=== PATIENT | male | born 1945 | race Caucasian/White ===

== ENCOUNTER → 2016-03-22 | Outpatient (CLI) | payer MEDICARE ==
[~2016-03-22] MED LIST: AMIO200T2 PO; APIX2.5T PO; APIX5TAB PO; ASP325T PO; ASPI-86 PO; ASPI-983 PO; ATEN25TA PO; ATEN50TA PO; ATOR10TA66 PO; ATOR40TA PO; ATRV10T PO; AZIT250T PO; BUME1TAB4 PO; CEFD300C3 PO; CIPR-242 PO; CLIN300C11 PO; CLOP75TA PO; CLOP75TA28 PO; CLPD75T PO; DOXY100C2 PO; FERR-57 PO; FRSM40T PO; FURO40TA4 PO; GABA-488 PO; GABA300T PO; GBPN300C; GLBR5T; GLBR5T PO; HYDR-3714 PO; HYDR-3812 PO; HYDR115S2 PO; INSU100C7 SQ; INSU100I14 SC; INSU100I29 SC; INSU100I29 SQ; INSU100I4 SQ; INSU100V SQ; INSU100V16 SC; INSU100V5 SQ; INSU100V6 SQ; IPRA3AMP INH; MAGN400T6 PO; METF1000 PO; MPR22T TOP; MTF500T PO; MULT-517 PO; NORM2DIS3 IV; ONDA4VIA28 IV; POTA20TA8 PO; QNPR10T PO; QUIN20TA27 PO; RANI150T11 PO; SULF-222 PO; SULF1TAB35 PO; [UNRECOGNIZED DRUG - CODE]
--- OUTSIDE RECORDS SUMMARY | 2016-03-22 09:02 | XMS REPORT | Continuity of Care Document ---
Author Author [facility] Organization [facility] Address Unknown Phone Unavailable Care Team Providers Care Rn Radiation Oncology Name Role Phone TAMIKA WHITE DO PCP Insurance Providers Payer Name Policy Number Subscriber Name Relationship Wps Medicare [id number] Teto Cho 18 Self / Same As Patient Blue Cross [facility] Supp [id number] Teto Cho 18 Self / Same As Patient Advance Directives Directive Response Recorded Date/Time Advance Directives No 07/30/14 7:11am Health Care Power of Transportation Aid No 07/30/14 7:11am Organ Donor No 07/30/14 [...] Encounters Encounter Location Date/Time Discharged Recurring Via [facility] 09/01/14 11:00am
--- NOTE | 2016-03-22 12:02 | Diagnostic Imaging Report ---
Examination: Segmental lower extremity pressure assessment and ankle brachial index measurement. Post volume recording waveforms are also obtained in the lower extremities. Indication: Peripheral arterial disease Findings: Systolic pressure in the right Upper extremity is 116, and the left Upper extremity is 119 mmHg. RIGHT Lower extremity systolic pressures are: In the upper thigh not performed , in the lower thigh 128, in the upper calf above 180, and at the ankle 146. Great toe pressure is 52. LEFT Lower extremity systolic pressures are: In the upper thigh not performed , in the lower thigh 129, in the upper calf above 180, and at the ankle above 270. Great toe pressure is 94. NICK on the right is 1.2, and on the left is falsely elevated. Pulse volume recordings waveforms demonstrate mild dampening on the waveforms at the ankle and the significant dampening of the waveform at the right big toe. Impression: Suggestion of calcified vessels resulting in elevated pressure measurements. There is dampening of the PVR waveforms at the ankles and the in the right great toe. Dictated by: Dictated on workstation # [id number]
== END ==
LOC: RAD 08:59
PROVIDERS: ATTEND Internal Medicine
DX: I70.232 Atherosclerosis of native arteries of right leg with ulceration of calf (principal); L97.212 Non-pressure chronic ulcer of right calf with fat layer exposed; E11.622 Type 2 diabetes mellitus with other skin ulcer
CPT/HCPCS: 93923

== ENCOUNTER 2016-03-24 10:10 | Outpatient (RCR) | payer MEDICARE ==
[~2016-03-24 10:10] MED LIST changes: -APIX5TAB PO
--- OUTSIDE RECORDS SUMMARY | 2016-03-24 10:13 | XMS REPORT | Continuity of Care Document ---
Author Author [facility] Organization [facility] Address Unknown Phone Unavailable Care Team Providers Care Merchandise Stocker Name Role Phone TAMIKA WHITE DO PCP Insurance Providers Payer Name Policy Number Subscriber Name Relationship Wps Medicare [id number] Teto Cho 18 Self / Same As Patient Blue Cross [facility] Supp [id number] Teto Cho 18 Self / Same As Patient Advance Directives Directive Response Recorded Date/Time Advance Directives No 07/30/14 7:11am Health Care Power of Mainframe Applications Developer No 07/30/14 7:11am Organ Donor No 07/30/14 [...] Encounters Encounter Location Date/Time Discharged Recurring Via [facility] 09/01/14 11:00am
== END 2016-06-22 | disposition home or self-care (01) ==
LOC: DSME 10:10
PROVIDERS: ATTEND Family Medicine
DX: E11.65 Type 2 diabetes mellitus with hyperglycemia (principal)

== ENCOUNTER 2016-06-09 08:41 | Outpatient (RCR) | payer MEDICARE ==
--- OUTSIDE RECORDS SUMMARY | 2016-03-17 08:20 | XMS REPORT | Continuity of Care Document ---
Author Author [facility] Organization [facility] Address Unknown Phone Unavailable Care Team Providers Care Sales Trader Name Role Phone TAMIKA WHITE DO PCP Insurance Providers Payer Name Policy Number Subscriber Name Relationship Wps Medicare [id number] Teto Cho 18 Self / Same As Patient Blue Cross [facility] Supp [id number] Teto Cho 18 Self / Same As Patient Advance Directives Directive Response Recorded Date/Time Advance Directives No 07/30/14 7:11am Health Care Power of Environmental Advisor No 07/30/14 7:11am Organ Donor No 07/30/14 7:11am Problems Medical Problems Problem Onset Date Status Diabetes mellitus Unknown Active Diabetes mellitus Unknown Active Acute renal insufficiency Unknown Active Poorly controlled diabetes mellitus Unknown Active Near syncope Unknown Active Medications Medication Dose Route Sig Days/Qty Instructions Order Date Discontinued Date Status Glyburide 06/07/06 10/14/08 Discontinued Gabapentin 06/07/06 10/14/08 Discontinued Furosemide 40 Mg PO TWICE A DAY 06/07/06 Active Metformin HCl (Glucophage) 500 Mg PO TWICE A DAY 06/07/06 07/31/14 Discontinued Quinapril HCl 10 Mg PO DAILY 06/07/06 07/31/14 Discontinued Atorvastatin Calcium 40 Mg PO DAILY 06/07/06 12/30/09 Discontinued Insulin Human Lente 06/07/06 10/14/08 Discontinued Insulin Human Lente 06/07/06 10/14/08 Discontinued Insulin Human Lente 06/07/06 10/14/08 Discontinued Glyburide 5 Mg PO TWICE A DAY 10/14/08 01/20/14 Discontinued Gabapentin (Neurontin) 300 Mg PO THREE TIMES A DAY 10/14/08 Active Clopidogrel Bisulfate 75 Mg PO DAILY 10/14/08 01/20/14 Discontinued Atenolol 50 Mg PO DAILY 10/14/08 01/20/14 Discontinued Aspirin 81 Mg PO DAILY 10/14/08 12/30/09 Discontinued Ferrous Sulfate 325 Mg PO DAILY 12/29/09 06/03/11 Discontinued Insulin Glargine,Hum.rec.anlog 55 Unit SQ DAILY TAKEN IN AM DAILY 12/2912/29/09 Discontinued Insulin Glargine,Hum.rec.anlog 40 Unit SQ DAILY 12/29/09 12/29/09 Discontinued Insulin Lispro Protam/Lispro Human 55 U SQ DAILY TAKEN IN AM 12/29/09 09/07/13 Discontinued Insulin Lispro Protam/Lispro Human 40 U SQ DAILY 12/29/09 09/07/13 Discontinued Aspirin 325 Mg PO DAILY 12/30/09 Active Atorvastatin Calcium 40 Mg PO BEDTIME 12/30/09 07/31/14 Discontinued Acetaminophen/Hydrocodone Bitart 1 Tab PO TWICE A DAY PRN PAIN Active Insulin Glargine 40 Units SQ DAILY 09/07/13 Active Mupirocin 22 Gm TOP TWICE A DAY 1 Qty 09/07/13 07/24/14 Discontinued Atenolol 25 Mg PO BEDTIME 01/20/14 07/31/14 Discontinued Insulin Glargine,Hum.rec.anlog 30 Unit SQ BEDTIME 07/24/14 Active Clopidogrel Bisulfate 75 Mg PO DAILY 07/24/14 Active Atorvastatin Calcium 10 Mg PO BEDTIME 07/31/14 Active Atenolol 25 Mg PO BEDTIME TAKES 1/2 (50MG) TABLET 07/31/14 Active Metformin Hcl 500 Mg PO TWICE A DAY 07/31/14 Active Quinapril Hcl 10 Mg PO DAILY TAKES 1/2 (20MG) TABLET 07/31/14 Active Social History Social History Problem Response Recorded Date/Time Alcohol Use Denies Use 07/24/2014 9:40am Recreational Drug Use No 07/24/2014 9:40am Recent Foreign Travel No 09/29/2013 9:26pm Recent Infectious Disease Exposure No 09/29/2013 9:26pm Hospital Discharge Instructions No hospital discharge instructions. Plan of Care No plan of care. Functional Status No functional status results. Allergies, Adverse Reactions, Alerts Allergen Type Severity Reaction Status Last Updated NKANo Known Allergies Allergy Unknown Active 06/07/06 Immunizations Name Given Type Tetanus Booster (TDap) Less than 5yrs Historical Vital Signs No known vital signs results. Results No known relevant diagnostic tests, laboratory data and/or discharge summary. Procedures No known history of procedures. Encounters Encounter Location Date/Time Discharged Recurring Via [facility] 09/01/14 11:00am
== END 2016-06-15 | disposition home or self-care (01) ==
LOC: WOUNDCARE 08:41
PROVIDERS: ATTEND Internal Medicine
DX: L97.212 Non-pressure chronic ulcer of right calf with fat layer exposed (principal); E11.622 Type 2 diabetes mellitus with other skin ulcer; I87.331 Chronic venous hypertension (idiopathic) with ulcer and inflammation of right lower extremity; E66.01 Morbid (severe) obesity due to excess calories; I89.0 Lymphedema, not elsewhere classified; I70.232 Atherosclerosis of native arteries of right leg with ulceration of calf
CPT/HCPCS: 11042; 29581; 87070; 87075; 87101; 87186; 87205; 99214

== ENCOUNTER 2016-07-13 08:04 | Day surgery (SDC) | payer MEDICARE ==
[2016-07-13] VITALS (10 sets, daily range): BP systolic 136–172; BP diastolic 81–97
[~2016-07-13] VITALS: Ht 172.7 cm; Wt 148.9 kg
[2016-07-13] MEDS ORDERED: HEParin (CATH LAB) 2,000 ML IV ONE (08:12)
[2016-07-13] MEDS ORDERED: NS IV 1000 ML 1,000 ML ONE (08:12)
[2016-07-13] MEDS ORDERED: LIDOCAINE 1% INJ 20 ML (XYLOCAINE) VIAL ONE (08:12)
[2016-07-13] MEDS ORDERED: NS IV 1000 ML 1,000 ML IV SCH ×2 (08:45→11:58)
[2016-07-13 08:59] LABS: MEAN PLATELET VOLUME 10.4 FL (7.4-10.4); RED BLOOD COUNT 4.15 10^6/uL (4.35-5.85); RED CELL DISTRIBUTION WIDTH 14.2 % (10.0-14.5); WHITE BLOOD COUNT 5.5 10^3/uL (4.3-11.0)
[2016-07-13 09:13] LABS: INR 1.2 (0.8-1.4); PROTHROMBIN TIME PATIENT 14.6 SEC (12.2-14.7)
[2016-07-13 09:22] LABS: ALBUMIN 3.5 G/DL (3.2-4.5); BILIRUBIN,TOTAL 0.8 MG/DL (0.1-1.0); CALCIUM 9.5 MG/DL (8.5-10.1); CREATININE SERUM 1.42 MG/DL (0.60-1.30); POTASSIUM 4.3 MMOL/L (3.6-5.0); TOTAL PROTEIN 6.7 G/DL (6.4-8.2)
[2016-07-13] MEDS ORDERED: APIX5TAB PO (09:39)
--- NOTE | 2016-07-13 10:38 | Diagnostic Imaging Report ---
INDICATION: Coronary artery disease EXAMINATION: Portable chest at 8:56 AM Heart size and pulmonary vascularity are normal. Lungs are clear. There are no effusions or pneumothoraces. IMPRESSION: Negative chest Dictated by: Dictated on workstation # [id number]
--- NOTE | 2016-07-13 11:06 | Cardiac Procedure Note-CS/ASA ---
Pre-Procedure Note Pre-Op Procedure Note H&P Reviewed The H&P was reviewed, patient examined and no changes noted. Date H&P Reviewed: July 13, 2016 Time H&P Reviewed: 11:05 Conscious Sedation Pre-Proced Time Reviewed: 11:05 ASA Class: 3 Airway Mallampati Classification: (navajo appropriate class) I. II. III, IV Lungs Heart ASA score ASA 1: a normal healthy patient ASA 2: a patient with a mild systemic disease (mid diabetes, controlled hypertension, obesity x ASA 3: a patient with a severe systemic disease that limits activity (angina , COPD, prior Myocardial infarction) ASA 4: a patient with an incapacitating disease that is a constant threat to life (CHF, renal failure) ASA 5: a moribund patient not expected to survive 24 hrs. (ruptured aneurysm) ASA 6: a declared brain patient whose organs are being harvested. For emergent operations, add the letter E after the classification Grade 3 Sedation Plan: Analgesia, Amnesia, Plan communicated to team members, Discussed options with patient/fam, Discussed risks with patient/fam Note The patient is an appropriate candidate to undergo the planned procedure, sedation, and anesthesia. The patient immediately re-assessed prior to indication. CAROL MARTINEZ MD July 13, 2016 11:06
[2016-07-13] MEDS ORDERED: MIDAZOLAM 5 MG/5 ML (VERSED) VIAL ONE (11:07)
[2016-07-13] MEDS ORDERED: fentaNYL INJECTION 100 MCG/2 ML AMP ONE (11:07)
[2016-07-13] MEDS ORDERED: PATIENT MAY USE OWN MEDS, ALL PO SCH (12:00)
--- NOTE | 2016-07-13 12:00 | Discharge Inst-Post CATH ---
Discharge Inst-CATH Post Cardiac Cath D/C Inst Follow Up/Plan Appointment with Dr Kamara's office in 2-4 weeks CARDIAC CATH DISCHARGE INSTRUCTIONS *Hold Metformin for 48 hours post heart cath. ACTIVITY * Go Home directly and rest. * Limit activity of the leg (or wrist if it was used) for 7 days including aerobics, swimming, jogging, bicycling, etc. * Restrict stair-climbing for 7 days if possible, if not, climb up with your non -cath leg, then bring together on the same step. * Avoid lifting, pushing, pulling or excessive movement of the affected extremity for 7 days. * Customary sexual activity may be resumed after 2 days-use caution not to use a position that strains or causes pain to the affected extremity. * No driving for 24 hours. * NO SMOKING. * Avoid straining for bowel movements for 7 days. * Gentle walking on level ground is allowed. * Returning to work will depend on the type of procedure and the results. Your doctor will discuss this with you. CALL YOUR DOCTOR FOR ANY OF THE FOLLOWING: *If bleeding from the puncture site occurs- Apply gentle pressure to site with clean cloth and call your doctor or EMS. * If a knot or lump forms under the skin, increases in size, or causes pain. * If bruising appears to be worsening or moving further down your leg instead of disappearing. * Temperature above 101 F. CARE OF YOUR GROIN INCISION; * Bruising or purple discoloration of the skin near the puncture site is common. * You may shower only, no bathtub bathing for 5 days. Be careful to avoid slipping as your leg may feel stiff. * If a closure device was used on your femoral artery, please see the attached guide regarding care of the device and your leg. * REMOVE the dressing from your groin the next day after your procedure in the shower. CARE OF YOUR WRIST INCISION; * Bruising or purple discoloration of the skin near the puncture site is common. * You may shower. * DO NOT submerge wrist. * Remove dressing in 24 hours. CAROL KAMARA MD July 13, 2016 12:00
--- NOTE | 2016-07-14 10:08 | CARDIAC CATHETERIZATION ---
DATE OF SERVICE: 07/13/2016 PROCEDURES: 1. CARDIAC CATHETERIZATION 2. ANGIOGRAMS TO LOWER EXTREMITIES. BRIEF HISTORY: The patient is a 71-year-old gentleman with history of coronary artery disease. He had a nonhealing foot ulcer. He had abnormal CT angiogram of the leg. He was scheduled for peripheral angiogram. Due to his extensive coronary artery disease we discussed the need for stress test. Patient requested to evaluate his coronary arteries if we did not use large amount of contrast. At the end of the diagnostic peripheral angiogram I used only 25 mL of contrast. I decided to proceed with coronary angiogram to evaluate his coronary anatomy. The total contrast used in this study was 56 mL and total radiation dose was 423 mGy. PROCEDURE NOTE: After explaining the procedure to the patient, all pros and cons were explained, all questions were answered. The patient signed the consent. Then he was taken to the cardiac catheterization laboratory. Left groin was prepped in a sterile fashion. Local anesthesia applied to the left groin. A 6 Nauruan sheath was placed in the left femoral artery. Runoff of the left lower extremity was done through the sheath then I advanced the Pigtail catheter to the abdominal aorta and abdominal aortogram was done. Then using the Pigtail catheter I advanced Torque wire to the right lower extremity and advanced distally. Then a straight catheter was placed at the right common iliac artery and angiogram was done. Then I advanced it down to the popliteal artery and angiogram to the trifurcation was done. Then another imaging was done to the foot level arteries. At this point, I pulled back the straight catheter and advanced Sanjiv left catheter. Coronary angiogram was done, then exchanged it to Sanjiv right catheter and angiogram was done. I advanced Pigtail catheter to the left ventricular cavity. Pressure was measured. No left ventriculogram was done. At the end of the procedure sheath was removed. Mynx device deployed and hemostasis achieved. FINDINGS: HEMODYNAMICS: LV pressure is 120/5. End diastolic pressure of 5. Aortic pressure 122/54 with mean of 84. ANATOMY: 1. The left main coronary artery is bifurcating to the left anterior descending and left circumflex artery with no obstructive disease. 2. Left anterior descending artery has patent stent with mild atherosclerotic disease proximally, nonobstructive disease. 3. Left circumflex artery is moderate in size. The distal portion of the circumflex artery appeared to be occluded. Small artery getting filled by collaterals. 4. Right coronary artery is a dominant artery with mild to moderate disease, nonobstructive disease. 5. Abdominal aortogram showed normal bifurcation. No dissection or aneurysm. 6. Left lower extremity runoff was done through the sheath with 2 different imaging studies. There is good flow down to the foot. 7. The left lower extremity angiogram showed moderate atherosclerotic disease. There is slow flow below the trifurcation but overall nonobstructive disease. CONCLUSION: 1. Mild to moderate peripheral arterial disease, nonobstructive disease in both lower extremities. Calcification was noted with slow flow. 2. Patent stent in the left anterior descending artery and right coronary artery with mild to moderate coronary artery disease. 3. Occlusion of the distal branch of the circumflex artery, fairly small artery not amendable to intervention. 4. Normal left ventricular end diastolic pressure. DISCUSSION AND RECOMMENDATION: 1. The patient's foot ulcer is probably venous ulcer. 2. Mild to moderate peripheral arterial disease, nonobstructive disease. 3. Patent stent in the coronary system with mild to moderate coronary artery disease, occlusion of a small branch of the circumflex artery fairly small artery getting filled by collaterals. 4. Atherosclerotic disease in the abdominal aorta. No dissection or aneurysm. 5. In discussion and recommendation, I will continue maximizing medical therapy. No intervention is warranted. FINAL DIAGNOSES: 1. Peripheral arterial disease. 2. Coronary artery disease. 3. Hypertension. 4. Hyperlipidemia. 5. Chronic renal insufficiency. Job ID: [id number] DocumentID: [id number] Dictated Date: 07/13/2016 12:07:02 Access Developer Date: 07/13/2016 14:38:38 Dictated By: CAROL MARTINEZ MD
== END 2016-07-13 16:55 | disposition home or self-care (01) ==
LOC: CATH 08:04 → SURG 12:20 → CATH 12:20 → ICU 13:55 → SURG 13:55 → UNDOFXSDCSVC 13:55 → CATH 16:55
PROVIDERS: ATTEND Internal Medicine Cardiovascular Disease
DX: I25.10 Atherosclerotic heart disease of native coronary artery without angina pectoris (principal); I70.203 Unspecified atherosclerosis of native arteries of extremities, bilateral legs; L97.819 Non-pressure chronic ulcer of other part of right lower leg with unspecified severity; E11.621 Type 2 diabetes mellitus with foot ulcer; E11.22 Type 2 diabetes mellitus with diabetic chronic kidney disease; I70.0 Atherosclerosis of aorta; N18.9 Chronic kidney disease, unspecified; I12.9 Hypertensive chronic kidney disease with stage 1 through stage 4 chronic kidney disease, or unspecified chronic kidney disease; G47.33 Obstructive sleep apnea (adult) (pediatric); J44.9 Chronic obstructive pulmonary disease, unspecified; E66.9 Obesity, unspecified; Z79.899 Other long term (current) drug therapy; Z79.4 Long term (current) use of insulin; Z79.01 Long term (current) use of anticoagulants; Z68.43 Body mass index [BMI] 50.0-59.9, adult
CPT/HCPCS: 36247; 36415; 71010; 75625; 75716; 75774; 80053; 80061; 85027; 85610; 85730; 87081; 93005; 93458

== ENCOUNTER 2016-07-21 08:45 | Outpatient (RCR) | payer MEDICARE ==
[~2016-07-21 08:45] MED LIST changes: +APIX5TAB PO
== END 2016-07-21 16:00 | disposition home or self-care (01) ==
LOC: WOUNDCARE 08:45
PROVIDERS: ATTEND Internal Medicine
DX: L97.212 Non-pressure chronic ulcer of right calf with fat layer exposed (principal); E11.622 Type 2 diabetes mellitus with other skin ulcer; I87.331 Chronic venous hypertension (idiopathic) with ulcer and inflammation of right lower extremity; I89.0 Lymphedema, not elsewhere classified; I70.232 Atherosclerosis of native arteries of right leg with ulceration of calf; B35.3 Tinea pedis; E66.01 Morbid (severe) obesity due to excess calories; Z68.42 Body mass index [BMI] 45.0-49.9, adult
CPT/HCPCS: 11042; 99212

== ENCOUNTER 2016-09-12 20:20 | Emergency (ER) | payer MEDICARE ==
[~2016-09-12] VITALS: Ht 172.7 cm; Wt 151.0 kg
[2016-09-12 21:13] LABS: BASOPHILS % (AUTO) 0 % (0-10); EOSINOPHILS # (AUTO) 0.3 10^3/uL (0.0-0.3); EOSINOPHILS % (AUTO) 5 % (0-10); LYMPHOCYTES # (AUTO) 1.7 X 10^3 (1.0-4.0); LYMPHOCYTES % (AUTO) 25 % (12-44); MEAN CORPUSCULAR HEMOGLOBIN 27 PG (25-34); MEAN CORPUSCULAR HGB CONC 31 G/DL (32-36); MEAN CORPUSCULAR VOLUME 85 FL (80-99); MEAN PLATELET VOLUME 10.5 FL (7.4-10.4); MONOCYTES # (AUTO) 0.5 X 10^3 (0.0-1.0); MONOCYTES % (AUTO) 7 % (0-12); NEUTROPHILS # (AUTO) 4.3 X 10^3 (1.8-7.8); NEUTROPHILS % (AUTO) 62 % (42-75); PLATELET COUNT 206 10^3/uL (130-400); RED BLOOD COUNT 3.81 10^6/uL (4.35-5.85); RED CELL DISTRIBUTION WIDTH 14.6 % (10.0-14.5); WHITE BLOOD COUNT 6.9 10^3/uL (4.3-11.0)
[2016-09-12 21:32] LABS: TROPONIN I < 0.30 NG/ML (<0.30)
[2016-09-12 21:50] LABS: ALANINE AMINOTRANSFERASE 13 U/L (0-55); ANION GAP 9 MMOL/L (5-14); ASPARTATE AMINO TRANSFERASE 18 U/L (5-34); BILIRUBIN,TOTAL 0.5 MG/DL (0.1-1.0); BLOOD UREA NITROGEN 13 MG/DL (7-18); BUN/CREATININE RATIO 11; CARBON DIOXIDE 28 MMOL/L (21-32); CHLORIDE 99 MMOL/L (98-107); CREATININE SERUM 1.18 MG/DL (0.60-1.30); GFR ESTIMATED > 60; GLUCOSE 172 MG/DL (70-105); MAGNESIUM 1.5 MG/DL (1.8-2.4); POTASSIUM 3.9 MMOL/L (3.6-5.0); SODIUM 136 MMOL/L (135-145); TOTAL PROTEIN 6.2 GM/DL (6.4-8.2); hs C REACTIVE PROTEIN 0.59 MG/DL (0.00-0.50)
--- NOTE | 2016-09-12 22:01 | Diagnostic Imaging Report ---
INDICATION: Shortness of breath. COMPARISON: 07/13/16. FINDINGS: There is cardiomegaly. There is unchanged elevation of the right hemidiaphragm. There is no pleural effusion or pneumothorax. The mediastinum is unremarkable. IMPRESSION: No acute cardiopulmonary abnormality. Cardiomegaly. Dictated by: Dictated on workstation # [id number]
[2016-09-12] MEDS ORDERED: RT-ALBUTEROL/IPRATROPIUM 3 ML (DUONEB) VIAL INH ONE (22:15)
--- NOTE | 2016-09-12 23:35 | ED General ---
General Chief Complaint: Respiratory Problems Stated Complaint: SOB,LT HAND NEUROPATHY Nursing Triage Note: Pt reports SOA with this morning, primarily with exertion. pt c/o left hand numbness starting this am as well. history of neuropathy. pt states he believes his legs are swelling also but has wraps from wound care d/t diabetic ulcers so has not seen his legs. pt amb with walker but assisted from waiting room in . Daughter in law at bedside. Nursing Sepsis Screen: No Definite Risk Source of Information: Patient Exam Limitations: No Limitations History of Present Illness Time Seen by Provider: 20:37 Initial Comments This 71-year-old gentleman presents to the emergency room with complaints of tachycardia and dyspnea with exertion as well as generalized fatigue. He has these issues chronically but notes an abrupt worsening this morning. He saw Dr. Kamara in the clinic today but did not mention this abrupt change. He has had some productive cough without fever. He does have COPD and is dependent on supplemental oxygen. He has complications from diabetes including lower extremity ulcers for which he sees wound care at [place]. He has compressive wraps which he has been instructed to not remove. He has significant chronic lower extremity edema and neuropathy. Review of his chart reveals a recent cardiac and peripheral angiogram performed by Dr. Kamara. There was no obstructive coronary disease and no obstructive peripheral artery disease. Vital signs are within normal limits. Patient additionally complains of paresthesia in the left hand in the distribution of ulnar nerve palsy. This is a recurrent problem and not acute. Allergies and Home Medications Allergies Coded Allergies: PING Inhibitors (Verified Allergy, Mild, 05/16/15) UNCONTROLLED COUGHING amoxicillin (Verified Allergy, Mild, itching (PT HAS RECEIVED CEFEPIME & ANCEF IN THE PAST), 11/25/15) Home Medications Apixaban 5 Mg Tablet, 5 MG PO BID, (Reported) Aspirin 81 Mg Tablet.dr, 81 MG PO DAILY, (Reported) Atorvastatin Calcium 10 Mg Tablet, 10 MG PO HS, (Reported) Furosemide 40 Mg Tablet, 40 MG PO DAILY, (Reported) Gabapentin 300 Mg Capsule, 300 MG PO BID, (Reported) Hydrocodone/Acetaminophen 1 Each Tablet, 1 TAB PO DAILY, (Reported) Insulin Aspart 300 Units/3 Ml Solution, 4-12 UNITS SC ACHS, (Reported) Insulin Detemir 100 Unit/1 Ml Insuln.pen, 40 UNITS SC BID, (Reported) Magnesium Oxide 400 Mg Tablet, 400 MG PO BID, #10 Prescribed by: LIZET FRAZIER on 09/13/16 0803 Multivitamin 1 Each Tablet, 1 TAB PO DAILY, (Reported) Ranitidine HCl 150 Mg Tablet, 150 MG PO BID, (Reported) Constitutional: see HPI EENTM: no symptoms reported Respiratory: see HPI Cardiovascular: see HPI Gastrointestinal: no symptoms reported Genitourinary: no symptoms reported Musculoskeletal: no symptoms reported Skin: see HPI Psychiatric/Neurological: See HPI Hematologic/Lymphatic: See HPI Immunological/Allergic: no symptoms reported Past Mfwuint-Keuogf-Vgbift Hx Patient Social History Alcohol Use: Denies Use Recreational Drug Use: No Smoking Status: Never a Smoker Recent Foreign Travel: No Contact w/Someone Who Travel: No Recent Infectious Disease Expo: No Recent Hopitalizations: Yes (11/27/15) Immunizations Up To Date Tetanus Booster (TDap): Less than 5yrs PED Vaccines UTD: Yes Seasonal Allergies Seasonal Allergies: No Surgeries HX Surgeries: Yes Surgeries: Cardiac, Coronary Stent, Orthopedic, Tonsillectomy Respiratory Hx Respiratory Disorders: Yes (HAS CPAP BUT DOESN'T USE IT) Respiratory Disorders: Sleep Apnea, COPD Cardiovascular Hx Cardiac Disorders: Yes Cardiac Disorders: Chronic Edema/Swelling, Coronary Artery Disease, Heart Attack, High Cholesterol, Hypertension, Irregular Heartbeat, Peripheral Vascular Neurological Hx Neurological Disorders: Yes Neurological Disorders: Neuropathy Reproductive System Hx Reproductive Disorders: No Sexually Transmitted Disease: No HIV/AIDS: No Genitourinary Hx Genitourinary Disorders: No Gastrointestinal Hx Gastrointestinal Disorders: Yes Gastrointestinal Disorders: Gastroesophageal Reflux Musculoskeletal Hx Musculoskeletal Disorders: Yes (R TKR) Musculoskeletal Disorders: Arthritis Endocrine Hx Endocrine Disorders: Yes Endocrine Disorders: Diabetes, Insulin dep HEENT HX ENT Disorders: No Loss of Vision: Denies Hearing Impairment: Denies, Hard of Hearing Cancer Hx Cancer: No Psychosocial Hx Psychiatric Problems: No Integumentary HX Skin/Integumentary Disorder: Yes (Chronic diabetic ulcers bilateral lower extremities) Blood Transfusions Hx Blood Disorders: No Adverse Reaction to a Blood Tr: No Family Medical History Significant Family History: Heart Disease, Stroke, Vascular Disease Family Medial History: Family history: Arthritis 19 FATHER 19 MOTHER Headache 19 FATHER 19 MOTHER Hearing loss 19 MOTHER History of - anemia 19 MOTHER Stroke 19 FATHER No Family History of: AIDS Abdominal aortic aneurysm Abdominal aortic aneurysm Prowers's disease Kaz's disease Alcoholism Alzheimer's disease Aphasia Cancer Cancer of colon Cataract Chest pain Congenital heart disease Congestive heart failure Cystic fibrosis Dementia Dysphagia Family history: Allergy Family history: Alzheimer's disease Family history: Asthma Family history: Breast disease Family history: Cardiovascular disease Family history: Coronary thrombosis Family history: Diabetes mellitus Family history: Gastrointestinal disease Family history: Glaucoma Family history: Hypertension Family history: Osteoporosis Family history: Thyroid disorder Heart disease Hereditary disease History of - disorder History of - respiratory disease History of drug abuse Human immunodeficiency virus (HIV) seropositivity Hypercholesterolemia Infertile Kidney disease Malignant neoplasm of lung Myocardial infarction Parkinson's disease Prostate cancer Psychotic disorder Seizure disorder Thyroid disease Tuberculosis Tuberculosis Visual impairment Physical Exam Vital Signs Vital Sign - Last 12Hours 09/12/16 09/12/16 20:31 22:20 Temp 97.8 Pulse 76 Resp 20 B/P (MAP) 132/66 Pulse Ox 96 O2 Delivery Room Air O2 Flow Rate 2.00 Capillary Refill : Less Than 3 Seconds General Appearance: No Apparent Distress, WD/WN, Obese HEENT: PERRL/EOMI, Normal ENT Inspection Neck: Normal Inspection Respiratory: Normal Breath Sounds, No Accessory Muscle Use, No Respiratory Distress, Wheezing (Slight) Cardiovascular: Regular Rate, Rhythm, No Murmur, Other (Severe lower extremity bilateral edema) Gastrointestinal: Non Tender, Soft Extremity: Other (Lower extremities are both covered with compressive wrap patient has been instructed to not remove. Patient denies any new tenderness in the legs. 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 Norm as Tested Skin: Normal Color, Warm/Dry, Other (Compressive wraps in the lower extremities were not removed) Progress/Results/Core Measures Results/Orders Lab Results Laboratory Tests Test 09/12/16 21:00 Range/Units White Blood Count 6.9 4.3-11.0 10^3/uL Red Blood Count 3.81 L 4.35-5.85 10^6/uL Hemoglobin 10.1 L 13.3-17.7 G/DL Hematocrit 33 L 40-54 % Mean Corpuscular Volume 85 80-99 FL Mean Corpuscular Hemoglobin 27 25-34 PG Mean Corpuscular Hemoglobin Concent 31 L 32-36 G/DL Red Cell Distribution Width 14.6 H 10.0-14.5 % Platelet Count 206 130-400 10^3/uL Mean Platelet Volume 10.5 H 7.4-10.4 FL Neutrophils (%) (Auto) 62 42-75 % Lymphocytes (%) (Auto) 25 12-44 % Monocytes (%) (Auto) 7 0-12 % Eosinophils (%) (Auto) 5 0-10 % Basophils (%) (Auto) 0 0-10 % Neutrophils # (Auto) 4.3 1.8-7.8 X 10^3 Lymphocytes # (Auto) 1.7 1.0-4.0 X 10^3 Monocytes # (Auto) 0.5 0.0-1.0 X 10^3 Eosinophils # (Auto) 0.3 0.0-0.3 10^3/uL Basophils # (Auto) 0.0 0.0-0.1 10^3/uL Sodium Level 136 135-145 MMOL/L Potassium Level 3.9 3.6-5.0 MMOL/L Chloride Level 99 98-107 MMOL/L Carbon Dioxide Level 28 21-32 MMOL/L Anion Gap 9 5-14 MMOL/L Blood Urea Nitrogen 13 7-18 MG/DL Creatinine 1.18 0.60-1.30 MG/DL Estimat Glomerular Filtration Rate > 60 BUN/Creatinine Ratio 11 Glucose Level 172 H 70-105 MG/DL Calcium Level 9.0 8.5-10.1 MG/DL Magnesium Level 1.5 L 1.8-2.4 MG/DL Total Bilirubin 0.5 0.1-1.0 MG/DL Aspartate Amino Transf (AST/SGOT) 18 5-34 U/L Alanine Aminotransferase (ALT/SGPT) 13 0-55 U/L Alkaline Phosphatase 67 40-136 U/L Troponin I < 0.30 <0.30 NG/ML C-Reactive Protein High Sensitivity 0.59 H 0.00-0.50 MG/DL B-Type Natriuretic Peptide 71.3 <100.0 PG/ML Total Protein 6.2 L 6.4-8.2 GM/DL Albumin 3.0 L 3.2-4.5 GM/DL My Orders Orders - LIZET LOPEZ MD BNP (09/12/16 21:04) Cbc With Automated Diff (09/12/16 21:04) Comprehensive Metabolic Panel (09/12/16 21:04) Hs C Reactive Protein (09/12/16 21:04) Magnesium (09/12/16 21:04) Troponin I (09/12/16 21:04) Saline Lock/Iv-Start (09/12/16 21:04) Ekg Tracing (09/12/16 21:04) Monitor-Rhythm Ecg Trace Only (09/12/16 21:04) Chest Pa/Lat (2 View) (09/12/16 21:04) Albuterol/Ipra Inhalation Soln (Duoneb I (09/12/16 22:15) Svn Sm Volume Nebulizer Rt-Rfs (09/12/16 22:03) Medications Given in ED Vital Signs/I&O Blood Pressure Mean: 88 Progress Note : Progress Note Chest x-ray was unremarkable. There was no evidence of pneumonia. Labs and vitals did not suggest infection. Case was reviewed with Dr. Kamara. Pulmonary embolus was felt on likely as patient reports good compliance with Eliquis. Patient has been taking the 2.5 mg dose. It is unclear to me why he is taking a look was but from his description it sounds like this is for cardiac prophylaxis. Patient had initially been taking 5 mg twice daily but the dose was reduced by Dr. White due to hematuria. Patient was offered CT angiogram of the chest to definitively rule out PE. He declined the CT angiogram after discussion of risks and benefits. He prefers to just increase his Eliquis dose back to 5 mg twice a day and discuss further with Dr. Kamara and Dr. White. Magnesium was slightly low. A prescription for 5 days of magnesium replacement was sent to [facility]. ECG Initial ECG Impression Date: Sep 12, 2016 Initial ECG Impression Time: 21:15 Initial ECG Rate: 78 Comment Sinus arrhythmia with no ST elevation or depression. Right bundle branch block. No axis deviation. Diagnostic Imaging Diagonstic Imaging: Xray Plain Films/CT/US/NM/MRI: chest Comments NAME: JAYESH LOVE Cymbet REC#: [id number] PT STATUS: REG ER : 1945 PHYSICIAN: LIZET LOPEZ MD ADMIT DATE: 09/12/16/ER Draft Date of Exam:09/12/16 CHEST PA/LAT (2 VIEW) INDICATION: Shortness of breath. COMPARISON: 07/13/16. FINDINGS: There is cardiomegaly. There is unchanged elevation of the right hemidiaphragm. There is no pleural effusion or pneumothorax. The mediastinum is unremarkable. IMPRESSION: No acute cardiopulmonary abnormality. Cardiomegaly. Dictated on workstation # [id number] Dict: 09/12/16 2158 Trans: 09/12/16 2200 [facility] [id number] Interpreted by: NARINDER ROBLES Departure Impression Impression: Primary Impression: Dyspnea on exertion Additional Impressions: Generalized weakness Hypomagnesemia Disposition: 01 HOME, SELF-CARE Condition: Stable Departure-Patient Inst. Decision time for Depature: 23:30 Referrals: TAMIKA WHITE DO (PCP/Family) Primary Care Physician Patient Instructions: Shortness of Breath (Dyspnea) Add. Discharge Instructions: Increase your Eliquis to 5 mg twice daily until your able to follow-up with Dr. Kamara and Dr. White. Please follow-up with them as soon as possible. Return to ER if symptoms worsen. All discharge instructions reviewed with patient and/or family. Voiced understanding. Scripts Magnesium Oxide (Magox 400) 400 Mg Tablet 400 MG PO BID, #10 TAB Prov: LIZET LOPEZ MD 09/13/16 Copy Copies To 1: TAMIKA WHITE DO Copies To 2: CAROL KAMARA MD, JOSHUA T MD Sep 12, 2016 23:34
[2016-09-13 00:12] VITALS: BP 140/48
[2016-09-13] MEDS ORDERED: MAGN400T29 PO (08:03)
--- OUTSIDE RECORDS SUMMARY | 2016-09-13 18:31 | XMS REPORT | Continuity of Care Document ---
Author Author [facility] Organization [facility] Address Unknown Phone Unavailable Allergies Active Description Code Type Severity Reaction Onset Reported/Identified Relationship to Patient Clinical Status Yes NKANo Known Allergies NKA Miscellaneous Allergy Unknown N/ A 12/18/2014 Yes amoxicillin [id number] Drug Allergy Mild itching 05/13/2015 Yes PING Inhibitors [id number] Drug Allergy Mild N/A 05/16/2015 Yes amoxicillin [id number] Drug Allergy Mild itching (PT HAS 11/25/2015 Medications Problems Date Dx Coded Attending Type Code Diagnosis Diagnosed By PRADIP MADISON MD, Ot E11.622 TYPE 2 DIABETES MELLITUS WITH OTHER SKIN PRADIP MADISON MD Ot E66.01 MORBID (SEVERE) OBESITY DUE TO EXCESS CA PRADIP MADISON MD Ot I50.9 HEART FAILURE, UNSPECIFIED PRADIP MADISON MD Ot 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 PRADIP MADISON MD Ot 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 PRADIP MADISON MD Ot 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, STAGE 2 PRADIP MADISON MD Ot L97.212 NON-PRESSURE CHRONIC ULCER OF RIGHT CALF 02/02/1199 PRADIP MADISON MD Ot E11.622 02/02/1199 PRADIP MADISON MD Ot G47.33 02/02/1199 PRADIP MADISON MD, Ot I87.331 02/02/1199 PRADIP MADISON MD Ot L97.212 02/02/1199 PRADIP MADISON MD Ot M16.9 02/02/1199 PRADIP MADISON MD Ot M17.9 02/02/1199 PRADIP MADISON MD Ot R53.1 12/30/2009 Ot 250.00 12/30/2009 Ot 272.4 12/30/2009 Ot 278.00 12/30/2009 Ot 285.1 12/30/2009 Ot 401.9 12/30/2009 Ot 412 12/30/2009 Ot 414.01 12/30/2009 Ot 414.8 12/30/2009 Ot 459.81 12/30/2009 Ot 715.90 12/30/2009 Ot V85.43 02/15/2010 Ot V45.82 02/15/2010 Ot V57.89 11/29/2012 TAMIKA WHITE DO Ot 454.1 LEG VARICOSITY W INFLAM 11/29/2012 TAMIKA WHITE DO Ot V57.21 ENCOUNTER FOR OCCUPATIONAL THERAPY 09/07/2013 SPENCER COBB DO Ot 250.60 DIAB W NEURO MANIFEST, TYPE II OR UNSPEC 09/07/2013 SPENCER COBB DO Ot 250.70 DIAB W PERIPH CIRC DIS, TYPE II OR UNSPE 09/07/2013 SPENCER COBB DO Ot 272.0 PURE HYPERCHOLESTEROLEM 09/07/2013 SPENECR COBB DO Ot 357.2 NEUROPATHY IN DIABETES 09/07/2013 SPENCER COBB DO Ot 401.9 HYPERTENSION NOS 09/07/2013 SPENCER COBB DO Ot 412 OLD MYOCARDIAL INFARCT 09/07/2013 SPENCER COBB DO Ot 428.0 CONGESTIVE HEART FAILURE NOS 09/07/2013 SPENCER COBB DO Ot 443.81 ANGIOPATHY IN OTHER DIS 09/07/2013 SPENCER COBB DO Ot 459.81 VENOUS INSUFFICIENCY NOS 09/07/2013 SPENCER COBB DO Ot 707.10 ULCER OF LOWER LIMB NOS 09/07/2013 SPENCER COBB DO Ot 716.90 ARTHROPATHY NOS-UNSPEC 09/07/2013 SPENCER COBB DO Ot V45.82 PERCUTANEOUS TRANSLUM CORON ANGIOPLASTY 09/07/2013 SPENCER COBB DO Ot V58.62 ENCOUNT FOR LONG-TERM(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 OF AN 09/07/2013 SPENCER COBB DO Ot V58.66 LONG-TERM (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 OF ASPIRIN 09/07/2013 SPENCER COBB DO Ot V58.69 OTH MED,LT,CURRENT USE 10/01/2013 JORGE JONES, ESTELA R Ot 250.00 DIAB SHERRIE WO COMPL, TYPE II OR UNSPEC TY 10/01/2013 ESTELA PATEL MD Ot 272.0 PURE HYPERCHOLESTEROLEM 10/01/2013 ESTELA PATEL MD Ot 272.4 HYPERLIPIDEMIA NEC/NOS 10/01/2013 ESTELA PATEL MD R Ot 401.9 HYPERTENSION NOS 10/01/2013 ESTELA PATEL MD Ot 414.01 CORONARY ATHEROSCLEROSIS OF [place] CORON 10/01/2013 ESTELA PATEL MD Ot 428.0 CONGESTIVE HEART FAILURE NOS 10/01/2013 ESTELA PATEL MD R Ot 584.9 ACUTE RENAL FAILURE, UNSPECIFIED 10/01/2013 ESTELA PATEL MD Ot 780.2 SYNCOPE AND COLLAPSE 10/01/2013 ESTELA PATEL MD Ot V58.67 LONG-TERM (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 OF INSULIN 10/16/2013 TAMIKA WHITE DO Ot 454.1 LEG VARICOSITY W INFLAM 10/16/2013 TAMIKA WHITE DO Ot 707.10 ULCER OF LOWER LIMB NOS 01/20/2014 SILVA JONES, GE Casper Ot 562.10 DIVERTICULOSIS COLON (W/O MENT OF HEMORR 01/20/2014 GE ASCENCIO MD Ot 787.91 DIARRHEA 06/09/2014 Ot 786.05 06/09/2014 Ot 715.37 06/09/2014 Ot 397.0 06/09/2014 Ot 414.00 06/09/2014 Ot 424.0 06/09/2014 Ot 782.3 06/09/2014 Ot 786.09 06/09/2014 GE ASCENCIO MD Ot V72.84 06/11/2014 Ot 786.05 06/11/2014 Ot 715.37 06/11/2014 Ot 397.0 06/11/2014 Ot 414.00 06/11/2014 Ot 424.0 06/11/2014 Ot 782.3 06/11/2014 Ot 786.09 06/11/2014 GE ASCENCIO MD Ot V72.84 07/04/2014 TAMIKA WHITE DO Ot 250.00 07/04/2014 TAMIKA WHITE DO Ot 433.10 07/24/2014 Ot 786.05 07/24/2014 Ot 715.37 07/24/2014 Ot 397.0 07/24/2014 Ot 414.00 07/24/2014 Ot 424.0 07/24/2014 Ot 782.3 07/24/2014 Ot 786.09 07/24/2014 SILVA JONES, GE M Ot V72.84 07/24/2014 GRICELDA JONES, PRADIP Oviedo Ot 250.80 07/24/2014 GRICELDA JONES, PRADIP Oviedo Ot 278.01 07/24/2014 GRICELDA JONES, PRADIP Ivelisse Ot 414.01 07/24/2014 GRICELDA JONES, PRADIP Oviedo Ot 440.23 07/24/2014 GRICELDA JONES, PRADIP Oviedo Ot 459.33 07/24/2014 GRICELDA JONES, PRADIP Oviedo Ot 707.12 07/24/2014 GRICELDA JONES, PRADIP Oviedo Ot 785.9 07/24/2014 GRICELDA JONES, PRADIP Oviedo Ot V45.82 07/24/2014 GRICELDA JONES, PRADIP Oviedo Ot 443.9 07/24/2014 GRICELDA JONES, PRADIP Oviedo Ot 707.10 07/24/2014 TAMIKA WHITE DO Ot 250.00 07/24/2014 TAMIKA WHITE DO Ot 433.10 07/24/2014 JACKIE JONES, JESSICA Oviedo Ot 250.00 07/24/2014 JACKIE JONES, JESSICA Oviedo Ot 272.4 07/24/2014 JACKIE JONES, JESSICA Oviedo Ot 401.9 07/24/2014 JACKIE JONES, JESSICA Oviedo Ot 414.00 07/24/2014 JACKIE JONES, JESSICA Oviedo Ot 433.10 07/24/2014 JACKIE JONES, JESSICA Oviedo Ot 459.81 07/24/2014 JACKIE JONES, JESSICA Oviedo Ot 250.00 07/24/2014 JACKIE JONES, JESSICA Oviedo Ot 272.4 07/24/2014 JACKIE JONES, JESSICA Oviedo Ot 401.9 07/24/2014 JACKIE JONES, JESSICA Oviedo Ot 414.00 07/24/2014 JACKIE JONES, JESSICA Oviedo Ot 433.10 07/24/2014 JACKIE JONES, JESSICA Oviedo Ot 459.81 07/24/2014 Ot 786.05 07/24/2014 Ot 715.37 07/24/2014 Ot 397.0 07/24/2014 Ot 414.00 07/24/2014 Ot 424.0 07/24/2014 Ot 782.3 07/24/2014 Ot 786.09 07/24/2014 SILVA JONES, GE Casper Ot V72.84 07/24/2014 GRICELDA JONES, PRADIP Oviedo Ot 250.80 07/24/2014 GRICELDA JONES, PRADIP Oviedo Ot 278.01 07/24/2014 GRICELDA JONES, PRADIP Oviedo Ot 414.01 07/24/2014 GRICELDA JONES, PRADIP Oviedo Ot 440.23 07/24/2014 GRICELDA JONES, PRADIP Oviedo Ot 459.33 07/24/2014 GRICELDA JONES, PRADIP Oviedo Ot 707.12 07/24/2014 GRICELDA JONES, PRADIP Oviedo Ot 785.9 07/24/2014 GRICELDA JONES, PRADIP Oviedo Ot V45.82 07/24/2014 GRICELDA JONES, PRADIP Oviedo Ot 443.9 07/24/2014 GRICELDA JONES, PRADIP Oviedo Ot 707.10 07/24/2014 CHRISTOPHER CONTRERAS, TAMIKA Melchor Ot 250.00 07/24/2014 TAMIKA WHITE DO Ot 433.10 07/24/2014 JACKIE JONES, JESSICA Oviedo Ot 250.00 07/24/2014 JACKIE JONES, JESSICA Oviedo Ot 272.4 07/24/2014 JACKIE JONES, JESSICA Oviedo Ot 401.9 07/24/2014 JACKIE JONES, JESSICA Oviedo Ot 414.00 07/24/2014 JACKIE JONES, JESSICA Oviedo Ot 433.10 07/24/2014 JACKIE JONES, JESSICA Oviedo Ot 459.81 07/24/2014 JACKIE JONES, JESSICA Oviedo Ot 250.00 07/24/2014 JACKIE JONES, JESSICA Oviedo Ot 272.4 07/24/2014 JACKIE JONES, JESSICA Oviedo Ot 401.9 07/24/2014 JACKIE JONES, JESSICA Oviedo Ot 414.00 07/24/2014 JACKIE JONES, JESSICA Oviedo Ot 433.10 07/24/2014 JACKIE JONES, JESSICA Oviedo Ot 459.81 07/24/2014 Ot 786.05 07/24/2014 Ot 715.37 07/24/2014 Ot 397.0 07/24/2014 Ot 414.00 07/24/2014 Ot 424.0 07/24/2014 Ot 782.3 07/24/2014 Ot 786.09 07/24/2014 SILVA JONES, GE Casper Ot V72.84 07/24/2014 GRICELDA JONES, PRADIP Oviedo Ot 250.80 07/24/2014 GRICELDA JONES, PRADIP Oviedo Ot 278.01 07/24/2014 GRICELDA JONES, PRADIP Oviedo Ot 414.01 07/24/2014 GRICELDA JONES, PRADIP Oviedo Ot 440.23 07/24/2014 GRICELDA JONES, PRADIP Oviedo Ot 459.33 07/24/2014 GRICELDA JONES, PRADIP Oviedo Ot 707.12 07/24/2014 GRICELDA JONES, PRADIP Oviedo Ot 785.9 07/24/2014 GRICELDA JONES, PRADIP Oviedo Ot V45.82 07/24/2014 GRICELDA JONES, PRADIP Oviedo Ot 443.9 07/24/2014 GRICELDA JONES, PRADIP Oviedo Ot 707.10 07/24/2014 TAMIKA WHITE DO Ot 250.00 07/24/2014 TAMIKA WHITE DO Ot 433.10 07/24/2014 JACKIE JONES, JESSICA Oveido Ot 250.00 07/24/2014 JACKIE JONES, JESSICA Oviedo Ot 272.4 07/24/2014 JACKIE JONES, JESSICA Oviedo Ot 401.9 07/24/2014 JACKIE JONES, JESSICA Oviedo Ot 414.00 07/24/2014 JACKIE JONES, JESSICA Oviedo Ot 433.10 07/24/2014 JACKIE JONES, JESSICA Oviedo Ot 459.81 07/24/2014 JACKIE JONES, JESSICA Oviedo Ot 250.00 07/24/2014 JACKIE JONES, JESSICA Oviedo Ot 272.4 07/24/2014 JACKIE JONES, JESSICA Oviedo Ot 401.9 07/24/2014 JACKIE JONES, JESSICA Oviedo Ot 414.00 07/24/2014 JACKIE JONES, JESSICA Oviedo Ot 433.10 07/24/2014 JACKIE JONES, JESSICA Oviedo Ot 459.81 07/25/2014 GRICELDA JONES, PRADIP Oviedo Ot 443.9 07/25/2014 GRICELDA JONES, PRADIP Oviedo Ot 707.10 08/01/2014 JESUS JONES, PERLA Ulrich Ot 272.4 HYPERLIPIDEMIA NEC/NOS 08/01/2014 JESUS JONES, PERLA S Ot 401.9 HYPERTENSION NOS 08/01/2014 JESUS JONES, PERLA Ulrich Ot 412 OLD MYOCARDIAL INFARCT 08/01/2014 JESUS JONES, PERLA Ulrich Ot 433.10 CAROTID ARTERY OCCLUSION W O CEREBRAL IN 08/01/2014 JESUS JONES, PERLA S Ot 715.90 OSTEOARTHROS NOS-UNSPEC 08/04/2014 GRICELDA JONES, PRADIP Oviedo Ot 250.80 08/04/2014 GRICELDA JONES, PRADIP Oviedo Ot 278.01 08/04/2014 GRICELDA JONES, PRADIP Oviedo Ot 414.01 08/04/2014 GRICELDA JONES, PRADIP Oviedo Ot 440.23 08/04/2014 GRICELDA JONES, PRADIP Oviedo Ot 459.33 08/04/2014 GRICELDA JONES, PRADIP Oviedo Ot 707.12 08/04/2014 GRICELDA JONES, PRADIP Oviedo Ot 785.9 08/04/2014 GRICELDA JONES, PRADIP Oviedo Ot V45.82 08/04/2014 Ot 786.05 08/04/2014 Ot 715.37 08/04/2014 Ot 397.0 08/04/2014 Ot 414.00 08/04/2014 Ot 424.0 08/04/2014 Ot 782.3 08/04/2014 Ot 786.09 08/04/2014 SILVA JONES, GE Casper Ot V72.84 08/04/2014 GRICELDA JONES, PRADIP Oviedo Ot 250.80 08/04/2014 GRICELDA JONES, PRADIP Oviedo Ot 278.01 08/04/2014 GRICELDA JONES, PRADIP Oviedo Ot 414.01 08/04/2014 GRICELDA JONES, PRADIP Oviedo Ot 440.23 08/04/2014 GRICELDA JONES, PRADIP Oviedo Ot 459.33 08/04/2014 GRICELDA JONES, PRADIP Oviedo Ot 707.12 08/04/2014 GRICELDA JONES, PRADIP Oviedo Ot 785.9 08/04/2014 GRICELDA JONES, PRADIP Oviedo Ot V45.82 08/04/2014 GRICELDA JONES, PRADIP Oviedo Ot 443.9 08/04/2014 GRICELDA JONES, PRADIP Oviedo Ot 707.10 08/04/2014 TAMIKA WHITE DO Ot 250.00 08/04/2014 TAMIKA WHITE DO Ot 433.10 08/04/2014 JACKIE JONES, JESSICA Oviedo Ot 250.00 08/04/2014 JACKIE JONES, JESSICA Oviedo Ot 272.4 08/04/2014 JACKIE JONES, JESSICA Oviedo Ot 401.9 08/04/2014 JACKIE JONES, JESSICA Oviedo Ot 414.00 08/04/2014 JACKIE JONES, JESSICA G Ot 433.10 08/04/2014 JACKIE JONES, JESSICA G Ot 459.81 08/04/2014 JACKIE JONES, JESSICA Oviedo Ot 250.00 08/04/2014 JACKIE JONES, JESSICA Oviedo Ot 272.4 08/04/2014 JACKIE JONES, JESSICA G Ot 401.9 08/04/2014 JACKIE JONES, JESSICA Ivelisse Ot 414.00 08/04/2014 JACKIE JONES, JESSICA G Ot 433.10 08/04/2014 JACKIE JONES, JESSICA G Ot 459.81 08/04/2014 JESUS JONES, PERLA S Ot 433.10 08/04/2014 JESUS JONES, PERLA S Ot V72.63 08/04/2014 JESUS JONES, PERLA S Ot V72.83 08/04/2014 JESUS JONES, PERLA S Ot V74.8 08/04/2014 JACKIE JONES, JESSICA Ivelisse Ot 250.00 08/04/2014 JACKIE JONES, JESSICA G Ot 272.4 08/04/2014 JACKIE JONES, JESSICA G Ot 401.9 08/04/2014 JACKIE JONES, JESSICA G Ot 414.00 08/04/2014 JACKIE JONES, JESSICA Ivelisse Ot 433.10 08/04/2014 JACKIE JONES, JESSICA G Ot 459.81 08/19/2014 GRICELDA JONES, PRADIP Oviedo Ot 250.80 08/19/2014 GRICELDA JONES, PRADIP Oviedo Ot 278.01 08/19/2014 GRICELDA JONES, PRADIP Oviedo Ot 414.01 08/19/2014 GRICELDA JONES, PRADIP Oviedo Ot 440.23 08/19/2014 GRICELDA JONES, PRADIP Oviedo Ot 459.33 08/19/2014 GRICELDA JONES, PRADIP Oviedo Ot 707.12 08/19/2014 GRICELDA JONES, PRADIP Oviedo Ot 785.9 08/19/2014 GRICELDA JONES, PRADIP Oviedo Ot V45.82 08/19/2014 Ot 786.05 08/19/2014 Ot 715.37 08/19/2014 Ot 397.0 08/19/2014 Ot 414.00 08/19/2014 Ot 424.0 08/19/2014 Ot 782.3 08/19/2014 Ot 786.09 08/19/2014 SILVA JONES, GE Casper Ot V72.84 08/19/2014 GRICELDA JONES, PRADIP Oviedo Ot 250.80 08/19/2014 GRICELDA OJNES, PRADIP Oviedo Ot 278.01 08/19/2014 GRICELDA JONES, PRADIP Oviedo Ot 414.01 08/19/2014 GRICELDA JONES, PRADIP Oviedo Ot 440.23 08/19/2014 GRICELDA JONES, PRADIP Oviedo Ot 459.33 08/19/2014 GRICELDA JONES, PRADIP Oviedo Ot 707.12 08/19/2014 GRICELDA JONES, PRADIP Oviedo Ot 785.9 08/19/2014 GRICELDA JONES, PRADIP Oviedo Ot V45.82 08/19/2014 GRICELDA JONES, PRADIP Oviedo Ot 443.9 08/19/2014 GRICELDA JONES, PRADIP Oviedo Ot 707.10 08/19/2014 TAMIKA WHITE DO Ot 250.00 08/19/2014 TAMIKA WHITE DO Ot 433.10 08/19/2014 JACKIE JONES, JESSICA Oviedo Ot 250.00 08/19/2014 JACKIE JONES, JESSICA Oviedo Ot 272.4 08/19/2014 JACKIE JONES, JESSICA Oviedo Ot 401.9 08/19/2014 JACKIE JONES, JESSICA Oviedo Ot 414.00 08/19/2014 JACKIE JONES, JESSICA Oviedo Ot 433.10 08/19/2014 JACKIE JONES, JESSICA Oviedo Ot 459.81 08/19/2014 JACKIE JONES, JESSICA Oviedo Ot 250.00 08/19/2014 JACKIE JONES, JESSICA Oviedo Ot 272.4 08/19/2014 JACKIE JONES, JESSICA Oviedo Ot 401.9 08/19/2014 JACKIE JONES, JESSICA Oviedo Ot 414.00 08/19/2014 JACKIE JONES, JESSICA Oviedo Ot 433.10 08/19/2014 JACKIE JONES, JESSICA Oviedo Ot 459.81 08/19/2014 JESUS JONES, PERLA S Ot 433.10 08/19/2014 JESUS JONES, PERLA S Ot V72.63 08/19/2014 JESUS JONES, PERLA S Ot V72.83 08/19/2014 JESUS JONES, PERLA S Ot V74.8 08/19/2014 JACKIE JONES, JESSICA Oviedo Ot 250.00 08/19/2014 JACKIE JONES, JESSICA Oviedo Ot 272.4 08/19/2014 JACKIE JONES, JESSICA Oviedo Ot 401.9 08/19/2014 JACKIE JONES, JESSICA Oviedo Ot 414.00 08/19/2014 JACKIE JONES, JESSICA Oviedo Ot 433.10 08/19/2014 JACKIE JONES, JESSICA Oviedo Ot 459.81 08/22/2014 CHRISTOPHER DO, TAMIKA Melchor Ot 250.00 08/22/2014 CHRISTOPHER DO, TAMIKA Melchor Ot 433.10 08/22/2014 GRICELDA JONES, PRADIP Oviedo Ot 443.9 08/22/2014 PRADIP MADISON MD Ot 707.10 08/26/2014 JESUS JONES, PERLA Ulrich Ot 433.10 08/26/2014 JESUS JONES, PERLA S Ot V72.63 08/26/2014 JESUS JONES, PERLA S Ot V72.83 08/26/2014 JESUS JONES, PERLA S Ot V74.8 08/28/2014 JESUS JONES, PERLA S Ot 433.10 08/28/2014 JESUS JONES, PERLA S Ot V72.63 08/28/2014 JESUS JONES, PERLA S Ot V72.83 08/28/2014 JESUS JONES, PERLA S Ot V74.8 09/07/2014 PRADIP MADISON MD Ot 250.80 DIAB W OTH SPEC MANIFEST, TYPE II OR UNS 09/07/2014 PRADIP MADISON MD Ot 278.01 MORBID OBESITY 09/07/2014 GRICELDA JONES, PRADIP Oviedo Ot 414.01 CORONARY ATHEROSCLEROSIS OF [place] CORON 09/07/2014 PRADIP MADISON MD Ot 440.23 ATHEROSCL [place] ARTER EXTREMITIES W ULC 09/07/2014 PRADIP MADISON MD Ot 459.33 CHRONIC VENOUS HYPERTEN W ULCER/INFLAMMA 09/07/2014 PRADIP MADISON MD Ot 707.12 ULCER OF CALF 09/07/2014 PRADIP MADISON MD Ot 785.9 CARDIOVAS SYS SYMP NEC 09/07/2014 PRADIP MADISON MD Ot V45.82 PERCUTANEOUS TRANSLUM CORON ANGIOPLASTY 09/07/2014 PRADIP MADISON MD Ot V85.42 BODY MASS INDEX 45.0-49.9, ADULT 09/08/2014 Ot 786.05 09/08/2014 Ot 715.37 09/08/2014 Ot 397.0 09/08/2014 Ot 414.00 09/08/2014 Ot 424.0 09/08/2014 Ot 782.3 09/08/2014 Ot 786.09 09/08/2014 SILVA JONES, GE Casper Ot V72.84 09/08/2014 GRICELDA JONES, PRADIP Oviedo Ot 443.9 09/08/2014 GRICELDA JONES, PRADIP Oviedo Ot 707.10 09/08/2014 CHRISTOPHER DO, TAMIKA A Ot 250.00 09/08/2014 CHRISTOPHER DO, TAMIKA A Ot 433.10 09/08/2014 JACKIE JONES, JESSICA Ivelisse Ot 250.00 09/08/2014 JACKIE JONES, JESSICA Oviedo Ot 272.4 09/08/2014 JACKIE JONES, JESSICA Oviedo Ot 401.9 09/08/2014 JACKIE JONES, JESSICA Oviedo Ot 414.00 09/08/2014 JACKIE JONES, JESSICA Oviedo Ot 433.10 09/08/2014 JACKIE JONES, JESSICA Oviedo Ot 459.81 09/08/2014 JACKIE JONES, JESSICA Oviedo Ot 250.00 09/08/2014 JACKIE JONES, JESSICA Oviedo Ot 272.4 09/08/2014 JACKIE JONES, JESSICA Ivelisse Ot 401.9 09/08/2014 JACKIE JONES, JESSICA Oviedo Ot 414.00 09/08/2014 JACKIE JONES, JESSICA Oviedo Ot 433.10 09/08/2014 JACKIE JONES, JESSICA Oviedo Ot 459.81 09/08/2014 JESUS JONES, PERLA S Ot 433.10 09/08/2014 JESUS JONES, PERLA S Ot V72.63 09/08/2014 JESUS JONES, PERLA S Ot V72.83 09/08/2014 JESUS JONES, PERLA S Ot V74.8 09/08/2014 GRICELDA JONES, PRADIP Oviedo Ot 250.80 09/08/2014 GRICELDA JONES, PRADIP Oviedo Ot 278.01 09/08/2014 GRICELDA JONES, PRADIP Oviedo Ot 414.01 09/08/2014 GRICELDA JONES, PRADIP Oviedo Ot 440.23 09/08/2014 GRICELDA JONES, PRADIP Oviedo Ot 459.33 09/08/2014 GRICELDA JONES, PRADIP Oviedo Ot 707.12 09/08/2014 GRICELDA JONES, PRADIP Oviedo Ot 785.9 09/08/2014 GRICELDA JONES, PRADIP Oviedo Ot V45.82 09/08/2014 GRICELDA JONES, PRADIP Oviedo Ot 250.80 09/08/2014 GRICELDA JONES, PRADIP Oviedo Ot 278.01 09/08/2014 GRICELDA JONES, PRADIP Oviedo Ot 414.01 09/08/2014 GRICELDA JONES, PRADIP Oviedo Ot 440.23 09/08/2014 GRICELDA JONES, PRADIP Ivelisse Ot 459.33 09/08/2014 GRICELDA JONES, PRADIP Ivelisse Ot 707.12 09/08/2014 GRICELDA JONES, PRADIP Oviedo Ot 785.9 09/08/2014 GRICELDA JONES, PRADIP Oviedo Ot V45.82 09/08/2014 GRICELDA JONES, PRADIP Ivelisse Ot 250.80 09/08/2014 GRICELDA JONES, PRADIP Ivelisse Ot 278.01 09/08/2014 GRICELDA JONES, PRADIP Oviedo Ot 414.01 09/08/2014 GRICELDA JONES, PRADIP Oviedo Ot 440.23 09/08/2014 GRICELDA JONES, PRADIP Oviedo Ot 459.33 09/08/2014 GRICELDA JONES, PRADIP Ivelisse Ot 707.12 09/08/2014 GRICELDA JONES, PRADIP Ivelisse Ot 785.9 09/08/2014 GRICELDA JONES, PRADIP Oviedo Ot V45.82 09/09/2014 GRICELDA JONES, PRADIP Oviedo Ot 250.80 09/09/2014 GRICELDA JONES, PRADIP Oviedo Ot 278.01 09/09/2014 GRICELDA JONES, PRADIP Oviedo Ot 414.01 09/09/2014 GRICELDA JONES, PRADIP Oviedo Ot 440.23 09/09/2014 GRICELDA JONES, PRADIP Oviedo Ot 459.33 09/09/2014 GRICELDA JONES, PRADIP Oviedo Ot 707.12 09/09/2014 GRICELDA JONES, PRADIP Ivelisse Ot 785.9 09/09/2014 GRICELDA JONES, PRADIP Oviedo Ot V45.82 09/16/2014 GRICELDA JONES, PRADIP Oviedo Ot 250.80 09/16/2014 GRICELDA JONES, PRADIP G Ot 278.01 09/16/2014 GRICELDA JONES, PRADIP G Ot 414.01 09/16/2014 GRICELDA JONES, PRADIP G Ot 440.23 09/16/2014 GRICELDA JONES, PRADIP Oviedo Ot 459.33 09/16/2014 GRICELDA JONES, PRADIP Oviedo Ot 707.12 09/16/2014 GRICELDA JONES, PRADIP Oviedo Ot 785.9 09/16/2014 GRICELDA JONES, PRADIP Ivelisse Ot V45.82 11/03/2014 GRICELDA JONES, PRADIP Oviedo Ot 250.80 11/03/2014 GRICELDA JONES, PRADIP Oviedo Ot 278.01 11/03/2014 GRICELDA JONES, PRADIP Oviedo Ot 414.01 11/03/2014 GRICELDA JONES, PRADIP Oviedo Ot 440.23 11/03/2014 GRICELDA JONES, PRADIP Oviedo Ot 459.33 11/03/2014 GRICELDA JONES, PRADIP Oviedo Ot 707.12 11/03/2014 GRICELDA JONES, PRADIP Oviedo Ot 785.9 11/03/2014 GRICELDA JONES, PRADIP Oviedo Ot V45.82 11/04/2014 GRICELDA JONES, PRADIP Oviedo Ot 250.80 11/04/2014 GRICELDA JONES, PRADIP Oviedo Ot 414.01 11/04/2014 GRICELDA JONES, PRADIP Oviedo Ot 440.23 11/04/2014 GRICELDA JONES, PRADIP Oviedo Ot 459.33 11/04/2014 GRICELDA JONES, PRADIP Oviedo Ot 707.12 11/04/2014 GRICELDA JONES, PRADIP Oviedo Ot 785.9 11/04/2014 GRICELDA JONES, PRADIP Oviedo Ot V45.82 11/06/2014 GRICELDA JONES, PRADIP Oviedo Ot 250.80 11/06/2014 GRICELDA JONES, PRADIP Oviedo Ot 278.01 11/06/2014 GRICELDA JONES, PRADIP Oviedo Ot 414.01 11/06/2014 GRICELDA JONES, PRADIP Oviedo Ot 440.23 11/06/2014 GRICELDA JONES, PRADIP Oviedo Ot 459.33 11/06/2014 GRICELDA JONES, PRADIP Oviedo Ot 707.12 11/06/2014 GRICELDA JONES, PRADIP Oviedo Ot 785.9 11/06/2014 GRICELDA JONES, PRADIP Oviedo Ot V45.82 11/18/2014 Ot 786.05 11/18/2014 Ot 715.37 11/18/2014 Ot 397.0 11/18/2014 Ot 414.00 11/18/2014 Ot 424.0 11/18/2014 Ot 782.3 11/18/2014 Ot 786.09 11/18/2014 SILVA JONES, GE Casper Ot V72.84 11/18/2014 GRICELDA JONES, PRADIP Oviedo Ot 443.9 11/18/2014 GRICELDA JONES, PRADIP Oviedo Ot 707.10 11/18/2014 TAMIKA WHITE DO Ot 250.00 11/18/2014 CHIPRENU DO, TAMIKA A Ot 433.10 11/18/2014 JACKIE JONES, JESSICA Oviedo Ot 250.00 11/18/2014 JACKIE JONES, JESSICA G Ot 272.4 11/18/2014 JACKIE JONES, JESSICA G Ot 401.9 11/18/2014 JACKIE JONES, JESSICA G Ot 414.00 11/18/2014 JACKIE JONES, JESSICA G Ot 433.10 11/18/2014 JACKIE JONES, JESSICA G Ot 459.81 11/18/2014 JACKIE JONES, JESSICA G Ot 250.00 11/18/2014 JACKIE JONES, JESSICA G Ot 272.4 11/18/2014 JACKIE JONES, JESSICA G Ot 401.9 11/18/2014 JACKIE JONES, JESSICA Oviedo Ot 414.00 11/18/2014 JACKIE JONES, JESSICA Oviedo Ot 433.10 11/18/2014 JACKIE JONES, JESSICA Oviedo Ot 459.81 11/18/2014 JESUS JONES, PERLA S Ot 433.10 11/18/2014 JESUS JONES, PERLA S Ot V72.63 11/18/2014 JESUS JONES, PERLA S Ot V72.83 11/18/2014 JESUS JONES, PERLA S Ot V74.8 11/18/2014 GRICELDA JONES, PRADIP Oviedo Ot 250.80 11/18/2014 GRICELDA JONES, PRADIP Oviedo Ot 278.01 11/18/2014 GRICELDA JONES, PRADIP Oviedo Ot 414.01 11/18/2014 GRICELDA JONES, PRADIP Oviedo Ot 440.23 11/18/2014 GRICELDA JONES, PRADIP Oviedo Ot 459.33 11/18/2014 GRICELDA JONES, PRADIP Oviedo Ot 707.12 11/18/2014 GRICELDA JONES, PRADIP Oviedo Ot 785.9 11/18/2014 GRICELDA JONES, PRADIP Oviedo Ot V45.82 11/18/2014 GRICELDA JONES, PRADIP Oviedo Ot 250.80 11/18/2014 GRICELDA JONES, PRADIP Oviedo Ot 414.01 11/18/2014 GRICELDA OJNES, PRADIP Oviedo Ot 440.23 11/18/2014 GRICELDA JONES, PRADIP Oviedo Ot 459.33 11/18/2014 GRICELDA JONES, PRADIP Oviedo Ot 707.12 11/18/2014 PRADIP MADISON MD Ot 785.9 11/18/2014 PRADIP MADISON MD, Ot V45.82 12/03/2014 PRADIP MADISON MD Ot 250.80 DIAB W OTH SPEC MANIFEST, TYPE II OR UNS 12/03/2014 PRADIP MADISON MD Ot 278.01 MORBID OBESITY 12/03/2014 PRADIP MADISON MD Ot 414.01 CORONARY ATHEROSCLEROSIS OF [place] CORON 12/03/2014 PRADIP MADISON MD Ot 440.23 ATHEROSCL [place] ARTER EXTREMITIES W ULC 12/03/2014 PRADIP MADISON MD Ot 457.1 OTHER LYMPHEDEMA 12/03/2014 PRADIP MADISON MD Ot 459.33 CHRONIC VENOUS HYPERTEN W ULCER/INFLAMMA 12/03/2014 PRADIP MADISON MD Ot 707.12 ULCER OF CALF 12/03/2014 PRADIP MADISON MD Ot 785.9 CARDIOVAS SYS SYMP NEC 12/03/2014 PRADIP MADISON MD Ot V45.82 PERCUTANEOUS TRANSLUM CORON ANGIOPLASTY 12/03/2014 GRICELDA JONES, PRADIP Oviedo Ot V85.42 BODY MASS INDEX 45.0-49.9, ADULT 12/08/2014 PRADIP MADISON MD Ot 250.80 12/08/2014 PRADIP MADISON MD Ot 278.01 12/08/2014 GRICELDA JONES, PRADIP Oviedo Ot 414.01 12/08/2014 PRADIP MADISON MD Ot 440.23 12/08/2014 PRADIP MADISON MD Ot 459.33 12/08/2014 PRADIP MADISON MD Ot 707.12 12/08/2014 PRADIP MADISON MD Ot 785.9 12/08/2014 PRADIP MADISON MD Ot V45.82 12/10/2014 PRADIP MADISON MD Ot 443.9 12/10/2014 PRADIP MADISON MD Ot 457.1 12/10/2014 PRADIP MADISON MD Ot 707.12 12/19/2014 Ot 786.05 12/19/2014 Ot 715.37 12/19/2014 Ot 397.0 12/19/2014 Ot 414.00 12/19/2014 Ot 424.0 12/19/2014 Ot 782.3 12/19/2014 Ot 786.09 12/19/2014 SILVA JONES, GE Casper Ot V72.84 12/19/2014 GRICELDA JONES, PRADIP Oviedo Ot 443.9 12/19/2014 GRICELDA JONES, PRADIP Oviedo Ot 707.10 12/19/2014 TAMIKA WHITE DO Ot 250.00 12/19/2014 TAMIKA WHITE DO Ot 433.10 12/19/2014 JACKIE JONES, JESSICA Oviedo Ot 250.00 12/19/2014 JACKIE JONES, JESSICA Ivelisse Ot 272.4 12/19/2014 JACKIE JONES, JESSICA G Ot 401.9 12/19/2014 JACKIE JONES, JESSICA Ivelisse Ot 414.00 12/19/2014 JACKIE JONES, JESSICA G Ot 433.10 12/19/2014 JACKIE JONES, JESSICA Oviedo Ot 459.81 12/19/2014 JACKIE JONES, JESSICA Ivelisse Ot 250.00 12/19/2014 JACKIE JONES, JESSICA G Ot 272.4 12/19/2014 JACKIE JONES, JESSICA Oviedo Ot 401.9 12/19/2014 JACKIE JONES, JESSICA Oviedo Ot 414.00 12/19/2014 JACKIE JONES, JESSICA Oviedo Ot 433.10 12/19/2014 JACKIE JONES, JESSICA Oviedo Ot 459.81 12/19/2014 JESUS JONES, PERLA S Ot 433.10 12/19/2014 JESUS JONES, PERLA S Ot V72.63 12/19/2014 JESUS JONES, PERLA S Ot V72.83 12/19/2014 JESUS JONES, PERLA S Ot V74.8 12/19/2014 GRICELDA JONES, PRADIP Oviedo Ot 250.80 12/19/2014 GRICELDA JONES, PRADIP Oviedo Ot 414.01 12/19/2014 GRICELDA JONES, PRADIP Oviedo Ot 440.23 12/19/2014 GRICELDA JONES, PRADIP Oviedo Ot 459.33 12/19/2014 GRICELDA JONES, PRADIP Oviedo Ot 707.12 12/19/2014 GRICELDA JONES, PRADIP Oviedo Ot 785.9 12/19/2014 GRICELDA JONES, PRADIP Oviedo Ot V45.82 12/19/2014 GRICELDA JONES, PRADIP Oviedo Ot 443.9 12/19/2014 GRICELDA JONES, PRADIP Oviedo Ot 457.1 12/19/2014 GRICELDA JONES, PRADIP Oviedo Ot 707.12 12/19/2014 TAMIKA WHITE DO Ot 786.05 12/19/2014 GRICELDA JONES, PRADIP Oviedo Ot 250.80 12/19/2014 GRICELDA JONES, PRADIP Oviedo Ot 278.01 12/19/2014 GRICELDA JONES, PRADIP Oviedo Ot 414.01 12/19/2014 GRICELDA JONES, PRADIP Oviedo Ot 440.23 12/19/2014 GRICELDA JONES, PRADIP Oviedo Ot 459.33 12/19/2014 GRICELDA JONES, PRADIP Oviedo Ot 707.12 12/19/2014 GRICELDA JONES, PRADIP Oviedo Ot 785.9 12/19/2014 GRICELDA JONES, PRADIP Oviedo Ot V45.82 12/22/2014 [facility], TAMIKA Jill Ot 786.05 12/22/2014 GRICELDA JONES, PRADIP Oviedo Ot 443.9 12/22/2014 GRICELDA JONES, RPADIP Oviedo Ot 457.1 12/22/2014 GRICELDA JONES, PRADIP Oviedo Ot 707.12 12/22/2014 [facility] Ot B95.1 STREPTOCOCCUS, GROUP B, CAUSING DISEASES 12/22/2014 TAMIKA WHITE DO Ot 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 [facility] E11.65 TYPE 2 DIABETES MELLITUS WITH HYPERGLYCE 12/22/2014 TAMIKA WHITE DO Ot E66.01 MORBID (SEVERE) OBESITY DUE TO EXCESS CA 12/22/2014 TAMIKA WHITE DO Ot E86.0 DEHYDRATION 12/22/2014 TAMIKA WHITE DO Ot E87.1 HYPO-OSMOLALITY AND HYPONATREMIA 12/22/2014 TAMIKA WHITE DO Ot E87.5 HYPERKALEMIA 12/22/2014 TAMIKA WHITE DO Ot G62.9 POLYNEUROPATHY, UNSPECIFIED 12/22/2014 TAMIKA WHITE DO Ot I12.9 HYPERTENSIVE CHRONIC KIDNEY DISEASE W ST 12/22/2014 TAMIKA WHITE DO Ot I25.10 ATHSCL HEART DISEASE OF [place] CORONARY 12/22/2014 TAMIKA WHITE DO Ot I25.2 OLD MYOCARDIAL INFARCTION 12/22/2014 TAMIKA WHITE DO Ot 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 12/22/2014 TAMIKA WHITE DO Ot 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 12/22/2014 TAMIKA WHITE DO Ot N17.9 ACUTE KIDNEY FAILURE, UNSPECIFIED 12/22/2014 TAMIKA WHITE DO Ot N18.9 CHRONIC KIDNEY DISEASE, UNSPECIFIED 12/22/2014 TAMIKA WHITE DO Ot N39.0 URINARY TRACT INFECTION, SITE NOT SPECIF 12/22/2014 TAMIKA WHITE DO Ot Z68.43 BODY MASS INDEX (BMI) 50-59.9 , ADULT 12/22/2014 TAMIKA WHITE DO Ot Z79.4 HAND ENGRAVER (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 OF INSULIN 12/22/2014 TAMIKA WHITE DO Ot Z95.5 PRESENCE OF CORONARY ANGIOPLASTY IMPLANT 12/28/2014 GRICELDA JONES, PRADIP Oviedo Ot 250.80 12/28/2014 GRICELDA JONES, PRADIP Oviedo Ot 278.01 12/28/2014 PRADIP MADISON MD Ot 414.01 12/28/2014 PRADIP MADISON MD Ot 440.23 12/28/2014 PRADIP MADISON MD Ot 459.33 12/28/2014 PRADIP MADISON MD Ot 707.12 12/28/2014 PRADIP MADISON MD Ot 785.9 12/28/2014 PRADIP MADISON MD Ot V45.82 12/29/2014 CHRISTOPHER CONTRERAS TAMIKA Melchor Ot 786.05 02/02/2015 CAROL MARTINEZ MD Ot E78.2 02/02/2015 MICHELLE JONES, CAROL Recio Ot I10 02/02/2015 MICHELLE JONES, CAROL Recio Ot I25.10 02/02/2015 MICHELLE JONES, CAROL Recio Ot R06.02 02/05/2015 MICHELLE JONES, CAROL Recio Ot E78.2 02/05/2015 MICHELLE JONES, CAROL Recio Ot I10 02/05/2015 MICHELLE JONES, CAROL Recio Ot I25.10 02/05/2015 MICHELLE JONES, CAROL Recio Ot R06.02 02/24/2015 PRADIP MADISON MD Ot E11.622 02/24/2015 PRADIP MADISON MD Ot G47.33 02/24/2015 PRADIP MADISON MD Ot I87.331 02/24/2015 PRADIP MADISON MD Ot L97.212 02/24/2015 PRADIP MADISON MD Ot M16.9 02/24/2015 PRADIP MADISON MD Ot M17.9 02/24/2015 GRICELDA JONES, PRADIP Oviedo Ot R53.1 02/25/2015 PRASHANTH SPEAR APRN Ot G47.33 OBSTRUCTIVE SLEEP APNEA (ADULT) ( PEDIATR 02/25/2015 PRASHANTH SPEAR PUBLIC HEALTH SERVICE OFFICER Ot G47.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 02/25/2015 GRICELDA JONES, PARDIP Oviedo Ot E11.622 02/25/2015 GRICELDA JONES, PRADIP Oviedo Ot G47.33 02/25/2015 GRICELDA JONES, PRADIP Oviedo Ot I87.331 02/25/2015 GRICELDA JONES, PRADIP Oviedo Ot L97.212 02/25/2015 GRICELDA JONES, PRADIP Oviedo Ot M16.9 02/25/2015 GRICELDA JONES, PRADIP Oviedo Ot M17.9 02/25/2015 GRICELDA JONES, PRADIP Oviedo Ot R53.1 03/08/2015 GRICELDA JONES, PRADIP Oviedo Ot E11.622 TYPE 2 DIABETES MELLITUS WITH OTHER SKIN 03/08/2015 GRICELDA JONES, PRADIP Oviedo Ot G47.33 OBSTRUCTIVE SLEEP APNEA (ADULT) (PEDIATR 03/08/2015 GRICELDA JONES, PRADIP Oviedo Ot 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 03/08/2015 GRICELDA JONES, PRADIP Oviedo Ot L97.212 NON-PRESSURE CHRONIC ULCER OF RIGHT CALF 03/08/2015 GRICELDA JONES, PRADIP Oviedo Ot M16.9 OSTEOARTHRITIS OF HIP, UNSPECIFIED 03/08/2015 GRICELDA JONES, PRADIP Oviedo Ot M17.9 OSTEOARTHRITIS OF KNEE, UNSPECIFIED 03/08/2015 GRICELDA JONES, PRADIP Oviedo Ot R53.1 WEAKNESS 03/09/2015 GRICELDA JONES, PRADIP Oviedo Ot E11.622 03/09/2015 GRICELDA JONES, PRADIP Oviedo Ot G47.33 03/09/2015 GRICELDA JONES, PRADIP Oviedo Ot I87.331 03/09/2015 GRICELDA JONES, PRADIP Oviedo Ot L97.212 03/09/2015 GRICELDA JONES, PRADIP Oviedo Ot M16.9 03/09/2015 GRICELDA JONES, PRADIP Oviedo Ot M17.9 03/09/2015 GRICELDA JONES, PRADIP Oviedo Ot R53.1 03/10/2015 GRICELDA JONES, PRADIP Oviedo Ot 250.80 03/10/2015 GRICELDA JONES, PRADIP Oviedo Ot 327.23 03/10/2015 GRICELDA JONES, PRADIP Oviedo Ot 459.33 03/10/2015 GRICELDA JONES, PRADIP G Ot 707.12 03/10/2015 GRICELDA JONES, PRADIP G Ot 715.35 03/10/2015 GRICELDA JONES, PRADIP G Ot 780.79 03/10/2015 GRICELDA JONES, PRADIP Oviedo Ot E11.622 03/10/2015 GRICELDA JONES, PRADIP Oviedo Ot G47.33 03/10/2015 GRICELDA JONES, PRADIP Oviedo Ot I87.331 03/10/2015 GRICELDA JONSE, PRADIP Oviedo Ot L97.212 03/10/2015 GRICELDA JONES, PRADIP G Ot M16.9 03/10/2015 GRICELDA JONES, PRADIP G Ot M17.9 03/10/2015 GRICELDA JONES, PRADIP G Ot R53.1 05/01/2015 GRICELDA JONES, PRADIP G Ot 250.80 05/01/2015 GRICELDA JONES, PRADIP G Ot 327.23 05/01/2015 GRICELDA JONES, PRADIP Oviedo Ot 459.33 05/01/2015 GRICELDA JONES, PRADIP Oviedo Ot 707.12 05/01/2015 GRICELDA JONES, PRADIP G Ot 715.35 05/01/2015 GRICELDA JONES, PRADIP G Ot 780.79 05/01/2015 GRICELDA JONES, PRADIP G Ot E11.622 05/01/2015 GRICELDA JONES, PRADIP Oviedo Ot G47.33 05/01/2015 GRICELDA JONES, PRADIP Oviedo Ot I87.331 05/01/2015 GRICELDA JONES, PRADIP Oviedo Ot L97.212 05/01/2015 GRICELDA JONES, PRADIP Oviedo Ot M16.9 05/01/2015 GRICELDA JONES, PRADIP Oviedo Ot M17.9 05/01/2015 GRICELDA JONES, PRADIP G Ot R53.1 05/07/2015 GRICELDA JONES, PRADIP G Ot 250.80 05/07/2015 GRICELDA JONES, PRADIP G Ot 327.23 05/07/2015 GRICELDA JONES, PRADIP Oviedo Ot 459.33 05/07/2015 GRICELDA JONES, PRADIP G Ot 707.12 05/07/2015 GRICELDA JONES, PRADIP G Ot 715.35 05/07/2015 GRICELDA JONES, PRADIP Oviedo Ot 780.79 05/07/2015 GRICELDA JONES, PRADIP Oviedo Ot E11.622 05/07/2015 GRICELDA JONES, PRADIP Oviedo Ot G47.33 05/07/2015 GRICELDA JONES, PRADIP Oviedo Ot I87.331 05/07/2015 PRADIP MADISON MD Ot L97.212 05/07/2015 GRICELDA JONES, PRADIP Oviedo Ot M16.9 05/07/2015 GRICELDA JONES, PRADIP Oviedo Ot M17.9 05/07/2015 GRICELDA JONES, PRADIP Oviedo Ot R53.1 05/11/2015 PRADIP MADISON MD Ot E11.622 TYPE 2 DIABETES MELLITUS WITH OTHER SKIN 05/11/2015 GRICELDA JONES, PRADIP Oviedo Ot G47.33 OBSTRUCTIVE SLEEP APNEA (ADULT) (PEDIATR 05/11/2015 GRICELDA JONES, PRADIP Oviedo Ot 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 05/11/2015 GRICELDA JONES, PRADIP Oviedo Ot L97.212 NON-PRESSURE CHRONIC ULCER OF RIGHT CALF 05/11/2015 GRICELDA JONES, PRADIP Oviedo Ot M16.9 OSTEOARTHRITIS OF HIP, UNSPECIFIED 05/11/2015 PRADIP MADISON MD Ot M17.9 OSTEOARTHRITIS OF KNEE, UNSPECIFIED 05/11/2015 GRICELDA JONES, PRADIP Oviedo Ot R53.1 WEAKNESS 05/13/2015 Ot 715.37 05/13/2015 Ot 397.0 05/13/2015 Ot 414.00 05/13/2015 Ot 424.0 05/13/2015 Ot 782.3 05/13/2015 Ot 786.09 05/13/2015 SILVA JONES, GE Casper Ot V72.84 05/13/2015 GRICELDA JONES, PRADIP Oviedo Ot 443.9 05/13/2015 GRICELDA JONES, PRADIP Oviedo Ot 707.10 05/13/2015 TAMIKA WHITE DO Ot 250.00 05/13/2015 TAMIKA WHITE DO Ot 433.10 05/13/2015 JACKIE JONES, JESSICA Oviedo Ot 250.00 05/13/2015 JACKIE JONES, JESSICA Oviedo Ot 272.4 05/13/2015 JACKIE JONES, JESSICA Oviedo Ot 401.9 05/13/2015 JACKIE JONES, JESSICA Oviedo Ot 414.00 05/13/2015 JACKIE JONES, JESSICA Oviedo Ot 433.10 05/13/2015 JACKIE JONES, JESSICA Oviedo Ot 459.81 05/13/2015 JACKIE JONES, JESSICA Oviedo Ot 250.00 05/13/2015 JACKIE JONES, JESSICA Oviedo Ot 272.4 05/13/2015 JACKIE JONES, JESSICA Oviedo Ot 401.9 05/13/2015 JACKIE JONES, JESSICA Oviedo Ot 414.00 05/13/2015 JACKIE JONES, JESSICA Oviedo Ot 433.10 05/13/2015 JACKIE JONES, JESSICA Oviedo Ot 459.81 05/13/2015 JESUS JONES, PERLA S Ot 433.10 05/13/2015 JESUS JONES, PERLA S Ot V72.63 05/13/2015 JESUS JONES, PERLA S Ot V72.83 05/13/2015 JESUS JONES, PERLA S Ot V74.8 05/13/2015 GRICELDA JONES, PRADIP Oviedo Ot 250.80 05/13/2015 GRICELDA JONES, PRADIP Oviedo Ot 414.01 05/13/2015 GRICELDA JONES, PRADIP Oviedo Ot 440.23 05/13/2015 GRICELDA JONES, PRADIP Oviedo Ot 459.33 05/13/2015 GRICELDA JONES, PRADIP Oviedo Ot 707.12 05/13/2015 GRICELDA JONES, PRADIP Oviedo Ot 785.9 05/13/2015 GRICELDA JONES, PRADIP Oviedo Ot V45.82 05/13/2015 GRICELDA JONES, PRADIP Oviedo Ot 443.9 05/13/2015 GRICELDA JONES, PRADIP Oviedo Ot 457.1 05/13/2015 GRICELDA JONES, PRADIP Oviedo Ot 707.12 05/13/2015 TAMIKA WHITE DO Ot 786.05 05/13/2015 MICHELLE JONES, CAROL Recio Ot E78.2 05/13/2015 MICHELLE JONES, CAROL Recio Ot I10 05/13/2015 MICHELLE JONES, CAROL Recio Ot I25.10 05/13/2015 MICHELLE JONES, CAROL Recio Ot R06.02 05/13/2015 GRICELDA JONES, PRADIP Oviedo Ot 250.80 05/13/2015 GRICELDA JONES, PRADIP Oviedo Ot 327.23 05/13/2015 GRICELDA JONES, PRADIP Oviedo Ot 459.33 05/13/2015 GRICELDA JONES, PRADIP Oviedo Ot 707.12 05/13/2015 GRICELDA JONES, PRADIP Oviedo Ot 715.35 05/13/2015 GRICELDA JONES, PRADIP Oviedo Ot 780.79 05/13/2015 GRICELDA JONES, PRADIP Oviedo Ot E11.622 05/13/2015 GRICELDA JONES, PRADIP Oviedo Ot G47.33 05/13/2015 GRICELDA JONES, PRADIP Oviedo Ot I87.331 05/13/2015 GRICELDA JONES, PRADIP Oviedo Ot L97.212 05/13/2015 GRICELDA JONES, PRADIP Oviedo Ot M16.9 05/13/2015 GRICELDA JONES, PRADIP Oviedo Ot M17.9 05/13/2015 GRICELDA JONES, PRADIP Oviedo Ot R53.1 05/16/2015 GELLENDER DO, TAMIKA Melchor Ot E11.621 05/16/2015 GELLENDER DO, TAMIKA Melchor Ot E66.9 05/16/2015 GELLENDER DO, TAMIKA Melchor Ot I25.10 05/16/2015 GELLENDER DO, TAMIKA Melchor Ot I25.2 05/16/2015 GELLENDER DO, TAMIKA Melchor Ot J18.9 05/16/2015 GELLENDER DO, TAMIKA Melchor Ot K21.9 05/16/2015 GELLENDER DO, TAMIKA Melchor Ot L97.219 05/16/2015 GELLENDER DO, TAMIKA Melchor Ot L97.519 05/16/2015 GELLENDER DO, TAMIKA Melchor Ot N28.9 05/16/2015 GELLENDER DO, TAMIKA Melchor Ot R11.10 05/16/2015 GELLENDER DO, TAMIKA Melchor Ot Z68.43 05/16/2015 GELLENDER DO, TAMIKA Melchor Ot Z79.4 05/16/2015 GELLENDER DO, TAMIKA Melchor Ot Z95.5 05/18/2015 GELLENDER DO, TAMIKA Melchor Ot E11.621 05/18/2015 GELLENDER DO, TAMIKA Melchor Ot E66.9 05/18/2015 GELLENDER DO, TAMIKA Melchor Ot I25.10 05/18/2015 GELLENDER DO, TAMIKA Melchor Ot I25.2 05/18/2015 GELLENDER DO, TAMIKA Melchor Ot J18.9 05/18/2015 GELLENDER DO, TAMIKA Melchor Ot K21.9 05/18/2015 GELLENDER DO, TAMIKA Melchor Ot L97.219 05/18/2015 GELLENDER DO, TMAIKA Melchor Ot L97.519 05/18/2015 GELLENDER DO, TAMIKA Melchor Ot N28.9 05/18/2015 GELLENDER DO, TAMIKA Melchor Ot R11.10 05/18/2015 GELLENDER DO, TAMIKA Melchor Ot Z68.43 05/18/2015 GELLENDER DO, TAMIKA A Ot Z79.4 05/18/2015 GELLENDER DO, TAMIKA A Ot Z95.5 05/18/2015 GELLENDER DO, TAMIKA A Ot E11.621 05/18/2015 GELLENDER DO, TAMIKA A Ot E66.9 05/18/2015 GELLENDER DO, TAMIKA Melchor Ot I25.10 05/18/2015 GELLENDER DO, TAMIKA Melchor Ot I25.2 05/18/2015 GELLENDER DO, TAMIKA Melchor Ot J18.9 05/18/2015 GELLENDER DO, TAMIKA A Ot K21.9 05/18/2015 GELLENDER DO, TAMIKA A Ot L97.219 05/18/2015 GELLENDER DO, TAMIKA A Ot L97.519 05/18/2015 GELLENDER DO, TAMIKA Melchor Ot N28.9 05/18/2015 GELLENDER DO, TAMIKA Melchor Ot R11.10 05/18/2015 GELLENDER DO, TAMIKA Melchor Ot Z68.43 05/18/2015 GELLENDER DO, TAMIKA Melchor Ot Z79.4 05/18/2015 GELLENDER DO, TAMIKA Melchor Ot Z95.5 05/19/2015 GELLENDER DO, TAMIKA Melchor Ot E11.621 05/19/2015 GELLENDER DO, TAMIKA A Ot E66.9 05/19/2015 GELLENDER DO, TAMIKA Melchor Ot I25.10 05/19/2015 GELLENDER DO, TAMIKA Melchor Ot I25.2 05/19/2015 GELLENDER DO, TAMIKA Melchor Ot J18.9 05/19/2015 GELLENDER DO, TAMIKA Melchor Ot K21.9 05/19/2015 GELLENDER DO, TAMIKA Melchor Ot L97.219 05/19/2015 GELLENDER DO, TAMIKA Melchor Ot L97.519 05/19/2015 GELLENDER DO, TAMIKA A Ot N28.9 05/19/2015 GELLENDER DO, TAMIKA A Ot R11.10 05/19/2015 GELLENDER DO, TAMIKA Melchor Ot Z68.43 05/19/2015 GELLENDER DO, TAMIKA Melchor Ot Z79.4 05/19/2015 GELLENDER DO, TAMIKA A Ot Z95.5 05/19/2015 GELLENDER DO, TAMIKA Melchor Ot E11.621 05/19/2015 GELLENDER DO, TAMIKA Melchor Ot E66.9 05/19/2015 GELLENDER DO, TAMIKA Melchor Ot I25.10 05/19/2015 GELLENDER DO, TAMIKA A Ot I25.2 05/19/2015 GELLENDER DO, TAMIKA Melchor Ot J18.9 05/19/2015 GELLENDER DO, TAMIKA Melchor Ot K21.9 05/19/2015 GELLENDER DO, TAMIKA Melchor Ot L97.219 05/19/2015 GELLENDER DO, TAMIKA Melchor Ot L97.519 05/19/2015 GELLENDER DO, TAMIKA Melchor Ot N28.9 05/19/2015 GELLENDER DO, TAMIKA Melchor Ot R11.10 05/19/2015 GELLENDER DO, TAMIKA Melchor Ot Z68.43 05/19/2015 GELLENDER DO, TAMIKA Melchor Ot Z79.4 05/19/2015 GELLENDER DO, TAMIKA Melchor Ot Z95.5 05/20/2015 GELLENDER DO, TAMIKA Melchor Ot E11.621 05/20/2015 GELLENDER DO, TAMIKA Melchor Ot E66.9 05/20/2015 GELLENDER DO, TAMIKA Melchor Ot I25.10 05/20/2015 GELLENDER DO, TAMIKA Melchor Ot I25.2 05/20/2015 GELLENDER DO, TAMIKA Melchor Ot J18.9 05/20/2015 GELLENDER DO, TAMIKA Melchor Ot K21.9 05/20/2015 GELLENDER DO, TAMIKA Melchor Ot L97.219 05/20/2015 GELLENDER DO, TAMIKA Melchor Ot L97.519 05/20/2015 GELLENDER DO, TAMIKA Melchor Ot N28.9 05/20/2015 GELLENDER DO, TAMIKA Melchor Ot R11.10 05/20/2015 GELLENDER DO, TAMIKA Melchor Ot Z68.43 05/20/2015 GELLENDER DO, TAMIKA Melchor Ot Z79.4 05/20/2015 GELLENDER DO, TAMIKA A Ot Z95.5 05/21/2015 GELLENDER DO, TAMIKA A Ot E11.621 05/21/2015 GELLENDER DO, TAMIKA A Ot E66.9 05/21/2015 GELLENDER DO, TAMIKA Melchor Ot I25.10 05/21/2015 GELLENDER DO, TAMIKA Melchor Ot I25.2 05/21/2015 GELLENDER DO, TAMIKA Melchor Ot J18.9 05/21/2015 GELLENDER DO, TAMIKA Melchor Ot K21.9 05/21/2015 GELLENDER DO, TAMIKA Melchor Ot L97.219 05/21/2015 GELLENDER DO, TAMIKA Melchor Ot L97.519 05/21/2015 GELLENDER DO, TAMIKA Melchor Ot N28.9 05/21/2015 GELLENDER DO, TAMIKA Melchor Ot R11.10 05/21/2015 GELLENDER DO, TAMIKA Melchor Ot Z68.43 05/21/2015 GELLENDER DO, TAMIKA Melchor Ot Z79.4 05/21/2015 GELLENDER DO, TAMIKA Melchor Ot Z95.5 05/21/2015 GELLENDER DO, TAMIKA Melchor Ot E11.621 05/21/2015 GELLENDER DO, TAMIKA Melchor Ot E66.9 05/21/2015 GELLENDER DO, TAMIKA Melchor Ot I25.10 05/21/2015 GELLENDER DO, TAMIKA Melchor Ot I25.2 05/21/2015 GELLENDER DO, TAMIKA Melchor Ot J18.9 05/21/2015 GELLENDER DO, TAMIKA Melchor Ot K21.9 05/21/2015 GELLENDER DO, TAMIKA Melchor Ot L97.219 05/21/2015 GELLENDER DO, TAMIKA Melchor Ot L97.519 05/21/2015 GELLENDER DO, TAMIKA Melchor Ot N28.9 05/21/2015 GELLENDER DO, TAMIKA Melchor Ot R11.10 05/21/2015 GELLENDER DO, TAMIKA Melchor Ot Z68.43 05/21/2015 GELLENDER DO, TAMIKA Melchor Ot Z79.4 05/21/2015 GELLENDER DO, TAMIKA Melchor Ot Z95.5 05/21/2015 GELLENDER DO, TAMIKA Melchor Ot D64.9 ANEMIA, UNSPECIFIED 05/21/2015 GELLENDER DO, TAMIKA Melchor Ot E11.621 TYPE 2 DIABETES MELLITUS WITH FOOT ULCER 05/21/2015 GELLENDER DO, TAMIKA Melchor Ot E66.9 OBESITY, UNSPECIFIED 05/21/2015 GELLENDER DO, TAMIKA Jill Ot I10 ESSENTIAL (PRIMARY) HYPERTENSION 05/21/2015 GELLENDER DO, TAMIKA Jill Ot I25.10 ATHSCL HEART DISEASE OF [place] CORONARY 05/21/2015 GELLENDER DO, TAMIKA Jill Ot I25.2 OLD MYOCARDIAL INFARCTION 05/21/2015 GELLENDER DO, TAMIKA Jill Ot J18.9 PNEUMONIA, UNSPECIFIED ORGANISM 05/21/2015 GELLENDER DO, TAMIKA Melchor Ot K21.9 GASTRO-ESOPHAGEAL REFLUX DISEASE WITHOUT 05/21/2015 GELLENDER DO, TAMIKA Melchor Ot 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 05/21/2015 GELLENDER DO, TAMIKA Melchor Ot L97.519 NON-PRS CHRONIC ULCER OTH PRT RIGHT FOOT 05/21/2015 GELLENDER DO, TAMIKA Melchor Ot N28.9 DISORDER OF KIDNEY AND URETER, UNSPECIFI 05/21/2015 GELLENDER DO, TAMIKA Jill Ot R11.10 VOMITING, UNSPECIFIED 05/21/2015 GELLENDER DO, TAMIKA Jill Ot Z68.43 BODY MASS INDEX (BMI) 50-59.9 , ADULT 05/21/2015 GELLENDER DO, TAMIKA Melchor Ot Z79.4 ALF (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 OF INSULIN 05/21/2015 GELLENDER DO, TAMIKA Melchor Ot Z95.5 PRESENCE OF CORONARY ANGIOPLASTY IMPLANT 05/26/2015 GELLENDER DO, TAMIKA Melchor Ot E11.9 05/26/2015 GELLENDER DO, TAMIKA Melchor Ot E87.70 05/26/2015 GELLENDER DO, TAMIKA Melchor Ot I25.10 05/26/2015 GELLENDER DO, TAMIKA Melchor Ot I25.2 05/26/2015 GELLENDER DO, TAMIKA Melchor Ot J18.9 05/26/2015 GELLENDER DO, TAMIKA Melchor Ot J81.1 05/26/2015 GELLENDER DO, TAMIKA Melchor Ot K21.9 05/26/2015 GELLENDER DO, TAMIKA Melchor Ot N17.9 05/26/2015 GELLENDER DO, TAMIKA Melchor Ot N18.9 05/26/2015 GELLENDER DO, TAMIKA Meclhor Ot Z79.4 05/26/2015 GELLENDER DO, TAMIKA Melchor Ot Z95.5 05/26/2015 GELLENDER DO, TAMIKA Melchor Ot E11.9 05/26/2015 GELLENDER DO, TAMIKA Melchor Ot E87.70 05/26/2015 GELLENDER DO, TAMIKA Melchor Ot I25.10 05/26/2015 GELLENDER DO, TAMIKA Melchor Ot I25.2 05/26/2015 GELLENDER DO, TAMIKA Melchor Ot J18.9 05/26/2015 GELLENDER DO, TAMIKA Melchor Ot J81.1 05/26/2015 GELLENDER DO, TAMIKA A Ot K21.9 05/26/2015 GELLENDER DO, TAMIKA Melchor Ot N17.9 05/26/2015 GELLENDER DO, TAMIKA A Ot N18.9 05/26/2015 GELLENDER DO, TAMIKA Melchor Ot Z79.4 05/26/2015 GELLENDER DO, TAMIKA Melchor Ot Z95.5 05/26/2015 GELLENDER DO, TAMIKA Melchor Ot E11.9 05/26/2015 GELLENDER DO, TAMIKA Melchor Ot E87.70 05/26/2015 GELLENDER DO, TAMIKA A Ot I25.10 05/26/2015 GELLENDER DO, TAMIKA A Ot I25.2 05/26/2015 GELLENDER DO, TAMIKA Melchor Ot J18.9 05/26/2015 GELLENDER DO, TAMIKA Melchor Ot J81.1 05/26/2015 GELLENDER DO, TAMIKA Melchor Ot K21.9 05/26/2015 GELLENDER DO, TAMIKA Melchor Ot N17.9 05/26/2015 GELLENDER DO, TAMIKA A Ot N18.9 05/26/2015 GELLENDER DO, TAMIKA Melchor Ot Z79.4 05/26/2015 GELLENDER DO, TAMIKA Melchor Ot Z95.5 05/26/2015 GELLENDER DO, TAMIKA Melchor Ot E11.9 05/26/2015 GELLENDER DO, TAMIKA Melchor Ot E87.70 05/26/2015 GELLENDER DO, TAMIKA Melchor Ot I25.10 05/26/2015 GELLENDER DO, TAMIKA Melchor Ot I25.2 05/26/2015 GELLENDER DO, TAMIKA Melchor Ot J18.9 05/26/2015 GELLENDER DO, TAMIKA Melchor Ot J81.1 05/26/2015 GELLENDER DO, TAMIKA Melchor Ot K21.9 05/26/2015 GELLENDER DO, TAMIKA A Ot N17.9 05/26/2015 GELLENDER DO, TAMIKA A Ot N18.9 05/26/2015 GELLENDER DO, TAMIKA Melchor Ot Z79.4 05/26/2015 GELLENDER DO, TAMIKA Melchor Ot Z95.5 05/27/2015 GELLENDER DO, TAMIKA Melchor Ot E11.9 05/27/2015 GELLENDER DO, TAMIKA Melchor Ot E87.70 05/27/2015 GELLENDER DO, TAMIKA Melchor Ot I25.10 05/27/2015 GELLENDER DO, TAMIKA Melchor Ot I25.2 05/27/2015 GELLENDER DO, TAMIKA Melchor Ot J18.9 05/27/2015 GELLENDER DO, TAMIKA Melchor Ot J81.1 05/27/2015 GELLENDER DO, TAMIKA Melchor Ot K21.9 05/27/2015 GELLENDER DO, TAMIKA Melchor Ot N17.9 05/27/2015 GELLENDER DO, TAMIKA Melchor Ot N18.9 05/27/2015 GELLENDER DO, TAMIKA Melchor Ot Z79.4 05/27/2015 GELLENDER DO, TAMIKA Melchor Ot Z95.5 05/27/2015 GELLENDER DO, TAMIKA Melchor Ot E11.9 05/27/2015 GELLENDER DO, TAMIKA Melchor Ot E87.70 05/27/2015 GELLENDER DO, TAMIKA Melchor Ot I25.10 05/27/2015 GELLENDER DO, TAMIKA Melchor Ot I25.2 05/27/2015 GELLENDER DO, TAMIKA Melchor Ot J18.9 05/27/2015 GELLENDER DO, TAMIKA Melchor Ot J81.1 05/27/2015 GELLENDER DO, TAMIKA Melchor Ot K21.9 05/27/2015 GELLENDER DO, TAMIKA Melchor Ot N17.9 05/27/2015 GELLENDER DO, TAMIKA Melchor Ot N18.9 05/27/2015 GELLENDER DO, TAMIKA Melchor Ot Z79.4 05/27/2015 GELLENDER DO, TAMIKA Melchor Ot Z95.5 05/27/2015 GELLENDER DO, TAMIKA Melchor Ot E11.9 05/27/2015 GELLENDER DO, TAMIKA Melchor Ot E87.70 05/27/2015 GELLENDER DO, TAMIKA Melchor Ot I25.10 05/27/2015 GELLENDER DO, TAMIKA Melchor Ot I25.2 05/27/2015 GELLENDER DO, TAMIKA Melchor Ot J18.9 05/27/2015 GELLENDER DO, TAMIKA Melchor Ot J81.1 05/27/2015 GELLENDER DO, TAMIKA Melchor Ot K21.9 05/27/2015 GELLENDER DO, TAMIKA Melchor Ot N17.9 05/27/2015 GELLENDER DO, TAMIKA Melchor Ot N18.9 05/27/2015 GELLENDER DO, TAMIKA Jill Ot Z79.4 05/27/2015 GELLENDER DO, TAMIKA Melchor Ot Z95.5 05/28/2015 GELLENDER DO, TAMIKA Melchor Ot E11.9 05/28/2015 GELLENDER DO, TAMIKA Jill Ot E87.70 05/28/2015 GELLENDER DO, TAMIKA Jill Ot I25.10 05/28/2015 GELLENDER DO, TAMIKA Jill Ot I25.2 05/28/2015 GELLENDER DO, TAMIKA Jill Ot J18.9 05/28/2015 GELLENDER DO, TAMIKA Melchor Ot J81.1 05/28/2015 GELLENDER DO, TAMIKA Jill Ot K21.9 05/28/2015 GELLENDER DO, TAMIKA Jill Ot N17.9 05/28/2015 GELLENDER DO, TAMIKA Jill Ot N18.9 05/28/2015 GELLENDER DO, TAMIKA Melchor Ot Z79.4 05/28/2015 GELLENDER DO, TAMIKA Jill Ot Z95.5 05/28/2015 GELLENDER DO, TAMIKA Melchor Ot D64.9 ANEMIA, UNSPECIFIED 05/28/2015 GELLENDER DO, TAMIKA Melchor Ot E11.9 TYPE 2 DIABETES MELLITUS WITHOUT COMPLIC 05/28/2015 GELLENDER DO, TAMIKA Melchor Ot E66.9 OBESITY, UNSPECIFIED 05/28/2015 GELLENDER DO, TAMIKA Melchor Ot E83.42 HYPOMAGNESEMIA 05/28/2015 GELLENDER DO, TAMIKA Jill Ot E87.70 05/28/2015 GELLENDER DO, TAMIKA Melchor Ot G47.33 OBSTRUCTIVE SLEEP APNEA (ADULT) ( PEDIATR 05/28/2015 GELLENDER DO, TAMIKA Melchor Ot I25.10 ATHSCL HEART DISEASE OF [place] CORONARY 05/28/2015 GELLENDER DO, TAMIKA Melchor Ot I25.2 OLD MYOCARDIAL INFARCTION 05/28/2015 GELLENDER DO, TAMIKA Melchor Ot I48.92 UNSPECIFIED ATRIAL FLUTTER 05/28/2015 GELLENDER DO, TAMIKA Melchor Ot I50.20 05/28/2015 GELLENDER DO, TAMIKA Melchor Ot I50.9 HEART FAILURE, UNSPECIFIED 05/28/2015 GELLENDER DO, TAMIKA Melchor Ot I87.2 VENOUS INSUFFICIENCY (CHRONIC) ( PERIPHER 05/28/2015 GELLENDER DO, TAMIKA Melchor Ot I95.9 HYPOTENSION, UNSPECIFIED 05/28/2015 GELLENDER DO, TAMIKA Melchor Ot J18.9 PNEUMONIA, UNSPECIFIED ORGANISM 05/28/2015 GELLENDER DO, TAMIKA Melchor Ot J44.1 CHRONIC OBSTRUCTIVE PULMONARY DISEASE W 05/28/2015 GELLENDER DO, TAMIKA Melchor Ot J81.1 05/28/2015 GELLENDER DO, TAMIKA Melchor Ot J96.10 CHRONIC RESPIRATORY FAILURE, UNSP W HYPO 05/28/2015 GELLENDER DO, TAMIKA Melchor Ot K21.9 GASTRO-ESOPHAGEAL REFLUX DISEASE WITHOUT 05/28/2015 GELLENDER DO, TAMIKA Melchor Ot 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 05/28/2015 GELLENDER DO, TAMIKA Melchor Ot N17.9 05/28/2015 GELLENDER DO, TAMIKA Melchor Ot N18.9 CHRONIC KIDNEY DISEASE, UNSPECIFIED 05/28/2015 GELLENDER DO, TAMIKA Melchor Ot R00.0 TACHYCARDIA, UNSPECIFIED 05/28/2015 GELLENDER DO, TAMIKA Melchor Ot R19.7 DIARRHEA, UNSPECIFIED 05/28/2015 GELLENDER DO, TAMIKA Melchor Ot Z68.43 BODY MASS INDEX (BMI) 50-59.9 , ADULT 05/28/2015 GELLENDER DO, TAMIKA Melchor Ot Z79.4 ALF (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 OF INSULIN 05/28/2015 GELLENDER DO, TAMIKA Melchor Ot Z95.5 PRESENCE OF CORONARY ANGIOPLASTY IMPLANT 05/28/2015 Ot 715.37 05/28/2015 Ot 397.0 05/28/2015 Ot 414.00 05/28/2015 Ot 424.0 05/28/2015 Ot 782.3 05/28/2015 Ot 786.09 05/28/2015 SILVA JONES, GE Casper Ot V72.84 05/28/2015 GRICELDA JONES, PRADIP Oviedo Ot 443.9 05/28/2015 GRICELDA JONES, PRADIP Oviedo Ot 707.10 05/28/2015 GELLENDER DO, TAMIKA Melchor Ot 250.00 05/28/2015 GELLENDER DO, TAMIKA Melchor Ot 433.10 05/28/2015 JACKIE JONES, JESSICA Oviedo Ot 250.00 05/28/2015 JACKIE JONES, JESSICA Oviedo Ot 272.4 05/28/2015 JACKIE JONES, JESSICA Oviedo Ot 401.9 05/28/2015 JACKIE JONES, JESSICA Oviedo Ot 414.00 05/28/2015 JACKIE JONES, JESSICA Oviedo Ot 433.10 05/28/2015 JACKIE JONES, JESSICA Oviedo Ot 459.81 05/28/2015 JACKIE JONES, JESSICA Oviedo Ot 250.00 05/28/2015 JACKIE JONES, JESSICA Ivelisse Ot 272.4 05/28/2015 JACKIE JONES, JESSICA G Ot 401.9 05/28/2015 JACKIE JONES, JESSICA G Ot 414.00 05/28/2015 JACKIE JONES, JESSICA G Ot 433.10 05/28/2015 JACKIE JONES, JESSICA Oviedo Ot 459.81 05/28/2015 JESUS JONES, PERLA S Ot 433.10 05/28/2015 JESUS JONES, PERLA S Ot V72.63 05/28/2015 JESUS JONES, PERLA S Ot V72.83 05/28/2015 JESUS JONES, PERLA S Ot V74.8 05/28/2015 GRICELDA JONES, PRADIP Oviedo Ot 250.80 05/28/2015 GRICELDA JONES, PRADIP Oviedo Ot 414.01 05/28/2015 GRICELDA JONES, PRADIP Oviedo Ot 440.23 05/28/2015 GRICELDA JONES, PRADIP Oviedo Ot 459.33 05/28/2015 GRICELDA JONES, PRADIP Oviedo Ot 707.12 05/28/2015 GRICELDA JONES, PRADIP Oviedo Ot 785.9 05/28/2015 GRICELDA JONES, PRADIP Oviedo Ot V45.82 05/28/2015 GRICELDA JONES, PRADIP Oviedo Ot 443.9 05/28/2015 GRICELDA JONES, PRADIP Oviedo Ot 457.1 05/28/2015 GRICELDA OJNES, PRADIP Oviedo Ot 707.12 05/28/2015 TAMIKA WHITE DO A Ot 786.05 05/28/2015 MICHELLE JONES, CAROL Recio Ot E78.2 05/28/2015 MICHELLE JONES, CAROL Recio Ot I10 05/28/2015 MICHELLE JONES, CAROL Recio Ot I25.10 05/28/2015 MICHELLE JONES, CAROL Recio Ot R06.02 05/28/2015 GRICELDA JONES, PRADIP Oviedo Ot 250.80 05/28/2015 GRICELDA JONES, PRADIP Oviedo Ot 327.23 05/28/2015 GRICELDA JONES, PRADIP Oviedo Ot 459.33 05/28/2015 GRICELDA JONES, PRADIP Oviedo Ot 707.12 05/28/2015 GRICELDA JONES, PRADIP Oviedo Ot 715.35 05/28/2015 GRICELDA JONES, PRADIP Oviedo Ot 780.79 05/28/2015 GRICELDA JONES, PRADIP Oviedo Ot E11.622 05/28/2015 GRICELDA JONES, PRADIP Oviedo Ot G47.33 05/28/2015 GRICELDA JONES, PRADIP Oviedo Ot I87.331 05/28/2015 GRICELDA JONES, PRADIP Oviedo Ot L97.212 05/28/2015 GRICELDA JONES, PRADIP Oviedo Ot M16.9 05/28/2015 GRICELDA JONES, PRADIP Oviedo Ot M17.9 05/28/2015 GRICELDA JONES, PRADIP Oviedo Ot R53.1 06/10/2015 AIDAN JONES, MARÍA E Ot D64.9 06/10/2015 AIDAN JONES, MARÍA E Ot E11.9 06/10/2015 AIDAN JONES, MARÍA E Ot E66.9 06/10/2015 AIDAN JONES, MARÍA E Ot G47.33 06/10/2015 AIDAN JONES, MARÍA E Ot H91.10 06/10/2015 AIDAN JONES, MARÍA E Ot I25.10 06/10/2015 AIDAN JONES, MARÍA E Ot I25.2 06/10/2015 AIDAN JONES, MARÍA E Ot I48.91 06/10/2015 AIDAN JONES, MARÍA E Ot I50.9 06/10/2015 AIDAN JONES, MARÍA E Ot I87.2 06/10/2015 AIDAN JONES, MARÍA E Ot J18.9 06/10/2015 AIDAN JONES, MARÍA E Ot K21.9 06/10/2015 AIDAN JONES, MARÍA E Ot L97.219 06/10/2015 AIDAN JONES, MARÍA E Ot M19.90 06/10/2015 AIDAN JONES, MARÍA E Ot N18.9 06/10/2015 AIDAN JONES, MARÍA E Ot R32 06/10/2015 AIDAN JONES, MARÍA E Ot Z68.43 06/10/2015 AIDAN JONES, MARÍA E Ot Z79.4 06/10/2015 AIDAN JONES, MARÍA E Ot Z95.5 06/11/2015 AIDAN JONES, MARÍA E Ot D64.9 06/11/2015 AIDAN JONES, MARÍA E Ot E11.9 06/11/2015 AIDAN JONES, MARÍA E Ot E66.9 06/11/2015 AIDAN JONES, MARÍA E Ot G47.33 06/11/2015 AIDAN JONES, MARÍA E Ot H91.10 06/11/2015 BERMUDEZ MD, MARÍA E Ot I25.10 06/11/2015 AIDAN JONES MARÍA E Ot I25.2 06/11/2015 AIDAN JONES MARÍA E Ot I48.91 06/11/2015 AIDAN JONES MARÍA E Ot I50.9 06/11/2015 AIDAN JONES MARÍA E Ot I87.2 06/11/2015 AIDAN JONES MARÍA E Ot J18.9 06/11/2015 AIDAN JONES MARÍA E Ot K21.9 06/11/2015 AIDAN JONES MARÍA E Ot L97.219 06/11/2015 AIDAN JONES MARÍA E Ot M19.90 06/11/2015 AIDAN JONES MARÍA E Ot N18.9 06/11/2015 AIDAN JONES MARÍA E Ot R32 06/11/2015 AIDAN JONES MARÍA E Ot Z68.43 06/11/2015 AIDAN JONES MARÍA E Ot Z79.4 06/11/2015 AIDAN JONES MARÍA E Ot Z95.5 06/11/2015 AIDAN JONES MARÍA E Ot D64.9 ANEMIA, UNSPECIFIED 06/11/2015 AIDAN JONES, MARÍA E Ot E11.9 TYPE 2 DIABETES MELLITUS WITHOUT COMPLIC 06/11/2015 AIDAN JONES MARÍA E Ot E66.9 OBESITY, UNSPECIFIED 06/11/2015 AIDAN JONES MARÍA E Ot G47.33 OBSTRUCTIVE SLEEP APNEA (ADULT) (PEDIATR 06/11/2015 AIDAN JONES, MARÍA E Ot H91.10 PRESBYCUSIS, UNSPECIFIED EAR 06/11/2015 AIDAN JONES MARÍA E Ot I25.10 ATHSCL HEART DISEASE OF [place] CORONARY 06/11/2015 AIDAN JONES MARÍA E Ot I25.2 OLD MYOCARDIAL INFARCTION 06/11/2015 AIDAN JONES MARÍA E Ot I48.91 UNSPECIFIED ATRIAL FIBRILLATION 06/11/2015 AIDAN JONES MARÍA E Ot I50.9 HEART FAILURE, UNSPECIFIED 06/11/2015 AIDAN JONES MARÍA E Ot I87.2 VENOUS INSUFFICIENCY (CHRONIC) (PERIPHER 06/11/2015 AIDAN JONES MARÍA E Ot I95.9 HYPOTENSION, UNSPECIFIED 06/11/2015 AIDAN JONES MARÍA E Ot J18.9 PNEUMONIA, UNSPECIFIED ORGANISM 06/11/2015 AIDAN JONES MARÍA E Ot K21.9 GASTRO-ESOPHAGEAL REFLUX DISEASE WITHOUT 06/11/2015 MARÍA BERMUDEZ MD Ot L89.612 PRESSURE ULCER OF RIGHT HEEL, STAGE 2 06/11/2015 MARÍA BERMUDEZ MD Ot 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 06/11/2015 MARÍA BERMUDEZ MD Ot M19.90 UNSPECIFIED OSTEOARTHRITIS, UNSPECIFIED 06/11/2015 MARÍA BERMUDEZ MD Ot N18.9 CHRONIC KIDNEY DISEASE, UNSPECIFIED 06/11/2015 MARÍA BERMUDEZ MD Ot R00.1 BRADYCARDIA, UNSPECIFIED 06/11/2015 MARÍA BERMUDEZ MD Ot R32 UNSPECIFIED URINARY INCONTINENCE 06/11/2015 MARÍA EBRMUDEZ MD Ot Z68.43 BODY MASS INDEX (BMI) 50-59.9 , ADULT 06/11/2015 MARÍA BERMUDEZ MD Ot Z79.4 ALF (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 OF INSULIN 06/11/2015 MARÍA BERMUDEZ MD Ot Z95.5 PRESENCE OF CORONARY ANGIOPLASTY IMPLANT 06/12/2015 GELLENDER DO, TAMIKA Melchor Ot D63.8 06/12/2015 GELLENDER DO, TAMIKA A Ot E11.9 06/12/2015 GELLENDER DO, TAMIKA A Ot E66.9 06/12/2015 GELLENDER DO, TAMIKA A Ot E78.5 06/12/2015 GELLENDER DO, TAMIKA A Ot E87.70 06/12/2015 GELLENDER DO, TAMIKA A Ot I12.9 06/12/2015 GELLENDER DO, TAMIKA A Ot I25.10 06/12/2015 GELLENDER DO, TAMIKA A Ot I48.92 06/12/2015 GELLENDER DO, TAMIKA A Ot I49.5 06/12/2015 GELLENDER DO, TAMIKA A Ot K21.9 06/12/2015 GELLENDER DO, TAMIKA A Ot L89.612 06/12/2015 GELLENDER DO, TAMIKA A Ot N17.9 06/12/2015 GELLENDER DO, TAMIKA A Ot N18.9 06/12/2015 GELLENDER DO, TAMIKA A Ot R53.81 06/12/2015 GELLENDER DO, TAMIKA A Ot Z68.43 06/12/2015 GELLENDER DO, TAMIKA A Ot Z91.81 06/12/2015 GELLENDER DO, TAMIKA Melchor Ot Z95.5 06/13/2015 GELLENDER DO, TAMIKA Melchor Ot D63.8 06/13/2015 GELLENDER DO, TAMIKA A Ot E11.9 06/13/2015 GELLENDER DO, TAMIKA A Ot E66.9 06/13/2015 GELLENDER DO, TAMIKA A Ot E78.5 06/13/2015 GELLENDER DO, TAMIKA Melchor Ot E87.70 06/13/2015 GELLENDER DO, TAMIKA A Ot I12.9 06/13/2015 GELLENDER DO, TAMIKA A Ot I25.10 06/13/2015 GELLENDER DO, TAMIKA A Ot I48.92 06/13/2015 GELLENDER DO, TAMIKA A Ot I49.5 06/13/2015 GELLENDER DO, TAMIKA A Ot K21.9 06/13/2015 GELLENDER DO, TAMIKA Melchor Ot L89.612 06/13/2015 GELLENDER DO, TAMIKA Melchor Ot N17.9 06/13/2015 GELLENDER DO, TAMIKA A Ot N18.9 06/13/2015 GELLENDER DO, TAMIKA Melchor Ot R53.81 06/13/2015 GELLENDER DO, TAMIKA Melchor Ot Z68.43 06/13/2015 GELLENDER DO, TAMIKA A Ot Z91.81 06/13/2015 GELLENDER DO, TAMIKA Melchor Ot Z95.5 06/13/2015 GELLENDER DO, TAMIKA Melchor Ot D63.8 06/13/2015 GELLENDER DO, TAMIKA Melchor Ot E11.9 06/13/2015 GELLENDER DO, TAMIKA A Ot E66.9 06/13/2015 GELLENDER DO, TAMIKA A Ot E78.5 06/13/2015 GELLENDER DO, TAMIKA A Ot E87.70 06/13/2015 GELLENDER DO, TAMIKA A Ot I12.9 06/13/2015 GELLENDER DO, TAMIKA A Ot I25.10 06/13/2015 GELLENDER DO, TAMIKA A Ot I48.92 06/13/2015 GELLENDER DO, TAMIKA A Ot I49.5 06/13/2015 GELLENDER DO, TAMIKA A Ot K21.9 06/13/2015 GELLENDER DO, TAMIKA Melchor Ot L89.612 06/13/2015 GELLENDER DO, TAMIKA A Ot N17.9 06/13/2015 GELLENDER DO, TAMIKA A Ot N18.9 06/13/2015 GELLENDER DO, TAMIKA A Ot R53.81 06/13/2015 GELLENDER DO, TAMIKA A Ot Z68.43 06/13/2015 GELLENDER DO, TAMIKA A Ot Z91.81 06/13/2015 GELLENDER DO, TAMIKA A Ot Z95.5 06/14/2015 GELLENDER DO, TAMIKA A Ot D63.8 06/14/2015 GELLENDER DO, TAMIKA A Ot E11.9 06/14/2015 GELLENDER DO, TAMIKA A Ot E66.9 06/14/2015 GELLENDER DO, TAMIKA A Ot E78.5 06/14/2015 GELLENDER DO, TAMIKA A Ot E87.70 06/14/2015 GELLENDER DO, TAMIKA A Ot I12.9 06/14/2015 GELLENDER DO, TAMIKA A Ot I25.10 06/14/2015 GELLENDER DO, TAMIKA A Ot I48.92 06/14/2015 GELLENDER DO, TAMIKA A Ot I49.5 06/14/2015 GELLENDER DO, TAMIKA A Ot K21.9 06/14/2015 GELLENDER DO, TAMIKA A Ot L89.612 06/14/2015 GELLENDER DO, TAMIKA A Ot N17.9 06/14/2015 GELLENDER DO, TAMIKA A Ot N18.9 06/14/2015 GELLENDER DO, TAMIKA A Ot R53.81 06/14/2015 GELLENDER DO, TAMIKA A Ot Z68.43 06/14/2015 GELLENDER DO, TAMIKA A Ot Z91.81 06/14/2015 GELLENDER DO, TAMIKA A Ot Z95.5 06/15/2015 GELLENDER DO, TAMIKA A Ot D63.8 06/15/2015 GELLENDER DO, TAMIKA A Ot E11.9 06/15/2015 GELLENDER DO, TAMIKA A Ot E66.9 06/15/2015 GELLENDER DO, TAMIKA A Ot E78.5 06/15/2015 GELLENDER DO, TAMIKA A Ot E87.70 06/15/2015 GELLENDER DO, TAMKIA A Ot I12.9 06/15/2015 GELLENDER DO, TAMIKA A Ot I25.10 06/15/2015 GELLENDER DO, TAMIKA A Ot I48.92 06/15/2015 GELLENDER DO, TAMIKA A Ot I49.5 06/15/2015 GELLENDER DO, TAMIKA Melchor Ot K21.9 06/15/2015 GELLENDER DO, TAMIKA Melchor Ot L89.612 06/15/2015 GELLENDER DO, TAMIKA Melchor Ot N17.9 06/15/2015 GELLENDER DO, TAMIKA Melchor Ot N18.9 06/15/2015 GELLENDER DO, TAMIKA Melchor Ot R53.81 06/15/2015 GELLENDER DO, TAMIKA Melchor Ot Z68.43 06/15/2015 GELLENDER DO, TAMIKA Melchor Ot Z91.81 06/15/2015 GELLENDER DO, TAMIKA Melchor Ot Z95.5 06/16/2015 GELLENDER DO, TAMIKA Melchor Ot B96.20 06/16/2015 GELLENDER DO, TAMIKA Melchor Ot D63.8 06/16/2015 GELLENDER DO, TAMIKA Melchor Ot E11.9 06/16/2015 GELLENDER DO, TAMIKA Melchor Ot E66.9 06/16/2015 GELLENDER DO, TAMIKA Melchor Ot E78.5 06/16/2015 GELLENDER DO, TAMIKA Melchor Ot E87.70 06/16/2015 GELLENDER DO, TAMIKA Melchor Ot I12.9 06/16/2015 GELLENDER DO, TAMIKA Melchor Ot I25.10 06/16/2015 GELLENDER DO, TAMIKA Melchor Ot I48.92 06/16/2015 GELLENDER DO, TAMIKA Melchor Ot I49.5 06/16/2015 GELLENDER DO, TAMIKA Melchor Ot J44.9 06/16/2015 GELLENDER DO, TAMIKA Melchor Ot K21.9 06/16/2015 GELLENDER DO, TAMIKA Melchor Ot L89.619 06/16/2015 GELLENDER DO, TAMIKA Melchor Ot L97.819 06/16/2015 GELLENDER DO, TAMIKA Melchor Ot N17.9 06/16/2015 GELLENDER DO, TAMIKA A Ot N18.9 06/16/2015 GELLENDER DO, TAMIKA Melchor Ot N39.0 06/16/2015 GELLENDER DO, TAMIKA Melchor Ot R53.81 06/16/2015 GELLENDER DO, TAMIKA Melchor Ot Z68.43 06/16/2015 GELLENDER DO, TAMIKA Melchor Ot Z79.4 06/16/2015 GELLENDER DO, TAMIKA Melchor Ot Z91.81 06/16/2015 GELLENDER DO, TAMIKA Melchor Ot Z95.5 06/17/2015 GELLENDER DO, TAMKIA Melchor Ot B96.20 06/17/2015 GELLENDER DO, TAMIKA Melchor Ot D63.8 06/17/2015 GELLENDER DO, TAMIKA Melchor Ot E11.9 06/17/2015 GELLENDER DO, TAMIKA Melchor Ot E66.9 06/17/2015 GELLENDER DO, TAMIKA Melchor Ot E78.5 06/17/2015 GELLENDER DO, TAMIKA Melchor Ot E87.70 06/17/2015 GELLENDER DO, TAMIKA Melchor Ot I12.9 06/17/2015 GELLENDER DO, TAMIKA Melchor Ot I25.10 06/17/2015 GELLENDER DO, TAMIKA Melchor Ot I48.92 06/17/2015 GELLENDER DO, TAMIKA Melchor Ot I49.5 06/17/2015 GELLENDER DO, TAMIKA Melchor Ot J44.9 06/17/2015 GELLENDER DO, TAMIKA Melchor Ot K21.9 06/17/2015 GELLENDER DO, TAMIKA Melchor Ot L89.619 06/17/2015 GELLENDER DO, TAMIKA Melchor Ot L97.819 06/17/2015 GELLENDER DO, TAMIKA Melchor Ot N17.9 06/17/2015 GELLENDER DO, TAMIKA Melchor Ot N18.9 06/17/2015 GELLENDER DO, TAMIKA Melchor Ot N39.0 06/17/2015 GELLENDER DO, TAMIKA Melchor Ot R53.81 06/17/2015 GELLENDER DO, TAMIKA Melchor Ot Z68.43 06/17/2015 GELLENDER DO, TAMIKA Melchor Ot Z79.4 06/17/2015 GELLENDER DO, TAMIKA Melchor Ot Z91.81 06/17/2015 GELLENDER DO, TAMIKA Melchor Ot Z95.5 06/17/2015 GELLENDER DO, TAMIKA Melchor Ot B96.20 UNSP ESCHERICHIA COLI THE CAUSE OF DI 06/17/2015 GELLENDER DO, TAMIKA Melchor Ot D63.8 ANEMIA IN OTHER CHRONIC DISEASES CLASSIF 06/17/2015 GELLENDER DO, TAMIKA Melchor Ot 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 06/17/2015 GELLENDER DO, TAMIKA Melchor Ot E66.9 OBESITY, UNSPECIFIED 06/17/2015 GELLENDER DO, TAMIKA Melchor Ot E78.5 HYPERLIPIDEMIA, UNSPECIFIED 06/17/2015 GELLENDER DO, TAMIKA Melchor Ot E87.70 FLUID OVERLOAD, UNSPECIFIED 06/17/2015 DIEGOLENDER , TAMIKA Melchor Ot I12.9 HYPERTENSIVE CHRONIC KIDNEY DISEASE W ST 06/17/2015 GELLENDER DO, TAMIKA Melchor Ot I25.10 ATHSCL HEART DISEASE OF [place] CORONARY 06/17/2015 CHIPDER DO, TAMIKA Melchor Ot I48.92 UNSPECIFIED ATRIAL FLUTTER 06/17/2015 GELLENDER DO, TAMIKA Melchor Ot I49.5 SICK SINUS SYNDROME 06/17/2015 GELLENDER DO, TAMIKA Melchor Ot J44.9 CHRONIC OBSTRUCTIVE PULMONARY DISEASE , U 06/17/2015 CHIPDER , TAMIKA Melchor Ot K21.9 GASTRO-ESOPHAGEAL REFLUX DISEASE WITHOUT 06/17/2015 GELLENDER DO, TAMIKA Melchor Ot L89.619 PRESSURE ULCER OF RIGHT HEEL, UNSPECIFIE 06/17/2015 CHIPDER TAMIKA Ot L97.819 NON-PRESSURE CHRONIC ULCER OTH PRT R LOW 06/17/2015 CHRISTOPHER CONTRERASTAMIKA Ot N17.9 ACUTE KIDNEY FAILURE, UNSPECIFIED 06/17/2015 GELLENDER DO, TAMIKA Melchor Ot N18.9 CHRONIC KIDNEY DISEASE, UNSPECIFIED 06/17/2015 DIEGOLENDER DO, TAMIKA Melchor Ot N39.0 URINARY TRACT INFECTION, SITE NOT SPECIF 06/17/2015 CHIPDER , TAMIKA Melchor Ot R53.81 OTHER MALAISE 06/17/2015 CHRISTOPHER CONTRERASTAMIKA Ot Z68.41 BODY MASS INDEX (BMI) 40.0-44.9, ADULT 06/17/2015 CHRISTOPHER CONTRERASTAMIKA Ot Z79.4 HAND ENGRAVER (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 OF INSULIN 06/17/2015 CHIPDER TAMIKA Ot Z91.81 HISTORY OF FALLING 06/17/2015 CHRISTOPHER CONTRERASTAMIKA Ot Z95.5 PRESENCE OF CORONARY ANGIOPLASTY IMPLANT 07/01/2015 GRICELDA JONES, PRADIP Oviedo Ot E11.622 TYPE 2 DIABETES MELLITUS WITH OTHER SKIN 07/01/2015 PRADIP MADISON MD Ot E66.01 MORBID (SEVERE) OBESITY DUE TO EXCESS CA 07/01/2015 PRADIP MADISON MD Ot I50.9 HEART FAILURE, UNSPECIFIED 07/01/2015 PRADIP MADISON MD Ot 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 07/01/2015 PRADIP MADISON MD Ot 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 07/01/2015 PRADIP MADISON MD, Ot 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, STAGE 2 07/01/2015 PRADIP MADISON MD, Ot L97.212 NON-PRESSURE CHRONIC ULCER OF RIGHT CALF 07/27/2015 PRADIP MADISON MD, Ot E11.622 TYPE 2 DIABETES MELLITUS WITH OTHER SKIN 07/27/2015 PRADIP MADISON MD, Ot E66.01 MORBID (SEVERE) OBESITY DUE TO EXCESS CA 07/27/2015 PRADIP MADISON MD, Ot I50.9 HEART FAILURE, UNSPECIFIED 07/27/2015 PRADIP MADISON MD, Ot 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 07/27/2015 PRADIP MADISON MD, Ot 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 07/27/2015 PRADIP MADISON MD, Ot 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, STAGE 2 07/27/2015 PRADIP MADISON MD, Ot L97.212 NON-PRESSURE CHRONIC ULCER OF RIGHT CALF 08/05/2015 PRADIP MADISON MD, Ot E11.622 TYPE 2 DIABETES MELLITUS WITH OTHER SKIN 08/05/2015 PRADIP MADISON MD, Ot E66.01 MORBID (SEVERE) OBESITY DUE TO EXCESS CA 08/05/2015 PRADIP MADISON MD, Ot I50.9 HEART FAILURE, UNSPECIFIED 08/05/2015 PRADIP MADISON MD Ot 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 08/05/2015 PRADIP MADISON MD Ot 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 08/05/2015 PRADIP MADISON MD Ot 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, STAGE 2 08/05/2015 PRADIP MADISON MD Ot L97.212 NON-PRESSURE CHRONIC ULCER OF RIGHT CALF 09/22/2015 PRADIP MADISON MD Ot E11.621 TYPE 2 DIABETES MELLITUS WITH FOOT ULCER 09/22/2015 PRADIP MADISON MD, Ot E11.622 TYPE 2 DIABETES MELLITUS WITH OTHER SKIN 09/22/2015 PRADIP MADISON MD, Ot E66.01 MORBID (SEVERE) OBESITY DUE TO EXCESS CA 09/22/2015 PRADIP MADISON MD, Ot I50.9 HEART FAILURE, UNSPECIFIED 09/22/2015 PRADIP MADISON MD, Ot 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 09/22/2015 PRADIP MADISON MD, Ot 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 09/22/2015 PRADIP MADISON MD, Ot 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, STAGE 2 09/22/2015 PRADIP MADISON MD, Ot L97.212 NON-PRESSURE CHRONIC ULCER OF RIGHT CALF 09/22/2015 PRADIP MADISON MD, Ot L97.511 NON-PRS CHRONIC ULCER OTH PRT R FOOT GIRON 09/22/2015 PRADIP MADISON MD, Ot Z68.42 BODY MASS INDEX (BMI) 45.0-49.9, ADULT 09/23/2015 PRADIP MADISON MD, Ot E11.621 TYPE 2 DIABETES MELLITUS WITH FOOT ULCER 09/23/2015 PRADIP MADISON MD, Ot E11.622 TYPE 2 DIABETES MELLITUS WITH OTHER SKIN 09/23/2015 PRADIP MADISON MD, Ot E66.01 MORBID (SEVERE) OBESITY DUE TO EXCESS CA 09/23/2015 PRADIP MADISON MD, Ot I50.9 HEART FAILURE, UNSPECIFIED 09/23/2015 PRADIP MADISON MD, Ot 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 09/23/2015 PRADIP MADISON MD, Ot 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 09/23/2015 PRADIP MADISON MD, Ot 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, STAGE 2 09/23/2015 PRADIP MADISON MD, Ot L97.212 NON-PRESSURE CHRONIC ULCER OF RIGHT CALF 09/23/2015 PRADIP MADISON MD, Ot L97.511 NON-PRS CHRONIC ULCER OTH PRT R FOOT GIRON 09/23/2015 PRADIP MADISON MD, Ot Z68.42 BODY MASS INDEX (BMI) 45.0-49.9, ADULT 09/28/2015 PRADIP MADISON MD, Ot E11.622 TYPE 2 DIABETES MELLITUS WITH OTHER SKIN 09/28/2015 PRDAIP MADISON MD Ot E66.01 MORBID (SEVERE) OBESITY DUE TO EXCESS CA 09/28/2015 PRADIP MADISON MD, Ot I50.9 HEART FAILURE, UNSPECIFIED 09/28/2015 GRICELDA MD, PRADIP G Ot 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 09/28/2015 PRADIP MADISON MD Ot 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 09/28/2015 PRADIP MADISON MD Ot 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, STAGE 2 09/28/2015 PRADIP MADISON MD Ot L97.212 NON-PRESSURE CHRONIC ULCER OF RIGHT CALF 09/29/2015 PRDAIP MADISON MD Ot E11.622 TYPE 2 DIABETES MELLITUS WITH OTHER SKIN 09/29/2015 PRADIP MADISON MD Ot E66.01 MORBID (SEVERE) OBESITY DUE TO EXCESS CA 09/29/2015 PRADIP MADISON MD Ot I50.9 HEART FAILURE, UNSPECIFIED 09/29/2015 PRADIP MADISON MD Ot 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 09/29/2015 PRADIP MADISON MD Ot 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 09/29/2015 PRADIP MADISON MD Ot 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, STAGE 2 09/29/2015 PRADIP MADISON MD Ot L97.212 NON-PRESSURE CHRONIC ULCER OF RIGHT CALF 10/23/2015 PRADIP MADISON MD Ot E11.622 TYPE 2 DIABETES MELLITUS WITH OTHER SKIN 10/23/2015 PRADIP MADISON MD, Ot E66.01 MORBID (SEVERE) OBESITY DUE TO EXCESS CA 10/23/2015 PRADIP MADISON MD, Ot I50.9 HEART FAILURE, UNSPECIFIED 10/23/2015 PRADIP MADISON MD Ot 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 10/23/2015 PRADIP MADISON MD Ot 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 10/23/2015 PRADIP MADISON MD Ot 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, STAGE 2 10/23/2015 PRADIP MADISON MD Ot L97.212 NON-PRESSURE CHRONIC ULCER OF RIGHT CALF 11/03/2015 CAROL MARTINEZ MD Ot I73.9 PERIPHERAL VASCULAR DISEASE, UNSPECIFIED 11/03/2015 CAROL MARTINEZ MD Ot M79.604 PAIN IN RIGHT LEG 11/13/2015 PRADIP MADISON MD Ot E11.622 TYPE 2 DIABETES MELLITUS WITH OTHER SKIN 11/13/2015 PRADIP MADISON MD, Ot E66.01 MORBID (SEVERE) OBESITY DUE TO EXCESS CA 11/13/2015 PRADIP MADISON MD Ot I50.9 HEART FAILURE, UNSPECIFIED 11/13/2015 PRADIP MADISON MD Ot 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 11/13/2015 PRADIP MADISON MD Ot 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 11/13/2015 PRADIP MADISON MD Ot 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, STAGE 2 11/13/2015 PRADIP MADISON MD Ot L97.212 NON-PRESSURE CHRONIC ULCER OF RIGHT CALF 11/16/2015 PRASHANTH SPEAR APRN Ot R06.02 SHORTNESS OF BREATH 11/23/2015 PRADIP MADISON MD Ot E11.622 TYPE 2 DIABETES MELLITUS WITH OTHER SKIN 11/23/2015 PRADIP MADISON MD, Ot E66.01 MORBID (SEVERE) OBESITY DUE TO EXCESS CA 11/23/2015 PRADIP MADISON MD, Ot I50.9 HEART FAILURE, UNSPECIFIED 11/23/2015 PRADIP MADISON MD Ot 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 11/23/2015 PRADIP MADISON MD Ot 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 11/23/2015 PRADIP MADISON MD Ot 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, STAGE 2 11/23/2015 PRADIP MADISON MD Ot L97.212 NON-PRESSURE CHRONIC ULCER OF RIGHT CALF 11/27/2015 TAMIKA WHITE DO Ot B96.4 PROTEUS (MIRABILIS) (MORGANII) CAUSING D 11/27/2015 TAMIKA WHITE DO Ot 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 11/27/2015 TAMIKA WHITE DO Ot E78.5 HYPERLIPIDEMIA, UNSPECIFIED 11/27/2015 TAMIKA WHITE DO Ot E86.0 DEHYDRATION 11/27/2015 TAMIKA WHITE DO Ot I12.9 HYPERTENSIVE CHRONIC KIDNEY DISEASE W ST 11/27/2015 TAMIKA WHITE DO Ot I25.10 ATHSCL HEART DISEASE OF [place] CORONARY 11/27/2015 TAMIKA WHITE DO Ot K21.9 GASTRO-ESOPHAGEAL REFLUX DISEASE WITHOUT 11/27/2015 TAMIKA WHITE DO Ot L97.919 NON-PRS CHRONIC ULC UNSP PRT OF R LOW LE 11/27/2015 TAMIKA WHITE DO Ot N18.9 CHRONIC KIDNEY DISEASE, UNSPECIFIED 11/27/2015 TAMIKA WHITE DO Ot N39.0 URINARY TRACT INFECTION, SITE NOT SPECIF 11/27/2015 TAMIKA WHITE DO Ot Z79.4 ALF (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 OF INSULIN 11/27/2015 TAMIKA WHITE DO Ot Z95.5 PRESENCE OF CORONARY ANGIOPLASTY IMPLANT 12/03/2015 Ot 715.37 LOC OSTEOARTH NOS-ANKLE 12/03/2015 Ot 397.0 TRICUSPID VALVE DISEASE 12/03/2015 Ot 414.00 CORON ATHEROSCLER NOS TYPE VESSEL, NATIV 12/03/2015 Ot 424.0 MITRAL VALVE DISORDER 12/03/2015 Ot 782.3 EDEMA 12/03/2015 Ot 786.09 RESPIRATORY ABNORM NEC 12/03/2015 SILVA JONES, GE [place] Ot V72.84 EXAM PRE-OPERATIVE NOS 12/03/2015 PRADIP MADISON MD Ot 443.9 PERIPH VASCULAR DIS NOS 12/03/2015 PRADIP MADISON MD Ot 707.10 ULCER OF LOWER LIMB NOS 12/03/2015 TAMIKA WHITE DO Ot 250.00 DIAB SHERRIE WO COMPL, TYPE II OR UNSPEC TY 12/03/2015 TAMIKA WHITE DO Ot 433.10 CAROTID ARTERY OCCLUSION W O CEREBRAL IN 12/03/2015 JESSICA MEJIA MD Ot 250.00 DIAB SHERRIE WO COMPL, TYPE II OR UNSPEC TY 12/03/2015 JESSICA MEJIA MD Ot 272.4 HYPERLIPIDEMIA NEC/NOS 12/03/2015 JESSICA MEJIA MD Ot 401.9 HYPERTENSION NOS 12/03/2015 JESSICA MEJIA MD Ot 414.00 CORON ATHEROSCLER NOS TYPE VESSEL, NATIV 12/03/2015 JESSICA MEJIA MD Ot 433.10 CAROTID ARTERY OCCLUSION W O CEREBRAL IN 12/03/2015 JESSICA MEJIA MD Ot 459.81 VENOUS INSUFFICIENCY NOS 12/03/2015 JESSICA MEJIA MD Ot 250.00 DIAB SHERRIE WO COMPL, TYPE II OR UNSPEC TY 12/03/2015 JESSICA MEJIA MD Ot 272.4 HYPERLIPIDEMIA NEC/NOS 12/03/2015 JESSICA MEJIA MD Ot 401.9 HYPERTENSION NOS 12/03/2015 JESSICA MEJIA MD Ot 414.00 CORON ATHEROSCLER NOS TYPE VESSEL, NATIV 12/03/2015 JESSICA MEJIA MD Ot 433.10 CAROTID ARTERY OCCLUSION W O CEREBRAL IN 12/03/2015 JESSICA MEJIA MD Ot 459.81 VENOUS INSUFFICIENCY NOS 12/03/2015 PERLA LEE MD Ot 433.10 CAROTID ARTERY OCCLUSION W O CEREBRAL IN 12/03/2015 PERLA LEE MD Ot V72.63 PRE-PROCEDURAL LABORATORY EXAMINATION 12/03/2015 PERLA LEE MD Ot V72.83 EXAM PRE-OPERATIVE NEC 12/03/2015 PERLA LEE MD Ot V74.8 SCREEN-BACTERIAL DIS NEC 12/03/2015 PRADIP MADISON MD Ot 250.80 DIAB W OTH SPEC MANIFEST, TYPE II OR UNS 12/03/2015 PRADIP MADISON MD Ot 414.01 CORONARY ATHEROSCLEROSIS OF [place] CORON 12/03/2015 PRADIP MADISON MD Ot 440.23 ATHEROSCL [place] ARTER EXTREMITIES W ULC 12/03/2015 PRADIP MADISON MD Ot 459.33 CHRONIC VENOUS HYPERTEN W ULCER/INFLAMMA 12/03/2015 PRADIP MADISON MD Ot 707.12 ULCER OF CALF 12/03/2015 PRADIP MADISON MD Ot 785.9 CARDIOVAS SYS SYMP NEC 12/03/2015 PRADIP MADISON MD Ot V45.82 PERCUTANEOUS TRANSLUM CORON ANGIOPLASTY 12/03/2015 PRADIP MADISON MD Ot 443.9 PERIPH VASCULAR DIS NOS 12/03/2015 PRADIP MADISON MD Ot 457.1 OTHER LYMPHEDEMA 12/03/2015 PRADIP MADISON MD Ot 707.12 ULCER OF CALF 12/03/2015 TAMIKA WHITE DO Ot 786.05 SHORTNESS OF BREATH 12/03/2015 CAROL MARTINEZ MD Ot E78.2 MIXED HYPERLIPIDEMIA 12/03/2015 CAROL MARTINEZ MD Ot I10 ESSENTIAL (PRIMARY) HYPERTENSION 12/03/2015 CAROL MARTINEZ MD Ot I25.10 ATHSCL HEART DISEASE OF [place] CORONARY 12/03/2015 CAROL MARTINEZ MD Ot R06.02 SHORTNESS OF BREATH 12/03/2015 PRADIP MADISON MD, Ot E11.622 TYPE 2 DIABETES MELLITUS WITH OTHER SKIN 12/03/2015 PRADIP MADISON MD, Ot E66.01 MORBID (SEVERE) OBESITY DUE TO EXCESS CA 12/03/2015 PRADIP MADISON MD Ot I50.9 HEART FAILURE, UNSPECIFIED 12/03/2015 PRADIP MADISON MD, Ot 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 12/03/2015 PRADIP MADISON MD Ot 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 12/03/2015 PRADIP MADISON MD Ot 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, STAGE 2 12/03/2015 PRADIP MADISON MD, Ot L97.212 NON-PRESSURE CHRONIC ULCER OF RIGHT CALF 12/03/2015 CAROL MARTINEZ MD Ot I73.9 PERIPHERAL VASCULAR DISEASE, UNSPECIFIED 12/03/2015 CAROL MARTINEZ MD Ot M79.604 PAIN IN RIGHT LEG 12/03/2015 PRASHANTH SPEAR APRN Ot R06.02 SHORTNESS OF BREATH 12/03/2015 PRADIP MADISON MD, Ot E11.622 TYPE 2 DIABETES MELLITUS WITH OTHER SKIN 12/03/2015 PRADIP MADISON MD, Ot E66.01 MORBID (SEVERE) OBESITY DUE TO EXCESS CA 12/03/2015 PRADIP MADISON MD Ot I87.333 CHRONIC VENOUS HTN W ULCER AND INFLAM OF 12/03/2015 PRADIP MADISON MD, Ot I89.0 LYMPHEDEMA, NOT ELSEWHERE CLASSIFIED 12/03/2015 PRADIP MADISON MD, Ot L97.212 NON-PRESSURE CHRONIC ULCER OF RIGHT CALF 12/04/2015 PRADIP MADISON MD, Ot E11.622 TYPE 2 DIABETES MELLITUS WITH OTHER SKIN 12/04/2015 PRADIP MADISON MD Ot E66.01 MORBID (SEVERE) OBESITY DUE TO EXCESS CA 12/04/2015 PRADIP MADISON MD, Ot 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 12/04/2015 PRADIP MADISON MD Ot 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 12/04/2015 PRADIP MADISON MD, Ot I89.0 LYMPHEDEMA, NOT ELSEWHERE CLASSIFIED 12/04/2015 PRADIP MADISON MD, Ot L97.212 NON-PRESSURE CHRONIC ULCER OF RIGHT CALF 12/07/2015 PRADIP MADISON MD, Ot E11.622 TYPE 2 DIABETES MELLITUS WITH OTHER SKIN 12/07/2015 PRADIP MADISON MD, Ot E66.01 MORBID (SEVERE) OBESITY DUE TO EXCESS CA 12/07/2015 PRADIP MADISON MD Ot 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 12/07/2015 PRADIP MADISON MD Ot 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 12/07/2015 PRADIP MADISON MD Ot I89.0 LYMPHEDEMA, NOT ELSEWHERE CLASSIFIED 12/07/2015 PRADIP MADISON MD, Ot L97.212 NON-PRESSURE CHRONIC ULCER OF RIGHT CALF 12/07/2015 PRADIP MADISON MD, Ot E11.622 TYPE 2 DIABETES MELLITUS WITH OTHER SKIN 12/07/2015 PRADIP MADISON MD, Ot E66.01 MORBID (SEVERE) OBESITY DUE TO EXCESS CA 12/07/2015 PRADIP MADISON MD, Ot I50.9 HEART FAILURE, UNSPECIFIED 12/07/2015 PRADIP MADISON MD Ot 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 12/07/2015 PRADIP MADISON MD Ot 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 12/07/2015 PRADIP MADISON MD Ot 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, STAGE 2 12/07/2015 PRADIP MADISON MD, Ot L97.212 NON-PRESSURE CHRONIC ULCER OF RIGHT CALF 12/07/2015 PRADIP MADISON MD, Ot E11.622 TYPE 2 DIABETES MELLITUS WITH OTHER SKIN 12/07/2015 PRADIP MADISON MD Ot E66.01 MORBID (SEVERE) OBESITY DUE TO EXCESS CA 12/07/2015 PRADIP MADISON MD Ot I50.9 HEART FAILURE, UNSPECIFIED 12/07/2015 PRADIP MADISON MD Ot 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 12/07/2015 PRADIP MADISON MD, Ot 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 12/07/2015 PRADIP MADISON MD Ot 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, STAGE 2 12/07/2015 PRADIP MADISON MD Ot L97.212 NON-PRESSURE CHRONIC ULCER OF RIGHT CALF 12/07/2015 PRASHANTH SPEAR APRN Ot R06.02 SHORTNESS OF BREATH 12/09/2015 PRADIP MADISON MD, Ot E11.622 TYPE 2 DIABETES MELLITUS WITH OTHER SKIN 12/09/2015 PRADIP MADISON MD, Ot E66.01 MORBID (SEVERE) OBESITY DUE TO EXCESS CA 12/09/2015 PRADIP MADISON MD, Ot I87.333 CHRONIC VENOUS HTN W ULCER AND INFLAM OF 12/09/2015 PRADIP MADISON MD, Ot I89.0 LYMPHEDEMA, NOT ELSEWHERE CLASSIFIED 12/09/2015 PRADIP MADISON MD, Ot L97.212 NON-PRESSURE CHRONIC ULCER OF RIGHT CALF 12/09/2015 PRADIP MADISON MD, Ot E11.622 TYPE 2 DIABETES MELLITUS WITH OTHER SKIN 12/09/2015 PRADIP MADISON MD, Ot E66.01 MORBID (SEVERE) OBESITY DUE TO EXCESS CA 12/09/2015 PRADIP MADISON MD, Ot 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 12/09/2015 PRADIP MADISON MD, Ot 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 12/09/2015 PRADIP MADISON MD, Ot I89.0 LYMPHEDEMA, NOT ELSEWHERE CLASSIFIED 12/09/2015 PRADIP MADISON MD, Ot L97.212 NON-PRESSURE CHRONIC ULCER OF RIGHT CALF 12/09/2015 PRASHANTH SPEAR APRN Ot R06.02 SHORTNESS OF BREATH 12/16/2015 PRADIP MADISON MD, Ot E11.622 TYPE 2 DIABETES MELLITUS WITH OTHER SKIN 12/16/2015 PRADIP MADISON MD, Ot E66.01 MORBID (SEVERE) OBESITY DUE TO EXCESS CA 12/16/2015 PRADIP MADISON MD, Ot I87.333 CHRONIC VENOUS HTN W ULCER AND INFLAM OF 12/16/2015 PRADIP MADISON MD, Ot I89.0 LYMPHEDEMA, NOT ELSEWHERE CLASSIFIED 12/16/2015 PRADIP MADISON MD, Ot L97.212 NON-PRESSURE CHRONIC ULCER OF RIGHT CALF 12/22/2015 JOHANNA MCKENZIE DO, Ot E11.9 TYPE 2 DIABETES MELLITUS WITHOUT COMPLIC 12/22/2015 JOHANNA MCKENZIE DO, Ot I10 ESSENTIAL (PRIMARY) HYPERTENSION 12/22/2015 JOHANNA MCKENZIE DO, Ot J44.1 CHRONIC OBSTRUCTIVE PULMONARY DISEASE W 12/22/2015 JOHANNA MCKENZIE DO Ot R05 COUGH 12/22/2015 JOHANNA MCKENZIE DO, Ot Z79.4 ALF (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 OF INSULIN 12/22/2015 JOHANNA MCKENZIE DO, Ot Z79.82 ALF (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 OF ASPIRIN 12/22/2015 JOHANNA MCKENZIE DO, Ot Z79.899 OTHER HAND ENGRAVER (CURRENT) DRUG THERAPY 12/22/2015 JOHANNA MCKENZIE DO, Ot E11.9 TYPE 2 DIABETES MELLITUS WITHOUT COMPLIC 12/22/2015 JOHANNA MCKENZIE DO Ot I10 ESSENTIAL (PRIMARY) HYPERTENSION 12/22/2015 JOHANNA MCKENZIE DO, Ot J44.1 CHRONIC OBSTRUCTIVE PULMONARY DISEASE W 12/22/2015 JOHANNA MCKENZIE DO Ot R05 COUGH 12/22/2015 JOHANNA MCKENZIE DO, Ot Z79.4 HAND ENGRAVER (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 OF INSULIN 12/22/2015 JOHANNA MCKENZIE DO, Ot Z79.82 HAND ENGRAVER (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 OF ASPIRIN 12/22/2015 JOHANNA MCKENZIE DO, Ot Z79.899 OTHER HAND ENGRAVER (CURRENT) DRUG THERAPY 12/22/2015 ANGELA ALEGRIA Ot E78.2 MIXED HYPERLIPIDEMIA 12/22/2015 ANGELA ALEGRIA Ot G47.33 OBSTRUCTIVE SLEEP APNEA (ADULT ) (PEDIATR 12/22/2015 ANGELA ALEGRIA Ot I10 ESSENTIAL (PRIMARY) HYPERTENSION 12/22/2015 ANGELA ALEGRIA Ot I25.10 ATHSCL HEART DISEASE OF [place] CORONARY 12/23/2015 JOHANNA MCKENZIE DO, Ot E11.9 TYPE 2 DIABETES MELLITUS WITHOUT COMPLIC 12/23/2015 JOHANNA MCKENZIE DO Ot I10 ESSENTIAL (PRIMARY) HYPERTENSION 12/23/2015 JOHANNA MCKENZIE DO, Ot J44.1 CHRONIC OBSTRUCTIVE PULMONARY DISEASE W 12/23/2015 JOHANNA MCKENZIE DO Ot R05 COUGH 12/23/2015 JOHANNA MCKENZIE DO, Ot Z79.4 HAND ENGRAVER (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 OF INSULIN 12/23/2015 JOHANNA MCKENZIE DO, Ot Z79.82 ALF (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 OF ASPIRIN 12/23/2015 JOHANNA MCKENZIE DO, Ot Z79.899 OTHER HAND ENGRAVER (CURRENT) DRUG THERAPY 12/24/2015 PRADIP MADISON MD, Ot E11.622 TYPE 2 DIABETES MELLITUS WITH OTHER SKIN 12/24/2015 PRADIP MADISON MD, Ot E66.01 MORBID (SEVERE) OBESITY DUE TO EXCESS CA 12/24/2015 PRADIP MADISON MD, Ot 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 12/24/2015 PRADIP MADISON MD, Ot 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 12/24/2015 PRADIP MADISON MD, Ot I89.0 LYMPHEDEMA, NOT ELSEWHERE CLASSIFIED 12/24/2015 PRADIP MADISON MD, Ot L97.212 NON-PRESSURE CHRONIC ULCER OF RIGHT CALF 12/31/2015 PRADIP MADISON MD, Ot E11.622 TYPE 2 DIABETES MELLITUS WITH OTHER SKIN 12/31/2015 PRADIP MADISON MD, Ot E66.01 MORBID (SEVERE) OBESITY DUE TO EXCESS CA 12/31/2015 PRADIP MADISON MD, Ot 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 12/31/2015 PRADIP MADISON MD, Ot 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 12/31/2015 PRADIP MADISON MD, Ot I89.0 LYMPHEDEMA, NOT ELSEWHERE CLASSIFIED 12/31/2015 PRADIP MADISON MD, Ot L97.212 NON-PRESSURE CHRONIC ULCER OF RIGHT CALF 01/11/2016 PRADIP MADISON MD, Ot E11.622 TYPE 2 DIABETES MELLITUS WITH OTHER SKIN 01/11/2016 PRADIP MADISON MD, Ot E66.01 MORBID (SEVERE) OBESITY DUE TO EXCESS CA 01/11/2016 PRADIP MADISON MD, Ot 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 01/11/2016 PRADIP MADISON MD, Ot I89.0 LYMPHEDEMA, NOT ELSEWHERE CLASSIFIED 01/11/2016 PRADIP MADISON MD, Ot L97.212 NON-PRESSURE CHRONIC ULCER OF RIGHT CALF 01/11/2016 PRADIP MADISON MD, Ot Z68.42 BODY MASS INDEX (BMI) 45.0-49.9, ADULT 01/14/2016 ANGELA ALEGRIA Ot E78.2 MIXED HYPERLIPIDEMIA 01/14/2016 ANGELA ALEGRIA Ot G47.33 OBSTRUCTIVE SLEEP APNEA (ADULT ) (PEDIATR 01/14/2016 ANGELA ALEGRIA Ot I10 ESSENTIAL (PRIMARY) HYPERTENSION 01/14/2016 ANGELA ALEGRIA Ot I25.10 ATHSCL HEART DISEASE OF [place] CORONARY 01/21/2016 RAINER, PRASHANTH E PUBLIC HEALTH SERVICE OFFICER Ot R06.02 SHORTNESS OF BREATH 01/22/2016 ANGELA ALEGRIA Ot E78.2 MIXED HYPERLIPIDEMIA 01/22/2016 ANGELA ALEGRIA Ot G47.33 OBSTRUCTIVE SLEEP APNEA (ADULT ) (PEDIATR 01/22/2016 ANGELA ALEGRIA Ot I10 ESSENTIAL (PRIMARY) HYPERTENSION 01/22/2016 ANGELA ALEGRIA Ot I25.10 ATHSCL HEART DISEASE OF [place] CORONARY 02/10/2016 PRASHANTH SPEAR PUBLIC HEALTH SERVICE OFFICER Ot R06.02 SHORTNESS OF BREATH 02/17/2016 PRASHANTH SPEAR PUBLIC HEALTH SERVICE OFFICER Ot R06.02 SHORTNESS OF BREATH 03/23/2016 ROZ SOLIS MD, Ot E11.622 TYPE 2 DIABETES MELLITUS WITH OTHER SKIN 03/23/2016 ROZ SOLIS MD, Ot 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 03/23/2016 ROZ SOLIS MD, Ot L97.212 NON-PRESSURE CHRONIC ULCER OF RIGHT CALF 03/23/2016 ROZ SOLIS MD, Ot E11.622 TYPE 2 DIABETES MELLITUS WITH OTHER SKIN 03/23/2016 ROZ SOLIS MD Ot I70.232 ATHSCL [place] ARTERIES OF RIGHT LEG W 03/23/2016 ROZ SOLIS MD, Ot L97.212 NON-PRESSURE CHRONIC ULCER OF RIGHT CALF 03/25/2016 TAMIKA WHITE DO Ot E11.65 TYPE 2 DIABETES MELLITUS WITH HYPERGLYCE 03/28/2016 TAMIKA WHITE DO Ot E11.65 TYPE 2 DIABETES MELLITUS WITH HYPERGLYCE 04/15/2016 ROZ SOLIS MD, Ot E11.622 TYPE 2 DIABETES MELLITUS WITH OTHER SKIN 04/15/2016 ROZ SOLIS MD Ot 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 04/15/2016 ROZ SOLIS MD, Ot L97.212 NON-PRESSURE CHRONIC ULCER OF RIGHT CALF 04/20/2016 ROZ SOLIS MD, Ot E11.622 TYPE 2 DIABETES MELLITUS WITH OTHER SKIN 04/20/2016 ROZ SOLIS MD Ot I70.232 ATHSCL [place] ARTERIES OF RIGHT LEG W 04/20/2016 ROZ SOLIS MD Ot L97.212 NON-PRESSURE CHRONIC ULCER OF RIGHT CALF 05/02/2016 ROZ SOLIS MD, Ot E11.622 TYPE 2 DIABETES MELLITUS WITH OTHER SKIN 05/02/2016 ROZ SOLIS MD Ot E66.01 MORBID (SEVERE) OBESITY DUE TO EXCESS CA 05/02/2016 ROZ SOLIS MD Ot 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 05/02/2016 ROZ SOLIS MD Ot 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 05/02/2016 ROZ SOLIS MD Ot I89.0 LYMPHEDEMA, NOT ELSEWHERE CLASSIFIED 05/02/2016 ROZ SOLIS MD Ot L97.212 NON-PRESSURE CHRONIC ULCER OF RIGHT CALF 05/02/2016 TAMIKA WHITE DO Ot E11.65 TYPE 2 DIABETES MELLITUS WITH HYPERGLYCE 05/05/2016 ROZ SOLIS MD Ot E11.622 TYPE 2 DIABETES MELLITUS WITH OTHER SKIN 05/05/2016 ROZ SOLIS MD, Ot E66.01 MORBID (SEVERE) OBESITY DUE TO EXCESS CA 05/05/2016 ROZ SOLIS MD Ot 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 05/05/2016 ROZ SOLIS MD Ot 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 05/05/2016 ROZ SOLIS MD Ot I89.0 LYMPHEDEMA, NOT ELSEWHERE CLASSIFIED 05/05/2016 ROZ SOLIS MD Ot L97.212 NON-PRESSURE CHRONIC ULCER OF RIGHT CALF 05/05/2016 TAMIKA WIHTE DO Ot E11.65 TYPE 2 DIABETES MELLITUS WITH HYPERGLYCE 06/15/2016 ROZ SOLIS MD Ot E11.622 TYPE 2 DIABETES MELLITUS WITH OTHER SKIN 06/15/2016 ROZ SOLIS MD Ot E66.01 MORBID (SEVERE) OBESITY DUE TO EXCESS CA 06/15/2016 ROZ SOLIS MD Ot 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 06/15/2016 ROZ SOLIS MD Ot 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 06/15/2016 ROZ SOLIS MD Ot I89.0 LYMPHEDEMA, NOT ELSEWHERE CLASSIFIED 06/15/2016 ROZ SOLIS MD Ot L97.212 NON-PRESSURE CHRONIC ULCER OF RIGHT CALF 06/16/2016 ROZ SOLIS MD Ot E11.622 TYPE 2 DIABETES MELLITUS WITH OTHER SKIN 06/16/2016 ROZ SOLIS MD Ot E66.01 MORBID (SEVERE) OBESITY DUE TO EXCESS CA 06/16/2016 ROZ SOLIS MD Ot 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 06/16/2016 ROZ SOLIS MD Ot 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 06/16/2016 ROZ SOLIS MD Ot I89.0 LYMPHEDEMA, NOT ELSEWHERE CLASSIFIED 06/16/2016 ROZ SOLIS MD Ot L97.212 NON-PRESSURE CHRONIC ULCER OF RIGHT CALF 06/17/2016 ROZ SOLIS MD Ot E11.622 TYPE 2 DIABETES MELLITUS WITH OTHER SKIN 06/17/2016 ROZ SOLIS MD Ot E66.01 MORBID (SEVERE) OBESITY DUE TO EXCESS CA 06/17/2016 ROZ SOLIS MD Ot 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 06/17/2016 ROZ SOLIS MD, Ot 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 06/17/2016 ROZ SOLIS MD, Ot I89.0 LYMPHEDEMA, NOT ELSEWHERE CLASSIFIED 06/17/2016 ROZ SOLIS MD, Ot L97.212 NON-PRESSURE CHRONIC ULCER OF RIGHT CALF 06/22/2016 TAMIKA WHITE DO Ot E11.65 TYPE 2 DIABETES MELLITUS WITH HYPERGLYCE 07/13/2016 CAROL MARTINEZ MD Ot 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 07/13/2016 CAROL MARTINEZ MD Ot E11.621 TYPE 2 DIABETES MELLITUS WITH FOOT ULCER 07/13/2016 CAROL MARTINEZ MD Ot E66.9 OBESITY, UNSPECIFIED 07/13/2016 CAROL MARTINEZ MD Ot G47.33 OBSTRUCTIVE SLEEP APNEA (ADULT) (PEDIATR 07/13/2016 CAROL MARTINEZ MD Ot I12.9 HYPERTENSIVE CHRONIC KIDNEY DISEASE W ST 07/13/2016 CAROL MARTINEZ MD Ot I25.10 ATHSCL HEART DISEASE OF [place] CORONARY 07/13/2016 CAROL MARTINEZ MD Ot I70.0 ATHEROSCLEROSIS OF [place] 07/13/2016 CAROL MARTINEZ MD Ot I70.203 UNSP ATHSCL [place] ARTERIES OF EXTREMITI 07/13/2016 CAROL MARTINEZ MD Ot J44.9 CHRONIC OBSTRUCTIVE PULMONARY DISEASE, U 07/13/2016 CAROL MARTINEZ MD Ot L97.819 NON-PRESSURE CHRONIC ULCER OTH PRT R LOW 07/13/2016 CAROL MARTINEZ MD Ot N18.9 CHRONIC KIDNEY DISEASE, UNSPECIFIED 07/13/2016 CAROL MARTINEZ MD Ot Z68.43 BODY MASS INDEX (BMI) 50-59.9 , ADULT 07/13/2016 CAROL MARTINEZ MD, Ot Z79.01 HAND ENGRAVER (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 OF ANTICOAGULANT 07/13/2016 CAROL MARTINEZ MD Ot Z79.4 HAND ENGRAVER (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 OF INSULIN 07/13/2016 CAROL MARTINEZ MD, Ot Z79.899 OTHER ALF (CURRENT) DRUG THERAPY 07/21/2016 ROZ SOLIS MD, Ot E11.622 TYPE 2 DIABETES MELLITUS WITH OTHER SKIN 07/21/2016 ROZ SOLIS MD, Ot E66.01 MORBID (SEVERE) OBESITY DUE TO EXCESS CA 07/21/2016 ROZ SOLIS MD, Ot 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 07/21/2016 ROZ SOLIS MD, Ot 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 07/21/2016 ROZ SOLIS MD, Ot I89.0 LYMPHEDEMA, NOT ELSEWHERE CLASSIFIED 07/21/2016 ROZ SOLIS MD, Ot L97.212 NON-PRESSURE CHRONIC ULCER OF RIGHT CALF 07/27/2016 ROZ SOLIS MD, Ot E11.622 TYPE 2 DIABETES MELLITUS WITH OTHER SKIN 07/27/2016 ROZ SOLIS MD, Ot E66.01 MORBID (SEVERE) OBESITY DUE TO EXCESS CA 07/27/2016 ROZ SOLIS MD, Ot 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 07/27/2016 ROZ SOLIS MD Ot 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 07/27/2016 ROZ SOLIS MD, Ot I89.0 LYMPHEDEMA, NOT ELSEWHERE CLASSIFIED 07/27/2016 ROZ SOLIS MD, Ot L97.212 NON-PRESSURE CHRONIC ULCER OF RIGHT CALF 07/29/2016 CAROL MARTINEZ MD Ot 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 07/29/2016 CAROL MARTINEZ MD, Ot E11.621 TYPE 2 DIABETES MELLITUS WITH FOOT ULCER 07/29/2016 CAROL MARTINEZ MD Ot E66.9 OBESITY, UNSPECIFIED 07/29/2016 CAROL MARTINEZ MD Ot G47.33 OBSTRUCTIVE SLEEP APNEA (ADULT) (PEDIATR 07/29/2016 CAROL MARTINEZ MD, Ot I12.9 HYPERTENSIVE CHRONIC KIDNEY DISEASE W ST 07/29/2016 CAROL MARTINEZ MD, Ot I25.10 ATHSCL HEART DISEASE OF [place] CORONARY 07/29/2016 CAROL MARTINEZ MD, Ot I70.0 ATHEROSCLEROSIS OF [place] 07/29/2016 CAROL MARTINEZ MD, Ot I70.203 UNSP ATHSCL [place] ARTERIES OF EXTREMITI 07/29/2016 CAROL MARTINEZ MD, Ot J44.9 CHRONIC OBSTRUCTIVE PULMONARY DISEASE, U 07/29/2016 CAROL MARTINEZ MD, Ot L97.819 NON-PRESSURE CHRONIC ULCER OTH PRT R LOW 07/29/2016 CAROL MARTINEZ MD, Ot N18.9 CHRONIC KIDNEY DISEASE, UNSPECIFIED 07/29/2016 CAROL MARTINEZ MD, Ot Z68.43 BODY MASS INDEX (BMI) 50-59.9 , ADULT 07/29/2016 CAROL MARTINEZ MD, Ot Z79.01 ALF (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 OF ANTICOAGULANT 07/29/2016 CAROL MARTINEZ MD, Ot Z79.4 HAND ENGRAVER (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 OF INSULIN 07/29/2016 CAROL MARTINEZ MD, Ot Z79.899 OTHER HAND ENGRAVER (CURRENT) DRUG THERAPY Procedures Code Description Performed By Performed On 38.12 07/30/2014 Results Test Result Range Bacteria identification in isolate by anaerobe culture - 09/21/15 11:35 Bacteria identification in isolate by anaerobe culture NOANA NRG Gram stain microscopy - 09/21/15 11:35 GRAM STAIN RESULT FEW WBC'S, NO BACTERIA OBSERVED NRG Bacteria identification in wound by culture - 09/21/15 11:35 Bacteria identification in wound by culture [id number] NRG FREE TEXT EXTERNAL BETA LACTAMASE NEGATIVE NRG QUANTITY OF GROWTH Scant Growth NRG FREE TEXT ENTRY 2 SEE COMMENT NRG Bacteria identification in isolate by anaerobe culture - 10/26/15 11:00 Bacteria identification in isolate by anaerobe culture NOANA NRG Gram stain microscopy - 10/26/15 11:00 GRAM STAIN RESULT FEW WBC'S, NO BACTERIA OBSERVED NRG Bacteria identification in wound by culture - 10/26/15 11:00 Bacteria identification in wound by culture [id number] NRG FREE TEXT EXTERNAL NO FUTHER TESTING UNLESS REQUESTED NRG QUANTITY OF GROWTH Scant Growth NRG Capillary blood glucose measurement by glucometer (mass/volume) - 11/10/15 14: 53 Capillary blood glucose measurement by glucometer (mass/volume) 215 mg/dL 70-110 Complete blood count (CBC) with automated white blood cell (WBC) differential - 11/23/15 12:12 Blood leukocytes automated count (number/volume) 6.3 10*3/ uL 4.3-11.0 Blood erythrocytes automated count (number/volume) 3.80 10*6 /uL 4.35-5.85 Venous blood hemoglobin measurement (mass/volume) 10.5 g/dL 13.3-17.7 Blood hematocrit (volume fraction) 32 % 40-54 Automated erythrocyte mean corpuscular volume 85 [foz_us] 80-99 Automated erythrocyte mean corpuscular hemoglobin (mass per erythrocyte) 28 pg 25-34 Automated erythrocyte mean corpuscular hemoglobin concentration measurement ( mass/volume) 33 g/dL 32-36 Automated erythrocyte distribution width ratio 14.9 % 10.0-14.5 Automated blood platelet count (count/volume) 180 10*3/uL 130-400 Automated blood platelet mean volume measurement 10.1 [foz_ us] 7.4-10.4 Automated blood neutrophils/100 leukocytes 58 % 42-75 Automated blood lymphocytes/100 leukocytes 27 % 12-44 Blood monocytes/100 leukocytes 9 % 0-12 Automated blood eosinophils/100 leukocytes 5 % 0-10 Automated blood basophils/100 leukocytes 0 % 0-10 Blood neutrophils automated count (number/volume) 3.7 10*3 1.8-7.8 Blood lymphocytes automated count (number/volume) 1.7 10*3 1.0-4.0 Blood monocytes automated count (number/volume) 0.6 10*3 0.0-1.0 Automated eosinophil count 0.3 10*3/uL 0.0-0.3 Automated blood basophil count (count/volume) 0.0 10*3/uL 0.0-0.1 Comprehensive metabolic panel - 11/23/15 12:12 Serum or plasma sodium measurement (moles/volume) 135 mmol/ L 135-145 Serum or plasma potassium measurement (moles/volume) 4.9 mmol/L 3.6-5.0 Serum or plasma chloride measurement (moles/volume) 100 mmol /L 98-107 Carbon dioxide 25 mmol/L 21-32 Serum or plasma anion gap determination (moles/volume) 10 mmol/L 5-14 Serum or plasma urea nitrogen measurement (mass/volume) 20 mg/dL 7-18 Serum or plasma creatinine measurement (mass/volume) 1.80 mg /dL 0.60-1.30 Serum or plasma urea nitrogen/creatinine mass ratio 11 NRG Serum or plasma creatinine measurement with calculation of estimated glomerular filtration rate 37 NRG Serum or plasma glucose measurement (mass/volume) 189 mg/dL 70-105 Serum or plasma calcium measurement (mass/volume) 8.7 mg/dL 8.5-10.1 Serum or plasma total bilirubin measurement (mass/volume) 0.4 mg/dL 0.1-1.0 Serum or plasma alkaline phosphatase measurement (enzymatic activity/volume) 103 U/L 40-136 Serum or plasma aspartate aminotransferase measurement (enzymatic activity/ volume) 24 U/L 5-34 Serum or plasma alanine aminotransferase measurement (enzymatic activity/volume ) 21 U/L 0-55 Serum or plasma protein measurement (mass/volume) 6.0 g/dL 6.4-8.2 Serum or plasma albumin measurement (mass/volume) 3.1 g/dL 3.2-4.5 Hemoglobin A1c - 11/23/15 12:12 Hemoglobin A1c 8.0 % 4.5-6.2 Complete blood count (CBC) with automated white blood cell (WBC) differential - 11/25/15 14:24 Blood leukocytes automated count (number/volume) 7.7 10*3/ uL 4.3-11.0 Blood erythrocytes automated count (number/volume) 3.78 10*6 /uL 4.35-5.85 Venous blood hemoglobin measurement (mass/volume) 10.3 g/dL 13.3-17.7 Blood hematocrit (volume fraction) 32 % 40-54 Automated erythrocyte mean corpuscular volume 85 [foz_us] 80-99 Automated erythrocyte mean corpuscular hemoglobin (mass per erythrocyte) 27 pg 25-34 Automated erythrocyte mean corpuscular hemoglobin concentration measurement ( mass/volume) 32 g/dL 32-36 Automated erythrocyte distribution width ratio 14.9 % 10.0-14.5 Automated blood platelet count (count/volume) 185 10*3/uL 130-400 Automated blood platelet mean volume measurement 10.6 [foz_ us] 7.4-10.4 Automated blood neutrophils/100 leukocytes 64 % 42-75 Automated blood lymphocytes/100 leukocytes 22 % 12-44 Blood monocytes/100 leukocytes 9 % 0-12 Automated blood eosinophils/100 leukocytes 5 % 0-10 Automated blood basophils/100 leukocytes 0 % 0-10 Blood neutrophils automated count (number/volume) 4.9 10*3 1.8-7.8 Blood lymphocytes automated count (number/volume) 1.7 10*3 1.0-4.0 Blood monocytes automated count (number/volume) 0.7 10*3 0.0-1.0 Automated eosinophil count 0.4 10*3/uL 0.0-0.3 Automated blood basophil count (count/volume) 0.0 10*3/uL 0.0-0.1 Comprehensive metabolic panel - 11/25/15 14:24 Serum or plasma sodium measurement (moles/volume) 132 mmol/ L 135-145 Serum or plasma potassium measurement (moles/volume) 5.2 mmol/L 3.6-5.0 Serum or plasma chloride measurement (moles/volume) 100 mmol /L 98-107 Carbon dioxide 27 mmol/L 21-32 Serum or plasma anion gap determination (moles/volume) 5 mmol/L 5-14 Serum or plasma urea nitrogen measurement (mass/volume) 17 mg/dL 7-18 Serum or plasma creatinine measurement (mass/volume) 1.61 mg /dL 0.60-1.30 Serum or plasma urea nitrogen/creatinine mass ratio 11 NRG Serum or plasma creatinine measurement with calculation of estimated glomerular filtration rate 42 NRG Serum or plasma glucose measurement (mass/volume) 227 mg/dL 70-105 Serum or plasma calcium measurement (mass/volume) 8.7 mg/dL 8.5-10.1 Serum or plasma total bilirubin measurement (mass/volume) 0.4 mg/dL 0.1-1.0 Serum or plasma alkaline phosphatase measurement (enzymatic activity/volume) 103 U/L 40-136 Serum or plasma aspartate aminotransferase measurement (enzymatic activity/ volume) 25 U/L 5-34 Serum or plasma alanine aminotransferase measurement (enzymatic activity/volume ) 16 U/L 0-55 Serum or plasma protein measurement (mass/volume) 6.0 g/dL 6.4-8.2 Serum or plasma albumin measurement (mass/volume) 2.9 g/dL 3.2-4.5 Magnesium - 11/25/15 14:24 Magnesium 1.8 mg/dL 1.8-2.4 Serum or plasma troponin i.cardiac measurement (mass/volume) - 11/25/15 14:24 Serum or plasma troponin i.cardiac measurement (mass/volume) < ng/mL <0.30 Complete urinalysis with reflex to culture - 11/25/15 15:15 Urine color determination YELLOW NRG Urine clarity determination SLIGHTLY CLOUDY NRG Urine pH measurement by test strip 8 5- 9 Specific gravity of urine by test strip 1.015 1.016-1.022 Urine protein assay by test strip, semi-quantitative 2+ NEGATIVE Urine glucose detection by automated test strip NEGATIVE NEGATIVE Erythrocytes detection in urine sediment by light microscopy 3+ NEGATIVE Urine ketones detection by automated test strip NEGATIVE NEGATIVE Urine nitrite detection by test strip POSITIVE NEGATIVE Urine total bilirubin detection by test strip NEGATIVE NEGATIVE Urine urobilinogen measurement by automated test strip (mass/volume) NORMAL NORMAL Urine leukocyte esterase detection by dipstick 3+ NEGATIVE Automated urine sediment erythrocyte count by microscopy (number/high power field) [HPF] NRG Automated urine sediment leukocyte count by microscopy (number/high power field ) TNTC NRG Bacteria detection in urine sediment by light microscopy MODERATE NRG Crystals detection in urine sediment by light microscopy NONE NRG Casts detection in urine sediment by light microscopy NONE NRG Mucus detection in urine sediment by light microscopy NEGATIVE NRG Complete urinalysis with reflex to culture YES NRG Bacterial urine culture - 11/25/15 15:15 Bacterial urine culture [id number] NRG COLONY COUNT >100,000/ML NRG FTX;REPORT[place] 111[address], 9-23 NRG Bacterial susceptibility panel - 11/25/15 15:15 Gentamicin susceptibility test by minimum inhibitory concentration 4 NRG Trimethoprim/sulfamethoxazole susceptibility test by minimum inhibitoryconcentration 40 NRG Ampicillin susceptibility test by minimum inhibitory concentration R NRG Tobramycin susceptibility test by minimum inhibitory concentration 2 NRG Cefazolin susceptibility test by minimum inhibitory concentration R NRG Ceftriaxone susceptibility test by minimum inhibitory concentration <= NRG Ampicillin/sulbactam susceptibility test by minimum inhibitory concentration <= NRG Piperacillin/tazobactam susceptibility test by minimum inhibitory concentration <= NRG Ciprofloxacin susceptibility test by minimum inhibitory concentration >= NRG Meropenem susceptibility test by minimum inhibitory concentration <= NRG Nitrofurantoin susceptibility test by minimum inhibitory concentration 128 NRG Aztreonam susceptibility test by minimum inhibitory concentration <= NRG Blood lactic acid measurement (moles/volume) - 11/25/15 16:10 Blood lactic acid measurement (moles/volume) 1.1 mmol/L 0.5-2.0 Bacterial blood culture - 11/25/15 16:10 FREE TEXT EXTERNAL SEE COMMENT NRG QUANTITY OF GROWTH Isolated NR Bacterial blood culture [id number] [facility] Bacterial blood culture - 11/25/15 16:40 Bacterial blood culture NG NRG Capillary blood glucose measurement by glucometer (mass/volume) - 11/25/15 20: 46 Capillary blood glucose measurement by glucometer (mass/volume) 219 mg/dL 70-110 Capillary blood glucose measurement by glucometer (mass/volume) - 11/26/15 05: 46 Capillary blood glucose measurement by glucometer (mass/volume) 143 mg/dL 70-110 Complete blood count (CBC) with automated white blood cell (WBC) differential - 11/26/15 06:09 Blood leukocytes automated count (number/volume) 6.6 10*3/ uL 4.3-11.0 Blood erythrocytes automated count (number/volume) 3.54 10*6 /uL 4.35-5.85 Venous blood hemoglobin measurement (mass/volume) 9.8 g/dL 13.3-17.7 Blood hematocrit (volume fraction) 30 % 40-54 Automated erythrocyte mean corpuscular volume 85 [foz_us] 80-99 Automated erythrocyte mean corpuscular hemoglobin (mass per erythrocyte) 28 pg 25-34 Automated erythrocyte mean corpuscular hemoglobin concentration measurement ( mass/volume) 33 g/dL 32-36 Automated erythrocyte distribution width ratio 15.0 % 10.0-14.5 Automated blood platelet count (count/volume) 177 10*3/uL 130-400 Automated blood platelet mean volume measurement 10.3 [foz_ us] 7.4-10.4 Automated blood neutrophils/100 leukocytes 59 % 42-75 Automated blood lymphocytes/100 leukocytes 27 % 12-44 Blood monocytes/100 leukocytes 8 % 0-12 Automated blood eosinophils/100 leukocytes 5 % 0-10 Automated blood basophils/100 leukocytes 0 % 0-10 Blood neutrophils automated count (number/volume) 3.9 10*3 1.8-7.8 Blood lymphocytes automated count (number/volume) 1.8 10*3 1.0-4.0 Blood monocytes automated count (number/volume) 0.5 10*3 0.0-1.0 Automated eosinophil count 0.3 10*3/uL 0.0-0.3 Automated blood basophil count (count/volume) 0.0 10*3/uL 0.0-0.1 Whole blood basic metabolic panel - 11/26/15 06:09 Serum or plasma sodium measurement (moles/volume) 136 mmol/ L 135-145 Serum or plasma potassium measurement (moles/volume) 4.8 mmol/L 3.6-5.0 Serum or plasma chloride measurement (moles/volume) 103 mmol /L 98-107 Carbon dioxide 24 mmol/L 21-32 Serum or plasma anion gap determination (moles/volume) 9 mmol/L 5-14 Serum or plasma urea nitrogen measurement (mass/volume) 16 mg/dL 7-18 Serum or plasma creatinine measurement (mass/volume) 1.46 mg /dL 0.60-1.30 Serum or plasma urea nitrogen/creatinine mass ratio 11 NRG Serum or plasma creatinine measurement with calculation of estimated glomerular filtration rate 47 NRG Serum or plasma glucose measurement (mass/volume) 141 mg/dL 70-105 Serum or plasma calcium measurement (mass/volume) 8.8 mg/dL 8.5-10.1 Capillary blood glucose measurement by glucometer (mass/volume) - 11/26/15 11: 28 Capillary blood glucose measurement by glucometer (mass/volume) 237 mg/dL 70-110 Capillary blood glucose measurement by glucometer (mass/volume) - 11/26/15 15: 58 Capillary blood glucose measurement by glucometer (mass/volume) 223 mg/dL 70-110 Capillary blood glucose measurement by glucometer (mass/volume) - 11/26/15 21: 26 Capillary blood glucose measurement by glucometer (mass/volume) 213 mg/dL 70-110 Capillary blood glucose measurement by glucometer (mass/volume) - 11/27/15 05: 15 Capillary blood glucose measurement by glucometer (mass/volume) 113 mg/dL 70-110 Complete blood count (CBC) with automated white blood cell (WBC) differential - 11/27/15 07:04 Blood leukocytes automated count (number/volume) 6.1 10*3/ uL 4.3-11.0 Blood erythrocytes automated count (number/volume) 3.43 10*6 /uL 4.35-5.85 Venous blood hemoglobin measurement (mass/volume) 9.4 g/dL 13.3-17.7 Blood hematocrit (volume fraction) 29 % 40-54 Automated erythrocyte mean corpuscular volume 85 [foz_us] 80-99 Automated erythrocyte mean corpuscular hemoglobin (mass per erythrocyte) 27 pg 25-34 Automated erythrocyte mean corpuscular hemoglobin concentration measurement ( mass/volume) 32 g/dL 32-36 Automated erythrocyte distribution width ratio 14.9 % 10.0-14.5 Automated blood platelet count (count/volume) 179 10*3/uL 130-400 Automated blood platelet mean volume measurement 9.5 [foz_us ] 7.4-10.4 Automated blood neutrophils/100 leukocytes 56 % 42-75 Automated blood lymphocytes/100 leukocytes 28 % 12-44 Blood monocytes/100 leukocytes 9 % 0-12 Automated blood eosinophils/100 leukocytes 7 % 0-10 Automated blood basophils/100 leukocytes 0 % 0-10 Blood neutrophils automated count (number/volume) 3.4 10*3 1.8-7.8 Blood lymphocytes automated count (number/volume) 1.7 10*3 1.0-4.0 Blood monocytes automated count (number/volume) 0.6 10*3 0.0-1.0 Automated eosinophil count 0.4 10*3/uL 0.0-0.3 Automated blood basophil count (count/volume) 0.0 10*3/uL 0.0-0.1 Whole blood basic metabolic panel - 11/27/15 07:04 Serum or plasma sodium measurement (moles/volume) 137 mmol/ L 135-145 Serum or plasma potassium measurement (moles/volume) 4.0 mmol/L 3.6-5.0 Serum or plasma chloride measurement (moles/volume) 107 mmol /L 98-107 Carbon dioxide 22 mmol/L 21-32 Serum or plasma anion gap determination (moles/volume) 8 mmol/L 5-14 Serum or plasma urea nitrogen measurement (mass/volume) 11 mg/dL 7-18 Serum or plasma creatinine measurement (mass/volume) 1.00 mg /dL 0.60-1.30 Serum or plasma urea nitrogen/creatinine mass ratio 11 NRG Serum or plasma creatinine measurement with calculation of estimated glomerular filtration rate > NRG Serum or plasma glucose measurement (mass/volume) 99 mg/dL 70-105 Serum or plasma calcium measurement (mass/volume) 8.0 mg/dL 8.5-10.1 Complete urinalysis with reflex to culture - 11/27/15 09:30 Urine color determination YELLOW NRG Urine clarity determination CLEAR NRG Urine pH measurement by test strip 7 5- 9 Specific gravity of urine by test strip 1.010 1.016-1.022 Urine protein assay by test strip, semi-quantitative 2+ NEGATIVE Urine glucose detection by automated test strip NEGATIVE NEGATIVE Erythrocytes detection in urine sediment by light microscopy 2+ NEGATIVE Urine ketones detection by automated test strip NEGATIVE NEGATIVE Urine nitrite detection by test strip NEGATIVE NEGATIVE Urine total bilirubin detection by test strip NEGATIVE NEGATIVE Urine urobilinogen measurement by automated test strip (mass/volume) NORMAL NORMAL Urine leukocyte esterase detection by dipstick 3+ NEGATIVE Automated urine sediment erythrocyte count by microscopy (number/high power field) [HPF] NRG Automated urine sediment leukocyte count by microscopy (number/high power field ) [HPF] NRG Bacteria detection in urine sediment by light microscopy TRACE NRG Squamous epithelial cells detection in urine sediment by light microscopy 2-5 NRG Crystals detection in urine sediment by light microscopy NONE NRG Casts detection in urine sediment by light microscopy NONE NRG Mucus detection in urine sediment by light microscopy NEGATIVE NRG Complete urinalysis with reflex to culture YES NRG Bacterial urine culture - 11/27/15 09:30 URINE CULTURE RESULTS <10,000/ML NRG Capillary blood glucose measurement by glucometer (mass/volume) - 11/27/15 10: 33 Capillary blood glucose measurement by glucometer (mass/volume) 224 mg/dL 70-110 Bacterial blood culture - 12/21/15 00:30 Bacterial blood culture NG NRG Complete blood count (CBC) with automated white blood cell (WBC) differential - 12/21/15 23:05 Blood leukocytes automated count (number/volume) 6.4 10*3/ uL 4.3-11.0 Blood erythrocytes automated count (number/volume) 3.48 10*6 /uL 4.35-5.85 Venous blood hemoglobin measurement (mass/volume) 9.7 g/dL 13.3-17.7 Blood hematocrit (volume fraction) 29 % 40-54 Automated erythrocyte mean corpuscular volume 85 [foz_us] 80-99 Automated erythrocyte mean corpuscular hemoglobin (mass per erythrocyte) 28 pg 25-34 Automated erythrocyte mean corpuscular hemoglobin concentration measurement ( mass/volume) 33 g/dL 32-36 Automated erythrocyte distribution width ratio 15.1 % 10.0-14.5 Automated blood platelet count (count/volume) 191 10*3/uL 130-400 Automated blood platelet mean volume measurement 9.5 [foz_us ] 7.4-10.4 Automated blood neutrophils/100 leukocytes 59 % 42-75 Automated blood lymphocytes/100 leukocytes 25 % 12-44 Blood monocytes/100 leukocytes 10 % 0-12 Automated blood eosinophils/100 leukocytes 5 % 0-10 Automated blood basophils/100 leukocytes 0 % 0-10 Blood neutrophils automated count (number/volume) 3.8 10*3 1.8-7.8 Blood lymphocytes automated count (number/volume) 1.6 10*3 1.0-4.0 Blood monocytes automated count (number/volume) 0.7 10*3 0.0-1.0 Automated eosinophil count 0.4 10*3/uL 0.0-0.3 Automated blood basophil count (count/volume) 0.0 10*3/uL 0.0-0.1 Comprehensive metabolic panel - 12/21/15 23:05 Serum or plasma sodium measurement (moles/volume) 135 mmol/ L 135-145 Serum or plasma potassium measurement (moles/volume) 4.2 mmol/L 3.6-5.0 Serum or plasma chloride measurement (moles/volume) 101 mmol /L 98-107 Carbon dioxide 25 mmol/L 21-32 Serum or plasma anion gap determination (moles/volume) 9 mmol/L 5-14 Serum or plasma urea nitrogen measurement (mass/volume) 16 mg/dL 7-18 Serum or plasma creatinine measurement (mass/volume) 1.61 mg /dL 0.60-1.30 Serum or plasma urea nitrogen/creatinine mass ratio 10 NRG Serum or plasma creatinine measurement with calculation of estimated glomerular filtration rate 42 NRG Serum or plasma glucose measurement (mass/volume) 240 mg/dL 70-105 Serum or plasma calcium measurement (mass/volume) 8.7 mg/dL 8.5-10.1 Serum or plasma total bilirubin measurement (mass/volume) 0.5 mg/dL 0.1-1.0 Serum or plasma alkaline phosphatase measurement (enzymatic activity/volume) 83 U/L 40-136 Serum or plasma aspartate aminotransferase measurement (enzymatic activity/ volume) 18 U/L 5-34 Serum or plasma alanine aminotransferase measurement (enzymatic activity/volume ) 13 U/L 0-55 Serum or plasma protein measurement (mass/volume) 6.1 g/dL 6.4-8.2 Serum or plasma albumin measurement (mass/volume) 3.2 g/dL 3.2-4.5 Magnesium - 12/21/15 23:05 Magnesium 1.5 mg/dL 1.8-2.4 Serum or plasma lithium measurement (moles/volume) - 12/21/15 23:05 BNP level 97.2 pg/mL <100.0 Blood lactic acid measurement (moles/volume) - 12/21/15 23:35 Blood lactic acid measurement (moles/volume) 1.1 mmol/L 0.5-2.0 Bacterial blood culture - 12/21/15 23:35 Bacterial blood culture NG [facility] Bacteria identification in isolate by anaerobe culture - 03/17/16 09:31 Bacteria identification in isolate by anaerobe culture NOANA NRG Gram stain microscopy - 03/17/16 09:31 Bacteria identification in wound by culture - 03/17/16 09:31 Bacteria identification in wound by culture [id number] NR FREE TEXT EXTERNAL SENSITIVITY REPORTED 03/23/16 9:00 NRG QUANTITY OF GROWTH Scant Growth NRG Bacterial susceptibility panel - 03/17/16 09:31 Gentamicin susceptibility test by minimum inhibitory concentration R NRG Erythromycin susceptibility test by minimum inhibitory concentration >= NRG Vancomycin susceptibility test by minimum inhibitory concentration 1 NRG Ampicillin susceptibility test by minimum inhibitory concentration <= NRG Linezolid susceptibility test by minimum inhibitory concentration 2 NRG Bacteria identification in isolate by anaerobe culture - 05/12/16 08:35 Bacteria identification in isolate by anaerobe culture NG NR Gram stain microscopy - 05/12/16 08:35 GRAM STAIN RESULT NO BACTERIA OBSERVED NRG Bacteria identification in wound by culture - 05/12/16 08:35 Bacteria identification in wound by culture NG NR Fungus culture - 05/12/16 08:35 Fungus culture NG [facility] Automated blood complete blood count (hemogram) panel - 07/13/16 08:53 Blood leukocytes automated count (number/volume) 5.5 10*3/ uL 4.3-11.0 Blood erythrocytes automated count (number/volume) 4.15 10*6 /uL 4.35-5.85 Venous blood hemoglobin measurement (mass/volume) 11.6 g/dL 13.3-17.7 Blood hematocrit (volume fraction) 36 % 40-54 Automated erythrocyte mean corpuscular volume 87 [foz_us] 80-99 Automated erythrocyte mean corpuscular hemoglobin (mass per erythrocyte) 28 pg 25-34 Automated erythrocyte mean corpuscular hemoglobin concentration measurement ( mass/volume) 32 g/dL 32-36 Automated erythrocyte distribution width ratio 14.2 % 10.0-14.5 Automated blood platelet count (count/volume) 196 10*3/uL 130-400 Automated blood platelet mean volume measurement 10.4 [foz_ us] 7.4-10.4 PT panel in platelet poor plasma by coagulation assay - 07/13/16 08:53 Prothrombin time (PT) in platelet poor plasma by coagulation assay 14.6 s 12.2-14.7 INR in platelet poor plasma or blood by coagulation assay 1.2 0.8-1.4 Activated partial thromboplastin time (aPTT) in platelet poor plasma bycoagulation assay - 07/13/16 08:53 Activated partial thromboplastin time (aPTT) in platelet poor plasma bycoagulation assay 39 s 24-35 Methicillin resistant Staphylococcus aureus (MRSA) screening culture - 08:55 Methicillin resistant Staphylococcus aureus (MRSA) screening culture NEG NRG Encounters ACCT No. Visit Date/Time Discharge Status Pt. Type Provider Facility Loc./Unit Complaint [id number] 07/21/2016 08:45:00 2016 16:00:00 DIS Outpatient ROZ SOLIS MD [facility] WOUNDCARE [id number] 07/13/2016 08:04:00 2016 16:55:00 DIS Outpatient CAROL MARTINEZ MD [facility] CATH NON HEALING WOUND,ABNORMAL NICK,CAD,HTN ,HLP [id number] 03/24/2016 10:10:00 2016 00:01:00 DIS Outpatient TAMIKA WHITE DO [facility] RICHIEE TYPE 2 DIABETES [id number] 06/09/2016 08:41:00 2016 00:01:00 DIS Outpatient ROZ SOLIS MD [facility] WOUNDCARE [id number] 01/11/2016 10:50:00 2015 16:00:00 DIS Outpatient PRADIP MADISON MD [facility] WOUNDCARE [id number] 12/21/2015 22:26:00 2015 00:43:00 DIS Emergency JOHANNA MCKENZIE DO Patricia [facility] ER CONGESTION [id number] 12/01/2015 09:11:00 2015 08:43:00 DIS Outpatient PRADIP MADISON MD [facility] WOUNDCARE [id number] 11/25/2015 15:53:00 2015 13:50:00 DIS Inpatient TAMIKA WHITE DO [facility] 4TH UTI,CHRONIC RENAL FAILURE [id number] 09/21/2015 10:48:00 2015 00:01:00 DIS Outpatient PRADIP MADISON MD [id number] 06/11/2015 11:23:00 2015 13:34:00 DIS Inpatient TAMIKA WHITE DO [facility] 4TH RAPID RESPONSE [id number] 05/28/2015 14:30:00 2015 10:45:00 DIS Inpatient MARÍA BERMUDEZ MD [facility] IRF PNEUMONIA,FLUID OVERFLOW [id number] 05/22/2015 21:33:00 2015 14:20:00 DIS Inpatient TAMIKA WHITE DO [facility] 4TH PNEUMONIA,VOLUME OVERLOAD [id number] 05/14/2015 00:15:00 2015 16:00:00 DIS Inpatient TAMIKA WHITE DO [facility] 4TH FEVER,PNEUMONIA [id number] 03/02/2015 09:10:00 2015 00:01:00 DIS Outpatient PRADIP MADISON MD [facility] WOUNDCARE [id number] 02/24/2015 20:40:00 2014 06:45:00 DIS Outpatient PRASHANTH SPEAR APRN [facility] SLEEP SNORING,ISCHEMIC HEART DISEASE,EDS [id number] 01/06/2015 09:54:00 2014 23:59:59 CLS Outpatient CAROL MARTINEZ MD [facility] CARD CAD,HTN,HLP,SOB [id number] 12/01/2014 10:51:00 2014 00:01:00 DIS Outpatient PRADIP MADISON MD [facility] WOUNDCARE [id number] 11/28/2014 10:47:00 2014 23:59:59 CLS Outpatient TAMIKA WHITE DO [facility] RAD SOA,SPIT UP STUFF [id number] 11/18/2014 11:58:00 2014 23:59:59 CLS Outpatient PRADIP MADISON MD [facility] RAD PAD, VENOUS LEG ULCER [id number] 10/14/2014 09:42:00 2014 23:59:59 CLS Outpatient PRADIP MADISON MD [facility] LAB R LEG WOUND [id number] 09/01/2014 11:00:00 2014 00:01:00 DIS Outpatient PRADIP MADISON MD [facility] WOUNDCARE [id number] 07/30/2014 05:47:00 2014 10:57:00 DIS Inpatient PERLA LEE MD [facility] ICU LEFT CAROTID STENOSIS [id number] 07/24/2014 09:28:00 2014 23:59:59 CLS Outpatient PERLA LEE MD [facility] PREOP LEFT CAROTID STENOSIS [id number] 07/10/2014 11:51:00 2014 23:59:59 CLS Outpatient JESSICA MEJIA MD [facility] CARD CAD,DM,HYPERLIPADEMA [id number] 07/03/2014 11:50:00 2014 23:59:59 CLS Outpatient JESSICA MEJIA MD [facility] CARD CAD,CAROTID ARTERY CALCIFICATION, DM [id number] 06/12/2014 10:44:00 2014 23:59:59 CLS Outpatient TAMIKA WHITE DO [facility] RAD CAROTID BRUIT,CAD [id number] 06/11/2014 10:38:00 2014 23:59:59 CLS Outpatient PRADIP MADISON MD [facility] RAD WOUND RT LEG [id number] 01/20/2014 08:32:00 2013 11:40:00 DIS Outpatient GE ASCENCIO MD [facility] SDC DIARRHEA [id number] 01/16/2014 07:58:00 2013 23:59:59 CLS Outpatient GE ASCENCIO MD [facility] PREOP DIARRHEA [id number] 09/25/2013 14:15:00 2013 14:56:00 DIS Outpatient TAMIKA WHITE DO [facility] WOUNDCARE RT LEG ULCER [id number] 09/29/2013 19:15:00 2013 12:00:00 DIS Inpatient ESTELA PATEL MD [facility] CSD ACUTE RENAL INSUFFICIENCY; NEAR SYNCOPAL EVENT [id number] 09/07/2013 11:30:00 2013 12:52:00 DIS Emergency REZA SPENCER CONTRERAS [facility] ER R LEG WOUND [id number] 11/07/2012 13:26:00 2012 15:38:00 DIS Outpatient TAMIKA WHITE DO [facility] REHAB STATIS DERMATITIS, SWELLING OF LEGS [id number] 06/23/2016 11:15:00 PEN Preadmit TAMIKA WHITE DO [facility] DSME TYPE 2 DIABETES [id number] 03/22/2016 08:59:00 ACT Outpatient ROZ SOLIS MD [facility] RAD L97.212 [id number] 01/20/2016 11:50:00 ACT Outpatient PRASHANTH SPEAR APRN [facility] RT SOB [id number] 12/21/2015 13:19:00 ACT Outpatient ANGELA BUSCH [facility] CARD CAD,HTN,HLP [id number] 12/03/2015 09:20:00 ACT Outpatient PRADIP MADISON MD [facility] RAD ATHEROSCLEROSIS OF [place] ARTERIES OF RT LEG [id number] 11/23/2015 11:52:00 ACT Outpatient PRADIP MADISON MD [facility] LAB NON PRESSURE CHRONIC ULCER OF RT CALF W/ FAT LAYER [id number] 11/13/2015 09:04:00 ACT Outpatient PRASHANTH SPEAR APRN [facility] RAD SOB [id number] 11/06/2015 10:29:00 ACT Outpatient [employer] [facility] QUICK [id number] 10/13/2015 08:25:00 ACT Outpatient MICHELLE JONES, CAROL Recio [facility] RAD PERIPHERAL VASCULAR DIEASE,LEG PAIN BILAT [id number] 05/19/2015 15:42:00 PEN Preadmit TAMIKA WHITE DO SWB [id number] 05/11/2015 10:53:00 ACT Outpatient PRADIP MADISON MD [facility] WOUNDCARE [id number] 12/18/2014 13:09:00 ACT Inpatient TAMIKA WHITE DO [facility] 4TH ACUTE ON CHRONIC RENAL INSUFFICIENCY UTI [id number] 06/09/2014 08:28:00 Document Registration [id number] 06/09/2014 08:28:00 Document Registration [id number] 06/06/2011 10:02:00 Document Registration [id number] 07/22/2010 15:49:00 Document Registration [id number] 08/12/2009 10:28:00 Document Registration
== END 2016-09-13 00:19 | disposition home or self-care (01) ==
LOC: EDUNIT# 20:20 → ER 20:22
DX: R06.09 Other forms of dyspnea (principal); R53.1 Weakness; E83.42 Hypomagnesemia; J44.9 Chronic obstructive pulmonary disease, unspecified; I25.2 Old myocardial infarction; I10 Essential (primary) hypertension; G47.33 Obstructive sleep apnea (adult) (pediatric); K21.9 Gastro-esophageal reflux disease without esophagitis; M19.90 Unspecified osteoarthritis, unspecified site; E11.621 Type 2 diabetes mellitus with foot ulcer; L97.901 Non-pressure chronic ulcer of unspecified part of unspecified lower leg limited to breakdown of skin; L97.902 Non-pressure chronic ulcer of unspecified part of unspecified lower leg with fat layer exposed; E11.40 Type 2 diabetes mellitus with diabetic neuropathy, unspecified; I73.9 Peripheral vascular disease, unspecified; E78.00 Pure hypercholesterolemia, unspecified; I25.10 Atherosclerotic heart disease of native coronary artery without angina pectoris; Z95.5 Presence of coronary angioplasty implant and graft; Z99.81 Dependence on supplemental oxygen; Z79.4 Long term (current) use of insulin; Z79.82 Long term (current) use of aspirin; Z79.01 Long term (current) use of anticoagulants; Z82.49 Family history of ischemic heart disease and other diseases of the circulatory system
CPT/HCPCS: 36415; 71020; 80053; 83735; 83880; 84484; 85025; 86141; 93005; 93041; 94640

== ENCOUNTER 2016-09-23 16:17 | Emergency (ER) | payer MEDICARE ==
[~2016-09-23] VITALS: Ht 172.7 cm; Wt 151.1 kg
[~2016-09-23 16:17] MED LIST changes: +MAGN400T29 PO
--- NOTE | 2016-09-23 17:35 | ED EENT ---
History of Present Illness General Chief Complaint: Eye Problems Stated Complaint: PROBLEM W RT EYE Nursing Triage Note: PT REPORTS HE WAS IN [place] AT THE [facility] AND THEY PUT SOMETHING IN HIS EYE. PT REPORTS PAIN TO R EYE AFTER. 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 Britton, in [place] today. Dr. Britton has been treating the patient for his diabetic condition requiring shots to the eye periodically which he received today. The patient developed pain in his eye after the topical anesthetic resolved earlier today. Patient denies loss of visual acuity from his right eye. Allergies and Home Medications Allergies Coded Allergies: PING Inhibitors (Verified Allergy, Mild, 05/16/15) UNCONTROLLED COUGHING amoxicillin (Verified Allergy, Mild, itching (PT HAS RECEIVED CEFEPIME & ANCEF IN THE PAST), 11/25/15) Home Medications Apixaban 5 Mg Tablet, 5 MG PO BID, (Reported) Aspirin 81 Mg Tablet.dr, 81 MG PO DAILY, (Reported) Atorvastatin Calcium 10 Mg Tablet, 10 MG PO HS, (Reported) Furosemide 40 Mg Tablet, 40 MG PO DAILY, (Reported) Gabapentin 300 Mg Capsule, 300 MG PO BID, (Reported) Hydrocodone/Acetaminophen 1 Each Tablet, 1 TAB PO DAILY, (Reported) Insulin Aspart 300 Units/3 Ml Solution, 4-12 UNITS SC ACHS, (Reported) Insulin Detemir 100 Unit/1 Ml Insuln.pen, 40 UNITS SC BID, (Reported) Magnesium Oxide 400 Mg Tablet, 400 MG PO BID, #10 Prescribed by: LIZET FRAZIER on 09/13/16 0803 Multivitamin 1 Each Tablet, 1 TAB PO DAILY, (Reported) Ranitidine HCl 150 Mg Tablet, 150 MG PO BID, (Reported) Review of Systems Constitutional: No chills, No fever Eyes: Denies Blindness, Denies Decreased Acuity, Foreign Body Sensation, Pain, Denies Photophobia Ears: Denies Dizziness, Denies Tinnitus Nose: denies congestion, denies epistaxis Mouth: no symptoms reported Throat: no symptoms reported Respiratory: no symptoms reported Cardiovascular: no symptoms reported Gastrointestinal: no symptoms reported Musculoskeletal: no symptoms reported Skin: no symptoms reported Neurological: No Symptoms Reported Immunological/Allergic: no symptoms reported Past Rzxjznt-Vhlzlz-Lohuuo Hx Patient Social History Alcohol Use: Denies Use Recreational Drug Use: No Smoking Status: Never a Smoker Recent Foreign Travel: No Contact w/Someone Who Travel: No Recent Infectious Disease Expo: No Recent Hopitalizations: Yes (11/27/15) Immunizations Up To Date Tetanus Booster (TDap): Less than 5yrs PED Vaccines UTD: Yes Seasonal Allergies Seasonal Allergies: No Surgeries HX Surgeries: Yes Surgeries: Cardiac, Coronary Stent, Orthopedic, Tonsillectomy, Vascular Surgery Respiratory Hx Respiratory Disorders: Yes (HAS CPAP BUT DOESN'T USE IT) Respiratory Disorders: Sleep Apnea, COPD Cardiovascular Hx Cardiac Disorders: Yes Cardiac Disorders: Chronic Edema/Swelling, Coronary Artery Disease, Heart Attack, High Cholesterol, Hypertension, Irregular Heartbeat, Peripheral Vascular Neurological Hx Neurological Disorders: Yes Neurological Disorders: Neuropathy Reproductive System Hx Reproductive Disorders: No Sexually Transmitted Disease: No HIV/AIDS: No Genitourinary Hx Genitourinary Disorders: No Gastrointestinal Hx Gastrointestinal Disorders: Yes Gastrointestinal Disorders: Gastroesophageal Reflux Musculoskeletal Hx Musculoskeletal Disorders: Yes (R TKR) Musculoskeletal Disorders: Arthritis Endocrine Hx Endocrine Disorders: Yes Endocrine Disorders: Diabetes, Insulin dep HEENT HX ENT Disorders: No Loss of Vision: Denies Hearing Impairment: Denies, Hard of Hearing Cancer Hx Cancer: No Psychosocial Hx Psychiatric Problems: No Integumentary HX Skin/Integumentary Disorder: Yes (Chronic diabetic ulcers bilateral lower extremities) Blood Transfusions Hx Blood Disorders: No Adverse Reaction to a Blood Tr: No Reviewed Nursing Assessment Reviewed/Agree w Nursing PMH: Yes Family Medical History Significant Family History: Heart Disease, Stroke, Vascular Disease Family Medial History: Family history: Arthritis 19 FATHER 19 MOTHER Headache 19 FATHER 19 MOTHER Hearing loss 19 MOTHER History of - anemia 19 MOTHER Stroke 19 FATHER No Family History of: AIDS Abdominal aortic aneurysm Abdominal aortic aneurysm Leeds's disease Leeds's disease Alcoholism Alzheimer's disease Aphasia Cancer Cancer of colon Cataract Chest pain Congenital heart disease Congestive heart failure Cystic fibrosis Dementia Dysphagia Family history: Allergy Family history: Alzheimer's disease Family history: Asthma Family history: Breast disease Family history: Cardiovascular disease Family history: Coronary thrombosis Family history: Diabetes mellitus Family history: Gastrointestinal disease Family history: Glaucoma Family history: Hypertension Family history: Osteoporosis Family history: Thyroid disorder Heart disease Hereditary disease History of - disorder History of - respiratory disease History of drug abuse Human immunodeficiency virus (HIV) seropositivity Hypercholesterolemia Infertile Kidney disease Malignant neoplasm of lung Myocardial infarction Parkinson's disease Prostate cancer Psychotic disorder Seizure disorder Thyroid disease Tuberculosis Tuberculosis Visual impairment Physical Exam Vital Signs Vital Sign - Last 12Hours 09/23/16 16:33 Temp 96.7 Pulse 81 Resp 18 B/P (MAP) 166/75 Pulse Ox 93 O2 Delivery Room Air General Appearance: WD/WN, mild distress Eyes: bilateral eye EOMI, bilateral eye PERRL, bilateral eye normal inspection , bilateral eye other (eversion of the lids demonstrated no evidence of foreign body. Fluorescein examination demonstrated no evidence of foreign body or corneal abrasion.) Nose: normal inspection Neurologic/Psychiatric: no motor/sensory deficits Skin: normal color Progress/Results/Core Measures Results/Orders My Orders Orders - ANN MARIE DENG MD Hydrocodone/Apap 5/325 Tablet (Lortab 5 (09/23/16 17:45) Vital Signs/I&O Vital Sign - Last 12Hours 09/23/16 16:33 Temp 96.7 Pulse 81 Resp 18 B/P (MAP) 166/75 Pulse Ox 93 O2 Delivery Room Air Blood Pressure Mean: 105 Progress Note : Time: 17:37 Progress Note After negative fluorescein exam and no evidence of foreign body with eversion of the lids patient was treated with topical anesthetic to the cornea with good resolution of his discomfort. I visited with his farm products shipper, Dr. Ruiz, who stated he believes the pain was due to the Betadine that they use to clean the patient's eye prior to injection. His recommendation was that the patient use artificial tears every 2 hours to his right eye and that I give him pain medication overnight. Dr. Britton was kind enough to request that the patient call him through [facility] access number he had any further problems or questions tonight. I asked the patient and his son return the Emergency Department if they have any further discomfort or other acute problems and were unable to reach Dr. Britton. Departure Impression Impression: Primary Impression: Chemical conjunctivitis of right eye Disposition: 01 HOME, SELF-CARE Condition: Improved Departure-Patient Inst. Decision time for Depature: 17:39 Referrals: TAMIKA WHITE DO (PCP/Family) Primary Care Physician Patient Instructions: Chemical Eye Injury (DC) Add. Discharge Instructions: Artificial tears to the right eye every 2 hours tonight. Vicodin for pain. Follow-up with Dr. Britton if the pain recurs by calling Fidelina Cornell at . Come back to the emergency department if unable to reach Dr. Britton should he have further pain or problems All discharge instructions reviewed with patient and/or family. Voiced understanding. ANN MARIE DENG MD Sep 23, 2016 17:35
[2016-09-23] MEDS ORDERED: HYDROcodone/APAP 5 MG/325 MG (LORTAB) TAB PO ONE (17:45)
[2016-09-23 17:50] VITALS: BP 166/75
[2016-09-23] MEDS ORDERED: TETRACAINE 0.5% OPHTH SOLN 4 ML BTL (SINGLE DOSE ONLY) OP ONE (18:00)
[2016-09-23] MEDS ORDERED: FLUORESCEIN (FLUOR-I-STRIPS) 1 MG STRP OU ONE (18:00)
[2016-09-23] MEDS ORDERED: FLUORESCEIN (FLUOR-I-STRIPS) 1 MG STRP ONE (18:39)
[2016-09-23] MEDS ORDERED: TETRACAINE 0.5% OPHTH SOLN 4 ML BTL (SINGLE DOSE ONLY) ONE (18:39)
== END 2016-09-23 17:55 | disposition home or self-care (01) ==
LOC: EDUNIT# 16:17 → ER 16:19
DX: H10.211 Acute toxic conjunctivitis, right eye (principal); G47.30 Sleep apnea, unspecified; J44.9 Chronic obstructive pulmonary disease, unspecified; I25.10 Atherosclerotic heart disease of native coronary artery without angina pectoris; I25.2 Old myocardial infarction; E78.00 Pure hypercholesterolemia, unspecified; I10 Essential (primary) hypertension; E11.40 Type 2 diabetes mellitus with diabetic neuropathy, unspecified; E11.621 Type 2 diabetes mellitus with foot ulcer; L97.519 Non-pressure chronic ulcer of other part of right foot with unspecified severity; L97.529 Non-pressure chronic ulcer of other part of left foot with unspecified severity; I73.9 Peripheral vascular disease, unspecified; K21.9 Gastro-esophageal reflux disease without esophagitis; M17.11 Unilateral primary osteoarthritis, right knee; Z82.49 Family history of ischemic heart disease and other diseases of the circulatory system; Z96.651 Presence of right artificial knee joint; Z79.01 Long term (current) use of anticoagulants; Z79.82 Long term (current) use of aspirin; Z79.4 Long term (current) use of insulin; Z95.5 Presence of coronary angioplasty implant and graft; Z90.89 Acquired absence of other organs
CPT/HCPCS: 99283

== ENCOUNTER → 2016-11-22 | Outpatient (CLI) | payer MEDICARE | LOC: CARD 11:55 | PROVIDERS: ATTEND Internal Medicine Cardiovascular Disease | DX: I25.10 Atherosclerotic heart disease of native coronary artery without angina pectoris (principal); I65.23 Occlusion and stenosis of bilateral carotid arteries; I10 Essential (primary) hypertension; E78.2 Mixed hyperlipidemia; R06.02 Shortness of breath | CPT/HCPCS: 93225; 93226 ==

== ENCOUNTER 2017-01-12 12:35 | Outpatient (RCR) | payer MEDICARE ==
[~2017-01-12 12:35] MED LIST changes: +ACHD5005 PO; -HYDR-3812 PO; +QUIN20TA16 PO
== END 2017-04-12 | disposition home or self-care (01) ==
LOC: LAB 12:35
PROVIDERS: ATTEND Family Medicine
DX: N39.0 Urinary tract infection, site not specified (principal); R31.9 Hematuria, unspecified
CPT/HCPCS: 87077; 87088; 87186

== ENCOUNTER → 2017-02-16 | Outpatient (CLI) | payer MEDICARE ==
[~2017-02-16] MED LIST changes: -ACHD5005 PO; +HYDR-3812 PO
--- NOTE | 2017-02-16 14:08 | Diagnostic Imaging Report ---
PROCEDURE: CT abdomen and pelvis without contrast. TECHNIQUE: Multiple contiguous axial images were obtained through the abdomen and pelvis without the use of intravenous contrast. INDICATION: Hematuria. FINDINGS: The lung bases are clear. The liver demonstrates diffuse fatty steatosis. The gallbladder demonstrates no calcified stones. The spleen is not enlarged. The pancreas and the adrenals appear unremarkable. The kidneys demonstrate no hydronephrosis. No urinary tract stones are seen. Diverticulosis seen in the sigmoid colon. No diverticulitis. The appendix is normal. No bowel obstruction. Prominent arteriovascular calcifications are seen in the abdomen and pelvis. The abdominal aorta is normal in caliber. No para-aortic significantly enlarged lymph node is seen. The osseous structures demonstrate degenerative changes in the lower thoracic spine and in the SI joints. IMPRESSION: 1. No urinary tract stones or hydronephrosis. 2. Hepatic steatosis. Dictated by: Dictated on workstation # [id number]
== END ==
LOC: RAD 12:06
PROVIDERS: ATTEND Urology
DX: K76.0 Fatty (change of) liver, not elsewhere classified (principal)
CPT/HCPCS: 74176

== ENCOUNTER 2017-07-28 13:18 | Inpatient (IN) | payer MEDICARE ==
[~2017-07-28] VITALS: Ht 172.7 cm; Wt 157.9 kg
[~2017-07-28 13:18] MED LIST changes: +ACHD5005 PO; -HYDR-3812 PO
[2017-07-28] MEDS ORDERED: ONDANSETRON 4 MG/2 ML (SDV) Z0FRAN ONE (13:25)
[2017-07-28] MEDS ORDERED: IBUPROFEN 800 MG (MOTRIN) TAB PO ONE (13:30)
[2017-07-28] MEDS ORDERED: ONDANSETRON 4 MG/2 ML (SDV) Z0FRAN IVP ONE (13:30)
[2017-07-28] MEDS ORDERED: NS IV 1000 ML 1,000 ML IV SCH ×2 (13:30→17:15)
--- NOTE | 2017-07-28 13:33 | ED General ---
General Chief Complaint: Abdominal/GI Problems Stated Complaint: FEVER,WEAK Source of Information: Patient Exam Limitations: No Limitations History of Present Illness Date Seen by Provider: July 28, 2017 Time Seen by Provider: 13:30 Initial Comments we had no bedsto ER with reports of fever and generalized weakness. He states he felt fine this morning, got up and drink some coffee, ate toast and iniguez and eggs. Shortly after that he vomited. He's had rigors since then and arrives to ER per EMS from home with a fever of 102.5. he does have wound care at home for chronic lower extremity wounds and has compressive wraps in place. Also reports recent increased cough and "snotty nose" with history of COPD. Timing/Duration: 4-6 Hours Severity: Moderate Associated Systoms: Nausea/Vomiting Allergies and Home Medications Allergies Coded Allergies: PING Inhibitors (Verified Allergy, Mild, 05/16/15) UNCONTROLLED COUGHING amoxicillin (Verified Allergy, Mild, itching (PT HAS RECEIVED CEFEPIME & ANCEF IN THE PAST), 11/25/15) Home Medications Apixaban 5 Mg Tablet, 5 MG PO BID, (Reported) Aspirin 81 Mg Tablet.dr, 81 MG PO DAILY, (Reported) Atorvastatin Calcium 10 Mg Tablet, 10 MG PO HS, (Reported) Furosemide 40 Mg Tablet, 40 MG PO DAILY, (Reported) Gabapentin 300 Mg Capsule, 300 MG PO BID, (Reported) Hydrocodone Bit/Acetaminophen 1 Each Tablet, 1 TAB PO DAILY, (Reported) Insulin Aspart 300 Units/3 Ml Solution, 4-12 UNITS SC ACHS, (Reported) Insulin Detemir 100 Unit/1 Ml Insuln.pen, 40 UNITS SC BID, (Reported) Magnesium Oxide 400 Mg Tablet, 400 MG PO BID Prescribed by: LIZET FRAZIER on 09/13/16 0803 Multivitamin 1 Each Tablet, 1 TAB PO DAILY, (Reported) Ranitidine HCl 150 Mg Tablet, 150 MG PO BID, (Reported) Patient Home Medication List Home Medication List Reviewed: Yes Review of Systems Constitutional: see HPI, chills, fever, weakness EENTM: see HPI Respiratory: no symptoms reported Genitourinary: no symptoms reported Musculoskeletal: no symptoms reported Skin: no symptoms reported Psychiatric/Neurological: No Symptoms Reported Hematologic/Lymphatic: No Symptoms Reported Immunological/Allergic: no symptoms reported Past Qoeyoxa-Tbzbkm-Rihycc Hx Patient Social History Recent Hopitalizations: Yes (11/27/15) Immunizations Up To Date Tetanus Booster (TDap): Less than 5yrs PED Vaccines UTD: Yes Seasonal Allergies Seasonal Allergies: No Past Medical History Surgeries: Yes Cardiac, Coronary Stent, Orthopedic, Tonsillectomy, Vascular Surgery Respiratory: Yes (HAS CPAP BUT DOESN'T USE IT) Sleep Apnea, COPD Currently Using CPAP: Yes Currently Using BIPAP: No Cardiac: Yes Chronic Edema/Swelling, Coronary Artery Disease, Heart Attack, High Cholesterol , Hypertension, Irregular Heartbeat, Peripheral Vascular Neurological: Yes Neuropathy Reproductive Disorders: No Sexually Transmitted Disease: No HIV/AIDS: No Genitourinary: No Gastrointestinal: Yes Gastroesophageal Reflux Musculoskeletal: Yes (R TKR) Arthritis Endocrine: Yes Diabetes, Insulin dep HEENT: No Loss of Vision: Denies Hearing Impairment: Denies, Hard of Hearing Cancer: No Psychosocial: No Integumentary: Yes (Chronic diabetic ulcers bilateral lower extremities) Blood Disorders: No Adverse Reaction/Blood Tranf: No Family Medical History Family history: Arthritis 19 FATHER 19 MOTHER Headache 19 FATHER 19 MOTHER Hearing loss 19 MOTHER History of - anemia 19 MOTHER Stroke 19 FATHER No Family History of: AIDS Abdominal aortic aneurysm Abdominal aortic aneurysm Kaz's disease [place]'s disease Alcoholism Alzheimer's disease Aphasia Cancer Cancer of colon Cataract Chest pain Congenital heart disease Congestive heart failure Cystic fibrosis Dementia Dysphagia Family history: Allergy Family history: Alzheimer's disease Family history: Asthma Family history: Breast disease Family history: Cardiovascular disease Family history: Coronary thrombosis Family history: Diabetes mellitus Family history: Gastrointestinal disease Family history: Glaucoma Family history: Hypertension Family history: Osteoporosis Family history: Thyroid disorder Heart disease Hereditary disease History of - disorder History of - respiratory disease History of drug abuse Human immunodeficiency virus (HIV) seropositivity Hypercholesterolemia Infertile Kidney disease Malignant neoplasm of lung Myocardial infarction Parkinson's disease Prostate cancer Psychotic disorder Seizure disorder Thyroid disease Tuberculosis Tuberculosis Visual impairment Heart Disease, Stroke, Vascular Disease Physical Exam Vital Signs Vital Signs - First Documented 07/28/17 13:20 Temp 102.3 Pulse 100 Resp 18 B/P (MAP) 200/100 (133) Pulse Ox 90 O2 Delivery Nasal Cannula O2 Flow Rate 3.00 Capillary Refill : General Appearance: No Apparent Distress, WD/WN, Obese, Other (actively vomiting) Eyes: Bilateral Eye Normal Inspection, Bilateral Eye PERRL, Bilateral Eye EOMI HEENT: PERRL/EOMI, TMs Normal Neck: Full Range of Motion, Normal Inspection Respiratory: No Accessory Muscle Use, No Respiratory Distress Cardiovascular: Normal Peripheral Pulses, Irregularly Irregular, Tachycardia, Other (121) Gastrointestinal: Normal Bowel Sounds, Non Tender, Soft Extremity: Normal Capillary Refill, Other (dressings remain in place to bilateral large cavities. I did not remove the dressings to examine the feet.) Neurologic/Psychiatric: Alert, Oriented x3 Skin: Normal Color, Warm/Dry Focused Exam Lactate Level 07/28/17 13:29: Lactic Acid Level 2.21*H 07/28/17 15:38: Lactic Acid Level 1.61 Lactic Acid Level Progress/Results/Core Measures Suspected Sepsis SIRS Temperature: Pulse: Respiratory Rate: Laboratory Tests 07/28/17 13:29: White Blood Count 12.9H 07/28/17 17:38: White Blood Count 5.5 Blood Pressure / Mean: 07/28/17 13:29: Lactic Acid Level 2.21*H 07/28/17 15:38: Lactic Acid Level 1.61 Laboratory Tests 07/28/17 13:29: Creatinine 1.49H, INR Comment 1.3, Platelet Count 238, Total Bilirubin 0.7 07/28/17 17:38: Creatinine 1.56H, Platelet Count 172, Total Bilirubin 0.9 Results/Orders Lab Results Laboratory Tests Test 07/28/17 13:29 07/28/17 14:53 07/28/17 15:38 07/28/17 17:38 Range/Units White Blood Count 12.9 H 5.5 4.3-11.0 10^3/uL Red Blood Count 4.13 L 4.07 L 4.35-5.85 10^6/uL Hemoglobin 11.3 L 11.1 L 13.3-17.7 G/DL Hematocrit 36 L 35 L 40-54 % Mean Corpuscular Volume 86 87 80-99 FL Mean Corpuscular Hemoglobin 27 27 25-34 PG Mean Corpuscular Hemoglobin Concent 32 31 L 32-36 G/DL Red Cell Distribution Width 15.5 H 15.4 H 10.0-14.5 % Platelet Count 238 172 130-400 10^3/uL Mean Platelet Volume 9.9 10.9 H 7.4-10.4 FL Neutrophils (%) (Auto) 88 H 88 H 42-75 % Lymphocytes (%) (Auto) 6 L 10 L 12-44 % Monocytes (%) (Auto) 5 2 0-12 % Eosinophils (%) (Auto) 1 0 0-10 % Basophils (%) (Auto) 0 0 0-10 % Neutrophils # (Auto) 11.4 H 4.9 1.8-7.8 X 10^3 Lymphocytes # (Auto) 0.7 L 0.5 L 1.0-4.0 X 10^3 Monocytes # (Auto) 0.7 0.1 0.0-1.0 X 10^3 Eosinophils # (Auto) 0.1 0.0 0.0-0.3 10^3/uL Basophils # (Auto) 0.0 0.0 0.0-0.1 10^3/uL Neutrophils % (Manual) 92 % Lymphocytes % (Manual) 3 % Monocytes % (Manual) 1 % Eosinophils % (Manual) 2 % Basophils % (Manual) 0 % Band Neutrophils 2 % Blood Morphology Comment NORMAL Prothrombin Time 16.1 H 12.2-14.7 SEC INR Comment 1.3 0.8-1.4 Sodium Level 139 138 135-145 MMOL/L Potassium Level 4.7 3.9 3.6-5.0 MMOL/L Chloride Level 100 101 98-107 MMOL/L Carbon Dioxide Level 30 27 21-32 MMOL/L Anion Gap 9 10 5-14 MMOL/L Blood Urea Nitrogen 21 H 23 H 7-18 MG/DL Creatinine 1.49 H 1.56 H 0.60-1.30 MG/DL Estimat Glomerular Filtration Rate 46 44 BUN/Creatinine Ratio 14 15 Glucose Level 149 H 101 70-105 MG/DL Lactic Acid Level 2.21 *H 1.61 0.50-2.00 MMOL/L Calcium Level 9.2 8.4 L 8.5-10.1 MG/DL Total Bilirubin 0.7 0.9 0.1-1.0 MG/DL Aspartate Amino Transf (AST/SGOT) 30 48 H 5-34 U/L Alanine Aminotransferase (ALT/SGPT) 17 20 0-55 U/L Alkaline Phosphatase 85 79 40-136 U/L Total Protein 7.2 5.9 L 6.4-8.2 GM/DL Albumin 3.4 3.1 L 3.2-4.5 GM/DL Urine Color YELLOW Urine Clarity CLEAR Urine pH 5 5-9 Urine Specific [place] 1.015 L 1.016-1.022 Urine Protein 2+ H NEGATIVE Urine Glucose (UA) NEGATIVE NEGATIVE Urine Ketones NEGATIVE NEGATIVE Urine Nitrite NEGATIVE NEGATIVE Urine Bilirubin NEGATIVE NEGATIVE Urine Urobilinogen NORMAL NORMAL MG/DL Urine Leukocyte Esterase 2+ H NEGATIVE Urine RBC (Auto) 4+ H NEGATIVE Urine RBC 5-10 H /HPF Urine WBC 5-10 H /HPF Urine Squamous Epithelial Cells 5-10 /HPF Urine Crystals PRESENT H /LPF Urine Amorphous Sediment FEW TAJ URATES H /LPF Urine Bacteria FEW H /HPF Urine Casts NONE /LPF Urine Mucus NEGATIVE /LPF Urine Culture Indicated YES Troponin I < 0.30 <0.30 NG/ML Test 07/28/17 18:12 Range/Units Blood Gas Puncture Site RT RAD Blood Gas Patient Temperature 99.6 Arterial Blood pH 7.30 *L 7.37-7.43 Arterial Blood Partial Pressure CO2 59 H 35-45 MMHG Arterial Blood Partial Pressure O2 105 H 79-93 MMHG Arterial Blood HCO3 28 H 23-27 MMOL/L Arterial Blood Total CO2 29.5 21.0-31.0 MMOL/L Arterial Blood Oxygen Saturation 98 94-100 % Arterial Blood Base Excess 2.0 -2.5-2.5 MMOL/L Aram Test NA Blood Gas Ventilator Setting YES Blood Gas Inspired Oxygen 100% Micro Results Microbiology 07/28/17 Urine Culture - Preliminary, Resulted Sent To [facility] My Orders Orders - JOAN RAGLAND APRN Cbc With Automated Diff (07/28/17 13:21) Comprehensive Metabolic Panel (07/28/17 13:21) Ua Culture If Indicated (07/28/17 13:21) Chest 1 View, Ap/Pa Only (07/28/17 13:21) Ekg Tracing (07/28/17 13:21) Continuous Ekg Monitoring (07/28/17 13:21) Protime With Inr (07/28/17 13:21) Blood Culture (07/28/17 13:21) Ondansetron Injection (Zofran Injectio (07/28/17 13:30) Ns Iv 1000 Ml (Sodium Chloride 0.9%) (07/28/17 13:30) Ibuprofen Tablet (Motrin Tablet) (07/28/17 13:30) Ondansetron Injection (Zofran Injectio (07/28/17 13:25) Acetaminophen Tablet (Tylenol Tablet) (07/28/17 13:45) Ct Abdomen/Pelvis Wo (07/28/17 13:35) Manual Differential (07/28/17 13:29) Lactic Acid Analyzer (07/28/17 14:05) Urine Culture (07/28/17 14:53) Ceftriaxone Injection (Rocephin Injectio (07/28/17 15:30) Wound Culture (07/28/17 16:04) Trough Order (Trough Order-Pharmacy Orde (07/29/17 16:00) Cbc With Automated Diff (07/28/17 17:52) Comprehensive Metabolic Panel (07/28/17 17:52) Troponin I (07/28/17 17:52) Chest 1 View, Ap/Pa Only (07/28/17 18:50) Medications Given in ED Current Medications Medications Dose Ordered Sig/Arlette Route Start Time Stop Time Status Last Admin Dose Admin Acetaminophen 1,000 mg ONCE ONCE PO 07/28/17 13:45 07/28/17 13:46 DC 07/28/17 14:06 1,000 MG Ceftriaxone Sodium 1000 mg/ Sodium Chloride 50 ml @ 200 mls/hr ONCE ONCE IV 07/28/17 15:30 07/28/17 15:44 DC 07/28/17 15:41 200 MLS/HR Ondansetron HCl 4 mg STK-MED ONCE .ROUTE 07/28/17 13:25 07/28/17 13:30 DC 07/28/17 13:48 8 MG Vital Signs/I&O 07/28/17 07/28/17 07/28/17 07/28/17 13:20 14:06 14:42 16:39 Temp 102.3 102.3 102.0 100.6 Pulse 100 111 81 Resp 18 20 18 B/P (MAP) 200/100 (133) 135/79 109/47 Pulse Ox 90 94 95 O2 Delivery Nasal Cannula OxyMask Nasal Cannula O2 Flow Rate 3.00 10.00 3.00 07/28/17 17:00 Pulse Ox 91 O2 Delivery Nasal Cannula O2 Flow Rate 5.00 Capillary Refill : Diagnostic Imaging Diagonstic Imaging: CT Comments NAME: JAYESH LOVE MED REC#: [id number] PT STATUS: REG ER : 1945 PHYSICIAN: JOAN RAGLAND APRN ADMIT DATE: 07/28/17/ER Draft Date of Exam:07/28/17 CT ABDOMEN/PELVIS WO PROCEDURE: CT abdomen and pelvis without contrast. TECHNIQUE: Multiple contiguous axial images were obtained through the abdomen and pelvis without the use of intravenous contrast. INDICATION: Fever and weakness. COMPARISON: Comparison is made with prior CT from 02/16/2017. FINDINGS: The lung bases are clear. There are coronary arterial calcifications present. No discrete liver mass is identified. The gallbladder appears contracted. The pancreas and spleen are unremarkable. No adrenal mass is detected. No renal calculus or hydronephrosis is detected. Aorta is calcified but nonaneurysmal. The small and large bowel loops are normal caliber. There is no ascites. No inflammatory process in the abdomen or pelvis is seen. The bladder is unremarkable. Bony structures are nonacute. IMPRESSION: Unremarkable noncontrast CT of the abdomen and pelvis. Dictated on workstation # [id number] Dict: 07/28/17 1417 Trans: 07/28/17 [facility] [id number] Interpreted by: DARIO AGUILAR MD Electronically signed by: NAME: JAYESH LOVE [facility] REC#: [id number] PT STATUS: REG ER : 1945 PHYSICIAN: JOAN RAGLAND APRN ADMIT DATE: 07/28/17/ER Draft Date of Exam:07/28/17 CHEST 1 VIEW, AP/PA ONLY EXAMINATION: Portable erect AP chest at 01:43 p.m. INDICATION: Fever. FINDINGS: The cardiomegaly noted on the prior exam of 09/12/2016 is again evident and no different. Also as on the prior study, the right hemidiaphragm is elevated. The lungs, where visualized are clear. There is no sign of failure, pneumonia, or pleural effusion to suggest an acute abnormality. The right hilum is prominent but no different than on the prior exam. The mediastinum is not widened. The osseous structures are intact. IMPRESSION: 1. There is cardiomegaly, but there is no evidence for an acute cardiopulmonary abnormality. 2. Reportedly, CT of the abdomen and pelvis is pending for further study. Dictated on workstation # [id number] Dict: 07/28/17 1423 Trans: 07/28/17 1432 [id number] Interpreted by: PABLO GUTIERREZ MD Electronically signed by: Departure Communication (Admissions) Time/Spoke to Admitting Phy: 15:[address] Torres, recommend Zofran, Tylenol, hydrocodone for pain, Rocephin and vancomycin. Impression Primary Impression: Urinary tract infection Additional Impressions: Chronic renal insufficiency COPD exacerbation Sepsis Disposition: ADMITTED INPATIENT Condition: Stable Admissions Decision to Admit Reason: Admit from ER (General) Decision to Admit/Date: July 28, 2017 Time/Decision to Admit Time: 15:39 Departure-Patient Inst. Referrals: TAMIKA WHITE DO (PCP/Family) Primary Care Physician JOAN RAGLAND [employer] July 28, 2017 13:33
[2017-07-28 13:37] LABS: BASOPHILS % (AUTO) 0 % (0-10); EOSINOPHILS # (AUTO) 0.1 10^3/uL (0.0-0.3); EOSINOPHILS % (AUTO) 1 % (0-10); HEMATOCRIT 36 % (40-54); HEMOGLOBIN 11.3 G/DL (13.3-17.7); LYMPHOCYTES # (AUTO) 0.7 X 10^3 (1.0-4.0); LYMPHOCYTES % (AUTO) 6 % (12-44); MEAN CORPUSCULAR HEMOGLOBIN 27 PG (25-34); MEAN CORPUSCULAR HGB CONC 32 G/DL (32-36); MEAN CORPUSCULAR VOLUME 86 FL (80-99); MEAN PLATELET VOLUME 9.9 FL (7.4-10.4); MONOCYTES # (AUTO) 0.7 X 10^3 (0.0-1.0); MONOCYTES % (AUTO) 5 % (0-12); NEUTROPHILS # (AUTO) 11.4 X 10^3 (1.8-7.8); NEUTROPHILS % (AUTO) 88 % (42-75); PLATELET COUNT 238 10^3/uL (130-400); RED BLOOD COUNT 4.13 10^6/uL (4.35-5.85); RED CELL DISTRIBUTION WIDTH 15.5 % (10.0-14.5); WHITE BLOOD COUNT 12.9 10^3/uL (4.3-11.0)
[2017-07-28] MEDS ORDERED: ACETAMINOPHEN 500 MG TAB (TYLENOL) PO ONE (13:45)
[2017-07-28 13:53] LABS: INR 1.3 (0.8-1.4); PROTHROMBIN TIME PATIENT 16.1 SEC (12.2-14.7)
[2017-07-28 14:00] LABS: ALBUMIN 3.4 GM/DL (3.2-4.5); BILIRUBIN,TOTAL 0.7 MG/DL (0.1-1.0); CALCIUM 9.2 MG/DL (8.5-10.1); CREATININE SERUM 1.49 MG/DL (0.60-1.30); POTASSIUM 4.7 MMOL/L (3.6-5.0); TOTAL PROTEIN 7.2 GM/DL (6.4-8.2)
[2017-07-28 14:02] LABS: BAND NEUTROPHILS 2 %; BASOPHILS % (MANUAL) 0 %; EOSINOPHILS % (MANUAL) 2 %; LYMPHOCYTES % (MANUAL) 3 %; MONOCYTES % (MANUAL) 1 %; NEUTROPHILS % (MANUAL) 92 %; RBC MORPH NORMAL
--- NOTE | 2017-07-28 14:23 | Diagnostic Imaging Report ---
PROCEDURE: CT abdomen and pelvis without contrast. TECHNIQUE: Multiple contiguous axial images were obtained through the abdomen and pelvis without the use of intravenous contrast. INDICATION: Fever and weakness. COMPARISON: Comparison is made with prior CT from 02/16/2017. FINDINGS: The lung bases are clear. There are coronary arterial calcifications present. No discrete liver mass is identified. The gallbladder appears contracted. The pancreas and spleen are unremarkable. No adrenal mass is detected. No renal calculus or hydronephrosis is detected. Aorta is calcified but nonaneurysmal. The small and large bowel loops are normal caliber. There is no ascites. No inflammatory process in the abdomen or pelvis is seen. The bladder is unremarkable. Bony structures are nonacute. IMPRESSION: Unremarkable noncontrast CT of the abdomen and pelvis. Dictated by: Dictated on workstation # [id number]
--- NOTE | 2017-07-28 14:33 | Diagnostic Imaging Report ---
EXAMINATION: Portable erect AP chest at 01:43 p.m. INDICATION: Fever. FINDINGS: The cardiomegaly noted on the prior exam of 09/12/2016 is again evident and no different. Also as on the prior study, the right hemidiaphragm is elevated. The lungs, where visualized are clear. There is no sign of failure, pneumonia, or pleural effusion to suggest an acute abnormality. The right hilum is prominent but no different than on the prior exam. The mediastinum is not widened. The osseous structures are intact. IMPRESSION: 1. There is cardiomegaly, but there is no evidence for an acute cardiopulmonary abnormality. 2. Reportedly, CT of the abdomen and pelvis is pending for further study. Dictated by: Dictated on workstation # [id number]
[2017-07-28 15:02] LABS: BILIRUBIN,URINE NEGATIVE (NEGATIVE); CLARITY,URINE CLEAR; COLOR,URINE YELLOW; GLUCOSE, URINE (UA) NEGATIVE (NEGATIVE); KETONES,URINE NEGATIVE (NEGATIVE); LEUKOCYTE ESTERASE ,URINE 2+ (NEGATIVE); NITRITE,URINE NEGATIVE (NEGATIVE); PH,URINE 5 (5-9); PROTEIN,URINE 2+ (NEGATIVE); UROBILINOGEN,URINE NORMAL (NORMAL)
[2017-07-28 15:21] LABS: AMORPHOUS SEDIMENT,UR FEW AMOR URATES /LPF; BACTERIA,URINE FEW /HPF
[2017-07-28] MEDS ORDERED: cefTRIAXone INJECTION 1,000 MG in NS (IVPB) 50 ML IV ONE (15:30)
[2017-07-28 16:39] VITALS: BP 109/47
[2017-07-28] MEDS ORDERED: VANCOMYCIN 2000 MG/NS 500 ML IVPB IV SCH ×2 (17:00)
[2017-07-28] MEDS ORDERED: ONDANSETRON 4 MG/2 ML (SDV) Z0FRAN IV PRN (17:15)
[2017-07-28] MEDS ORDERED: ACETAMINOPHEN 325 MG TABLET/CAPLET (TYLENOL) PO PRN (17:15)
[2017-07-28] MEDS ORDERED: HYDROcodone/APAP 5 MG/325 MG (LORTAB) TAB PO PRN (17:15)
[2017-07-28] MEDS ORDERED: PROPOFOL DRIP (ICU) 100 ML IV ONE (17:28)
[2017-07-28] MEDS ORDERED: CATHETER FLUSH 10 ML SYR IV PRN (17:30)
[2017-07-28 17:58] LABS: BASOPHILS % (AUTO) 0 % (0-10); EOSINOPHILS % (AUTO) 0 % (0-10); HEMATOCRIT 35 % (40-54); HEMOGLOBIN 11.1 G/DL (13.3-17.7); LYMPHOCYTES # (AUTO) 0.5 X 10^3 (1.0-4.0); LYMPHOCYTES % (AUTO) 10 % (12-44); MEAN CORPUSCULAR HEMOGLOBIN 27 PG (25-34); MEAN CORPUSCULAR HGB CONC 31 G/DL (32-36); MEAN CORPUSCULAR VOLUME 87 FL (80-99); MEAN PLATELET VOLUME 10.9 FL (7.4-10.4); MONOCYTES # (AUTO) 0.1 X 10^3 (0.0-1.0); MONOCYTES % (AUTO) 2 % (0-12); NEUTROPHILS # (AUTO) 4.9 X 10^3 (1.8-7.8); NEUTROPHILS % (AUTO) 88 % (42-75); PLATELET COUNT 172 10^3/uL (130-400); RED BLOOD COUNT 4.07 10^6/uL (4.35-5.85); RED CELL DISTRIBUTION WIDTH 15.4 % (10.0-14.5); WHITE BLOOD COUNT 5.5 10^3/uL (4.3-11.0)
--- NOTE | 2017-07-28 18:09 | Diagnostic Imaging Report ---
INDICATION: Post code. Intubation. EXAMINATION: Single view of the chest was obtained. FINDINGS: Since the prior exam, there has been placement of an ET tube which is in good position above the karen. An OG tube is present with tip in the stomach. The heart size and vascularity are normal. The lungs are clear. There is no effusion or pneumothorax. IMPRESSION: Satisfactory ET tube and OG tube placement. Dictated by: Dictated on workstation # [id number]
[2017-07-28] MEDS ORDERED: EPINEPHrine (OMNICELL DRIP KIT ONLY) 1 MG/ML AMP ONE (18:11)
[2017-07-28] MEDS ORDERED: NS (IVPB) 250 ML ONE ×2 (18:12→18:48)
[2017-07-28 18:14] LABS: ALANINE AMINOTRANSFERASE 20 U/L (0-55); ALBUMIN 3.1 GM/DL (3.2-4.5); ALKALINE PHOSPHATASE 79 U/L (40-136); BILIRUBIN,TOTAL 0.9 MG/DL (0.1-1.0); BUN/CREATININE RATIO 15; CALCIUM 8.4 MG/DL (8.5-10.1); CARBON DIOXIDE 27 MMOL/L (21-32); CHLORIDE 101 MMOL/L (98-107); CREATININE SERUM 1.56 MG/DL (0.60-1.30); GFR ESTIMATED 44; GLUCOSE 101 MG/DL (70-105); POTASSIUM 3.9 MMOL/L (3.6-5.0); SODIUM 138 MMOL/L (135-145); TOTAL PROTEIN 5.9 GM/DL (6.4-8.2)
[2017-07-28] MEDS ORDERED: MIDAZOLAM 5 MG/5 ML (VERSED) VIAL ONE ×2 (18:19→18:30)
[2017-07-28] MEDS ORDERED: fentaNYL INJECTION 100 MCG/2 ML AMP ONE ×2 (18:19→18:30)
[2017-07-28] MEDS ORDERED: EPINEPHrine INJECTION 1 MG/ML AMP ONE (18:30)
[2017-07-28] MEDS ORDERED: DOBUTAMINE DRIP IV ONE (18:30)
[2017-07-28] MEDS ORDERED: ETOMIDATE IV SOLN 20 MG/10 ML VIAL ONE (18:30)
[2017-07-28] MEDS ORDERED: DOPamine DRIP 400,000 MCG/250 ML BAG IV ONE (18:30)
[2017-07-28] MEDS ORDERED: CATHETER FLUSH 10 ML SYR ONE (18:30)
[2017-07-28] MEDS ORDERED: SUCCINYLCHOLINE INJ 100 MG/5 ML SYR ONE (18:30)
[2017-07-28] MEDS ORDERED: NS IV 500 ML 500 ML ONE (18:34)
[2017-07-28 18:52] LABS: ABG OXYGEN SATURATION 98 % (94-100); ABG PCO2 59 MMHG (35-45); ABG PO2 105 MMHG (79-93); ABG TCO2 29.5 MMOL/L (21.0-31.0)
[2017-07-28 18:54] LABS: INSPIRED O2 100%; PATIENT TEMP 99.6; VENTILATOR YES
--- NOTE | 2017-07-28 19:32 | Diagnostic Imaging Report ---
INDICATION: Post Code, central line placement. FINDINGS: Since the earlier study, there has been placement of an IJ line from the right. Tip is in the SVC. There is no pneumothorax. IMPRESSION: IJ line tip is in the SVC. Dictated by: Dictated on workstation # [id number]
--- NOTE | 2017-07-28 19:32 | Diagnostic Imaging Report ---
PROCEDURE: CT head without contrast. TECHNIQUE: Multiple contiguous axial images were obtained through the brain without the use of intravenous contrast. INDICATION: Post CODE BLUE The ventricles are normal in size, shape and position. There is no acute parenchymal hemorrhage, edema or mass. There is no extra-axial mass or hemorrhage. IMPRESSION: No acute abnormality is seen. Dictated by: Dictated on workstation # [id number]
[2017-07-28] MEDS ORDERED: inSUlin ASPART (NovoLOG) 1 UNIT/0.01 ML (CHARGE PER UNIT) SC SCH (21:00)
--- NOTE | 2017-07-28 21:18 | Inpatient Code Blue ---
JOAN KAUR COMMISSION AGENT LIVESTOCK 07[birth year]: General Chief Complaint: Abdominal/GI Problems Stated Complaint: UTI;SEPSIS;CELLULITIS L LEG Nursing Triage Note: C/O fever this am, 102, weakness and vomiting Exam Limitations: clinical condition History of Present Illness Date Seen by Provider: July 28, 2017 Time Seen by Provider: 17:20 Initial Comments ARNAV DAVILA was called overhead and arrived to this accompanied by Dr. Madison.CPR had been started briefly and then terminated after a pulse was found just prior to my arrival. However his breathing remained agonal. He was sedated with 20 mg of etomidate and paralyzed with her milligrams of succinylcholine. He was intubated with a size 8 endotracheal tube 24 cm at the teeth. I visualized the balloon passing through the cords and inflated the balloon. Positive color change on the colorimeter and equal breath sounds bilaterally. He was vomiting upon my arrival to the room. per nursing notes: VS: 143/62, HR 111, 85% ON 5L NC. EKG SHOWED SINUS RHYTHM, CPR HELD. 1729: VS 133/81, HR 123, 85% ON 8L MASK. AT THIS TIME PATIENT BEGAN TO PROJECTILE VOMIT CLEAR LIQUIDS, PATIENT ORALLY SUCTIONED. 1733: 20MG ETOMIDATE GIVEN ALONG WITH 100MG SUCCINylcholine FOR INTUBATION 1735: PATIENT INTUBATED WITH 8MM ET TUBE 1737: 18 FR OG TUBE PLACED 1742: PATIENT TRANSFERRED TO ICU Allergies and Home Medications Allergies Coded Allergies: PING Inhibitors (Verified Allergy, Mild, 05/16/15) UNCONTROLLED COUGHING amoxicillin (Verified Allergy, Mild, itching (PT HAS RECEIVED CEFEPIME & ANCEF IN THE PAST), 11/25/15) Home Medications Apixaban 5 Mg Tablet, 5 MG PO BID, (Reported) Aspirin 81 Mg Tablet.dr, 81 MG PO DAILY, (Reported) Atorvastatin Calcium 10 Mg Tablet, 10 MG PO HS, (Reported) Furosemide 40 Mg Tablet, 40 MG PO DAILY, (Reported) Gabapentin 300 Mg Capsule, 300 MG PO BID, (Reported) Hydrocodone Bit/Acetaminophen 1 Each Tablet, 1 TAB PO DAILY, (Reported) Insulin Aspart 300 Units/3 Ml Solution, 4-12 UNITS SC ACHS, (Reported) Insulin Detemir 100 Unit/1 Ml Insuln.pen, 40 UNITS SC BID, (Reported) Magnesium Oxide 400 Mg Tablet, 400 MG PO BID Prescribed by: LIZET FRAZIER on 09/13/16 0803 Multivitamin 1 Each Tablet, 1 TAB PO DAILY, (Reported) Ranitidine HCl 150 Mg Tablet, 150 MG PO BID, (Reported) Patient Home Medication List Home Medication List Reviewed: Yes Physical Exam Vital Signs Vital Signs - First Documented 07/28/17 13:20 Temp 102.3 Pulse 100 Resp 18 B/P (MAP) 200/100 (133) Pulse Ox 90 O2 Delivery Nasal Cannula O2 Flow Rate 3.00 Capillary Refill : Less Than 3 Seconds General Appearance: obese Eyes: Bilateral Eye Normal Inspection, Bilateral Eye PERRL Neck: supple, normal inspection Respiratory: respiratory distress, other (agonal breathing) Cardiovascular: no JVD, tachycardia Gastrointestinal: normal bowel sounds, soft Extremities: normal range of motion Skin: warm/dry, pallor Procedures/Interventions Date of ETT Placement: July 28, 2017 Time of ETT Placement: 17:25 Intubation Method: orotracheal Tube Size: 8 Medications: Etomidate, Succinylcholine Breath Sounds after Intubation: bilateral-equal Intubation Complications: no complications Post Intubation Xray: Yes Critical Care Note Critical Care Start Time: 17:23 Stop Time: 17:42 Total Time (minutes) 19 Progress/Results/Core Measures Results/Orders Lab Results Laboratory Tests Test 07/28/17 13:29 07/28/17 14:53 07/28/17 15:38 07/28/17 17:38 Range/Units White Blood Count 12.9 H 5.5 4.3-11.0 10^3/uL Red Blood Count 4.13 L 4.07 L 4.35-5.85 10^6/uL Hemoglobin 11.3 L 11.1 L 13.3-17.7 G/DL Hematocrit 36 L 35 L 40-54 % Mean Corpuscular Volume 86 87 80-99 FL Mean Corpuscular Hemoglobin 27 27 25-34 PG Mean Corpuscular Hemoglobin Concent 32 31 L 32-36 G/DL Red Cell Distribution Width 15.5 H 15.4 H 10.0-14.5 % Platelet Count 238 172 130-400 10^3/uL Mean Platelet Volume 9.9 10.9 H 7.4-10.4 FL Neutrophils (%) (Auto) 88 H 88 H 42-75 % Lymphocytes (%) (Auto) 6 L 10 L 12-44 % Monocytes (%) (Auto) 5 2 0-12 % Eosinophils (%) (Auto) 1 0 0-10 % Basophils (%) (Auto) 0 0 0-10 % Neutrophils # (Auto) 11.4 H 4.9 1.8-7.8 X 10^3 Lymphocytes # (Auto) 0.7 L 0.5 L 1.0-4.0 X 10^3 Monocytes # (Auto) 0.7 0.1 0.0-1.0 X 10^3 Eosinophils # (Auto) 0.1 0.0 0.0-0.3 10^3/uL Basophils # (Auto) 0.0 0.0 0.0-0.1 10^3/uL Neutrophils % (Manual) 92 % Lymphocytes % (Manual) 3 % Monocytes % (Manual) 1 % Eosinophils % (Manual) 2 % Basophils % (Manual) 0 % Band Neutrophils 2 % Blood Morphology Comment NORMAL Prothrombin Time 16.1 H 12.2-14.7 SEC INR Comment 1.3 0.8-1.4 Sodium Level 139 138 135-145 MMOL/L Potassium Level 4.7 3.9 3.6-5.0 MMOL/L Chloride Level 100 101 98-107 MMOL/L Carbon Dioxide Level 30 27 21-32 MMOL/L Anion Gap 9 10 5-14 MMOL/L Blood Urea Nitrogen 21 H 23 H 7-18 MG/DL Creatinine 1.49 H 1.56 H 0.60-1.30 MG/DL Estimat Glomerular Filtration Rate 46 44 BUN/Creatinine Ratio 14 15 Glucose Level 149 H 101 70-105 MG/DL Lactic Acid Level 2.21 *H 1.61 0.50-2.00 MMOL/L Calcium Level 9.2 8.4 L 8.5-10.1 MG/DL Total Bilirubin 0.7 0.9 0.1-1.0 MG/DL Aspartate Amino Transf (AST/SGOT) 30 48 H 5-34 U/L Alanine Aminotransferase (ALT/SGPT) 17 20 0-55 U/L Alkaline Phosphatase 85 79 40-136 U/L Total Protein 7.2 5.9 L 6.4-8.2 GM/DL Albumin 3.4 3.1 L 3.2-4.5 GM/DL Urine Color YELLOW Urine Clarity CLEAR Urine pH 5 5-9 Urine Specific [place] 1.015 L 1.016-1.022 Urine Protein 2+ H NEGATIVE Urine Glucose (UA) NEGATIVE NEGATIVE Urine Ketones NEGATIVE NEGATIVE Urine Nitrite NEGATIVE NEGATIVE Urine Bilirubin NEGATIVE NEGATIVE Urine Urobilinogen NORMAL NORMAL MG/DL Urine Leukocyte Esterase 2+ H NEGATIVE Urine RBC (Auto) 4+ H NEGATIVE Urine RBC 5-10 H /HPF Urine WBC 5-10 H /HPF Urine Squamous Epithelial Cells 5-10 /HPF Urine Crystals PRESENT H /LPF Urine Amorphous Sediment FEW TAJ URATES H /LPF Urine Bacteria FEW H /HPF Urine Casts NONE /LPF Urine Mucus NEGATIVE /LPF Urine Culture Indicated YES Troponin I < 0.30 <0.30 NG/ML Test 07/28/17 18:12 Range/Units Blood Gas Puncture Site RT RAD Blood Gas Patient Temperature 99.6 Arterial Blood pH 7.30 *L 7.37-7.43 Arterial Blood Partial Pressure CO2 59 H 35-45 MMHG Arterial Blood Partial Pressure O2 105 H 79-93 MMHG Arterial Blood HCO3 28 H 23-27 MMOL/L Arterial Blood Total CO2 29.5 21.0-31.0 MMOL/L Arterial Blood Oxygen Saturation 98 94-100 % Arterial Blood Base Excess 2.0 -2.5-2.5 MMOL/L Aram Test NA Blood Gas Ventilator Setting YES Blood Gas Inspired Oxygen 100% Micro Results Microbiology 07/28/17 Urine Culture - Preliminary, Resulted Sent To [facility] My Orders Orders - JOAN KAUR APRN Cbc With Automated Diff (07/28/17 13:21) Comprehensive Metabolic Panel (07/28/17 13:21) Ua Culture If Indicated (07/28/17 13:21) Chest 1 View, Ap/Pa Only (07/28/17 13:21) Ekg Tracing (07/28/17 13:21) Continuous Ekg Monitoring (07/28/17 13:21) Protime With Inr (07/28/17 13:21) Blood Culture (07/28/17 13:21) Ondansetron Injection (Zofran Injectio (07/28/17 13:30) Ns Iv 1000 Ml (Sodium Chloride 0.9%) (07/28/17 13:30) Ibuprofen Tablet (Motrin Tablet) (07/28/17 13:30) Ondansetron Injection (Zofran Injectio (07/28/17 13:25) Acetaminophen Tablet (Tylenol Tablet) (07/28/17 13:45) Ct Abdomen/Pelvis Wo (07/28/17 13:35) Manual Differential (07/28/17 13:29) Lactic Acid Analyzer (07/28/17 14:05) Urine Culture (07/28/17 14:53) Ceftriaxone Injection (Rocephin Injectio (07/28/17 15:30) Wound Culture (07/28/17 16:04) Trough Order (Trough Order-Pharmacy Orde (07/29/17 16:00) Cbc With Automated Diff (07/28/17 17:52) Comprehensive Metabolic Panel (07/28/17 17:52) Troponin I (07/28/17 17:52) Chest 1 View, Ap/Pa Only (07/28/17 18:50) Medications Given in ED Current Medications Medications Dose Ordered Sig/Arlette Route Start Time Stop Time Status Last Admin Dose Admin Acetaminophen 1,000 mg ONCE ONCE PO 07/28/17 13:45 07/28/17 13:46 DC 07/28/17 14:06 1,000 MG Ceftriaxone Sodium 1000 mg/ Sodium Chloride 50 ml @ 200 mls/hr ONCE ONCE IV 07/28/17 15:30 07/28/17 15:44 DC 07/28/17 15:41 200 MLS/HR Ondansetron HCl 4 mg STK-MED ONCE .ROUTE 07/28/17 13:25 07/28/17 13:30 DC 07/28/17 13:48 8 MG Vital Signs/I&O 07/28/17 07/28/17 07/28/17 07/28/17 13:20 14:06 14:42 16:39 Temp 102.3 102.3 102.0 100.6 Pulse 100 111 81 Resp 18 20 18 B/P (MAP) 200/100 (133) 135/79 109/47 Pulse Ox 90 94 95 O2 Delivery Nasal Cannula OxyMask Nasal Cannula O2 Flow Rate 3.00 10.00 3.00 07/28/17 17:00 Pulse Ox 91 O2 Delivery Nasal Cannula O2 Flow Rate 5.00 Blood Pressure Mean: 97 Progress Progress Note : Progress Note AT APPROXIMATELY 1800- at 1800 a second CODE BLUE was called overhead. At this time the patient was in the ICU. Upon my arrival accompanied by Dr. Gonzalez, the CPR had been stopped. He did receive 1 dose of epinephrine IV prior to my arrival. His blood pressure was dropping quickly after this to consistently in the 60s systolic. Heart rate tachycardia irregular rate in the 120s. He did have a carotid pulse with this. It was decided to start him on an epinephrine drip. I did start a peripheral IV in the right antecubital fossa using a double lumen 16-gauge 2 inch IV catheter. I notified Dr. Torres of the patient's code and subsequent transfer to the ICU and since we do not have Pulmonology coverage this week and she would like him to be transferred to a facility that does have that. I then spoke with Dr. Blanco flue gas analyst at [facility] in [place]. He agrees to accept the patient but would like a CT scan of the head prior to accepting. Patient was too unstable with hypotension to go to CT scan for about 30 minutes. I did start a 7 Yi triple-lumen central catheter under ultrasound guidance under sterile technique to the right internal jugular vein. This took one attempt, had good blood return, placement confirmed with x-ray. Blood pressure remained low despite the epinephrine drip so dopamine was added. This did increased blood pressure to 112 systolic and also increase the heart rate to 150. Dopamine was then stopped and levophed was started in its place with a reduction in heart rate to 110 range and maintenance of systolic blood pressure also around 110. Blood pressure was above 100 systolic so he was stable enough to go to CT scan which showed an unremarkable for any acute abnormality CT scan of the brain. Chest x-ray was obtained in the radiology department. I then relayed these findings to Dr. Medrano and he agrees to accept. [facility] arrived and transported the patient via helicopter to [facility] in [place]. Care was overseen by Dr. Gonzalez. I did update the family on the plan. Diagnostic Imaging Diagonstic Imaging: CT Time of Consult: 15:55 Clinical Quality Measures DVT/VTE Risk/Contraindication: Risk Factor Score Per Nursin RFS Level Per Nursing on Admit: 4+=Very High SANJAY GONZALEZ 07/28/17 3608: General Chief Complaint: Abdominal/GI Problems Stated Complaint: UTI;SEPSIS;CELLULITIS L LEG Allergies and Home Medications Allergies Coded Allergies: PING Inhibitors (Verified Allergy, Mild, 05/16/15) UNCONTROLLED COUGHING amoxicillin (Verified Allergy, Mild, itching (PT HAS RECEIVED CEFEPIME & ANCEF IN THE PAST), 11/25/15) Home Medications Apixaban 5 Mg Tablet, 5 MG PO BID, (Reported) Aspirin 81 Mg Tablet.dr, 81 MG PO DAILY, (Reported) Atorvastatin Calcium 10 Mg Tablet, 10 MG PO HS, (Reported) Furosemide 40 Mg Tablet, 40 MG PO DAILY, (Reported) Gabapentin 300 Mg Capsule, 300 MG PO BID, (Reported) Hydrocodone Bit/Acetaminophen 1 Each Tablet, 1 TAB PO DAILY, (Reported) Insulin Aspart 300 Units/3 Ml Solution, 4-12 UNITS SC ACHS, (Reported) Insulin Detemir 100 Unit/1 Ml Insuln.pen, 40 UNITS SC BID, (Reported) Magnesium Oxide 400 Mg Tablet, 400 MG PO BID Prescribed by: LIZET FRAZIER on 09/13/16 0803 Multivitamin 1 Each Tablet, 1 TAB PO DAILY, (Reported) Ranitidine HCl 150 Mg Tablet, 150 MG PO BID, (Reported) Progress/Results/Core Measures Progress Progress Note : Time: 23:02 Progress Note My supervising participated in the second CODE BLUE, central line placement, establishment of pressors with Joan Kaur APRN. Chest x-ray demonstrated endotracheal tube to be in good position 27 m above the karen and a right- sided central line that appeared to be in the superior vena cava on x-ray. I accompanied the patient to x-ray and saw a negative looking head CT. Patient's pressures were starting to dip so we switched the pressors over to the central line after obtaining the chest x-ray and radiology Department and The Levophed at 20 and increase the epinephrine to 12. Patient's pressure improved and heart rate was in the 110-120 range. Sedation by 5 more milligrams of Versed push and 50 g of fentanyl IV. After which time the patient was then set up for transfer by [facility]. Joan Kaur all spoke with Bella to discuss the results of the CT head. Ice bags were placed under bilateral armpits with a goal of lowering the temperature towards 36C. Agree with the assessment, findings and participation of Joan Kaur APRN from the time I arrived at 1800 forward. SHANITA MADISON MD 08/14/17 1408: Progress/Results/Core Measures Progress Progress Note : Time: 17:30 Progress Note I participated in the initial resuscitation led by Natasha. This began at approximately 1720. The patient had become acutely unresponsive. He was intubated by Mr. Kaur. Vital signs were restored. The endotracheal tube was monitored with colorimetry and appropriate color change. Breath sounds were heard in both lungs. Heart tones were able to be evaluated with auscultation. Aggressive fluids were provided. The patient was stabilized and transferred to the ICU. He had a second resuscitation in the ICU in which I did not participate. JOAN KAUR APRN July 28, 2017 21:18 SANJAY GONZALEZ July 28, 2017 23:06 SHANITA MADISON MD Aug 14, 2017 14:08
[2017-07-29] MEDS ORDERED: VANCOMYCIN 1500 MG/NS 500 ML IVPB IV SCH ×2 (05:00)
--- NOTE | 2017-07-29 10:42 | History & Physical-Hospitalist ---
History of Present Illness Date Seen 07/29/17 Time Seen by Provider: 00:00 Attending Physician Marko Bunch DO PCP Marko Bunch DO Referring Physician Date of Admission July 28, 2017 at 16:11 Home Medications & Allergies Home Medications Reviewed patient Home Medication Reconciliation performed by pharmacy medication reconciliations nuclear reactor technician and/or nursing. Patients Allergies have been reviewed. Allergies Allergies Coded Allergies PING Inhibitors (Verified Allergy, Mild, 05/16/15) UNCONTROLLED COUGHING amoxicillin (Verified Allergy, Mild, itching (PT HAS RECEIVED CEFEPIME & ANCEF IN THE PAST), 11/25/15) Past Pqvvyzr-Pbmdhq-Xrzyur Hx Past Med/Social Hx: Reviewed Nursing Past Med/Soc Hx Patient Social History Alcohol Use: Denies Use Recreational Drug Use: No Smoking Status: Never a Smoker Physical Abuse Screen: No Sexual Abuse: No Recent Foreign Travel: No Contact w/other who traveled: No Recent Hopitalizations: No Recent Infectious Disease Expo: No Immunizations Up To Date Tetanus Booster (TDap): Less than 5yrs Pediatric: Yes Seasonal Allergies Seasonal Allergies: No Past Medical History Surgeries: Cardiac, Coronary Stent, Orthopedic, Tonsillectomy, Vascular Surgery Respiratory: COPD Currently Using CPAP: Yes Currently Using BIPAP: No Cardiac: Chronic Edema/Swelling, Coronary Artery Disease, Heart Attack, High Cholesterol, Hypertension, Irregular Heartbeat, Peripheral Vascular Neurological: Neuropathy Reproductive: No Sexually Transmitted Disease: No HIV/AIDS: No Gastrointestinal: Gastroesophageal Reflux Musculoskeletal: Arthritis Endocrine: Diabetes, Insulin dep Loss of Vision: Denies Hearing Impairment: Denies, Hard of Hearing History of Blood Disorders: No Adverse Reaction to Blood [place]: No Family History Family history: Arthritis 19 FATHER 19 MOTHER Headache 19 FATHER 19 MOTHER Hearing loss 19 MOTHER History of - anemia 19 MOTHER Stroke 19 FATHER No Family History of: AIDS Abdominal aortic aneurysm Abdominal aortic aneurysm Kaz's disease Vigo's disease Alcoholism Alzheimer's disease Aphasia Cancer Cancer of colon Cataract Chest pain Congenital heart disease Congestive heart failure Cystic fibrosis Dementia Dysphagia Family history: Allergy Family history: Alzheimer's disease Family history: Asthma Family history: Breast disease Family history: Cardiovascular disease Family history: Coronary thrombosis Family history: Diabetes mellitus Family history: Gastrointestinal disease Family history: Glaucoma Family history: Hypertension Family history: Osteoporosis Family history: Thyroid disorder Heart disease Hereditary disease History of - disorder History of - respiratory disease History of drug abuse Human immunodeficiency virus (HIV) seropositivity Hypercholesterolemia Infertile Kidney disease Malignant neoplasm of lung Myocardial infarction Parkinson's disease Prostate cancer Psychotic disorder Seizure disorder Thyroid disease Tuberculosis Tuberculosis Visual impairment Heart Disease, Stroke, Vascular Disease Review of Systems Constitutional: other (patient not seen since coded and transferred ) Physical Exam Physical Exam Vital Signs Vital Signs - First Documented 07/28/17 13:20 Temp 102.3 Pulse 100 Resp 18 B/P (MAP) 200/100 (133) Pulse Ox 90 O2 Delivery Nasal Cannula O2 Flow Rate 3.00 Capillary Refill : Less Than 3 Seconds General Appearance: Other (patient not seen since coded and transferred ) Results Results/Procedures Labs Laboratory Tests 07/28/17 13:29 07/28/17 17:38 Patient resulted labs reviewed. Assessment/Plan Admission Diagnosis patient not seen since coded and transferred Admission Status: Inpatient Order (span 2 midnights) Reason for Inpatient Admission: patient not seen since coded and transferred Clinical Quality Measures DVT/VTE Risk/Contraindication: Risk Factor Score Per Nursin RFS Level Per Nursing on Admit: 4+=Very High SHANICE BURGOS DO July 29, 2017 10:42
[2017-07-29] MEDS ORDERED: TROUGH ORDER-PHARMACY XX NR (16:00)
== END 2017-07-28 20:18 | disposition short-term general hospital (02) | DRG 872 ==
LOC: EDUNIT# 13:18 → ER 13:19 → 4TH 16:11 → ICU 17:40 → UNDODISIN 20:18 → ICU 20:18
PROVIDERS: ADMIT Internal Medicine; ATTEND Family Medicine
PROC: 5A1935Z Respiratory Ventilation, Less than 24 Consecutive Hours (ICD-10-PCS; principal; 2017-07-28)
DX: A41.9 Sepsis, unspecified organism (principal); N39.0 Urinary tract infection, site not specified; L03.116 Cellulitis of left lower limb; R11.12 Projectile vomiting; E11.622 Type 2 diabetes mellitus with other skin ulcer; L97.919 Non-pressure chronic ulcer of unspecified part of right lower leg with unspecified severity; L97.929 Non-pressure chronic ulcer of unspecified part of left lower leg with unspecified severity; J44.1 Chronic obstructive pulmonary disease with (acute) exacerbation; I12.9 Hypertensive chronic kidney disease with stage 1 through stage 4 chronic kidney disease, or unspecified chronic kidney disease; N18.9 Chronic kidney disease, unspecified; R60.9 Edema, unspecified; I25.10 Atherosclerotic heart disease of native coronary artery without angina pectoris; E78.00 Pure hypercholesterolemia, unspecified; I73.9 Peripheral vascular disease, unspecified; E11.43 Type 2 diabetes mellitus with diabetic autonomic (poly)neuropathy; K21.9 Gastro-esophageal reflux disease without esophagitis; G47.30 Sleep apnea, unspecified; I25.2 Old myocardial infarction; Z95.5 Presence of coronary angioplasty implant and graft; Z79.4 Long term (current) use of insulin
CPT/HCPCS: 36415; 51702; 70450; 71045; 74176; 80053; 81000; 82805; 83605; 84484; 85007; 85025; 85027; 85610; 87040; 87070; 87077; 87088; 87186; 87205; 93005; 96361; 96365; 96375

== ENCOUNTER → 2018-01-03 | Outpatient (CLI) | payer MEDICARE ==
[~2018-01-03] MED LIST changes: -AMIO200T2 PO; +AMIO200T4 PO; -IPRA3AMP INH; +IPRA3AMP31 INH; +ONDA2VIACC IV; -ONDA4VIA28 IV
== END ==
LOC: CARD 11:20
PROVIDERS: ATTEND Internal Medicine Cardiovascular Disease
DX: I25.10 Atherosclerotic heart disease of native coronary artery without angina pectoris (principal); I65.29 Occlusion and stenosis of unspecified carotid artery; E10.9 Type 1 diabetes mellitus without complications; E78.5 Hyperlipidemia, unspecified; I73.9 Peripheral vascular disease, unspecified; R06.02 Shortness of breath
CPT/HCPCS: 93306

== ENCOUNTER 2018-12-26 02:47 | Observation (INO) | payer MEDICARE ==
[~2018-12-26] VITALS: Ht 172.7 cm; Wt 134.6 kg
[~2018-12-26 02:47] MED LIST changes: -BUME1TAB4 PO; +BUME1TAB8 PO
[2018-12-26] MEDS ORDERED: NITROGLYCERIN 0.4 MG SL TABS BTL 25'S SL PRN ×2 (03:00→07:00)
[2018-12-26] MEDS ORDERED: ASPIRIN 81 MG CHEW (CHILDREN'S ASA) PO ONE (03:00)
[2018-12-26] MEDS ORDERED: morphine INJ 10 MG/ML 1ML (SYR OR VIAL) IVP ONE (03:30)
[2018-12-26 03:31] LABS: BASOPHILS % (AUTO) 0 % (0-10); EOSINOPHILS # (AUTO) 0.3 10^3/uL (0.0-0.3); EOSINOPHILS % (AUTO) 4 % (0-10); HEMATOCRIT 35 % (40-54); HEMOGLOBIN 11.6 G/DL (13.3-17.7); LYMPHOCYTES # (AUTO) 1.1 X 10^3 (1.0-4.0); LYMPHOCYTES % (AUTO) 16 % (12-44); MEAN CORPUSCULAR HEMOGLOBIN 27 PG (25-34); MEAN CORPUSCULAR HGB CONC 33 G/DL (32-36); MEAN CORPUSCULAR VOLUME 82 FL (80-99); MONOCYTES # (AUTO) 0.8 X 10^3 (0.0-1.0); MONOCYTES % (AUTO) 11 % (0-12); NEUTROPHILS # (AUTO) 4.9 X 10^3 (1.8-7.8); NEUTROPHILS % (AUTO) 69 % (42-75); PLATELET COUNT 210 10^3/uL (130-400); RED CELL DISTRIBUTION WIDTH 16.7 % (10.0-14.5); WHITE BLOOD COUNT 7.1 10^3/uL (4.3-11.0)
[2018-12-26 03:41] LABS: INR 1.1 (0.8-1.4); PROTHROMBIN TIME PATIENT 14.1 SEC (12.2-14.7)
--- NOTE | 2018-12-26 03:41 | ED Chest Pain ---
General Chief Complaint: Chest Pain Stated Complaint: CP Source: patient (LIMITED HISTORIAN WITH POOR MEMORY), family (SON DOES NOT KNOW MUCH ABOUT PT'S PMH DETAILS) History of Present Illness Date Seen by Provider: Dec 26, 2018 Time Seen by Provider: 02:52 Initial Comments PT ARRIVES VIA EMS FROM HOME--PT LIVES ALONE, CHILDREN LIVE NEARBY C/O CHEST PAIN--IS UNSURE WHEN IT STARTED PAIN IS MID CHEST AND ALL ACROSS LOWER CHEST AND UPPER ABDOMEN NO NAUSEA PT DOES NOT KNOW IF HE IS SHORT OF BREATH OR NOT. PT WAS HOSPITALIZED AT [place] RECENTLY FOR LEG CELLULITIS AND POSSIBLY OSTEOMYELITIS. PT WAS AT [facility] FOR 100 DAYS RECEIVING IV ANTIBIOTICS, AFTER THAT HOSPITALIZATION PT RECENTLY MOVED BACK INTO HIS OWN HOME, ON 12/22/18. Allergies and Home Medications Allergies Coded Allergies: PING Inhibitors (Verified Allergy, Mild, 05/16/15) UNCONTROLLED COUGHING amoxicillin (Verified Allergy, Mild, itching (PT HAS RECEIVED CEFEPIME & ANCEF IN THE PAST), 11/25/15) Home Medications Apixaban 5 Mg Tablet, 5 MG PO BID, (Reported) Aspirin 81 Mg Tablet.dr, 81 MG PO DAILY, (Reported) Atorvastatin Calcium 10 Mg Tablet, 10 MG PO HS, (Reported) Furosemide 40 Mg Tablet, 40 MG PO DAILY, (Reported) Gabapentin 300 Mg Capsule, 300 MG PO BID, (Reported) Hydrocodone Bit/Acetaminophen 1 Each Tablet, 1 TAB PO DAILY, (Reported) Insulin Aspart 300 Units/3 Ml Solution, 4-12 UNITS SC ACHS, (Reported) Insulin Detemir 100 Unit/1 Ml Insuln.pen, 40 UNITS SC BID, (Reported) Magnesium Oxide 400 Mg Tablet, 400 MG PO BID Prescribed by: LIZET FRAZIER on 09/13/16 0803 Multivitamin 1 Each Tablet, 1 TAB PO DAILY, (Reported) Ranitidine HCl 150 Mg Tablet, 150 MG PO BID, (Reported) Past Iowiraa-Ectzmb-Scipzy Hx Patient Social History Recent Foreign Travel: No Contact w/Someone Who Travel: No Recent Hopitalizations: No Immunizations Up To Date Tetanus Booster (TDap): Less than 5yrs PED Vaccines UTD: Yes Seasonal Allergies Seasonal Allergies: No Past Medical History Surgeries: Yes Cardiac, Coronary Stent, Orthopedic, Tonsillectomy, Vascular Surgery Respiratory: Yes (HAS CPAP BUT DOESN'T USE IT) Sleep Apnea, COPD Currently Using CPAP: Yes Currently Using BIPAP: No Cardiac: Yes Chronic Edema/Swelling, Coronary Artery Disease, Heart Attack, High Cholesterol, Hypertension, Irregular Heartbeat, Peripheral Vascular Neurological: Yes Neuropathy Reproductive Disorders: No Sexually Transmitted Disease: No HIV/AIDS: No Genitourinary: No Gastrointestinal: Yes Gastroesophageal Reflux Musculoskeletal: Yes (R TKR) Arthritis Endocrine: Yes Diabetes, Insulin dep HEENT: No Loss of Vision: Denies Hearing Impairment: Denies, Hard of Hearing Cancer: No Psychosocial: No Integumentary: Yes (Chronic diabetic ulcers bilateral lower extremities) Blood Disorders: No Adverse Reaction/Blood Tranf: No Family Medical History Family history: Arthritis 19 FATHER 19 MOTHER Headache 19 FATHER 19 MOTHER Hearing loss 19 MOTHER History of - anemia 19 MOTHER Stroke 19 FATHER No Family History of: AIDS Abdominal aortic aneurysm Abdominal aortic aneurysm [place]'s disease Kaz's disease Alcoholism Alzheimer's disease Aphasia Cancer Cancer of colon Cataract Chest pain Congenital heart disease Congestive heart failure Cystic fibrosis Dementia Dysphagia Family history: Allergy Family history: Alzheimer's disease Family history: Asthma Family history: Breast disease Family history: Cardiovascular disease Family history: Coronary thrombosis Family history: Diabetes mellitus Family history: Gastrointestinal disease Family history: Glaucoma Family history: Hypertension Family history: Osteoporosis Family history: Thyroid disorder Heart disease Hereditary disease History of - disorder History of - respiratory disease History of drug abuse Human immunodeficiency virus (HIV) seropositivity Hypercholesterolemia Infertile Kidney disease Malignant neoplasm of lung Myocardial infarction Parkinson's disease Prostate cancer Psychotic disorder Seizure disorder Thyroid disease Tuberculosis Tuberculosis Visual impairment Heart Disease, Stroke, Vascular Disease Physical Exam Vital Signs Capillary Refill : Height, Weight, BMI Height: 5'8.00" Weight: 348lbs. 3.0oz. 157.000268km; 52.9 BMI Method:Stated Procedures/Interventions Date of ETT Placement: July 28, 2017 Time of ETT Placement: 1725 Progress/Results/Core Measures Results/Orders Lab Results Laboratory Tests Test 12/26/18 02:53 Range/Units My Orders Orders - SPENCER COBB DO Cbc With Automated Diff (12/26/18 02:54) Magnesium (12/26/18 02:54) Chest 1 View, Ap/Pa Only (12/26/18 02:54) Ekg Tracing (12/26/18 02:54) Cardiac Profile 1 (12/26/18 02:54) Comprehensive Metabolic Panel (12/26/18 02:54) Myoglobin Serum (12/26/18 02:54) Protime With Inr (12/26/18 02:54) Partial Thromboplastin Time (12/26/18 02:54) O2 (12/26/18 02:54) Monitor-Rhythm Ecg Trace Only (12/26/18 02:54) Lipid Panel (12/27/18 06:00) Ed Iv/Invasive Line Start (12/26/18 02:54) Creatine Kinase (12/26/18 02:54) Creatine Kinase Mb (12/26/18 02:54) Lipase (12/26/18 02:54) Amylase (12/26/18 02:54) BNP (12/26/18 02:54) Nitroglycerin 0.4 Mg Btl 25's (Nitrostat (12/26/18 03:00) Aspirin Chewable Tablet (Baby Aspirin Ch (12/26/18 03:00) Morphine Injection (Morphine Injection (12/26/18 03:30) Medications Given in ED Current Medications Medications Dose Ordered Sig/Arlette Route Start Time Stop Time Status Last Admin Dose Admin Nitroglycerin 0.4 mg UD PRN SL 12/26/18 03:00 12/26/18 03:08 0.4 MG Departure Departure-Patient Inst. Referrals: TAMIKA WHITE DO (PCP/Family) Primary Care Physician SPENCER COBB DO Dec 26, 2018 03:41
[2018-12-26 03:51] LABS: BUN/CREATININE RATIO 23; CARBON DIOXIDE 25 MMOL/L (21-32); CHLORIDE 94 MMOL/L (98-107); CREATININE SERUM 1.56 MG/DL (0.60-1.30); GFR ESTIMATED 44; GLUCOSE 212 MG/DL (70-105); MAGNESIUM 1.7 MG/DL (1.6-2.4); POTASSIUM 3.8 MMOL/L (3.6-5.0); SODIUM 132 MMOL/L (135-145)
[2018-12-26 03:52] LABS: ALANINE AMINOTRANSFERASE 22 U/L (0-55); ALBUMIN 3.6 GM/DL (3.2-4.5); ALKALINE PHOSPHATASE 102 U/L (40-136); AMYLASE 55 U/L (25-125); BILIRUBIN,TOTAL 0.4 MG/DL (0.1-1.0); CREATINE KINASE 91 U/L (30-200); LIPASE 24 U/L (8-78); TOTAL PROTEIN 7.1 GM/DL (6.4-8.2)
[2018-12-26 03:59] LABS: CREATINE KINASE MB 2.6 NG/ML (<6.6)
[2018-12-26] MEDS ORDERED: ENOXAPARIN 60 MG/0.6 ML (LOVENOX) SYR SC ONE (04:30)
[2018-12-26] MEDS ORDERED: ENOXAPARIN 100 MG/1 ML (LOVENOX) SYR SC ONE (04:30)
[2018-12-26] MEDS ORDERED: morphine INJ 10 MG/ML 1ML (SYR OR VIAL) IVP STA (05:29)
--- NOTE | 2018-12-26 05:47 | Diagnostic Imaging Report ---
INDICATION: Chest pain. Comparison with 07/28/2017. FINDINGS: There is chronic elevation of the right hemidiaphragm. The lungs are well-aerated and clear. Heart is mildly enlarged. There is no pulmonary edema. No pneumothorax or pleural effusion. No bony abnormality. IMPRESSION: Normal portable chest Dictated by: Dictated on workstation # [id number]
[2018-12-26 06:05] VITALS: BP 138/82
--- NOTE | 2018-12-26 06:05 | NUR ---
JAYESH LOVE admitted to room 512-1, with an admitting diagnosis of CHEST PAIN, HYPOXIA, RECENT LONG-TERM ANTIBIOTICS FOR LEG CELLULITES AND OSTEOMYLELIS, on 12/26/18 from ED via STRETCHER, accompanied by HOSPITAL STAFF. JAYESH LOVE introduced to surroundings, call light, bed controls, phone, TV, temperature control, lights, meal times, smoking policy, visitor policy, side rail policy, bathrooms and showers. Patient Rights given to patient in the handbook.JAYESH LOVE verbalizes understanding that [facility] is not responsible for the loss or damage to any personal effects or valuables that are kept in the patients posession during their hospitalization. JAYESH LOVE verbalizes understanding of Interdisciplinary Patient Education. Patient and/or family were informed about the Rapid Response Team and its purpose.
[2018-12-26 06:20] VITALS: BP 136/80
[2018-12-26 07:05] VITALS: BP 133/67
[2018-12-26] MEDS ORDERED: CATHETER FLUSH 10 ML SYR IV PRN (07:15)
[2018-12-26] MEDS ORDERED: morphine INJ 4 MG/ML 1 ML (VIAL/SYRINGE) IV PRN (07:15)
--- NOTE | 2018-12-26 07:30 | NUR ---
DR. MARTINEZ NOTIFIED OF CONSULT.
[2018-12-26] MEDS: ENOXAPARIN 120 MG/0.8 ML SQ SCH ×2 (07:53→20:49)
--- NOTE | 2018-12-26 07:53 | NUR ---
DISCUSSED PATIENT'S DVT SCORE WITH DR. WHITE. INFORMED HIM THAT PATIENT DID RECEIVE LOVENOX IN ER. DR. WHITE STATED THAT AFTER THE [facility] REVIEWS PATIENT'S HOME MEDS AND VERIFIES THAT HE IS INDEED ON ELIQUIS, HE WILL RESTART IT FOR DVT PROPH.
--- NOTE | 2018-12-26 07:59 | History & Physical ---
History of Present Illness History of Present Illness Reason for visit/HPI Patient brought by family to the emergency room. Patient had chest pain. According to the chart chest pain in the chest and upper abdomen and lower chest. Patient short-term memory is not good. Patient knows 10-2 = 8 and patient also knows the date. Patient to be evaluated for dementia. Patient been care home for the last under days. Patient treated at [facility] for leg cellulitis and possibly osteomyelitis and has been on antibiotics IV. Patient has a history of diabetes and CAD. Patient has oxygen at home and doesn't use it. Patient lives alone. Children are close by. Date of Admission Dec 26, 2018 at 04:10 Time Seen by a Provider: 07:54 I consulted on this patient on 12/26/18 07:54 Attending Physician Tamika White DO Admitting Physician Tamika White DO Consult Allergies and Home Medications Allergies Coded Allergies: PING Inhibitors (Verified Allergy, Mild, 05/16/15) UNCONTROLLED COUGHING amoxicillin (Verified Allergy, Mild, itching (PT HAS RECEIVED CEFEPIME & ANCEF IN THE PAST), 11/25/15) Home Medications Apixaban 5 Mg Tablet, 5 MG PO BID, (Reported) Aspirin 81 Mg Tablet.dr, 81 MG PO DAILY, (Reported) Atorvastatin Calcium 10 Mg Tablet, 10 MG PO HS, (Reported) Furosemide 40 Mg Tablet, 40 MG PO DAILY, (Reported) Gabapentin 300 Mg Capsule, 300 MG PO BID, (Reported) Hydrocodone Bit/Acetaminophen 1 Each Tablet, 1 TAB PO DAILY, (Reported) Insulin Aspart 300 Units/3 Ml Solution, 4-12 UNITS SC ACHS, (Reported) Insulin Detemir 100 Unit/1 Ml Insuln.pen, 40 UNITS SC BID, (Reported) Magnesium Oxide 400 Mg Tablet, 400 MG PO BID Prescribed by: LIZET FRAZIER on 09/13/16 0803 Multivitamin 1 Each Tablet, 1 TAB PO DAILY, (Reported) Ranitidine HCl 150 Mg Tablet, 150 MG PO BID, (Reported) Patient Home Medication List Home Medication List Reviewed: No Past Hepmngv-Uanogr-Qqsecg Hx Past Med/Social Hx: Reviewed Nursing Past Med/Soc Hx Patient Social History Marrital Status: Employed/Student: retired Recent Foreign Travel: No Contact w/other who traveled: No Recent Hopitalizations: No Recent Infectious Disease Expo: No Immunizations Up To Date Tetanus Booster (TDap): Less than 5yrs Pediatric: Yes Seasonal Allergies Seasonal Allergies: No Past Medical History Surgeries: Cardiac, Coronary Stent, Orthopedic, Tonsillectomy, Vascular Surgery Respiratory: COPD Currently Using CPAP: Yes Currently Using BIPAP: No Cardiac: Chronic Edema/Swelling, Coronary Artery Disease, Heart Attack, High Cholesterol, Hypertension, Irregular Heartbeat, Peripheral Vascular Neurological: Neuropathy Reproductive: No Sexually Transmitted Disease: No HIV/AIDS: No Gastrointestinal: Gastroesophageal Reflux Musculoskeletal: Arthritis Endocrine: Diabetes, Insulin dep Loss of Vision: Denies Hearing Impairment: Denies, Hard of Hearing History of Blood Disorders: No Adverse Reaction to Blood Avila: No Family History Family history: Arthritis 19 FATHER 19 MOTHER Headache 19 FATHER 19 MOTHER Hearing loss 19 MOTHER History of - anemia 19 MOTHER Stroke 19 FATHER No Family History of: AIDS Abdominal aortic aneurysm Abdominal aortic aneurysm Kaz's disease Kaz's disease Alcoholism Alzheimer's disease Aphasia Cancer Cancer of colon Cataract Chest pain Congenital heart disease Congestive heart failure Cystic fibrosis Dementia Dysphagia Family history: Allergy Family history: Alzheimer's disease Family history: Asthma Family history: Breast disease Family history: Cardiovascular disease Family history: Coronary thrombosis Family history: Diabetes mellitus Family history: Gastrointestinal disease Family history: Glaucoma Family history: Hypertension Family history: Osteoporosis Family history: Thyroid disorder Heart disease Hereditary disease History of - disorder History of - respiratory disease History of drug abuse Human immunodeficiency virus (HIV) seropositivity Hypercholesterolemia Infertile Kidney disease Malignant neoplasm of lung Myocardial infarction Parkinson's disease Prostate cancer Psychotic disorder Seizure disorder Thyroid disease Tuberculosis Tuberculosis Visual impairment Heart Disease, Stroke, Vascular Disease Review of Systems Constitutional: weakness, other (Obesity) EENTM: no symptoms reported Respiratory: no symptoms reported Cardiovascular: chest pain Gastrointestinal: no symptoms reported Genitourinary: no symptoms reported Physical Exam Vital Signs Vital Signs - First Documented 12/26/18 02:53 Temp 36.0 Pulse 94 Resp 20 B/P (MAP) 118/72 (87) Pulse Ox 96 O2 Delivery Nasal Cannula O2 Flow Rate 4.00 Capillary Refill : Less Than 3 Seconds Height, Weight, BMI Height: 5'8.00" Weight: 348lbs. 3.0oz. 157.615357ki; 45.96 BMI Method:Stated General Appearance: No Apparent Distress, WD/WN Eyes: Bilateral Eye Normal Inspection HEENT: Normal ENT Inspection Neck: Full Range of Motion, Normal Inspection Respiratory: Lungs Clear, No Accessory Muscle Use, No Respiratory Distress Cardiovascular: Regular Rate, Rhythm, No Murmur Gastrointestinal: Non Tender, Soft Assessment/Plan Assessment and Plan Chest pain. Diabetes. Coronary artery disease. History of cellulitis of leg area Possible history of osteomyelitis For dementia Admission Diagnosis Admission Status: Observation Clinical Quality Measures DVT/VTE Risk/Contraindication: Risk Factor Score Per Nursin RFS Level Per Nursing on Admit: 4+=Very High TAMIKA WHITE DO Dec 26, 2018 07:59
--- NOTE | 2018-12-26 08:08 | NUR ---
WOUND CARE NOTIFIED OF CONSULT.
[2018-12-26] MEDS: inSUlin ASPART (NovoLOG) 1 UNIT/0.01 ML (CHARGE PER UNIT) SC SCH ×4 (08:18→21:36)
[2018-12-26] MEDS: ASPIRIN E.C. 81 MG (ECOTRIN) TAB PO SCH (08:49)
[2018-12-26 09:51] LABS: ALANINE AMINOTRANSFERASE 20 U/L (0-55); ALBUMIN 3.3 GM/DL (3.2-4.5); ALKALINE PHOSPHATASE 93 U/L (40-136); BILIRUBIN,TOTAL 0.4 MG/DL (0.1-1.0); BUN/CREATININE RATIO 24; CALCIUM 8.8 MG/DL (8.5-10.1); CARBON DIOXIDE 27 MMOL/L (21-32); CHLORIDE 96 MMOL/L (98-107); CREATININE SERUM 1.34 MG/DL (0.60-1.30); GFR ESTIMATED 52; GLUCOSE 193 MG/DL (70-105); POTASSIUM 3.9 MMOL/L (3.6-5.0); SODIUM 131 MMOL/L (135-145); TOTAL PROTEIN 6.6 GM/DL (6.4-8.2)
--- NOTE | 2018-12-26 09:53 | NUR ---
CM/SS attempted to speak with the patient in regards to the SS consult. The patient was quite drowsy and dozed off several times in conversation. He did state that he had been at home after a stay at a NH and that he felt it went ok. The patient's daughter is to be in later this day. had wanted the patient screened for Dementia, Referral made for Sly Whiting with [facility] to do this, he will be out this day.
[2018-12-26 10:11] LABS: CARDIAC PROFILE 2 < 0.028 NG/ML (<0.028)
[2018-12-26 12:00] VITALS: BP 96/64
--- NOTE | 2018-12-26 13:05 | NUR ---
REQUESTED THE DISCHARGE INSTRUCTIONS FROM [facility] IN [place] TO BE FAXED OVER AT THIS TIME. PATIENT WAS DISCHARGED THERE 12-22-18. WILL UPDATE MED REC WITH THAT LIST AFTER I RECEIVE IT.
--- NOTE | 2018-12-26 13:23 | Consultation-Cardiology ---
HPI-Cardiology Cardiology Consultation Date of Consultation 12/26/18 Date of Admission Time Seen by Provider: 07:54 Indication: chest pain HPI Patient is a 73 year old male with history of CAD, HTN, HLP, presented to the ER with complaints of chest pain and dyspnea. Reports chest pain was substernal, describing it as a sharp, stabbing pain. Associated dyspnea. Denies any active chest pain at this time. Denies any dizziness or lightheadedness. C/O BLE peripheral edema which is chronic, has been seeing wound care in [place] for BLE non healing wounds. Patient reports he was recently on IV abx for cellulitis, questionable osteomyelitis. 73 years old gentleman with history of coronary artery disease, hypertension and hyperlipidemia, admitted with shortness of breath, chest pain, cough nonproductive. Denied any palpitation, still having nonhealing wound in his legs. Home Medications & Allergies Allergies: Coded Allergies: PING Inhibitors (Verified Allergy, Mild, 05/16/15) UNCONTROLLED COUGHING amoxicillin (Verified Allergy, Mild, itching (PT HAS RECEIVED CEFEPIME & ANCEF IN THE PAST), 11/25/15) Home Medication List Reviewed: Yes LSJ-Setlwn-Lkrhjl Hx Patient Social History Marital Status: Employed/Student: retired Alcohol Use: Denies Use Recreational Drug Use: No Smoking Status: Never a Smoker 2nd Hand Smoke Exposure: No Recent Foreign Travel: No Recent Infectious Disease Expo: No Recent Hopitalizations: No Immunizations Up To Date Tetanus Booster (TDap): Less than 5yrs Past Medical History CAD, SSS, HTN, HLP Family Medical History Significant Family History: Heart Disease, Stroke, Vascular Disease Family History: Family history: Arthritis 19 FATHER 19 MOTHER Headache 19 FATHER 19 MOTHER Hearing loss 19 MOTHER History of - anemia 19 MOTHER Stroke 19 FATHER No Family History of: AIDS Abdominal aortic aneurysm Abdominal aortic aneurysm [place]'s disease [place]'s disease Alcoholism Alzheimer's disease Aphasia Cancer Cancer of colon Cataract Chest pain Congenital heart disease Congestive heart failure Cystic fibrosis Dementia Dysphagia Family history: Allergy Family history: Alzheimer's disease Family history: Asthma Family history: Breast disease Family history: Cardiovascular disease Family history: Coronary thrombosis Family history: Diabetes mellitus Family history: Gastrointestinal disease Family history: Glaucoma Family history: Hypertension Family history: Osteoporosis Family history: Thyroid disorder Heart disease Hereditary disease History of - disorder History of - respiratory disease History of drug abuse Human immunodeficiency virus (HIV) seropositivity Hypercholesterolemia Infertile Kidney disease Malignant neoplasm of lung Myocardial infarction Parkinson's disease Prostate cancer Psychotic disorder Seizure disorder Thyroid disease Tuberculosis Tuberculosis Visual impairment Review of Systems-General Review of Systems Constitutional: see HPI; No diaphoresis, No dizziness; malaise, weakness EENTM: see HPI, no symptoms reported; No blurred vision, No double vision, No vision loss Respiratory: see HPI, dyspnea on exertion; No orthopnea; short of breath; No wheezing Cardiovascular: see HPI, chest pain, edema, Hx of Intervention; No palp itations, No syncope; vascular heart diseas Gastrointestinal: no symptoms reported, see HPI; No abdominal pain, No constipation Genitourinary: no symptoms reported, see HPI; No dysuria, No frequency Musculoskeletal: see HPI; No back pain, No joint swelling Skin: see HPI; No dryness, No lesions Psychiatric/Neurological: See HPI; Denies Anxiety, Denies Depressed Reviewed Test Results Reviewed Test Results Lab Laboratory Tests 12/26/18 02:53: White Blood Count 7.1, Red Blood Count 4.26L, Hemoglobin 11.6L, Hematocrit 35L, Mean Corpuscular Volume 82, Mean Corpuscular Hemoglobin 27, Mean Corpuscular Hemoglobin Concent 33, Red Cell Distribution Width 16.7H, Platelet Count 210, Mean Platelet Volume 11.0H, Neutrophils (%) (Auto) 69, Lymphocytes (%) (Auto) 16, Monocytes (%) (Auto) 11, Eosinophils (%) (Auto) 4, Basophils (%) (Auto) 0, Neutrophils # (Auto) 4.9, Lymphocytes # (Auto) 1.1, Monocytes # (Auto) 0.8, Eosinophils # (Auto) 0.3, Basophils # (Auto) 0.0, Prothrombin Time 14.1, INR Comment 1.1, Activated Partial Thromboplast Time 41H, Sodium Level 132L, Potassium Level 3.8, Chloride Level 94L, Carbon Dioxide Level 25, Anion Gap 13, Blood Urea Nitrogen 36H, Creatinine 1.56H, Estimat Glomerular Filtration Rate 44, BUN/Creatinine Ratio 23, Glucose Level 212H, Calcium Level 9.0, Corrected Calcium 9.3, Magnesium Level 1.7, Total Bilirubin 0.4, Aspartate Amino Transf (AST/SGOT) 35H, Alanine Aminotransferase (ALT/SGPT) 22, Alkaline Phosphatase 102, Total Creatine Kinase 91, Creatine Kinase MB 2.6, Myoglobin 128.1H, Troponin I < 0.028, B-Type Natriuretic Peptide 109.6H, Total Protein 7.1, Albumin 3.6, Amylase Level 55, Lipase 24 12/26/18 09:20: Sodium Level 131L, Potassium Level 3.9, Chloride Level 96L, Carbon Dioxide Level 27, Anion Gap 8, Blood Urea Nitrogen 32H, Creatinine 1.34H, Estimat Glomerular Filtration Rate 52, BUN/Creatinine Ratio 24, Glucose Level 193H, Calcium Level 8.8, Corrected Calcium 9.4, Total Bilirubin 0.4, Aspartate Amino Transf (AST/SGOT) 31, Alanine Aminotransferase (ALT/SGPT) 20, Alkaline Phosphatase 93, Troponin I < 0.028, Total Protein 6.6, Albumin 3.3, Thyroid Stimulating Hormone (TSH) 1.45 ECG Impression ECG Initial ECG Rhythm: Normal Sinus Physical Exam Physical Exam Vital Signs Vital Signs - First Documented 12/26/18 02:53 Temp 36.0 Pulse 94 Resp 20 B/P (MAP) 118/72 (87) Pulse Ox 96 O2 Delivery Nasal Cannula O2 Flow Rate 4.00 Capillary Refill : Less Than 3 Seconds Height, Weight, BMI Height: 5'8.00" Weight: 348lbs. 3.0oz. 157.817723sp; 45.96 BMI Method:Stated General Appearance: No Apparent Distress, WD/WN Eyes: Bilateral Eye Normal Inspection HEENT: Normal ENT Inspection Neck: Full Range of Motion, Normal Inspection Respiratory: Lungs Clear, No Accessory Muscle Use, No Respiratory Distress Cardiovascular: Regular Rate, Rhythm, No Edema, No Murmur, Other (BLE with C/D/I dressing. +1 edema) Gastrointestinal: Normal Bowel Sounds, Non Tender, Soft Rectal: Normal Exam, Deferred Back: No CVA Tenderness Extremity: Non Tender, No Calf Tenderness, Pedal Edema Neurologic/Psychiatric: Alert, Oriented x3, hand shaper II-XII Norm as Tested A/P-Cardiology Admission Diagnosis Chest pain Dyspnea CAD HTN Assessment/Plan Chest pain, nonspecific etiology, EKG reveals no acute ST changes. Troponin negative. Was scheduled for stress test in September 2018, however it was cx d/t patient being hospitalized at [place]. Planning for stress test in the morning. Dyspnea, angina equivalent, planning to evaluate Lexiscan stress test in the morning Coronary artery disease, history of a stent done in June 2006 using ultra 4.518 mm bare-metal stent to the LAD, another stent done in December 2009 using Promus 3.012 mm distal right coronary artery. Coronary angiogram done in July 2016 showed patent stent in the coronary system with [id number] disease, occlusion of a small branch of the circumflex artery which is very small artery getting filled by collaterals. Planning to evaluate stress test. BLE wounds, recent cellulitis-patient had CTA of abdominal aorta with runoff suggestive of stenosis at the right anterior tibial artery. Peripheral angiogram showed [id number] disease, slow flow due to small vessel disease. It appears that he has venous stasis ulceration bilaterally. Last angiogram was done in July 2016. NICK's done Dec 2017. Following with wound care in [place]. Reports treated for cellulitis and questionable osteomyelitis recently. Syncope/near syncopal episode, severe weakness due to severe bradycardia, improved after discontinuing atenolol and amiodarone. Continue to monitor. Sick sinus syndrome/sinus pause with escape junctional rhythm with heart rate in the 30s, underlying sinus node dysfunction is present probably exacerbated by atenolol and amiodarone which was stopped. Heart rate improved. Questionable paroxysmal atrial flutter, Holter monitor was done in November 2016 and showed sinus rhythm with 6 beats nonsustained ventricular tachycardia with occasional atrial and ventricular premature contractions. Has been asymptomatic. Continue to monitor [id number] score of 4, yearly risk of stroke without oral anticoagulation is 4.2 percent. Maintained on Eliquis 5mg BID Hypertension-controlled. Continue to monitor blood pressure/heart rate. Hyperlipidemia, I will evaluated lipids Carotid stenosis, status post carotid endarterectomy done by Dr. Pineda in July 2014, most recent carotid duplex February 2018 showing moderate disease on the right, mild disease on the left. Continue to monitor. 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 Gastroesophageal reflux disease. Thank you for allowing us to participate in the management of Mr. Cho. This is Urvashi Ball PA-C, as a scribe for Dr. Kamara. Patient was seen and evaluated with Urvashi, examination performed, management plan was discussed, agree with the current scribed note, I made few changes to the note using Italic font Patient is feeling that her, no further episode of chest pain were reported, I am planning to proceed with stress test tomorrow Still having shortness of breath with some cough nonproductive at this time. Monitor chest x-ray. Continue on bronchodilators. Nonhealing wound of his legs, known to have mild to moderate peripheral arterial disease nonobstructive disease Clinical Quality Measures AMI/AHF: ASA po Prior to arrival: Yes (324) DVT/VTE Risk/Contraindication: Risk Factor Score Per Nursin RFS Level Per Nursing on Admit: 4+=Very High Contraindications-Pharm: Other *list below* URVASHI SOLIS Dec 26, 2018 13:23 CAROL KAMARA MD Dec 26, 2018 14:18
[2018-12-26] MEDS: CATHETER FLUSH 10 ML SYR IV SCH ×2 (14:00→22:06)
[2018-12-26] MEDS ORDERED: IPRA3AMP31 NEB (14:04)
[2018-12-26] MEDS ORDERED: LORA10TA7 PO (14:04)
[2018-12-26] MEDS ORDERED: BALS60OI TP (14:04)
[2018-12-26] MEDS ORDERED: SERT50TA2 PO (14:04)
[2018-12-26] MEDS ORDERED: BUME1TAB8 PO (14:04)
[2018-12-26] MEDS ORDERED: GUAI5SYR PO (14:04)
[2018-12-26] MEDS ORDERED: DULA0.75 SQ (14:04)
[2018-12-26] MEDS ORDERED: INSU100I34 SC (14:04)
[2018-12-26] MEDS ORDERED: MULT1TAB69 PO (14:04)
[2018-12-26] MEDS ORDERED: INSU100I34 SQ (14:04)
--- NOTE | 2018-12-26 14:08 | NUR ---
SPOKE WITH THE PATIENT THIS MORNING ABOUT HIS MEDICATIONS. HE DOES NOT KNOW THE NAMES OF THEM WELL BUT STATES HE GETS THEM FROM [facility]. WHEN I CALLED [facility] FOR A LIST OF RECENTLY FILLED MEDICATIONS THE PHARMACIST MENTIONED THE PATIENT WAS RECENTLY DISCHARGED FROM A [facility] IN [place]. I HAD A LIST OF MEDS FAXED FROM [facility] BUT ALSO CALLED AND VERIFIED WITH [facility] IN [place] THAT THE PATIENT WAS ADMITTED THERE 10-19-18 AND RECENTLY DISCHARGED ON 12-22-18. I HAD THEM FAX OVER A LIST OF MEDICATIONS THE PATIENT WAS ON AT DISCHARGE AND UPDATED THE MED REC WITH THAT LIST. [facility] DID DISPENSE THIS WEEK BUMEX, DUONEB, LIPITOR, NOVOLOG, AND ZOLOFT. PATIENT HAD PREVIOUSLY FILLED BASAGLAR AND OZEMPIC. PAPERWORK FROM [facility] SHOWS THE BASAGLAR AND TRULICITY. PATIENT HAD ALSO PREVIOUSLY FILLED RANITIDINE AT [facility]. WHEN I ASKED THE PATIENT ABOUT ELIQUIS, PRIOR TO KNOWING HE HAD BEEN IN A [facility], HE STATES HE WAS PRESCRIBED IT SOME TIME AGO AND IT WAS VERY EXPENSIVE. HE WAS ABLE TO GET IT FILLED WITH A COUPON/VOUCHER ONE TIME BUT THEN WAS UNABLE TO KEEP GETTING IT. HE STATES HE HAS NOT TAKE IT FOR SEVERAL MONTHS. ACCORDING TO [facility] THEY FILLED IT FOR HIM IN DECEMBER 2017 AND AGAIN 02-03-18 FOR THE 2.5MG. IT WAS NOT ON THE LIST OF MEDICATIONS FROM [facility] AND NOT ADDED TO THE MED REC AT THIS TIME.
[2018-12-26] MEDS ORDERED: REGADENOSON 0.4 MG/5 ML SYR (LEXISCAN) IV ONE (14:30)
[2018-12-26] MEDS ORDERED: RT-ALBUTEROL/IPRATROPIUM 3 ML (DUONEB) VIAL IH PRN (14:30)
[2018-12-26] MEDS ORDERED: guaiFENesin/DM (ROBITUSSIN DM) 10 ML UDC PO PRN (14:45)
[2018-12-26 16:00] VITALS: BP 108/56
[2018-12-26 20:00] VITALS: BP 108/53
[2018-12-26] MEDS: FAMOTIDINE 20 MG (PEPCID) TABLET PO SCH (20:50)
--- NOTE | 2018-12-26 21:00 | Wound Care Assessment ---
Wound Care Assessment Date Seen by Provider: Dec 26, 2018 Time Seen by Provider: 20:40 Chief Complaint Excoriation R buttock HPI The patient is a 73 year old male with long-standing venous insufficiency ulcers, currently well treated with Profore compression per [facility], and excoriation of R buttock due to moisture. He is incontinent of stool. Barrier cream ordered. Continue leg dressings as per [facility], and at discharge should continue to follow with [facility] for continued management. Past Medical History: Admits Diabetes Type II, Admits Heart Disease (and COPD) Smoking Status: Never a Smoker Recreational Drug Use: No Alcohol Use: Denies Use Review of Systems Pulmonary: Dyspnea, Cough Cardiovascular: No: Chest Pain Exam Vital Signs Date Time Temp Pulse Resp B/P (MAP) Pulse Ox O2 Delivery O2 Flow Rate FiO2 12/26/18 20:00 36.2 86 20 108/53 (71) 96 Room Air 12/26/18 16:00 0.00 Capillary Refill : Less Than 3 Seconds General Appearance: no apparent distress Neck: normal inspection Skin: other (Small area of excoriation consistent with moisture irritation R buttock.) Results Laboratory Tests 12/26/18 02:53: White Blood Count 7.1, Red Blood Count 4.26L, Hemoglobin 11.6L, Hematocrit 35L, Mean Corpuscular Volume 82, Mean Corpuscular Hemoglobin 27, Mean Corpuscular Hemoglobin Concent 33, Red Cell Distribution Width 16.7H, Platelet Count 210, Mean Platelet Volume 11.0H, Neutrophils (%) (Auto) 69, Lymphocytes (%) (Auto) 16, Monocytes (%) (Auto) 11, Eosinophils (%) (Auto) 4, Basophils (%) (Auto) 0, Neutrophils # (Auto) 4.9, Lymphocytes # (Auto) 1.1, Monocytes # (Auto) 0.8, Eosinophils # (Auto) 0.3, Basophils # (Auto) 0.0, Prothrombin Time 14.1, INR Comment 1.1, Activated Partial Thromboplast Time 41H, Sodium Level 132L, Potassium Level 3.8, Chloride Level 94L, Carbon Dioxide Level 25, Anion Gap 13, Blood Urea Nitrogen 36H, Creatinine 1.56H, Estimat Glomerular Filtration Rate 44, BUN/Creatinine Ratio 23, Glucose Level 212H, Calcium Level 9.0, Corrected Calcium 9.3, Magnesium Level 1.7, Total Bilirubin 0.4, Aspartate Amino Transf (AST/SGOT) 35H, Alanine Aminotransferase (ALT/SGPT) 22, Alkaline Phosphatase 102, Total Creatine Kinase 91, Creatine Kinase MB 2.6, Myoglobin 128.1H, Troponin I < 0.028, B-Type Natriuretic Peptide 109.6H, Total Protein 7.1, Albumin 3.6, Amylase Level 55, Lipase 24 12/26/18 09:20: Sodium Level 131L, Potassium Level 3.9, Chloride Level 96L, Carbon Dioxide Level 27, Anion Gap 8, Blood Urea Nitrogen 32H, Creatinine 1.34H, Estimat Glomerular Filtration Rate 52, BUN/Creatinine Ratio 24, Glucose Level 193H, Calcium Level 8.8, Corrected Calcium 9.4, Total Bilirubin 0.4, Aspartate Amino Transf (AST/SGOT) 31, Alanine Aminotransferase (ALT/SGPT) 20, Alkaline Phosphatase 93, Troponin I < 0.028, Total Protein 6.6, Albumin 3.3, Thyroid Stimulating Hormone (TSH) 1.45 Assessment/Plan/Dx 1. Moisture associated skin damage, R buttock. 2. Venous insufficiency ulcer BLE, treated with Porfore compression. Plan: Barrier cream to perineum, continue same dressings to legs. Will see again as needed. PRADIP MADISON MD Dec 26, 2018 21:00
[2018-12-26] MEDS: ZINC OXIDE 16% OINT (BUTT PASTE) 113 GM TUBE TOP SCH (22:06)
[2018-12-27] VITALS (8 sets, daily range): BP systolic 108–118; BP diastolic 58–73
[2018-12-27 00:27] LABS: CLARITY,URINE SL CLOUDY; COLOR,URINE YELLOW; PH,URINE 5 (5-9)
[2018-12-27 00:28] LABS: BACTERIA,URINE FEW /HPF; BILIRUBIN,URINE NEGATIVE (NEGATIVE); GLUCOSE, URINE (UA) NEGATIVE (NEGATIVE); KETONES,URINE NEGATIVE (NEGATIVE); LEUKOCYTE ESTERASE ,URINE 3+ (NEGATIVE); NITRITE,URINE NEGATIVE (NEGATIVE); PROTEIN,URINE 2+ (NEGATIVE)
[2018-12-27 00:29] LABS: YEAST,URINE MODERATE /HPF
[2018-12-27 04:07] LABS: HEMATOCRIT 32 % (40-54); HEMOGLOBIN 10.5 G/DL (13.3-17.7); MEAN CORPUSCULAR HEMOGLOBIN 27 PG (25-34); MEAN CORPUSCULAR HGB CONC 33 G/DL (32-36); MEAN CORPUSCULAR VOLUME 83 FL (80-99); MEAN PLATELET VOLUME 10.6 FL (7.4-10.4); PLATELET COUNT 188 10^3/uL (130-400); RED CELL DISTRIBUTION WIDTH 16.7 % (10.0-14.5); WHITE BLOOD COUNT 6.4 10^3/uL (4.3-11.0)
[2018-12-27 04:54] LABS: ALBUMIN 3.2 GM/DL (3.2-4.5); BILIRUBIN,TOTAL 0.4 MG/DL (0.1-1.0); CALCIUM 8.9 MG/DL (8.5-10.1); CREATININE SERUM 1.31 MG/DL (0.60-1.30); POTASSIUM 3.9 MMOL/L (3.6-5.0); TOTAL PROTEIN 6.4 GM/DL (6.4-8.2)
[2018-12-27] MEDS: CATHETER FLUSH 10 ML SYR IV SCH ×3 (05:23→22:00)
[2018-12-27] MEDS: inSUlin ASPART (NovoLOG) 1 UNIT/0.01 ML (CHARGE PER UNIT) SC SCH ×2 (05:23→23:25)
[2018-12-27] MEDS: ENOXAPARIN 120 MG/0.8 ML SQ SCH (06:05)
[2018-12-27] MEDS ORDERED: REGADENOSON 0.4 MG/5 ML SYR (LEXISCAN) IV ONE (07:46)
--- NOTE | 2018-12-27 08:25 | Progress Note ---
Subjective Time Seen by a Provider: 08:23 Subjective/Events-last exam Patient feeling better today. No chest pain. No dyspnea. Patient having a stress test this morning Objective Exam Vital Signs Date Time Temp Pulse Resp B/P (MAP) Pulse Ox O2 Delivery O2 Flow Rate FiO2 12/27/18 07:49 95 16 116/62 (80) 94 Room Air 12/27/18 07:00 112 12/27/18 04:00 36.9 82 18 109/69 (82) 93 Room Air 12/27/18 03:01 93 Nasal Cannula 1.00 12/27/18 00:57 80 12/27/18 00:00 36.3 82 16 117/73 (88) 98 Nasal Cannula 1.00 12/27/18 00:00 93 Nasal Cannula 1.00 12/26/18 21:00 93 Room Air 12/26/18 20:00 36.2 86 20 108/53 (71) 96 Room Air 12/26/18 20:00 93 Room Air 12/26/18 19:01 80 12/26/18 16:00 36.3 87 17 108/56 (73) 94 Room Air 0.00 12/26/18 16:00 93 Nasal Cannula 1.00 12/26/18 13:00 75 12/26/18 12:00 93 Nasal Cannula 1.00 12/26/18 12:00 36.1 77 17 96/64 (75) 97 Nasal Cannula 1.00 12/26/18 09:02 Nasal Cannula 2.00 12/26/18 09:00 93 Nasal Cannula 1.00 I & O 12/27/18 07:00 Intake Total 600 ml Output Total 850 ml Balance -250 ml Capillary Refill : Less Than 3 Seconds General Appearance: No Apparent Distress, WD/WN Neck: Full Range of Motion, Normal Inspection Respiratory: Lungs Clear, No Accessory Muscle Use, No Respiratory Distress Cardiovascular: Regular Rate, Rhythm, No Murmur Gastrointestinal: non tender, soft Results Lab Laboratory Tests 12/26/18 09:20 12/27/18 03:50 Laboratory Tests 12/26/18 09:20: Sodium Level 131L, Potassium Level 3.9, Chloride Level 96L, Carbon Dioxide Level 27, Anion Gap 8, Blood Urea Nitrogen 32H, Creatinine 1.34H, Estimat Glomerular Filtration Rate 52, BUN/Creatinine Ratio 24, Glucose Level 193H, Mean Blood Glucose 206H, Hemoglobin A1c 8.8H, Calcium Level 8.8, Corrected Calcium 9.4, Total Bilirubin 0.4, Aspartate Amino Transf (AST/SGOT) 31, Alanine Aminotransferase (ALT/SGPT) 20, Alkaline Phosphatase 93, Troponin I < 0.028, Total Protein 6.6, Albumin 3.3, Vitamin B12 Level 384, Folate 15.9, Thyroid Stimulating Hormone (TSH) 1.45 12/26/18 22:47: Urine Color YELLOW, Urine Clarity SL CLOUDY, Urine pH 5, Urine Specific [place] 1.015L, Urine Protein 2+H, Urine Glucose (UA) NEGATIVE, Urine Ketones NEGATIVE, Urine Nitrite NEGATIVE, Urine Bilirubin NEGATIVE, Urine Urobilinogen NORMAL, Urine Leukocyte Esterase 3+H, Urine RBC (Auto) 3+H, Urine RBC 2-5H, Urine WBC 10-25H, Urine Crystals NONE, Urine Bacteria FEWH, Urine Casts NONE, Urine Mucus NEGATIVE, Urine Yeast MODERATEH, Urine Culture Indicated YES 12/27/18 03:50: Sodium Level 135, Potassium Level 3.9, Chloride Level 98, Carbon Dioxide Level 25, Anion Gap 12, Blood Urea Nitrogen 30H, Creatinine 1.31H, Estimat Glomerular Filtration Rate 53, BUN/Creatinine Ratio 23, Glucose Level 123H, Calcium Level 8.9, Corrected Calcium 9.5, Total Bilirubin 0.4, Aspartate Amino Transf (AST/S GOT) 27, Alanine Aminotransferase (ALT/SGPT) 15, Alkaline Phosphatase 68, Total Protein 6.4, Albumin 3.2, White Blood Count 6.4, Red Blood Count 3.89L, Hemoglobin 10.5L, Hematocrit 32L, Mean Corpuscular Volume 83, Mean Corpuscular Hemoglobin 27, Mean Corpuscular Hemoglobin Concent 33, Red Cell Distribution Width 16.7H, Platelet Count 188, Mean Platelet Volume 10.6H Assessment/Plan Assessment/Plan Assess & Plan/Chief Complaint Chest pain. Dyspnea. Osteomyelitis history. Diabetes history. Hyperlipidemia. Venous insufficiency leg Clinical Quality Measures Admission Status Admission Dx Chest pain. Diabetes. Coronary artery disease. History of cellulitis of leg area Possible history of osteomyelitis For dementia AMI/AHF: ASA po Prior to arrival: Yes (324) DVT/VTE Risk/Contraindication: Risk Factor Score Per Nursin RFS Level Per Nursing on Admit: 4+=Very High Contraindications-Pharm: Other *list below* TAMIKA WHITE DO Dec 27, 2018 08:25
--- NOTE | 2018-12-27 09:11 | NUR ---
CM/SS spoke with [facility] to see if patient had been evaluated yesterday, left a message with call back information.
[2018-12-27] MEDS: BUMETANIDE 1 MG (BUMEX) TAB PO SCH (09:30)
[2018-12-27] MEDS: MULTIVIT W/MINERALS TAB (THERAGRAN M) PO SCH (09:30)
[2018-12-27] MEDS: ASPIRIN E.C. 81 MG (ECOTRIN) TAB PO SCH (09:30)
[2018-12-27] MEDS: LORATADINE (CLARITIN) 10 MG TAB PO SCH (09:30)
[2018-12-27] MEDS: ZINC OXIDE 16% OINT (BUTT PASTE) 113 GM TUBE TOP SCH ×2 (09:30→21:00)
[2018-12-27] MEDS: SERTRALINE 50 MG (ZOLOFT) TABLET PO SCH (09:30)
[2018-12-27 09:41] LABS: BASOPHILS % (AUTO) 1 % (0-10); EOSINOPHILS # (AUTO) 0.4 10^3/uL (0.0-0.3); EOSINOPHILS % (AUTO) 7 % (0-10); LYMPHOCYTES # (AUTO) 1.3 X 10^3 (1.0-4.0); LYMPHOCYTES % (AUTO) 20 % (12-44); MONOCYTES # (AUTO) 0.6 X 10^3 (0.0-1.0); MONOCYTES % (AUTO) 10 % (0-12); NEUTROPHILS % (AUTO) 63 % (42-75)
--- NOTE | 2018-12-27 11:46 | NUR ---
CM/SS DERECK called back and Cecilia did evaluate the patient, report left on chart. Attempts to call patient's daughter x2, message left with call back number. Spoke with patient's son and he was not sure of plan, was also going to have his sister return call. Addendum: 12/27/18 at 1205 by LEONORA MERAZ Spoke with the daughter (Elina). He had been at [facility] for 100 days and then just recently was discharged home. Family is considering long-term placement as understand he should not be living home alone. She discussed possible friend coming to live with him or long-term care facility. Elina was familiar with the SNF in the area and was going to call and discuss finances with them and then call back.
--- NOTE | 2018-12-27 12:40 | Cardiology Progress Note ---
Subjective Date Seen by Provider: Dec 27, 2018 Time Seen by Provider: 12:38 Subjective/Events-last exam Patient was seen and evaluated, laying down in bed, denied any chest pain Review of Systems General: No Chills, No Night Sweats; Fatigue, Malaise; No Appetite, No Other HEENT: No Head Aches, No Visual Changes, No Eye Pain, No Ear Pain, No Dysphasia, No Sinus Congestion, No Post Nasal Drip, No Sore Throat, No Other Pulmonary: No Dyspnea, No Cough, No Pleuritic Chest Pain, No Other Cardiovascular: No: Chest Pain, Palpitations, Orthopnea, Paroxysmal Noc. Dyspnea, Edema, Lt Headedness, Other Objective-Cardiology Exam Last Set of Vital Signs Vital Signs 12/27/18 12/27/18 12/27/18 12/27/18 04:00 07:49 09:05 12:31 Temp 36.9 Pulse 75 Resp 16 B/P (MAP) 116/62 (80) Pulse Ox 93 O2 Delivery Nasal Cannula O2 Flow Rate 1.00 Capillary Refill : Less Than 3 Seconds I&O Intake and Output 12/27/18 00:00 Intake Total 600 ml Output Total 350 ml Balance 250 ml Intake Oral 600 ml Output Urine Total 350 ml # Urine Diapers 2 # Bowel Movements 1 Daily Weight Change No No General: Alert, Oriented X3, Cooperative HEENT: Atraumatic, PERRLA Neck: Supple, No JVD, No Thyromegaly Lungs: Clear to Auscultation, Normal Air Movement Heart: Regular Rate, Normal S1, Normal S2, Other (Start murmur at the left sternal border) Abdomen: Normal Bowel Sounds, Soft, No Tenderness, No Hepatosplenomegaly, No Masses Extremities: No Clubbing, No Cyanosis, No Edema, Normal Pulses, No Tenderness/ Swelling Skin: No Rashes, No Breakdown, No Significant Lesion Neuro: Normal Gait, Normal Speech, Strength at 5/5 X4 Ext, Normal Tone, Sensation Intact Psych/Mental Status: Mental Status NL, Mood NL Results Lab Laboratory Tests 12/27/18 03:50 A/P-Cardiology Admission Diagnosis Chest pain Dyspnea CAD HTN Assessment/Plan Chest pain, nonspecific etiology, EKG reveals no acute ST changes, stress test showed reversible ischemia involving the mid to apical inferior wall true apex and anteroapical segment, planning to proceed with cardiac catheterization possible PTCA Dyspnea, angina equivalent, planning to evaluate Lexiscan stress test in the morning Coronary artery disease, history of a stent done in June 2006 using ultra 4.5 18 mm bare-metal stent to the LAD, another stent done in December 2009 using Promus 3.012 mm distal right coronary artery. Coronary angiogram done in July 2016 showed patent stent in the coronary system with [id number] disease, occlusion of a small branch of the circumflex artery which is very small artery getting filled by collaterals, have an abnormal stress test, planning for cardiac catheterization BLE wounds, recent cellulitis-patient had CTA of abdominal aorta with runoff suggestive of stenosis at the right anterior tibial artery. Peripheral angiogram showed [id number] disease, slow flow due to small vessel disease. It appears that he has venous stasis ulceration bilaterally. Last angiogram was done in July 2016. NICK's done Dec 2017. Following with wound care in [place]. Reports treated for cellulitis and questionable osteomyelitis recently. Syncope/near syncopal episode, severe weakness due to severe bradycardia, improved after discontinuing atenolol and amiodarone. Continue to monitor. Sick sinus syndrome/sinus pause with escape junctional rhythm with heart rate in the 30s, underlying sinus node dysfunction is present probably exacerbated by atenolol and amiodarone which was stopped. Heart rate improved. Questionable paroxysmal atrial flutter, Holter monitor was done in November 2016 and showed sinus rhythm with 6 beats nonsustained ventricular tachycardia with occasional atrial and ventricular premature contractions. Has been asymptomatic. Continue to monitor [id number] score of 4, yearly risk of stroke without oral anticoagulation is 4.2 percent. Maintained on Eliquis 5mg BID Hypertension-controlled. Continue to monitor blood pressure/heart rate. Hyperlipidemia, I will evaluated lipids Carotid stenosis, status post carotid endarterectomy done by Dr. Pineda in July 2014, most recent carotid duplex February 2018 showing moderate disease on the right, mild disease on the left. Continue to monitor. 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 Gastroesophageal reflux disease. Clinical Quality Measures AMI/AHF: ASA po Prior to arrival: Yes (324) DVT/VTE Risk/Contraindication: Risk Factor Score Per Nursin RFS Level Per Nursing on Admit: 4+=Very High Contraindications-Pharm: Other *list below* MICHELLE,BASHAR J MD Dec 27, 2018 12:40
--- NOTE | 2018-12-27 14:50 | STRESS TEST ---
DATE OF SERVICE: 12/27/2018 LEXISCAN MYOVIEW STRESS TEST REFERRING PHYSICIAN: Marko Bunch DO Baseline heart rate is 82. Baseline blood pressure is 116/62. Baseline EKG is sinus rhythm with no ischemic changes. In summary, the patient was injected with 10.51 mCi of technetium-99 Myoview and the resting images were obtained. Then, the patient received 0.4 mg of Lexiscan followed by 29.7 mCi of technetium-99 Myoview. Throughout the test, there were no EKG changes. The resting and stress images were reviewed and compared in the short axis, horizontal long axis, and vertical long axis views. Review of the images showed reversible ischemia involving the mid to apical inferior wall, true apex and anteroapical segment. SSS is 17 SDS 15, TID value 1.19. On the gated images, the left ventricle appeared to be prominent with end diastolic volume of 13 mm, diffuse left ventricular hypokinesia with calculated ejection fraction 43%. CONCLUSION: 1. The patient tolerated Lexiscan well. 2. Reversible ischemia involving the mid to apical inferior wall, true apex and anteroapical segment. 3. Prominent left ventricle with diffuse left ventricular hypokinesia, more pronounced at the apex and anteroapical segment. Calculated ejection fraction is 43%. Job ID: [id number] DocumentID: [id number] Dictated Date: 12/27/2018 11:58:37 Lead Man [employer] Date: 12/27/2018 14:50:15 Dictated By: CAROL MARTINEZ MD
[2018-12-27] MEDS ORDERED: NS IV 1000 ML 1,000 ML ONE (15:02)
[2018-12-27] MEDS: ENOXAPARIN 300 MG/3 ML (LOVENOX) MULTI-DOSE VIAL SQ SCH (20:42)
[2018-12-27] MEDS: FAMOTIDINE 20 MG (PEPCID) TABLET PO SCH ×2 (21:00→23:11)
--- NOTE | 2018-12-27 23:00 | NUR ---
PEPCID 20MG GIVEN AT 2300 BY THIS RN. BARCODE SCANNER NOT USED DUE TO SCANNER IN PT ROOM NOT WORKING. PEPCID 20MG NOT FLAGGING THAT IT WAS GIVEN AT THIS TIME ON .
[2018-12-28] VITALS (14 sets, daily range): BP systolic 113–145; BP diastolic 67–81
[2018-12-28] MEDS: NS IV 1000 ML 1,000 ML IV SCH ×4 (01:09→20:38)
[2018-12-28] MEDS: inSUlin ASPART (NovoLOG) 1 UNIT/0.01 ML (CHARGE PER UNIT) SC SCH ×4 (06:30→20:41)
[2018-12-28] MEDS: CATHETER FLUSH 10 ML SYR IV SCH ×3 (06:30→22:04)
[2018-12-28] MEDS ORDERED: HEParin (CATH LAB) 2,000 ML IV ONE (06:45)
[2018-12-28] MEDS ORDERED: LIDOCAINE 1% INJ 20 ML 20 ML VIAL ONE (06:45)
--- NOTE | 2018-12-28 07:34 | Cardiology Progress Note ---
Subjective Date Seen by Provider: Dec 28, 2018 Time Seen by Provider: 07:33 Subjective/Events-last exam Patient is laying down in bed, denied any chest pain or shortness of breath Review of Systems General: No Chills, No Night Sweats, No Fatigue, No Malaise, No Appetite, No Other HEENT: No Head Aches, No Visual Changes, No Eye Pain, No Ear Pain, No Dysphasia, No Sinus Congestion, No Post Nasal Drip, No Sore Throat, No Other Pulmonary: No Dyspnea, No Cough, No Pleuritic Chest Pain, No Other Cardiovascular: No: Chest Pain, Palpitations, Orthopnea, Paroxysmal Noc. Dyspnea, Edema, Lt Headedness, Other Objective-Cardiology Exam Last Set of Vital Signs Vital Signs 12/28/18 04:00 Temp 36.5 Pulse 80 Resp 18 B/P (MAP) 138/81 (100) Pulse Ox 91 O2 Delivery Room Air Capillary Refill : Less Than 3 Seconds I&O Intake and Output 12/28/18 00:00 Intake Total 722 ml Output Total 1540 ml Balance -818 ml Intake Oral 722 ml Output Urine Total 1540 ml # Voids 2 General: Alert, Oriented X3, Cooperative HEENT: Atraumatic, PERRLA Neck: Supple, No JVD, No Thyromegaly Lungs: Clear to Auscultation, Normal Air Movement Heart: Regular Rate, Normal S1, Normal S2, Other (Start murmur at the left sternal border) Abdomen: Normal Bowel Sounds, Soft, No Tenderness, No Hepatosplenomegaly, No Masses Extremities: No Clubbing, No Cyanosis, No Edema, Normal Pulses, No Tenderness/Swelling Skin: No Rashes, No Breakdown, No Significant Lesion Neuro: Normal Gait, Normal Speech, Strength at 5/5 X4 Ext, Normal Tone, Sensation Intact Psych/Mental Status: Mental Status NL, Mood NL A/P-Cardiology Admission Diagnosis Chest pain Dyspnea CAD HTN Assessment/Plan Chest pain, nonspecific etiology, EKG reveals no acute ST changes, stress test showed reversible ischemia involving the mid to apical inferior wall true apex and anteroapical segment, planning to proceed with cardiac catheterization possible PTCA Dyspnea, angina equivalent, abnormal stress test, planning for cardiac catheterization. Coronary artery disease, history of a stent done in June 2006 using ultra 4.518 mm bare-metal stent to the LAD, another stent done in December 2009 using Promus 3.012 mm distal right coronary artery. Coronary angiogram done in July 2016 showed patent stent in the coronary system with [id number] disease, occlusion of a small branch of the circumflex artery which is very small artery getting filled by collaterals, have an abnormal stress test, planning for cardiac catheterization BLE wounds, recent cellulitis-patient had CTA of abdominal aorta with runoff suggestive of stenosis at the right anterior tibial artery. Peripheral angiogram showed [id number]-[id number]-[id number] disease, slow flow due to small vessel disease. It appears that he has venous stasis ulceration bilaterally. Last angiogram was done in July 2016. NICK's done Dec 2017. Following with wound care in [place]. Reports treated for cellulitis and questionable osteomyelitis recently. Syncope/near syncopal episode, severe weakness due to severe bradycardia, improved after discontinuing atenolol and amiodarone. Continue to monitor. Sick sinus syndrome/sinus pause with escape junctional rhythm with heart rate in the 30s, underlying sinus node dysfunction is present probably exacerbated by atenolol and amiodarone which was stopped. Heart rate improved. Questionable paroxysmal atrial flutter, Holter monitor was done in November 2016 and showed sinus rhythm with 6 beats nonsustained ventricular tachycardia with occasional atrial and ventricular premature contractions. Has been asymptomatic. Continue to monitor [id number] score of 4, yearly risk of stroke without oral anticoagulation is 4.2 percent. Maintained on Eliquis 5mg BID Hypertension-controlled. Continue to monitor blood pressure/heart rate. Hyperlipidemia, I will evaluated lipids Carotid stenosis, status post carotid endarterectomy done by Dr. Pineda in July 2014, most recent carotid duplex February 2018 showing moderate disease on the right, mild disease on the left. Continue to monitor. 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 Gastroesophageal reflux disease. Clinical Quality Measures AMI/AHF: ASA po Prior to arrival: Yes (324) DVT/VTE Risk/Contraindication: Risk Factor Score Per Nursin RFS Level Per Nursing on Admit: 4+=Very High Contraindications-Pharm: Other *list below* CAROL MARTINEZ MD Dec 28, 2018 07:34
--- NOTE | 2018-12-28 07:35 | Cardiac Procedure Note-CS/ASA ---
Pre-Procedure Note Pre-Op Procedure Note H&P Reviewed The H&P was reviewed, patient examined and no changes noted. Date H&P Reviewed: Dec 28, 2018 Time H&P Reviewed: 07:34 Conscious Sedation Pre-Proced Time 07:34 ASA Score 3 For ASA 3 and 4: Consider anesthesia and medical clearance. Also, for patients with a history of failed moderate sedation consider anesthesia. Airway Lungs Heart ASA score ASA 1: a normal healthy patient ASA 2: a patient with a mild systemic disease (mid diabetes, controlled hypertension, obesity x ASA 3: a patient with a severe systemic disease that limits activity (angina, COPD, prior Myocardial infarction) ASA 4: a patient with an incapacitating disease that is a constant threat to life (CHF, renal failure) ASA 5: a moribund patient not expected to survive 24 hrs. (ruptured aneurysm) ASA 6: a declared brain- patient whose organs are being harvested. For emergent operations, add the letter E after the classification Mallampati Classification Grade 3 Sedation Plan Analgesia, Amnesia, Plan communicated to team members, Discussed options with patient/fam, Discussed risks with patient/fam The patient is an appropriate candidate to undergo the planned procedure, sedation, and anesthesia. The patient immediately re-assessed prior to indication. CAROL MARTINEZ MD Dec 28, 2018 07:34
[2018-12-28] MEDS: ENOXAPARIN 300 MG/3 ML (LOVENOX) MULTI-DOSE VIAL SQ SCH ×2 (07:37→20:38)
--- NOTE | 2018-12-28 07:39 | NUR ---
LOVENOX NON-ADMINISTERED DUE TO PT BEING TAKEN TO CUTTING TOOL SHARPENER BY CUTTING TOOL SHARPENER STAFF.
[2018-12-28] MEDS ORDERED: fentaNYL INJECTION 100 MCG/2 ML AMP ONE (07:41)
[2018-12-28] MEDS ORDERED: MIDAZOLAM 5 MG/5 ML (VERSED) VIAL ONE (07:41)
--- NOTE | 2018-12-28 07:48 | Progress Note ---
Subjective Time Seen by a Provider: 07:46 Subjective/Events-last exam Patient failed stress test yesterday. Patient this morning not complaining of chest pain or shortness of breath. Patient understands that he is going for angiography this morning Objective Exam Vital Signs Date Time Temp Pulse Resp B/P (MAP) Pulse Ox O2 Delivery O2 Flow Rate FiO2 12/28/18 04:00 36.5 80 18 138/81 (100) 91 Room Air 12/28/18 03:54 Room Air 12/28/18 00:55 73 12/28/18 00:00 Room Air 12/28/18 00:00 36.7 73 16 113/67 (82) 95 Room Air 12/27/18 21:20 Room Air 12/27/18 21:00 Room Air 12/27/18 20:00 36.4 75 18 114/70 (85) 93 Room Air 12/27/18 20:00 Room Air 12/27/18 19:02 83 12/27/18 16:00 93 Nasal Cannula 1.00 12/27/18 16:00 70 18 118/72 (87) 95 Room Air 12/27/18 14:00 36.5 68 18 108/66 (80) 96 Room Air 12/27/18 14:00 93 Nasal Cannula 1.00 12/27/18 12:31 75 12/27/18 12:00 36.5 68 18 108/66 (80) 96 Room Air 12/27/18 12:00 93 Nasal Cannula 1.00 12/27/18 12:00 36.5 69 16 118/62 (80) 96 Room Air 12/27/18 09:05 36.5 71 16 116/58 (77) 96 Room Air 12/27/18 09:05 93 Nasal Cannula 1.00 12/27/18 09:05 93 Room Air 12/27/18 09:05 36.5 71 18 116/58 (77) 92 Room Air 12/27/18 07:49 95 16 116/62 (80) 94 Room Air I & O 12/28/18 07:00 Intake Total 722 ml Output Total 1895 ml Balance -1173 ml Capillary Refill : Less Than 3 Seconds General Appearance: No Apparent Distress, WD/WN HEENT: Normal ENT Inspection Neck: Full Range of Motion, Normal Inspection Respiratory: Lungs Clear, No Accessory Muscle Use, No Respiratory Distress Cardiovascular: Regular Rate, Rhythm Gastrointestinal: non tender, soft Results Lab Microbiology 12/26/18 Urine Culture - Final, Complete 3 or more isolates Assessment/Plan Assessment/Plan Assess & Plan/Chief Complaint Chest pain. Dyspnea. Osteomyelitis history. Diabetes history. Hyperlipidemia. Venous insufficiency leg. . 12/28/18. Chest pain. Hypoxia. Dyspnea. Patient to have angiography coronary this morning area Diabetes. Clinical Quality Measures Admission Status Admission Dx Chest pain. Diabetes. Coronary artery disease. History of cellulitis of leg area Possible history of osteomyelitis For dementia AMI/AHF: ASA po Prior to arrival: Yes (324) DVT/VTE Risk/Contraindication: Risk Factor Score Per Nursin RFS Level Per Nursing on Admit: 4+=Very High Contraindications-Pharm: Other *list below* TAMIKA WHITE DO Dec 28, 2018 07:48
[2018-12-28] MEDS ORDERED: HEParin 1000 UNIT/ML (10ML VIAL) FOR BOLUS ONE (08:08)
[2018-12-28] MEDS ORDERED: NITRO DRIP 25000 MCG/D5W 250 ML IV ONE (08:08)
[2018-12-28] MEDS ORDERED: ASPIRIN 325 MG (5 GR) TABLET ONE (08:38)
[2018-12-28] MEDS ORDERED: CLOPIDOGREL 300 MG (PLAVIX) TABLET PO ONE (08:38)
--- NOTE | 2018-12-28 08:46 | Cardiac Cath Report ---
Cardiac Cath Report Physician (s)/Communications Technologist (s) Physician CAROL MARTINEZ MD Pre-Procedure Diagnosis Pre-Procedure Diagnosis: CAD Post-Procedure Note Procedure Start Date: Dec 28, 2018 Name of Procedure: Left heart catheter Stent to the LAD Findings/Procedure Note PROCEDURE NOTE: 73-year-old gentleman with history of coronary artery disease, has been having chest pain, had an abnormal stress test, scheduled for cardiac catheterization possible PTCA. After explaining the procedure to the patient, all pros and cons were explained, all questions were answered. The patient signed the consent and then he was placed on the cardiac catheterization laboratory. Groin was prepped SL fashion local anesthesia was used. Sheath placed in the right femoral artery. Sanjiv right and left catheter were used to access the coronary system. Pigtail was used to access the left ventricular cavity. Left ventriculogram was not done, pressure was measured Patient was given 5000 units of heparin, FL guide was advanced to the left main, patient has severe stenosis within the distal portion of the stent and extending beyond the stent in the LAD, I advanced a BMW wire, did predilatation with 3.0 balloon, was unable to advance the stent through the proximal LAD due to tortuosity, I advanced a neli wire BMW in the LAD then advance the stent then removed the neli wire, the stent was deployed then multiple inflation up to 19 mimi were done I used Radha 3 x 15 mm stent expanded to 3.25 mm with excellent results. At the end of the procedure the sheath was removed. Closure device was used FINDINGS: Hemodynamics LV 119/8, end-diastolic pressure of 8 Aorta 109/50 mean of 36 ANATOMY: Left Main has mild disease nonobstructive disease Left Anterior Descending is calcified proximally, tortuous, stent in the mid LAD is patent at the distal portion of the stent there is severe stenosis extending beyond the stent, successful balloon angioplasty with Comtrex intervention then deployment of Radha 3 x 15 mm expanded under high-pressure to 3.25 mm overlapping with the old stent with excellent results. Artery disease of the distal LAD Left Circumflex is moderate in size with occluded obtuse marginal branch that is very small artery. Right Coronory Artery it is dominant artery with multiple stents in the mid right coronary artery, slow flow with small vessel disease nonobstructive disease LV Gram was not done, pressure was measured CONCLUSION: 1. Severe in-stent stenosis in the mid LAD extending beyond the old stent, complex intervention then deployment of Radha 3 x 15 mm expanded to 3.25 under 19 mm with excellent results 2. Calcified proximal LAD with some tortuosity and moderate disease at the distal LAD nonobstructive disease 3. Occluded very small obtuse marginal branch nonobstructive disease 4. Patent stents in the midright coronary artery that is a large dominant artery with slow flow due to small vessel disease DISCUSSION AND RECOMMENDATION: patient was loaded with aspirin and Plavix, we will continue with aspirin, Plavix and Eliquis at this time Anesthesia Type: Conscious Sedation Estimated blood loss (mL): 35 ml Contrast Amount: 64 ml Total Radiation Dose: 1582 mGy Post-Procedure Diagnosis Post-operative diagnosis: Chest pain Coronary artery disease Hypertension Hyperlipidemia CAROL MARTINEZ MD Dec 28, 2018 08:46
[2018-12-28] MEDS: ZINC OXIDE 16% OINT (BUTT PASTE) 113 GM TUBE TOP SCH ×2 (09:30→20:50)
[2018-12-28] MEDS ORDERED: PATIENT MAY USE OWN MEDS, ALL PO SCH (09:30)
[2018-12-28] MEDS: ASPIRIN E.C. 81 MG (ECOTRIN) TAB PO SCH (09:30)
[2018-12-28] MEDS: FAMOTIDINE 20 MG (PEPCID) TABLET PO SCH ×2 (09:30→20:39)
--- NOTE | 2018-12-28 14:02 | NUR ---
CM/SS spoke with Elina (patient's daughter) and she will be touring [facility] this day at 3pm, they are also checking for possible insurance assistance also. The family talked with SNF yesterday and family does not feel that he qualifies for Medicaid as he makes too much income. Spoke with [facility] and they were not sure could do admission over the weekend. Spoke with Dr. Bunch and he could be called for his medications, except for blood thinners, leaving for Dr. Aguillon. Patient did have a stent this day and is not ready for discharge this day.
[2018-12-28] MEDS: DONEPEZIL 5 MG (ARICEPT) TAB PO SCH (20:39)
[2018-12-29] VITALS (7 sets, daily range): BP systolic 90–138; BP diastolic 50–81
[2018-12-29 03:09] LABS: HEMOGLOBIN 10.9 G/DL (13.3-17.7); MEAN PLATELET VOLUME 10.3 FL (7.4-10.4); RED CELL DISTRIBUTION WIDTH 16.6 % (10.0-14.5); WHITE BLOOD COUNT 7.2 10^3/uL (4.3-11.0)
[2018-12-29 03:26] LABS: CALCIUM 8.9 MG/DL (8.5-10.1); CREATININE SERUM 1.29 MG/DL (0.60-1.30); POTASSIUM 4.4 MMOL/L (3.6-5.0)
[2018-12-29] MEDS: NS IV 1000 ML 1,000 ML IV SCH ×2 (05:11→06:39)
[2018-12-29] MEDS: inSUlin ASPART (NovoLOG) 1 UNIT/0.01 ML (CHARGE PER UNIT) SC SCH ×4 (05:11→21:38)
[2018-12-29] MEDS: CATHETER FLUSH 10 ML SYR IV SCH ×3 (05:11→22:00)
[2018-12-29] MEDS: ENOXAPARIN 300 MG/3 ML (LOVENOX) MULTI-DOSE VIAL SQ SCH ×2 (06:10→19:31)
[2018-12-29] MEDS: MULTIVIT W/MINERALS TAB (THERAGRAN M) PO SCH (06:10)
[2018-12-29] MEDS: BUMETANIDE 1 MG (BUMEX) TAB PO SCH (08:14)
[2018-12-29] MEDS: ASPIRIN E.C. 81 MG (ECOTRIN) TAB PO SCH (08:15)
[2018-12-29] MEDS: FAMOTIDINE 20 MG (PEPCID) TABLET PO SCH ×2 (08:15→21:37)
[2018-12-29] MEDS: SERTRALINE 50 MG (ZOLOFT) TABLET PO SCH (08:15)
[2018-12-29] MEDS: MEMANTINE 5 MG (NAMENDA) TABLET PO SCH (08:15)
[2018-12-29] MEDS: LORATADINE (CLARITIN) 10 MG TAB PO SCH (08:15)
[2018-12-29] MEDS: CLOPIDOGREL 75 MG (PLAVIX) TABLET PO SCH (08:15)
[2018-12-29] MEDS: ZINC OXIDE 16% OINT (BUTT PASTE) 113 GM TUBE TOP SCH ×2 (08:16→21:00)
[2018-12-29] MEDS ORDERED: ASPIRIN E.C. 81 MG (ECOTRIN) TAB PO SCH (09:00)
--- NOTE | 2018-12-29 09:08 | Cardiology Progress Note ---
Subjective Date Seen by Provider: Dec 29, 2018 Time Seen by Provider: 09:06 Subjective/Events-last exam Patient is laying down in bed. Feeling well. Denied any chest pain, groin is healing well. Review of Systems General: No Chills, No Night Sweats, No Fatigue, No Malaise, No Appetite, No Other HEENT: No Head Aches, No Visual Changes, No Eye Pain, No Ear Pain, No Dysphasia, No Sinus Congestion, No Post Nasal Drip, No Sore Throat, No Other Pulmonary: No Dyspnea, No Cough, No Pleuritic Chest Pain, No Other Cardiovascular: No: Chest Pain, Palpitations, Orthopnea, Paroxysmal Noc. Dyspnea, Edema, Lt Headedness, Other Objective-Cardiology Exam Last Set of Vital Signs Vital Signs Capillary Refill : Less Than 3 Seconds I&O Intake and Output 12/29/18 00:00 Intake Total 1490 ml Output Total 1680 ml Balance -190 ml Intake Oral 890 ml IV Total 600 ml Output Urine Total 1680 ml # Voids 1 General: Alert, Oriented X3, Cooperative HEENT: Atraumatic, PERRLA Neck: Supple, No JVD, No Thyromegaly Lungs: Clear to Auscultation, Normal Air Movement Heart: Regular Rate, Normal S1, Normal S2, Other (Start murmur at the left sternal border) Abdomen: Normal Bowel Sounds, Soft, No Tenderness, No Hepatosplenomegaly, No Masses Extremities: No Clubbing, No Cyanosis, No Edema, Normal Pulses, No Tenderness/Swelling Skin: No Rashes, No Breakdown, No Significant Lesion Neuro: Normal Gait, Normal Speech, Strength at 5/5 X4 Ext, Normal Tone, Sensation Intact Psych/Mental Status: Mental Status NL, Mood NL Results Lab Laboratory Tests 12/29/18 02:41 A/P-Cardiology Admission Diagnosis Chest pain Dyspnea CAD HTN Assessment/Plan Chest pain, nonspecific etiology, stress post cardiac catheterization and stent to the LAD Coronary artery disease, history of a stent done in June 2006 using ultra 4.518 mm bare-metal stent to the LAD, another stent done in December 2009 using Promus 3.012 mm distal right coronary artery. Coronary angiogram done in July 2016 showed patent stent in the coronary system with rqfz-lp-tmahcfgl disease, occlusion of a small branch of the circumflex artery which is very small artery getting filled by collaterals, underwent cardiac catheterization on December 28, 2018 with severe in-stent restenosis in the LAD underwent stent deployment using Radha 3 x 15 expanded to 3.2 mm overlapping with old stent. Had moderate to severe disease at the distal LAD which is very small artery. EKG showed no change, currently chest pain-free. BLE wounds, recent cellulitis-patient had CTA of abdominal aorta with runoff suggestive of stenosis at the right anterior tibial artery. Peripheral angiogram showed nilk-xm-trchyrih disease, slow flow due to small vessel disease. It appears that he has venous stasis ulceration bilaterally. Last angiogram was done in July 2016. NICK's done Dec 2017. Following with wound care in [place]. Reports treated for cellulitis and questionable osteomyelitis recently. Syncope/near syncopal episode, severe weakness due to severe bradycardia, improved after discontinuing atenolol and amiodarone. Continue to monitor. Sick sinus syndrome/sinus pause with escape junctional rhythm with heart rate in the 30s, underlying sinus node dysfunction is present probably exacerbated by atenolol and amiodarone which was stopped. Heart rate improved. Questionable paroxysmal atrial flutter, Holter monitor was done in November 2016 and showed sinus rhythm with 6 beats nonsustained ventricular tachycardia with occasional atrial and ventricular premature contractions. Has been asymptomatic. Continue to monitor [id number] score of 4, yearly risk of stroke without oral anticoagulation is 4.2 percent. Maintained on Eliquis 5mg BID Hypertension-controlled. Continue to monitor blood pressure/heart rate. Hyperlipidemia, I will evaluated lipids Carotid stenosis, status post carotid endarterectomy done by Dr. Pineda in July 2014, most recent carotid duplex February 2018 showing moderate disease on the right, mild disease on the left. Continue to monitor. 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 Gastroesophageal reflux disease. Clinical Quality Measures AMI/AHF: ASA po Prior to arrival: Yes (324) DVT/VTE Risk/Contraindication: Risk Factor Score Per Nursin RFS Level Per Nursing on Admit: 4+=Very High Contraindications-Pharm: Other *list below* CAROL MARTINEZ MD Dec 29, 2018 09:08
--- NOTE | 2018-12-29 10:59 | Physical Therapy Evaluation ---
PT Evaluation-General Medical Diagnosis Admission Date Dec 26, 2018 at 04:10 Medical Diagnosis: CP/hypoxia Onset Date: Dec 26, 2018 Therapy Diagnosis Therapy Diagnosis: debility/weakness Height/Weight Height (Feet): 5 Height (Inches): 8.00 Weight (Pounds): 348 Weight (Ounces): 3.0 Precautions Precautions/Isolations: Fall Prevention, Standard Precautions, Pressure Ulcer Weight Bear Status Right Lower Extremity: Right Weight Bearing/Tolerated Left Lower Extremity: Left Weight Bearing/Tolerated Referral Physician: Bhavesh Reason for Referral: Evaluation/Treatment Medical History Pertinent Medical History: Arthritis, CAD, DM, GERD, [place], Neuropathy, PVD, Renal Insufficiency Additional Medical History morbid obesity Current History EMS secondary to CP/has been in NH x 100 days and returned to home 12/22/18 Reviewed History: Yes Social History Home: Single Level Entry Into Home: Ramp Prior Prior Level of Function SCALE: Activities may be completed with or without assistive devices. 3-Eewucsjhzd-hixdmql completes the activity by him/herself with no assistance from a helper. 5-Set-up or Clean-up Assistance-helper sets up or cleans up; patient completes activity. Kent assists only prior to or following the activity. 4-Supervision or Touching Assistance-helper provides verbal cues and/or touching/steadying and/or contact guard assistance as patient completes activity. Assistance may be provided throughout the activity or intermittently. 3-Partial/Moderate Assistance-helper does LESS THAN HALF the effort. Kent lifts, holds or supports trunk or limbs, but provides less than half the effort. 2-Substantial/Maximal Assistance-helper does MORE THAN HALF the effort. [place] lifts or holds trunk or limbs and provides more than half the effort. 7-Vmgfumsif-ohpejc does ALL the effort. Patient does none of the effort to complete the activity. Or, the assistance of 2 or more helpers is required for the patient to complete the activity. If activity was not attempted, code reason: 7-Patient Refused. 9-Not Applicable-not attempted and the patient did not perform the activity before the current illness, exacerbation or injury. 10-Not Attempted due to Environmental Limitations-(lack of equipment, weather restraints, etc.). 88-Not Attempted due to Medical Conditions or Safety Concerns. Bed Mobility: 5 Transfers (B,C,W/C): 5 Gait: 5 Indoor Mobility (Ambulation): Independent Stairs: Not Applicalbe Prior Devices Use: Manual wheelchair, Walker ambulates short distances only PT Evaluation-Current Subjective Patient agrees to PT. Pain Numeric Pain Scale: 0-No Pain Location: No Pain Reported Objective Patient Orientation: Person, Time, Situation Problem Solving: Fair Attachments: IV ROM/Strength ROM Lower Extremities bilateral LE WFL Strength Lower Extremities 4/5 grossly bilateral LE Integumentary/Posture Integumentary refer to nursing notes Bowel Incontinence: Yes Bladder Incontinence: Yes Posture WFL Neuromuscular (Tone, Coordination, Reflexes) grossly intact Sensory Vision: Wears Glasses Hearing: Functional Sensation Right Lower Extremit: Impaired Sensation Left Lower Extremity: Impaired Transfers Roll Left to Right (QC): 6 Sit to Lying (QC): 6 Lying to Sitting/Side of Bed(Q: 6 Sit to Stand (QC): 6 Chair/Wow-fn-Ursis Xfer(QC): 6 Gait Does the Patient Walk?: Yes Mode of Locomotion: Walk Anticipated Mode of Locomotion: Walk Distance (FIM): 4=967-78 ft Walk 10 feet (QC): 6 Walk 50 ft with 2 Turns(QC): 6 Distance: 75' Gait Assistive Device: FWW Comments/Gait Description WBOS/safe and functional gait sequence Assessment/Needs 73 y.o. male, will be seen short term by skilled PT to address functional mobility to improve current LOF. Patient is limited by morbid obesity and jenae bility to care for self. Rehab Potential: Fair Post Rehab Potential-Barriers: compliance PT Overhead Cleaner Goals Overhead Cleaner Goals PT Overhead Cleaner Goals Time Frame: Jan 05, 2019 Sit to Lying (QC): 6 Lying-Sitting on Side/Bed(QC): 6 Sit to Stand (QC): 6 Roll Left to Right (QC): 6 Chair/Oev-hi-Oaukr Xfer(QC): 6 Does the Patient Walk: Yes Distance: 150' Walk 10 feet (QC): 6 Walk 10ft-Uneven Surface(QC): 6 Walk 50ft with 2 Turns (QC): 6 Walk 150 ft (QC): 6 Gait Assistive Device: FWW PT Plan Problem List Problem List: Activity Tolerance, Functional Strength, Gait, Transfer, Bed Mobility Treatment/Plan Treatment Plan: Continue Plan of Care Treatment Plan: Bed Mobility, Education, Functional Activity Honorio, Functional Strength, Gait, Safety, Therapeutic Exercise, Transfers Treatment Duration: Jan 05, 2019 Frequency: 6 times per week Estimated Hrs Per Day: .25 hour per day Patient and/or Family Agrees t: Yes Time/GCodes Time In: 955 Time Out: 1005 Total Billed Treatment Time: 10 Total Billed Treatment 1 visit EVLowC 10 min SALEEM YEN PT Dec 29, 2018 10:59
--- NOTE | 2018-12-29 12:26 | Progress Note - Hospitalist ---
Subjective HPI/CC On Admission Date Seen by Provider: Dec 29, 2018 Time Seen by Provider: 08:15 Subjective/Events-last exam Pt is sleepy and watching TV. Denies any complaints. Discussed with RN and he remains confused. Had stent placed yesterday. Objective Exam Vital Signs Vital Signs Date Time Temp Pulse Resp B/P (MAP) Pulse Ox O2 Delivery O2 Flow Rate FiO2 12/29/18 12:00 36.2 73 17 133/81 (98) 96 Room Air 12/28/18 16:00 4.00 Capillary Refill : Less Than 3 Seconds General Appearance: No Apparent Distress, Chronically ill Respiratory: Lungs Clear, No Respiratory Distress Cardiovascular: Regular Rate, Rhythm, No Murmur Gastrointestinal: Normal Bowel Sounds, Soft Neurologic/Psychiatric: Alert, Other (sleepy but arouses easily, pleasnatly confused) Results/Procedures Lab Laboratory Tests 12/29/18 02:41 Patient resulted labs reviewed. Assessment/Plan Assessment and Plan Assess & Plan/Chief Complaint CAD Stent placed yesterday per Dr Kamara Continue Plavix and ASA Lipitor Sick sinus syndrome Cardiology consulted, appreciate recs Had a flutter noted on holter Continue Lovenox therapeutic dosing Dementia Accepted at [facility] when stable for DC, likely Monday PT/OT Aricept and Namenda IDDMII SSI Levemir 40 units QHS Clinical Quality Measures AMI/AHF: ASA po Prior to arrival: Yes (324) DVT/VTE Risk/Contraindication: Risk Factor Score Per Nursin RFS Level Per Nursing on Admit: 4+=Very High Contraindications-Pharm: Other *list below* GEOVANNY JUSTICE MD Dec 29, 2018 12:26
--- NOTE | 2018-12-29 13:43 | NUR ---
Spoke with Dr. Ospina regarding the consult for geriatric psych. She requests that we put this on hold at this time until Monday when Dr. Bunch can reevaluate the patient.
[2018-12-29] MEDS ORDERED: ENOXAPARIN 100 MG/1 ML (LOVENOX) SYR ONE (19:11)
[2018-12-29] MEDS ORDERED: ENOXAPARIN 40 MG/0.4 ML (LOVENOX) SYR ONE (19:11)
[2018-12-29] MEDS: DONEPEZIL 5 MG (ARICEPT) TAB PO SCH (21:37)
[2018-12-30] VITALS: BP 119/69
[2018-12-30] MEDS: NS IV 1000 ML 1,000 ML IV SCH ×3 (01:20→20:46)
[2018-12-30] MEDS: CATHETER FLUSH 10 ML SYR IV SCH ×3 (06:00→20:46)
[2018-12-30] MEDS: inSUlin ASPART (NovoLOG) 1 UNIT/0.01 ML (CHARGE PER UNIT) SC SCH ×4 (06:00→20:38)
[2018-12-30] MEDS: MULTIVIT W/MINERALS TAB (THERAGRAN M) PO SCH (06:42)
[2018-12-30 08:00] VITALS: BP 108/53
[2018-12-30] MEDS: CLOPIDOGREL 75 MG (PLAVIX) TABLET PO SCH (08:29)
[2018-12-30] MEDS: BUMETANIDE 1 MG (BUMEX) TAB PO SCH (08:29)
[2018-12-30] MEDS: MEMANTINE 5 MG (NAMENDA) TABLET PO SCH (08:30)
[2018-12-30] MEDS: FAMOTIDINE 20 MG (PEPCID) TABLET PO SCH ×2 (08:30→20:39)
[2018-12-30] MEDS: LORATADINE (CLARITIN) 10 MG TAB PO SCH (08:30)
[2018-12-30] MEDS: SERTRALINE 50 MG (ZOLOFT) TABLET PO SCH (08:30)
[2018-12-30] MEDS: ASPIRIN E.C. 81 MG (ECOTRIN) TAB PO SCH (08:30)
[2018-12-30] MEDS: ENOXAPARIN 300 MG/3 ML (LOVENOX) MULTI-DOSE VIAL SQ SCH (08:31)
[2018-12-30] MEDS: ZINC OXIDE 16% OINT (BUTT PASTE) 113 GM TUBE TOP SCH ×2 (08:36→20:46)
--- NOTE | 2018-12-30 10:03 | Progress Note - Hospitalist ---
Subjective HPI/CC On Admission Date Seen by Provider: Dec 30, 2018 Time Seen by Provider: 10:01 Subjective/Events-last exam Pt sleepy but arouses. Has no complaints. Feeling well. Ask to go back to sleep. Objective Exam Vital Signs Vital Signs Date Time Temp Pulse Resp B/P (MAP) Pulse Ox O2 Delivery O2 Flow Rate FiO2 12/30/18 08:00 37.0 75 20 108/53 (71) 91 Room Air 12/28/18 16:00 4.00 Capillary Refill : Less Than 3 Seconds General Appearance: No Apparent Distress, Chronically ill, Obese Cardiovascular: Regular Rate, Rhythm, No Murmur Gastrointestinal: Normal Bowel Sounds, Soft Neurologic/Psychiatric: Alert, Oriented x3 Results/Procedures Lab Patient resulted labs reviewed. Assessment/Plan Assessment and Plan Assess & Plan/Chief Complaint CAD Stent placed yesterday per Dr Kamara Continue Plavix and ASA Lipitor Sick sinus syndrome Cardiology consulted, appreciate recs Had a flutter noted on holter Continue Lovenox therapeutic dosing- will need to transition to OAC upon DC Dementia Accepted at [facility] when stable for DC, likely Monday PT/OT Aricept and Namenda IDDMII SSI Levemir 40 units QHS Clinical Quality Measures AMI/AHF: ASA po Prior to arrival: Yes (324) DVT/VTE Risk/Contraindication: Risk Factor Score Per Nursin RFS Level Per Nursing on Admit: 4+=Very High Contraindications-Pharm: Other *list below* GEOVANNY JUSTICE MD Dec 30, 2018 10:02
--- NOTE | 2018-12-30 10:36 | Cardiology Progress Note ---
Subjective Date Seen by Provider: Dec 30, 2018 Time Seen by Provider: 10:36 Subjective/Events-last exam Patient is laying down in bed, no no chest pain Review of Systems General: No Chills, No Night Sweats, No Fatigue, No Malaise, No Appetite, No Other HEENT: No Head Aches, No Visual Changes, No Eye Pain, No Ear Pain, No Dysphasia, No Sinus Congestion, No Post Nasal Drip, No Sore Throat, No Other Pulmonary: No Dyspnea, No Cough, No Pleuritic Chest Pain, No Other Cardiovascular: No: Chest Pain, Palpitations, Orthopnea, Paroxysmal Noc. Dyspnea, Edema, Lt Headedness, Other Objective-Cardiology Exam Last Set of Vital Signs Vital Signs 12/30/18 08:00 Temp 37.0 Pulse 75 Resp 20 B/P (MAP) 108/53 (71) Pulse Ox 91 O2 Delivery Room Air Capillary Refill : Less Than 3 Seconds I&O Intake and Output 12/30/18 00:00 Intake Total 2936 ml Output Total 1700 ml Balance 1236 ml Intake Oral 1936 ml IV Total 1000 ml Output Urine Total 1700 ml # Bowel Movements 2 General: Alert, Oriented X3, Cooperative HEENT: Atraumatic, PERRLA Neck: Supple, No JVD, No Thyromegaly Lungs: Clear to Auscultation, Normal Air Movement Heart: Regular Rate, Normal S1, Normal S2, Other (Start murmur at the left sternal border) Abdomen: Normal Bowel Sounds, Soft, No Tenderness, No Hepatosplenomegaly, No Masses Extremities: No Clubbing, No Cyanosis, No Edema, Normal Pulses, No Tenderness/Swelling Skin: No Rashes, No Breakdown, No Significant Lesion Neuro: Normal Gait, Normal Speech, Strength at 5/5 X4 Ext, Normal Tone, Sensat ion Intact Psych/Mental Status: Mental Status NL, Mood NL Results Lab Laboratory Tests Test 12/29/18 16:07 12/29/18 20:40 12/30/18 06:25 Range/Units Glucometer 222 H 174 H 136 H 70-110 MG/DL A/P-Cardiology Admission Diagnosis Chest pain Dyspnea CAD HTN Assessment/Plan Chest pain, nonspecific etiology, stress post cardiac catheterization and stent to the LAD Coronary artery disease, history of a stent done in June 2006 using ultra 4.518 mm bare-metal stent to the LAD, another stent done in December 2009 using Promus 3.012 mm distal right coronary artery. Coronary angiogram done in July 2016 showed patent stent in the coronary system with ocbt-hd-xkopevtp disease, occlusion of a small branch of the circumflex artery which is very small artery getting filled by collaterals, underwent cardiac catheterization on December 28, 2018 with severe in-stent restenosis in the LAD underwent stent deployment using Radha 3 x 15 expanded to 3.2 mm overlapping with old stent. Had moderate to severe disease at the distal LAD which is very small artery. EKG showed no change, currently chest pain-free. BLE wounds, recent cellulitis-patient had CTA of abdominal aorta with runoff suggestive of stenosis at the right anterior tibial artery. Peripheral angiogram showed aynz-on-ofgtzaqs disease, slow flow due to small vessel disease. It appears that he has venous stasis ulceration bilaterally. Last angiogram was done in July 2016. NICK's done Dec 2017. Following with wound care in [place]. Reports treated for cellulitis and questionable osteomyelitis recently. Syncope/near syncopal episode, severe weakness due to severe bradycardia, improved after discontinuing atenolol and amiodarone. Continue to monitor. Sick sinus syndrome/sinus pause with escape junctional rhythm with heart rate in the 30s, underlying sinus node dysfunction is present probably exacerbated by atenolol and amiodarone which was stopped. Heart rate improved. Questionable paroxysmal atrial flutter, Holter monitor was done in November 2016 and showed sinus rhythm with 6 beats nonsustained ventricular tachycardia with occasional atrial and ventricular premature contractions. Has been asymptomatic. Continue to monitor [id number] score of 4, yearly risk of stroke without oral anticoagulation is 4.2 percent. Maintained on Eliquis 5mg BID Hypertension-controlled. Continue to monitor blood pressure/heart rate. Hyperlipidemia, I will evaluated lipids Carotid stenosis, status post carotid endarterectomy done by Dr. Pineda in July 2014, most recent carotid duplex February 2018 showing moderate disease on the right, mild disease on the left. Continue to monitor. 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 Gastroesophageal reflux disease. Clinical Quality Measures AMI/AHF: ASA po Prior to arrival: Yes (324) DVT/VTE Risk/Contraindication: Risk Factor Score Per Nursin RFS Level Per Nursing on Admit: 4+=Very High Contraindications-Pharm: Other *list below* CAROL MARTINEZ MD Dec 30, 2018 10:36
[2018-12-30] MEDS ORDERED: ENOXAPARIN 40 MG/0.4 ML (LOVENOX) SYR SQ SCH (10:45)
[2018-12-30 12:00] VITALS: BP 117/56
[2018-12-30 16:06] VITALS: BP 125/59
[2018-12-30 19:18] VITALS: BP 129/60
[2018-12-30] MEDS: ENOXAPARIN 40 MG/0.4 ML (LOVENOX) SYR SQ SCH (20:41)
[2018-12-30] MEDS: DONEPEZIL 5 MG (ARICEPT) TAB PO SCH (20:43)
[2018-12-31] VITALS: BP 111/70
[2018-12-31] MEDS: NS IV 1000 ML 1,000 ML IV SCH ×2 (06:11→17:46)
[2018-12-31] MEDS: CATHETER FLUSH 10 ML SYR IV SCH ×2 (06:12→14:14)
[2018-12-31] MEDS: inSUlin ASPART (NovoLOG) 1 UNIT/0.01 ML (CHARGE PER UNIT) SC SCH ×3 (06:12→16:56)
[2018-12-31] MEDS: MULTIVIT W/MINERALS TAB (THERAGRAN M) PO SCH (06:13)
--- NOTE | 2018-12-31 07:47 | Progress Note ---
Subjective Time Seen by a Provider: 07:45 Subjective/Events-last exam Patient resting comfortably in bed today. Patient having no complaints. Patient told he is going toe callus states today. Patient realizes he needs help and willing to go Objective Exam Vital Signs Date Time Temp Pulse Resp B/P (MAP) Pulse Ox O2 Delivery O2 Flow Rate FiO2 12/31/18 00:00 36.7 74 18 111/70 (84) 95 Room Air 12/30/18 20:45 Room Air 12/30/18 19:18 36.4 73 18 129/60 (83) 94 Room Air 12/30/18 16:06 36.4 73 18 125/59 (81) 94 Room Air 12/30/18 12:00 36.9 76 18 117/56 (76) 89 Room Air 12/30/18 08:00 Room Air 12/30/18 08:00 37.0 75 20 108/53 (71) 91 Room Air I & O 12/31/18 07:00 Intake Total 2584 ml Output Total 2895 ml Balance -311 ml Capillary Refill : Less Than 3 SecondsLess Than 3 Seconds General Appearance: No Apparent Distress, WD/WN HEENT: Normal ENT Inspection Neck: Full Range of Motion, Normal Inspection Respiratory: Lungs Clear, No Accessory Muscle Use, No Respiratory Distress Cardiovascular: Regular Rate, Rhythm, No Murmur Gastrointestinal: non tender, soft Results Lab Laboratory Tests 12/30/18 11:25: Glucometer 206H 12/30/18 16:12: Glucometer 159H 12/30/18 20:35: Glucometer 152H 12/31/18 05:44: Glucometer 152H Microbiology 12/26/18 Urine Culture - Final, Complete 3 or more isolates Assessment/Plan Assessment/Plan Assess & Plan/Chief Complaint Chest pain. Dyspnea. Osteomyelitis history. Diabetes history. Hyperlipidemia. Venous insufficiency leg. . 12/28/18. Chest pain. Hypoxia. Dyspnea. Patient to have angiography coronary this morning area Diabetes.. . 12/31/18. Chest pain. Hypoxia. Dyspnea. Coronary stent placement. Diabetes. Patient to be transferred today vocalis states Clinical Quality Measures Admission Status Admission Dx Chest pain. Diabetes. Coronary artery disease. History of cellulitis of leg area Possible history of osteomyelitis For dementia AMI/AHF: ASA po Prior to arrival: Yes (324) DVT/VTE Risk/Contraindication: Risk Factor Score Per Nursin RFS Level Per Nursing on Admit: 4+=Very High Contraindications-Pharm: Other *list below* TAMIKA WHITE DO Dec 31, 2018 07:47
[2018-12-31 08:08] VITALS: BP 127/60
--- NOTE | 2018-12-31 08:28 | Cardiology Progress Note ---
Subjective Date Seen by Provider: Dec 31, 2018 Time Seen by Provider: 08:27 Subjective/Events-last exam Patient in bed, no new complaints. Denies any chest pain or dyspnea. Objective-Cardiology Exam Last Set of Vital Signs Vital Signs 12/31/18 08:08 Temp 36.7 Pulse 73 Resp 16 B/P (MAP) 127/60 (82) Pulse Ox 91 O2 Delivery Room Air Capillary Refill : Less Than 3 SecondsLess Than 3 Seconds I&O Intake and Output 12/31/18 00:00 Intake Total 3034 ml Output Total 3375 ml Balance -341 ml Intake Oral 3034 ml Output Urine Total 3375 ml # Voids 1 # Bowel Movements 4 General: Alert, Oriented X3, Cooperative HEENT: Atraumatic, PERRLA Neck: Supple, No JVD, No Thyromegaly Lungs: Clear to Auscultation, Normal Air Movement Heart: Regular Rate, Normal S1, Normal S2, Other (Start murmur at the left st ernal border) Abdomen: Normal Bowel Sounds, Soft, No Tenderness, No Hepatosplenomegaly, No Masses Extremities: No Clubbing, No Cyanosis, No Edema, Normal Pulses, No Tenderness/Swelling Skin: No Rashes, No Breakdown, No Significant Lesion Neuro: Normal Gait, Normal Speech, Strength at 5/5 X4 Ext, Normal Tone, Sensation Intact Psych/Mental Status: Mental Status NL, Mood NL A/P-Cardiology Admission Diagnosis Chest pain Dyspnea CAD HTN Assessment/Plan Chest pain, nonspecific etiology, post cardiac catheterization and stent to the LAD Coronary artery disease, history of a stent done in June 2006 using ultra 4.518 mm bare-metal stent to the LAD, another stent done in December 2009 using Promus 3.012 mm distal right coronary artery. Coronary angiogram done in July 2016 showed patent stent in the coronary system with yzpr-ta-asmfstly disease, occlusion of a small branch of the circumflex artery which is very small artery getting filled by collaterals, underwent cardiac catheterization on December 28, 2018 with severe in-stent restenosis in the LAD underwent stent deployment using Radha 3 x 15 expanded to 3.2 mm overlapping with old stent. Had moderate to severe disease at the distal LAD which is very small artery. EKG showed no change, currently chest pain-free. BLE wounds, recent cellulitis-patient had CTA of abdominal aorta with runoff suggestive of stenosis at the right anterior tibial artery. Peripheral angiogram showed dvvg-zz-qazcxrmr disease, slow flow due to small vessel disease. It appears that he has venous stasis ulceration bilaterally. Last angiogram was done in July 2016. NIKC's done Dec 2017. Following with wound care in [place]. Reports treated for cellulitis and questionable osteomyelitis recently. Syncope/near syncopal episode, severe weakness due to severe bradycardia, improved after discontinuing atenolol and amiodarone. Continue to monitor. Sick sinus syndrome/sinus pause with escape junctional rhythm with heart rate in the 30s, underlying sinus node dysfunction is present probably exacerbated by atenolol and amiodarone which was stopped. Heart rate improved. Questionable paroxysmal atrial flutter, Holter monitor was done in November 2016 and showed sinus rhythm with 6 beats nonsustained ventricular tachycardia with occasional atrial and ventricular premature contractions. Has been asymptomatic. Continue to monitor [id number] score of 4, yearly risk of stroke without oral anticoagulation is 4.2 percent. Hypertension-controlled. Continue to monitor blood pressure/heart rate. Hyperlipidemia,continue to monitor. Carotid stenosis, status post carotid endarterectomy done by Dr. Pineda in July 2014, most recent carotid duplex February 2018 showing moderate disease on the right, mild disease on the left. Continue to monitor. 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 Gastroesophageal reflux disease. Clinical Quality Measures AMI/AHF: ASA po Prior to arrival: Yes (324) DVT/VTE Risk/Contraindication: Risk Factor Score Per Nursin RFS Level Per Nursing on Admit: 4+=Very High Contraindications-Pharm: Other *list below* ANGELA SOLIS Dec 31, 2018 08:28
[2018-12-31] MEDS ORDERED: CLOP75TA28 PO (08:41)
[2018-12-31] MEDS ORDERED: DONE5TAB8 PO (08:41)
[2018-12-31] MEDS ORDERED: MEMA5TAB PO (08:41)
[2018-12-31] MEDS: FAMOTIDINE 20 MG (PEPCID) TABLET PO SCH (09:19)
[2018-12-31] MEDS: ASPIRIN E.C. 81 MG (ECOTRIN) TAB PO SCH (09:19)
[2018-12-31] MEDS: SERTRALINE 50 MG (ZOLOFT) TABLET PO SCH (09:19)
[2018-12-31] MEDS: MEMANTINE 5 MG (NAMENDA) TABLET PO SCH (09:19)
[2018-12-31] MEDS: CLOPIDOGREL 75 MG (PLAVIX) TABLET PO SCH (09:19)
[2018-12-31] MEDS: LORATADINE (CLARITIN) 10 MG TAB PO SCH (09:19)
[2018-12-31] MEDS: BUMETANIDE 1 MG (BUMEX) TAB PO SCH (09:19)
[2018-12-31] MEDS: ENOXAPARIN 40 MG/0.4 ML (LOVENOX) SYR SQ SCH (09:19)
[2018-12-31] MEDS: ZINC OXIDE 16% OINT (BUTT PASTE) 113 GM TUBE TOP SCH (09:21)
--- NOTE | 2018-12-31 09:54 | Cardiology Progress Note ---
Subjective Date Seen by Provider: Dec 31, 2018 Time Seen by Provider: 09:52 Subjective/Events-last exam patient is laying down in bed, no new complaint. No chest pain. Review of Systems General: No Chills, No Night Sweats, No Fatigue, No Malaise, No Appetite, No Other HEENT: No Head Aches, No Visual Changes, No Eye Pain, No Ear Pain, No Dysphasia, No Sinus Congestion, No Post Nasal Drip, No Sore Throat, No Other Pulmonary: No Dyspnea, No Cough, No Pleuritic Chest Pain, No Other Cardiovascular: No: Chest Pain, Palpitations, Orthopnea, Paroxysmal Noc. Dyspnea, Edema, Lt Headedness, Other Objective-Cardiology Exam Last Set of Vital Signs Vital Signs 12/31/18 08:08 Temp 36.7 Pulse 73 Resp 16 B/P (MAP) 127/60 (82) Pulse Ox 91 O2 Delivery Room Air Capillary Refill : Less Than 3 SecondsLess Than 3 Seconds I&O Intake and Output 12/31/18 00:00 Intake Total 3034 ml Output Total 3375 ml Balance -341 ml Intake Oral 3034 ml Output Urine Total 3375 ml # Voids 1 # Bowel Movements 4 General: Alert, Oriented X3, Cooperative HEENT: Atraumatic, PERRLA Neck: Supple, No JVD, No Thyromegaly Lungs: Clear to Auscultation, Normal Air Movement Heart: Regular Rate, Normal S1, Normal S2, Other (Start murmur at the left sternal border) Abdomen: Normal Bowel Sounds, Soft, No Tenderness, No Hepatosplenomegaly, No Masses Extremities: No Clubbing, No Cyanosis, No Edema, Normal Pulses, No Tenderness/Swelling Skin: No Rashes, No Breakdown, No Significant Lesion Neuro: Normal Gait, Normal Speech, Strength at 5/5 X4 Ext, Normal Tone, Sensation Intact Psych/Mental Status: Mental Status NL, Mood NL Results Lab Laboratory Tests Test 12/30/18 11:25 12/30/18 16:12 12/30/18 20:35 12/31/18 05:44 Range/Units Glucometer 206 H 159 H 152 H 152 H 70-110 MG/DL A/P-Cardiology Admission Diagnosis Chest pain Dyspnea CAD HTN Assessment/Plan Chest pain, nonspecific etiology, post cardiac catheterization and stent to the LAD Coronary artery disease, history of a stent done in June 2006 using ultra 4.518 mm bare-metal stent to the LAD, another stent done in December 2009 using Promus 3.012 mm distal right coronary artery. Coronary angiogram done in July 2016 showed patent stent in the coronary system with fvoe-rl-nqkoumrb disease, occlusion of a small branch of the circumflex artery which is very small artery getting filled by collaterals, underwent cardiac catheterization on December 28, 2018 with severe in-stent restenosis in the LAD underwent stent deployment using Radha 3 x 15 expanded to 3.2 mm overlapping with old stent. Had moderate to severe disease at the distal LAD which is very small artery. EKG showed no change, currently chest pain-free. BLE wounds, recent cellulitis-patient had CTA of abdominal aorta with runoff suggestive of stenosis at the right anterior tibial artery. Peripheral angiogram showed emsr-hf-diqsmxss disease, slow flow due to small vessel disease. It appears that he has venous stasis ulceration bilaterally. Last angiogram was done in July 2016. NICK's done Dec 2017. Following with wound care in [place]. Reports treated for cellulitis and questionable osteomyelitis recently. Syncope/near syncopal episode, severe weakness due to severe bradycardia, improved after discontinuing atenolol and amiodarone. Continue to monitor. Sick sinus syndrome/sinus pause with escape junctional rhythm with heart rate in the 30s, underlying sinus node dysfunction is present probably exacerbated by atenolol and amiodarone which was stopped. Heart rate improved. Questionable paroxysmal atrial flutter, Holter monitor was done in November 2016 and showed sinus rhythm with 6 beats nonsustained ventricular tachycardia with occasional atrial and ventricular premature contractions. Has been asymptomatic. Continue to monitor [id number] score of 4, yearly risk of stroke without oral anticoagulation is 4.2 percent. has been off oral anticoagulation. Continue to monitor. Hypertension-controlled. Continue to monitor blood pressure/heart rate. Hyperlipidemia,continue to monitor. Carotid stenosis, status post carotid endarterectomy done by Dr. Pineda in July 2014, most recent carotid duplex February 2018 showing moderate disease on the right, mild disease on the left. Continue to monitor. 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 Gastroesophageal reflux disease. Clinical Quality Measures AMI/AHF: ASA po Prior to arrival: Yes (324) DVT/VTE Risk/Contraindication: Risk Factor Score Per Nursin RFS Level Per Nursing on Admit: 4+=Very High Contraindications-Pharm: Other *list below* CAROL MARTINEZ MD Dec 31, 2018 09:54
--- NOTE | 2018-12-31 09:54 | NUR ---
CM/SS spoke with the patient's daughter and they are not going to be going to [facility], they are too expensive. Family is speaking with [employer] and feels they will work with them. Elina stated that he may just return home with family until the . Family will fiber picker this day after 5pm.
--- NOTE | 2018-12-31 11:09 | Physical Therapy Daily Note ---
PT Daily Note-Current Subjective Patient reluctantly agrees to PT. Mental Status Patient Orientation: Person, Time Transfers SCALE: Activities may be completed with or without assistive devices. 9-Xdfdtlkzwe-syaclxm completes the activity by him/herself with no assistance from a helper. 5-Set-up or Clean-up Assistance-helper sets up or cleans up; patient completes activity. Maxie assists only prior to or following the activity. 4-Supervision or Touching Assistance-helper provides verbal cues and/or touching/steadying and/or contact guard assistance as patient completes activity. Assistance may be provided throughout the activity or intermittently. 3-Partial/Moderate Assistance-helper does LESS THAN HALF the effort. Maxie lifts, holds or supports trunk or limbs, but provides less than half the effort. 2-Substantial/Maximal Assistance-helper does MORE THAN HALF the effort. Maxie lifts or holds trunk or limbs and provides more than half the effort. 6-Ekcxizpsh-tvamcj does ALL the effort. Patient does none of the effort to complete the activity. Or, the assistance of 2 or more helpers is required for the patient to complete the activity. If activity was not attempted, code reason: 7-Patient Refused. 9-Not Applicable-not attempted and the patient did not perform the activity before the current illness, exacerbation or injury. 10-Not Attempted due to Environmental Limitations-(lack of equipment, weather restraints, etc.). 88-Not Attempted due to Medical Conditions or Safety Concerns. Roll Left to Right (QC): 5 Sit to Lying (QC): 5 Sit to Stand (QC): 5 Chair/Mry-hj-Ezobh Xfer(QC): 5 Bed to/from Chair: 5 Weight Bearing Right Lower Extremity: Right Weight Bearing/Tolerated Left Lower Extremity: Left Weight Bearing/Tolerated Gait Training Does the Patient Walk?: Yes Distance: 30' Walk 10 feet (QC): 5 Walk 50 ft with 2 Turns(QC): 88 Walk 150 ft (QC): 88 Gait Assistive Device: FWW WBOS/limits distance due to fatigue Assessment Patient up in recliner with needs met. Patient to dismiss to NH/AL on this date for continued care per RN. PT [facility] Goals [facility] Goals PT [facility] Goals Time Frame: Jan 05, 2019 Sit to Lying (QC): 6 Lying-Sitting on Side/Bed(QC): 6 Sit to Stand (QC): 6 Roll Left to Right (QC): 6 Chair/Qyb-mi-Aiiwn Xfer(QC): 6 Does the Patient Walk: Yes Distance: 150' Walk 10 feet (QC): 6 Walk 10ft-Uneven Surface(QC): 6 Walk 50ft with 2 Turns (QC): 6 Walk 150 ft (QC): 6 Gait Assistive Device: FWW PT Plan Treatment/Plan Treatment Plan: Discontinue PT Treatment Plan: Bed Mobility, Education, Functional Activity Honorio, Functional Strength, Gait, Safety, Therapeutic Exercise, Transfers Treatment Duration: Jan 05, 2019 Frequency: 6 times per week Estimated Hrs Per Day: .25 hour per day Patient and/or Family Agrees t: Yes Time/GCodes Time In: 1035 Time Out: 1047 Total Billed Treatment Time: 12 Total Billed Treatment 1 visit FA 12 min SALEEM YEN PT Dec 31, 2018 11:09
--- NOTE | 2018-12-31 14:06 | Wound Care Assessment ---
Wound Care Assessment Date Seen by Provider: Dec 31, 2018 Time Seen by Provider: 08:30 Chief Complaint Excoriation R buttock HPI The patient is a 73 year old male with long-standing venous insufficiency ulcers, currently well treated with Profore compression per [facility], and excoriation of R buttock due to moisture. He is incontinent of stool. Barrier cream ordered. Continue leg dressings as per [facility], and at discharge should continue to follow with [facility] for continued management. 12/31/18 Interval Note: Buttock and lower extremity wounds are stable by report. The patient is to follow-up with [facility] post discharge. Past Medical History: Admits Diabetes Type II, Admits Heart Disease (and COPD) Smoking Status: Never a Smoker Recreational Drug Use: No Alcohol Use: Denies Use Review of Systems Pulmonary: No Dyspnea Cardiovascular: No: Chest Pain Exam Vital Signs Date Time Temp Pulse Resp B/P (MAP) Pulse Ox O2 Delivery O2 Flow Rate FiO2 12/31/18 08:45 Room Air 12/31/18 08:08 36.7 73 16 127/60 (82) 91 12/28/18 16:00 4.00 Capillary Refill : Less Than 3 SecondsLess Than 3 Seconds General Appearance: no apparent distress HEENT: normal ENT inspection Cardiovascular: regular rate, rhythm Respiratory: lungs clear, no respiratory distress Extremities: other (The wounds are stable by report.) Results Laboratory Tests 12/30/18 16:12: Glucometer 159H 12/30/18 20:35: Glucometer 152H 12/31/18 05:44: Glucometer 152H 12/31/18 10:48: Glucometer 179H Microbiology 12/26/18 Urine Culture - Final, Complete 3 or more isolates Assessment/Plan/Dx 1. Moisture associated skin damage, R buttock. 2. Venous insufficiency ulcer BLE, treated with Porfore compression. Plan: Barrier cream to perineum, continue same dressings to legs. May follow- up with [facility] as out-patient. PRADIP MADISON MD Dec 31, 2018 14:06 POS
[2018-12-31 16:30] VITALS: BP 124/58
--- NOTE | 2019-01-01 07:28 | Discharge Summary ---
Diagnosis/Chief Complaint Date of Admission Dec 26, 2018 at 04:10 Date of Discharge Dec 31, 2018 at 19:30 Discharge Date: Dec 31, 2018 Discharge Time: 07:25 Discharge Diagnosis S pain. CAD. Dementia. Anemia. Diabetes. Renal insufficiency. Hyponatremia. History of cellulitis of leg. Venous insufficiency ulcers of leg. Dyspnea. Hypertension. Hyperlipidemia. Stent to LAD Reason Hospital Visit Patient brought by family to the emergency room. Patient had chest pain. According to the chart chest pain in the chest and upper abdomen and lower chest. Patient short-term memory is not good. Patient knows 10-2 = 8 and patient also knows the date. Patient to be evaluated for dementia. Patient been [facility] for the last under days. Patient treated at [facility] for leg cellulitis and possibly osteomyelitis and has been on antibiotics IV. Patient has a history of diabetes and CAD. Patient has oxygen at home and doesn't use it. Patient lives alone. Children are close by. 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 Patient discharged to home. Family looking for assisted living or [facility] Labs (last 24 hrs) Laboratory Tests 12/26/18 02:53: White Blood Count 7.1, Red Blood Count 4.26L, Hemoglobin 11.6L, Hematocrit 35L, Mean Corpuscular Volume 82, Mean Corpuscular Hemoglobin 27, Mean Corpuscular Hemoglobin Concent 33, Red Cell Distribution Width 16.7H, Platelet Count 210, Mean Platelet Volume 11.0H, Neutrophils (%) (Auto) 69, Lymphocytes (%) (Auto) 16, Monocytes (%) (Auto) 11, Eosinophils (%) (Auto) 4, Basophils (%) (Auto) 0, Neutrophils # (Auto) 4.9, Lymphocytes # (Auto) 1.1, Monocytes # (Auto) 0.8, Eosinophils # (Auto) 0.3, Basophils # (Auto) 0.0, Prothrombin Time 14.1, INR Comment 1.1, Activated Partial Thromboplast Time 41H, Sodium Level 132L, Potassium Level 3.8, Chloride Level 94L, Carbon Dioxide Level 25, Anion Gap 13, Blood Urea Nitrogen 36H, Creatinine 1.56H, Estimat Glomerular Filtration Rate 44 , BUN/Creatinine Ratio 23, Glucose Level 212H, Calcium Level 9.0, Corrected Alex cium 9.3, Magnesium Level 1.7, Total Bilirubin 0.4, Aspartate Amino Transf (AST/SGOT) 35H, Alanine Aminotransferase (ALT/SGPT) 22, Alkaline Phosphatase 102, Total Creatine Kinase 91, Creatine Kinase MB 2.6, Myoglobin 128.1H, Troponin I < 0.028, B-Type Natriuretic Peptide 109.6H, Total Protein 7.1, Albumin 3.6, Amylase Level 55, Lipase 24 12/26/18 08:15: Glucometer 230H 12/26/18 09:20: Sodium Level 131L, Potassium Level 3.9, Chloride Level 96L, Carbon Dioxide Level 27, Anion Gap 8, Blood Urea Nitrogen 32H, Creatinine 1.34H, Estimat Glomerular Filtration Rate 52, BUN/Creatinine Ratio 24, Glucose Level 193H, Calcium Level 8.8, Corrected Calcium 9.4, Total Bilirubin 0.4, Aspartate Amino Transf (AST/SGOT) 31, Alanine Aminotransferase (ALT/SGPT) 20, Alkaline Phosphatase 93, Troponin I < 0.028, Total Protein 6.6, Albumin 3.3, Mean Blood Glucose 206H, Hemoglobin A1c 8.8H, Vitamin B12 Level 384, Folate 15.9, Thyroid Stimulating Hormone (TSH) 1.45 12/26/18 11:29: Glucometer 138H 12/26/18 16:57: Glucometer 85 12/26/18 22:47: Urine Color YELLOW, Urine Clarity SL CLOUDY, Urine pH 5, Urine Specific [place] 1.015L, Urine Protein 2+H, Urine Glucose (UA) NEGATIVE, Urine Ketones NEGATIVE, Urine Nitrite NEGATIVE, Urine Bilirubin NEGATIVE, Urine Urobilinogen NORMAL, Urine Leukocyte Esterase 3+H, Urine RBC (Auto) 3+H, Urine RBC 2-5H, Urine WBC 10-25H, Urine Crystals NONE, Urine Bacteria FEWH, Urine Casts NONE, Urine Mucus NEGATIVE, Urine Yeast MODERATEH, Urine Culture Indicated YES 12/27/18 03:50: White Blood Count 6.4, Red Blood Count 3.89L, Hemoglobin 10.5L, Hematocrit 32L, Mean Corpuscular Volume 83, Mean Corpuscular Hemoglobin 27, Mean Corpuscular Hemoglobin Concent 33, Red Cell Distribution Width 16.7H, Platelet Count 188, Mean Platelet Volume 10.6H, Neutrophils (%) (Auto) 63, Lymphocytes (%) (Auto) 20, Monocytes (%) (Auto) 10, Eosinophils (%) (Auto) 7, Basophils (%) (Auto) 1, Neutrophils # (Auto) 4.0, Lymphocytes # (Auto) 1.3, Monocytes # (Auto) 0.6, Eosinophils # (Auto) 0.4H, Basophils # (Auto) 0.0, Sodium Level 135, Potassium Level 3.9, Chloride Level 98, Carbon Dioxide Level 25, Anion Gap 12, Blood Urea Nitrogen 30H, Creatinine 1.31H, Estimat Glomerular Filtration Rate 53, BUN/Creatinine Ratio 23, Glucose Level 123H, Calcium Level 8.9, Corrected Calcium 9.5, Total Bilirubin 0.4, Aspartate Amino Transf (AST/SGOT) 27, Alanine Aminotransferase (ALT/SGPT) 15, Alkaline Phosphatase 68, Total Protein 6.4, Albumin 3.2 12/27/18 14:14: Glucometer 163H 12/27/18 16:05: Glucometer 184H 12/27/18 23:20: Glucometer 260H 12/28/18 06:15: Glucometer 128H 12/28/18 10:35: Glucometer 158H 12/28/18 16:12: Glucometer 194H 12/28/18 20:40: Glucometer 199H 12/29/18 02:41: White Blood Count 7.2, Red Blood Count 4.09L, Hemoglobin 10.9L, Hematocrit 34L, Mean Corpuscular Volume 84, Mean Corpuscular Hemoglobin 27, Mean Corpuscular Hemoglobin Concent 32, Red Cell Distribution Width 16.6H, Platelet Count 213, Mean Platelet Volume 10.3, Sodium Level 137, Potassium Level 4.4, Chloride Level 98, Carbon Dioxide Level 26, Anion Gap 13, Blood Urea Nitrogen 22H, Creatinine 1.29, Estimat Glomerular Filtration Rate 54, BUN/Creatinine Ratio 17, Glucose Level 183H, Calcium Level 8.9 12/29/18 11:18: Glucometer 252H 12/29/18 16:07: Glucometer 222H 12/29/18 20:40: Glucometer 174H 12/30/18 06:25: Glucometer 136H 12/30/18 11:25: Glucometer 206H 12/30/18 16:12: Glucometer 159H 12/30/18 20:35: Glucometer 152H 12/31/18 05:44: Glucometer 152H 12/31/18 10:48: Glucometer 179H 12/31/18 16:33: Glucometer 173H Microbiology 12/26/18 Urine Culture - Final, Complete 3 or more isolates Laboratory Tests 12/26/18 02:53 12/26/18 09:20 12/27/18 03:50 12/29/18 02:41 Pending Labs Microbiology Date/Time Source Procedure Growth Status 12/26/18 22:47 Urine Clean Catch Urine Culture - Final 3 or more isolates Complete Laboratory Tests 12/26/18 02:53: White Blood Count 7.1, Red Blood Count 4.26, Hemoglobin 11.6, Hematocrit 35, Mean Corpuscular Volume 82, Mean Corpuscular Hemoglobin 27, Mean Corpuscular Hemoglobin Concent 33, Red Cell Distribution Width 16.7, Platelet Count 210, Mean Platelet Volume 11.0, Neutrophils (%) (Auto) 69, Lymphocytes (%) (Auto) 16, Monocytes (%) (Auto) 11, Eosinophils (%) (Auto) 4, Basophils (%) (Auto) 0, Neutrophils # (Auto) 4.9, Lymphocytes # (Auto) 1.1, Monocytes # (Auto) 0.8, Eosinophils # (Auto) 0.3, Basophils # (Auto) 0.0, Prothrombin Time 14.1, INR Comment 1.1, Activated Partial Thromboplast Time 41, Sodium Level 132, Potassium Level 3.8, Chloride Level 94, Carbon Dioxide Level 25, Anion Gap 13, Blood Urea Nitrogen 36, Creatinine 1.56, Estimat Glomerular Filtration Rate 44, BUN/Creatinine Ratio 23, Glucose Level 212, Calcium Level 9.0, Corrected Calcium 9.3, Magnesium Level 1.7, Total Bilirubin 0.4, Aspartate Amino Transf (AST/SGOT) 35, Alanine Aminotransferase (ALT/SGPT) 22, Alkaline Phosphatase 102, Total Creatine Kinase 91, Creatine Kinase MB 2.6, Myoglobin 128.1, Troponin I < 0.028, B-Type Natriuretic Peptide 109.6, Total Protein 7.1, Albumin 3.6, Amylase Level 55, Lipase 24 12/26/18 08:15: Glucometer 230 12/26/18 09:20: Sodium Level 131, Potassium Level 3.9, Chloride Level 96, Carbon Dioxide Level 27, Anion Gap 8, Blood Urea Nitrogen 32, Creatinine 1.34, Estimat Glomerular Filtration Rate 52, BUN/Creatinine Ratio 24, Glucose Level 193, Calcium Level 8.8, Corrected Calcium 9.4, Total Bilirubin 0.4, Aspartate Amino Transf (AST/SGOT) 31, Alanine Aminotransferase (ALT/SGPT) 20, Alkaline Phosphatase 93, Troponin I < 0.028, Total Protein 6.6, Albumin 3.3, Mean Blood Glucose 206, Hemoglobin A1c 8.8, Vitamin B12 Level 384, Folate 15.9, Thyroid Stimulating Hormone (TSH) 1.45 12/26/18 11:29: Glucometer 138 12/26/18 16:57: Glucometer 85 12/26/18 22:47: Urine Color YELLOW, Urine Clarity SL CLOUDY, Urine pH 5, Urine Specific [place] 1.015, Urine Protein 2+, Urine Glucose (UA) NEGATIVE, Urine Ketones NEGATIVE, Urine Nitrite NEGATIVE, Urine Bilirubin NEGATIVE, Urine Urobilinogen NORMAL, Urine Leukocyte Esterase 3+, Urine RBC (Auto) 3+, Urine RBC 2-5, Urine WBC 10- 25, Urine Crystals NONE, Urine Bacteria FEW, Urine Casts NONE, Urine Mucus NEGATIVE, Urine Yeast MODERATE, Urine Culture Indicated YES 12/27/18 03:50: White Blood Count 6.4, Red Blood Count 3.89, Hemoglobin 10.5, Hematocrit 32, Mean Corpuscular Volume 83, Mean Corpuscular Hemoglobin 27, Mean Corpuscular Hemoglobin Concent 33, Red Cell Distribution Width 16.7, Platelet Count 188, Mean Platelet Volume 10.6, Neutrophils (%) (Auto) 63, Lymphocytes (%) (Auto) 20, Monocytes (%) (Auto) 10, Eosinophils (%) (Auto) 7, Basophils (%) (Auto) 1, N eutrophils # (Auto) 4.0, Lymphocytes # (Auto) 1.3, Monocytes # (Auto) 0.6, Eosinophils # (Auto) 0.4, Basophils # (Auto) 0.0, Sodium Level 135, Potassium Level 3.9, Chloride Level 98, Carbon Dioxide Level 25, Anion Gap 12, Blood Urea Nitrogen 30, Creatinine 1.31, Estimat Glomerular Filtration Rate 53, BUN/Creatinine Ratio 23, Glucose Level 123, Calcium Level 8.9, Corrected Calcium 9.5, Total Bilirubin 0.4, Aspartate Amino Transf (AST/SGOT) 27, Alanine Aminotransferase (ALT/SGPT) 15, Alkaline Phosphatase 68, Total Protein 6.4, Albumin 3.2 12/27/18 14:14: Glucometer 163 12/27/18 16:05: Glucometer 184 12/27/18 23:20: Glucometer 260 12/28/18 06:15: Glucometer 128 12/28/18 10:35: Glucometer 158 12/28/18 16:12: Glucometer 194 12/28/18 20:40: Glucometer 199 12/29/18 02:41: White Blood Count 7.2, Red Blood Count 4.09, Hemoglobin 10.9, Hematocrit 34, Mean Corpuscular Volume 84, Mean Corpuscular Hemoglobin 27, Mean Corpuscular H emoglobin Concent 32, Red Cell Distribution Width 16.6, Platelet Count 213, Mean Platelet Volume 10.3, Sodium Level 137, Potassium Level 4.4, Chloride Level 98, Carbon Dioxide Level 26, Anion Gap 13, Blood Urea Nitrogen 22, Creatinine 1.29, Estimat Glomerular Filtration Rate 54, BUN/Creatinine Ratio 17, Glucose Level 183, Calcium Level 8.9 12/29/18 11:18: Glucometer 252 12/29/18 16:07: Glucometer 222 12/29/18 20:40: Glucometer 174 12/30/18 06:25: Glucometer 136 12/30/18 11:25: Glucometer 206 12/30/18 16:12: Glucometer 159 12/30/18 20:35: Glucometer 152 12/31/18 05:44: Glucometer 152 12/31/18 10:48: Glucometer 179 12/31/18 16:33: Glucometer 173 Discussion & Recommendations To be followed up in office next week. To follow-up with cardiology Discharge Home Medications: Active Scripts Active Namenda (Memantine HCl) 5 Mg Tablet 5 Mg PO DAILY 30 Days Clopidogrel (Clopidogrel Bisulfate) 75 Mg Tablet 75 Mg PO DAILY 30 Days Aricept (Donepezil HCl) 5 Mg Tablet 5 Mg PO HS 30 Days Reported Zoloft (Sertraline HCl) 50 Mg Tablet 50 Mg PO DAILY Venelex Ointment (Balsam Daphne/[place] Oil) 60 Gm Oint...g. TP BID APPLY TO BUTTOCKS Trulicity (Dulaglutide) 0.75 Mg/0.5 Ml Pen.injctr 0.75 Mg SQ TU Guaifenesin Dm Syrup (Guaifenesin/Dextromethorphan) 5 Ml Syrup 5 Ml PO Q6H PRN Loratadine 10 Mg Tablet 10 Mg PO DAILY Iprat-Albut 0.5-3(2.5) mg/3 ml (Ipratropium/Albuterol Sulfate) 3 Ml Ampul.neb 3 Ml NEB Q4H PRN Bumetanide 1 Mg Tablet 3 Mg PO DAILY Basaglar Kwikpen U-100 (Insulin Glargine,Hum.rec.anlog) 100 Unit/1 Ml Insuln.pen 40 Unit SQ DAILY Basaglar Kwikpen U-100 (Insulin Glargine,Hum.rec.anlog) 100 Unit/1 Ml Insuln.pen 24 Units SC HS Multivitamins (Multivitamin) 1 Each Tablet 1 Tab PO DAILY Novolog Flexpen (Insulin Aspart) 300 Units/3 Ml Solution 4-12 Units SC ACHS 60-140 = 0 UNITS 141-180 = 4 UNITS 181-220 = 6 UNITS 221-260 = 8 UNITS 261-300 = 10 UNITS 301-340 = 12 UNITS 341-380 = 14 UNITS 381-400 = 16 UNITS CALL MD IF GREATER THAN 400 Aspirin EC (Aspirin) 81 Mg Tablet.dr 81 Mg PO DAILY Ranitidine HCl 150 Mg Tablet 150 Mg PO BID Atorvastatin Calcium 10 Mg Tablet 10 Mg PO HS Instructions to patient/family Please see electronic discharge instructions given to patient. Clinical Quality Measures AMI/AHF: ASA po Prior to arrival: Yes (324) DVT/VTE Risk/Contraindication: Risk Factor Score Per Nursin RFS Level Per Nursing on Admit: 4+=Very High Contraindications-Pharm: Other *list below* TAMIKA WHITE DO Jan 01, 2019 07:28 POS
[2019-01-01] MEDS ORDERED: NON-FORMULARY MEDICATION 1 EA EA (Dulaglutide (Trulicity) 0.75 MG) SQ SCH (14:30)
== END 2018-12-31 19:30 | disposition designated cancer center or children's hospital (05) ==
LOC: EDUNIT# 02:47 → ER 02:49 → CSD 04:10 → INTOOBSV 04:10 → ER 05:44 → 4TH 12-29 12:34
PROVIDERS: ADMIT Family Medicine; ATTEND Family Medicine
DX: I25.10 Atherosclerotic heart disease of native coronary artery without angina pectoris (principal); I10 Essential (primary) hypertension; I73.9 Peripheral vascular disease, unspecified; I49.5 Sick sinus syndrome; E78.00 Pure hypercholesterolemia, unspecified; E11.622 Type 2 diabetes mellitus with other skin ulcer; E11.40 Type 2 diabetes mellitus with diabetic neuropathy, unspecified; D64.9 Anemia, unspecified; J44.9 Chronic obstructive pulmonary disease, unspecified; G47.30 Sleep apnea, unspecified; M19.90 Unspecified osteoarthritis, unspecified site; N28.9 Disorder of kidney and ureter, unspecified; L97.929 Non-pressure chronic ulcer of unspecified part of left lower leg with unspecified severity; L97.919 Non-pressure chronic ulcer of unspecified part of right lower leg with unspecified severity; K21.9 Gastro-esophageal reflux disease without esophagitis; F03.90 Unspecified dementia, unspecified severity, without behavioral disturbance, psychotic disturbance, mood disturbance, and anxiety; Z79.82 Long term (current) use of aspirin; Z79.891 Long term (current) use of opiate analgesic; Z79.4 Long term (current) use of insulin; Z88.1 Allergy status to other antibiotic agents; Z90.89 Acquired absence of other organs; Z88.0 Allergy status to penicillin; Z95.1 Presence of aortocoronary bypass graft; Z86.79 Personal history of other diseases of the circulatory system; Z82.61 Family history of arthritis
CPT/HCPCS: 36415; 71045; 78452; 80048; 80053; 81000; 82150; 82550; 82553; 82607; 82746; 82962; 83036; 83690; 83735; 83874; 83880; 84443; 84484; 85025; 85027; 85610; 85730; 87088; 93005; 93017; 93041; 93458; 96372; 96374; 96376

== ENCOUNTER 2019-04-01 19:37 | Inpatient (IN) | payer MEDICARE ==
[~2019-04-01] VITALS: Ht 175 cm; Wt 137.7 kg
[~2019-04-01 19:37] MED LIST changes: +BALS60OI TP; +DONE5TAB8 PO; +DULA0.75 SQ; +GUAI5SYR PO; +INSU100I34 SC; +INSU100I34 SQ; +IPRA3AMP31 NEB; +LORA10TA7 PO; -MAGN400T6 PO; +MAGN400T8 PO; +MEMA5TAB PO; +MULT1TAB69 PO; +SERT50TA2 PO
--- NOTE | 2019-04-01 19:55 | ED General ---
General Stated Complaint: CONFUSION/WEAKNESS Source of Information: Patient Exam Limitations: No Limitations History of Present Illness Date Seen by Provider: Apr 01, 2019 Time Seen by Provider: 19:53 Initial Comments He was noted to be confused, he told family that some gentleman entered his house and told him to get on the floor and wouldn't feed him for 3 days. However he was seen by family last night. He is otherwise alert and oriented to person place time and situation. Timing/Duration: 1-2 Days Severity: Moderate Allergies and Home Medications Allergies Coded Allergies: PING Inhibitors (Verified Allergy, Mild, 05/16/15) UNCONTROLLED COUGHING amoxicillin (Verified Allergy, Mild, itching (PT HAS RECEIVED CEFEPIME & ANCEF IN THE PAST), 11/25/15) Home Medications Aspirin 81 Mg Tablet.dr, 81 MG PO DAILY, (Reported) Atorvastatin Calcium 10 Mg Tablet, 10 MG PO HS, (Reported) Balsam Daphne/[place] Oil 60 Gm Oint...g., TP BID, (Reported) APPLY TO BUTTOCKS Bumetanide 1 Mg Tablet, 3 MG PO DAILY, (Reported) Clopidogrel Bisulfate 75 Mg Tablet, 75 MG PO DAILY Prescribed by: FRANCESCA ANN on 12/31/18 0841 Donepezil HCl 5 Mg Tablet, 5 MG PO HS Prescribed by: FRANCESCA ANN on 12/31/18 0841 Dulaglutide 0.75 Mg/0.5 Ml Pen.injctr, 0.75 MG SQ Tu, (Reported) Guaifenesin/Dextromethorphan 5 Ml Syrup, 5 ML PO Q6H PRN for COUGH, (Reported) Insulin Aspart 300 Units/3 Ml Solution, 4-12 UNITS SC ACHS, (Reported) 60-140 = 0 UNITS 141-180 = 4 UNITS 181-220 = 6 UNITS 221-260 = 8 UNITS 261- 300 = 10 UNITS 301-340 = 12 UNITS 341-380 = 14 UNITS 381-400 = 16 UNITS CALL MD IF GREATER THAN 400 Insulin Glargine,Hum.rec.anlog 100 Unit/1 Ml Insuln.pen, 24 UNITS SC HS, (Reported) Insulin Glargine,Hum.rec.anlog 100 Unit/1 Ml Insuln.pen, 40 UNIT SQ DAILY, (Reported) Ipratropium/Albuterol Sulfate 3 Ml Ampul.neb, 3 ML NEB Q4H PRN for SHORTNESS OF BREATH, (Reported) Loratadine 10 Mg Tablet, 10 MG PO DAILY, (Reported) Memantine HCl 5 Mg Tablet, 5 MG PO DAILY Prescribed by: FRANCESCA ANN on 12/31/18 0841 Multivitamin 1 Each Tablet, 1 TAB PO DAILY, (Reported) Ranitidine HCl 150 Mg Tablet, 150 MG PO BID, (Reported) Sertraline HCl 50 Mg Tablet, 50 MG PO DAILY, (Reported) Patient Home Medication List Home Medication List Reviewed: Yes Review of Systems Review of Systems Constitutional: see HPI, weakness EENTM: see HPI Respiratory: no symptoms reported Cardiovascular: no symptoms reported Genitourinary: no symptoms reported Musculoskeletal: no symptoms reported Skin: no symptoms reported Psychiatric/Neurological: No Symptoms Reported Hematologic/Lymphatic: No Symptoms Reported Immunological/Allergic: no symptoms reported Past Opubuyk-Ogggzx-Enslde Hx Patient Social History 2nd Hand Smoke Exposure: No Recent Foreign Travel: No Contact w/Someone Who Travel: No Recent Hopitalizations: No Immunizations Up To Date Tetanus Booster (TDap): Less than 5yrs PED Vaccines UTD: Yes Seasonal Allergies Seasonal Allergies: No Past Medical History Surgeries: Yes (RIGHT TOTAL KNEE REPLACEMENT) Cardiac, Coronary Stent, Joint Replacement, Orthopedic, Tonsillectomy, Vascular Surgery Respiratory: Yes (HAS CPAP BUT DOESN'T USE IT) Sleep Apnea, COPD Currently Using CPAP: No Currently Using BIPAP: No Cardiac: Yes (STENTS X2) Chronic Edema/Swelling, Coronary Artery Disease, Heart Attack, High Cholesterol, Hypertension, Irregular Heartbeat, Peripheral Vascular Neurological: Yes (POOR MEMORY) Neuropathy Reproductive Disorders: No Sexually Transmitted Disease: No HIV/AIDS: No Genitourinary: No Gastrointestinal: Yes Gastroesophageal Reflux Musculoskeletal: Yes (R TKR) Arthritis Endocrine: Yes (MORBID OBESITY) Diabetes, Insulin dep HEENT: No Loss of Vision: Denies Hearing Impairment: Denies, Hard of Hearing Cancer: No Psychosocial: No Integumentary: Yes Blood Disorders: No Adverse Reaction/Blood Tranf: No Family Medical History Family history: Arthritis 19 FATHER 19 MOTHER Headache 19 FATHER 19 MOTHER Hearing loss 19 MOTHER History of - anemia 19 MOTHER Stroke 19 FATHER No Family History of: AIDS Abdominal aortic aneurysm Abdominal aortic aneurysm Kaz's disease Kaz's disease Alcoholism Alzheimer's disease Aphasia Cancer Cancer of colon Cataract Chest pain Congenital heart disease Congestive heart failure Cystic fibrosis Dementia Dysphagia Family history: Allergy Family history: Alzheimer's disease Family history: Asthma Family history: Breast disease Family history: Cardiovascular disease Family history: Coronary thrombosis Family history: Diabetes mellitus Family history: Gastrointestinal disease Family history: Glaucoma Family history: Hypertension Family history: Osteoporosis Family history: Thyroid disorder Heart disease Hereditary disease History of - disorder History of - respiratory disease History of drug abuse Human immunodeficiency virus (HIV) seropositivity Hypercholesterolemia Infertile Kidney disease Malignant neoplasm of lung Myocardial infarction Parkinson's disease Prostate cancer Psychotic disorder Seizure disorder Thyroid disease Tuberculosis Tuberculosis Visual impairment Heart Disease, Stroke, Vascular Disease Physical Exam Vital Signs Vital Signs - First Documented 04/01/19 19:50 Temp 35.7 Pulse 80 Resp 17 B/P (MAP) 127/79 (95) Pulse Ox 97 O2 Delivery Nasal Cannula Capillary Refill : Height, Weight, BMI Height: 5'8.00" Weight: 348lbs. 3.0oz. 157.060598up; 45.96 BMI Method:Stated General Appearance: No Apparent Distress, WD/WN, Chronically ill, Obese HEENT: PERRL/EOMI Neck: Full Range of Motion, Normal Inspection Respiratory: No Accessory Muscle Use, Accessory Muscle Use Gastrointestinal: Normal Bowel Sounds, Non Tender, Soft Extremity: Normal Capillary Refill, Normal Inspection Neurologic/Psychiatric: Alert, Oriented x3 Skin: Normal Color, Warm/Dry Comments Bilateral lower extremities wrapped up to the knee with Coban and an Unna boots. He's been following with wound care at his home. Focused Exam Lactate Level 04/01/19 19:54: Lactic Acid Level 1.77 Lactic Acid Level Laboratory Tests Test 04/01/19 19:54 Lactic Acid Level 1.77 MMOL/L (0.50-2.00) Procedures/Interventions Date of ETT Placement: July 28, 2017 Time of ETT Placement: 1725 Progress/Results/Core Measures Suspected Sepsis SIRS Temperature: Pulse: Respiratory Rate: Laboratory Tests 04/01/19 19:54: White Blood Count 9.9 Blood Pressure / Mean: 04/01/19 19:54: Lactic Acid Level 1.77 Laboratory Tests 04/01/19 19:54: Creatinine 1.52H, INR Comment 1.1, Platelet Count 246, Total Bilirubin 0.8 Results/Orders Lab Results Laboratory Tests Test 04/01/19 19:42 04/01/19 19:54 Range/Units Urine Color YELLOW Urine Clarity CLOUDY Urine pH 6.0 5-9 Urine Specific [place] 1.020 1.016-1.022 Urine Protein 1+ H NEGATIVE Urine Glucose (UA) NEGATIVE NEGATIVE Urine Ketones NEGATIVE NEGATIVE Urine Nitrite NEGATIVE NEGATIVE Urine Bilirubin NEGATIVE NEGATIVE Urine Urobilinogen 0.2 < = 1.0 MG/DL Urine Leukocyte Esterase 2+ H NEGATIVE Urine RBC (Auto) 2+ H NEGATIVE Urine RBC RARE /HPF Urine WBC TNTC H /HPF Urine Squamous Epithelial Cells RARE /HPF Urine Crystals NONE /LPF Urine Bacteria MODERATE H /HPF Urine Casts NONE /LPF Urine Mucus NEGATIVE /LPF Urine Culture Indicated YES White Blood Count 9.9 4.3-11.0 10^3/uL Red Blood Count 4.64 4.35-5.85 10^6/uL Hemoglobin 12.1 L 13.3-17.7 G/DL Hematocrit 38 L 40-54 % Mean Corpuscular Volume 82 80-99 FL Mean Corpuscular Hemoglobin 26 25-34 PG Mean Corpuscular Hemoglobin Concent 32 32-36 G/DL Red Cell Distribution Width 15.5 H 10.0-14.5 % Platelet Count 246 130-400 10^3/uL Mean Platelet Volume 10.7 H 7.4-10.4 FL Neutrophils (%) (Auto) 82 H 42-75 % Lymphocytes (%) (Auto) 9 L 12-44 % Monocytes (%) (Auto) 8 0-12 % Eosinophils (%) (Auto) 1 0-10 % Basophils (%) (Auto) 0 0-10 % Neutrophils # (Auto) 8.2 H 1.8-7.8 X 10^3 Lymphocytes # (Auto) 0.9 L 1.0-4.0 X 10^3 Monocytes # (Auto) 0.8 0.0-1.0 X 10^3 Eosinophils # (Auto) 0.1 0.0-0.3 10^3/uL Basophils # (Auto) 0.0 0.0-0.1 10^3/uL Prothrombin Time 15.0 H 12.2-14.7 SEC INR Comment 1.1 0.8-1.4 Activated Partial Thromboplast Time 37 H 24-35 SEC Sodium Level 141 135-145 MMOL/L Potassium Level 4.4 3.6-5.0 MMOL/L Chloride Level 104 98-107 MMOL/L Carbon Dioxide Level 20 L 21-32 MMOL/L Anion Gap 17 H 5-14 MMOL/L Blood Urea Nitrogen 31 H 7-18 MG/DL Creatinine 1.52 H 0.60-1.30 MG/DL Estimat Glomerular Filtration Rate 45 BUN/Creatinine Ratio 20 Glucose Level 190 H 70-105 MG/DL Lactic Acid Level 1.77 0.50-2.00 MMOL/L Calcium Level 9.3 8.5-10.1 MG/DL Corrected Calcium 9.7 8.5-10.1 MG/DL Magnesium Level 1.3 L 1.6-2.4 MG/DL Total Bilirubin 0.8 0.1-1.0 MG/DL Aspartate Amino Transf (AST/SGOT) 50 H 5-34 U/L Alanine Aminotransferase (ALT/SGPT) 18 0-55 U/L Alkaline Phosphatase 80 40-136 U/L B-Type Natriuretic Peptide 87.1 <100.0 PG/ML Total Protein 6.9 6.4-8.2 GM/DL Albumin 3.5 3.2-4.5 GM/DL My Orders Orders - JOAN RAGLAND [employer] Cbc With Automated Diff (04/01/19 19:51) Comprehensive Metabolic Panel (04/01/19 19:51) Protime With Inr (04/01/19 19:51) Partial Thromboplastin Time (04/01/19 19:51) Ua Culture If Indicated (04/01/19 19:51) Straight Cath (Urinary) (04/01/19 19:51) Chest 1 View, Ap/Pa Only (04/01/19 19:51) BNP (04/01/19 19:51) Ekg Tracing (04/01/19 19:51) Ed Iv/Invasive Line Start (04/01/19 19:51) Blood Culture (04/01/19 19:51) Lactic Acid Analyzer (04/01/19 19:51) Magnesium (04/01/19 19:51) Ct Head Wo (04/01/19 19:55) Urine Culture (04/01/19 19:42) Ceftriaxone For Iv Use (Rocephin For I (04/01/19 20:15) Medications Given in ED Current Medications Medications Dose Ordered Sig/Arlette Route Start Time Stop Time Status Last Admin Dose Admin Ceftriaxone Sodium 1000 mg/ Sterile Water 10 ml @ 200 mls/hr ONCE ONCE IV 04/01/19 20:15 04/01/19 20:17 DC 04/01/19 20:45 200 MLS/HR Vital Signs/I&O 04/01/19 19:50 Temp 35.7 Pulse 80 Resp 17 B/P (MAP) 127/79 (95) Pulse Ox 97 O2 Delivery Nasal Cannula Capillary Refill : Departure Impression Primary Impression: Acute renal insufficiency Additional Impression: Urinary tract infection Disposition: ADMITTED INPATIENT Condition: Stable Admissions Decision to Admit Reason: Admit from ER (General) Decision to Admit/Date: Apr 01, 2019 Time/Decision to Admit Time: 21:12 Departure-Patient Inst. Referrals: TAMIKA WHITE DO (PCP/Family) Primary Care Physician JOAN RAGLAND APRN Apr 01, 2019 19:55
[2019-04-01 19:57] LABS: BILIRUBIN,URINE NEGATIVE (NEGATIVE); CLARITY,URINE CLOUDY; COLOR,URINE YELLOW; GLUCOSE, URINE (UA) NEGATIVE (NEGATIVE); KETONES,URINE NEGATIVE (NEGATIVE); LEUKOCYTE ESTERASE ,URINE 2+ (NEGATIVE); NITRITE,URINE NEGATIVE (NEGATIVE); PROTEIN,URINE 1+ (NEGATIVE)
[2019-04-01 20:03] LABS: BACTERIA,URINE MODERATE /HPF; RBC,URINE RARE /HPF; SQUAMOUS EPITHELIAL CELL,UR RARE /HPF; WBC,URINE TNTC /HPF
[2019-04-01 20:03] LABS: BASOPHILS % (AUTO) 0 % (0-10); EOSINOPHILS # (AUTO) 0.1 10^3/uL (0.0-0.3); EOSINOPHILS % (AUTO) 1 % (0-10); HEMATOCRIT 38 % (40-54); HEMOGLOBIN 12.1 G/DL (13.3-17.7); LYMPHOCYTES # (AUTO) 0.9 X 10^3 (1.0-4.0); LYMPHOCYTES % (AUTO) 9 % (12-44); MEAN CORPUSCULAR HEMOGLOBIN 26 PG (25-34); MEAN CORPUSCULAR HGB CONC 32 G/DL (32-36); MEAN CORPUSCULAR VOLUME 82 FL (80-99); MEAN PLATELET VOLUME 10.7 FL (7.4-10.4); MONOCYTES # (AUTO) 0.8 X 10^3 (0.0-1.0); MONOCYTES % (AUTO) 8 % (0-12); NEUTROPHILS # (AUTO) 8.2 X 10^3 (1.8-7.8); NEUTROPHILS % (AUTO) 82 % (42-75); PLATELET COUNT 246 10^3/uL (130-400); RED CELL DISTRIBUTION WIDTH 15.5 % (10.0-14.5); WHITE BLOOD COUNT 9.9 10^3/uL (4.3-11.0)
[2019-04-01 20:14] LABS: INR 1.1 (0.8-1.4)
[2019-04-01] MEDS ORDERED: cefTRIAXone FOR IV USE 1,000 MG in WATER (STERILE) FOR INJECTION 10 ML IV ONE (20:15)
[2019-04-01 20:21] LABS: ALBUMIN 3.5 GM/DL (3.2-4.5); BILIRUBIN,TOTAL 0.8 MG/DL (0.1-1.0); CALCIUM 9.3 MG/DL (8.5-10.1); CREATININE SERUM 1.52 MG/DL (0.60-1.30); MAGNESIUM 1.3 MG/DL (1.6-2.4); POTASSIUM 4.4 MMOL/L (3.6-5.0); TOTAL PROTEIN 6.9 GM/DL (6.4-8.2)
--- NOTE | 2019-04-01 22:02 | Diagnostic Imaging Report ---
PROCEDURE: CT head without contrast. TECHNIQUE: Multiple contiguous axial images were obtained through the brain without the use of intravenous contrast. Auto Exposure Controls were utilized during the CT exam to meet ALARA standards for radiation dose reduction. INDICATION: Generalized weakness and confusion EXAMINATION: CT brain without contrast 04/01/2019 Comparison made to 07/28/2017 FINDINGS: Chronic ischemic changes are noted in a periventricular distribution similar to previous imaging. Diffuse atherosclerotic disease is also seen. No hemorrhage is seen with no acute infarct. No mass, mass effect or midline shift, no hydrocephalus. Paranasal sinuses and mastoid air cells unremarkable. IMPRESSION: 1. Diffuse chronic findings. No acute disease. If symptoms persist or worsen, MRI recommended. Dictated by: Dictated on workstation # [id number]
--- NOTE | 2019-04-01 22:02 | Diagnostic Imaging Report ---
INDICATION: Generalized weakness, confusion. EXAMINATION: Chest 04/01/2019 COMPARISON is made to 12/26/2018 FINDINGS: Right hemidiaphragm elevated. Prominence of the perihilar regions, right worse than left, stable from previous. Thoracic pulmonary hypertension. The heart is stable. No pneumothorax, infiltrates or effusions. IMPRESSION: Stable chest. Dictated by: Dictated on workstation # [id number]
[2019-04-01 23:05] VITALS: BP 150/79
--- NOTE | 2019-04-01 23:05 | NUR ---
JAYESH LOVE admitted to room 430-1, with an admitting diagnosis of UTI/confusion, on 04/01/19 from ER via bed, accompanied by er staff and son. JAYESH LOVE introduced to surroundings, call light, bed controls, phone, TV, temperature control, lights, meal times, smoking policy, visitor policy, side rail policy, bathrooms and showers. Patient Rights given to patient in the handbook. JAYESH LOVE and son verbalizes understanding that [facility] is not responsible for the loss or damage to any personal effects or valuables that are kept in the patients posession during their hospitalization.
[2019-04-01 23:35] VITALS: BP 150/79
[2019-04-02] MEDS ORDERED: NS IV 1000 ML 1,000 ML ONE (00:01)
[2019-04-02] MEDS ORDERED: MAGNESIUM 1 GM/100 ML IVPB 400 ML IV ONE (00:02)
[2019-04-02] MEDS: NS IV 1000 ML 1,000 ML IV SCH ×2 (00:12→16:32)
[2019-04-02] MEDS: MAGNESIUM 1 GM/100 ML IVPB IV SCH ×4 (00:13→03:26)
[2019-04-02] MEDS ORDERED: ONDANSETRON 4 MG/2 ML (SDV) Z0FRAN IV PRN (00:15)
[2019-04-02 04:25] VITALS: BP 124/68
[2019-04-02] MEDS: inSUlin ASPART (NovoLOG) 1 UNIT/0.01 ML (CHARGE PER UNIT) SC SCH ×4 (05:32→21:35)
--- NOTE | 2019-04-02 05:41 | Diagnostic Imaging Report ---
INDICATION: Weakness and confusion. COMPARISON: CT dated 07/28/2017 TECHNIQUE: Single radiograph of pelvis dated 04/01/2019. FINDINGS: Examination is limited secondary to patient body habitus. Mild degenerative changes within the partially visualized lower lumbar spine. Extensive vascular calcifications. The sacroiliac joints appear symmetric and intact. No acute fracture or dislocation. No destructive osseous process. Mild degenerative changes within bilateral hips. IMPRESSION: No acute osseous abnormality with extensive vascular calcifications and mild degenerative changes. If there remains a high clinical concern for underlying occult fracture, then further evaluation with CT or MRI would be recommended. Dictated by: Dictated on workstation # [id number]
--- NOTE | 2019-04-02 05:51 | Diagnostic Imaging Report ---
INDICATION: Generalized weakness, confusion. COMPARISON: None available TECHNIQUE: Four radiographs of the left tibia and fibula dated 04/01/2019. FINDINGS: No acute fracture. No dislocation. Severe degenerative changes of the ankle joint are noted with severe joint space narrowing and irregularity of articular surfaces. Deformity of the talus is noted with probable resultant deformity of the mid and distal calcaneus. Extensive vascular calcifications are present. Soft tissue calcifications are also noted involving the skin/subcutaneous tissues. Mild degenerative changes within the left knee. IMPRESSION: No acute osseous abnormality. Severe end-stage degenerative changes of the left ankle with an abnormal appearance of the hindfoot which may be on the basis of remote posttraumatic changes or underlying Charcot foot. Dedicated radiographs of the foot would help to further evaluate. Extensive vascular calcifications. Extensive soft tissue calcifications within the skin and underlying subcutaneous tissues which may relate to venous stasis though could relate to underlying connective tissue disease. Dictated by: Dictated on workstation # [id number]
[2019-04-02 07:08] LABS: BASOPHILS % (AUTO) 0 % (0-10); EOSINOPHILS # (AUTO) 0.2 10^3/uL (0.0-0.3); EOSINOPHILS % (AUTO) 3 % (0-10); HEMATOCRIT 35 % (40-54); LYMPHOCYTES # (AUTO) 1.2 X 10^3 (1.0-4.0); LYMPHOCYTES % (AUTO) 13 % (12-44); MEAN CORPUSCULAR HEMOGLOBIN 26 PG (25-34); MEAN CORPUSCULAR HGB CONC 32 G/DL (32-36); MEAN CORPUSCULAR VOLUME 83 FL (80-99); MEAN PLATELET VOLUME 11.1 FL (7.4-10.4); MONOCYTES # (AUTO) 0.8 X 10^3 (0.0-1.0); MONOCYTES % (AUTO) 9 % (0-12); NEUTROPHILS # (AUTO) 6.6 X 10^3 (1.8-7.8); NEUTROPHILS % (AUTO) 75 % (42-75); PLATELET COUNT 220 10^3/uL (130-400); RED CELL DISTRIBUTION WIDTH 15.3 % (10.0-14.5); WHITE BLOOD COUNT 8.8 10^3/uL (4.3-11.0)
[2019-04-02 07:24] LABS: ALBUMIN 3.2 GM/DL (3.2-4.5); BILIRUBIN,TOTAL 0.6 MG/DL (0.1-1.0); CALCIUM 8.9 MG/DL (8.5-10.1); CREATININE SERUM 1.37 MG/DL (0.60-1.30); POTASSIUM 4.1 MMOL/L (3.6-5.0); TOTAL PROTEIN 6.2 GM/DL (6.4-8.2)
--- NOTE | 2019-04-02 07:45 | NUR ---
Wound care (Vaibhav) consulted.
[2019-04-02 08:00] VITALS: BP 134/65
--- NOTE | 2019-04-02 08:00 | NUR ---
Dr. Bunch notified of DVT score at 9. New order rec for Lovenox 40mg SQ daily.
--- NOTE | 2019-04-02 08:01 | NUR ---
New order rec from Dr. Bunch for PT.
--- NOTE | 2019-04-02 08:37 | History & Physical ---
History of Present Illness History of Present Illness Reason for visit/HPI Patient brought to the emergency room by family member. Patient confused. Patient stated somebody told him down for 3 days. Family sees patient every day. Patient having confusion. Patient has UTI. Patient admitted Date of Admission Apr 01, 2019 at 20:50 Time Seen by a Provider: 08:34 I consulted on this patient on 04/02/19 08:34 Attending Physician Tamika White DO Admitting Physician Tamika White DO Consult Allergies and Home Medications Allergies Coded Allergies: PING Inhibitors (Verified Allergy, Mild, 05/16/15) UNCONTROLLED COUGHING amoxicillin (Verified Allergy, Mild, itching (PT HAS RECEIVED CEFEPIME & ANCEF IN THE PAST), 11/25/15) Home Medications Aspirin 81 Mg Tablet.dr, 81 MG PO DAILY, (Reported) Atorvastatin Calcium 10 Mg Tablet, 10 MG PO HS, (Reported) Balsam [place] Oil 60 Gm Oint...g., TP BID, (Reported) APPLY TO BUTTOCKS Bumetanide 1 Mg Tablet, 3 MG PO DAILY, (Reported) Clopidogrel Bisulfate 75 Mg Tablet, 75 MG PO DAILY Prescribed by: FRANCESCA ANN on 12/31/18 0841 Donepezil HCl 5 Mg Tablet, 5 MG PO HS Prescribed by: FRANCESCA ANN on 12/31/18 0841 Dulaglutide 0.75 Mg/0.5 Ml Pen.injctr, 0.75 MG SQ Tu, (Reported) Guaifenesin/Dextromethorphan 5 Ml Syrup, 5 ML PO Q6H PRN for COUGH, (Reported) Insulin Aspart 300 Units/3 Ml Solution, 4-12 UNITS SC ACHS, (Reported) 60-140 = 0 UNITS 141-180 = 4 UNITS 181-220 = 6 UNITS 221-260 = 8 UNITS 261- 300 = 10 UNITS 301-340 = 12 UNITS 341-380 = 14 UNITS 381-400 = 16 UNITS CALL MD IF GREATER THAN 400 Insulin Glargine,Hum.rec.anlog 100 Unit/1 Ml Insuln.pen, 24 UNITS SC HS, (Reported) Insulin Glargine,Hum.rec.anlog 100 Unit/1 Ml Insuln.pen, 40 UNIT SQ DAILY, (Reported) Ipratropium/Albuterol Sulfate 3 Ml Ampul.neb, 3 ML NEB Q4H PRN for SHORTNESS OF BREATH, (Reported) Loratadine 10 Mg Tablet, 10 MG PO DAILY, (Reported) Memantine HCl 5 Mg Tablet, 5 MG PO DAILY Prescribed by: FRANCESCA ANN on 12/31/18 0841 Multivitamin 1 Each Tablet, 1 TAB PO DAILY, (Reported) Ranitidine HCl 150 Mg Tablet, 150 MG PO BID, (Reported) Sertraline HCl 50 Mg Tablet, 50 MG PO DAILY, (Reported) Patient Home Medication List Home Medication List Reviewed: No Past Aisygrh-Rvwsgz-Jwufhr Hx Past Med/Social Hx: Reviewed Nursing Past Med/Soc Hx Patient Social History Marrital Status: Employed/Student: retired Alcohol Use: Denies Use Recreational Drug Use: No Smoking Status: Never a Smoker 2nd Hand Smoke Exposure: No Recent Foreign Travel: No Contact w/other who traveled: No Recent Hopitalizations: No Recent Infectious Disease Expo: No Immunizations Up To Date Tetanus Booster (TDap): Less than 5yrs Pediatric: Yes Seasonal Allergies Seasonal Allergies: No Past Medical History Surgeries: Cardiac, Coronary Stent, Joint Replacement, Orthopedic, Tonsillectomy, Vascular Surgery Respiratory: COPD Currently Using CPAP: No Currently Using BIPAP: No Cardiac: Chronic Edema/Swelling, Coronary Artery Disease, Heart Attack, High Cholesterol, Hypertension, Irregular Heartbeat, Peripheral Vascular Neurological: Neuropathy Reproductive: No Sexually Transmitted Disease: No HIV/AIDS: No Gastrointestinal: Gastroesophageal Reflux Musculoskeletal: Arthritis Endocrine: Diabetes, Insulin dep Loss of Vision: Denies Hearing Impairment: Denies, Hard of Hearing History of Blood Disorders: No Adverse Reaction to Blood [place]: No Family History Family history: Arthritis 19 FATHER 19 MOTHER Headache 19 FATHER 19 MOTHER Hearing loss 19 MOTHER History of - anemia 19 MOTHER Stroke 19 FATHER No Family History of: AIDS Abdominal aortic aneurysm Abdominal aortic aneurysm [place]'s disease [place]'s disease Alcoholism Alzheimer's disease Aphasia Cancer Cancer of colon Cataract Chest pain Congenital heart disease Congestive heart failure Cystic fibrosis Dementia Dysphagia Family history: Allergy Family history: Alzheimer's disease Family history: Asthma Family history: Breast disease Family history: Cardiovascular disease Family history: Coronary thrombosis Family history: Diabetes mellitus Family history: Gastrointestinal disease Family history: Glaucoma Family history: Hypertension Family history: Osteoporosis Family history: Thyroid disorder Heart disease Hereditary disease History of - disorder History of - respiratory disease History of drug abuse Human immunodeficiency virus (HIV) seropositivity Hypercholesterolemia Infertile Kidney disease Malignant neoplasm of lung Myocardial infarction Parkinson's disease Prostate cancer Psychotic disorder Seizure disorder Thyroid disease Tuberculosis Tuberculosis Visual impairment Heart Disease, Stroke, Vascular Disease Review of Systems Constitutional: weakness EENTM: no symptoms reported Respiratory: no symptoms reported Cardiovascular: no symptoms reported Gastrointestinal: no symptoms reported Genitourinary: no symptoms reported Physical Exam Vital Signs Vital Signs - First Documented 04/01/19 04/01/19 19:50 23:00 Temp 35.7 Pulse 80 Resp 17 B/P (MAP) 127/79 (95) Pulse Ox 97 O2 Delivery Nasal Cannula O2 Flow Rate 2.00 Capillary Refill : Less Than 3 Seconds Height, Weight, BMI Height: 5'8.00" Weight: 348lbs. 3.0oz. 157.513167no; 41.79 BMI Method:Stated General Appearance: No Apparent Distress, WD/WN Eyes: Bilateral Eye Normal Inspection HEENT: Normal ENT Inspection Neck: Full Range of Motion, Normal Inspection Respiratory: No Accessory Muscle Use, No Respiratory Distress Cardiovascular: Regular Rate, Rhythm Gastrointestinal: Non Tender, Soft Assessment/Plan Assessment and Plan Confusion. Diabetes. UTI. Lives alone. Coronary artery disease. Hyperlipidemia. Dementia Admission Diagnosis Admission Status: Inpatient Order (span 2 midnights) Reason for Inpatient Admission: Confusion. UTI Clinical Quality Measures DVT/VTE Risk/Contraindication: Risk Factor Score Per Nursin RFS Level Per Nursing on Admit: 4+=Very High TAMIKA WHITE DO Apr 02, 2019 08:37
[2019-04-02] MEDS ORDERED: SERT50TA9 PO (09:27)
[2019-04-02] MEDS ORDERED: FAMO20TA5 PO (09:27)
[2019-04-02] MEDS: ENOXAPARIN 40 MG/0.4 ML (LOVENOX) SYR SC SCH ×2 (09:27→21:26)
[2019-04-02] MEDS ORDERED: DONE5TAB30 PO (09:53)
[2019-04-02] MEDS ORDERED: CLOP75TA69 PO (09:53)
[2019-04-02] MEDS ORDERED: MEMA5TAB PO (09:53)
--- NOTE | 2019-04-02 09:55 | NUR ---
SPOKE WITH THE PATIENT ABOUT HIS MEDICATIONS. HE STATES HE GETS THEM ALL FILLED AT [facility] AND HE IS UNSURE OF THE NAMES, HE CAN NOT PRONOUNCE THEM AND DOES NOT THINK THEY WOULD SOUND FAMILIAR IF I LISTED THEM. 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 WHEN HE WAS HERE IN DECEMBER I UPDATED HIS MED LIST WITH THE ORDERS FROM A DETENTION HE HAD RECENTLY BEEN DISCHARGED FROM, SEE NOTE ON PREVIOUS VISIT FOR DETAILS. I CALLED DR. WHITE'S OFFICE AND THE LAST MEDICATION LIST THEY HAVE IS FROM THAT HOSPITAL VISIT. HE WAS SEEN AGAIN IN MARCH AT THEIR OFFICE BUT THEY STATE THEY WOULD NOT KNOW WHAT MEDICATION CHANGES HAD BEEN MADE IF THE PATIENT WAS NOT ABLE TO TELL THEM BUT THEY DO NOT HAVE ON RECORD THAT ANY CHANGES WERE MADE BY THEM. I CALLED THE PATIENTS DAUGHTER MERRILL WHO IS THE CONTACT DR. WHITE'S OFFICE HAD DOWN AT [phone] - SHE STATES SHE LIVES IN [facility] AND DOES NOT KNOW HIS MEDICATIONS, HER BROTHER AND SISTER IN LAW PICK THEM UP FOR HIM AND SHE ASKED THAT I CONTACT MARLYN. I CALLED MARLYN AND HE STATES HE IS NOT FAMILIAR WITH THE MEDICATIONS HIS DAD DOES THEM HIMSELF, HE ASKED THAT I CALL HIS THER SISTER LISBET. THE NUMBER WE HAVE ON FILE FOR HER IS NO LONGER IN SERVICE. AT THIS TIME I UPDATED THE MED REC WITH WHAT [facility] HAS FILLED RECENTLY AND REMOVED ANYTHING THAT IS OVER DUE FOR REFILL. PATIENT STATES HE DOES NOT GET SAMPLES OF ANY MEDICATIONS CURRENTLY. [facility] FILLED: 03-19-19 PEPCID 20MG BID #180 03-19-19 LIPITOR 10MG HS #90 03-18-19 ZOLOFT 50MG DAILY #30 03-05-19 BASAGLAR 26AM 24HS MAX 55QD (STATES HE DOES 30 BID USUALLY, SOMETIMES WILL USE MUCH 40 DEPENDING ON HIS BLOOD SUGAR, USES BID ONLY) 01-24-19 NAMENDA 5MG DAILY #60 01-24-19 PLAVIX 75MG DAILY #60 01-24-19 ARICEPT 5MG HS #60 12-23-18 DUONEB Q4H PRN 12-23-18 BUMEX 1MG 3 DAILY #42 (REMOVED SINCE THIS IS PAST DUE AND SHORT THERAPY) 12-23-18 NOVOLOG TID AC (PATIENT STATED HE NO LONGER TAKES THIS, ONLY USES BASAGLAR) OTC MEDS: ASPIRIN 81MG DAILY MTV DAILY Addendum: 04/02/19 at 1028 by CYNTHIA STERLING [facility] MARLYN CALLED ME BACK AT THIS TIME AND STATES HIS MAY KNOW MORE ABOUT MEDS BUT SHE IS AT WORK AND HARD TO GET A HOLD OF DURING THE DAY, HE HAS TRIED BUT NOT BEEN ABLE TO SPEAK TO HER. HE DID GO READ ME THE NAMES OF THE MEDICATION BOTTLES HE SEES - HE LISTED EVERYTHING I PUT ON THE MED REC EXCEPT FOR THE NEBULIZER SOLUTION AND THE MTV. HE ALSO MENTIONED RANITIDINE WHICH I BELIEVE HAS BEEN REPLACED BY FAMOTIDINE AND HE ALSO MENTION NOVOLOG HOWEVER THE PATIENT TOLD ME HE NO LONGER USES THAT. HE STATES THE CORRECT PHONE NUMBER FOR LISBET IS [phone]
--- NOTE | 2019-04-02 11:18 | Physical Therapy Evaluation ---
PT Evaluation-General Medical Diagnosis Admission Date Apr 01, 2019 at 20:50 Medical Diagnosis: UTI / Confusion Onset Date: Apr 01, 2019 Therapy Diagnosis Therapy Diagnosis: Debility/Deconditioning Height/Weight Height (Feet): 5 Height (Inches): 8.00 Weight (Pounds): 348 Weight (Ounces): 3.0 Precautions Precautions/Isolations: Fall Prevention, Standard Precautions Weight Bear Status Right Lower Extremity: Right Weight Bearing/Tolerated Left Lower Extremity: Left Weight Bearing/Tolerated Referral Physician: Alivia Reason for Referral: Evaluation/Treatment Medical History Pertinent Medical History: Arthritis, CAD, DM, GERD, HI, Neuropathy, PVD, Renal Insufficiency Current History Patient to ER with confusion Reviewed History: Yes Social History Home: Single Level Current Living Status: Alone (Per patient report) Entry Into Home: Ramp Prior Prior Level of Function SCALE: Activities may be completed with or without assistive devices. 6-Zqytmtttit-ljthkzt completes the activity by him/herself with no assistance from a helper. 5-Set-up or Clean-up Assistance-helper sets up or cleans up; patient completes activity. [place] assists only prior to or following the activity. 4-Supervision or Touching Assistance-helper provides verbal cues and/or touching/steadying and/or contact guard assistance as patient completes activity. Assistance may be provided throughout the activity or intermittently. 3-Partial/Moderate Assistance-helper does LESS THAN HALF the effort. [place] lifts, holds or supports trunk or limbs, but provides less than half the effort. 2-Substantial/Maximal Assistance-helper does MORE THAN HALF the effort. [place] lifts or holds trunk or limbs and provides more than half the effort. 4-Omzgyemfl-kbirkp does ALL the effort. Patient does none of the effort to complete the activity. Or, the assistance of 2 or more helpers is required for the patient to complete the activity. If activity was not attempted, code reason: 7-Patient Refused. 9-Not Applicable-not attempted and the patient did not perform the activity before the current illness, exacerbation or injury. 10-Not Attempted due to Environmental Limitations-(lack of equipment, weather restraints, etc.). 88-Not Attempted due to Medical Conditions or Safety Concerns. Bed Mobility: 3 Transfers (B,C,W/C): 3 Gait: 3 Indoor Mobility (Ambulation): Needed Some Help Prior Devices Use: Motorized wheelchair, Walker PT Evaluation-Current Subjective Patient is agreeable to therapy but states that his legs are hurting him. Objective Patient Orientation: Confused Attachments: IV ROM/Strength ROM Lower Extremities Limited at bilateral ankles due to bandaging Strength Lower Extremities 3/5 grossly BLE Integumentary/Posture Integumentary See nursing notes. Bowel Incontinence: Yes Bladder Incontinence: Yes Neuromuscular (Tone, Coordination, Reflexes) Grossly intact Sensory Hearing: Functional Sensation Right Lower Extremit: Intact Sensation Left Lower Extremity: Intact Transfers Roll Left to Right (QC): 3 Sit to Lying (QC): 3 Lying to Sitting/Side of Bed(Q: 3 Sit to Stand (QC): 2 Chair/Nub-om-Zuoko Xfer(QC): 1 (Assist x2) Gait Does the Patient Walk?: No and Walking Goal IS indicated Mode of Locomotion: Both Anticipated Mode of Locomotion: Both Wheelchair Training Does the Pt Use a Wheelchair?: Yes Balance Sitting Static: Fair Sitting Dynamic: Fair Standing Static: Fair Standing Dynamic: Fair Assessment/Needs Patient states that he is walking at home but based on leg weakness and inability to transfer and the fact that he has a power wheelchair at home, he most likely ambulates short distances. Patient required assist 2x to get from bed to recliner. Rehab Potential: Fair PT Group Home Goals Manager Supply Goals PT Group Home Goals Time Frame: Apr 09, 2019 Roll Left & Right (QC): 3 Sit to Lying (QC): 3 Lying-Sitting on Side/Bed(QC): 3 Sit to Stand (QC): 3 Chair/Adm-oe-Tblrq Xfer(QC): 3 Does the Pt use WC or Scooter?: Yes Wheel 50 feet with 2 turns (QC: 6 Type: Motorized Wheel 150 feet: 6 Type: Motorized PT Plan Problem List Problem List: Activity Tolerance, Functional Strength, Safety, Balance, Gait, Transfer, Bed Mobility, ROM Treatment/Plan Treatment Plan: Continue Plan of Care Treatment Plan: Bed Mobility, Education, Functional Activity Honorio, Functional Strength, Gait, Safety, Therapeutic Exercise, Transfers Treatment Duration: Apr 09, 2019 Frequency: 6 times per week Estimated Hrs Per Day: .25 hour per day Safety Risks/Education Patient Education: Transfer Techniques Teaching Recipient: Patient Teaching Methods: Discussion Response to Teaching: Reinforcement Needed Time/GCodes Time In: 953 Time Out: 1013 Total Billed Treatment Time: 20 Total Billed Treatment 1 visit EVM (20 minutes) SALEEM YEN PT Apr 02, 2019 11:18
[2019-04-02 12:00] VITALS: BP 142/68
[2019-04-02 16:00] VITALS: BP 107/53
[2019-04-02 19:26] VITALS: BP 107/81
[2019-04-02] MEDS: ZINC OXIDE 16% OINT (BUTT PASTE) 113 GM TUBE TOP PRN (21:27)
[2019-04-02] MEDS: cefTRIAXone 1,000 MG/SWFI 10 ML IV PUSH IV SCH ×2 (21:27)
[2019-04-03 00:10] VITALS: BP 134/72
[2019-04-03] MEDS: NS IV 1000 ML 1,000 ML IV SCH ×4 (02:48→21:21)
[2019-04-03 04:00] VITALS: BP 133/71
[2019-04-03] MEDS: ACETAMINOPHEN 325 MG TABLET PO PRN ×2 (05:49→22:02)
[2019-04-03 06:04] LABS: HEMOGLOBIN 9.9 G/DL (13.3-17.7); MEAN PLATELET VOLUME 11.1 FL (7.4-10.4); RED CELL DISTRIBUTION WIDTH 15.3 % (10.0-14.5); WHITE BLOOD COUNT 6.4 10^3/uL (4.3-11.0)
[2019-04-03 06:31] LABS: ALBUMIN 2.8 GM/DL (3.2-4.5); BILIRUBIN,TOTAL 0.3 MG/DL (0.1-1.0); CALCIUM 8.1 MG/DL (8.5-10.1); CREATININE SERUM 1.39 MG/DL (0.60-1.30); POTASSIUM 4.1 MMOL/L (3.6-5.0); TOTAL PROTEIN 5.5 GM/DL (6.4-8.2)
[2019-04-03] MEDS: inSUlin ASPART (NovoLOG) 1 UNIT/0.01 ML (CHARGE PER UNIT) SC SCH ×4 (06:33→21:21)
[2019-04-03 08:00] VITALS: BP 145/64
--- NOTE | 2019-04-03 08:48 | Progress Note ---
Subjective Time Seen by a Provider: 08:43 Subjective/Events-last exam Patient was confused today. Patient more alert. One blood culture was positive. To check urine tomorrow. Patient in the right direction Focused Exam Lactate Level 04/01/19 19:54: Lactic Acid Level 1.77 Objective Exam Vital Signs Date Time Temp Pulse Resp B/P (MAP) Pulse Ox O2 Delivery O2 Flow Rate FiO2 04/03/19 06:41 68 04/03/19 04:00 36.4 72 20 133/71 (91) 95 Nasal Cannula 2.50 04/03/19 01:00 70 04/03/19 00:10 36.5 76 20 134/72 (92) 100 Nasal Cannula 2.50 04/02/19 20:30 Nasal Cannula 2.50 04/02/19 19:26 35.8 74 18 107/81 (90) 94 Nasal Cannula 2.50 04/02/19 19:00 74 04/02/19 16:00 36.0 71 15 107/53 (71) 93 Nasal Cannula 2.50 04/02/19 13:00 77 04/02/19 12:40 Nasal Cannula 3.00 04/02/19 12:00 36.0 73 18 142/68 (92) 96 Nasal Cannula 2.00 I & O 04/03/19 07:00 Intake Total 2532 ml Output Total 300 ml Balance 2232 ml Capillary Refill : Less Than 3 Seconds General Appearance: No Apparent Distress, WD/WN HEENT: Normal ENT Inspection Neck: Full Range of Motion, Normal Inspection Respiratory: Lungs Clear, No Accessory Muscle Use, No Respiratory Distress Cardiovascular: Regular Rate, Rhythm, No Murmur Gastrointestinal: non tender Results Lab Laboratory Tests 04/03/19 05:35 Laboratory Tests 04/02/19 11:41: Glucometer 306H 04/02/19 15:54: Glucometer 159H 04/02/19 21:06: Glucometer 197H 04/03/19 05:35: White Blood Count 6.4, Red Blood Count 3.83L, Hemoglobin 9.9L, Hematocrit 32L, Mean Corpuscular Volume 83, Mean Corpuscular Hemoglobin 26, Mean Corpuscular Hemoglobin Concent 31L, Red Cell Distribution Width 15.3H, Platelet Count 185, Mean Platelet Volume 11.1H, Sodium Level 134L, Potassium Level 4.1, Chloride Level 102, Carbon Dioxide Level 25, Anion Gap 7, Blood Urea Nitrogen 35H, Creatinine 1.39H, Estimat Glomerular Filtration Rate 50, BUN/Creatinine Ratio 25, Glucose Level 172H, Calcium Level 8.1L, Corrected Calcium 9.1, Total Bilirubin 0.3, Aspartate Amino Transf (AST/SGOT) 34, Alanine Aminotransferase (ALT/SGPT) 13, Alkaline Phosphatase 71, Total Protein 5.5L, Albumin 2.8L 04/03/19 06:03: Glucometer 173H Microbiology 04/01/19 Blood Culture - Preliminary, Resulted No growth 04/01/19 Urine Culture - Preliminary, Resulted Culture In Progress Assessment/Plan Assessment/Plan Assess & Plan/Chief Complaint Confusion. UTI. One blood culture positive. Diabetes. Hypertension. Coronary artery disease. Ulcers on legs Clinical Quality Measures Admission Status Admission Dx Confusion. Diabetes. UTI. Lives alone. Coronary artery disease. Hyperlipidemia. Dementia DVT/VTE Risk/Contraindication: Risk Factor Score Per Nursin RFS Level Per Nursing on Admit: 4+=Very High TAMIKA WHITE DO Apr 03, 2019 08:48
[2019-04-03] MEDS: ENOXAPARIN 40 MG/0.4 ML (LOVENOX) SYR SC SCH ×2 (08:56→21:20)
[2019-04-03 12:00] VITALS: BP 116/72
--- NOTE | 2019-04-03 12:02 | Physical Therapy Daily Note ---
PT Daily Note-Current Subjective Pt up in recliner, agreeable to rx, dinora, makes conversation Pain Location: No Pain Reported Appearance edema LEs Mental Status Patient Orientation: Person, Place, Time, Situation Attachments: Oxygen, IV Transfers SCALE: Activities may be completed with or without assistive devices. 3-Xuhdkkykgq-kemetuc completes the activity by him/herself with no assistance from a helper. 5-Set-up or Clean-up Assistance-helper sets up or cleans up; patient completes activity. [place] assists only prior to or following the activity. 4-Supervision or Touching Assistance-helper provides verbal cues and/or touching/steadying and/or contact guard assistance as patient completes activity. Assistance may be provided throughout the activity or intermittently. 3-Partial/Moderate Assistance-helper does LESS THAN HALF the effort. [place] lifts, holds or supports trunk or limbs, but provides less than half the effort. 2-Substantial/Maximal Assistance-helper does MORE THAN HALF the effort. [place] lifts or holds trunk or limbs and provides more than half the effort. 4-Nbhhycahk-eavyoy does ALL the effort. Patient does none of the effort to complete the activity. Or, the assistance of 2 or more helpers is required for the patient to complete the activity. If activity was not attempted, code reason: 7-Patient Refused. 9-Not Applicable-not attempted and the patient did not perform the activity before the current illness, exacerbation or injury. 10-Not Attempted due to Environmental Limitations-(lack of equipment, weather restraints, etc.). 88-Not Attempted due to Medical Conditions or Safety Concerns. sit to stand x 5 mod to min and instruction for wt shift forward Weight Bearing Right Lower Extremity: Right Weight Bearing/Tolerated Left Lower Extremity: Left Weight Bearing/Tolerated Gait Training Does the Patient Walk?: Yes Gait Assistive Device: FWW 6-7 steps for and back x 2 FWW Min to CGA Exercises Seated Therapy Exercises: Ankle pumps, Sit to stand, Long arc quads, Hip flexion, Hip abd/add Seated Reps: 15 Treatments in recliner after with LEs elevated, kelley at hand O2 insitu Assessment Current Status: Good Progress PT Machine Deburrer Goals Machine Deburrer Goals PT Machine Deburrer Goals Time Frame: Apr 09, 2019 Roll Left & Right (QC): 3 Sit to Lying (QC): 3 Lying-Sitting on Side/Bed(QC): 3 Sit to Stand (QC): 3 Chair/Cnc-nx-Votoh Xfer(QC): 3 Does the Pt use WC or Scooter?: Yes Wheel 50 feet with 2 turns (QC: 6 Type: Motorized Wheel 150 feet: 6 Type: Motorized PT Plan Treatment/Plan Treatment Plan: Continue Plan of Care Treatment Plan: Bed Mobility, Education, Functional Activity Honorio, Functional Strength, Gait, Safety, Therapeutic Exercise, Transfers Treatment Duration: Apr 09, 2019 Frequency: 6 times per week Estimated Hrs Per Day: .25 hour per day Safety Risks/Education Patient Education: Gait Training, Transfer Techniques, Correct Positioning, Disease Process, Safety Issues Teaching Recipient: Patient Teaching Methods: Demonstration, Discussion Response to Teaching: Verbalize Understanding, Return Demonstration, Reinforcement Needed Time/GCodes Time In: 1135 Time Out: 1200 Total Billed Treatment Time: 25 Total Billed Treatment 1,EX10m,FA15m ELOISA HODGSON ROUSTABOUT HEAD Apr 03, 2019 12:02
[2019-04-03 16:00] VITALS: BP 131/77
[2019-04-03 20:00] VITALS: BP 164/79
[2019-04-03] MEDS: cefTRIAXone 1,000 MG/SWFI 10 ML IV PUSH IV SCH ×2 (21:21)
[2019-04-03] MEDS: ZINC OXIDE 16% OINT (BUTT PASTE) 113 GM TUBE TOP PRN (21:23)
[2019-04-03 22:04] LABS: CLARITY,URINE CLEAR; COLOR,URINE YELLOW
[2019-04-03 22:05] LABS: BILIRUBIN,URINE NEGATIVE (NEGATIVE); GLUCOSE, URINE (UA) NEGATIVE (NEGATIVE); KETONES,URINE NEGATIVE (NEGATIVE); LEUKOCYTE ESTERASE ,URINE 2+ (NEGATIVE); NITRITE,URINE NEGATIVE (NEGATIVE); PROTEIN,URINE 1+ (NEGATIVE)
[2019-04-03 22:08] LABS: BACTERIA,URINE TRACE /HPF; RBC,URINE 0-2 /HPF; SQUAMOUS EPITHELIAL CELL,UR RARE /HPF; WBC,URINE >100 /HPF
[2019-04-03 22:09] LABS: YEAST,URINE MODERATE /HPF
--- NOTE | 2019-04-03 22:20 | NUR ---
PT HAS OPEN WOUND TO BILAT UPPER THIGHS. PT IS INCONTINENT AND STATES HE ALWAYS FEEL LIKE HAVING TO URINATE. DR. WHITE INFORMED OF PT STATUS. ORDER TO PLACE DYE CATH AND CHANGE FLUID TO 50ML/HR. DYE PLACED USING ASEPTIC TECHNIQUE. 1000ML OF DARK CLOUDY URINE RETURNED. PT TOLERATED WELL.
[2019-04-04 00:30] VITALS: BP 178/94
[2019-04-04] MEDS ORDERED: FAMOTIDINE 20 MG (PEPCID) TABLET PO ONE (01:30)
--- NOTE | 2019-04-04 01:34 | NUR ---
PT C/O UPPER GASTRIC PAIN. DR. WHITE CALLED. ORDER FOR PEPCID 20MG PO BID.
[2019-04-04 04:30] VITALS: BP 177/80
[2019-04-04] MEDS: inSUlin ASPART (NovoLOG) 1 UNIT/0.01 ML (CHARGE PER UNIT) SC SCH ×4 (05:52→21:49)
[2019-04-04 06:57] LABS: HEMOGLOBIN 11.2 G/DL (13.3-17.7); MEAN PLATELET VOLUME 11.2 FL (7.4-10.4); RED CELL DISTRIBUTION WIDTH 14.9 % (10.0-14.5); WHITE BLOOD COUNT 7.9 10^3/uL (4.3-11.0)
[2019-04-04 07:24] LABS: ALANINE AMINOTRANSFERASE 83 U/L (0-55); ALBUMIN 3.1 GM/DL (3.2-4.5); ALKALINE PHOSPHATASE 154 U/L (40-136); BILIRUBIN,TOTAL 1.1 MG/DL (0.1-1.0); BUN/CREATININE RATIO 23; CALCIUM 8.5 MG/DL (8.5-10.1); CARBON DIOXIDE 21 MMOL/L (21-32); CHLORIDE 101 MMOL/L (98-107); GFR ESTIMATED > 60; GLUCOSE 244 MG/DL (70-105); POTASSIUM 4.2 MMOL/L (3.6-5.0); SODIUM 134 MMOL/L (135-145); TOTAL PROTEIN 6.2 GM/DL (6.4-8.2)
[2019-04-04 08:00] VITALS: BP 144/82
--- NOTE | 2019-04-04 08:26 | Progress Note ---
Subjective Time Seen by a Provider: 08:24 Subjective/Events-last exam Patient feels weak today. Liver enzymes elevated. Patient was confused. Plan to discharge tomorrow Focused Exam Lactate Level 04/01/19 19:54: Lactic Acid Level 1.77 Objective Exam Vital Signs Date Time Temp Pulse Resp B/P (MAP) Pulse Ox O2 Delivery O2 Flow Rate FiO2 04/04/19 07:00 78 04/04/19 04:30 36.5 75 20 177/80 (112) 97 Nasal Cannula 2.50 04/04/19 01:00 83 04/04/19 00:30 36.4 73 16 178/94 (122) 99 Nasal Cannula 2.50 04/03/19 20:00 35.8 66 20 164/79 (107) 99 Nasal Cannula 2.50 04/03/19 20:00 Nasal Cannula 2.00 04/03/19 19:03 81 04/03/19 16:00 35.8 68 20 131/77 (95) 100 Nasal Cannula 2.50 04/03/19 12:43 65 04/03/19 12:00 36.2 67 20 116/72 (87) 99 Nasal Cannula 2.00 04/03/19 09:10 Nasal Cannula 2.00 I & O 04/04/19 07:00 Intake Total 3430 ml Output Total 2050 ml Balance 1380 ml Capillary Refill : NONE General Appearance: No Apparent Distress, WD/WN HEENT: Normal ENT Inspection Neck: Normal Inspection Respiratory: Lungs Clear, No Accessory Muscle Use, No Respiratory Distress Cardiovascular: Regular Rate, Rhythm, No Murmur Gastrointestinal: non tender, soft Extremity: Other (Ulcers of legs) Results Lab Laboratory Tests 04/04/19 05:55 Laboratory Tests 04/03/19 11:18: Glucometer 227H 04/03/19 15:18: Glucometer 244H 04/03/19 16:01: Glucometer 219H 04/03/19 21:13: Glucometer 209H 04/03/19 21:20: Urine Color YELLOW, Urine Clarity CLEAR, Urine pH 6.0, Urine Specific [place] 1.025H, Urine Protein 1+H, Urine Glucose (UA) NEGATIVE, Urine Ketones NEGATIVE, Urine Nitrite NEGATIVE, Urine Bilirubin NEGATIVE, Urine Urobilinogen 0.2, Urine Leukocyte Esterase 2+H, Urine RBC (Auto) 1+H, Urine RBC 0-2, Urine WBC >100H, Urine Squamous Epithelial Cells RARE, Urine Crystals NONE, Urine Bacteria TRACE, Urine Casts NONE, Urine Mucus NEGATIVE, Urine Yeast MODERATEH, Urine Culture Indicated YES 04/04/19 05:33: Glucometer 262H 04/04/19 05:55: White Blood Count 7.9, Red Blood Count 4.30L, Hemoglobin 11.2L, Hematocrit 35L, Mean Corpuscular Volume 81, Mean Corpuscular Hemoglobin 26, Mean Corpuscular Hemoglobin Concent 32, Red Cell Distribution Width 14.9H, Platelet Count 201, Mean Platelet Volume 11.2H, Sodium Level 134L, Potassium Level 4.2, Chloride Level 101, Carbon Dioxide Level 21, Anion Gap 12, Blood Urea Nitrogen 25H, Creatinine 1.10, Estimat Glomerular Filtration Rate > 60, BUN/Creatinine Ratio 23, Glucose Level 244H, Calcium Level 8.5, Corrected Calcium 9.2, Total Bilirubin 1.1H, Aspartate Amino Transf (AST/SGOT) 201H, Alanine Aminotransferase (ALT/SGPT) 83H, Alkaline Phosphatase 154H, Total Protein 6.2L, Albumin 3.1L Microbiology 04/01/19 Blood Culture - Preliminary, Resulted No growth 04/01/19 Urine Culture - Final, Complete YEAST Assessment/Plan Assessment/Plan Assess & Plan/Chief Complaint Confusion. UTI. One blood culture positive. Diabetes. Hypertension. Coronary artery disease. Ulcers on legs. . 04/04/2019. Confusion. UTI. Diabetes. Hypertension. Coronary artery disease. Ulcers on legs. Dementia Clinical Quality Measures Admission Status Admission Dx Confusion. Diabetes. UTI. Lives alone. Coronary artery disease. Hyperlipidemia. Dementia DVT/VTE Risk/Contraindication: Risk Factor Score Per Nursin RFS Level Per Nursing on Admit: 4+=Very High TAMIKA WHITE DO Apr 04, 2019 08:26
[2019-04-04] MEDS ORDERED: MILK OF MAGNESIA 400 MG/5 ML 30 ML UDC PO PRN (08:30)
[2019-04-04] MEDS: SERTRALINE 50 MG (ZOLOFT) TABLET PO SCH (09:02)
[2019-04-04] MEDS: MEMANTINE 5 MG (NAMENDA) TABLET PO SCH (09:02)
[2019-04-04] MEDS: ENOXAPARIN 40 MG/0.4 ML (LOVENOX) SYR SC SCH ×2 (09:03→21:47)
[2019-04-04] MEDS: MULTIVIT W/MINERALS TAB (THERAGRAN M) PO SCH (09:03)
[2019-04-04] MEDS: ASPIRIN E.C. 81 MG (ECOTRIN) TAB PO SCH (09:03)
[2019-04-04] MEDS: CLOPIDOGREL 75 MG (PLAVIX) TABLET PO SCH (09:20)
[2019-04-04] MEDS: FAMOTIDINE 20 MG (PEPCID) TABLET PO SCH ×2 (09:20→21:47)
--- NOTE | 2019-04-04 10:07 | Physical Therapy Daily Note ---
PT Daily Note-Current Subjective Patient in bed pre tx, agrees to PT reluctantly, has 3/10 pain in his legs. Appearance Patient in recliner post tx with nurse call,phone, tray, all needs met. Mental Status Patient Orientation: Person, Confused, Place Attachments: Oxygen, [place] Catheter, IV Transfers SCALE: Activities may be completed with or without assistive devices. 1-Ursorrpqoj-gkomqiu completes the activity by him/herself with no assistance from a helper. 5-Set-up or Clean-up Assistance-helper sets up or cleans up; patient completes activity. [place] assists only prior to or following the activity. 4-Supervision or Touching Assistance-helper provides verbal cues and/or touching/steadying and/or contact guard assistance as patient completes activity. Assistance may be provided throughout the activity or intermittently. 3-Partial/Moderate Assistance-helper does LESS THAN HALF the effort. [place] lifts, holds or supports trunk or limbs, but provides less than half the effort. 2-Substantial/Maximal Assistance-helper does MORE THAN HALF the effort. [place] lifts or holds trunk or limbs and provides more than half the effort. 9-Tmrwulhkq-hpmizz does ALL the effort. Patient does none of the effort to complete the activity. Or, the assistance of 2 or more helpers is required for the patient to complete the activity. If activity was not attempted, code reason: 7-Patient Refused. 9-Not Applicable-not attempted and the patient did not perform the activity before the current illness, exacerbation or injury. 10-Not Attempted due to Environmental Limitations-(lack of equipment, weather restraints, etc.). 88-Not Attempted due to Medical Conditions or Safety Concerns. Roll Left & Right (QC): 6 Lying to Sitting/Side of Bed(Q: 3 Sit to Stand (QC): 3 Chair/Tsf-qr-Trvkw Xfer(QC): 3 Mod assist for supine to sit. Patient was not able to stand from a lower surface even with therapist assist, had to raise bed and then he could stand with min assist. He was able to take a few steps (about 5) to the recliner and sit. Steps were unsteady and required a lot of effort. Patient needs cues for hand placement and positioning. 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 Correction Goals PT Correction Goals Time Frame: Apr 09, 2019 Roll Left & Right (QC): 3 Sit to Lying (QC): 3 Lying-Sitting on Side/Bed(QC): 3 Sit to Stand (QC): 3 Chair/Oms-dk-Iultu Xfer(QC): 3 Does the Pt use WC or Scooter?: Yes Wheel 50 feet with 2 turns (QC: 6 Type: Motorized Wheel 150 feet: 6 Type: Motorized PT Plan Problem List Problem List: Activity Tolerance, Functional Strength, Safety, Balance, Gait, Transfer, Bed Mobility, ROM Treatment/Plan Treatment Plan: Continue Plan of Care Treatment Plan: Bed Mobility, Education, Functional Activity Honorio, Functional Strength, Gait, Safety, Therapeutic Exercise, Transfers Treatment Duration: Apr 09, 2019 Frequency: 6 times per week Estimated Hrs Per Day: .25 hour per day Safety Risks/Education Patient Education: Gait Training, Transfer Techniques, Correct Positioning, Safety Issues Teaching Recipient: Patient Teaching Methods: Demonstration, Discussion Response to Teaching: Reinforcement Needed Time/GCodes Time In: 0950 Time Out: 1002 Total Billed Treatment Time: 12 Total Billed Treatment 1 visit FA PRAVEENA WRIGHT PT Apr 04, 2019 10:07
[2019-04-04 12:00] VITALS: BP 139/84
--- NOTE | 2019-04-04 14:56 | NUR ---
CM/SS: Visited with pt as to plan for discharge Plan: Pt to go to [facility] in [facility] upon discharge Summary Pt's daughter Joellen Cho, , calls this morning and request that pt be able to go to [facility] as he has been there before and she works there, to get his strength up. This worker talks to pt and he would like to go home however understands that he may need to go to [facility] initially to get stronger. He has been there in the past. He is ok with that and gives this worker permission to fax paperwork to the facility. Daughter notified that referral has been made. She reports that the facility can pick him up tomorrow. This worker has requested to have them notify us of machine operator picker time. Facility notified and requested wound care orders, this worker will fax them. Facility will notify as to time of machine operator picker on 04-04-2019. Daughter reports that medicaid application has been completed, so that pt can go to an assisted living in the near future, as he is unable to live at home alone.
[2019-04-04] MEDS: NS IV 1000 ML 1,000 ML IV SCH (15:23)
[2019-04-04 16:00] VITALS: BP 145/79
--- NOTE | 2019-04-04 16:13 | NUR ---
Pastoral care visit.
[2019-04-04 20:00] VITALS: BP 135/73
[2019-04-04] MEDS: cefTRIAXone 1,000 MG/SWFI 10 ML IV PUSH IV SCH ×2 (21:47)
[2019-04-04] MEDS: DONEPEZIL 5 MG (ARICEPT) TAB PO SCH (21:47)
[2019-04-04] MEDS: ZINC OXIDE 16% OINT (BUTT PASTE) 113 GM TUBE TOP PRN (21:50)
[2019-04-05 00:20] VITALS: BP 156/67
[2019-04-05 04:35] VITALS: BP 125/57
[2019-04-05 04:53] LABS: HEMOGLOBIN 10.6 G/DL (13.3-17.7); MEAN PLATELET VOLUME 10.9 FL (7.4-10.4); WHITE BLOOD COUNT 5.1 10^3/uL (4.3-11.0)
[2019-04-05 05:22] LABS: ALANINE AMINOTRANSFERASE 224 U/L (0-55); ALBUMIN 2.8 GM/DL (3.2-4.5); ALKALINE PHOSPHATASE 195 U/L (40-136); BILIRUBIN,TOTAL 2.6 MG/DL (0.1-1.0); BUN/CREATININE RATIO 21; CALCIUM 8.4 MG/DL (8.5-10.1); CARBON DIOXIDE 25 MMOL/L (21-32); CHLORIDE 102 MMOL/L (98-107); CREATININE SERUM 0.92 MG/DL (0.60-1.30); GFR ESTIMATED > 60; GLUCOSE 177 MG/DL (70-105); POTASSIUM 4.1 MMOL/L (3.6-5.0); SODIUM 133 MMOL/L (135-145); TOTAL PROTEIN 5.7 GM/DL (6.4-8.2)
[2019-04-05] MEDS: inSUlin ASPART (NovoLOG) 1 UNIT/0.01 ML (CHARGE PER UNIT) SC SCH ×4 (06:23→21:01)
[2019-04-05 08:00] VITALS: BP 116/76
--- NOTE | 2019-04-05 08:12 | Progress Note ---
Subjective Time Seen by a Provider: 08:09 Subjective/Events-last exam Patient voices no complaints. Patient's bilirubin and liver enzymes elevated today. Gallbladder sonogram ordered. No scar noted on her abdomen by gallbladder Objective Exam Vital Signs Date Time Temp Pulse Resp B/P (MAP) Pulse Ox O2 Delivery O2 Flow Rate FiO2 04/05/19 07:00 72 04/05/19 04:35 36.6 95 18 125/57 (79) 93 Nasal Cannula 2.00 04/05/19 01:00 71 04/05/19 00:20 36.7 77 18 156/67 (96) 94 Nasal Cannula 2.00 04/04/19 20:00 Nasal Cannula 2.00 04/04/19 20:00 36.9 82 20 135/73 (93) 97 Nasal Cannula 2.00 04/04/19 19:00 80 04/04/19 17:09 Room Air 04/04/19 16:00 36.8 76 18 145/79 (101) 97 Room Air 04/04/19 15:19 Nasal Cannula 2.00 04/04/19 12:41 80 04/04/19 12:00 36.4 80 16 139/84 (102) 98 Room Air I & O 04/05/19 07:00 Intake Total 1320 ml Output Total 2150 ml Balance -830 ml Capillary Refill : Less Than 3 SecondsNONE General Appearance: No Apparent Distress, WD/WN HEENT: Normal ENT Inspection Neck: Full Range of Motion Respiratory: No Accessory Muscle Use, No Respiratory Distress Cardiovascular: Regular Rate, Rhythm, No Murmur Gastrointestinal: non tender, soft Results Lab Laboratory Tests 04/05/19 04:40 Laboratory Tests 04/04/19 11:23: Glucometer 250H 04/04/19 16:26: Glucometer 222H 04/04/19 21:46: Glucometer 218H 04/05/19 04:40: White Blood Count 5.1, Red Blood Count 4.15L, Hemoglobin 10.6L, Hematocrit 34L, Mean Corpuscular Volume 81, Mean Corpuscular Hemoglobin 26, Mean Corpuscular Hemoglobin Concent 32, Red Cell Distribution Width 15.0H, Platelet Count 181, Mean Platelet Volume 10.9H, Sodium Level 133L, Potassium Level 4.1, Chloride Level 102, Carbon Dioxide Level 25, Anion Gap 6, Blood Urea Nitrogen 19H, Creatinine 0.92, Estimat Glomerular Filtration Rate > 60, BUN/Creatinine Ratio 21, Glucose Level 177H, Calcium Level 8.4L, Corrected Calcium 9.4, Total Bilirubin 2.6H, Aspartate Amino Transf (AST/SGOT) 337H, Alanine Aminotransferase (ALT/SGPT) 224H, Alkaline Phosphatase 195H, Total Protein 5.7L, Albumin 2.8L Microbiology 04/01/19 Blood Culture - Preliminary, Resulted No growth 04/01/19 Urine Culture - Final, Complete YEAST Assessment/Plan Assessment/Plan Assess & Plan/Chief Complaint Confusion. UTI. One blood culture positive. Diabetes. Hypertension. Coronary artery disease. Ulcers on legs. . 04/04/2019. Confusion. UTI. Diabetes. Hypertension. Coronary artery disease. Ulcers on legs. Dementia area 04/05/2019. No confusion this morning. Yeast in urine. Diabetes. Hypertension. Coronary artery disease. Ulcers on legs. Dementia. Patient's liver tests went up dramatically. Gallbladder sonogram ordered Clinical Quality Measures Admission Status Admission Dx Confusion. Diabetes. UTI. Lives alone. Coronary artery disease. Hyperlipidemia. Dementia DVT/VTE Risk/Contraindication: Risk Factor Score Per Nursin RFS Level Per Nursing on Admit: 4+=Very High TAMIKA WHITE DO Apr 05, 2019 08:11
--- NOTE | 2019-04-05 09:45 | Diagnostic Imaging Report ---
PROCEDURE: US Gallbladder. TECHNIQUE: Multiple real-time grayscale images were obtained over the right upper quadrant in various projections. INDICATION: Elevated liver function tests. FINDINGS: The liver is normal in size at 15 cm. Portal vein is patent and shows normal direction of flow. No discrete mass is identified. Gallbladder evaluation is somewhat limited due to patient body habitus. No definite stones are identified. No definite wall thickening or biliary ductal dilatation is identified. The pancreas is mostly obscured. Aorta is mostly obscured. IVC is patent. Right kidney is without calculi or hydronephrosis. There is no ascites. IMPRESSION: Limited study. No gross abnormality is detected. Dictated by: Dictated on workstation # [id number]
[2019-04-05] MEDS: MULTIVIT W/MINERALS TAB (THERAGRAN M) PO SCH (10:41)
[2019-04-05] MEDS: FAMOTIDINE 20 MG (PEPCID) TABLET PO SCH ×2 (10:41→21:01)
[2019-04-05] MEDS: NS IV 1000 ML 1,000 ML IV SCH (10:41)
[2019-04-05] MEDS: CLOPIDOGREL 75 MG (PLAVIX) TABLET PO SCH (10:41)
[2019-04-05] MEDS: ASPIRIN E.C. 81 MG (ECOTRIN) TAB PO SCH (10:41)
[2019-04-05] MEDS: SERTRALINE 50 MG (ZOLOFT) TABLET PO SCH (10:41)
[2019-04-05] MEDS: MEMANTINE 5 MG (NAMENDA) TABLET PO SCH (10:41)
[2019-04-05] MEDS: ENOXAPARIN 40 MG/0.4 ML (LOVENOX) SYR SC SCH ×2 (10:42→21:00)
--- NOTE | 2019-04-05 11:19 | Physical Therapy Daily Note ---
PT Daily Note-Current Subjective Patient agreeable to therapy at this time and states that he would like to get up and walk because he has not done that in a couple days. Appearance Patient in recliner with call light and bedside table within reach. Mental Status Patient Orientation: Normal For Age Attachments: Oxygen, IV Transfers SCALE: Activities may be completed with or without assistive devices. 5-Uctpljjgio-byetdvg completes the activity by him/herself with no assistance from a helper. 5-Set-up or Clean-up Assistance-helper sets up or cleans up; patient completes activity. [place] assists only prior to or following the activity. 4-Supervision or Touching Assistance-helper provides verbal cues and/or touching/steadying and/or contact guard assistance as patient completes activity. Assistance may be provided throughout the activity or intermittently. 3-Partial/Moderate Assistance-helper does LESS THAN HALF the effort. [place] lifts, holds or supports trunk or limbs, but provides less than half the effort. 2-Substantial/Maximal Assistance-helper does MORE THAN HALF the effort. [place] lifts or holds trunk or limbs and provides more than half the effort. 3-Jzqcbqqwg-gyvhpr does ALL the effort. Patient does none of the effort to com plete the activity. Or, the assistance of 2 or more helpers is required for the patient to complete the activity. If activity was not attempted, code reason: 7-Patient Refused. 9-Not Applicable-not attempted and the patient did not perform the activity before the current illness, exacerbation or injury. 10-Not Attempted due to Environmental Limitations-(lack of equipment, weather restraints, etc.). 88-Not Attempted due to Medical Conditions or Safety Concerns. Sit to Stand (QC): 2 Weight Bearing Right Lower Extremity: Right Weight Bearing/Tolerated Left Lower Extremity: Left Weight Bearing/Tolerated Gait Training Does the Patient Walk?: Yes Distance: 50 Walk 10 feet (QC): 4 Walk 50 ft with 2 Turns(QC): 4 Gait Assistive Device: FWW CGA for safety. Wheelchair Training Does the Pt Use a Wheelchair?: No Exercises Seated Therapy Exercises: Ankle pumps (25BLE), Long arc quads (25BLE), Hip flexion (25BLE) Treatments Ambulation. BLE Exercises. Assessment Once up patient was stable during ambulation. Patient fatigued quickly but was appreciative to be getting up and going walking. Patient remains up in recliner with nursing present and needs met. PT Custodial Goals Slab Worker Goals PT Slab Worker Goals Time Frame: Apr 09, 2019 Roll Left & Right (QC): 3 Sit to Lying (QC): 3 Lying-Sitting on Side/Bed(QC): 3 Sit to Stand (QC): 3 Chair/Dbq-yr-Hbzzv Xfer(QC): 3 Does the Pt use WC or Scooter?: Yes Wheel 50 feet with 2 turns (QC: 6 Type: Motorized Wheel 150 feet: 6 Type: Motorized PT Plan Problem List Problem List: Activity Tolerance, Functional Strength, Safety, Balance, Gait, Transfer, Bed Mobility, ROM Treatment/Plan Treatment Plan: Continue Plan of Care Treatment Plan: Bed Mobility, Education, Functional Activity Honorio, Functional Strength, Gait, Safety, Therapeutic Exercise, Transfers Treatment Duration: Apr 09, 2019 Frequency: 6 times per week Estimated Hrs Per Day: .25 hour per day Safety Risks/Education Patient Education: Gait Training, Transfer Techniques Teaching Recipient: Patient Teaching Methods: Discussion Response to Teaching: Reinforcement Needed Time/GCodes Time In: 1026 Time Out: 1043 Total Billed Treatment Time: 17 Total Billed Treatment 1 visit GT 17 SALEEM YEN PT Apr 05, 2019 11:19
[2019-04-05 12:00] VITALS: BP 119/56
--- NOTE | 2019-04-05 12:35 | NUR ---
PT REFUSED THE 4 UNITS SSI AT NOON -- PT VOICED I'M JUST NOW GETTING TO EAT
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
--- NOTE | 2019-04-05 14:20 | NUR ---
RD ASSESSMENT PMHx: COPD; CAD; chronic edema; RI; HTN; DM; GERD; hypercholesterolemia; PT INTERACTION: Pt was awake and pleasant for nutrition assessment. Note pt has AMS, per chart review. Pt states current appetite is fair, and has been for some time. Note avg PO intake of 78% x3d, per chart review. Pt states following a diabetic diet at home, and that his children do his grocery shopping for him. Pt states no recent issues with n/v at this time. Pt states recent issues with constipation. Note last BM was 04/04 and pt not currently on bowel regimen per chart review. Pt states recent wt loss, but unsure of amount/timeframe, stating it has been a little bit. Note 15# wt loss x3mon, per chart review. Pt states current DM management is "okay", and that his average fasting glucose is between 180-200. ABNORMAL NUTRITION-RELATED LAB VALUES LOW: Na 133; Ca 8.4; Pro 5.7; alb 2.8 HIGH: BUN 19; glu 177; bili 2.6; AST 337; ALT 224; alkphos 195 Est. kcal needs: 2004-0565 kcal | 15-18 kcal/kg Est. Pro needs: 128-154 g Pro | 1.0-1.2 g Pro/kg PES STATEMENT: Given pt's current PO intake, no nutrition diagnosis at this time (NO-1.1) INTERVENTION: Continue with current diet order of CHO 60g/m 1snack diet. Will continue to follow and reassess as pt needs and status change. MONITOR/EVALUATE: PO Intake; Plan of Care; Hydration Status; Weight Status; Lab Values Adrianna Anaya, MS, RD, LD
--- NOTE | 2019-04-05 14:25 | Diagnostic Imaging Report ---
PROCEDURE: CT abdomen without contrast. TECHNIQUE: Multiple contiguous axial images were obtained through the abdomen without the use of intravenous contrast. Auto Exposure Controls were utilized during the CT exam to meet ALARA standards for radiation dose reduction. INDICATION: Elevated liver enzymes. COMPARISON: Comparison is made with prior CT from 07/28/2017. FINDINGS: The lung bases are clear of acute infiltrates. The unopacified liver is without evidence of discrete mass. There appear to be multiple small stones within the gallbladder. No biliary ductal dilatation is identified. The pancreas and spleen are unremarkable. No adrenal mass is detected. Kidneys are unremarkable. There are extensive vascular calcifications throughout the mesentery as well as aorta. Aorta is non-aneurysmal. There is normal caliber of bowel loops. Appendix is unremarkable in the right abdomen. No free fluid or fluid collection is detected. IMPRESSION: 1. Cholelithiasis. 2. No other significant abnormality is identified in the abdomen. Dictated by: Dictated on workstation # [id number]
[2019-04-05 16:00] VITALS: BP 112/70
[2019-04-05 20:00] VITALS: BP 145/72
[2019-04-05] MEDS: cefTRIAXone 1,000 MG/SWFI 10 ML IV PUSH IV SCH ×2 (21:01)
[2019-04-05] MEDS: DONEPEZIL 5 MG (ARICEPT) TAB PO SCH (21:01)
[2019-04-06 00:42] VITALS: BP 122/70
[2019-04-06 04:40] VITALS: BP 123/70
[2019-04-06] MEDS: inSUlin ASPART (NovoLOG) 1 UNIT/0.01 ML (CHARGE PER UNIT) SC SCH ×4 (06:17→20:33)
[2019-04-06 06:26] LABS: HEMOGLOBIN 9.7 G/DL (13.3-17.7); RED CELL DISTRIBUTION WIDTH 14.9 % (10.0-14.5); WHITE BLOOD COUNT 5.5 10^3/uL (4.3-11.0)
[2019-04-06 06:49] LABS: ALANINE AMINOTRANSFERASE 134 U/L (0-55); ALBUMIN 2.6 GM/DL (3.2-4.5); ALKALINE PHOSPHATASE 190 U/L (40-136); BILIRUBIN,TOTAL 0.8 MG/DL (0.1-1.0); BUN/CREATININE RATIO 21; CALCIUM 8.3 MG/DL (8.5-10.1); CARBON DIOXIDE 21 MMOL/L (21-32); CHLORIDE 104 MMOL/L (98-107); CREATININE SERUM 1.07 MG/DL (0.60-1.30); GFR ESTIMATED > 60; GLUCOSE 154 MG/DL (70-105); POTASSIUM 4.2 MMOL/L (3.6-5.0); SODIUM 134 MMOL/L (135-145); TOTAL PROTEIN 5.3 GM/DL (6.4-8.2)
--- NOTE | 2019-04-06 07:37 | NUR ---
[facility] staff.
[2019-04-06] MEDS ORDERED: morphine INJ 4 MG/ML 1 ML (VIAL/SYRINGE) ONE (08:35)
[2019-04-06] MEDS ORDERED: morphine INJ 10 MG/ML 1ML (SYR OR VIAL) IVP STA (08:36)
[2019-04-06] MEDS ORDERED: morphine INJ 4 MG/ML 1 ML (VIAL/SYRINGE) IVP ONE (09:00)
--- NOTE | 2019-04-06 09:56 | Diagnostic Imaging Report ---
INDICATION: Abdominal pain. Patient was administered 5.3 mCi technetium 99m Choletec intravenously and imaging over the abdomen was performed. Patient was also given 2.0 mg of morphine sulfate 1 hour into the exam. There is some adjacent thickening of activity throughout the liver. There is excretion of activity to the common duct with passage into the small bowel. No definite activity is seen within the gallbladder, suspicious for cholecystitis. IMPRESSION: 1. Patent common bile duct. 2. Nonvisualized gallbladder, suspicious for acute cholecystitis. Dictated by: Dictated on workstation # [id number]
[2019-04-06 10:30] VITALS: BP 128/73
[2019-04-06] MEDS: MEMANTINE 5 MG (NAMENDA) TABLET PO SCH (10:34)
[2019-04-06] MEDS: MULTIVIT W/MINERALS TAB (THERAGRAN M) PO SCH (10:34)
[2019-04-06] MEDS: FAMOTIDINE 20 MG (PEPCID) TABLET PO SCH ×2 (10:34→20:27)
[2019-04-06] MEDS: SERTRALINE 50 MG (ZOLOFT) TABLET PO SCH (10:34)
[2019-04-06] MEDS: ENOXAPARIN 40 MG/0.4 ML (LOVENOX) SYR SC SCH ×2 (10:37→20:27)
--- NOTE | 2019-04-06 11:11 | Physical Therapy Daily Note ---
PT Daily Note-Current Subjective Patient in bed pre tx, agrees to PT reluctantly, has no complaints of pain. Appearance Patient in recliner post tx with nurse call, phone, tray, legs elevated and on pillow. Mental Status Patient Orientation: Person, Place, Situation Attachments: Oxygen, [place] Catheter Transfers SCALE: Activities may be completed with or without assistive devices. 5-Hobbgeaffq-mvsxzov completes the activity by him/herself with no assistance from a helper. 5-Set-up or Clean-up Assistance-helper sets up or cleans up; patient completes activity. [place] assists only prior to or following the activity. 4-Supervision or Touching Assistance-helper provides verbal cues and/or touching/steadying and/or contact guard assistance as patient completes activity. Assistance may be provided throughout the activity or intermittently. 3-Partial/Moderate Assistance-helper does LESS THAN HALF the effort. [place] lifts, holds or supports trunk or limbs, but provides less than half the effort. 2-Substantial/Maximal Assistance-helper does MORE THAN HALF the effort. [place] lifts or holds trunk or limbs and provides more than half the effort. 1-Sznewgrth-njhgwg does ALL the effort. Patient does none of the effort to complete the activity. Or, the assistance of 2 or more helpers is required for the patient to complete the activity. If activity was not attempted, code reason: 7-Patient Refused. 9-Not Applicable-not attempted and the patient did not perform the activity before the current illness, exacerbation or injury. 10-Not Attempted due to Environmental Limitations-(lack of equipment, weather restraints, etc.). 88-Not Attempted due to Medical Conditions or Safety Concerns. Roll Left & Right (QC): 3 Lying to Sitting/Side of Bed(Q: 3 Sit to Stand (QC): 3 Chair/Lix-vq-Espyo Xfer(QC): 4 Weight Bearing Right Lower Extremity: Right Weight Bearing/Tolerated Left Lower Extremity: Left Weight Bearing/Tolerated Gait Training Distance: 100' Walk 10 feet (QC): 4 Walk 50 ft with 2 Turns(QC): 4 Gait Persons Needed: 1 Gait Assistive Device: FWW Slow ambulation, SOB, cues for purse lip breathing Treatments ambulation Assessment Current Status: Fair Progress improved ambulation but very SOB PT Design Transferrer Goals Design Transferrer Goals PT Senior Living Goals Time Frame: Apr 09, 2019 Roll Left & Right (QC): 3 Sit to Lying (QC): 3 Lying-Sitting on Side/Bed(QC): 3 Sit to Stand (QC): 3 Chair/Bug-ab-Tcjjc Xfer(QC): 3 Does the Pt use WC or Scooter?: Yes Wheel 50 feet with 2 turns (QC: 6 Type: Motorized Wheel 150 feet: 6 Type: Motorized PT Plan Problem List Problem List: Activity Tolerance, Functional Strength, Safety, Balance, Gait, Transfer, Bed Mobility, ROM Treatment/Plan Treatment Plan: Continue Plan of Care Treatment Plan: Bed Mobility, Education, Functional Activity Honorio, Functional Strength, Gait, Safety, Therapeutic Exercise, Transfers Treatment Duration: Apr 09, 2019 Frequency: 6 times per week Estimated Hrs Per Day: .25 hour per day Safety Risks/Education Patient Education: Gait Training, Transfer Techniques, Correct Positioning, Safety Issues Teaching Recipient: Patient Teaching Methods: Demonstration, Discussion Response to Teaching: Reinforcement Needed Time/GCodes Time In: 1055 Time Out: 1106 Total Billed Treatment Time: 11 Total Billed Treatment 1 visit GT 11PRAVEENA MCCLENDON PT Apr 06, 2019 11:11
[2019-04-06 12:00] VITALS: BP 108/68
--- NOTE | 2019-04-06 14:14 | Progress Note - Hospitalist ---
Subjective HPI/CC On Admission Date Seen by Provider: Apr 06, 2019 Time Seen by Provider: 14:09 Subjective/Events-last exam Pt reports feeling well. No complaints at this time. No abdominal pain. Objective Exam Vital Signs Vital Signs Date Time Temp Pulse Resp B/P (MAP) Pulse Ox O2 Delivery O2 Flow Rate FiO2 04/06/19 13:00 76 04/06/19 12:00 36.4 18 108/68 (81) 96 Nasal Cannula 2.00 Capillary Refill : Less Than 3 SecondsNONE General Appearance: No Apparent Distress, Chronically ill, Obese Respiratory: Lungs Clear, No Respiratory Distress Cardiovascular: Regular Rate, Rhythm, No Murmur Gastrointestinal: Normal Bowel Sounds, Non Tender, Soft; No Distended, No Guarding, No Rebound, No Tenderness Neurologic/Psychiatric: Alert, Other (oriented to person and place) Results/Procedures Lab Laboratory Tests 04/06/19 06:10 Patient resulted labs reviewed. Assessment/Plan Assessment and Plan Assess & Plan/Chief Complaint UTI- Continue Rocephin Elevated liver enzymes- HIDA concerning for acute cholecystitis, but recent cardiac stents placed on 12/28/18 CAD- Discussed with Dr Kamara, will consult, will resume DAPT given hwo recent stents were done Diabetes- continue current regimen Dementia- oriented to place and self- unsure of baseline Clinical Quality Measures DVT/VTE Risk/Contraindication: Risk Factor Score Per Nursin RFS Level Per Nursing on Admit: 4+=Very High GEOVANNY JUSITCE MD Apr 06, 2019 14:13
--- NOTE | 2019-04-06 14:34 | Progress Note - Surgery ---
Subjective Date Seen by a Provider: Apr 06, 2019 Time Seen by a Provider: 10:26 Subjective/Events-last exam Patient feeling well. No abdominal pain. Liver enzymes improving. Denies any complaints at this time. Denies n/v fever sweats chills shortness of breath or chest pain. On ceftriaxone. Hida suspicious for cholecystitis Objective Exam Vital Signs Date Time Temp Pulse Resp B/P (MAP) Pulse Ox O2 Delivery O2 Flow Rate FiO2 04/06/19 13:00 76 04/06/19 12:00 36.4 67 18 108/68 (81) 96 Nasal Cannula 2.00 04/06/19 10:30 36.4 76 18 128/73 (91) 93 Nasal Cannula 2.00 04/06/19 08:00 Room Air 04/06/19 08:00 Room Air 04/06/19 07:00 72 04/06/19 04:40 36.9 70 18 123/70 (87) 93 Room Air 04/06/19 01:00 79 04/06/19 00:42 36.9 71 18 122/70 (87) 95 Room Air 04/05/19 20:50 Nasal Cannula 2.00 04/05/19 20:00 36.3 70 20 145/72 (96) 93 Room Air 04/05/19 19:00 73 04/05/19 16:00 36.6 71 20 112/70 (84) 97 Nasal Cannula 2.00 04/05/19 14:56 Nasal Cannula 2.00 I & O 04/06/19 07:00 Intake Total 2950 ml Output Total 1750 ml Balance 1200 ml Capillary Refill : Less Than 3 SecondsNONE General Appearance: No Apparent Distress, Chronically ill, Obese HEENT: Normal ENT Inspection Neck: Full Range of Motion Respiratory: Chest Non Tender, No Accessory Muscle Use, No Respiratory Distress Cardiovascular: Regular Rate, Rhythm, No Murmur Peripheral Pulses: 2+ Dorsalis Pedis (R), 2+ Left Dors-Pedis (L), 2+ Radial Pulses (R), 2+ Radial Pulses (L) Gastrointestinal: non tender, soft, no organomegaly; No tenderness Extremity: Other (Ulcers of legs) Neurologic/Psychiatric: Alert, Other (oriented to person and place seems to have some confusion at times) Skin: Normal Color, Warm/Dry Lymphatic: No Adenopathy Results Lab Laboratory Tests 04/05/19 16:12: Glucometer 234H 04/05/19 20:42: Glucometer 213H 04/06/19 05:42: Glucometer 154H 04/06/19 06:10: White Blood Count 5.5, Red Blood Count 3.68L, Hemoglobin 9.7L, Hematocrit 30L, Mean Corpuscular Volume 82, Mean Corpuscular Hemoglobin 26, Mean Corpuscular Hemoglobin Concent 32, Red Cell Distribution Width 14.9H, Platelet Count 176, Mean Platelet Volume 11.0H, Sodium Level 134L, Potassium Level 4.2, Chloride Level 104, Carbon Dioxide Level 21, Anion Gap 9, Blood Urea Nitrogen 22H, Creatinine 1.07, Estimat Glomerular Filtration Rate > 60, BUN/Creatinine Ratio 21, Glucose Level 154H, Calcium Level 8.3L, Corrected Calcium 9.4, Total Bilirubin 0.8, Aspartate Amino Transf (AST/SGOT) 135H, Alanine Aminotransferase (ALT/SGPT) 134H, Alkaline Phosphatase 190H, Total Protein 5.3L, Albumin 2.6L 04/06/19 11:09: Glucometer 144H Microbiology 04/03/19 Urine Culture - Final, Complete YEAST Mixed Bacterial Azul 04/01/19 Blood Culture - Preliminary, Resulted No growth Assessment/Plan Assessment/Plan Assessment/Plan elevated liver enzymes UTI- Yeast in urine. Diabetes. Hypertension. Coronary artery disease. Ulcers on legs. Dementia. patient with u/s poor visualization of gallbladder but does not appear to have any acute pathology. Ct scan done demonstrating cholelithiasis but no other pathology. there is no dilatation of ducts by ct. HIDA scan suspicious for cholecystitis. Liver enzymes improving and patient without pain. He had stents in December 2018. Discussed with Dr. Ospina, and we feel currently safest to observe, if worsening best option would be cholecystostomy tube at this time if he worsens. Follow labs, continue abx, clear liquid diet today. Clinical Quality Measures DVT/VTE Risk/Contraindication: Risk Factor Score Per Nursin RFS Level Per Nursing on Admit: 4+=Very High MINNIE JEFFRIES DO Apr 06, 2019 14:34
[2019-04-06 16:26] VITALS: BP 103/48
[2019-04-06 20:06] VITALS: BP 115/53
[2019-04-06] MEDS: DONEPEZIL 5 MG (ARICEPT) TAB PO SCH (20:27)
[2019-04-06] MEDS: cefTRIAXone 1,000 MG/SWFI 10 ML IV PUSH IV SCH ×2 (21:39)
[2019-04-07] VITALS (7 sets, daily range): BP systolic 108–143; BP diastolic 65–78
[2019-04-07] MEDS: inSUlin ASPART (NovoLOG) 1 UNIT/0.01 ML (CHARGE PER UNIT) SC SCH ×4 (05:54→21:46)
[2019-04-07 06:05] LABS: RED CELL DISTRIBUTION WIDTH 15.3 % (10.0-14.5)
[2019-04-07 06:29] LABS: ALANINE AMINOTRANSFERASE 94 U/L (0-55); ALBUMIN 2.7 GM/DL (3.2-4.5); ALKALINE PHOSPHATASE 189 U/L (40-136); BILIRUBIN,TOTAL 0.5 MG/DL (0.1-1.0); BUN/CREATININE RATIO 20; CALCIUM 8.4 MG/DL (8.5-10.1); CARBON DIOXIDE 24 MMOL/L (21-32); CHLORIDE 103 MMOL/L (98-107); CREATININE SERUM 1.06 MG/DL (0.60-1.30); GFR ESTIMATED > 60; GLUCOSE 152 MG/DL (70-105); POTASSIUM 4.2 MMOL/L (3.6-5.0); SODIUM 135 MMOL/L (135-145); TOTAL PROTEIN 5.5 GM/DL (6.4-8.2)
--- NOTE | 2019-04-07 10:04 | Progress Note - Surgery ---
[facility] 04/07/19 1004: Subjective Date Seen by a Provider: Apr 07, 2019 Time Seen by a Provider: 09:55 Subjective/Events-last exam Pt lying in bed. Very somnolent. Slips in and out of sleep as I ask him questions. Denies any abd pain, N/V, diarrhea, and chest pain. Reports having BMs. Review of Systems General: No Chills, No Night Sweats HEENT: No Head Aches, No Visual Changes Pulmonary: No Dyspnea, No Cough Cardiovascular: No: Chest Pain, Palpitations, Edema Gastrointestinal: No: Nausea, Vomiting, Abdominal Pain Objective Exam Vital Signs Date Time Temp Pulse Resp B/P (MAP) Pulse Ox O2 Delivery O2 Flow Rate FiO2 04/07/19 08:00 36.4 65 20 143/71 (95) 99 Nasal Cannula 2.00 04/07/19 07:00 64 04/07/19 04:13 36.4 67 18 128/68 (88) 97 Nasal Cannula 2.00 04/07/19 01:00 69 04/07/19 00:10 36.6 65 18 128/76 (93) 95 Nasal Cannula 2.00 04/06/19 20:30 Room Air 04/06/19 20:06 36.5 69 20 115/53 (73) 96 Room Air 04/06/19 19:00 68 04/06/19 16:26 36.5 70 18 103/48 (66) 93 Room Air 04/06/19 13:00 76 04/06/19 12:00 36.4 67 18 108/68 (81) 96 Nasal Cannula 2.00 04/06/19 10:30 36.4 76 18 128/73 (91) 93 Nasal Cannula 2.00 I & O 04/07/19 07:00 Intake Total 2050 ml Output Total 800 ml Balance 1250 ml Capillary Refill : Less Than 3 SecondsNONE General Appearance: No Apparent Distress, Chronically ill, Obese HEENT: Normal ENT Inspection Neck: Full Range of Motion Respiratory: Chest Non Tender, No Accessory Muscle Use, No Respiratory Distress Cardiovascular: Regular Rate, Rhythm, No Murmur Peripheral Pulses: 2+ Dorsalis Pedis (R), 2+ Left Dors-Pedis (L), 2+ Radial Pulses (R), 2+ Radial Pulses (L) Gastrointestinal: non tender, soft, no organomegaly; No tenderness Extremity: Other (Ulcers of legs) Neurologic/Psychiatric: Alert, Oriented x3, Other (oriented to person and place seems to have some confusion at times) Skin: Normal Color, Warm/Dry Lymphatic: No Adenopathy Results Lab Laboratory Tests 04/06/19 11:09: Glucometer 144H 04/06/19 16:32: Glucometer 238H 04/06/19 20:32: Glucometer 178H 04/07/19 05:20: Glucometer 138H 04/07/19 05:43: White Blood Count 5.0, Red Blood Count 3.85L, Hemoglobin 10.0L, Hematocrit 32L, Mean Corpuscular Volume 83, Mean Corpuscular Hemoglobin 26, Mean Corpuscular Hemoglobin Concent 31L, Red Cell Distribution Width 15.3H, Platelet Count 205, Mean Platelet Volume 11.0H, Sodium Level 135, Potassium Level 4.2, Chloride Level 103, Carbon Dioxide Level 24, Anion Gap 8, Blood Urea Nitrogen 21H, Creatinine 1.06, Estimat Glomerular Filtration Rate > 60, BUN/Creatinine Ratio 20, Glucose Level 152H, Calcium Level 8.4L, Corrected Calcium 9.4, Total Bilirubin 0.5, Aspartate Amino Transf (AST/SGOT) 71H, Alanine Aminotransferase (ALT/SGPT) 94H, Alkaline Phosphatase 189H, Total Protein 5.5L, Albumin 2.7L Microbiology 04/03/19 Urine Culture - Final, Complete YEAST Mixed Bacterial Azul 04/01/19 Blood Culture - Preliminary, Resulted No growth Assessment/Plan Assessment/Plan Assessment/Plan 1) Questionable Cholecystitis- Gallbladder not visualized on HIDA scan but shows patent common bile duct. Pt remains asymptomatic. Liver Enzymes Consistently trending down, though Alk-phos improving at a slower rate; Will continue to ob serve pt at this time, Repeat labs tomorrow. If condition worsens best option would be cholecystostomy tube at this time. Hospitalist on board with plan. Continue abx, clear liquid diet today. 2)UTI-Cultures grew yeast, currently only on Ceftriaxone 3)Insulin dependent DMII-Managed by primary care team 4)HTN-Controlled, Managed by primary care team 5)CAD-on dual antiplatelet therapy, Hx of Stent in 12/28/2018, Cardiology on board and does not recommend stopping anticoagulation at this time if surgery is not emergent as pt is at high risk for cardiovascular events 6)Ulcers on lower extremities 7)Dementia Clinical Quality Measures DVT/VTE Risk/Contraindication: Risk Factor Score Per Nursin RFS Level Per Nursing on Admit: 4+=Very High MINNIE CHAPARRO DO 04/07/19 1427: Subjective Subjective/Events-last exam Patient sitting in chair. No abdominal pain. Tolerating clears. Liver enzymes trending down. No new complaints. Denies n/v fever sweats chills shortness of breath or chest pain. Objective Exam General Appearance: No Apparent Distress, Chronically ill, Obese HEENT: PERRL/EOMI, Normal ENT Inspection Neck: Full Range of Motion, Non Tender Respiratory: Chest Non Tender, No Accessory Muscle Use, No Respiratory Distress Cardiovascular: Regular Rate, Rhythm Gastrointestinal: non tender (even with deep palpation), soft, no organomegaly; No tenderness Neurologic/Psychiatric: Alert, Oriented x3, Other (oriented to person and place seems to have some confusion at times) Skin: Normal Color, Warm/Dry, Other (lower extremity ulcers wrapped) Lymphatic: No Adenopathy Assessment/Plan Assessment/Plan Assessment/Plan elevated liver enzymes cholelithiasis CAD with recent stent on dual antiplatelet liver enzymes trending down, no adominal pain he's high risk for surgical intervention and needs to stay on antiplatelet. HIDA suggestive of cholecystitis but is asymptomatic, with high risk continue to monitor and if changes with symptoms cholecystectomy or cholecystostomy tube Supervisory-Addendum Brief Verification & Attestation Participated in pt care: history, MDM, physical Personally performed: exam, history, MDM, supervision of care Care discussed with: Medical Student Procedures: n/a Results interpretation: Verified all documentation Verification and Attestation of Medical Student E/M Service A medical student performed and documented this service in my presence. I re viewed and verified all information documented by the medical student and made modifications to such information, when appropriate. I personally performed the physical exam and medical decision making. Minnie Chaparro, Apr 07, 2019,14:27 [facility] Apr 07, 2019 10:04 MINNIE CHAPARRO DO Apr 07, 2019 14:27
[2019-04-07] MEDS: ENOXAPARIN 40 MG/0.4 ML (LOVENOX) SYR SC SCH ×2 (10:14→19:49)
[2019-04-07] MEDS: ASPIRIN E.C. 81 MG (ECOTRIN) TAB PO SCH (10:14)
[2019-04-07] MEDS: SERTRALINE 50 MG (ZOLOFT) TABLET PO SCH (10:15)
[2019-04-07] MEDS: FAMOTIDINE 20 MG (PEPCID) TABLET PO SCH ×2 (10:15→19:49)
[2019-04-07] MEDS: MULTIVIT W/MINERALS TAB (THERAGRAN M) PO SCH (10:15)
[2019-04-07] MEDS: CLOPIDOGREL 75 MG (PLAVIX) TABLET PO SCH (10:15)
[2019-04-07] MEDS: MEMANTINE 5 MG (NAMENDA) TABLET PO SCH (10:16)
--- NOTE | 2019-04-07 10:17 | NUR ---
gave plavix this AM per doctor orders
--- NOTE | 2019-04-07 10:37 | Consultation-Cardiology ---
HPI-Cardiology Cardiology Consultation Date of Consultation 04/07/19 Date of Admission Time Seen by Provider: 09:00 Indication: Coronary artery disease HPI 74 years old gentleman with extensive cardiac history, hypertension hyperlipidemia, admitted with change in mental status, confusion, has been treated for UTI and there was a suspicion of cholecystitis. I was called for cardiac evaluation and possible MAC of holding oral anticoagulation and antiplatelet medications. He denied any active pain, denied any chest pain, no palpitation, no syncope, still complaining generalized fatigue and loss of energy Home Medications & Allergies Allergies: Coded Allergies: PING Inhibitors (Verified Allergy, Mild, 05/16/15) UNCONTROLLED COUGHING amoxicillin (Verified Allergy, Mild, itching (PT HAS RECEIVED CEFEPIME & ANCEF IN THE PAST), 11/25/15) Home Medication List Reviewed: Yes SAM-[id number] Hx Patient Social History Marital Status: Employed/Student: retired Alcohol Use: Denies Use Recreational Drug Use: No Smoking Status: Never a Smoker 2nd Hand Smoke Exposure: No Recent Foreign Travel: No Recent Infectious Disease Expo: No Recent Hopitalizations: No Immunizations Up To Date Tetanus Booster (TDap): Less than 5yrs Past Medical History Discussed below Family Medical History Significant Family History: No Pertinent Family Hx Family History: Family history: Arthritis 19 FATHER 19 MOTHER Headache 19 FATHER 19 MOTHER Hearing loss 19 MOTHER History of - anemia 19 MOTHER Stroke 19 FATHER No Family History of: AIDS Abdominal aortic aneurysm Abdominal aortic aneurysm [place]'s disease [place]'s disease Alcoholism Alzheimer's disease Aphasia Cancer Cancer of colon Cataract Chest pain Congenital heart disease Congestive heart failure Cystic fibrosis Dementia Dysphagia Family history: Allergy Family history: Alzheimer's disease Family history: Asthma Family history: Breast disease Family history: Cardiovascular disease Family history: Coronary thrombosis Family history: Diabetes mellitus Family history: Gastrointestinal disease Family history: Glaucoma Family history: Hypertension Family history: Osteoporosis Family history: Thyroid disorder Heart disease Hereditary disease History of - disorder History of - respiratory disease History of drug abuse Human immunodeficiency virus (HIV) seropositivity Hypercholesterolemia Infertile Kidney disease Malignant neoplasm of lung Myocardial infarction Parkinson's disease Prostate cancer Psychotic disorder Seizure disorder Thyroid disease Tuberculosis Tuberculosis Visual impairment Review of Systems-General Review of Systems Constitutional: see HPI; No dizziness, No fever; weakness EENTM: see HPI, hearing loss; No blurred vision, No double vision Respiratory: see HPI; No cough; dyspnea on exertion; No hemoptysis, No orthopnea; phlegm, short of breath; No stridor, No wheezing, No other Cardiovascular: see HPI; No chest pain, No edema, No Hx of Intervention, No palpitations, No syncope, No vascular heart diseas, No other Gastrointestinal: see HPI; No abdominal pain, No nausea, No vomiting Genitourinary: see HPI; No hematuria; incontinence Musculoskeletal: see HPI; No back pain; muscle weakness Skin: see HPI, lesions (Healing ulcers on bilateral lower extremity) Psychiatric/Neurological: See HPI; Denies Headache; Other (Confusion) Reviewed Test Results Reviewed Test Results Lab Laboratory Tests Test 04/06/19 11:09 04/06/19 16:32 04/06/19 20:32 04/07/19 05:20 Range/Units Glucometer 144 H 238 H 178 H 138 H 70-110 MG/DL Test 04/07/19 05:43 Range/Units White Blood Count 5.0 4.3-11.0 10^3/uL Red Blood Count 3.85 L 4.35-5.85 10^6/uL Hemoglobin 10.0 L 13.3-17.7 G/DL Hematocrit 32 L 40-54 % Mean Corpuscular Volume 83 80-99 FL Mean Corpuscular Hemoglobin 26 25-34 PG Mean Corpuscular Hemoglobin Concent 31 L 32-36 G/DL Red Cell Distribution Width 15.3 H 10.0-14.5 % Platelet Count 205 130-400 10^3/uL Mean Platelet Volume 11.0 H 7.4-10.4 FL Sodium Level 135 135-145 MMOL/L Potassium Level 4.2 3.6-5.0 MMOL/L Chloride Level 103 98-107 MMOL/L Carbon Dioxide Level 24 21-32 MMOL/L Anion Gap 8 5-14 MMOL/L Blood Urea Nitrogen 21 H 7-18 MG/DL Creatinine 1.06 0.60-1.30 MG/DL Estimat Glomerular Filtration Rate > 60 BUN/Creatinine Ratio 20 Glucose Level 152 H 70-105 MG/DL Calcium Level 8.4 L 8.5-10.1 MG/DL Corrected Calcium 9.4 8.5-10.1 MG/DL Total Bilirubin 0.5 0.1-1.0 MG/DL Aspartate Amino Transf (AST/SGOT) 71 H 5-34 U/L Alanine Aminotransferase (ALT/SGPT) 94 H 0-55 U/L Alkaline Phosphatase 189 H 40-136 U/L Total Protein 5.5 L 6.4-8.2 GM/DL Albumin 2.7 L 3.2-4.5 GM/DL Physical Exam Physical Exam Vital Signs Vital Signs - First Documented 04/01/19 04/01/19 19:50 23:00 Temp 35.7 Pulse 80 Resp 17 B/P (MAP) 127/79 (95) Pulse Ox 97 O2 Delivery Nasal Cannula O2 Flow Rate 2.00 Capillary Refill : Less Than 3 SecondsNONE Height, Weight, BMI Height: 5'8.00" Weight: 348lbs. 3.0oz. 157.319762dr; 41.79 BMI Method:Stated General Appearance: No Apparent Distress, Chronically ill, Obese Eyes: Bilateral Eye Normal Inspection HEENT: Normal ENT Inspection Neck: Full Range of Motion Respiratory: Chest Non Tender, No Accessory Muscle Use, No Respiratory Distress Cardiovascular: Regular Rate, Rhythm, No Murmur Gastrointestinal: Normal Bowel Sounds, Non Tender, Soft; No Distended, No Guarding, No Rebound, No Tenderness Back: Normal Inspection, No CVA Tenderness, No Vertebral Tenderness Extremity: Other (Ulcers of legs) Neurologic/Psychiatric: Alert, Oriented x3, Other (oriented to person and place seems to have some confusion at times) Skin: Normal Color, Warm/Dry Lymphatic: No Adenopathy A/P-Cardiology Admission Diagnosis Coronary artery disease Hypertension Hyperlipidemia Sinus node dysfunction Assessment/Plan Change in mental status, urinary tract infection, receiving antibiotics Possible cholecystitis, may require cholecystectomy in the near future. Seen by Dr. Chaparro Coronary artery disease, history of a stent done in June 2006 using ultra 4.518 mm bare-metal stent to the LAD, another stent done in December 2009 using Promus 3.012 mm distal right coronary artery. Coronary angiogram done in July 2016 showed patent stent in the coronary system with [id number] disease, occlusion of a small branch of the circumflex artery which is very small artery getting filled by collaterals, underwent cardiac catheterization on December 28, 2018 with severe in-stent restenosis in the LAD underwent stent deployment using Radha 3 x 15 expanded to 3.2 mm overlapping with old stent. Had moderate to severe disease at the distal LAD which is very small artery. Patient will need to be on dual antiplatelet therapy for 6 months, minimum of 3 months. BLE wounds, recent cellulitis-patient had CTA of abdominal aorta with runoff suggestive of stenosis at the right anterior tibial artery. Peripheral angiogram showed [id number] disease, slow flow due to small vessel disease. It appears that he has venous stasis ulceration bilaterally. Last angiogram was done in July 2016. NICK's done Dec 2017. Following with wound care in [place]. Syncope/near syncopal episode, severe weakness due to severe bradycardia, improved after discontinuing atenolol and amiodarone. Continue to monitor. Sick sinus syndrome/sinus pause with escape junctional rhythm with heart rate in the 30s, underlying sinus node dysfunction is present probably exacerbated by atenolol and amiodarone which was stopped. Heart rate improved. Questionable paroxysmal atrial flutter, Holter monitor was done in November 2016 and showed sinus rhythm with 6 beats nonsustained ventricular tachycardia with occasional atrial and ventricular premature contractions. Has been asymptomatic. Continue to monitor [id number] score of 4, yearly risk of stroke without oral anticoagulation is 4.2 percent, currently not on oral anticoagulation, not having any atrial fibrillation. Continue to monitor Hypertension-controlled. Continue to monitor blood pressure/heart rate. Hyperlipidemia,continue to monitor. Carotid stenosis, status post carotid endarterectomy done by Dr. Pineda in July 2014, most recent carotid duplex February 2018 showing moderate disease on the right, mild disease on the left. Continue to monitor. 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 Gastroesophageal reflux disease. Clinical Quality Measures DVT/VTE Risk/Contraindication: Risk Factor Score Per Nursin RFS Level Per Nursing on Admit: 4+=Very High CAROL MARTINEZ MD Apr 07, 2019 10:37
--- NOTE | 2019-04-07 13:47 | Progress Note - Hospitalist ---
Subjective HPI/CC On Admission Date Seen by Provider: Apr 07, 2019 Time Seen by Provider: 13:43 Subjective/Events-last exam Pt reports feeling well. Denies any abdomen pain even with deep palpation. No complaints today. Still on oxygen. Objective Exam Vital Signs Vital Signs Date Time Temp Pulse Resp B/P (MAP) Pulse Ox O2 Delivery O2 Flow Rate FiO2 04/07/19 12:00 36.4 65 20 131/78 (95) 99 Nasal Cannula 2.00 Capillary Refill : Less Than 3 SecondsNONE General Appearance: No Apparent Distress, Chronically ill, Obese Respiratory: Lungs Clear, No Respiratory Distress Cardiovascular: Regular Rate, Rhythm, No Murmur Gastrointestinal: Normal Bowel Sounds, Non Tender, Soft; No Distended, No Guarding, No Rebound Results/Procedures Lab Laboratory Tests 04/07/19 05:43 Patient resulted labs reviewed. Assessment/Plan Assessment and Plan Assess & Plan/Chief Complaint UTI- Continue Rocephin, add Diflucan for yeast Elevated liver enzymes, improving- HIDA concerning for acute cholecystitis, but recent cardiac stents placed on 12/28/18, denies any abdominal pain- may be for transient stone High risk surgical candidates given stents, no pain and no evidence of infection on labs or vitals, will trend CAD- Discussed with Dr Kamara, will consult, will resume DAPT given two recent st ents were done Diabetes- continue current regimen Dementia- oriented to place and self- unsure of baseline Clinical Quality Measures DVT/VTE Risk/Contraindication: Risk Factor Score Per Nursin RFS Level Per Nursing on Admit: 4+=Very High GEOVANNY JUSTICE MD Apr 07, 2019 13:47
[2019-04-07] MEDS: fluCOnazole (DIFLUCAN) 100 MG TAB PO SCH (15:22)
--- NOTE | 2019-04-07 17:24 | NUR ---
advanced patient to a Dysphagia 2 diet per doctor order
[2019-04-07] MEDS: DONEPEZIL 5 MG (ARICEPT) TAB PO SCH (19:49)
[2019-04-08] VITALS: BP 139/65
[2019-04-08 04:00] VITALS: BP 131/61
[2019-04-08] MEDS: inSUlin ASPART (NovoLOG) 1 UNIT/0.01 ML (CHARGE PER UNIT) SC SCH ×4 (06:20→21:16)
[2019-04-08 07:29] VITALS: BP 141/82
[2019-04-08] MEDS: ENOXAPARIN 40 MG/0.4 ML (LOVENOX) SYR SC SCH ×2 (08:28→21:16)
[2019-04-08] MEDS: CLOPIDOGREL 75 MG (PLAVIX) TABLET PO SCH (08:28)
[2019-04-08] MEDS: FAMOTIDINE 20 MG (PEPCID) TABLET PO SCH ×2 (08:28→21:17)
[2019-04-08] MEDS: SERTRALINE 50 MG (ZOLOFT) TABLET PO SCH (08:28)
[2019-04-08] MEDS: ASPIRIN E.C. 81 MG (ECOTRIN) TAB PO SCH (08:28)
[2019-04-08] MEDS: fluCOnazole (DIFLUCAN) 100 MG TAB PO SCH (08:28)
[2019-04-08] MEDS: MEMANTINE 5 MG (NAMENDA) TABLET PO SCH (08:28)
[2019-04-08] MEDS: MULTIVIT W/MINERALS TAB (THERAGRAN M) PO SCH (08:28)
--- NOTE | 2019-04-08 08:37 | Progress Note ---
Subjective Time Seen by a Provider: 08:35 Subjective/Events-last exam Patient feeling better today. Muñoz sign negative. Patient not having any abdominal pain in the right upper quadrant or anywhere in abdomen. Liver enzymes coming down Objective Exam Vital Signs Date Time Temp Pulse Resp B/P (MAP) Pulse Ox O2 Delivery O2 Flow Rate FiO2 04/08/19 07:29 37.3 65 16 141/82 (101) 96 Room Air 04/08/19 07:00 70 04/08/19 04:00 36.5 69 14 131/61 (84) 96 Nasal Cannula 2.00 04/08/19 01:00 68 04/08/19 00:00 36.2 69 16 139/65 (89) 92 Nasal Cannula 2.00 04/07/19 19:50 Room Air 04/07/19 19:00 36.6 65 14 110/65 (80) 96 NIV Bilevel 2.00 04/07/19 19:00 70 04/07/19 17:01 36.6 64 15 108/65 (79) 98 Nasal Cannula 2.00 04/07/19 15:59 36.6 64 15 108/65 (79) 98 Nasal Cannula 2.00 04/07/19 13:00 69 04/07/19 12:00 36.4 65 20 131/78 (95) 99 Nasal Cannula 2.00 I & O 04/08/19 06:59 Intake Total 2238 ml Output Total 1725 ml Balance 513 ml Capillary Refill : Less Than 3 SecondsNONE General Appearance: No Apparent Distress HEENT: Normal ENT Inspection Neck: Full Range of Motion Respiratory: Chest Non Tender, No Accessory Muscle Use, No Respiratory Distress Cardiovascular: Regular Rate, Rhythm, No Murmur Gastrointestinal: non tender, soft Results Lab Laboratory Tests 04/07/19 10:59: Glucometer 246H 04/07/19 16:03: Glucometer 160H 04/07/19 21:14: Glucometer 235H 04/08/19 05:21: Glucometer 189H Microbiology 04/03/19 Urine Culture - Final, Complete YEAST Mixed Bacterial Azul 04/01/19 Blood Culture - Final, Complete No growth Assessment/Plan Assessment/Plan Assess & Plan/Chief Complaint Confusion. UTI. One blood culture positive. Diabetes. Hypertension. Coronary artery disease. Ulcers on legs. . 04/04/2019. Confusion. UTI. Diabetes. Hypertension. Coronary artery disease. Ulcers on legs. Dementia area 04/05/2019. No confusion this morning. Yeast in urine. Diabetes. Hypertension. Coronary artery disease. Ulcers on legs. Dementia. Patient's liver tests went up dramatically. Gallbladder sonogram ordered. . 04/08/2019. Acute cholecystitis. Liver enzymes decreasing. Patient feeling better no abdominal pain. Yeast in urine. Diabetes. Hypertension. Coronary artery disease. Ulcer on legs. Dementia. Clinical Quality Measures Admission Status Admission Dx Confusion. Diabetes. UTI. Lives alone. Coronary artery disease. Hyperlipidemia. Dementia DVT/VTE Risk/Contraindication: Risk Factor Score Per Nursin RFS Level Per Nursing on Admit: 4+=Very High TAMIKA WHITE DO Apr 08, 2019 08:37
--- NOTE | 2019-04-08 09:38 | Cardiology Progress Note ---
Subjective Date Seen by Provider: Apr 08, 2019 Time Seen by Provider: 09:35 Subjective/Events-last exam Patient sitting up in bed, denies any chest pain or dyspnea. Denies abdominal pain. Objective-Cardiology Exam Last Set of Vital Signs Vital Signs 04/08/19 04/08/19 04:00 07:29 Temp 37.3 Pulse 65 Resp 16 B/P (MAP) 141/82 (101) Pulse Ox 96 O2 Delivery Room Air O2 Flow Rate 2.00 Capillary Refill : Less Than 3 SecondsNONE I&O Intake and Output 04/08/19 00:00 Intake Total 1888 ml Output Total 800 ml Balance 1088 ml Intake Oral 1888 ml Output Urine Total 800 ml # Voids 1 # Bowel Movements 3 General: Alert, Oriented X3, Cooperative HEENT: Atraumatic, PERRLA Neck: Supple, No JVD, No Thyromegaly Lungs: Clear to Auscultation, Normal Air Movement Heart: Regular Rate, Normal S1, Normal S2, No Murmurs Abdomen: Normal Bowel Sounds Extremities: Other (BLE with C/D/I dressing, legs are wrapped) Skin: No Rashes Neuro: Normal Speech, Cranial Nerves 3-12 NL Psych/Mental Status: Mood NL A/P-Cardiology Admission Diagnosis Coronary artery disease Hypertension Hyperlipidemia Sinus node dysfunction Assessment/Plan Change in mental status,likely secondary to UTI,improved urinary tract infection, received antibiotics, management per hospitalist Possible cholecystitis, may require cholecystectomy in the near future. Seen by Dr. Chaparro Coronary artery disease, history of a stent done in June 2006 using ultra 4.518 mm bare-metal stent to the LAD, another stent done in December 2009 using Promus 3.012 mm distal right coronary artery. Coronary angiogram done in July 2016 showed patent stent in the coronary system with ucba-wd-cjolymcq disease, occlusion of a small branch of the circumflex artery which is very small artery getting filled by collaterals, underwent cardiac catheterization on December 28, 2018 with severe in-stent restenosis in the LAD underwent stent deployment using Radha 3 x 15 expanded to 3.2 mm overlapping with old stent. Had moderate to severe disease at the distal LAD which is very small artery. Patient will need to be on dual antiplatelet therapy for 6 months, minimum of 3 months. BLE wounds, recent cellulitis-patient had CTA of abdominal aorta with runoff suggestive of stenosis at the right anterior tibial artery. Peripheral angiogram showed ncwv-sw-izgokect disease, slow flow due to small vessel disease. It appears that he has venous stasis ulceration bilaterally. Last angiogram was done in July 2016. NICK's done Dec 2017. Following with wound care in [place]. Syncope/near syncopal episode, severe weakness due to severe bradycardia, improved after discontinuing atenolol and amiodarone. Continue to monitor. Sick sinus syndrome/sinus pause with escape junctional rhythm with heart rate in the 30s, underlying sinus node dysfunction is present probably exacerbated by atenolol and amiodarone which was stopped. Heart rate improved. Questionable paroxysmal atrial flutter, Holter monitor was done in November 2016 and showed sinus rhythm with 6 beats nonsustained ventricular tachycardia with occasional atrial and ventricular premature contractions. Has been asymptomatic. Continue to monitor [id number] score of 4, yearly risk of stroke without oral anticoagulation is 4.2 percent, currently not on oral anticoagulation, not having any atrial fibrillation. Continue to monitor Hypertension-controlled. Continue to monitor blood pressure/heart rate. Hyperlipidemia,continue to monitor. Carotid stenosis, status post carotid endarterectomy done by Dr. Pineda in July 2014, most recent carotid duplex February 2018 showing moderate disease on the right, mild disease on the left. Continue to monitor. 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 Gastroesophageal reflux disease. Clinical Quality Measures DVT/VTE Risk/Contraindication: Risk Factor Score Per Nursin RFS Level Per Nursing on Admit: 4+=Very High ANGELA SOLIS Apr 08, 2019 09:38
--- NOTE | 2019-04-08 10:25 | Cardiology Progress Note ---
Subjective Date Seen by Provider: Apr 08, 2019 Time Seen by Provider: 10:24 Subjective/Events-last exam Patient is laying down", feeling better. No new complaint Review of Systems General: No Chills, No Night Sweats, No Fatigue, No Malaise, No Appetite, No Other HEENT: No Head Aches, No Visual Changes, No Eye Pain, No Ear Pain, No Dysphasia, No Sinus Congestion, No Post Nasal Drip, No Sore Throat, No Other Pulmonary: No Dyspnea, No Cough, No Pleuritic Chest Pain, No Other Cardiovascular: No: Chest Pain, Palpitations, Orthopnea, Paroxysmal Noc. Dyspnea, Edema, Lt Headedness, Other Objective-Cardiology Exam Last Set of Vital Signs Vital Signs 04/08/19 04/08/19 04/08/19 04:00 07:29 08:00 Temp 37.3 Pulse 65 Resp 16 B/P (MAP) 141/82 (101) Pulse Ox 96 O2 Delivery Room Air O2 Flow Rate 2.00 Capillary Refill : Less Than 3 SecondsNONE I&O Intake and Output 04/08/19 00:00 Intake Total 1888 ml Output Total 800 ml Balance 1088 ml Intake Oral 1888 ml Output Urine Total 800 ml # Voids 1 # Bowel Movements 3 General: Alert, Oriented X3, Cooperative HEENT: Atraumatic, PERRLA Neck: Supple, No JVD, No Thyromegaly Lungs: Clear to Auscultation, Normal Air Movement Heart: Regular Rate, Normal S1, Normal S2, No Murmurs Abdomen: Normal Bowel Sounds Extremities: No Clubbing, Other (BLE with C/D/I dressing, legs are wrapped) Skin: No Rashes Neuro: Normal Speech, Cranial Nerves 3-12 NL Psych/Mental Status: Mood NL Results Lab Laboratory Tests Test 04/07/19 10:59 04/07/19 16:03 04/07/19 21:14 04/08/19 05:21 Range/Units Glucometer 246 H 160 H 235 H 189 H 70-110 MG/DL A/P-Cardiology Admission Diagnosis Coronary artery disease Hypertension Hyperlipidemia Sinus node dysfunction Assessment/Plan Change in mental status,likely secondary to UTI, improved Urinary tract infection, received antibiotics, management per hospitalist Possible cholecystitis, may require cholecystectomy in the near future. Seen by Dr. Chaparro Coronary artery disease, history of a stent done in June 2006 using ultra 4.518 mm bare-metal stent to the LAD, another stent done in December 2009 using Promus 3.012 mm distal right coronary artery. Coronary angiogram done in July 2016 showed patent stent in the coronary system with ussf-ta-qbqvswnc disease, occlusion of a small branch of the circumflex artery which is very small artery getting filled by collaterals, underwent cardiac catheterization on December 28, 2018 with severe in-stent restenosis in the LAD underwent stent deployment using Radha 3 x 15 expanded to 3.2 mm overlapping with old stent. Had moderate to severe disease at the distal LAD which is very small artery. Patient will need to be on dual antiplatelet therapy for 6 months, minimum of 3 months. BLE wounds, recent cellulitis-patient had CTA of abdominal aorta with runoff suggestive of stenosis at the right anterior tibial artery. Peripheral angiogram showed bdmb-al-tqdnbdto disease, slow flow due to small vessel disease. It appears that he has venous stasis ulceration bilaterally. Last angiogram was done in July 2016. NICK's done Dec 2017. Following with wound care in [place]. Syncope/near syncopal episode, severe weakness due to severe bradycardia, improved after discontinuing atenolol and amiodarone. Continue to monitor. Sick sinus syndrome/sinus pause with escape junctional rhythm with heart rate in the 30s, underlying sinus node dysfunction is present probably exacerbated by atenolol and amiodarone which was stopped. Heart rate improved. Questionable paroxysmal atrial flutter, Holter monitor was done in November 2016 and showed sinus rhythm with 6 beats nonsustained ventricular tachycardia with occasional atrial and ventricular premature contractions. Has been asymptomatic. Continue to monitor [id number] score of 4, yearly risk of stroke without oral anticoagulation is 4.2 percent, currently not on oral anticoagulation, not having any atrial fibrillation. Continue to monitor Hypertension-controlled. Continue to monitor blood pressure/heart rate. Hyperlipidemia,continue to monitor. Carotid stenosis, status post carotid endarterectomy done by Dr. Pineda in July 2014, most recent carotid duplex February 2018 showing moderate disease on the right, mild disease on the left. Continue to monitor. 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 Gastroesophageal reflux disease. Clinical Quality Measures DVT/VTE Risk/Contraindication: Risk Factor Score Per Nursin RFS Level Per Nursing on Admit: 4+=Very High CAROL MARTINEZ MD Apr 08, 2019 10:25
--- NOTE | 2019-04-08 10:54 | Progress Note - Surgery ---
TIEN GARCIA [facility] 04/08/19 1054: Subjective Date Seen by a Provider: Apr 08, 2019 Time Seen by a Provider: 09:10 Subjective/Events-last exam Feeling well this AM. Denies any symptoms at this time including abd pain, N/V/D, constipation, CP, or SOB. Has been having BMs and passing gas. No labs were drawn yet at the time of eval; will look at liver enzymes once labs have been drawn. Review of Systems General: No Chills, No Night Sweats HEENT: No Head Aches, No Visual Changes Pulmonary: No Dyspnea, No Cough Cardiovascular: No: Chest Pain, Palpitations Gastrointestinal: No: Nausea, Vomiting, Abdominal Pain, Diarrhea, Constipation Objective Exam Vital Signs Date Time Temp Pulse Resp B/P (MAP) Pulse Ox O2 Delivery O2 Flow Rate FiO2 04/08/19 08:00 Room Air 04/08/19 07:29 37.3 65 16 141/82 (101) 96 Room Air 04/08/19 07:00 70 04/08/19 04:00 36.5 69 14 131/61 (84) 96 Nasal Cannula 2.00 04/08/19 01:00 68 04/08/19 00:00 36.2 69 16 139/65 (89) 92 Nasal Cannula 2.00 04/07/19 19:50 Room Air 04/07/19 19:00 36.6 65 14 110/65 (80) 96 NIV Bilevel 2.00 04/07/19 19:00 70 04/07/19 17:01 36.6 64 15 108/65 (79) 98 Nasal Cannula 2.00 04/07/19 15:59 36.6 64 15 108/65 (79) 98 Nasal Cannula 2.00 04/07/19 13:00 69 04/07/19 12:00 36.4 65 20 131/78 (95) 99 Nasal Cannula 2.00 I & O 04/08/19 07:00 Intake Total 2238 ml Output Total 1725 ml Balance 513 ml Capillary Refill : Less Than 3 SecondsNONE General Appearance: No Apparent Distress HEENT: Normal ENT Inspection Neck: Full Range of Motion Respiratory: Chest Non Tender, No Accessory Muscle Use, No Respiratory Distress Cardiovascular: Regular Rate, Rhythm, No Murmur Peripheral Pulses: 2+ Dorsalis Pedis (R), 2+ Left Dors-Pedis (L), 2+ Radial Pulses (R), 2+ Radial Pulses (L) Gastrointestinal: non tender, soft Extremity: Other (Ulcers of legs) Neurologic/Psychiatric: Alert, Oriented x3, Other (oriented to person and place seems to have some confusion at times) Skin: Normal Color, Warm/Dry, Other (lower extremity ulcers wrapped) Lymphatic: No Adenopathy Results Lab Laboratory Tests 04/07/19 10:59: Glucometer 246H 04/07/19 16:03: Glucometer 160H 04/07/19 21:14: Glucometer 235H 04/08/19 05:21: Glucometer 189H Microbiology 04/03/19 Urine Culture - Final, Complete YEAST Mixed Bacterial Azul 04/01/19 Blood Culture - Final, Complete No growth Assessment/Plan Assessment/Plan Assessment/Plan 1) Questionable Cholecystitis- Gallbladder not visualized on HIDA scan but shows patent common bile duct. Pt remains asymptomatic. Liver enzymes pending, will check trend once results are in. With high risk for surgical intervention, continue to monitor and if changes with symptoms cholecystectomy or cholecystostomy tube 2)UTI-Cultures grew yeast, was started on fluconazole, Managed by primary care team 3)Insulin dependent DMII-Managed by primary care team 4)HTN-Controlled, Managed by primary care team 5)CAD-on dual antiplatelet therapy, Hx of Stent in 12/28/2018, Cardiology on board and does not recommend stopping anticoagulation at this time if surgery is not emergent as pt is at high risk for cardiovascular events 6)Ulcers on lower extremities 7)Dementia Clinical Quality Measures DVT/VTE Risk/Contraindication: Risk Factor Score Per Nursin RFS Level Per Nursing on Admit: 4+=Very High MINNIE CHAPARRO DO 04/08/191911: Subjective Subjective/Events-last exam Patient sitting in chair. No complaints of abdominal pain. tolerating diet. Jaciel n/v fever sweats chills shortness of breath or chest pain. Objective Exam General Appearance: No Apparent Distress, Obese HEENT: PERRL/EOMI, Normal ENT Inspection Neck: Full Range of Motion Respiratory: Chest Non Tender, No Accessory Muscle Use, No Respiratory Distress Cardiovascular: Regular Rate, Rhythm Gastrointestinal: non tender, soft; No guarding, No rebound, No tenderness Extremity: Other (Ulcers of legs) Neurologic/Psychiatric: Alert, Oriented x3, Other (oriented to person and place seems to have some confusion at times) Skin: Normal Color, Warm/Dry, Other (lower extremity ulcers wrapped) Lymphatic: No Adenopathy Assessment/Plan Assessment/Plan Assessment/Plan elevated liver enzymes cholelithiasis CAD with recent stent on dual antiplatelet possible cholecystitis patient with no abdominal pain and liver enzymes have been decreasing. plan on conservative change, if have to stop antiplatelet for surgery would be high risk as long enzymes continue to trend down feel he will not need surgical intervention in short term. follow labs and symptoms. Supervisory-Addendum Brief Verification & Attestation Participated in pt care: history, MDM, physical Personally performed: exam, history, MDM, supervision of care Care discussed with: Medical Student Procedures: n/a Results interpretation: Verified all documentation Verification and Attestation of Medical Student E/M Service A medical student performed and documented this service in my presence. I reviewed and verified all information documented by the medical student and made modifications to such information, when appropriate. I personally performed the physical exam and medical decision making. Minnie Chaparro, Apr 08, 2019,19:12 TIEN GARCIA MED STUD Apr 08, 2019 10:54 MINNIE CHAPARRO DO Apr 08, 2019 19:12
--- NOTE | 2019-04-08 11:16 | Physical Therapy Daily Note ---
PT Daily Note-Current Subjective Patient was resistant to therapy but with persistence eventually agreed. Appearance Patient in recliner with call light and bedside table within reach. Mental Status Patient Orientation: Normal For Age Transfers SCALE: Activities may be completed with or without assistive devices. 9-Hoszwwergr-vahsdcp completes the activity by him/herself with no assistance from a helper. 5-Set-up or Clean-up Assistance-helper sets up or cleans up; patient completes activity. Norman assists only prior to or following the activity. 4-Supervision or Touching Assistance-helper provides verbal cues and/or touching/steadying and/or contact guard assistance as patient completes activity. Assistance may be provided throughout the activity or intermittently. 3-Partial/Moderate Assistance-helper does LESS THAN HALF the effort. Norman lifts, holds or supports trunk or limbs, but provides less than half the effort. 2-Substantial/Maximal Assistance-helper does MORE THAN HALF the effort. Norman lifts or holds trunk or limbs and provides more than half the effort. 5-Uuvkzucre-xaayqa does ALL the effort. Patient does none of the effort to complete the activity. Or, the assistance of 2 or more helpers is required for the patient to complete the activity. If activity was not attempted, code reason: 7-Patient Refused. 9-Not Applicable-not attempted and the patient did not perform the activity before the current illness, exacerbation or injury. 10-Not Attempted due to Environmental Limitations-(lack of equipment, weather restraints, etc.). 88-Not Attempted due to Medical Conditions or Safety Concerns. Roll Left & Right (QC): 2 Lying to Sitting/Side of Bed(Q: 2 Sit to Stand (QC): 4 Chair/Bxr-uv-Vwpwo Xfer(QC): 4 Patient was limiting what he would do with bed mobility and acting as if he need ed more help than he actually needed. Weight Bearing Right Lower Extremity: Right Weight Bearing/Tolerated Left Lower Extremity: Left Weight Bearing/Tolerated Gait Training Does the Patient Walk?: Yes Distance: 150' Walk 10 feet (QC): 4 Walk 50 ft with 2 Turns(QC): 4 Walk 150 ft (QC): 4 Gait Persons Needed: 1 Gait Assistive Device: FWW CGA for safety. Treatments Transfers. Ambulation. Assessment Patient did not want to get out of bed at this time but when told that he could either walk now or tomorrow he agreed to walk now. Patient was limiting what he was willing to do today. Once up patient was steady during ambulation. PT District Administrative Assistant Goals District Administrative Assistant Goals PT Usp Goals Time Frame: Apr 20, 2019 Roll Left & Right (QC): 3 Sit to Lying (QC): 3 Lying-Sitting on Side/Bed(QC): 3 Sit to Stand (QC): 3 Chair/Lob-bj-Kszhs Xfer(QC): 3 Does the Pt use WC or Scooter?: Yes Wheel 50 feet with 2 turns (QC: 6 Type: Motorized Wheel 150 feet: 6 Type: Motorized PT Plan Problem List Problem List: Activity Tolerance, Functional Strength, Safety, Balance, Gait, Transfer, Bed Mobility, ROM Treatment/Plan Treatment Plan: Continue Plan of Care Treatment Plan: Bed Mobility, Education, Functional Activity Honorio, Functional Strength, Gait, Safety, Therapeutic Exercise, Transfers Treatment Duration: Apr 20, 2019 Frequency: 6 times per week Estimated Hrs Per Day: .25 hour per day Safety Risks/Education Patient Education: Gait Training, Transfer Techniques Teaching Recipient: Patient Teaching Methods: Discussion Response to Teaching: Reinforcement Needed Time/GCodes Time In: 1020 Time Out: 1034 Total Billed Treatment Time: 14 Total Billed Treatment 1 visit GT 14 SALEEM YEN PT Apr 08, 2019 11:16
[2019-04-08 12:16] VITALS: BP 124/76
--- NOTE | 2019-04-08 14:43 | NUR ---
CM/SS: Follow up to determine if pt will be discharged to skilled facility today Plan: Pt to go to skilled facility at [facility] when appropriate Summary: Pt will have labs in the morning and determine if he is able to be discharged to [facility]. Facility notified that pt will not discharge today, possibly tomorrow. They are ok with that.
[2019-04-08 16:00] VITALS: BP 109/70
[2019-04-08 20:00] VITALS: BP 134/80
[2019-04-08] MEDS: DONEPEZIL 5 MG (ARICEPT) TAB PO SCH (21:17)
[2019-04-09] VITALS: BP 144/65
[2019-04-09 04:00] VITALS: BP 139/61
[2019-04-09 06:04] LABS: HEMOGLOBIN 9.5 G/DL (13.3-17.7); MEAN PLATELET VOLUME 11.1 FL (7.4-10.4); RED CELL DISTRIBUTION WIDTH 15.3 % (10.0-14.5); WHITE BLOOD COUNT 5.6 10^3/uL (4.3-11.0)
[2019-04-09 06:16] LABS: ALANINE AMINOTRANSFERASE 53 U/L (0-55); ALBUMIN 2.7 GM/DL (3.2-4.5); ALKALINE PHOSPHATASE 164 U/L (40-136); BILIRUBIN,TOTAL 0.4 MG/DL (0.1-1.0); BUN/CREATININE RATIO 16; CALCIUM 8.5 MG/DL (8.5-10.1); CARBON DIOXIDE 24 MMOL/L (21-32); CHLORIDE 103 MMOL/L (98-107); CREATININE SERUM 1.07 MG/DL (0.60-1.30); GFR ESTIMATED > 60; GLUCOSE 187 MG/DL (70-105); SODIUM 135 MMOL/L (135-145); TOTAL PROTEIN 5.3 GM/DL (6.4-8.2)
[2019-04-09] MEDS: inSUlin ASPART (NovoLOG) 1 UNIT/0.01 ML (CHARGE PER UNIT) SC SCH ×2 (06:40→12:16)
[2019-04-09 08:00] VITALS: BP 143/71
--- NOTE | 2019-04-09 08:23 | Progress Note ---
Subjective Time Seen by a Provider: 08:19 Subjective/Events-last exam Patient feeling better today. Liver enzymes within normal limits. bilirubin decreased to normal. Objective Exam Vital Signs Date Time Temp Pulse Resp B/P (MAP) Pulse Ox O2 Delivery O2 Flow Rate FiO2 04/09/19 04:00 36.2 78 18 139/61 (87) 92 Room Air 04/09/19 00:00 36.6 64 20 144/65 (91) 95 Room Air 04/08/19 20:15 Room Air 04/08/19 20:00 36.2 64 16 134/80 (98) 94 Room Air 04/08/19 16:00 36.6 67 16 109/70 (83) 94 Room Air 04/08/19 12:48 70 04/08/19 12:16 36.6 65 16 124/76 (92) 95 Room Air I & O 04/09/19 07:00 Intake Total 2152 ml Output Total 1600 ml Balance 552 ml Capillary Refill : Less Than 3 SecondsNONE General Appearance: No Apparent Distress, WD/WN HEENT: Normal ENT Inspection Neck: Full Range of Motion, Normal Inspection Respiratory: Lungs Clear, No Accessory Muscle Use, No Respiratory Distress Cardiovascular: Regular Rate, Rhythm Gastrointestinal: non tender, soft Results Lab Laboratory Tests 04/09/19 05:33 Laboratory Tests 04/08/19 11:29: Glucometer 331H 04/08/19 16:15: Glucometer 174H 04/08/19 20:36: Glucometer 251H 04/09/19 05:33: White Blood Count 5.6, Red Blood Count 3.71L, Hemoglobin 9.5L, Hematocrit 31L, Mean Corpuscular Volume 83, Mean Corpuscular Hemoglobin 26, Mean Corpuscular Hemoglobin Concent 31L, Red Cell Distribution Width 15.3H, Platelet Count 208, Mean Platelet Volume 11.1H, Sodium Level 135, Potassium Level 4.0, Chloride Level 103, Carbon Dioxide Level 24, Anion Gap 8, Blood Urea Nitrogen 17, Creatinine 1.07, Estimat Glomerular Filtration Rate > 60, BUN/Creatinine Ratio 16, Glucose Level 187H, Calcium Level 8.5, Corrected Calcium 9.5, Total Bilirubin 0.4, Aspartate Amino Transf (AST/SGOT) 31, Alanine Aminotransferase (ALT/SGPT) 53, Alkaline Phosphatase 164H, Total Protein 5.3L, Albumin 2.7L 04/09/19 06:11: Glucometer 162H Microbiology 04/03/19 Urine Culture - Final, Complete YEAST Mixed Bacterial Azul 04/01/19 Blood Culture - Final, Complete No growth Assessment/Plan Assessment/Plan Assess & Plan/Chief Complaint Confusion. UTI. One blood culture positive. Diabetes. Hypertension. Coronary artery disease. Ulcers on legs. . 04/04/2019. Confusion. UTI. Diabetes. Hypertension. Coronary artery disease. Ulcers on legs. Dementia area 04/05/2019. No confusion this morning. Yeast in urine. Diabetes. Hypertension. Coronary artery disease. Ulcers on legs. Dementia. Patient's liver tests went up dramatically. Gallbladder sonogram ordered. . 04/08/2019. Acute cholecystitis. Liver enzymes decreasing. Patient feeling better no abdominal pain. Yeast in urine. Diabetes. Hypertension. Coronary artery disease. Ulcer on legs. Dementia.. . 04/09/2019. Cholecystitis better. Liver enzymes normal. Bilirubin normal. yeast in urine. Diabetes. Dementia. Hypertension. Coronary artery disease. Ulcers on legs Clinical Quality Measures Admission Status Admission Dx Confusion. Diabetes. UTI. Lives alone. Coronary artery disease. Hyperlipidemia. Dementia DVT/VTE Risk/Contraindication: Risk Factor Score Per Nursin RFS Level Per Nursing on Admit: 4+=Very High TAMIKA WHITE DO Apr 09, 2019 08:22
--- NOTE | 2019-04-09 08:29 | D/C HH Face to Face Order ---
D/C Face to Face Orders Reconcile Patient Problems Problems Reviewed?: Yes Instructions for Patient Via Madeline Qriket, Patient Instructions/FollowUp: Nursing for follow-up. Patient has dementia. Patient patient's taking his medicines correctly. Needs help with physical therapy Physician to follow Patient: y Discharge Diet for Home: ADA Diet Patient Data-Allergies,Ht & Wt Patient Allergies: Coded Allergies: PING Inhibitors (Verified Allergy, Mild, 05/16/15) UNCONTROLLED COUGHING amoxicillin (Verified Allergy, Mild, itching (PT HAS RECEIVED CEFEPIME & ANCEF IN THE PAST), 11/25/15) Height (Feet): 5 Height (Inches): 8.00 Weight (Pounds): 348 Weight (Ounces): 3.0 Home Health Need/Face to Face Date of Face to Face: Apr 09, 2019 Clinical Findings: Generalized weakness and fatigue, Non-healing wound I have seen Pt rxfp-fk-fflv: Yes Discharged To: Home Diagnosis/Conditions: Dementia. CAD. Diabetes. Leg ulcers Patient is Homebound due to: CognItive deficits Homebound Status Due to the above stated illness, injury or surgical procedure (medical con dition or diagnosis) and associated clinical findings, the patient is homebound because of his/her inability to leave home except with aid of a supportive device and/or person AND leaving the home requires a considerable and taxing effort or is medically contraindicated. Pt req the following assistanc: Aid of another person, Walker Home Health Nursing Orders Home Health Services Order: Nursing Services, Physical Therapy-Evaluate & Treat Home Health Infusion Therapy Line Start Date: Apr 01, 2019 Therapy Orders Therapy Orders: PT to assess for OT Certify Stmt I certify that this patient is under my care and that I, a nurse practitioner or a physician; a health assistant working with me, had a face to face encounter that - meets the physician face to face encounter requirements with this patient as dated. TAMIKA WHITE DO Apr 09, 2019 08:29
--- NOTE | 2019-04-09 08:41 | Progress Note - Surgery ---
[facility] 04/09/19 0841: Subjective Date Seen by a Provider: Apr 09, 2019 Time Seen by a Provider: 08:00 Subjective/Events-last exam Eating breakfast. Remains asymptomatic. Labs continue to trend down with AST and ALT normal at this time . Review of Systems General: No Chills, No Night Sweats HEENT: No Head Aches, No Visual Changes Pulmonary: No Dyspnea, No Cough Cardiovascular: No: Chest Pain, Palpitations Gastrointestinal: No: Nausea, Vomiting, Abdominal Pain, Diarrhea, Constipation Objective Exam Vital Signs Date Time Temp Pulse Resp B/P (MAP) Pulse Ox O2 Delivery O2 Flow Rate FiO2 04/09/19 08:00 36.4 73 20 143/71 (95) 91 Room Air 04/09/19 04:00 36.2 78 18 139/61 (87) 92 Room Air 04/09/19 00:00 36.6 64 20 144/65 (91) 95 Room Air 04/08/19 20:15 Room Air 04/08/19 20:00 36.2 64 16 134/80 (98) 94 Room Air 04/08/19 16:00 36.6 67 16 109/70 (83) 94 Room Air 04/08/19 12:48 70 04/08/19 12:16 36.6 65 16 124/76 (92) 95 Room Air I & O 04/09/19 07:00 Intake Total 2152 ml Output Total 1600 ml Balance 552 ml Capillary Refill : Less Than 3 SecondsNONE General Appearance: No Apparent Distress, WD/WN HEENT: Normal ENT Inspection Neck: Full Range of Motion, Normal Inspection Respiratory: Lungs Clear, No Accessory Muscle Use, No Respiratory Distress Cardiovascular: Regular Rate, Rhythm Peripheral Pulses: 2+ Dorsalis Pedis (R), 2+ Left Dors-Pedis (L), 2+ Radial Pulses (R), 2+ Radial Pulses (L) Gastrointestinal: non tender, soft Extremity: Other (Ulcers of legs) Neurologic/Psychiatric: Alert, Oriented x3, Other (oriented to person and place seems to have some confusion at times, hx of dementia) Skin: Normal Color, Warm/Dry, Other (lower extremity ulcers wrapped) Lymphatic: No Adenopathy Results Lab Laboratory Tests 04/08/19 11:29: Glucometer 331H 2/3/20 16:15: Glucometer 174H 04/08/19 20:36: Glucometer 251H 04/09/19 05:33: White Blood Count 5.6, Red Blood Count 3.71L, Hemoglobin 9.5L, Hematocrit 31L, Mean Corpuscular Volume 83, Mean Corpuscular Hemoglobin 26, Mean Corpuscular Hemoglobin Concent 31L, Red Cell Distribution Width 15.3H, Platelet Count 208, Mean Platelet Volume 11.1H, Sodium Level 135, Potassium Level 4.0, Chloride Level 103, Carbon Dioxide Level 24, Anion Gap 8, Blood Urea Nitrogen 17, Creatinine 1.07, Estimat Glomerular Filtration Rate > 60, BUN/Creatinine Ratio 16, Glucose Level 187H, Calcium Level 8.5, Corrected Calcium 9.5, Total Bilirubin 0.4, Aspartate Amino Transf (AST/SGOT) 31, Alanine Aminotransferase (ALT/SGPT) 53, Alkaline Phosphatase 164H, Total Protein 5.3L, Albumin 2.7L 04/09/19 06:11: Glucometer 162H Microbiology 04/03/19 Urine Culture - Final, Complete YEAST Mixed Bacterial Azul 04/01/19 Blood Culture - Final, Complete No growth Assessment/Plan Assessment/Plan Assessment/Plan 1) Questionable Cholecystitis- evidence of cholelithiasis, Gallbladder not visualized on HIDA scan but shows patent common bile duct. Pt remains asymptomatic. AST/ALT normal today, ALP continues to trend down. 2)UTI-Cultures grew yeast, was started on fluconazole, Managed by primary care team 3)Insulin dependent DMII-Managed by primary care team 4)HTN-Controlled, Managed by primary care team 5)CAD-on dual antiplatelet therapy, Hx of Stent in 12/28/2018, Cardiology on board and does not recommend stopping anticoagulation at this time if surgery is not emergent as pt is at high risk for cardiovascular events 6)Ulcers on lower extremities 7)Dementia Clear from surgery stand point for D/C. Clinical Quality Measures DVT/VTE Risk/Contraindication: Risk Factor Score Per Nursin RFS Level Per Nursing on Admit: 4+=Very High MINNIE CHAPARRO DO 04/09/192126: Subjective Subjective/Events-last exam no abdominal pain. tolerating diet without difficulty. labs trending down. does not want surgery. denies n/v fever sweats chills shortness of breath or chest pain Objective Exam General Appearance: No Apparent Distress, WD/WN, Obese HEENT: PERRL/EOMI, Normal ENT Inspection Neck: Full Range of Motion, Normal Inspection Respiratory: Chest Non Tender, No Accessory Muscle Use, No Respiratory Distress Cardiovascular: Regular Rate, Rhythm Gastrointestinal: non tender, soft; No guarding, No rebound Extremity: Other (Ulcers of legs) Neurologic/Psychiatric: Alert, Oriented x3, Other (oriented to person and place and time) Skin: Normal Color, Warm/Dry, Other (lower extremity ulcers wrapped) Lymphatic: No Adenopathy Assessment/Plan Assessment/Plan Assessment/Plan elevated liver enzymes cholelithiasis possible cholecystitis patient no symptoms of gallbladder disease at this time, no pain and liver enzymes improving high risk and cardiology not wanting him to come off antiplatelet since asymptomatic and enzymes trending down don't feel this is likely cholecystitis no surgical intervention at this time, if change in condition to re-evaluate Supervisory-Addendum Brief Verification & Attestation Participated in pt care: history, MDM, physical Personally performed: exam, history, MDM, supervision of care Care discussed with: Medical Student Procedures: n/a Results interpretation: Verified all documentation Verification and Attestation of Medical Student E/M Service A medical student performed and documented this service in my presence. I reviewed and verified all information documented by the medical student and made modifications to such information, when appropriate. I personally performed the physical exam and medical decision making. Minnie Chaparro, Apr 09, 2019,21:26 [facility] Apr 09, 2019 08:41 MINNIE CHAPARRO DO Apr 09, 2019 21:27
--- NOTE | 2019-04-09 08:45 | Discharge Inst-Skilled Nursing ---
Discharge Inst-Skilled NF Reconcile Patient Problems Problems Reviewed?: Yes Patient Instructions Patient Problems: Leg ulcers. Resolved cholecystitis. Diabetes. Dementia. Weakness. Consult/Follow Up/Orders Skilled NF Admit to: Certification (SNF) I certify that SNF services are required to be given on an inpatient basis because of the above named patient's need for fdc care on a continuing basis for the conditions(s) for which he/she was receiving inpatient hospital services prior to his/her transfer to the SNF. [facility] Facility Order: Nursing Services, Petroleum Inspector Supervisor-Evaluate & Treat ([facility]), Physical Therapy-Evaluate & Treat Oxygen Delivery Method: Room Air Discharge Diet: ADA Diet Daily Activity as Tolerated: Yes Resuscitation Status: Full Code New & Resume Previous Orders Marko White Apr 09, 2019 08:43 MARKO WHITE DO Apr 09, 2019 08:44
--- NOTE | 2019-04-09 09:11 | Physical Therapy Daily Note ---
PT Daily Note-Current Subjective Patient agreeable to therapy at this time. Appearance Patient in recliner with call light and bedside table within reach. Mental Status Patient Orientation: Normal For Age Transfers SCALE: Activities may be completed with or without assistive devices. 8-Lmlxucrryy-lkjttjk completes the activity by him/herself with no assistance from a helper. 5-Set-up or Clean-up Assistance-helper sets up or cleans up; patient completes activity. [place] assists only prior to or following the activity. 4-Supervision or Touching Assistance-helper provides verbal cues and/or touching/steadying and/or contact guard assistance as patient completes activity. Assistance may be provided throughout the activity or intermittently. 3-Partial/Moderate Assistance-helper does LESS THAN HALF the effort. [place] lifts, holds or supports trunk or limbs, but provides less than half the effort. 2-Substantial/Maximal Assistance-helper does MORE THAN HALF the effort. [place] lifts or holds trunk or limbs and provides more than half the effort. 6-Apdjznmts-zproab does ALL the effort. Patient does none of the effort to complete the activity. Or, the assistance of 2 or more helpers is required for the patient to complete the activity. If activity was not attempted, code reason: 7-Patient Refused. 9-Not Applicable-not attempted and the patient did not perform the activity before the current illness, exacerbation or injury. 10-Not Attempted due to Environmental Limitations-(lack of equipment, weather restraints, etc.). 88-Not Attempted due to Medical Conditions or Safety Concerns. Lying to Sitting/Side of Bed(Q: 6 (Patient IND but with extra time) Sit to Stand (QC): 4 Chair/Lzk-ob-Zgqkj Xfer(QC): 4 Weight Bearing Right Lower Extremity: Right Weight Bearing/Tolerated Left Lower Extremity: Left Weight Bearing/Tolerated Gait Training Does the Patient Walk?: Yes Distance: 120' Walk 10 feet (QC): 4 Walk 50 ft with 2 Turns(QC): 4 Gait Persons Needed: 1 Gait Assistive Device: FWW CGA for safety. Wheelchair Training Does the Pt Use a Wheelchair?: No Treatments Bed mobility, transfers, ambulation. Assessment Patient was performed bed mobility actively at this time. Patient was steady during ambulation but got SOB towards the end of ambulation. Patient was able to catch breath quickly after sitting down. PT Bill Cutter Goals Bill Cutter Goals PT Bill Cutter Goals Time Frame: Apr 20, 2019 Roll Left & Right (QC): 3 Sit to Lying (QC): 3 Lying-Sitting on Side/Bed(QC): 3 Sit to Stand (QC): 3 Chair/Aak-bs-Mjewb Xfer(QC): 3 Does the Pt use WC or Scooter?: Yes Wheel 50 feet with 2 turns (QC: 6 Type: Motorized Wheel 150 feet: 6 Type: Motorized PT Plan Problem List Problem List: Activity Tolerance, Functional Strength, Safety, Balance, Gait, Transfer, Bed Mobility, ROM Treatment/Plan Treatment Plan: Continue Plan of Care Treatment Plan: Bed Mobility, Education, Functional Activity Honorio, Functional Strength, Gait, Safety, Therapeutic Exercise, Transfers Treatment Duration: Apr 20, 2019 Frequency: 6 times per week Estimated Hrs Per Day: .25 hour per day Safety Risks/Education Patient Education: Gait Training, Transfer Techniques Teaching Recipient: Patient Teaching Methods: Discussion Response to Teaching: Reinforcement Needed Time/GCodes Time In: 839 Time Out: 857 Total Billed Treatment Time: 18 Total Billed Treatment 1 visit GT 18 SALEEM YEN PT Apr 09, 2019 09:10
[2019-04-09] MEDS: SERTRALINE 50 MG (ZOLOFT) TABLET PO SCH (09:49)
[2019-04-09] MEDS: ENOXAPARIN 40 MG/0.4 ML (LOVENOX) SYR SC SCH (09:49)
[2019-04-09] MEDS: MULTIVIT W/MINERALS TAB (THERAGRAN M) PO SCH (09:49)
[2019-04-09] MEDS: FAMOTIDINE 20 MG (PEPCID) TABLET PO SCH (09:49)
[2019-04-09] MEDS: CLOPIDOGREL 75 MG (PLAVIX) TABLET PO SCH (09:49)
[2019-04-09] MEDS: MEMANTINE 5 MG (NAMENDA) TABLET PO SCH (09:49)
[2019-04-09] MEDS: fluCOnazole (DIFLUCAN) 100 MG TAB PO SCH (09:49)
[2019-04-09] MEDS: ASPIRIN E.C. 81 MG (ECOTRIN) TAB PO SCH (09:51)
[2019-04-09 12:00] VITALS: BP 121/73
--- NOTE | 2019-04-09 12:37 | NUR ---
CM/SS: Visited with pt as to his plan for discharge, and complete CARE Assessment Plan: Pt will discharge to [facility] today Summary: Pt will discharge to [facility] today. Level 1 CARE Assessment completed. Facility contacted and discharge summary faxed to them along with the CARE Assessment. Pt having pretty good day and does desire at some point to return home. Facility will confirm the time they will pickling operator pt. Report is to be called into [phone], this information is passed along to RENU Mcclure.
--- NOTE | 2019-04-09 13:44 | Cardiology Progress Note ---
Subjective Date Seen by Provider: Apr 09, 2019 Time Seen by Provider: 13:43 Subjective/Events-last exam Patient is sitting in a chair, more confused today. No chest pain Review of Systems General: No Chills, No Night Sweats, No Fatigue, No Malaise, No Appetite, No Other HEENT: No Head Aches, No Visual Changes, No Eye Pain, No Ear Pain, No Dysphasia, No Sinus Congestion, No Post Nasal Drip, No Sore Throat, No Other Pulmonary: No Dyspnea, No Cough, No Pleuritic Chest Pain, No Other Cardiovascular: No: Chest Pain, Palpitations, Orthopnea, Paroxysmal Noc. Dyspnea, Edema, Lt Headedness, Other Objective-Cardiology Exam Last Set of Vital Signs Vital Signs 04/08/19 04/09/19 04:00 12:00 Temp 36.6 Pulse 71 Resp 18 B/P (MAP) 121/73 (89) Pulse Ox 98 O2 Delivery Room Air O2 Flow Rate 2.00 Capillary Refill : Less Than 3 SecondsNONE I&O Intake and Output 04/09/19 00:00 Intake Total 2252 ml Output Total 1325 ml Balance 927 ml Intake Oral 2252 ml Output Urine Total 1325 ml # Voids 3 # Bowel Movements 3 General: Alert, Oriented X3, Cooperative HEENT: Atraumatic, PERRLA Neck: Supple, No JVD, No Thyromegaly Lungs: Clear to Auscultation, Normal Air Movement Heart: Regular Rate, Normal S1, Normal S2, No Murmurs Abdomen: Normal Bowel Sounds Extremities: No Clubbing, Other (BLE with C/D/I dressing, legs are wrapped) Skin: No Rashes Neuro: Normal Speech, Cranial Nerves 3-12 NL Psych/Mental Status: Mood NL Results Lab Laboratory Tests 04/09/19 05:33 A/P-Cardiology Admission Diagnosis Coronary artery disease Hypertension Hyperlipidemia Sinus node dysfunction Assessment/Plan Change in mental status, likely secondary to UTI, improved, more confused today Urinary tract infection, received antibiotics, management per hospitalist Possible cholecystitis, may require cholecystectomy in the near future. Seen by Dr. Chaparro Coronary artery disease, history of a stent done in June 2006 using ultra 4.518 mm bare-metal stent to the LAD, another stent done in December 2009 using Promus 3.012 mm distal right coronary artery. Coronary angiogram done in July 2016 showed patent stent in the coronary system with irpd-yr-zcvsbhgz disease, occlusion of a small branch of the circumflex artery which is very small artery getting filled by collaterals, underwent cardiac catheterization on December 28, 2018 with severe in-stent restenosis in the LAD underwent stent deployment using Radha 3 x 15 expanded to 3.2 mm overlapping with old stent. Had moderate to severe disease at the distal LAD which is very small artery. Patient will need to be on dual antiplatelet therapy for 6 months, minimum of 3 months. BLE wounds, recent cellulitis-patient had CTA of abdominal aorta with runoff suggestive of stenosis at the right anterior tibial artery. Peripheral angiogram showed hbfo-eq-emjppnvd disease, slow flow due to small vessel disease. It appears that he has venous stasis ulceration bilaterally. Last ang iogram was done in July 2016. NICK's done Dec 2017. Following with wound care in [place]. Syncope/near syncopal episode, severe weakness due to severe bradycardia, improved after discontinuing atenolol and amiodarone. Continue to monitor. Sick sinus syndrome/sinus pause with escape junctional rhythm with heart rate in the 30s, underlying sinus node dysfunction is present probably exacerbated by atenolol and amiodarone which was stopped. Heart rate improved. Questionable paroxysmal atrial flutter, Holter monitor was done in November 2016 and showed sinus rhythm with 6 beats nonsustained ventricular tachycardia with occasional atrial and ventricular premature contractions. Has been asymptomatic. Continue to monitor [id number] score of 4, yearly risk of stroke without oral anticoagulation is 4.2 percent, currently not on oral anticoagulation, not having any atrial fibrillation. Continue to monitor Hypertension-controlled. Continue to monitor blood pressure/heart rate. Hyperlipidemia,continue to monitor. Carotid stenosis, status post carotid endarterectomy done by Dr. Pineda in July 2014, most recent carotid duplex February 2018 showing moderate disease on the right, mild disease on the left. Continue to monitor. 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 Gastroesophageal reflux disease. Clinical Quality Measures DVT/VTE Risk/Contraindication: Risk Factor Score Per Nursin RFS Level Per Nursing on Admit: 4+=Very High CAROL MARTINEZ MD Apr 09, 2019 13:44
[2019-04-09 14:53] VITALS: BP 121/73
--- NOTE | 2019-04-09 18:15 | Discharge Summary ---
Diagnosis/Chief Complaint Date of Admission Apr 01, 2019 at 20:50 Date of Discharge Apr 09, 2019 at 14:53 Discharge Date: Apr 09, 2019 Discharge Time: 18:13 Discharge Diagnosis Confusion. UTI. Dementia. Acute renal insufficiency. Diabetes. Coronary artery disease. Hyperlipidemia Elevated liver enzymes. Acute cholecystitis. Ulcers of leg COPD. Essential hypertension. GERD. Previous myocardial infarction. Sleep apnea. Diabetic neuropathy. Reason Hospital Visit Patient brought to the emergency room by family member. Patient confused. Patient stated somebody told him down for 3 days. Family sees patient every day. Patient having confusion. Patient has UTI. Patient admitted Discharge Summary Consultations Cardiology. Surgery. Discharge Physical Examination Allergies: Coded Allergies: PING Inhibitors (Verified Allergy, Mild, 05/16/15) UNCONTROLLED COUGHING amoxicillin (Verified Allergy, Mild, itching (PT HAS RECEIVED CEFEPIME & ANCEF IN THE PAST), 11/25/15) Vitals & I&Os Vital Signs Date Time Temp Pulse Resp B/P (MAP) Pulse Ox O2 Delivery O2 Flow Rate FiO2 04/09/19 14:53 36.6 71 18 121/73 98 Room Air 04/08/19 04:00 2.00 Hospital Course Patient's liver enzymes went down. Patient no pain in the right upper quadrant. Patient transferred to [facility] in [place]. Patient doing better Labs (last 24 hrs) Laboratory Tests 04/01/19 19:42: Urine Color YELLOW, Urine Clarity CLOUDY, Urine pH 6.0, Urine Specific Bishop 1.020, Urine Protein 1+H, Urine Glucose (UA) NEGATIVE, Urine Ketones NEGATIVE, Urine Nitrite NEGATIVE, Urine Bilirubin NEGATIVE, Urine Urobilinogen 0.2, Urine Leukocyte Esterase 2+H, Urine RBC (Auto) 2+H, Urine RBC RARE, Urine WBC TNTCH, Urine Squamous Epithelial Cells RARE, Urine Crystals NONE, Urine Bacteria MODERATEH, Urine Casts NONE, Urine Mucus NEGATIVE, Urine Culture Indicated YES 04/01/19 19:54: White Blood Count 9.9, Red Blood Count 4.64, Hemoglobin 12.1L, Hematocrit 38L, Mean Corpuscular Volume 82, Mean Corpuscular Hemoglobin 26, Mean Corpuscular Hemoglobin Concent 32, Red Cell Distribution Width 15.5H, Platelet Count 246, Mean Platelet Volume 10.7H, Neutrophils (%) (Auto) 82H, Lymphocytes (%) (Auto) 9L, Monocytes (%) (Auto) 8, Eosinophils (%) (Auto) 1, Basophils (%) (Auto) 0, Neutrophils # (Auto) 8.2H, Lymphocytes # (Auto) 0.9L, Monocytes # (Auto) 0.8, E osinophils # (Auto) 0.1, Basophils # (Auto) 0.0, Prothrombin Time 15.0H, INR Co mment 1.1, Activated Partial Thromboplast Time 37H, Sodium Level 141, Potassium Level 4.4, Chloride Level 104, Carbon Dioxide Level 20L, Anion Gap 17H, Blood Urea Nitrogen 31H, Creatinine 1.52H, Estimat Glomerular Filtration Rate 45, BUN/Creatinine Ratio 20, Glucose Level 190H, Lactic Acid Level 1.77, Calcium Level 9.3, Corrected Calcium 9.7, Magnesium Level 1.3L, Total Bilirubin 0.8, Aspartate Amino Transf (AST/SGOT) 50H, Alanine Aminotransferase (ALT/SGPT) 18, Alkaline Phosphatase 80, B-Type Natriuretic Peptide 87.1, Total Protein 6.9, Albumin 3.5 04/01/19 20:50: Lab Scanned Report Referred Lab Report 04/02/19 05:24: Glucometer 175H 04/02/19 06:28: White Blood Count 8.8, Red Blood Count 4.19L, Hemoglobin 11.0L, Hematocrit 35L, Mean Corpuscular Volume 83, Mean Corpuscular Hemoglobin 26, Mean Corpuscular Hemoglobin Concent 32, Red Cell Distribution Width 15.3H, Platelet Count 220, Mean Platelet Volume 11.1H, Neutrophils (%) (Auto) 75, Lymphocytes (%) (Auto) 13, Monocytes (%) (Auto) 9, Eosinophils (%) (Auto) 3, Basophils (%) (Auto) 0, Neutrophils # (Auto) 6.6, Lymphocytes # (Auto) 1.2, Monocytes # (Auto) 0.8, Eosinophils # (Auto) 0.2, Basophils # (Auto) 0.0, Sodium Level 137, Potassium Level 4.1, Chloride Level 101, Carbon Dioxide Level 23, Anion Gap 13, Blood Urea Nitrogen 32H, Creatinine 1.37H, Estimat Glomerular Filtration Rate 51, BUN/Creatinine Ratio 23, Glucose Level 168H, Mean Blood Glucose 148H, Hemoglobin A1c 6.8H, Calcium Level 8.9, Corrected Calcium 9.5, Magnesium Level 2.2, Total Bilirubin 0.6, Aspartate Amino Transf (AST/SGOT) 46H, Alanine Aminotransferase (ALT/SGPT) 16, Alkaline Phosphatase 71, Total Protein 6.2L, Albumin 3.2 04/02/19 11:41: Glucometer 306H 04/02/19 15:54: Glucometer 159H 04/02/19 21:06: Glucometer 197H 04/03/19 05:35: White Blood Count 6.4, Red Blood Count 3.83L, Hemoglobin 9.9L, Hematocrit 32L, M christina Corpuscular Volume 83, Mean Corpuscular Hemoglobin 26, Mean Corpuscular Hemoglobin Concent 31L, Red Cell Distribution Width 15.3H, Platelet Count 185, Mean Platelet Volume 11.1H, Sodium Level 134L, Potassium Level 4.1, Chloride Level 102, Carbon Dioxide Level 25, Anion Gap 7, Blood Urea Nitrogen 35H, Creatinine 1.39H, Estimat Glomerular Filtration Rate 50, BUN/Creatinine Ratio 25, Glucose Level 172H, Calcium Level 8.1L, Corrected Calcium 9.1, Total Bilirubin 0.3, Aspartate Amino Transf (AST/SGOT) 34, Alanine Aminotransferase (ALT/SGPT) 13, Alkaline Phosphatase 71, Total Protein 5.5L, Albumin 2.8L 04/03/19 06:03: Glucometer 173H 04/03/19 11:18: Glucometer 227H 04/03/19 15:18: Glucometer 244H 04/03/19 16:01: Glucometer 219H 04/03/19 21:13: Glucometer 209H 04/03/19 21:20: Urine Color YELLOW, Urine Clarity CLEAR, Urine pH 6.0, Urine Specific Bishop 1.025H, Urine Protein 1+H, Urine Glucose (UA) NEGATIVE, Urine Ketones NEGATIVE, Urine Nitrite NEGATIVE, Urine Bilirubin NEGATIVE, Urine Urobilinogen 0.2, Urine Leukocyte Esterase 2+H, Urine RBC (Auto) 1+H, Urine RBC 0-2, Urine WBC >100H, Urine Squamous Epithelial Cells RARE, Urine Crystals NONE, Urine Bacteria TRACE, Urine Casts NONE, Urine Mucus NEGATIVE, Urine Yeast MODERATEH, Urine Culture Indicated YES 04/04/19 05:33: Glucometer 262H 04/04/19 05:55: White Blood Count 7.9, Red Blood Count 4.30L, Hemoglobin 11.2L, Hematocrit 35L, Mean Corpuscular Volume 81, Mean Corpuscular Hemoglobin 26, Mean Corpuscular Hemoglobin Concent 32, Red Cell Distribution Width 14.9H, Platelet Count 201, Mean Platelet Volume 11.2H, Sodium Level 134L, Potassium Level 4.2, Chloride Level 101, Carbon Dioxide Level 21, Anion Gap 12, Blood Urea Nitrogen 25H, Creatinine 1.10, Estimat Glomerular Filtration Rate > 60, BUN/Creatinine Ratio 23, Glucose Level 244H, Calcium Level 8.5, Corrected Calcium 9.2, Total Bilirubin 1.1H, Aspartate Amino Transf (AST/SGOT) 201H, Alanine Aminotransferase (ALT/SGPT) 83H, Alkaline Phosphatase 154H, Total Protein 6.2L, Albumin 3.1L 04/04/19 11:23: Glucometer 250H 04/04/19 16:26: Glucometer 222H 04/04/19 21:46: Glucometer 218H 04/05/19 04:40: White Blood Count 5.1, Red Blood Count 4.15L, Hemoglobin 10.6L, Hematocrit 34L, Mean Corpuscular Volume 81, Mean Corpuscular Hemoglobin 26, Mean Corpuscular Hemoglobin Concent 32, Red Cell Distribution Width 15.0H, Platelet Count 181, M christina Platelet Volume 10.9H, Sodium Level 133L, Potassium Level 4.1, Chloride Level 102, Carbon Dioxide Level 25, Anion Gap 6, Blood Urea Nitrogen 19H, Creatinine 0.92, Estimat Glomerular Filtration Rate > 60, BUN/Creatinine Ratio 21, Glucose Level 177H, Calcium Level 8.4L, Corrected Calcium 9.4, Total Bilirubin 2.6H, Aspartate Amino Transf (AST/SGOT) 337H, Alanine Aminotransferase (ALT/SGPT) 224H, Alkaline Phosphatase 195H, Total Protein 5.7L, Albumin 2.8L 04/05/19 11:27: Glucometer 191H 04/05/19 16:12: Glucometer 234H 04/05/19 20:42: Glucometer 213H 04/06/19 05:42: Glucometer 154H 04/06/19 06:10: White Blood Count 5.5, Red Blood Count 3.68L, Hemoglobin 9.7L, Hematocrit 30L, Mean Corpuscular Volume 82, Mean Corpuscular Hemoglobin 26, Mean Corpuscular Hemoglobin Concent 32, Red Cell Distribution Width 14.9H, Platelet Count 176, Mean Platelet Volume 11.0H, Sodium Level 134L, Potassium Level 4.2, Chloride Level 104, Carbon Dioxide Level 21, Anion Gap 9, Blood Urea Nitrogen 22H, Creatinine 1.07, Estimat Glomerular Filtration Rate > 60, BUN/Creatinine Ratio 21, Glucose Level 154H, Calcium Level 8.3L, Corrected Calcium 9.4, Total Bilirubin 0.8, Aspartate Amino Transf (AST/SGOT) 135H, Alanine Aminotransferase (ALT/SGPT) 134H, Alkaline Phosphatase 190H, Total Protein 5.3L, Albumin 2.6L 04/06/19 11:09: Glucometer 144H 04/06/19 16:32: Glucometer 238H 04/06/19 20:32: Glucometer 178H 04/07/19 05:20: Glucometer 138H 04/07/19 05:43: White Blood Count 5.0, Red Blood Count 3.85L, Hemoglobin 10.0L, Hematocrit 32L, Mean Corpuscular Volume 83, Mean Corpuscular Hemoglobin 26, Mean Corpuscular Hemoglobin Concent 31L, Red Cell Distribution Width 15.3H, Platelet Count 205, Mean Platelet Volume 11.0H, Sodium Level 135, Potassium Level 4.2, Chloride Level 103, Carbon Dioxide Level 24, Anion Gap 8, Blood Urea Nitrogen 21H, Creatinine 1.06, Estimat Glomerular Filtration Rate > 60, BUN/Creatinine Ratio 20, Glucose Level 152H, Calcium Level 8.4L, Corrected Calcium 9.4, Total Bilirubin 0.5, Aspartate Amino Transf (AST/SGOT) 71H, Alanine Aminotransferase (ALT/SGPT) 94H, Alkaline Phosphatase 189H, Total Protein 5.5L, Albumin 2.7L 04/07/19 10:59: Glucometer 246H 04/07/19 16:03: Glucometer 160H 04/07/19 21:14: Glucometer 235H 04/08/19 05:21: Glucometer 189H 04/08/19 11:29: Glucometer 331H 04/08/19 16:15: Glucometer 174H 04/08/19 20:36: Glucometer 251H 04/09/19 05:33: White Blood Count 5.6, Red Blood Count 3.71L, Hemoglobin 9.5L, Hematocrit 31L, Mean Corpuscular Volume 83, Mean Corpuscular Hemoglobin 26, Mean Corpuscular Hemoglobin Concent 31L, Red Cell Distribution Width 15.3H, Platelet Count 208, Mean Platelet Volume 11.1H, Sodium Level 135, Potassium Level 4.0, Chloride Level 103, Carbon Dioxide Level 24, Anion Gap 8, Blood Urea Nitrogen 17, Creatinine 1.07, Estimat Glomerular Filtration Rate > 60, BUN/Creatinine Ratio 16, Glucose Level 187H, Calcium Level 8.5, Corrected Calcium 9.5, Total Bilirubin 0.4, Aspartate Amino Transf (AST/SGOT) 31, Alanine Aminotransferase (ALT/SGPT) 53, Alkaline Phosphatase 164H, Total Protein 5.3L, Albumin 2.7L 04/09/19 06:11: Glucometer 162H 04/09/19 11:11: Glucometer 209H Microbiology 04/03/19 Urine Culture - Final, Complete YEAST Mixed Bacterial Azul 04/01/19 Blood Culture - Final, Complete No growth Laboratory Tests 04/01/19 19:54 04/02/19 06:28 04/03/19 05:35 04/04/19 05:55 04/05/19 04:40 04/06/19 06:10 04/07/19 05:43 04/09/19 05:33 Pending Labs Microbiology Date/Time Source Procedure Growth Status 04/03/19 21:20 Urine Clean Catch Urine Culture - Final YEAST Mixed Bacterial Azul Complete 04/01/19 20:19 Peripheral Lt Ac Blood Culture - Final No growth Complete 04/01/19 19:54 Peripheral Left Wrist Blood Culture - Final Citrobacter youngae Streptococcus mitis group Complete 04/01/19 19:42 Urine Straight Cath, In/Out Urine Culture - Final YEAST Complete Laboratory Tests 04/01/19 19:42: Urine Color YELLOW, Urine Clarity CLOUDY, Urine pH 6.0, Urine Specific Bishop 1.020, Urine Protein 1+, Urine Glucose (UA) NEGATIVE, Urine Ketones NEGATIVE, Urine Nitrite NEGATIVE, Urine Bilirubin NEGATIVE, Urine Urobilinogen 0.2, Urine Leukocyte Esterase 2+, Urine RBC (Auto) 2+, Urine RBC RARE, Urine WBC TNTC, Urine Squamous Epithelial Cells RARE, Urine Crystals NONE, Urine Bacteria MODERATE, Urine Casts NONE, Urine Mucus NEGATIVE, Urine Culture Indicated YES 04/01/19 19:54: White Blood Count 9.9, Red Blood Count 4.64, Hemoglobin 12.1, Hematocrit 38, Mean Corpuscular Volume 82, Mean Corpuscular Hemoglobin 26, Mean Corpuscular Hemoglobin Concent 32, Red Cell Distribution Width 15.5, Platelet Count 246, Mean Platelet Volume 10.7, Neutrophils (%) (Auto) 82, Lymphocytes (%) (Auto) 9, Monocytes (%) (Auto) 8, Eosinophils (%) (Auto) 1, Basophils (%) (Auto) 0, Neutrophils # (Auto) 8.2, Lymphocytes # (Auto) 0.9, Monocytes # (Auto) 0.8, Eosinophils # (Auto) 0.1, Basophils # (Auto) 0.0, Prothrombin Time 15.0, INR Comment 1.1, Activated Partial Thromboplast Time 37, Sodium Level 141, Potassium Level 4.4, Chloride Level 104, Carbon Dioxide Level 20, Anion Gap 17, Blood Urea Nitrogen 31, Creatinine 1.52, Estimat Glomerular Filtration Rate 45, BUN/Creatinine Ratio 20, Glucose Level 190, Lactic Acid Level 1.77, Calcium Level 9.3, Corrected Calcium 9.7, Magnesium Level 1.3, Total Bilirubin 0.8, Aspa rtate Amino Transf (AST/SGOT) 50, Alanine Aminotransferase (ALT/SGPT) 18, Alkaline Phosphatase 80, B-Type Natriuretic Peptide 87.1, Total Protein 6.9, Albumin 3.5 04/01/19 20:50: Lab Scanned Report Referred Lab Report 04/02/19 05:24: Glucometer 175 04/02/19 06:28: White Blood Count 8.8, Red Blood Count 4.19, Hemoglobin 11.0, Hematocrit 35, Mean Corpuscular Volume 83, Mean Corpuscular Hemoglobin 26, Mean Corpuscular Hemoglobin Concent 32, Red Cell Distribution Width 15.3, Platelet Count 220, Mean Platelet Volume 11.1, Neutrophils (%) (Auto) 75, Lymphocytes (%) (Auto) 13, Monocytes (%) (Auto) 9, Eosinophils (%) (Auto) 3, Basophils (%) (Auto) 0, Neutrophils # (Auto) 6.6, Lymphocytes # (Auto) 1.2, Monocytes # (Auto) 0.8, Eosinophils # (Auto) 0.2, Basophils # (Auto) 0.0, Sodium Level 137, Potassium Level 4.1, Chloride Level 101, Carbon Dioxide Level 23, Anion Gap 13, Blood Urea Nitrogen 32, Creatinine 1.37, Estimat Glomerular Filtration Rate 51, BUN/Creatinine Ratio 23, Glucose Level 168, Mean Blood Glucose 148, Hemoglobin A1c 6.8, Calcium Level 8.9, Corrected Calcium 9.5, Magnesium Level 2.2, Total Bilirubin 0.6, Aspartate Amino Transf (AST/SGOT) 46, Alanine Aminotransferase (ALT/SGPT) 16, Alkaline Phosphatase 71, Total Protein 6.2, Albumin 3.2 04/02/19 11:41: Glucometer 306 04/02/19 15:54: Glucometer 159 04/02/19 21:06: Glucometer 197 04/03/19 05:35: White Blood Count 6.4, Red Blood Count 3.83, Hemoglobin 9.9, Hematocrit 32, Mean Corpuscular Volume 83, Mean Corpuscular Hemoglobin 26, Mean Corpuscular Hemoglobin Concent 31, Red Cell Distribution Width 15.3, Platelet Count 185, Mean Platelet Volume 11.1, Sodium Level 134, Potassium Level 4.1, Chloride Level 102, Carbon Dioxide Level 25, Anion Gap 7, Blood Urea Nitrogen 35, Creatinine 1.39, Estimat Glomerular Filtration Rate 50, BUN/Creatinine Ratio 25, Glucose Level 172, Calcium Level 8.1, Corrected Calcium 9.1, Total Bilirubin 0.3, Aspartate Amino Transf (AST/SGOT) 34, Alanine Aminotransferase (ALT/SGPT) 13, Alkaline Phosphatase 71, Total Protein 5.5, Albumin 2.8 04/03/19 06:03: Glucometer 173 04/03/19 11:18: Glucometer 227 04/03/19 15:18: Glucometer 244 04/03/19 16:01: Glucometer 219 04/03/19 21:13: Glucometer 209 04/03/19 21:20: Urine Color YELLOW, Urine Clarity CLEAR, Urine pH 6.0, Urine Specific Bishop 1.025, Urine Protein 1+, Urine Glucose (UA) NEGATIVE, Urine Ketones NEGATIVE, Urine Nitrite NEGATIVE, Urine Bilirubin NEGATIVE, Urine Urobilinogen 0.2, Urine Leukocyte Esterase 2+, Urine RBC (Auto) 1+, Urine RBC 0-2, Urine WBC >100, Urine Squamous Epithelial Cells RARE, Urine Crystals NONE, Urine Bacteria TRACE, Urine Casts NONE, Urine Mucus NEGATIVE, Urine Yeast MODERATE, Urine Culture Indicated YES 04/04/19 05:33: Glucometer 262 04/04/19 05:55: White Blood Count 7.9, Red Blood Count 4.30, Hemoglobin 11.2, Hematocrit 35, Mean Corpuscular Volume 81, Mean Corpuscular Hemoglobin 26, Mean Corpuscular Hemoglobin Concent 32, Red Cell Distribution Width 14.9, Platelet Count 201, Mean Platelet Volume 11.2, Sodium Level 134, Potassium Level 4.2, Chloride Level 101, Carbon Dioxide Level 21, Anion Gap 12, Blood Urea Nitrogen 25, Creatinine 1.10, Estimat Glomerular Filtration Rate > 60, BUN/Creatinine Ratio 23, Glucose Level 244, Calcium Level 8.5, Corrected Calcium 9.2, Total Bilirubin 1.1, Aspart ate Amino Transf (AST/SGOT) 201, Alanine Aminotransferase (ALT/SGPT) 83, Alkaline Phosphatase 154, Total Protein 6.2, Albumin 3.1 04/04/19 11:23: Glucometer 250 04/04/19 16:26: Glucometer 222 04/04/19 21:46: Glucometer 218 04/05/19 04:40: White Blood Count 5.1, Red Blood Count 4.15, Hemoglobin 10.6, Hematocrit 34, Sol n Corpuscular Volume 81, Mean Corpuscular Hemoglobin 26, Mean Corpuscular Hemoglobin Concent 32, Red Cell Distribution Width 15.0, Platelet Count 181, Mean Platelet Volume 10.9, Sodium Level 133, Potassium Level 4.1, Chloride Level 102, Carbon Dioxide Level 25, Anion Gap 6, Blood Urea Nitrogen 19, Creatinine 0.92, Estimat Glomerular Filtration Rate > 60, BUN/Creatinine Ratio 21, Glucose Level 177, Calcium Level 8.4, Corrected Calcium 9.4, Total Bilirubin 2.6, Aspartate Amino Transf (AST/SGOT) 337, Alanine Aminotransferase (ALT/SGPT) 224, Alkaline Phosphatase 195, Total Protein 5.7, Albumin 2.8 04/05/19 11:27: Glucometer 191 04/05/19 16:12: Glucometer 234 04/05/19 20:42: Glucometer 213 04/06/19 05:42: Glucometer 154 04/06/19 06:10: White Blood Count 5.5, Red Blood Count 3.68, Hemoglobin 9.7, Hematocrit 30, Mean Corpuscular Volume 82, Mean Corpuscular Hemoglobin 26, Mean Corpuscular Hemoglo bin Concent 32, Red Cell Distribution Width 14.9, Platelet Count 176, Mean Platelet Volume 11.0, Sodium Level 134, Potassium Level 4.2, Chloride Level 104, Carbon Dioxide Level 21, Anion Gap 9, Blood Urea Nitrogen 22, Creatinine 1.07, Estimat Glomerular Filtration Rate > 60, BUN/Creatinine Ratio 21, Glucose Level 154, Calcium Level 8.3, Corrected Calcium 9.4, Total Bilirubin 0.8, Aspartate Amino Transf (AST/SGOT) 135, Alanine Aminotransferase (ALT/SGPT) 134, Alkaline Phosphatase 190, Total Protein 5.3, Albumin 2.6 04/06/19 11:09: Glucometer 144 04/06/19 16:32: Glucometer 238 04/06/19 20:32: Glucometer 178 04/07/19 05:20: Glucometer 138 04/07/19 05:43: White Blood Count 5.0, Red Blood Count 3.85, Hemoglobin 10.0, Hematocrit 32, Mean Corpuscular Volume 83, Mean Corpuscular Hemoglobin 26, Mean Corpuscular Hemoglobin Concent 31, Red Cell Distribution Width 15.3, Platelet Count 205, Mean Platelet Volume 11.0, Sodium Level 135, Potassium Level 4.2, Chloride Level 103, Carbon Dioxide Level 24, Anion Gap 8, Blood Urea Nitrogen 21, Creatinine 1.06, Estimat Glomerular Filtration Rate > 60, BUN/Creatinine Ratio 20, Glucose Level 152, Calcium Level 8.4, Corrected Calcium 9.4, Total Bilirubin 0.5, Aspartate Amino Transf (AST/SGOT) 71, Alanine Aminotransferase (ALT/SGPT) 94, Alkaline Phosphatase 189, Total Protein 5.5, Albumin 2.7 04/07/19 10:59: Glucometer 246 04/07/19 16:03: Glucometer 160 04/07/19 21:14: Glucometer 235 04/08/19 05:21: Glucometer 189 04/08/19 11:29: Glucometer 331 04/08/19 16:15: Glucometer 174 04/08/19 20:36: Glucometer 251 04/09/19 05:33: White Blood Count 5.6, Red Blood Count 3.71, Hemoglobin 9.5, Hematocrit 31, Mean Corpuscular Volume 83, Mean Corpuscular Hemoglobin 26, Mean Corpuscular Hemoglobin Concent 31, Red Cell Distribution Width 15.3, Platelet Count 208, Mean Platelet Volume 11.1, Sodium Level 135, Potassium Level 4.0, Chloride Level 103, Carbon Dioxide Level 24, Anion Gap 8, Blood Urea Nitrogen 17, Creatinine 1.07, Estimat Glomerular Filtration Rate > 60, BUN/Creatinine Ratio 16, Glucose Level 187, Calcium Level 8.5, Corrected Calcium 9.5, Total Bilirubin 0.4, Aspartate Amino Transf (AST/SGOT) 31, Alanine Aminotransferase (ALT/SGPT) 53, Alkaline Phosphatase 164, Total Protein 5.3, Albumin 2.7 04/09/19 06:11: Glucometer 162 04/09/19 11:11: Glucometer 209 Discharge Home Medications: Active Scripts Active Reported Plavix (Clopidogrel Bisulfate) 75 Mg Tablet 75 Mg PO DAILY Donepezil HCl 5 Mg Tablet 5 Mg PO HS Namenda (Memantine HCl) 5 Mg Tablet 5 Mg PO DAILY Famotidine 20 Mg Tablet 20 Mg PO BID Sertraline HCl 50 Mg Tablet 50 Mg PO DAILY Iprat-Albut 0.5-3(2.5) mg/3 ml (Ipratropium/Albuterol Sulfate) 3 Ml Ampul.neb 3 Ml NEB Q4H PRN Basaglar Kwikpen U-100 (Insulin Glargine,Hum.rec.anlog) 100 Unit/1 Ml Insuln.pen 30-40 Units SC BID MOST OF THE TIME USES 30MG Multivitamins (Multivitamin) 1 Each Tablet 1 Tab PO DAILY Aspirin EC (Aspirin) 81 Mg Tablet.dr 81 Mg PO DAILY Atorvastatin Calcium 10 Mg Tablet 10 Mg PO HS Instructions to patient/family Please see electronic discharge instructions given to patient. Clinical Quality Measures DVT/VTE Risk/Contraindication: Risk Factor Score Per Nursin RFS Level Per Nursing on Admit: 4+=Very High TAMIKA WHITE DO Apr 09, 2019 18:15
== END 2019-04-09 14:53 | DRG 728 ==
LOC: EDUNIT# 19:37 → ER 19:38 → 4TH 20:50
PROVIDERS: ADMIT Family Medicine; ATTEND Family Medicine
DX: B37.49 Other urogenital candidiasis (principal); R41.0 Disorientation, unspecified; I25.10 Atherosclerotic heart disease of native coronary artery without angina pectoris; Z68.41 Body mass index [BMI] 40.0-44.9, adult; K80.00 Calculus of gallbladder with acute cholecystitis without obstruction; R39.15 Urgency of urination; I10 Essential (primary) hypertension; E78.00 Pure hypercholesterolemia, unspecified; I49.5 Sick sinus syndrome; R32 Unspecified urinary incontinence; J44.9 Chronic obstructive pulmonary disease, unspecified; N28.9 Disorder of kidney and ureter, unspecified; E11.51 Type 2 diabetes mellitus with diabetic peripheral angiopathy without gangrene; E11.622 Type 2 diabetes mellitus with other skin ulcer; E11.40 Type 2 diabetes mellitus with diabetic neuropathy, unspecified; G47.30 Sleep apnea, unspecified; F03.90 Unspecified dementia, unspecified severity, without behavioral disturbance, psychotic disturbance, mood disturbance, and anxiety; E66.01 Morbid (severe) obesity due to excess calories; K21.9 Gastro-esophageal reflux disease without esophagitis; M19.91 Primary osteoarthritis, unspecified site; I25.2 Old myocardial infarction; Z95.1 Presence of aortocoronary bypass graft; Z95.5 Presence of coronary angioplasty implant and graft; Z60.2 Problems related to living alone; Z96.651 Presence of right artificial knee joint; Z79.4 Long term (current) use of insulin
CPT/HCPCS: 36415; 70450; 71045; 72170; 73590; 74150; 76705; 78226; 80053; 81000; 82962; 83036; 83605; 83735; 83880; 85025; 85027; 85610; 85730; 87040; 87077; 87088; 87186; 93005; 96374

== ENCOUNTER 2019-08-13 12:50 | Observation (INO) | payer MEDICARE ==
[~2019-08-13] VITALS: Ht 175.3 cm; Wt 137.9 kg
[~2019-08-13 12:50] MED LIST changes: +CLOP75TA69 PO; +DONE5TAB30 PO; +FAMO20TA5 PO; +SERT50TA9 PO
--- NOTE | 2019-08-13 12:56 | NUR ---
PLACED ON 2 L NC SAO2 DOWN TO 88%
[2019-08-13 13:19] LABS: BASOPHILS % (AUTO) 0 % (0-10); EOSINOPHILS # (AUTO) 0.1 10^3/uL (0.0-0.3); EOSINOPHILS % (AUTO) 1 % (0-10); HEMATOCRIT 33 % (40-54); HEMOGLOBIN 10.7 G/DL (13.3-17.7); LYMPHOCYTES # (AUTO) 1.1 X 10^3 (1.0-4.0); LYMPHOCYTES % (AUTO) 13 % (12-44); MEAN CORPUSCULAR HEMOGLOBIN 27 PG (25-34); MEAN CORPUSCULAR HGB CONC 32 G/DL (32-36); MEAN CORPUSCULAR VOLUME 84 FL (80-99); MEAN PLATELET VOLUME 10.7 FL (7.4-10.4); MONOCYTES # (AUTO) 0.6 X 10^3 (0.0-1.0); MONOCYTES % (AUTO) 8 % (0-12); NEUTROPHILS # (AUTO) 6.2 X 10^3 (1.8-7.8); NEUTROPHILS % (AUTO) 78 % (42-75); PLATELET COUNT 186 10^3/uL (130-400); RED CELL DISTRIBUTION WIDTH 16.4 % (10.0-14.5); WHITE BLOOD COUNT 7.9 10^3/uL (4.3-11.0)
[2019-08-13 13:33] LABS: POTASSIUM 4.5 MMOL/L (3.6-5.0)
[2019-08-13 13:34] LABS: CALCIUM 8.5 MG/DL (8.5-10.1)
[2019-08-13 13:35] LABS: TOTAL PROTEIN 5.8 GM/DL (6.4-8.2)
[2019-08-13 13:37] LABS: BILIRUBIN,TOTAL 0.4 MG/DL (0.1-1.0)
[2019-08-13 13:39] LABS: CREATININE SERUM 1.24 MG/DL (0.60-1.30)
--- NOTE | 2019-08-13 14:00 | NUR ---
NO NEW C/O PATIENT EYES CLOSED EASILY AWAKENED.
--- OUTSIDE RECORDS SUMMARY | 2019-08-13 15:36 | XMS REPORT | Continuity of Care Document ---
Author Organization Unknown Address Unknown Phone Unavailable Allergies Active Description Code Type Severity Reaction Onset Reported/Identified Relationship to Patient Clinical Status Yes NKANo Known Allergies NKA Miscellaneous Allergy Unknown N/A 12/18/2014 Yes amoxicillin [id number] Drug Aller gy Mild itching 05/13/2015 [address] PING Inhib[address] [id number] Dr mami Allergy Mild N/A 05/16/2015 Yes amoxicillin [id number] Drug Aller gy Mild itching (PT HAS 11/25/2015 Medications There is no data. Problems Date Dx Coded Attending Type Code Diagnosis Diagnosed By PRAIDP MADISON MD, Ot E11.622 TYPE 2 DIABETES MELLITUS WITH OTHER SKIN PRADIP MADISON MD, Ot E66. 01 MORBID (SEVERE) OBESITY DUE TO EXCESS CA PRADIP MADISON MD Ot I50. 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, STAGE 2 PRADIP MADISON MD Ot L97.212 NON-PRESSURE CHRONIC ULCER OF RIGHT CALF 02/02/1199 PRADIP MADISON MD Ot E11.622 02/02/1199 PRADIP MADISON MD Ot G47.33 02/02/1199 PRADIP MADISON MD, Ot I87.331 02/02/1199 PRADIP MADISON MD, Ot L97.212 02/02/1199 PRADIP MADISON MD Ot M16 .9 02/02/1199 PRADIP MADISON MD Ot M17 .9 02/02/1199 PRADIP MADISON MD Ot R53 .1 12/30/2009 Ot 250.00 12/30/2009 Ot 272.4 12/30/2009 [...] CIRC DIS, TYPE II OR UNSPE 09/07/2013 REZA SPENCER Ot 272.0 PURE HYPERCHOLESTEROLEM 09/07/2013 SPENCER COBB DO Ot 357.2 NEUROPATHY IN DIABETES 09/07/2013 REZA CONTRERAS SPENCER K Ot 401.9 HYPERTENSION NOS 09/07/2013 SPENCER COBB DO Ot 412 OLD MYOCARDIAL INFARCT 09/07/2013 SPENCER COBB DO Ot 428.0 CONGESTIVE HEART FAILURE NOS 09/07/2013 JEFFREY COBB DOA Jane Ot 443.81 ANGIOPATHY IN OTHER DIS 09/07/2013 REZA SPECNER Jane Ot 459.81 VENOUS INSUFFICIENCY NOS 09/07/2013 JEFFREY COBB DOA Jane Ot 707.10 ULCER OF LOWER LIMB NOS 09/07/2013 JEFFREY COBB DOA Jane Ot 716.90 ARTHROPATHY NOS-UNSPEC 09/07/2013 SPENCER COBB DO Ot V45.82 PERCUTANEOUS TRANSLUM CORON ANGIOPLASTY 09/07/2013 SPENCER COBB DO Ot V58.62 ENCOUNT FOR LONG-TERM(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 OF AN 09/07/2013 SPENCER COBB DO Ot V58.66 LONG-TERM (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 OF ASPIRIN 09/07/2013 SPENCER COBB DO Ot V58.69 OTH MED,LT,CURRENT USE 10/01/2013 JORGE JONES, ESTELA R Ot 250. 00 DIAB SHERRIE WO COMPL, TYPE II OR UNSPEC TY 10/01/2013 ESTELA PATEL MD R Ot 272. 0 PURE HYPERCHOLESTEROLEM 10/01/2013 JORGE JONES, ESTELA Hartmann Ot 272. 4 HYPERLIPIDEMIA NEC/NOS 10/01/2013 ESTELA PATEL MD R Ot 401. 9 HYPERTENSION NOS 10/01/2013 ESTELA PATEL MD Ot 414. 01 CORONARY ATHEROSCLEROSIS OF [place] CORON 10/01/2013 ESTELA PATEL MD Ot 428. 0 CONGESTIVE HEART FAILURE NOS 10/01/2013 ESTELA PATEL MD Ot 584. 9 ACUTE RENAL FAILURE, UNSPECIFIED 10/01/2013 ESTELA PATEL MD Ot 780. 2 SYNCOPE AND COLLAPSE 10/01/2013 ESTELA PATEL MD Ot V58. 67 LONG-TERM (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 OF INSULIN 10/16/2013 TAMIKA [...] Casper Ot V72.84 07/24/2014 GRICELDA JONES, PRADIP Ivelisse Ot 250.80 07/24/2014 GRICELDA JONES, PRADIP Oviedo Ot 278.01 07/24/2014 GRICELDA JONES, PRADIP Oviedo Ot 414.01 07/24/2014 GRICELDA JONES, PRADIP Oviedo Ot 440.23 07/24/2014 GRICELDA JONES, PRADIP Oviedo Ot 459.33 07/24/2014 GRICELDA JONES, PRADIP Oviedo Ot 707.12 07/24/2014 GRICELDA JONES, PRADIP Oviedo Ot 785 .9 07/24/2014 GRICELDA JONES, PRADIP Oviedo Ot V45.82 07/24/2014 GRICELDA JONES, PRADIP Oviedo Ot 443 .9 07/24/2014 GRICELDA JONES, PRADIP Oviedo Ot 707.10 [...] 07/24/2014 Ot 786.09 07/24/2014 SILVA JONES, GE Caspre Ot V72.84 07/24/2014 GRICELDA JONES, PRADIP Oviedo Ot 250.80 07/24/2014 GRICELDA JONES, PRADIP Oviedo Ot 278.01 07/24/2014 GRICELDA JONES, PRADIP Oviedo Ot 414.01 07/24/2014 GRICELDA JONES, PRADIP Oviedo Ot 440.23 07/24/2014 GRICELDA JONES, PRADIP Oviedo Ot 459.33 07/24/2014 GRICELDA JONES, PRADIP Oviedo Ot 707.12 07/24/2014 GRICELDA JONES, PRADIP Oviedo Ot 785 .9 07/24/2014 GRICELDA JONES, PRADIP Oviedo Ot V45.82 07/24/2014 GRICELDA JONES, PRADIP Oviedo Ot 443 .9 07/24/2014 GRICELDA JONES, PRADIP Oviedo Ot 707.10 [...] 707.12 07/24/2014 GRICELDA JONES, PRADIP Oviedo Ot 785 .9 07/24/2014 GRICELDA JONES, PRADIP Oviedo Ot V45.82 07/24/2014 GRICELDA JONES, PRADIP Oviedo Ot 443 .9 07/24/2014 GRICELDA JONES, PRADIP Oviedo Ot 707.10 [...] 459.81 07/25/2014 GRICELDA JONES, PRADIP Oviedo Ot 443 .9 07/25/2014 GRICELDA JONES, PRADIP Oviedo Ot 707.10 08/01/2014 JESUS JONES, PERLA Ulrich Ot 272.4 HYPERLIPIDEMIA NEC/NOS 08/01/2014 JESUS JONES, PERLA Ulrich Ot 401.9 HYPERTENSION NOS 08/01/2014 JESUS JONES, PERLA Ulrich Ot 41 2 OLD MYOCARDIAL INFARCT 08/01/2014 JESUS JONES, PERLA S Ot 433.10 CAROTID ARTERY OCCLUSION W O CEREBRAL IN 08/01/2014 JESUS JONES, PERLA S Ot 715.90 OSTEOARTHROS NOS-UNSPEC 08/04/2014 GRICELDA JONES, PRADIP Oviedo Ot 250.80 08/04/2014 GRICELDA JONES, PRADIP Oviedo Ot 278.01 08/04/2014 GRICELDA JONES, PRADIP Oviedo Ot 414.01 08/04/2014 GRICELDA JONES, PRADIP Oviedo Ot 440.23 08/04/2014 GRICELDA JONES, PRADIP vOiedo Ot 459.33 08/04/2014 GRICELDA JONES, PRADIP Oviedo Ot 707.12 08/04/2014 GRICELDA JONES, PRADIP Oviedo Ot 785 .9 08/04/2014 GRICELDA JONES, PRADIP Oviedo Ot V45.82 [...] 707.12 08/04/2014 GRICELDA JONES, PRADIP Oviedo Ot 785 .9 08/04/2014 GRICELDA JONES, PRADIP Oviedo Ot V45.82 08/04/2014 GRICELDA JONES, PRADIP Oviedo Ot 443 .9 08/04/2014 GRICELDA JONES, PRADIP Oviedo Ot 707.10 08/04/2014 CHRISTOPHER CONTRERAS, TAMIKA Melchor Ot 250.00 08/04/2014 TAMIKA WHITE DO Ot 433.10 08/04/2014 JACKIE JONES, JESSICA Oviedo Ot 250.00 08/04/2014 JACKIE JONES, JESSICA Oviedo Ot 272.4 08/04/2014 JACKIE JONES, JESSICA Oviedo Ot 401.9 08/04/2014 JACKIE JONES, JESSICA Oviedo Ot 414.00 08/04/2014 JACKIE JONES, JESSICA Oviedo Ot 433.10 08/04/2014 JACKIE JONES, JESSICA Oviedo Ot 459.81 08/04/2014 JACKIE JONES, JESSICA Oviedo Ot 250.00 08/04/2014 JACKIE JONES, JESSICA Oviedo Ot 272.4 08/04/2014 JACKIE JONES, JESSICA Oviedo Ot 401.9 08/04/2014 JACKIE JONES, JESSICA G Ot 414.00 08/04/2014 JACKIE JONES, JESSICA Oviedo Ot 433.10 08/04/2014 JACKIE JONES, JESSICA Oviedo Ot 459.81 08/04/2014 JESUS JONES, PERLA S Ot 433.10 08/04/2014 JESUS JONES, PERLA S Ot V72.63 08/04/2014 JESUS JONES, PERLA S Ot V72.83 08/04/2014 JESUS JONES, PERLA S Ot V74.8 08/04/2014 JACKIE JONES, JESSICA Ivelisse Ot 250.00 08/04/2014 JACKIE JONES, JESSICA Oviedo Ot 272.4 08/04/2014 JACKIE JONES, JESSICA Oviedo Ot 401.9 08/04/2014 JACKIE JONES, JESSICA Oviedo Ot 414.00 08/04/2014 JACKIE JONES, JESSICA G Ot 433.10 08/04/2014 JACKIE JONES, JESSICA Oviedo Ot 459.81 08/19/2014 GRICELDA JONES, PRADIP Ivelisse Ot 250.80 08/19/2014 GRICELDA JONES, PRADIP Oviedo Ot 278.01 08/19/2014 GRICELDA JONES, PRADIP Oviedo Ot 414.01 08/19/2014 GRICELDA JONES, PRADIP Oviedo Ot 440.23 08/19/2014 GRICELDA JONES, PRADIP Oviedo Ot 459.33 08/19/2014 GRICELDA JONES, PRADIP Oviedo Ot 707.12 08/19/2014 GRICELDA JONES, PRADIP Oviedo Ot 785 .9 08/19/2014 GRICELDA JONES, PRADIP Oviedo Ot V45.82 [...] 707.12 08/19/2014 GRICELDA JONES, PRADIP Oviedo Ot 785 .9 08/19/2014 GRICELDA JONES, PRADIP Oviedo Ot V45.82 08/19/2014 GRICELDA JONES, PRADIP Oviedo Ot 443 .9 08/19/2014 GRICELDA JONES, PRADIP Oviedo Ot 707.10 08/19/2014 CHRISTOPHER CONTRERAS, TAMIKA Melchor Ot 250.00 08/19/2014 TAMIKA WHITE DO Ot [...] Oviedo Ot 272.4 08/19/2014 JACKIE JONES, JESSICA G Ot 401.9 08/19/2014 JACKIE JONES, JESSICA Ivelisse Ot 414.00 08/19/2014 JACKIE JONES, JESSICA Oviedo Ot 433.10 08/19/2014 JACKIE JONES, JESSICA G Ot 459.81 08/22/2014 CHRISTOPHER DO, TAMIKA Melchor Ot 250.00 08/22/2014 CHRISTOPHER DO, TAMIKA Melchor Ot 433.10 08/22/2014 GRICELDA JONES, PRADIP Oviedo Ot 443 .9 08/22/2014 PRADIP MADISON MD Ot 707.10 08/26/2014 [...] MADISON MD Ot 278.01 MORBID OBESITY 09/07/2014 PRADIP MADISON MD Ot 414.01 CORONARY ATHEROSCLEROSIS OF [place] CORON 09/07/2014 PRADIP MADISON MD Ot 440.23 ATHEROSCL [place] ARTER EXTREMITIES W ULC 09/07/2014 PRADIP MADISON MD Ot 459.33 CHRONIC VENOUS HYPERTEN W ULCER/INFLAMMA 09/07/2014 PRADIP MADISON MD Ot 707.12 ULCER OF CALF 09/07/2014 PRADIP MADISON MD Ot 785 .9 CARDIOVAS SYS SYMP NEC 09/07/2014 PRADIP MADISON MD Ot V45.82 PERCUTANEOUS TRANSLUM CORON ANGIOPLASTY 09/07/2014 PRADIP MADISON MD Ot V85.42 BODY MASS INDEX 45.0-49.9, ADULT 09/08/2014 Ot 786.05 09/08/2014 Ot 715.37 09/08/2014 Ot 397.0 09/08/2014 Ot 414.00 09/08/2014 Ot 424.0 09/08/2014 Ot 782.3 09/08/2014 Ot 786.09 09/08/2014 SILVA JONES, GE Casper Ot V72.84 09/08/2014 GRICELDA JONES, PRADIP Oviedo Ot 443 .9 09/08/2014 GRICELDA JONES, PRADIP Oviedo Ot 707.10 09/08/2014 CHRISTOPHER DO, TAMIKA Melchor Ot 250.00 09/08/2014 CHRISTOPHER OCNTRERAS, TAMIKA A Ot 433.10 09/08/2014 JACKIE JONES, [...] 707.12 09/08/2014 GRICELDA JONES, PRADIP Oviedo Ot 785 .9 09/08/2014 GRICELDA JONES, PRADIP Oviedo Ot V45.82 09/08/2014 GRICELDA JONES, PRADIP Oviedo Ot 250.80 09/08/2014 GRICELDA JONES, PRADIP Oviedo Ot 278.01 09/08/2014 GRICELDA JONES, PRADIP Oviedo Ot 414.01 09/08/2014 GRICELDA JONES, PRADIP Oviedo Ot 440.23 09/08/2014 GRICELDA JONES, PRADIP Oviedo Ot 459.33 09/08/2014 GRICELDA JONES, PRADIP Oviedo Ot 707.12 09/08/2014 GRICELDA JONES, PRADIP Oviedo Ot 785 .9 09/08/2014 GRICELDA JONES, PRADIP Oviedo Ot V45.82 09/08/2014 GRICELDA JONES, PRADIP Oviedo Ot 250.80 09/08/2014 GRICELDA JONES, PRADIP Oviedo Ot 278.01 09/08/2014 GRICELDA JONES, PRADIP Oviedo Ot 414.01 09/08/2014 GRICELDA JONES, PRADIP Oviedo Ot 440.23 09/08/2014 GIRCELDA JONES, PRADIP Oviedo Ot 459.33 09/08/2014 GRICELDA JONES, PRADIP Oviedo Ot 707.12 09/08/2014 GRICELDA JONES, PRADIP Oviedo Ot 785 .9 09/08/2014 GRICELDA JONES, PRADIP Oviedo Ot V45.82 09/09/2014 GRICELDA JONES, PRADIP Oviedo Ot 250.80 09/09/2014 GRICELDA JONES, PRADIP Oviedo Ot 278.01 09/09/2014 GRICELDA JONES, PRADIP Oviedo Ot 414.01 09/09/2014 GRICELDA JONES, PRADIP Oviedo Ot 440.23 09/09/2014 GRICELDA JONES, PRADIP Oviedo Ot 459.33 09/09/2014 GRICELDA JONES, PRADIP Oviedo Ot 707.12 09/09/2014 GRICELDA JONES, PRADIP Oviedo Ot 785 .9 09/09/2014 GRICELDA JONES, PRADIP Oviedo Ot V45.82 09/16/2014 GRICELDA JONES, PRADIP Oviedo Ot 250.80 09/16/2014 GRICELDA JONES, PRADIP Oviedo Ot 278.01 09/16/2014 GRICELDA JONES, PRADIP Oviedo Ot 414.01 09/16/2014 GRICELDA JONES, PRADIP Oviedo Ot 440.23 09/16/2014 GRICELDA JONES, PRADIP Oviedo Ot 459.33 09/16/2014 GRICELDA JONES, PRADIP Oviedo Ot 707.12 09/16/2014 GRICELDA JONES, PRADIP Oviedo Ot 785 .9 09/16/2014 GRICELDA JONES, PRADIP Oviedo Ot V45.82 11/03/2014 RGICELDA JONES, PRADIP Oviedo Ot 250.80 11/03/2014 GRICELDA JONES, PRADIP Oviedo Ot 278.01 11/03/2014 GRICELDA JONES, PRADIP Ivelisse Ot 414.01 11/03/2014 GRICELDA JONES, PRADIP Oviedo Ot 440.23 11/03/2014 GRICELDA JONES, PRADIP Oviedo Ot 459.33 11/03/2014 GRICELDA JONES, PRADIP Oviedo Ot 707.12 11/03/2014 GRICELDA JONES, PRADIP Oviedo Ot 785 .9 11/03/2014 GRICELDA JONES, PRADIP Oviedo Ot V45.82 11/04/2014 GRICELDA JONES, PRADIP Oviedo Ot 250.80 11/04/2014 GRICELDA JONES, PRADIP Oviedo Ot 414.01 11/04/2014 GRICELDA JONES, PRADIP Oviedo Ot 440.23 11/04/2014 GRICELDA JONES, PRADIP Oviedo Ot 459.33 11/04/2014 GRICELDA JONES, PRADIP Oviedo Ot 707.12 11/04/2014 GRICELDA JONES, PRADIP Oviedo Ot 785 .9 11/04/2014 GRICELDA JONES, PRADIP Oviedo Ot V45.82 11/06/2014 GRICELDA JONES, PRADIP Oviedo Ot 250.80 11/06/2014 GRICELDA JONES, PRADIP Oviedo Ot 278.01 11/06/2014 GRICELDA JONES, PRADIP Oviedo Ot 414.01 11/06/2014 GRICELDA JONES, PRADIP Oviedo Ot 440.23 11/06/2014 GRICELDA JONES, PRADIP Ivelisse Ot 459.33 11/06/2014 GRICELDA JONES, PRADIP Oviedo Ot 707.12 11/06/2014 GRICELDA JONES, PRADIP Oviedo Ot 785 .9 11/06/2014 GRICELDA JONES, PRADIP Oviedo Ot V45.82 11/18/2014 Ot 786.05 11/18/2014 Ot 715.37 11/18/2014 Ot 397.0 11/18/2014 Ot 414.00 11/18/2014 Ot 424.0 11/18/2014 Ot 782.3 11/18/2014 Ot 786.09 11/18/2014 SILVA JONES, GE Casper Ot V72.84 11/18/2014 GRICELDA JONES, PRADIP Oviedo Ot 443 .9 11/18/2014 GRICELDA JONES, PRADIP Oviedo Ot 707.10 11/18/2014 TAMIKA WHITE DO Ot 250.00 11/18/2014 CHRISTOPHER CONTRERAS, TAMIKA Melchor Ot 433.10 11/18/2014 JACKIE JONES, JESSICA Ivelisse Ot 250.00 11/18/2014 JACKIE JONES, JESSICA Oviedo Ot 272.4 11/18/2014 JACKIE JONES, JESSICA Oviedo Ot 401.9 11/18/2014 JACKIE JONES, JESSICA Oviedo Ot 414.00 11/18/2014 JACKIE JONES, JESSICA G Ot 433.10 11/18/2014 JACKIE JONES, JESSICA G Ot 459.81 11/18/2014 JACKIE JONES, JESSICA Oviedo Ot 250.00 11/18/2014 JACKIE JONES, JESSICA Oviedo Ot 272.4 11/18/2014 JACKIE JONES, JESSICA Oviedo Ot 401.9 11/18/2014 JACKIE JONES, JESSICA Oviedo [...] 707.12 11/18/2014 GRICELDA JONES, PRADIP Oviedo Ot 785 .9 11/18/2014 GRICELDA JONES, PRADIP Oviedo Ot V45.82 11/18/2014 GRICELDA JONES, PRADIP Oviedo Ot 250.80 11/18/2014 GRICELDA JONES, PRADIP Oviedo Ot 414.01 11/18/2014 GRICELDA JONES, PRADIP Oviedo Ot 440.23 11/18/2014 GRICELDA JONES, PRADIP Oviedo Ot 459.33 11/18/2014 GRICELDA JONES, PRADIP Oviedo Ot 707.12 11/18/2014 GRICELDA JONES, PRADIP Oviedo Ot 785 .9 11/18/2014 PRADIP MADISON MD Ot V45.82 12/03/2014 PRADIP MADISON MD Ot 250.80 DIAB W OTH SPEC MANIFEST, TYPE II OR UNS 12/03/2014 PRADIP MADISON MD Ot 278.01 MORBID OBESITY 12/03/2014 PRADIP MADISON MD Ot 414.01 CORONARY ATHEROSCLEROSIS OF [place] CORON 12/03/2014 PRADIP MADISON MD Ot 440.23 ATHEROSCL [place] ARTER EXTREMITIES W ULC 12/03/2014 PRADIP MADISON MD Ot 457 .1 OTHER LYMPHEDEMA 12/03/2014 PRADIP MADISON MD Ot 459.33 CHRONIC VENOUS HYPERTEN W ULCER/INFLAMMA 12/03/2014 PRADIP MADISON MD Ot 707.12 ULCER OF CALF 12/03/2014 PRADIP MADISON MD Ot 785 .9 CARDIOVAS SYS SYMP NEC 12/03/2014 PRADIP MADISON MD Ot V45.82 PERCUTANEOUS TRANSLUM CORON ANGIOPLASTY 12/03/2014 PRADIP MADISON MD Ot V85.42 BODY MASS INDEX 45.0-49.9, ADULT 12/08/2014 PRADIP MADISON MD Ot 250.80 12/08/2014 PRADIP MADISON MD Ot 278.01 12/08/2014 GRICELDA JONES, PRADIP Oviedo Ot 414.01 12/08/2014 PRADIP MADISON MD Ot 440.23 12/08/2014 PRADIP MADISON MD Ot 459.33 12/08/2014 PRADIP MADISON MD Ot 707.12 12/08/2014 PRADIP MADISON MD Ot 785 .9 12/08/2014 PRADIP MADISON MD Ot V45.82 12/10/2014 PRADIP MADISON MD Ot 443 .9 12/10/2014 PRADIP MADISON MD Ot 457 .1 12/10/2014 PRADIP MADISON MD Ot 707.12 12/19/2014 Ot 786.05 12/19/2014 Ot 715.37 12/19/2014 Ot 397.0 12/19/2014 Ot 414.00 12/19/2014 Ot 424.0 12/19/2014 Ot 782.3 12/19/2014 Ot 786.09 12/19/2014 SILVA JONES, GE Casper Ot V72.84 12/19/2014 PRADIP MADISON MD Ot 443 .9 12/19/2014 GRICELDA JONES, PRADIP Oviedo Ot 707.10 12/19/2014 TAMIKA WHITE DO Ot 250.00 12/19/2014 TAMIKA WHITE DO Ot 433.10 12/19/2014 JACKIE JONES, JESSICA G Ot 250.00 12/19/2014 JACKIE JONES, JESSICA Oviedo Ot 272.4 12/19/2014 JACKIE JONES, JESSICA Oviedo Ot 401.9 12/19/2014 JACKIE JONES, JESSICA Oviedo Ot 414.00 12/19/2014 JACKIE JONES, JESSICA Oviedo Ot 433.10 12/19/2014 JACKIE JONES, JESSICA Oviedo Ot 459.81 12/19/2014 JACKIE JONES, JESSICA Oviedo Ot 250.00 12/19/2014 JACKIE JONES, JESSICA Oviedo Ot 272.4 12/19/2014 JACKIE JONES, JESSICA Oviedo [...] 707.12 12/19/2014 GRICELDA JONES, PRADIP Oviedo Ot 785 .9 12/19/2014 GRICELDA JONES, PRADIP Oviedo Ot V45.82 12/19/2014 GRICELDA JONES, PRADIP Oviedo Ot 443 .9 12/19/2014 GRICELDA JONES, PRADIP Oviedo Ot 457 .1 12/19/2014 GRICELDA JONES, PRADIP Oviedo Ot 707.12 12/19/2014 TAMIKA WHITE DO Ot 786.05 12/19/2014 GRICELDA JONES, PRADIP Oviedo Ot 250.80 12/19/2014 GRICELDA JONES, PRADIP Oviedo Ot 278.01 12/19/2014 GRICELDA JONES, PRADIP Oviedo Ot 414.01 12/19/2014 GRICELDA JONES, PRADIP Oviedo Ot 440.23 12/19/2014 GRICELDA JONES, PRADIP Oviedo Ot 459.33 12/19/2014 GRICELDA JONES, PRADIP Oviedo Ot 707.12 12/19/2014 GRICELDA JONES, PRADIP Oviedo Ot 785 .9 12/19/2014 GRICELDA JONES, PRADIP Oviedo Ot V45.82 12/22/2014 [facility], TAMIKA Jill Ot 786.05 12/22/2014 GRICELDA JONES, PRADIP Oviedo Ot 443 .9 12/22/2014 GRICELDA JONES, PRADIP Oviedo Ot 457 .1 12/22/2014 GRICELDA JONES, PRADIP Oviedo Ot 707.12 12/22/2014 [facility] B95.1 STREPTOCOCCUS, GROUP B, CAUSING DISEASES 12/22/2014 TAMIKA WHITE DO Ot 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 12/22/2014 [facility] E11.65 TYPE 2 DIABETES MELLITUS WITH HYPERGLYCE 12/22/2014 [facility] TAMIKA CONTRERAS Ot E66.01 MORBID (SEVERE) OBESITY DUE TO EXCESS CA 12/22/2014 TAMIKA WHITE DO Ot E86.0 DEHYDRATION 12/22/2014 TAMIKA WHITE DO Ot E87.1 HYPO-OSMOLALITY AND HYPONATREMIA 12/22/2014 TAMIKA WHITE DO Ot E87.5 HYPERKALEMIA 12/22/2014 TAMIKA WHITE DO Ot G62.9 POLYNEUROPATHY, UNSPECIFIED 12/22/2014 TAMIKA WHITE DO Ot I12.9 HYPERTENSIVE CHRONIC KIDNEY DISEASE W ST 12/22/2014 TAMIKA WHITE DO Ot I25.10 ATHSCL HEART DISEASE OF [place] CORONARY 12/22/2014 TAMIKA WHITE DO Ot I25.2 [...] ADULT 12/22/2014 TAMIKA WHITE DO Ot Z79.4 ALF (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 OF INSULIN 12/22/2014 TAMIKA WHITE DO Ot Z95.5 PRESENCE OF CORONARY ANGIOPLASTY IMPLANT 12/28/2014 PRADIP MADISON MD Ot 250.80 12/28/2014 PRADIP MADISON MD Ot 278.01 12/28/2014 PRADIP MADISON MD Ot 414.01 12/28/2014 PRADIP MADISON MD Ot 440.23 12/28/2014 PRADIP MADISON MD Ot 459.33 12/28/2014 PRADIP MADISON MD Ot 707.12 12/28/2014 PRADIP MADISON MD Ot 785 .9 12/28/2014 PRADIP MADISON MD Ot V45.82 12/29/2014 CHRISTOPHER CONTRERAS TAMIKA Jill Ot 786.05 02/02/2015 CAROL MARTINEZ MD Ot E78. 2 02/02/2015 CAROL MARTINEZ MD Ot I10 02/02/2015 CAROL MARTINEZ MD Ot I25. 10 02/02/2015 CAROL MARTINEZ MD Ot R06. 02 02/05/2015 CAROL MARTINEZ MD Ot E78. 2 02/05/2015 CAROL MARTINEZ MD Ot I10 02/05/2015 CAROL MARTINEZ MD Ot I25. 10 02/05/2015 CAROL MARTINEZ MD Ot R06. 02 02/24/2015 PRADIP MADISON MD Ot E11.622 02/24/2015 PRADIP MADISON MD Ot G47.33 02/24/2015 PRADIP MADISON MD Ot I87.331 02/24/2015 PRADIP MADISON MD Ot L97.212 02/24/2015 PRADIP MADISON MD Ot M16 .9 02/24/2015 PRADIP MADISON MD Ot M17 .9 02/24/2015 GRICELDA JONES, PRADIP Oviedo Ot R53 .1 02/25/2015 PRASHANTH SPEAR APRN Ot G47.33 OBSTRUCTIVE SLEEP APNEA (ADULT) (PEDIATR 02/25/2015 PRASHANTH SPEAR APRN Ot G47.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 02/25/2015 GRICELDA JONES, PRADIP Oviedo Ot E11.622 02/25/2015 GRICELDA JONES, PRADIP Oviedo Ot G47.33 02/25/2015 GRICELDA JONES, PRADIP Oviedo Ot I87.331 02/25/2015 GRICELDA JONES, PRADIP Oviedo Ot L97.212 02/25/2015 GRICELDA JONES, PRADIP Oviedo Ot M16 .9 02/25/2015 GRICELDA JONES, PRADIP Oviedo Ot M17 .9 02/25/2015 GRICELDA JONES, PRADIP Oviedo Ot R53 .1 03/08/2015 GRICELDA JONES, PRADIP Oviedo Ot E11.622 TYPE 2 DIABETES MELLITUS WITH OTHER SKIN 03/08/2015 GRICELDA JONES, PRADIP Oviedo Ot G47.33 OBSTRUCTIVE SLEEP APNEA (ADULT) (PEDIATR 03/08/2015 GRICELDA JONES, PRADIP Oviedo Ot 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 03/08/2015 GRICELDA JONES, PRADIP Oviedo Ot L97.212 NON-PRESSURE CHRONIC ULCER OF RIGHT CALF 03/08/2015 GRICELDA JONES, PRADIP Oviedo Ot M16 .9 OSTEOARTHRITIS OF HIP, UNSPECIFIED 03/08/2015 GRICELDA JONES, PRADIP Oviedo Ot M17 .9 OSTEOARTHRITIS OF KNEE, UNSPECIFIED 03/08/2015 GRICELDA JONES, PRADIP Oviedo Ot R53 .1 WEAKNESS 03/09/2015 GRICELDA JONES, PRADIP Oviedo Ot E11.622 03/09/2015 GRICELDA JONES, PRADIP Ovieod Ot G47.33 03/09/2015 GRICELDA JONES, PRADIP Oviedo Ot I87.331 03/09/2015 GRICELDA JONES, PRADIP Oviedo Ot L97.212 03/09/2015 GRICELDA JONES, PRADIP Oviedo Ot M16 .9 03/09/2015 GRICELDA JONES, PRADIP Oviedo Ot M17 .9 03/09/2015 GRICELDA JONES, PRADIP Oviedo Ot R53 .1 03/10/2015 GRICELDA JONES, PRADIP Oviedo Ot 250.80 03/10/2015 GRICELDA JONES, PRADIP Oviedo Ot 327.23 03/10/2015 GRICELDA JONES, PRADIP Oviedo Ot 459.33 03/10/2015 GRICELDA JONES, PRADIP G Ot 707.12 03/10/2015 GRICELDA JONES, PRADIP G Ot 715.35 03/10/2015 GRICELDA JONES, PRADIP G Ot 780.79 03/10/2015 GRICELDA JONES, PRADIP G Ot E11.622 03/10/2015 GRICELDA JONES, PRADIP Oviedo Ot G47.33 03/10/2015 GRICELDA JONES, PRADIP Oviedo Ot I87.331 03/10/2015 GRICELDA JONES, PRADIP Oviedo Ot L97.212 03/10/2015 GRICELDA JONES, PRADIP G Ot M16 .9 03/10/2015 GRICELDA JONES, PRADIP G Ot M17 .9 03/10/2015 GRICELDA JONES, PRADIP G Ot R53 .1 05/01/2015 GRICELDA JONES, PRADIP G Ot 250.80 05/01/2015 GRICELDA JONES, PRADIP G Ot 327.23 05/01/2015 GRICELDA JONES, PRADIP Oviedo Ot 459.33 05/01/2015 GRICELDA JONES, PRADIP Oviedo Ot 707.12 05/01/2015 GRICELDA JONES, PRADIP G Ot 715.35 05/01/2015 GRICELDA JONES, PRADIP G Ot 780.79 05/01/2015 GRICELDA JONES, PRADIP Oviedo Ot E11.622 05/01/2015 GRICELDA JONES, PRADIP Oviedo Ot G47.33 05/01/2015 GRICELDA JONES, PRADIP Oviedo Ot I87.331 05/01/2015 GRICELDA JONES, PRADIP Oviedo Ot L97.212 05/01/2015 GRICELDA JONES, PRADIP Oviedo Ot M16 .9 05/01/2015 GRICELDA JONES, PRADIP Oviedo Ot M17 .9 05/01/2015 GRICELDA JONSE, PRADIP G Ot R53 .1 05/07/2015 GRICELDA JONES, PRADIP G Ot 250.80 05/07/2015 GRICELDA JONES, PRADIP G Ot 327.23 05/07/2015 GRICELDA JONES, PRADIP G Ot 459.33 05/07/2015 GRICELAD JONES, PRADIP G Ot 707.12 05/07/2015 GRICELDA JONES, PRADIP G Ot 715.35 05/07/2015 GRICELDA JONES, PRADIP G Ot 780.79 05/07/2015 GRICELDA JONES, PRADIP G Ot E11.622 05/07/2015 GRICELDA JONES, PRADIP Oviedo Ot G47.33 05/07/2015 GRICELDA JONES, PRADIP G Ot I87.331 05/07/2015 PRADIP MADISON MD Ot L97.212 05/07/2015 GRICELDA JONES, PRADIP Oviedo Ot M16 .9 05/07/2015 GRCIELDA JONES, PRADIP Oviedo Ot M17 .9 05/07/2015 GRICELDA JONES, PRADIP Oviedo Ot R53 .1 05/11/2015 PRADIP MADISON MD Ot E11.622 TYPE 2 DIABETES MELLITUS WITH OTHER SKIN 05/11/2015 GRICELDA JONES, PRADIP Oviedo Ot G47.33 OBSTRUCTIVE SLEEP APNEA (ADULT) (PEDIATR 05/11/2015 GRICELDA JONES, PRADIP Oviedo Ot 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 05/11/2015 GRICELDA JONES, PRADIP Oviedo Ot L97.212 NON-PRESSURE CHRONIC ULCER OF RIGHT CALF 05/11/2015 GRICELDA JONES, PRADIP Oviedo Ot M16 .9 OSTEOARTHRITIS OF HIP, UNSPECIFIED 05/11/2015 GRICELDA JONES, PRADIP Oviedo Ot M17 .9 OSTEOARTHRITIS OF KNEE, UNSPECIFIED 05/11/2015 GRICELDA JONES, PRADIP Oviedo Ot R53 .1 WEAKNESS 05/13/2015 Ot 715.37 05/13/2015 Ot 397.0 05/13/2015 Ot 414.00 05/13/2015 Ot 424.0 05/13/2015 Ot 782.3 05/13/2015 Ot 786.09 05/13/2015 SILVA JONES, GE Casper Ot V72.84 05/13/2015 GRICELDA JONES, PRADIP Ov[place]o Ot 443 .9 05/13/2015 GRICELDA JONES, PRADIP Oviedo Ot 707.10 [...] Oviedo Ot 272.4 05/13/2015 JACKIE JONES, JESSICA Ivelisse Ot 401.9 05/13/2015 JACKIE JONES, JESSICA Ivelisse Ot 414.00 05/13/2015 JACKIE JONES, JESSICA Ivelisse Ot 433.10 05/13/2015 JACKIE JONES, JESSICA Ivelisse Ot 459.81 05/13/2015 JESUS JONES, PERLA S [...] 707.12 05/13/2015 GRICELDA JONES, PRADIP Oviedo Ot 785 .9 05/13/2015 GRICELDA JONES, PRADIP Oviedo Ot V45.82 05/13/2015 GRICELDA JONES, PRADIP Oviedo Ot 443 .9 05/13/2015 GRICELDA JONES, PRADIP Oviedo Ot 457 .1 05/13/2015 GRICELDA JONES, PRADIP Oviedo Ot 707.12 05/13/2015 TAMIKA WHITE DO Ot 786.05 05/13/2015 MICHELLE JONES, CAROL Recio Ot E78. 2 05/13/2015 MICHELLE JONES, CAROL Recio Ot I10 05/13/2015 MICHELLE JONES, CAROL Recio Ot I25. 10 05/13/2015 MICHELLE JONES, CAROL Recio Ot R06. 02 05/13/2015 GRICELDA JONES, PRADIP Oviedo Ot 250.80 [...] L97.212 05/13/2015 GRICELDA JONES, PRADIP Oviedo Ot M16 .9 05/13/2015 GRICELDA JONES, PRADIP Oviedo Ot M17 .9 05/13/2015 GRICELDA JONES, PRADIP Oviedo Ot R53 .1 05/16/2015 GELLENDER DO, TAMIKA Melchor Ot E11.621 [...] TAMIKA Melchor Ot L97.219 05/18/2015 GELLENDER DO, TAMIKA Melchor Ot L97.519 05/18/2015 GELLENDER DO, TAMIKA Melchor Ot N28.9 05/18/2015 GELLENDER DO, TAMIKA Melchor Ot R11.10 05/18/2015 GELLENDER DO, TAMIKA Melchor Ot Z68.43 05/18/2015 GELLENDER DO, TAMIKA Melchor Ot Z79.4 05/18/2015 GELLENDER DO, TAMIKA Melchor Ot Z95.5 05/18/2015 GELLENDER DO, TAMIKA Melchor Ot E11.621 05/18/2015 GELLENDER DO, TAMIKA Melchor Ot E66.9 05/18/2015 GELLENDER DO, TAMIKA Melchor Ot I25.10 05/18/2015 GELLENDER DO, TAMIKA Melchor Ot I25.2 05/18/2015 GELLENDER DO, TAMIKA Melchor Ot J18.9 05/18/2015 GELLENDER DO, TAMIKA Melchor Ot K21.9 05/18/2015 GELLENDER DO, TAMIKA Melchor Ot L97.219 05/18/2015 GELLENDER DO, TAMIKA Melchor Ot L97.519 05/18/2015 GELLENDER DO, TAMIKA [...] Melchor Ot N28.9 05/19/2015 GELLENDER DO, TAMIKA A Ot R11.10 05/19/2015 GELLENDER DO, TAMIKA Melchor Ot Z68.43 05/19/2015 GELLENDER DO, TAMIKA Melchor Ot Z79.4 05/19/2015 GELLENDER DO, TAMIKA Melchor Ot Z95.5 05/19/2015 [...] Melchor Ot Z79.4 05/20/2015 GELLENDER DO, TAMIKA Melchor Ot Z95.5 05/21/2015 [...] Melchor Ot E11.621 05/21/2015 GELLENDER DO, TAMIKA Jill Ot E66.9 05/21/2015 GELLENDER DO, TAMIKA Jill Ot I25.10 05/21/2015 GELLENDER DO, TAMIKA Jill Ot I25.2 05/21/2015 GELLENDER DO, TAMIKA Melchor [...] Melchor Ot Z95.5 05/21/2015 GELLENDER DO, TAMIKA Jill Ot D64.9 ANEMIA, UNSPECIFIED 05/21/2015 GELLENDER DO, TAMIKA Melchor Ot E11.621 TYPE 2 DIABETES MELLITUS WITH FOOT ULCER 05/21/2015 GELLENDER DO, TAMIKA Melchor Ot E66.9 OBESITY, UNSPECIFIED 05/21/2015 GELLENDER DO, TAMIKA Melchor Ot I10 ESSENTIAL (PRIMARY) HYPERTENSION 05/21/2015 GELLENDER DO, TAMIKA Melchor Ot I25.10 ATHSCL HEART DISEASE OF [place] CORONARY 05/21/2015 GELLENDER DO, TAMIKA Melchor Ot I25.2 OLD MYOCARDIAL INFARCTION 05/21/2015 GELLENDER DO, TAMIKA Melchor Ot J18.9 PNEUMONIA, UNSPECIFIED ORGANISM 05/21/2015 GELLENDER DO, TAMIKA Melchor Ot K21.9 GASTRO-ESOPHAGEAL REFLUX DISEASE WITHOUT 05/21/2015 GELLENDER DO, TAMIKA Jill Ot 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 05/21/2015 GELLENDER DO, TAMIKA Jill Ot L97.519 NON-PRS CHRONIC ULCER OTH PRT RIGHT FOOT 05/21/2015 GELLENDER DO, TAMIKA Jill Ot N28.9 DISORDER OF KIDNEY AND URETER, UNSPECIFI 05/21/2015 GELLENDER DO, TAMIKA Jill Ot R11.10 VOMITING, UNSPECIFIED 05/21/2015 GELLENDER DO, TAMIKA Jill Ot Z68.43 BODY MASS INDEX (BMI) 50-59.9 , ADULT 05/21/2015 GELLENDER DO, TAMIKA Melchor Ot 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 05/21/2015 GELLENDER DO, [...] Melchor Ot N18.9 05/26/2015 GELLENDER DO, TAMIKA Melchor [...] Melchor Ot Z95.5 05/26/2015 GELLENDER DO, TAMIKA A Ot E11.9 05/26/2015 GELLENDER DO, TAMIKA Melchor [...] Melchor Ot Z95.5 05/26/2015 GELLENDER DO, TAMIKA A Ot E11.9 05/26/2015 GELLENDER DO, TAMIKA Melchor [...] Melchor Ot Z79.4 05/26/2015 GELLENDER DO, TAMIKA A Ot Z95.5 05/27/2015 GELLENDER DO, TAMIKA Melchor Ot E11.9 05/27/2015 GELLENDER DO, TAMIKA Melchor Ot E87.70 05/27/2015 GELLENDER DO, TAMIKA Melchor Ot I25.10 05/27/2015 GELLENDER DO, TAMIKA Melchor Ot I25.2 05/27/2015 GELLENDER DO, TAMIKA Melchor Ot J18.9 05/27/2015 GELLENDER DO, TAMIKA Melchor Ot J81.1 05/27/2015 GELLENDER DO, TAMIKA Melchor Ot K21.9 05/27/2015 GELLENDER DO, TAMIKA Melchor Ot N17.9 05/27/2015 GELLENDER DO, TAMIKA A Ot N18.9 05/27/2015 GELLENDER DO, TAMIKA Melchor Ot Z79.4 05/27/2015 GELLENDER DO, TAMIKA Melchor Ot Z95.5 05/27/2015 GELLENDER DO, TAMIKA A Ot E11.9 05/27/2015 GELLENDER DO, TAMIKA Melchor [...] Melchor Ot I25.2 05/27/2015 GELLENDER DO, TAMIKA A Ot J18.9 05/27/2015 GELLENDER DO, TAMIKA A Ot J81.1 05/27/2015 GELLENDER DO, TAMIKA Melchor Ot K21.9 05/27/2015 GELLENDER DO, TAMIKA A Ot N17.9 05/27/2015 GELLENDER DO, TAMIKA A Ot N18.9 05/27/2015 GELLENDER DO, TAMIKA Melchor Ot Z79.4 05/27/2015 GELLENDER DO, TAMIKA Melchor Ot Z95.5 05/28/2015 GELLENDER DO, TAMIKA Melchor Ot E11.9 05/28/2015 GELLENDER DO, TAMIKA Jill Ot E87.70 05/28/2015 GELLENDER DO, TAMIKA Jill Ot I25.10 05/28/2015 GELLENDER DO, TAMIKA Jill Ot I25.2 05/28/2015 GELLENDER DO, TAMIKA Melchor Ot J18.9 05/28/2015 GELLENDER DO, TAMIKA Melchor Ot J81.1 05/28/2015 GELLENDER DO, TAMIKA Jill Ot K21.9 05/28/2015 GELLENDER DO, TAMIKA Jill Ot N17.9 05/28/2015 GELLENDER DO, TAMIKA Melchor Ot N18.9 05/28/2015 GELLENDER DO, TAMIKA Melchor Ot Z79.4 05/28/2015 GELLENDER DO, TAMIKA Melchor Ot Z95.5 05/28/2015 GELLENDER DO, TAMIKA Melchor Ot D64.9 ANEMIA, UNSPECIFIED 05/28/2015 GELLENDER DO, TAMIKA Melchor Ot E11.9 TYPE 2 DIABETES MELLITUS WITHOUT COMPLIC 05/28/2015 GELLENDER DO, TAMIKA Melchor Ot E66.9 OBESITY, UNSPECIFIED 05/28/2015 GELLENDER DO, TAMIKA Melchor Ot E83.42 HYPOMAGNESEMIA 05/28/2015 GELLENDER DO, TAMIKA Melchor Ot E87.70 05/28/2015 GELLENDER DO, TAMIKA Melchor Ot G47.33 OBSTRUCTIVE SLEEP APNEA (ADULT) (PEDIATR 05/28/2015 GELLENDER DO, TAMIKA Melchor Ot I25.10 ATHSCL HEART DISEASE OF [place] CORONARY 05/28/2015 GELLENDER DO, TAMIKA Melchor Ot I25.2 OLD MYOCARDIAL INFARCTION 05/28/2015 GELLENDER DO, TAMIKA Melchor Ot I48.92 UNSPECIFIED ATRIAL FLUTTER 05/28/2015 GELLENDER DO, TAMIKA Melchor Ot I50.20 05/28/2015 GELLENDER DO, TAMIKA Melchor Ot I50.9 HEART FAILURE, UNSPECIFIED 05/28/2015 GELLENDER DO, TAMIKA Melchor Ot I87.2 VENOUS INSUFFICIENCY (CHRONIC) (PERIPHER 05/28/2015 GELLENDER DO, TAMIKA Melchor Ot I95.9 [...] K21.9 GASTRO-ESOPHAGEAL REFLUX DISEASE WITHOUT 05/28/2015 GELLENDER DOTAMIKA Ot 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 05/28/2015 GELLENDER DO, TAMIKA Melchor Ot N17.9 05/28/2015 GELLENDER DO, TAMIKA Melchor Ot N18.9 CHRONIC KIDNEY DISEASE, UNSPECIFIED 05/28/2015 GELLENDER DO, TAMIKA Melchor Ot R00.0 TACHYCARDIA, UNSPECIFIED 05/28/2015 GELLENDER DO, TAMIKA Melchor Ot R19.7 DIARRHEA, UNSPECIFIED 05/28/2015 GELLENDER DO, TAMIKA Melchor Ot Z68.43 BODY MASS INDEX (BMI) 50-59.9 , ADULT 05/28/2015 CHRISTOPHER CONTRERAS, TAMIKA Melchor Ot Z79.4 ALF (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 OF INSULIN 05/28/2015 GELLENDER DO, TAMIKA Melchor Ot Z95.5 PRESENCE OF CORONARY ANGIOPLASTY IMPLANT 05/28/2015 Ot 715.37 05/28/2015 Ot 397.0 05/28/2015 Ot 414.00 05/28/2015 Ot 424.0 05/28/2015 Ot 782.3 05/28/2015 Ot 786.09 05/28/2015 SILVA JONES, GE Casper Ot V72.84 05/28/2015 GRICELDA JONES, PRADIP Oviedo Ot 443 .9 05/28/2015 GRICELDA JONES, PRADIP Oviedo Ot 707.10 [...] Oviedo Ot 272.4 05/28/2015 JACKIE JONES, JESSICA Ivelisse Ot 401.9 05/28/2015 JACKIE JONES, JESSICA Ivelisse Ot 414.00 05/28/2015 JACKIE JONES, JESSICA G Ot 433.10 05/28/2015 JACKIE JONES, JESSICA Ivelisse Ot 459.81 05/28/2015 JESUS JONES, PERLA S [...] 707.12 05/28/2015 GRICELDA JONES, PRADIP Oviedo Ot 785 .9 05/28/2015 GRICELDA JONES, PRADIP Oviedo Ot V45.82 05/28/2015 GRICELDA JONES, PRADIP Oviedo Ot 443 .9 05/28/2015 GRICELDA JONES, PRADIP Oviedo Ot 457 .1 05/28/2015 GRICELDA JONES, PRADIP Oviedo Ot 707.12 05/28/2015 TAMIKA WHITE DO Ot 786.05 05/28/2015 MICHELLE JONES, CAROL Recio Ot E78. 2 05/28/2015 MICHELLE JONES, CAROL Recio Ot I10 05/28/2015 MICHELLE JONES, CAROL Recio Ot I25. 10 05/28/2015 MICHELLE JONES, CAROL Recio Ot R06. 02 05/28/2015 GRICELDA JONES, PRADIP Oviedo Ot 250.80 [...] L97.212 05/28/2015 GRICELDA JONES, PRADIP Oviedo Ot M16 .9 05/28/2015 GRICELDA JONES, PRADIP Oviedo Ot M17 .9 05/28/2015 GRICELDA JONES, PRADIP Oviedo Ot R53 .1 06/10/2015 AIDAN JONES, MARÍA E Ot D64.9 06/10/2015 AIDAN JONES, MARÍA E Ot E11.9 06/10/2015 AIDAN JONES, MARÍA E Ot E66.9 06/10/2015 AIDAN JONES, MARÍA E Ot G47.3 3 06/10/2015 AIDAN JONES, MARÍA E Ot H91.1 0 06/10/2015 AIDAN JONES, MARÍA E Ot I25.1 0 06/10/2015 AIDAN JONES, MARÍA E Ot I25.2 06/10/2015 AIDAN JONES, MARÍA E Ot I48.9 1 06/10/2015 AIDAN JONES, MARÍA E Ot I50.9 06/10/2015 AIDAN JONES, MARÍA E Ot I87.2 06/10/2015 AIDAN JONES, MARÍA E Ot J18.9 06/10/2015 AIDAN JONES, MARÍA E Ot K21.9 06/10/2015 AIDAN JONES, MARÍA E Ot L97.2 19 06/10/2015 AIDAN JONES, MARÍA E Ot M19.9 0 06/10/2015 AIDAN JONES, MARÍA E Ot N18.9 06/10/2015 AIDAN JONES, MARÍA E Ot R32 06/10/2015 AIDAN JONES, MARÍA E Ot Z68.4 3 06/10/2015 AIDAN JONES, MARÍA E Ot Z79.4 06/10/2015 AIDAN JONES, MARÍA E Ot Z95.5 06/11/2015 AIDAN JONES, MARÍA E Ot D64.9 06/11/2015 AIDAN JONES, MARÍA E Ot E11.9 06/11/2015 AIDAN JONES, MARÍA E Ot E66.9 06/11/2015 AIDAN JONES, MARÍA E Ot G47.3 3 06/11/2015 AIDAN JONES, MARÍA E Ot H91.1 0 06/11/2015 AIDAN JONES MARÍA E Ot I25.1 0 06/11/2015 AIDAN JONES MARÍA E Ot I25.2 06/11/2015 AIDAN JONES MARÍA E Ot I48.9 1 06/11/2015 AIDAN JONES MARÍA E Ot I50.9 06/11/2015 AIDAN JONES MARÍA E Ot I87.2 06/11/2015 AIDAN JONES MARÍA E Ot J18.9 06/11/2015 AIDAN JONES MARÍA E Ot K21.9 06/11/2015 AIDAN JONES MARÍA E Ot L97.2 19 06/11/2015 AIDAN JONES MARÍA E Ot M19.9 0 06/11/2015 AIDAN JONES MARÍA E Ot N18.9 06/11/2015 AIDAN JONES MARÍA E Ot R32 06/11/2015 AIDAN JONES MARÍA E Ot Z68.4 3 06/11/2015 AIDAN JONES MARÍA E Ot Z79.4 06/11/2015 AIDAN JONES MARÍA E Ot Z95.5 06/11/2015 AIDAN JONES MARÍA E Ot D64.9 ANEMIA, UNSPECIFIED 06/11/2015 AIDAN JONES MARÍA E Ot E11.9 TYPE 2 DIABETES MELLITUS WITHOUT COMPLIC 06/11/2015 AIDAN JONES MARÍA E Ot E66.9 OBESITY, UNSPECIFIED 06/11/2015 AIDAN JONES MARÍA E Ot G47.3 3 OBSTRUCTIVE SLEEP APNEA (ADULT) (PEDIATR 06/11/2015 AIDAN JONES MARÍA E Ot H91.1 0 PRESBYCUSIS, UNSPECIFIED EAR 06/11/2015 AIDAN JONES MARÍA E Ot I25.1 0 ATHSCL HEART DISEASE OF [place] CORONARY 06/11/2015 AIDAN JONES MARÍA E Ot I25.2 OLD MYOCARDIAL INFARCTION 06/11/2015 AIDAN JONES MARÍA E Ot I48.9 1 UNSPECIFIED ATRIAL FIBRILLATION 06/11/2015 MARÍA BERMUDEZ MD E Ot I50.9 HEART FAILURE, UNSPECIFIED 06/11/2015 AIDAN JONES MARÍA E Ot I87.2 VENOUS INSUFFICIENCY (CHRONIC) (PERIPHER 06/11/2015 AIDAN JONES MARÍA E Ot I95.9 HYPOTENSION, UNSPECIFIED 06/11/2015 MARÍA BERMUDEZ MD E Ot J18.9 PNEUMONIA, UNSPECIFIED ORGANISM 06/11/2015 AIDAN JONES MARÍA E Ot K21.9 GASTRO-ESOPHAGEAL REFLUX DISEASE WITHOUT 06/11/2015 MARÍA BERMUDEZ MD Ot L89.6 12 PRESSURE ULCER OF RIGHT HEEL, STAGE 2 06/11/2015 MARÍA BERMUDEZ MD Ot L97.2 19 NON-PRESSURE CHRONIC ULCER OF RIGHT CALF 06/11/2015 MARÍA BERMUDEZ MD Ot M19.9 0 UNSPECIFIED OSTEOARTHRITIS, UNSPECIFIED 06/11/2015 MARÍA BERMUDEZ MD Ot N18.9 CHRONIC KIDNEY DISEASE, UNSPECIFIED 06/11/2015 MARÍA BERMUDEZ MD Ot R00.1 BRADYCARDIA, UNSPECIFIED 06/11/2015 MARÍA BERMUDEZ MD E Ot R32 UNSPECIFIED URINARY INCONTINENCE 06/11/2015 MARÍA BERMUDEZ MD Ot Z68.4 3 BODY MASS INDEX (BMI) 50-59.9 , ADULT 06/11/2015 MARÍA BERMUDEZ MD Ot Z79.4 ALF (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 OF INSULIN 06/11/2015 MARÍA BERMUDEZ MD Ot Z95.5 PRESENCE OF CORONARY ANGIOPLASTY IMPLANT 06/12/2015 GELLENDER DO, TAMIKA Melchor Ot D63.8 06/12/2015 GELLENDER DO, TAMIKA A Ot E11.9 06/12/2015 GELLENDER DO, TAMIKA A Ot E66.9 06/12/2015 GELLENDER DO, TAMIKA Melchor Ot E78.5 06/12/2015 GELLENDER DO, TAMIKA Melchor Ot E87.70 06/12/2015 GELLENDER DO, TAMIKA Melchor Ot I12.9 06/12/2015 GELLENDER DO, TAMIKA A Ot I25.10 06/12/2015 GELLENDER DO, TAMIKA A Ot I48.92 06/12/2015 GELLENDER DO, TAMIKA A Ot I49.5 06/12/2015 GELLENDER DO, TAMIKA A Ot K21.9 06/12/2015 GELLENDER DO, TAMIKA A Ot L89.612 06/12/2015 GELLENDER DO, TAMIKA A Ot N17.9 06/12/2015 GELLENDER DO, TAMIKA A Ot N18.9 06/12/2015 GELLENDER DO, TAMIKA Melchor Ot R53.81 06/12/2015 GELLENDER DO, TAMIKA Melchor Ot Z68.43 06/12/2015 GELLENDER DO, TAMIKA Melchor Ot Z91.81 06/12/2015 GELLENDER DO, TAMIKA Melchor Ot Z95.5 06/13/2015 GELLENDER DO, TAMIKA A Ot D63.8 06/13/2015 GELLENDER DO, TAMIKA A Ot E11.9 06/13/2015 GELLENDER DO, TAMIKA A Ot E66.9 06/13/2015 GELLENDER DO, TAMIKA A Ot E78.5 06/13/2015 GELLENDER DO, TAMIKA A Ot E87.70 06/13/2015 GELLENDER DO, TAMIKA A Ot I12.9 06/13/2015 GELLENDER DO, TAMIKA A Ot I25.10 06/13/2015 GELLENDER DO, TAMIKA A Ot I48.92 06/13/2015 GELLENDER DO, TAMIKA A Ot I49.5 06/13/2015 GELLENDER DO, TAMIKA Melchor Ot K21.9 06/13/2015 GELLENDER DO, TAMIKA Melchor Ot L89.612 06/13/2015 GELLENDER DO, TAMIKA Melchor Ot N17.9 06/13/2015 GELLENDER DO, TAMIKA A Ot N18.9 06/13/2015 GELLENDER DO, TAMIKA Melchor Ot R53.81 06/13/2015 GELLENDER DO, TAMIKA A [...] TAMIKA A Ot E78.5 06/15/2015 GELLENDER DO, TAMIAK A Ot E87.70 06/15/2015 GELLENDER DO, TAMIKA A Ot I12.9 06/15/2015 GELLENDER DO, TAMIKA A Ot I25.10 06/15/2015 GELLENDER DO, TAMIKA A Ot I48.92 06/15/2015 GELLENDER DO, TAMIKA Melchor Ot I49.5 06/15/2015 GELLENDER DO, TAMIKA Melchor [...] 06/17/2015 GELLENDER DO, TAMIKA Melchor Ot B96.20 06/17/2015 GELLENDER DO, TAMIKA [...] 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 06/17/2015 GELLENDER DO, TAMIKA Melchor Ot E66.9 OBESITY, UNSPECIFIED 06/17/2015 GELLENDER DO, TAMIKA Melchor Ot E78.5 HYPERLIPIDEMIA, UNSPECIFIED 06/17/2015 GELLENDER DO, TAMIKA Melchor Ot E87.70 FLUID OVERLOAD, UNSPECIFIED 06/17/2015 GELLENDER DO, TAMIKA Melchor Ot I12.9 HYPERTENSIVE CHRONIC KIDNEY DISEASE W ST 06/17/2015 GELLENDER DO, TAMIKA Melchor Ot I25.10 ATHSCL HEART DISEASE OF [place] CORONARY 06/17/2015 GELLENDER DO, TAMIKA Melchor Ot I48.92 UNSPECIFIED ATRIAL FLUTTER 06/17/2015 GELLENDER DO, TAMIKA Melchor Ot I49.5 SICK SINUS SYNDROME 06/17/2015 GELLENDER DO, TAMIKA Melchor Ot J44.9 CHRONIC OBSTRUCTIVE PULMONARY DISEASE, U 06/17/2015 GELLENDER DO, TAMIKA Melchor Ot K21.9 GASTRO-ESOPHAGEAL REFLUX DISEASE WITHOUT 06/17/2015 GELLENDER DO, TAMIKA Melchor Ot L89.619 PRESSURE ULCER OF RIGHT HEEL, UNSPECIFIE 06/17/2015 GELLENDER DO, TAMIKA Melchor Ot L97.819 NON-PRESSURE CHRONIC ULCER OTH PRT R LOW 06/17/2015 GELLENDER DO, TAMIKA Melchor Ot N17.9 ACUTE KIDNEY FAILURE, UNSPECIFIED 06/17/2015 GELLENDER DO, TAMIKA Melchor Ot N18.9 CHRONIC KIDNEY DISEASE, UNSPECIFIED 06/17/2015 GELLENDER DO, TAMIKA Melchor Ot N39.0 URINARY TRACT INFECTION, SITE NOT SPECIF 06/17/2015 GELLENDER DO, TAMIKA Melchor Ot R53.81 OTHER MALAISE 06/17/2015 CHRISTOPHER DOTAMIKA Ot Z68.41 BODY MASS INDEX (BMI) 40.0-44.9, ADULT 06/17/2015 GELLENDER DO, TAMIKA Melchor Ot 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 06/17/2015 GELLENDER DO, TAMIKA Melchor Ot Z91.81 HISTORY OF FALLING 06/17/2015 GELLENDER DO, TAMIKA Melchor Ot Z95.5 PRESENCE OF CORONARY ANGIOPLASTY IMPLANT 07/01/2015 GRICELDA JONES, PRADIP Oviedo Ot E11.622 TYPE 2 DIABETES MELLITUS WITH OTHER SKIN 07/01/2015 GRICELDA JONES, PRADIP Oviedo Ot E66.01 MORBID (SEVERE) OBESITY DUE TO EXCESS CA 07/01/2015 GRICELDA JONES, PRADIP Oviedo Ot I50 .9 HEART FAILURE, UNSPECIFIED 07/01/2015 PRADIP MADISON MD Ot I70.232 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 07/01/2015 PRADIP MADISON MD Ot 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 07/01/2015 PRADIP MADISON MD Ot 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, STAGE 2 07/01/2015 PRADIP MADISON MD Ot L97.212 NON-PRESSURE CHRONIC ULCER OF RIGHT CALF 07/27/2015 PRADIP MADISON MD Ot E11.622 TYPE 2 DIABETES MELLITUS WITH OTHER SKIN 07/27/2015 PRADIP MADISON MD, Ot E66.01 MORBID (SEVERE) OBESITY DUE TO EXCESS CA 07/27/2015 PRADIP MADISON MD, Ot I50 .9 HEART FAILURE, UNSPECIFIED 07/27/2015 PRADIP MADISON MD, Ot I70.232 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 07/27/2015 PRADIP MADISON MD, Ot 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 07/27/2015 PRADIP MADISON MD, Ot 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, STAGE 2 07/27/2015 PRADIP MADISON MD, Ot L97.212 NON-PRESSURE CHRONIC ULCER OF RIGHT CALF 08/05/2015 PRADIP MADISON MD Ot E11.622 TYPE 2 DIABETES MELLITUS WITH OTHER SKIN 08/05/2015 PRADIP MADISON MD, Ot E66.01 MORBID (SEVERE) OBESITY DUE TO EXCESS CA 08/05/2015 PRADIP MADISON MD, Ot I50 .9 HEART FAILURE, UNSPECIFIED 08/05/2015 PRADIP MADISON MD Ot I70.232 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 08/05/2015 PRADIP MADISON MD Ot 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 08/05/2015 PRADIP MADISON MD Ot 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, STAGE 2 08/05/2015 PRADIP MADISON MD Ot L97.212 NON-PRESSURE CHRONIC ULCER OF RIGHT CALF 09/22/2015 PRADIP MADISON MD Ot E11.621 TYPE 2 DIABETES MELLITUS WITH FOOT ULCER 09/22/2015 PRADIP MADISON MD Ot E11.622 TYPE 2 DIABETES MELLITUS WITH OTHER SKIN 09/22/2015 PRADIP MADISON MD Ot E66.01 MORBID (SEVERE) OBESITY DUE TO EXCESS CA 09/22/2015 PRADIP MADISON MD, Ot I50 .9 HEART FAILURE, UNSPECIFIED 09/22/2015 PRADIP MADISON MD, Ot I70.232 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 09/22/2015 [...] EXCESS CA 09/23/2015 PRADIP MADISON MD, Ot I50 .9 HEART FAILURE, UNSPECIFIED 09/23/2015 PRADIP MADISON MD, Ot I70.232 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 09/23/2015 [...] 2 DIABETES MELLITUS WITH OTHER SKIN 09/28/2015 PRADIP MADISON MD, Ot E66.01 MORBID (SEVERE) OBESITY DUE TO EXCESS CA 09/28/2015 PRADIP MADISON MD, Ot I50 .9 HEART FAILURE, UNSPECIFIED 09/28/2015 PRADIP MADISON MD Ot I70.232 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 09/28/2015 PRADIP MADISON MD Ot 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 09/28/2015 PRADIP MADISON MD Ot 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, STAGE 2 09/28/2015 PRADIP MADISON MD Ot L97.212 NON-PRESSURE CHRONIC ULCER OF RIGHT CALF 09/29/2015 PRADIP MADISON MD Ot E11.622 TYPE 2 DIABETES MELLITUS WITH OTHER SKIN 09/29/2015 PRADIP MADISON MD Ot E66.01 MORBID (SEVERE) OBESITY DUE TO EXCESS CA 09/29/2015 PRADIP MADISON MD, Ot I50 .9 HEART FAILURE, UNSPECIFIED 09/29/2015 PRADIP MADISON MD, Ot I70.232 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 09/29/2015 PRADIP MADISON MD Ot 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 09/29/2015 PRADIP MADISON MD Ot 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, STAGE 2 09/29/2015 PRADIP MADISON MD Ot L97.212 NON-PRESSURE CHRONIC ULCER OF RIGHT CALF 10/23/2015 PRADIP MADISON MD, Ot E11.622 TYPE 2 DIABETES MELLITUS WITH OTHER SKIN 10/23/2015 PRADIP MADISON MD Ot E66.01 MORBID (SEVERE) OBESITY DUE TO EXCESS CA 10/23/2015 PRADIP MADISON MD, Ot I50 .9 HEART FAILURE, UNSPECIFIED 10/23/2015 PRADIP MADISON MD Ot I70.232 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 10/23/2015 PRADIP MADISON MD Ot 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 10/23/2015 PRADIP MADISON MD Ot 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 9 PERIPHERAL VASCULAR DISEASE, UNSPECIFIED 11/03/2015 CAROL MARTINEZ MD Ot M79.604 PAIN IN RIGHT LEG 11/13/2015 PRADIP MADISON MD Ot E11.622 TYPE 2 DIABETES MELLITUS WITH OTHER SKIN 11/13/2015 PRADIP MADISON MD Ot E66.01 MORBID (SEVERE) OBESITY DUE TO EXCESS CA 11/13/2015 PRADIP MADISON MD Ot I50 .9 HEART FAILURE, UNSPECIFIED 11/13/2015 PRADIP MADISON MD Ot I70.232 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 11/13/2015 [...] DUE TO EXCESS CA 11/23/2015 PRADIP MADISON MD Ot I50 .9 HEART FAILURE, UNSPECIFIED 11/23/2015 PRADIP MADISON MD Ot I70.232 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 11/23/2015 [...] 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 11/27/2015 TAMIKA WHITE DO Ot E78.5 HYPERLIPIDEMIA, UNSPECIFIED 11/27/2015 TAMIKA WHITE DO Ot E86.0 DEHYDRATION 11/27/2015 TAMKIA WHITE DO Ot I12.9 HYPERTENSIVE CHRONIC KIDNEY DISEASE W ST 11/27/2015 TAMIKA WHITE DO Ot I25.10 ATHSCL HEART DISEASE OF [place] CORONARY 11/27/2015 TAMIKA WHITE DO Ot K21.9 GASTRO-ESOPHAGEAL REFLUX DISEASE WITHOUT 11/27/2015 TAMIKA WHITE DO Ot L97.919 NON-PRS CHRONIC ULC UNSP PRT OF R LOW LE 11/27/2015 TAMIKA WHITE DO Ot N18.9 CHRONIC KIDNEY DISEASE, UNSPECIFIED 11/27/2015 TAMIKA WHITE DO Ot N39.0 URINARY TRACT INFECTION, SITE NOT SPECIF 11/27/2015 TAMIKA WHITE DO Ot Z79.4 ALF (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 OF INSULIN 11/27/2015 CHRISTOPHER CONTRERAS TAMIKA Melchor Ot Z95.5 PRESENCE OF CORONARY ANGIOPLASTY IMPLANT 12/03/2015 Ot 715.37 LOC OSTEOARTH NOS-ANKLE 12/03/2015 Ot 397.0 TRIC USPID VALVE DISEASE 12/03/2015 Ot 414.00 COR ON ATHEROSCLER NOS TYPE VESSEL, NATIV 12/03/2015 Ot 424.0 MITR AL VALVE DISORDER 12/03/2015 Ot 782.3 EDEMA 12/03/2015 Ot 786.09 RES PIRATORY ABNORM NEC 12/03/2015 SILVA JONES, GE Casper Ot V72.84 EXAM PRE-OPERATIVE NOS 12/03/2015 GRICELDA JONES, PRADIP Oviedo Ot 443 .9 PERIPH VASCULAR DIS NOS 12/03/2015 PRADIP MADISON MD Ot 707.10 ULCER OF LOWER LIMB NOS 12/03/2015 CHRISTOPHER CONTRERAS TAMIKA Melchor Ot 250.00 DIAB SHERRIE WO COMPL, TYPE II OR UNSPEC TY 12/03/2015 CHRISTOPHER CONTRERAS TAMIKA Jill Ot 433.10 CAROTID ARTERY OCCLUSION W O [...] MADISON MD Ot 414.01 CORONARY ATHEROSCLEROSIS OF [place] CORON 12/03/2015 PRADIP MADISON MD Ot 440.23 ATHEROSCL [place] ARTER EXTREMITIES W ULC 12/03/2015 PRADIP MADISON MD Ot 459.33 CHRONIC VENOUS HYPERTEN W ULCER/INFLAMMA 12/03/2015 PRADIP MADISON MD Ot 707.12 ULCER OF CALF 12/03/2015 PRADIP MADISON MD Ot 785 .9 CARDIOVAS SYS SYMP NEC 12/03/2015 PRADIP MADISON MD Ot V45.82 PERCUTANEOUS TRANSLUM CORON ANGIOPLASTY 12/03/2015 PRADIP MADISON MD Ot 443 .9 PERIPH VASCULAR DIS NOS 12/03/2015 PRADIP MADISON MD Ot 457 .1 OTHER LYMPHEDEMA 12/03/2015 PRADIP MADISON MD Ot 707.12 ULCER OF CALF 12/03/2015 TAMIKA WHITE DO Ot 786.05 SHORTNESS OF BREATH 12/03/2015 CAROL MARTINEZ MD Ot E78. 2 MIXED HYPERLIPIDEMIA 12/03/2015 CAROL MARTINEZ MD Ot I10 ESSENTIAL (PRIMARY) HYPERTENSION 12/03/2015 CAROL MARTINEZ MD Ot I25. 10 ATHSCL HEART DISEASE OF [place] CORONARY 12/03/2015 CAROL MARTINEZ MD Ot R06. 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 9 PERIPHERAL VASCULAR DISEASE, UNSPECIFIED 12/03/2015 CAROL MARTINEZ [...] INFLAM OF 12/03/2015 PRADIP MADISON MD, Ot I89 .0 LYMPHEDEMA, NOT ELSEWHERE CLASSIFIED 12/03/2015 PRADIP MADISON MD, Ot L97.212 NON-PRESSURE CHRONIC ULCER OF RIGHT CALF 12/04/2015 PRADIP MADISON MD, Ot E11.622 TYPE 2 DIABETES MELLITUS WITH OTHER SKIN 12/04/2015 PRADIP MADISON MD Ot E66.01 MORBID (SEVERE) OBESITY DUE TO EXCESS CA 12/04/2015 PRADIP MADISON MD, Ot I70.232 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 12/04/2015 PRADIP MADISON MD Ot 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 12/04/2015 PRADIP MADISON MD Ot I89 .0 LYMPHEDEMA, NOT ELSEWHERE CLASSIFIED 12/04/2015 PRADIP MADISON MD, Ot L97.212 NON-PRESSURE CHRONIC ULCER OF RIGHT CALF 12/07/2015 PRADIP MADISON MD Ot E11.622 TYPE 2 DIABETES MELLITUS WITH OTHER SKIN 12/07/2015 PRADIP MADISON MD Ot E66.01 MORBID (SEVERE) OBESITY DUE TO EXCESS CA 12/07/2015 PRADIP MADISON MD Ot I70.232 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 12/07/2015 PRADIP MADISON MD Ot 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 12/07/2015 PRADIP MADISON MD Ot I89 .0 LYMPHEDEMA, NOT ELSEWHERE CLASSIFIED 12/07/2015 PRADIP MADISON MD, Ot L97.212 NON-PRESSURE CHRONIC ULCER OF RIGHT CALF 12/07/2015 PRADIP MADISON MD, Ot E11.622 TYPE 2 DIABETES MELLITUS WITH OTHER SKIN 12/07/2015 PRADIP MADISON MD, Ot E66.01 MORBID (SEVERE) OBESITY DUE TO EXCESS CA 12/07/2015 PRADIP MADISON MD Ot I50 .9 HEART FAILURE, UNSPECIFIED 12/07/2015 PRADIP MADISON MD Ot I70.232 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 12/07/2015 [...] EXCESS CA 12/07/2015 PRADIP MADISON MD, Ot I50 .9 HEART FAILURE, UNSPECIFIED 12/07/2015 PRADIP MADISON MD Ot I70.232 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 12/07/2015 [...] INFLAM OF 12/09/2015 PRADIP MADISON MD, Ot I89 .0 LYMPHEDEMA, NOT ELSEWHERE CLASSIFIED 12/09/2015 PRADIP MADISON MD, Ot L97.212 NON-PRESSURE CHRONIC ULCER OF RIGHT CALF 12/09/2015 PRADIP MADISON MD, Ot E11.622 TYPE 2 DIABETES MELLITUS WITH OTHER SKIN 12/09/2015 PRADIP MADISON MD, Ot E66.01 MORBID (SEVERE) OBESITY DUE TO EXCESS CA 12/09/2015 PRADIP MADISON MD, Ot I70.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 12/09/2015 PRADIP MADISON MD, Ot 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 12/09/2015 PRADIP MADISON MD, Ot I89 .0 LYMPHEDEMA, NOT ELSEWHERE CLASSIFIED 12/09/2015 PRADIP MADISON [...] INFLAM OF 12/16/2015 PRADIP MADISON MD, Ot I89 .0 LYMPHEDEMA, NOT ELSEWHERE CLASSIFIED 12/16/2015 PRADIP MADISON MD, Ot L97.212 NON-PRESSURE CHRONIC ULCER OF RIGHT CALF 12/22/2015 JOHANNA MCKENZIE DO, Ot E11.9 TYPE 2 DIABETES MELLITUS WITHOUT COMPLIC 12/22/2015 JOHANNA MCKENZIE DO, Ot I1 0 ESSENTIAL (PRIMARY) HYPERTENSION 12/22/2015 JOHANNA MCKENZIE DO, Ot J44.1 CHRONIC OBSTRUCTIVE PULMONARY DISEASE W 12/22/2015 JOHANNA MCKENZIE DO, Ot R0 5 COUGH 12/22/2015 JOHANNA MCKENZIE DO, Ot Z79.4 ALF (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 OF INSULIN 12/22/2015 JOHANNA MCKENZIE DO, Ot Z79.82 ALF (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 OF ASPIRIN 12/22/2015 JOHANNA MCKENZIE DO, Ot Z79.899 OTHER SERVICE CLERK (CURRENT) DRUG THERAPY 12/22/2015 JOHANNA MCKENZIE DO Ot E11.9 TYPE 2 DIABETES MELLITUS WITHOUT COMPLIC 12/22/2015 JOHANNA MCKENZIE DO Ot I1 0 ESSENTIAL (PRIMARY) HYPERTENSION 12/22/2015 JOHANNA MCKENZIE DO, Ot J44.1 CHRONIC OBSTRUCTIVE PULMONARY DISEASE W 12/22/2015 JOHANNA MCKENZIE DO Ot R0 5 COUGH 12/22/2015 JOHANNA MCKENZIE DO, Ot Z79.4 ALF (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 OF INSULIN 12/22/2015 JOHANNA MCKENZIE DO, Ot Z79.82 ALF (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 OF ASPIRIN 12/22/2015 JOHANNA MCKENZIE DO, Ot Z79.899 OTHER SERVICE CLERK (CURRENT) DRUG THERAPY 12/22/2015 ANGELA ALEGRIA Ot E78.2 MIXED HYPERLIPIDEMIA 12/22/2015 ANGELA ALEGRIA Ot G47.33 OBSTRUCTIVE SLEEP APNEA (ADULT) (PEDIATR 12/22/2015 ANGELA ALEGRIA Ot I10 ESSENTIAL (PRIMARY) HYPERTENSION 12/22/2015 ANGELA ALEGRIA Ot I25.10 ATHSCL HEART DISEASE OF [place] CORONARY 12/23/2015 JOHANNA MCKENZIE DO Ot E11.9 TYPE 2 DIABETES MELLITUS WITHOUT COMPLIC 12/23/2015 JOHANNA MCKENZIE DO, Ot I1 0 ESSENTIAL (PRIMARY) HYPERTENSION 12/23/2015 JOHANNA MCKENZIE DO, Ot J44.1 CHRONIC OBSTRUCTIVE PULMONARY DISEASE W 12/23/2015 JOHANNA MCKENZIE DO Ot R0 5 COUGH 12/23/2015 JOHANNA MCKENZIE DO, Ot 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 12/23/2015 JOHANNA MCKENZIE DO, Ot Z79.82 SERVICE CLERK (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 OF ASPIRIN 12/23/2015 JOHANNA MCKENZIE DO, Ot Z79.899 OTHER ALF (CURRENT) DRUG THERAPY 12/24/2015 GRICELDA JONES, PRADIP Oviedo Ot E11.622 TYPE 2 DIABETES MELLITUS WITH OTHER SKIN 12/24/2015 PRADIP MADISON MD, Ot E66.01 MORBID (SEVERE) OBESITY DUE TO EXCESS CA 12/24/2015 PRADIP MADISON MD, Ot I70.232 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 12/24/2015 PRADIP MADISON MD, Ot 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 12/24/2015 PRADIP MADISON MD, Ot I89 .0 LYMPHEDEMA, NOT ELSEWHERE CLASSIFIED 12/24/2015 PRADIP MADISON MD, Ot L97.212 NON-PRESSURE CHRONIC ULCER OF RIGHT CALF 12/31/2015 PRADIP MADISON MD, Ot E11.622 TYPE 2 DIABETES MELLITUS WITH OTHER SKIN 12/31/2015 PRADIP MADISON MD, Ot E66.01 MORBID (SEVERE) OBESITY DUE TO EXCESS CA 12/31/2015 PRADIP MADISON MD, Ot I70.232 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 12/31/2015 PRADIP MADISON MD, Ot 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 12/31/2015 PRADIP MADISON MD, Ot I89 .0 LYMPHEDEMA, NOT ELSEWHERE CLASSIFIED 12/31/2015 PRADIP MADISON MD, Ot L97.212 NON-PRESSURE CHRONIC ULCER OF RIGHT CALF 01/11/2016 PRADIP MADISON MD, Ot E11.622 TYPE 2 DIABETES MELLITUS WITH OTHER SKIN 01/11/2016 PRADIP MADISON MD, Ot E66.01 MORBID (SEVERE) OBESITY DUE TO EXCESS CA 01/11/2016 PRADIP MADISON MD, Ot 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 01/11/2016 PRADIP MADISON MD, Ot I89 .0 LYMPHEDEMA, NOT ELSEWHERE CLASSIFIED 01/11/2016 PRADIP MADISON MD, Ot L97.212 NON-PRESSURE CHRONIC ULCER OF RIGHT CALF 01/11/2016 PRADIP MADISON MD, Ot Z68.42 BODY MASS INDEX (BMI) 45.0-49.9, ADULT 01/14/2016 ANGELA ALEGRIA Ot E78.2 MIXED HYPERLIPIDEMIA 01/14/2016 ANGELA ALEGRIA Ot G47.33 OBSTRUCTIVE SLEEP APNEA (ADULT) (PEDIATR 01/14/2016 ANGELA ALEGRIA Ot I10 ESSENTIAL (PRIMARY) HYPERTENSION 01/14/2016 GRIMALDO-VJ PA, ANGELA K Ot I25.10 ATHSCL HEART DISEASE OF [place] CORONARY 01/21/2016 PRASHANTH SPEAR APRN Ot R06.02 SHORTNESS OF BREATH 01/22/2016 ANGELA ALEGRIA Ot E78.2 MIXED HYPERLIPIDEMIA 01/22/2016 ANGELA ALEGRIA Ot G47.33 OBSTRUCTIVE SLEEP APNEA (ADULT) (PEDIATR 01/22/2016 ANGELA ALEGRIA Ot I10 ESSENTIAL (PRIMARY) HYPERTENSION 01/22/2016 ANGELA ALEGRIA Ot I25.10 ATHSCL HEART DISEASE OF [place] CORONARY 02/10/2016 PRASHANTH SPEAR APRN Ot R06.02 SHORTNESS OF BREATH 02/17/2016 PRASHANTH SPEAR APRN Ot R06.02 SHORTNESS OF BREATH 03/23/2016 ROZ SOLIS MD Ot E11.6 22 TYPE 2 DIABETES MELLITUS WITH OTHER SKIN 03/23/2016 ROZ SOLIS MD Ot I70.2 32 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 03/23/2016 ROZ SOLIS MD Ot L97.2 12 NON-PRESSURE CHRONIC ULCER OF RIGHT CALF 03/23/2016 ROZ SOLIS MD Ot E11.6 22 TYPE 2 DIABETES MELLITUS WITH OTHER SKIN 03/23/2016 ROZ SOLIS MD Ot I70.2 32 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 03/23/2016 ROZ SOLIS MD Ot L97.2 12 NON-PRESSURE CHRONIC ULCER OF RIGHT CALF 03/25/2016 TAMIKA WHITE DO Ot E11.65 TYPE 2 DIABETES MELLITUS WITH HYPERGLYCE 03/28/2016 TAMIKA WHITE DO Ot E11.65 TYPE 2 DIABETES MELLITUS WITH HYPERGLYCE 04/15/2016 ROZ SOLIS MD Ot E11.6 22 TYPE 2 DIABETES MELLITUS WITH OTHER SKIN 04/15/2016 ROZ SOLIS MD Ot I70.2 32 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 04/15/2016 ROZ SOLIS MD Ot L97.2 12 NON-PRESSURE CHRONIC ULCER OF RIGHT CALF 04/20/2016 ROZ SOLIS MD Ot E11.6 22 TYPE 2 DIABETES MELLITUS WITH OTHER SKIN 04/20/2016 ROZ SOLIS MD Ot I70.2 32 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 04/20/2016 ROZ SOLIS MD Ot L97.2 12 NON-PRESSURE CHRONIC ULCER OF RIGHT CALF 05/02/2016 ROZ SOLIS MD Ot E11.6 22 TYPE 2 DIABETES MELLITUS WITH OTHER SKIN 05/02/2016 ROZ SOLIS MD Ot E66.0 1 MORBID (SEVERE) OBESITY DUE TO EXCESS CA 05/02/2016 ROZ SOLIS MD Ot I70.2 32 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 05/02/2016 ROZ SOLIS MD Ot I87.3 31 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 05/02/2016 ROZ SOLIS MD Ot I89.0 LYMPHEDEMA, NOT ELSEWHERE CLASSIFIED 05/02/2016 ROZ SOLIS MD Ot L97.2 12 NON-PRESSURE CHRONIC ULCER OF RIGHT CALF 05/02/2016 TAMIKA WHITE DO Ot E11.65 TYPE 2 DIABETES MELLITUS WITH HYPERGLYCE 05/05/2016 ROZ SOLIS MD Ot E11.6 22 TYPE 2 DIABETES MELLITUS WITH OTHER SKIN 05/05/2016 ROZ SOLIS MD Ot E66.0 1 MORBID (SEVERE) OBESITY DUE TO EXCESS CA 05/05/2016 ROZ SOLIS MD Ot I70.2 32 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 05/05/2016 ROZ SOLIS MD Ot I87.3 31 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 05/05/2016 ROZ SOLIS MD Ot I89.0 LYMPHEDEMA, NOT ELSEWHERE CLASSIFIED 05/05/2016 ROZ SOLIS MD Ot L97.2 12 NON-PRESSURE CHRONIC ULCER OF RIGHT CALF 05/05/2016 TAMIKA WHITE DO Ot E11.65 TYPE 2 DIABETES MELLITUS WITH HYPERGLYCE 06/15/2016 ROZ SOLIS MD Ot E11.6 22 TYPE 2 DIABETES MELLITUS WITH OTHER SKIN 06/15/2016 ROZ SOLIS MD Ot E66.0 1 MORBID (SEVERE) OBESITY DUE TO EXCESS CA 06/15/2016 ROZ SOLIS MD Ot I70.2 32 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 06/15/2016 ROZ SOLIS MD Ot I87.3 31 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 06/15/2016 ROZ SOLIS MD Ot I89.0 LYMPHEDEMA, NOT ELSEWHERE CLASSIFIED 06/15/2016 ROZ SOLIS MD Ot L97.2 12 NON-PRESSURE CHRONIC ULCER OF RIGHT CALF 06/16/2016 ROZ SOLIS MD Ot E11.6 22 TYPE 2 DIABETES MELLITUS WITH OTHER SKIN 06/16/2016 ROZ SOLIS MD Ot E66.0 1 MORBID (SEVERE) OBESITY DUE TO EXCESS CA 06/16/2016 ROZ SOLIS MD Ot I70.2 32 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 06/16/2016 ROZ SOLIS MD Ot I87.3 31 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 06/16/2016 ROZ SOLIS MD, Ot I89.0 LYMPHEDEMA, NOT ELSEWHERE CLASSIFIED 06/16/2016 ROZ SOLIS MD Ot L97.2 12 NON-PRESSURE CHRONIC ULCER OF RIGHT CALF 06/17/2016 ROZ SOLIS MD Ot E11.6 22 TYPE 2 DIABETES MELLITUS WITH OTHER SKIN 06/17/2016 ROZ SOLIS MD, Ot E66.0 1 MORBID (SEVERE) OBESITY DUE TO EXCESS CA 06/17/2016 ROZ SOLIS MD Ot I70.2 32 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 9 OBESITY, UNSPECIFIED 07/13/2016 CAROL MARTINEZ MD Ot G47. 33 OBSTRUCTIVE SLEEP APNEA (ADULT) (PEDIATR 07/13/2016 CAROL MARTINEZ MD Ot I12. 9 HYPERTENSIVE CHRONIC KIDNEY DISEASE W ST 07/13/2016 CAROL MARTINEZ MD Ot I25. 10 ATHSCL HEART DISEASE OF [place] CORONARY 07/13/2016 CAROL MARTINEZ MD Ot I70. 0 ATHEROSCLEROSIS OF [place] 07/13/2016 CAROL MARTINEZ MD Ot I70.203 UNSP ATHSCL [place] ARTERIES OF EXTREMITI 07/13/2016 CAROL MARTINEZ MD Ot J44. 9 CHRONIC OBSTRUCTIVE PULMONARY DISEASE, U 07/13/2016 CAROL MARTINEZ MD, Ot L97.819 NON-PRESSURE CHRONIC ULCER OTH PRT R LOW 07/13/2016 CAROL MARTINEZ MD, Ot N18. 9 CHRONIC KIDNEY DISEASE, UNSPECIFIED 07/13/2016 CAROL MARTINEZ MD, Ot Z68. 43 BODY MASS INDEX (BMI) 50-59.9 , ADULT 07/13/2016 CAROL MARTINEZ MD, Ot Z79. 01 SERVICE CLERK (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 OF ANTICOAGULANT 07/13/2016 CAROL MARTINEZ MD, Ot Z79. 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 07/21/2016 ROZ SOLIS MD, Ot I87.3 31 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 07/21/2016 ROZ SOLIS MD, Ot I89.0 LYMPHEDEMA, NOT ELSEWHERE CLASSIFIED 07/21/2016 ROZ SOLIS MD, Ot L97.2 12 NON-PRESSURE CHRONIC ULCER OF RIGHT CALF 07/21/2016 ROZ SOLIS MD, Ot Z68.4 2 BODY MASS INDEX (BMI) 45.0-49.9, ADULT 07/27/2016 ROZ SOLIS MD, Ot E11.6 22 TYPE 2 DIABETES MELLITUS WITH OTHER SKIN 07/27/2016 ROZ SOLIS MD, Ot E66.0 1 MORBID (SEVERE) OBESITY DUE TO EXCESS CA 07/27/2016 ROZ SOLIS MD, Ot I70.2 32 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 9 OBESITY, UNSPECIFIED 07/29/2016 CAROL MARTINEZ MD, Ot G47. 33 OBSTRUCTIVE SLEEP APNEA (ADULT) (PEDIATR 07/29/2016 CAROL MARTINEZ MD, Ot I12. 9 HYPERTENSIVE CHRONIC KIDNEY DISEASE W ST 07/29/2016 CAROL MARTINEZ MD Ot I25. 10 ATHSCL HEART DISEASE OF [place] CORONARY 07/29/2016 CAROL MARTINEZ MD Ot I70. 0 ATHEROSCLEROSIS OF [place] 07/29/2016 CAROL MARTINEZ MD Ot I70.203 UNSP ATHSCL [place] ARTERIES OF EXTREMITI 07/29/2016 CAROL MARTINEZ MD, Ot J44. 9 CHRONIC OBSTRUCTIVE PULMONARY DISEASE, U 07/29/2016 CAROL MARTINEZ MD, Ot L97.819 NON-PRESSURE CHRONIC ULCER OTH PRT R LOW 07/29/2016 CAROL MARTINEZ MD, Ot N18. 9 CHRONIC KIDNEY DISEASE, UNSPECIFIED 07/29/2016 CAROL MARTINEZ MD, Ot Z68. 43 BODY MASS INDEX (BMI) 50-59.9 , ADULT 07/29/2016 CAROL MARTINEZ MD, Ot Z79. 01 ALF (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 OF ANTICOAGULANT 07/29/2016 CAROL MARTINEZ MD Ot Z79. 4 SERVICE CLERK (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 OF INSULIN 07/29/2016 CAROL MARTINEZ MD, Ot Z79.899 OTHER ALF (CURRENT) DRUG THERAPY 09/13/2016 LIZET LOPEZ MD Ot E11.40 TYPE 2 DIABETES MELLITUS WITH DIABETIC N 09/13/2016 LIZET LOPEZ MD Ot E11.621 TYPE 2 DIABETES MELLITUS WITH FOOT ULCER 09/13/2016 LIZET LOPEZ MD Ot E78.00 PURE HYPERCHOLESTEROLEMIA, UNSPECIFIED 09/13/2016 LIZET LOPEZ MD Ot E83.42 HYPOMAGNESEMIA 09/13/2016 LIZET LOPEZ MD Ot G47.33 OBSTRUCTIVE SLEEP APNEA (ADULT) (PEDIATR 09/13/2016 LIZET LOPEZ MD, Ot I10 ESSENTIAL (PRIMARY) HYPERTENSION 09/13/2016 LIZET LOPEZ MD, Ot I25.10 ATHSCL HEART DISEASE OF [place] CORONARY 09/13/2016 LIZET LOPEZ MD, Ot I25.2 OLD MYOCARDIAL INFARCTION 09/13/2016 LIZET LOPEZ MD, Ot I73.9 PERIPHERAL VASCULAR DISEASE, UNSPECIFIED 09/13/2016 LIZET LOPEZ MD, Ot J44.9 CHRONIC OBSTRUCTIVE PULMONARY DISEASE, U 09/13/2016 LIZET LOPEZ MD, Ot K21.9 GASTRO-ESOPHAGEAL REFLUX DISEASE WITHOUT 09/13/2016 LIZET LOPEZ MD, Ot L97.901 NON-PRS [facility] UNSP PRT OF UNSP LOW LEG 09/13/2016 LIZET LOPEZ MD, Ot L97.902 NON-PRS [facility] UNSP PRT OF UNSP LOW LEG 09/13/2016 LIZET LOPEZ MD Ot M19.90 UNSPECIFIED OSTEOARTHRITIS, UNSPECIFIED 09/13/2016 LIZET LOPEZ MD Ot R00.0 TACHYCARDIA, UNSPECIFIED 09/13/2016 LIZET LOPEZ MD Ot R06.09 OTHER FORMS OF DYSPNEA 09/13/2016 LIZET LOPEZ MD, Ot R53.1 WEAKNESS 09/13/2016 LIZET LOPEZ MD, Ot Z79.01 ALF (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 OF ANTICOAGULANT 09/13/2016 LIZET LOPEZ MD Ot 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 09/13/2016 LIZET LOPEZ MD, Ot Z79.82 SERVICE CLERK (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 OF ASPIRIN 09/13/2016 LIZET LOPEZ MD, Ot Z82.49 FAMILY HX OF [place] HEART DIS AND OTH DI 09/13/2016 LIZET LOPEZ MD, Ot Z95.5 PRESENCE OF CORONARY ANGIOPLASTY IMPLANT 09/13/2016 LIZET LOPEZ MD, Ot Z99.81 DEPENDENCE ON SUPPLEMENTAL OXYGEN 09/14/2016 LIZET LOPEZ MD Ot E11.40 TYPE 2 DIABETES MELLITUS WITH DIABETIC N 09/14/2016 LIZET LOPEZ MD Ot E11.621 TYPE 2 DIABETES MELLITUS WITH FOOT ULCER 09/14/2016 LIZET LOPEZ MD Ot E78.00 PURE HYPERCHOLESTEROLEMIA, UNSPECIFIED 09/14/2016 LIZET LOPEZ MD, Ot E83.42 HYPOMAGNESEMIA 09/14/2016 LIZET LOPEZ MD Ot G47.33 OBSTRUCTIVE SLEEP APNEA (ADULT) (PEDIATR 09/14/2016 LIZET LOPEZ MD, Ot I10 ESSENTIAL (PRIMARY) HYPERTENSION 09/14/2016 LIZET LOPEZ MD Ot I25.10 ATHSCL HEART DISEASE OF [place] CORONARY 09/14/2016 LIZET LOPEZ MD, Ot I25.2 OLD MYOCARDIAL INFARCTION 09/14/2016 LIZET LOPEZ MD, Ot I73.9 PERIPHERAL VASCULAR DISEASE, UNSPECIFIED 09/14/2016 LIZET LOPEZ MD, Ot J44.9 CHRONIC OBSTRUCTIVE PULMONARY DISEASE, U 09/14/2016 ILZET LOPEZ MD, Ot K21.9 GASTRO-ESOPHAGEAL REFLUX DISEASE WITHOUT 09/14/2016 LIZET LOPEZ MD Ot L97.901 NON-PRS [facility] UNSP PRT OF UNSP LOW LEG 09/14/2016 LIZET LOPEZ MD Ot L97.902 NON-PRS [facility] UL UNSP PRT OF UNSP LOW LEG 09/14/2016 LIZET LOPEZ MD Ot M19.90 UNSPECIFIED OSTEOARTHRITIS, UNSPECIFIED 09/14/2016 LIZET LOPEZ MD Ot R00.0 TACHYCARDIA, UNSPECIFIED 09/14/2016 LIZET LOPEZ MD Ot R06.09 OTHER FORMS OF DYSPNEA 09/14/2016 LIZET LOPEZ MD Ot R53.1 WEAKNESS 09/14/2016 LIZET LOPEZ MD Ot Z79.01 ALF (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 OF ANTICOAGULANT 09/14/2016 LIZET LOPEZ MD Ot 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 09/14/2016 LIZET LOPEZ MD Ot Z79.82 ALF (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 OF ASPIRIN 09/14/2016 JESSICA JONES, LIZET Berumen Ot Z82.49 FAMILY HX OF [place] HEART DIS AND OTH DI 09/14/2016 JESSICA JONES, LIZET Berumen Ot Z95.5 PRESENCE OF CORONARY ANGIOPLASTY IMPLANT 09/14/2016 LIZET LOPEZ MD Ot Z99.81 DEPENDENCE ON SUPPLEMENTAL OXYGEN 09/23/2016 SOWMYA JONES, ANN MARIE Ulrich Ot E11. 40 TYPE 2 DIABETES MELLITUS WITH DIABETIC N 09/23/2016 SOWMYA JONES, ANN MARIE Ulrich Ot E11.621 TYPE 2 DIABETES MELLITUS WITH FOOT ULCER 09/23/2016 SOWMYA JONES, ANN MARIE Ulrich Ot E78. 00 PURE HYPERCHOLESTEROLEMIA, UNSPECIFIED 09/23/2016 SOWMYA JONES, ANN MARIE Ulrich Ot G47. 30 SLEEP APNEA, UNSPECIFIED 09/23/2016 SOWMYA JONES, ANN MARIE Ulrich Ot H10.211 ACUTE TOXIC CONJUNCTIVITIS, RIGHT EYE 09/23/2016 ANN MARIE DENG MD Ot H57. 11 OCULAR PAIN, RIGHT EYE 09/23/2016 SOWMYA JONES, ANN MARIE Ulrich Ot I10 ESSENTIAL (PRIMARY) HYPERTENSION 09/23/2016 SOWMYA JONES, ANN MARIE Ulrich Ot I25. 10 ATHSCL HEART DISEASE OF [place] CORONARY 09/23/2016 SOWMYA JONES, ANN MARIE Ulrich Ot I25. 2 OLD MYOCARDIAL INFARCTION 09/23/2016 SOWMYA JONES, ANN MARIE Ulrich Ot I73. 9 PERIPHERAL VASCULAR DISEASE, UNSPECIFIED 09/23/2016 ANN MARIE DENG MD Ot J44. 9 CHRONIC OBSTRUCTIVE PULMONARY DISEASE, U 09/23/2016 SOWMYA JONES, ANN MARIE Ulrich Ot K21. 9 GASTRO-ESOPHAGEAL REFLUX DISEASE WITHOUT 09/23/2016 SOWMYA JONES, ANN MARIE Ulrich Ot L97.519 NON-PRS CHRONIC ULCER OTH PRT RIGHT FOOT 09/23/2016 ANN MARIE DENG MD Ot L97.529 NON-PRESSURE CHRONIC ULCER OTH PRT LEFT 09/23/2016 SOWMYA JONES, ANN MARIE Ulrich Ot M17. 11 UNILATERAL PRIMARY OSTEOARTHRITIS, RIGHT 09/23/2016 SOWMYA JONES, ANN MARIE Ulrich Ot Z79. 01 ALF (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 OF ANTICOAGULANT 09/23/2016 ANN MARIE DENG MD Ot Z79. 4 SERVICE CLERK (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 OF INSULIN 09/23/2016 ANN MARIE DENG MD Ot Z79. 82 SERVICE CLERK (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 OF ASPIRIN 09/23/2016 SOWMYA JONES, ANN MARIE Ulrich Ot Z82. 49 FAMILY HX OF [place] HEART DIS AND OTH DI 09/23/2016 SOWMYA JONES, ANN MARIE Ulrich Ot Z90. 89 ACQUIRED ABSENCE OF OTHER ORGANS 09/23/2016 ANN MARIE DENG MD Ot Z95. 5 PRESENCE OF CORONARY ANGIOPLASTY IMPLANT 09/23/2016 SOWMYA JONES, ANN MARIE Ulrich Ot Z96.651 PRESENCE OF RIGHT ARTIFICIAL KNEE JOINT 10/01/2016 SOWMYA JONES, ANN MARIE Ulrich Ot E11. 40 TYPE 2 DIABETES MELLITUS WITH DIABETIC N 10/01/2016 SOWMYA JONES, ANN MARIE Ulrich Ot E11.621 TYPE 2 DIABETES MELLITUS WITH FOOT ULCER 10/01/2016 SOWMYA JONES, ANN MARIE Ulrich Ot E78. 00 PURE HYPERCHOLESTEROLEMIA, UNSPECIFIED 10/01/2016 SOWMYA JONES, ANN MARIE Ulrich Ot G47. 30 SLEEP APNEA, UNSPECIFIED 10/01/2016 SOWMYA JONES, ANN MARIE Ulrich Ot H10.211 ACUTE TOXIC CONJUNCTIVITIS, RIGHT EYE 10/01/2016 SOWMYA JONES, ANN MARIE Ulrich Ot H57. 11 OCULAR PAIN, RIGHT EYE 10/01/2016 SOWMYA JONES, ANN MARIE Ulrich Ot I10 ESSENTIAL (PRIMARY) HYPERTENSION 10/01/2016 SOWMYA JONES, ANN MARIE Ulrich Ot I25. 10 ATHSCL HEART DISEASE OF [place] CORONARY 10/01/2016 SOWMYA JONES, ANN MARIE Ulrich Ot I25. 2 OLD MYOCARDIAL INFARCTION 10/01/2016 SOWMYA JONES, ANN MARIE Ulrich Ot I73. 9 PERIPHERAL VASCULAR DISEASE, UNSPECIFIED 10/01/2016 ANN MARIE DENG MD Ot J44. 9 CHRONIC OBSTRUCTIVE PULMONARY DISEASE, U 10/01/2016 SOWMYA JONES, ANN MARIE Ulrich Ot K21. 9 GASTRO-ESOPHAGEAL REFLUX DISEASE WITHOUT 10/01/2016 SOWMYA JONES, ANN MARIE Ulrich Ot L97.519 NON-PRS CHRONIC ULCER OTH PRT RIGHT FOOT 10/01/2016 ANN MARIE DENG MD Ot L97.529 NON-PRESSURE CHRONIC ULCER OTH PRT LEFT 10/01/2016 SOWMYA JONES, ANN MARIE Ulrich Ot M17. 11 UNILATERAL PRIMARY OSTEOARTHRITIS, RIGHT 10/01/2016 SOWMYA JONES, ANN MARIE Ulrich Ot Z79. 01 SERVICE CLERK (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 OF ANTICOAGULANT 10/01/2016 ANN MARIE DENG MD Ot Z79. 4 ALF (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 OF INSULIN 10/01/2016 ANN MARIE DENG MD Ot Z79. 82 SERVICE CLERK (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 OF ASPIRIN 10/01/2016 ANN MARIE DENG MD Ot Z82. 49 FAMILY HX OF I[place]HE[place] HEART DIS AND OTH DI 10/01/2016 ANN MARIE DENG MD Ot Z90. 89 ACQUIRED ABSENCE OF OTHER ORGANS 10/01/2016 ANN MARIE DENG MD Ot Z95. 5 PRESENCE OF CORONARY ANGIOPLASTY IMPLANT 10/01/2016 ANN MARIE DENG MD Ot Z96.651 PRESENCE OF RIGHT ARTIFICIAL KNEE JOINT 11/16/2016 CAROL MARTINEZ MD Ot I25. 10 ATHSCL HEART DISEASE OF [place] CORONARY 11/21/2016 CAROL MARTINEZ MD Ot I25. 10 ATHSCL HEART DISEASE OF [place] CORONARY 11/22/2016 CAROL MARTINEZ MD Ot I25. 10 ATHSCL HEART DISEASE OF [place] CORONARY 11/22/2016 CAROL MARTINEZ MD Ot I25. 10 ATHSCL HEART DISEASE OF [place] CORONARY 12/15/2016 CAROL MARTINEZ MD Ot E78. 2 MIXED HYPERLIPIDEMIA 12/15/2016 CAROL MARTINEZ MD Ot I10 ESSENTIAL (PRIMARY) HYPERTENSION 12/15/2016 CAROL MARTINEZ MD Ot I25. 10 ATHSCL HEART DISEASE OF [place] CORONARY 12/15/2016 CAROL MARTINEZ MD Ot I65. 23 OCCLUSION AND STENOSIS OF BILATERAL DUPONT 12/15/2016 CAROL MARTINEZ MD Ot R06. 02 SHORTNESS OF BREATH 12/21/2016 CAROL MARTINEZ MD Ot E78. 2 MIXED HYPERLIPIDEMIA 12/21/2016 CAROL MARTINEZ MD Ot I10 ESSENTIAL (PRIMARY) HYPERTENSION 12/21/2016 CAROL MARTINEZ MD Ot I25. 10 ATHSCL HEART DISEASE OF [place] CORONARY 12/21/2016 CAROL MARTINEZ MD Ot I65. 23 OCCLUSION AND STENOSIS OF BILATERAL [place]ONT 12/21/2016 CAROL MARTINEZ MD Ot R06. 02 SHORTNESS OF BREATH 01/13/2017 TAMIKA WHITE DO Ot N39.0 URINARY TRACT INFECTION, SITE NOT SPECIF 01/13/2017 TAMIKA WHITE DO Ot R31.9 HEMATURIA, UNSPECIFIED 02/28/2017 TAMIKA WHITE DO Ot N39.0 URINARY TRACT INFECTION, SITE NOT SPECIF 02/28/2017 GELLENDER DO, TAMIKA Melchor Ot R31.9 HEMATURIA, UNSPECIFIED 03/09/2017 SANTOSH JONES, MARTÍN Melchor Ot K76.0 FATTY (CHANGE OF) LIVER, NOT ELSEWHERE C 03/16/2017 MARTÍN FROST MD Ot K76.0 FATTY (CHANGE OF) LIVER, NOT ELSEWHERE C 04/12/2017 GELLENDER DO, TAMIKA Melchor Ot N39.0 URINARY TRACT INFECTION, SITE NOT SPECIF 04/12/2017 GELLENDER DO, TAMIKA Melchor Ot R31.9 HEMATURIA, UNSPECIFIED 04/13/2017 GELLENDER DO, TAMIKA Melchor Ot N39.0 URINARY TRACT INFECTION, SITE NOT SPECIF 04/13/2017 GELLENDER DO, TAMIKA Melchor Ot R31.9 HEMATURIA, UNSPECIFIED 07/28/2017 GELLENDER DO, TAMIKA Melchor Ot A41.9 SEPSIS, UNSPECIFIED ORGANISM 07/28/2017 GELLENDER DO, TAMIKA Melchor Ot E11.43 TYPE 2 DIABETES W DIABETIC AUTONOMIC (PO 07/28/2017 GELLENDER DO, TAMIKA Melchor Ot E11.622 TYPE 2 DIABETES MELLITUS WITH OTHER SKIN 07/28/2017 GELLENDER DO, TAMIKA Melchor Ot E78.00 PURE HYPERCHOLESTEROLEMIA, UNSPECIFIED 07/28/2017 GELLENDER DOTAMIKA Ot G47.30 SLEEP APNEA, UNSPECIFIED 07/28/2017 GELLENDER DO, TAMIKA Melchor Ot I12.9 HYPERTENSIVE CHRONIC KIDNEY DISEASE W ST 07/28/2017 GELLENDER DOTAMIKA Ot I25.10 ATHSCL HEART DISEASE OF [place] CORONARY 07/28/2017 GELLENDER DOTAMIKA Ot I25.2 OLD MYOCARDIAL INFARCTION 07/28/2017 GELLENDER DO, TAMIKA Melchor Ot I73.9 PERIPHERAL VASCULAR DISEASE, UNSPECIFIED 07/28/2017 GELLENDER DOTAMIKA Ot J44.1 CHRONIC OBSTRUCTIVE PULMONARY DISEASE W 07/28/2017 GELLENDER DOTAMIKA Ot K21.9 GASTRO-ESOPHAGEAL REFLUX DISEASE WITHOUT 07/28/2017 GELLENDER DOTAMIKA Ot L03.116 CELLULITIS OF LEFT LOWER LIMB 07/28/2017 GELLENDER DOTAMIKA Ot L97.919 NON-PRS CHRONIC ULC UNSP PRT OF R LOW LE 07/28/2017 GELLENDER DOTAMIKA Ot L97.929 NON-PRS CHRONIC ULC UNSP PRT OF L LOW LE 07/28/2017 CHRISTOPHER CONTRERASTAMIKA Ot N18.9 CHRONIC KIDNEY DISEASE, UNSPECIFIED 07/28/2017 CHRISTOPHER CONTRERASTAMIKA Ot N39.0 URINARY TRACT INFECTION, SITE NOT SPECIF 07/28/2017 CHRISTOPHER CONTRERASTAMIKA Ot R11.12 PROJECTILE VOMITING 07/28/2017 CHRISTOPHER CONTRERASTAMIKA Ot R60.9 EDEMA, UNSPECIFIED 07/28/2017 CHRISTOPHER CONTRERASTAMIKA Ot Z79.4 ALF (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 OF INSULIN 07/28/2017 CHRISTOPHER CONTRERASTAMIKA Ot Z95.5 PRESENCE OF CORONARY ANGIOPLASTY IMPLANT 01/04/2018 CAROL MARTINEZ MD Ot E10. 9 TYPE 1 DIABETES MELLITUS WITHOUT COMPLIC 01/04/2018 CAROL MARTINEZ MD Ot E78. 5 HYPERLIPIDEMIA, UNSPECIFIED 01/04/2018 CAROL MARTINEZ MD Ot I25. 10 ATHSCL HEART DISEASE OF [place] CORONARY 01/04/2018 CAROL MARTINEZ MD Ot I65. 29 OCCLUSION AND STENOSIS OF UNSPECIFIED CA 01/04/2018 CAROL MARTINEZ MD Ot I73. 9 PERIPHERAL VASCULAR DISEASE, UNSPECIFIED 01/04/2018 CAROL MARTINEZ MD Ot R06. 02 SHORTNESS OF BREATH 01/24/2018 CAROL MARTINEZ MD Ot E10. 9 TYPE 1 DIABETES MELLITUS WITHOUT COMPLIC 01/24/2018 CAROL MARTINEZ MD Ot E78. 5 HYPERLIPIDEMIA, UNSPECIFIED 01/24/2018 CAROL MARTINEZ MD Ot I25. 10 ATHSCL HEART DISEASE OF [place] CORONARY 01/24/2018 CAROL MARTINEZ MD Ot I65. 29 OCCLUSION AND STENOSIS OF UNSPECIFIED CA 01/24/2018 CAROL MARTINEZ MD Ot I73. 9 PERIPHERAL VASCULAR DISEASE, UNSPECIFIED 01/24/2018 CAROL MARTINEZ MD Ot R06. 02 SHORTNESS OF BREATH 12/26/2018 SILVA JONES, GE Casper Ot V72.84 EXAM PRE-OPERATIVE NOS 12/26/2018 GRICELDA JONES, PRADIP Oviedo Ot 443 .9 PERIPH VASCULAR DIS NOS 12/26/2018 GRICELDA JONES, PRADIP Oviedo Ot 707.10 ULCER OF LOWER LIMB NOS 12/26/2018 TAMIKA WHITE DO Ot 250.00 DIAB SHERRIE WO COMPL, TYPE II OR UNSPEC TY 12/26/2018 TAMIKA WHITE DO Ot 433.10 CAROTID ARTERY OCCLUSION W O CEREBRAL IN 12/26/2018 JESSICA MEJIA MD Ot 250.00 DIAB SHERRIE WO COMPL, TYPE II OR UNSPEC TY 12/26/2018 JESSICA MEJIA MD Ot 272.4 HYPERLIPIDEMIA NEC/NOS 12/26/2018 JESSICA MEJIA MD Ot 401.9 HYPERTENSION NOS 12/26/2018 JESSICA MEJIA MD Ot 414.00 CORON ATHEROSCLER NOS TYPE VESSEL, NATIV 12/26/2018 JESSICA MEJIA MD Ot 433.10 CAROTID ARTERY OCCLUSION W O CEREBRAL IN 12/26/2018 JESSICA MEJIA MD Ot 459.81 VENOUS INSUFFICIENCY NOS 12/26/2018 JESSICA MEJIA MD Ot 250.00 DIAB SHERRIE WO COMPL, TYPE II OR UNSPEC TY 12/26/2018 JESSICA MEJIA MD Ot 272.4 HYPERLIPIDEMIA NEC/NOS 12/26/2018 JESSICA MEJIA MD Ot 401.9 HYPERTENSION NOS 12/26/2018 JESSICA MEJIA MD Ot 414.00 CORON ATHEROSCLER NOS TYPE VESSEL, NATIV 12/26/2018 JESSICA MEJIA MD Ot 433.10 CAROTID ARTERY OCCLUSION W O CEREBRAL IN 12/26/2018 JESSICA MEJIA MD Ot 459.81 VENOUS INSUFFICIENCY NOS 12/26/2018 PERLA LEE MD Ot 433.10 CAROTID ARTERY OCCLUSION W O CEREBRAL IN 12/26/2018 PERLA LEE MD Ot V72.63 PRE-PROCEDURAL LABORATORY EXAMINATION 12/26/2018 PERLA LEE MD Ot V72.83 EXAM PRE-OPERATIVE NEC 12/26/2018 PERLA LEE MD Ot V74.8 SCREEN-BACTERIAL DIS NEC 12/26/2018 PRADIP MADISON MD Ot 250.80 DIAB W OTH SPEC MANIFEST, TYPE II OR UNS 12/26/2018 PRADIP MADISON MD Ot 414.01 CORONARY ATHEROSCLEROSIS OF [place] CORON 12/26/2018 PRADIP MADISON MD Ot 440.23 ATHEROSCL [place] ARTER EXTREMITIES W ULC 12/26/2018 PRADIP MADISON MD Ot 459.33 CHRONIC VENOUS HYPERTEN W ULCER/INFLAMMA 12/26/2018 PRADIP MADISON MD Ot 707.12 ULCER OF CALF 12/26/2018 PRADIP MADISON MD Ot 785 .9 CARDIOVAS SYS SYMP NEC 12/26/2018 PRADIP MADISON MD Ot V45.82 PERCUTANEOUS TRANSLUM CORON ANGIOPLASTY 12/26/2018 PRADIP MADISON MD Ot 443 .9 PERIPH VASCULAR DIS NOS 12/26/2018 PRADIP MADISON MD Ot 457 .1 OTHER LYMPHEDEMA 12/26/2018 PRADIP MADISON MD Ot 707.12 ULCER OF [place]F 12/26/2018 TAMIKA WHITE DO Ot 786.05 SHORTNESS OF BREATH 12/26/2018 CAROL MARTINEZ MD Ot E78. 2 MIXED HYPERLIPIDEMIA 12/26/2018 CAROL MARTIENZ MD Ot I10 ESSENTIAL (PRIMARY) HYPERTENSION 12/26/2018 CAROL MARTINEZ MD Ot I25. 10 ATHSCL HEART DISEASE OF [place] CORONARY 12/26/2018 CAROL MARTINEZ MD Ot R06. 02 SHORTNESS OF BREATH 12/26/2018 CAROL MARTINEZ MD Ot I73. 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 12/26/2018 PRADIP MADISON MD Ot I89 .0 LYMPHEDEMA, NOT ELSEWHERE CLASSIFIED 12/26/2018 PRADIP MADISON MD Ot L97.212 NON-PRESSURE CHRONIC ULCER OF RIGHT CALF 12/26/2018 PRADIP MADISON MD Ot E11.622 TYPE 2 DIABETES MELLITUS WITH OTHER SKIN 12/26/2018 PRADIP MADISON MD Ot E66.01 MORBID (SEVERE) OBESITY DUE TO EXCESS CA 12/26/2018 PRADIP MADISON MD Ot I70.232 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 12/26/2018 GRICELDA JONES, PRADIP Oviedo Ot 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 12/26/2018 GRICELDA JONES, PRADIP Oviedo Ot I89 .0 LYMPHEDEMA, NOT ELSEWHERE CLASSIFIED 12/26/2018 GRICELDA JONES, PRADIP Oviedo Ot L97.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 2 MIXED HYPERLIPIDEMIA 12/26/2018 CAROL MARTINEZ MD, Ot I10 ESSENTIAL (PRIMARY) HYPERTENSION 12/26/2018 CAROL MARTINEZ MD, Ot I25. 10 ATHSCL HEART DISEASE OF [place] CORONARY 12/26/2018 CAROL MARTINEZ MD Ot I65. 23 OCCLUSION AND STENOSIS OF [place] 12/26/2018 CAROL MARTINEZ MD Ot R06. 02 SHORTNESS OF BREATH 12/26/2018 MARTÍN FROST MD Ot K76.0 FATTY (CHANGE OF) LIVER, NOT ELSEWHERE C 12/26/2018 TAMIKA WHITE DO Ot N39.0 URINARY TRACT INFECTION, SITE NOT SPECIF 12/26/2018 TAMIKA WHITE DO Ot R31.9 HEMATURIA, UNSPECIFIED 12/26/2018 CAROL MARTINEZ MD Ot E10. 9 TYPE 1 DIABETES MELLITUS WITHOUT COMPLIC 12/26/2018 CAROL MARTINEZ MD Ot E78. 5 HYPERLIPIDEMIA, UNSPECIFIED 12/26/2018 CAROL MARTINEZ MD, Ot I25. 10 ATHSCL HEART DISEASE OF [place] CORONARY 12/26/2018 MICHELLE JONES, CAROL Recio Ot I65. 29 OCCLUSION AND STENOSIS OF UNSPECIFIED CA 12/26/2018 MICHELLE JONES, CAROL Recio Ot I73. 9 PERIPHERAL VASCULAR DISEASE, UNSPECIFIED 12/26/2018 MICHELLE JONES, CAROL Recio Ot R06. 02 SHORTNESS OF BREATH 12/31/2018 GELMCLAREN OAKLANDDER DO, TAMIKA Melchor Ot D64.9 ANEMIA, UNSPECIFIED 12/31/2018 GELLENDER DO, TAMIKA Melchor Ot E11.40 TYPE 2 DIABETES MELLITUS WITH DIABETIC N 12/31/2018 GELLENDER DO, TAMIKA Melchor Ot E11.622 TYPE 2 DIABETES MELLITUS WITH OTHER SKIN 12/31/2018 GELLENDER , TAMIKA Melchor Ot E78.00 PURE HYPERCHOLESTEROLEMIA, UNSPECIFIED 12/31/2018 [facility] TAMIKA Melchor Ot F03.90 UNSPECIFIED DEMENTIA WITHOUT BEHAVIORAL 12/31/2018 [facility] , TAMIKA Melchor Ot G47.30 SLEEP APNEA, UNSPECIFIED 12/31/2018 [facility] TAMIKA Melchor Ot I10 ESSENTIAL (PRIMARY) HYPERTENSION 12/31/2018 [facility], TAMIKA Melchor Ot I25.10 ATHSCL HEART DISEASE OF [place] CORONARY 12/31/2018 [facility], TAMIKA Melchor Ot I49.5 SICK SINUS SYNDROME 12/31/2018 [facility], TAMIKA Melchor Ot I73.9 PERIPHERAL VASCULAR DISEASE, UNSPECIFIED 12/31/2018 [facility] TAMIKA Ot J44.9 CHRONIC OBSTRUCTIVE PULMONARY DISEASE, U 12/31/2018 [facility] Ot K21.9 GASTRO-ESOPHAGEAL REFLUX DISEASE WITHOUT 12/31/2018 GELLENDER DOTAMIKA Ot L97.919 NON-PRS CHRONIC ULC UNSP PRT OF R LOW LE 12/31/2018 GELLENDER DOTAMIKA Ot L97.929 NON-PRS CHRONIC ULC UNSP PRT OF L LOW LE 12/31/2018 [facility], TAMIKA Melchor Ot M19.90 UNSPECIFIED OSTEOARTHRITIS, UNSPECIFIED 12/31/2018 [facility] DOTAMIKA Ot N28.9 DISORDER OF KIDNEY AND URETER, UNSPECIFI 12/31/2018 GELLENDER DOTAMIKA Ot R07.9 CHEST PAIN, UNSPECIFIED 12/31/2018 [facility] Ot Z79.4 ALF (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 OF INSULIN 12/31/2018 [facility] Ot Z79.82 ALF (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 OF ASPIRIN 12/31/2018 [facility], TAMIKA Melchor Ot Z79.891 SERVICE CLERK (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 OF OPIATE ANALGE 12/31/2018 [facility], TAMIKA Melchor Ot Z82.61 FAMILY HISTORY OF ARTHRITIS 12/31/2018 [facility], TAMIKA Melchor Ot Z86.79 PERSONAL HISTORY OF OTHER DISEASES OF TH 12/31/2018 [facility] , TAMIKA Melchor Ot Z88.0 ALLERGY STATUS TO PENICILLIN 12/31/2018 [facility], TAMIKA Melchor Ot Z88.1 ALLERGY STATUS TO OTHER ANTIBIOTIC AGENT 12/31/2018 [facility], TAMIKA Melchor Ot Z90.89 ACQUIRED ABSENCE OF OTHER ORGANS 12/31/2018 [facility] , TAMIKA Melchor Ot Z95.1 PRESENCE OF AORTOCORONARY BYPASS GRAFT 01/07/2019 [facility], TAMIKA Melchor Ot D64.9 ANEMIA, UNSPECIFIED 01/07/2019 [facility], TAMIKA Melchor Ot E11.40 TYPE 2 DIABETES MELLITUS WITH DIABETIC N 01/07/2019 [facility], TAMIKA Melchor Ot E11.622 TYPE 2 DIABETES MELLITUS WITH OTHER SKIN 01/07/2019 [facility], TAMIKA Melchor Ot E78.00 PURE HYPERCHOLESTEROLEMIA, UNSPECIFIED 01/07/2019 [facility], TAMIKA Melchor Ot F03.90 UNSPECIFIED DEMENTIA WITHOUT BEHAVIORAL 01/07/2019 [facility], TAMIKA Melchor Ot G47.30 SLEEP APNEA, UNSPECIFIED 01/07/2019 [facility], TAMIKA Melchor Ot I10 ESSENTIAL (PRIMARY) HYPERTENSION 01/07/2019 [facility], TAMIKA Melchor Ot I25.10 ATHSCL HEART DISEASE OF [place] CORONARY 01/07/2019 [facility], TAMIKA Melchor Ot I49.5 SICK SINUS SYNDROME 01/07/2019 [facility], TAMIKA Melchor Ot I73.9 PERIPHERAL VASCULAR DISEASE, UNSPECIFIED 01/07/2019 [facility], TAMIKA Melchor Ot J44.9 CHRONIC OBSTRUCTIVE PULMONARY DISEASE, U 01/07/2019 [facility], TAMIKA Melchor Ot K21.9 GASTRO-ESOPHAGEAL REFLUX DISEASE WITHOUT 01/07/2019 GELLENDER , TAMIKA Melchor Ot L97.919 NON-PRS CHRONIC ULC UNSP PRT OF R LOW LE 01/07/2019, TAMIKA Melchor Ot L97.929 NON-PRS CHRONIC ULC UNSP PRT OF L LOW LE 01/07/2019 [facility], TAMIKA Melchor Ot M19.90 UNSPECIFIED OSTEOARTHRITIS, UNSPECIFIED 01/07/2019, TAMIKA Melchor Ot N28.9 DISORDER OF KIDNEY AND URETER, UNSPECIFI 01/07/2019, TAMIKA Melchor Ot R07.9 CHEST PAIN, UNSPECIFIED 01/07/2019, TAMIKA Melchor Ot Z79.4 ALF (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 OF INSULIN 01/07/2019, TAMIKA Melchor Ot Z79.82 ALF (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 OF ASPIRIN 01/07/2019, TAMIKA Melchor Ot Z79.891 SERVICE CLERK (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 OF OPIATE ANALGE 01/07/2019, TAMIKA Melchor Ot Z82.61 FAMILY HISTORY OF ARTHRITIS 01/07/2019, TAMIKA Melchor Ot Z86.79 PERSONAL HISTORY OF OTHER DISEASES OF TH 01/07/2019 [facility], TAMIKA Melchor Ot Z88.0 ALLERGY STATUS TO PENICILLIN 01/07/2019, TAMIKA Melchor Ot Z88.1 ALLERGY STATUS TO OTHER ANTIBIOTIC AGENT 01/07/2019, TAMIKA Melchor Ot Z90.89 ACQUIRED ABSENCE OF OTHER ORGANS 01/07/2019 [facility], TAMIKA Melchor Ot Z95.1 PRESENCE OF AORTOCORONARY BYPASS GRAFT 01/07/2019 [facility], TAMIKA Melchor Ot D64.9 ANEMIA, UNSPECIFIED 01/07/2019 [facility], TAMIKA Melchor Ot E11.40 TYPE 2 DIABETES MELLITUS WITH DIABETIC N 01/07/2019 [facility], TAMIKA Melchor Ot E11.622 TYPE 2 DIABETES MELLITUS WITH OTHER SKIN 01/07/2019 [facility], TAMIKA Melchor Ot E78.00 PURE HYPERCHOLESTEROLEMIA, UNSPECIFIED 01/07/2019, TAMIKA Melchor Ot F03.90 UNSPECIFIED DEMENTIA WITHOUT BEHAVIORAL 01/07/2019 [facility], TAMIKA Melchor Ot G47.30 SLEEP APNEA, UNSPECIFIED 01/07/2019 [facility], TAMIKA Melchor Ot I10 ESSENTIAL (PRIMARY) HYPERTENSION 01/07/2019 [facility], TAMIKA Melchor Ot I25.10 ATHSCL HEART DISEASE OF [place] CORONARY 01/07/2019 [facility], TAMIKA Melchor Ot I49.5 SICK SINUS SYNDROME 01/07/2019DER DO, TAMIKA Melchor Ot I73.9 PERIPHERAL VASCULAR DISEASE, UNSPECIFIED 01/07/2019 GELLENDER , TAMIKA Melchor Ot J44.9 CHRONIC OBSTRUCTIVE PULMONARY DISEASE, U 01/07/2019 GELLENDER , TAMIKA Melchor Ot K21.9 GASTRO-ESOPHAGEAL REFLUX DISEASE WITHOUT 01/07/2019 GELLENDER DO, TAMIKA Melchor Ot L97.919 NON-PRS CHRONIC ULC UNSP PRT OF R LOW LE 01/07/2019 GELLENDER , TAMIKA Melchor Ot L97.929 NON-PRS CHRONIC ULC UNSP PRT OF L LOW LE 01/07/2019 GELDER DO, TAMIKA Melchor Ot M19.90 UNSPECIFIED OSTEOARTHRITIS, UNSPECIFIED 01/07/2019 GELLENDER , TAMIKA Melchor Ot N28.9 DISORDER OF KIDNEY AND URETER, UNSPECIFI 01/07/2019 GELDER , TAMIKA Melchor Ot R07.9 CHEST PAIN, UNSPECIFIED 01/07/2019 [facility] , TAMIKA Melchor Ot Z79.4 ALF (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 OF INSULIN 01/07/2019, TAMIKA Melchor Ot Z79.82 ALF (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 OF ASPIRIN 01/07/2019, TAMIKA Melchor Ot Z79.891 SERVICE CLERK (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 OF OPIATE ANALGE 01/07/2019 [facility], TAMIKA Melchor Ot Z82.61 FAMILY HISTORY OF ARTHRITIS 01/07/2019 GELDER , TAMIKA Melchor Ot Z86.79 PERSONAL HISTORY OF OTHER DISEASES OF TH 01/07/2019 [facility] , TAMIKA Melchor Ot Z88.0 ALLERGY STATUS TO PENICILLIN 01/07/2019 [facility], TAMIKA eMlchor Ot Z88.1 ALLERGY STATUS TO OTHER ANTIBIOTIC AGENT 01/07/2019 [facility] , TAMIKA Melchor Ot Z90.89 ACQUIRED ABSENCE OF OTHER ORGANS 01/07/2019 [facility] , TAMIKA Melchor Ot Z95.1 PRESENCE OF AORTOCORONARY BYPASS GRAFT 01/07/2019 [facility], TAMIKA Melchor Ot D64.9 ANEMIA, UNSPECIFIED 01/07/2019 GELLENDER , TAMIKA Melchor Ot E11.40 TYPE 2 DIABETES MELLITUS WITH DIABETIC N 01/07/2019 GELLENDER , TAMIKA Melchor Ot E11.622 TYPE 2 DIABETES MELLITUS WITH OTHER SKIN 01/07/2019 [facility] , TAMIKA Melchor Ot E78.00 PURE HYPERCHOLESTEROLEMIA, UNSPECIFIED 01/07/2019 GELLENDER DO, TAMIKA Melchor Ot F03.90 UNSPECIFIED DEMENTIA WITHOUT BEHAVIORAL 01/07/2019 GELLENDER DO, TAMIKA Melchor Ot G47.30 SLEEP APNEA, UNSPECIFIED 01/07/2019 GELLENDER DO, TAMIKA Melchor Ot I10 ESSENTIAL (PRIMARY) HYPERTENSION 01/07/2019 GELLENDER DO, TAMIKA Melchor Ot I25.10 ATHSCL HEART DISEASE OF [place] CORONARY 01/07/2019 GELLENDER DO, TAMIKA Melchor Ot I49.5 SICK SINUS SYNDROME 01/07/2019 GELLENDER DO, TAMIKA Melchor Ot I73.9 PERIPHERAL VASCULAR DISEASE, UNSPECIFIED 01/07/2019 GELLENDER DO, TAMIKA Melchor Ot J44.9 CHRONIC OBSTRUCTIVE PULMONARY DISEASE, U 01/07/2019 GELLENDER DO, TAMIKA Melchor Ot K21.9 GASTRO-ESOPHAGEAL REFLUX DISEASE WITHOUT 01/07/2019 GELLENDER DO, TAMIKA Melchor Ot L97.919 NON-PRS CHRONIC ULC UNSP PRT OF R LOW LE 01/07/2019 GELLENDER DO, TAMIKA Melchor Ot L97.929 NON-PRS CHRONIC ULC UNSP PRT OF L LOW LE 01/07/2019 GELLENDER DO, TAMIKA Melchor Ot M19.90 UNSPECIFIED OSTEOARTHRITIS, UNSPECIFIED 01/07/2019 GELLENDER DO, TAMIKA Melchor Ot N28.9 DISORDER OF KIDNEY AND URETER, UNSPECIFI 01/07/2019 GELLENDER DO, TAMIKA Melchor Ot R07.9 CHEST PAIN, UNSPECIFIED 01/07/2019 GELLENDER DO, TAMIKA Melchor Ot 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 01/07/2019 GELLENDER DO, TAMIKA Melchor Ot Z79.82 SERVICE CLERK (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 OF ASPIRIN 01/07/2019 GELLENDER DO, TAMIKA Melchor Ot Z79.891 ALF (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 OF OPIATE ANALGE 01/07/2019 GELLENDER DO, TAMIKA Melchor Ot Z82.61 FAMILY HISTORY OF ARTHRITIS 01/07/2019 GELLENDER DO, TAMIKA Melchor Ot Z86.79 PERSONAL HISTORY OF OTHER DISEASES OF TH 01/07/2019 GELLENDER DO, TAMIKA Melchor Ot Z88.0 ALLERGY STATUS TO PENICILLIN 01/07/2019 GELLENDER DO, TAMIKA Melchor Ot Z88.1 ALLERGY STATUS TO OTHER ANTIBIOTIC AGENT 01/07/2019 GELLENDER DO, TAMIKA Melchor Ot Z90.89 ACQUIRED ABSENCE OF OTHER ORGANS 01/07/2019 [facility], TAMIKA Melchor Ot Z95.1 PRESENCE OF AORTOCORONARY BYPASS GRAFT 01/11/2019 [facility] , TAMIKA Melchor Ot D64.9 ANEMIA, UNSPECIFIED 01/11/2019 [facility], TAMIKA Melchor Ot E11.40 TYPE 2 DIABETES MELLITUS WITH DIABETIC N 01/11/2019 [facility], TAMIKA Melchor Ot E11.622 TYPE 2 DIABETES MELLITUS WITH OTHER SKIN 01/11/2019 [facility], TAMIKA eMlchor Ot E78.00 PURE HYPERCHOLESTEROLEMIA, UNSPECIFIED 01/11/2019, TAMIKA Melchor Ot F03.90 UNSPECIFIED DEMENTIA WITHOUT BEHAVIORAL 01/11/2019 [facility], TAMIKA Melchor Ot G47.30 SLEEP APNEA, UNSPECIFIED 01/11/2019, TAMIKA Melchor Ot I10 ESSENTIAL (PRIMARY) HYPERTENSION 01/11/2019, TAMIKA Melchor Ot I25.10 ATHSCL HEART DISEASE OF [place] CORONARY 01/11/2019 [facility] TAMIKA Melchor Ot I49.5 SICK SINUS SYNDROME 01/11/2019, TAMIKA Melchor Ot I73.9 PERIPHERAL VASCULAR DISEASE, UNSPECIFIED 01/11/2019, TAMIKA Melchor Ot J44.9 CHRONIC OBSTRUCTIVE PULMONARY DISEASE, U 01/11/2019 [facility], TAMIKA Melchor Ot K21.9 GASTRO-ESOPHAGEAL REFLUX DISEASE WITHOUT 01/11/2019 [facility], TAMIKA Melchor Ot L97.919 NON-PRS CHRONIC ULC UNSP PRT OF R LOW LE 01/11/2019 [facility], TAMIKA Melchor Ot L97.929 NON-PRS CHRONIC ULC UNSP PRT OF L LOW LE 01/11/2019, TAMIKA Melchor Ot M19.90 UNSPECIFIED OSTEOARTHRITIS, UNSPECIFIED 01/11/2019[facility] [place], TAMIKA Melchor Ot N28.9 DISORDER OF KIDNEY AND URETER, UNSPECIFI 01/11/2019, TAMIKA Melchor Ot R07.9 CHEST PAIN, UNSPECIFIED 01/11/2019, TAMIKA Melchor Ot Z79.4 ALF (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 OF INSULIN 01/11/2019 [facility], TAMIKA Melchor Ot Z79.82 SERVICE CLERK (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 OF ASPIRIN 01/11/2019 [facility], TAMIKA Melchor Ot Z79.891 ALF (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 OF OPIATE ANALGE 01/11/2019 [facility] , TAMIKA Melchor Ot Z82.61 FAMILY HISTORY OF ARTHRITIS 01/11/2019 GELDER , TAMIKA Melchor Ot Z86.79 PERSONAL HISTORY OF OTHER DISEASES OF TH 01/11/2019 [facility] , TAMIKA Melchor Ot Z88.0 ALLERGY STATUS TO PENICILLIN 01/11/2019 GELDER , TAMIKA Melchor Ot Z88.1 ALLERGY STATUS TO OTHER ANTIBIOTIC AGENT 01/11/2019 GELDER , TAMIKA Melchor Ot Z90.89 ACQUIRED ABSENCE OF OTHER ORGANS 01/11/2019[facility] , TAMIKA Melchor Ot Z95.1 PRESENCE OF AORTOCORONARY BYPASS GRAFT 01/16/2019, TAMIKA Melchor Ot D64.9 ANEMIA, UNSPECIFIED 01/16/2019 GELDER , TAMIKA Melchor Ot E11.40 TYPE 2 DIABETES MELLITUS WITH DIABETIC N 01/16/2019 [facility] , TAMIKA Melchor Ot E11.622 TYPE 2 DIABETES MELLITUS WITH OTHER SKIN 01/16/2019DER , TAMIKA Melchor Ot E78.00 PURE HYPERCHOLESTEROLEMIA, UNSPECIFIED 01/16/2019 GELLENDER DO, TAMIKA Melchor Ot F03.90 UNSPECIFIED DEMENTIA WITHOUT BEHAVIORAL 01/16/2019 GELLENDER DO, TAMIKA Melchor Ot G47.30 SLEEP APNEA, UNSPECIFIED 01/16/2019 [facility]END[facility] , TAMIKA Melchor Ot I10 ESSENTIAL (PRIMARY) HYPERTENSION 01/16/2019, TAMIKA Melchor Ot I25.10 ATHSCL HEART DISEASE OF [place] CORONARY 01/16/2019, TAMIKA Melchor Ot I49.5 SICK SINUS SYNDROME 01/16/2019LEND[facility] , TAMIKA Melchor Ot I73.9 PERIPHERAL VASCULAR DISEASE, UNSPECIFIED 01/16/2019 [facility] , TAMIKA Melchor Ot J44.9 CHRONIC OBSTRUCTIVE PULMONARY DISEASE, U 01/16/2019[facility] , TAMIKA Melchor Ot K21.9 GASTRO-ESOPHAGEAL REFLUX DISEASE WITHOUT 01/16/2019 GELLENDER DO, TAMIKA Melchor Ot L97.919 NON-PRS CHRONIC ULC UNSP PRT OF R LOW LE 01/16/2019 GELLENDER DO, TAMIKA Melchor Ot L97.929 NON-PRS CHRONIC ULC UNSP PRT OF L LOW LE 01/16/2019 GELLENDER DO, TAMIKA Melchor Ot M19.90 UNSPECIFIED OSTEOARTHRITIS, UNSPECIFIED 01/16/2019 GELLENDER DO, TAMIKA Melchor Ot N28.9 DISORDER OF KIDNEY AND URETER, UNSPECIFI 01/16/2019 GELLENDER DO, TAMIKA Melchor Ot R07.9 CHEST PAIN, UNSPECIFIED 01/16/2019 GELLENDER DO, TAMIKA Melchor Ot Z79.4 ALF (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 OF INSULIN 01/16/2019 GELLENDER DO, TAMIKA Melchor Ot Z79.82 ALF (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 OF ASPIRIN 01/16/2019 GELLENDER DO, TAMIKA Melchor Ot Z79.891 ALF (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 OF OPIATE ANALGE 01/16/2019 GELLENDER DO, TAMIKA Melchor Ot Z82.61 FAMILY HISTORY OF ARTHRITIS 01/16/2019 GELLENDER DO, TAMIKA Melchor Ot Z86.79 PERSONAL HISTORY OF OTHER DISEASES OF TH 01/16/2019 GELLENDER DO, TAMIKA Melchor Ot Z88.0 ALLERGY STATUS TO PENICILLIN 01/16/2019 GELLENDER DO, TAMIKA Melchor Ot Z88.1 ALLERGY STATUS TO OTHER ANTIBIOTIC AGENT 01/16/2019 GELLENDER DO, TAMIKA Melchor Ot Z90.89 ACQUIRED ABSENCE OF OTHER ORGANS 01/16/2019 GELLENDER DO, TAMIKA Melchor Ot Z95.1 PRESENCE OF AORTOCORONARY BYPASS GRAFT 03/21/2019 GELLENDER DO, TAMIKA Melchor Ot D64.9 ANEMIA, UNSPECIFIED 03/21/2019 GELLENDER DO, TAMIKA Melchor Ot E11.40 TYPE 2 DIABETES MELLITUS WITH DIABETIC N 03/21/2019 GELLENDER DO, TAMIKA Melchor Ot E11.622 TYPE 2 DIABETES MELLITUS WITH OTHER SKIN 03/21/2019 GELLENDER DO, TAMIKA Melchor Ot E78.00 PURE HYPERCHOLESTEROLEMIA, UNSPECIFIED 03/21/2019 GELLENDER DO, TAMIKA Melchor Ot F03.90 UNSPECIFIED DEMENTIA WITHOUT BEHAVIORAL 03/21/2019 GELLENDER DO, TAMIKA Melchor Ot G47.30 SLEEP APNEA, UNSPECIFIED 03/21/2019 GELLENDER DO, TAMIKA Melchor Ot I10 ESSENTIAL (PRIMARY) HYPERTENSION 03/21/2019 GELLENDER DO, TAMIKA Melchor Ot I25.10 ATHSCL HEART DISEASE OF [place] CORONARY 03/21/2019 GELLENDER DO, TAMIKA Melchor Ot I49.5 SICK SINUS SYNDROME 03/21/2019 GELLENDER DO, TAMIKA Melchor Ot I73.9 PERIPHERAL VASCULAR DISEASE, UNSPECIFIED 03/21/2019 GELLENDER DO, TAMIKA Melchor Ot J44.9 CHRONIC OBSTRUCTIVE PULMONARY DISEASE, U 03/21/2019 GELLENDER DO, TAMIKA Melchor Ot K21.9 GASTRO-ESOPHAGEAL REFLUX DISEASE WITHOUT 03/21/2019 GELLENDER DO, TAMIKA Melchor Ot L97.919 NON-PRS CHRONIC ULC UNSP PRT OF R LOW LE 03/21/2019 GELLENDER DO, TAMIKA Melchor Ot L97.929 NON-PRS CHRONIC ULC UNSP PRT OF L LOW LE 03/21/2019 GELLENDER DO, TAMIKA Melchor Ot M19.90 UNSPECIFIED OSTEOARTHRITIS, UNSPECIFIED 03/21/2019 GELLENDER DO, TAMIKA Melchor Ot N28.9 DISORDER OF KIDNEY AND URETER, UNSPECIFI 03/21/2019 GELLENDER DO, TAMIKA Melchor Ot R07.9 CHEST PAIN, UNSPECIFIED 03/21/2019 GELLENDER DO, TAMIKA Melchor Ot 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 03/21/2019 GELLENDER DO, TAMIKA Melchor Ot Z79.82 ALF (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 OF ASPIRIN 03/21/2019 GELLENDER DO, TAMIKA Melchor Ot Z79.891 ALF (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 OF OPIATE ANALGE 03/21/2019 GELLENDER DO, TAMIKA Melchor Ot Z82.61 FAMILY HISTORY OF ARTHRITIS 03/21/2019 GELLENDER DO, TAMIKA Melchor Ot Z86.79 PERSONAL HISTORY OF OTHER DISEASES OF TH 03/21/2019 GELLENDER DO, TAMIKA Melchor Ot Z88.0 ALLERGY STATUS TO PENICILLIN 03/21/2019 GELLENDER DO, TAMIKA Melchor Ot Z88.1 ALLERGY STATUS TO OTHER ANTIBIOTIC AGENT 03/21/2019 GELLENDER DO, TAMIKA Melchor Ot Z90.89 ACQUIRED ABSENCE OF OTHER ORGANS 03/21/2019 GELLENDER DO, TAMIKA Melchor Ot Z95.1 PRESENCE OF AORTOCORONARY BYPASS GRAFT 04/05/2019 GELLENDER DO, TAMIKA Melchor Ot E11.40 TYPE 2 DIABETES MELLITUS WITH DIABETIC N 04/05/2019 GELLENDER DO, TAMIKA Melchor Ot E11.51 TYPE 2 DIABETES W DIABETIC PERIPHERAL AN 04/05/2019 GELLENDER DO, TAMIKA Melchor Ot E11.622 TYPE 2 DIABETES MELLITUS WITH OTHER SKIN 04/05/2019 GELLENDER DO, TAMIKA Melchor Ot E66.01 MORBID (SEVERE) OBESITY DUE TO EXCESS CA 04/05/2019 GELLENDER DO, TAMIKA Melchor Ot E78.00 PURE HYPERCHOLESTEROLEMIA, UNSPECIFIED 04/05/2019 GELLENDER DO, TMAIKA Melchor Ot F03.90 UNSPECIFIED DEMENTIA WITHOUT BEHAVIORAL 04/05/2019 GELLENDER DO, TAMIKA Melchor Ot G47.30 SLEEP APNEA, UNSPECIFIED 04/05/2019 GELLENDER DO, TAMIKA Melchor Ot I10 ESSENTIAL (PRIMARY) HYPERTENSION 04/05/2019 GELLENDER DO, TAMIKA Melchor Ot I25.10 ATHSCL HEART DISEASE OF [place] CORONARY 04/05/2019 GELLENDER DO, TAMIKA Melchor Ot I25.2 OLD MYOCARDIAL INFARCTION 04/05/2019 GELLENDER DO, TAMIKA Melchor Ot I49.9 CARDIAC ARRHYTHMIA, UNSPECIFIED 04/05/2019 GELLENDER DO, TAMIKA Melchor Ot J44.9 CHRONIC OBSTRUCTIVE PULMONARY DISEASE, U 04/05/2019 GELLENDER DO, TAMIKA Melchor Ot K21.9 GASTRO-ESOPHAGEAL REFLUX DISEASE WITHOUT 04/05/2019 GELLENDER DO, TAMIKA Melchor Ot M19.91 PRIMARY OSTEOARTHRITIS, UNSPECIFIED SITE 04/05/2019 GELLENDER DO, TAMIKA Melchor Ot N28.9 DISORDER OF KIDNEY AND URETER, UNSPECIFI 04/05/2019 GELLENDER DO, TAMIKA Melchor Ot N39.0 URINARY TRACT INFECTION, SITE NOT SPECIF 04/05/2019 GELLENDER DO, TAMIKA Melchor Ot R41.0 DISORIENTATION, UNSPECIFIED 04/05/2019 GELLENDER DO, TAMIKA Melchor Ot Z60.2 PROBLEMS RELATED TO LIVING ALONE 04/05/2019 GELLENDER DO, TAMIKA Melchor Ot Z68.41 BODY MASS INDEX (BMI) 40.0-44.9, ADULT 04/05/2019 [facility] Mel[facility] Ot Z79.4 ALF (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 OF INSULIN 04/05/2019 GELLENDER DO, TAMIKA Melchor Ot Z95.1 PRESENCE OF AORTOCORONARY BYPASS GRAFT 04/05/2019 GELLENDER DO, TAMIKA Melchor Ot Z95.5 PRESENCE OF CORONARY ANGIOPLASTY IMPLANT 04/05/2019 GELLENDER DO, TAMIKA Melchor Ot Z96.651 PRESENCE OF RIGHT ARTIFICIAL KNEE JOINT 04/05/2019 GELLENDER DO, TAMIKA Melchor Ot E11.40 TYPE 2 DIABETES MELLITUS WITH DIABETIC N 04/05/2019 GELLENDER DO, TAMIKA Melchor Ot E11.51 TYPE 2 DIABETES W DIABETIC PERIPHERAL AN 04/05/2019 GELLENDER DO, TAMIKA Melchor Ot E11.622 TYPE 2 DIABETES MELLITUS WITH OTHER SKIN 04/05/2019 GELLENDER DO, TAMIKA Melchor Ot E66.01 MORBID (SEVERE) OBESITY DUE TO EXCESS CA 04/05/2019 GELLENDER DO, TAMIKA Melchor Ot E78.00 PURE HYPERCHOLESTEROLEMIA, UNSPECIFIED 04/05/2019 GELLENDER DO, TAMIKA Melchor Ot F03.90 UNSPECIFIED DEMENTIA WITHOUT BEHAVIORAL 04/05/2019 GELLENDER DO, TAMIKA Melchor Ot G47.30 SLEEP APNEA, UNSPECIFIED 04/05/2019 GELLENDER DO, TAMIKA Melchor Ot I10 ESSENTIAL (PRIMARY) HYPERTENSION 04/05/2019 GELLENDER DO, TAMIKA Melchor Ot I25.10 ATHSCL HEART DISEASE OF [place] CORONARY 04/05/2019 GELLENDER DO, TAMIKA Melchor Ot I25.2 OLD MYOCARDIAL INFARCTION 04/05/2019 GELLENDER DO, TAMIKA Melchor Ot I49.9 CARDIAC ARRHYTHMIA, UNSPECIFIED 04/05/2019 GELLENDER DO, TAMIKA Melchor Ot J44.9 CHRONIC OBSTRUCTIVE PULMONARY DISEASE, U 04/05/2019 GELLENDER DO, TAMIKA Melchor Ot K21.9 GASTRO-ESOPHAGEAL REFLUX DISEASE WITHOUT 04/05/2019 GELLENDER DO, TAMIKA Melchor Ot M19.91 PRIMARY OSTEOARTHRITIS, UNSPECIFIED SITE 04/05/2019 GELLENDER DO, TAMIKA Melchor Ot N28.9 DISORDER OF KIDNEY AND URETER, UNSPECIFI 04/05/2019 GELLENDER DO, TAMIKA Melchor Ot N39.0 URINARY TRACT INFECTION, SITE NOT SPECIF 04/05/2019 GELLENDER DO, TAMIKA Mlechor Ot R41.0 DISORIENTATION, UNSPECIFIED 04/05/2019 GELLENDER DO, TAMIKA Melchor Ot Z60.2 PROBLEMS RELATED TO LIVING ALONE 04/05/2019 GELLENDER DO, TAMIKA Melchor Ot Z68.41 BODY MASS INDEX (BMI) 40.0-44.9, ADULT 04/05/2019 GELLENDER DO, TAMIKA Melchor Ot 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 04/05/2019 GELLENDER DO, TAMIKA Melchor Ot Z95.1 PRESENCE OF AORTOCORONARY BYPASS GRAFT 04/05/2019 GELLENDER DO, TAMIKA Melchor Ot Z95.5 PRESENCE OF CORONARY ANGIOPLASTY IMPLANT 04/05/2019 GELLENDER DO, TAMIKA Melchor Ot Z96.651 PRESENCE OF RIGHT ARTIFICIAL KNEE JOINT 04/05/2019 GELLENDER DO, TAMIKA Melchor Ot E11.40 TYPE 2 DIABETES MELLITUS WITH DIABETIC N 04/05/2019 GELLENDER DO, TAMIKA Melchor Ot E11.51 TYPE 2 DIABETES W DIABETIC PERIPHERAL AN 04/05/2019 GELLENDER DO, TAMIKA Melchor Ot E11.622 TYPE 2 DIABETES MELLITUS WITH OTHER SKIN 04/05/2019 GELLENDER DO, TAMIKA Melchor Ot E66.01 MORBID (SEVERE) OBESITY DUE TO EXCESS CA 04/05/2019 GELLENDER DO, TAMIKA Melchor Ot E78.00 PURE HYPERCHOLESTEROLEMIA, UNSPECIFIED 04/05/2019 GELLENDER DO, TAMIKA Melchor Ot F03.90 UNSPECIFIED DEMENTIA WITHOUT BEHAVIORAL 04/05/2019 GELLENDER DO, TAMIKA Melchor Ot G47.30 SLEEP APNEA, UNSPECIFIED 04/05/2019 GELLENDER DO, TAMIKA Melchor Ot I10 ESSENTIAL (PRIMARY) HYPERTENSION 04/05/2019 GELLENDER DO, TAMIKA Melchor Ot I25.10 ATHSCL HEART DISEASE OF [place] CORONARY 04/05/2019 GELLENDER DO, TAMIKA Melchor Ot I25.2 OLD MYOCARDIAL INFARCTION 04/05/2019 GELLENDER DO, TAMIKA Melchor Ot I49.9 CARDIAC ARRHYTHMIA, UNSPECIFIED 04/05/2019 GELLENDER DO, TAMIKA Melchor Ot J44.9 CHRONIC OBSTRUCTIVE PULMONARY DISEASE, U 04/05/2019 GELLENDER DO, TAMIKA Melchor Ot K21.9 GASTRO-ESOPHAGEAL REFLUX DISEASE WITHOUT 04/05/2019 GELLENDER DO, TAMIKA Melchor Ot M19.91 PRIMARY OSTEOARTHRITIS, UNSPECIFIED SITE 04/05/2019 GELLENDER DO, TAMIKA Melchor Ot N28.9 DISORDER OF KIDNEY AND URETER, UNSPECIFI 04/05/2019 GELLENDER DO, TAMIKA Melchor Ot N39.0 URINARY TRACT INFECTION, SITE NOT SPECIF 04/05/2019 GELLENDER DO, TAMIKA Melchor Ot R41.0 DISORIENTATION, UNSPECIFIED 04/05/2019 GELLENDER DO, TAMIKA Melchor Ot Z60.2 PROBLEMS RELATED TO LIVING ALONE 04/05/2019 GELLENDER DO, TAMIKA Melchor Ot Z68.41 BODY MASS INDEX (BMI) 40.0-44.9, ADULT 04/05/2019 GELLENDER DO, TAMIKA Melchor Ot 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 04/05/2019 GELLENDER DO, TAMIKA Melchor Ot Z95.1 PRESENCE OF AORTOCORONARY BYPASS GRAFT 04/05/2019 GELLENDER DO, TAMIKA Melchor Ot Z95.5 PRESENCE OF CORONARY ANGIOPLASTY IMPLANT 04/05/2019 GELLENDER DO, TAMIKA Melchor Ot Z96.651 PRESENCE OF RIGHT ARTIFICIAL KNEE JOINT 04/06/2019 GELLENDER DO, TAMIKA Melchor Ot E11.40 TYPE 2 DIABETES MELLITUS WITH DIABETIC N 04/06/2019 GELLENDER DO, TAMIKA Melchor Ot E11.51 TYPE 2 DIABETES W DIABETIC PERIPHERAL AN 04/06/2019 GELLENDER DO, TAMIKA Melchor Ot E11.622 TYPE 2 DIABETES MELLITUS WITH OTHER SKIN 04/06/2019 GELLENDER DO, TAMIKA Melchor Ot E66.01 MORBID (SEVERE) OBESITY DUE TO EXCESS CA 04/06/2019 GELLENDER DO, TAMIKA Melchor Ot E78.00 PURE HYPERCHOLESTEROLEMIA, UNSPECIFIED 04/06/2019 GELLENDER DO, TAMIKA Melchor Ot F03.90 UNSPECIFIED DEMENTIA WITHOUT BEHAVIORAL 04/06/2019 GELLENDER DO, TAMIKA Melchor Ot G47.30 SLEEP APNEA, UNSPECIFIED 04/06/2019 GELLENDER DO, TAMIKA Melchor Ot I10 ESSENTIAL (PRIMARY) HYPERTENSION 04/06/2019 GELLENDER DO, TAMIKA Melchor Ot I25.10 ATHSCL HEART DISEASE OF [place] CORONARY 04/06/2019 GELLENDER DO, TAMIKA Melchor Ot I25.2 OLD MYOCARDIAL INFARCTION 04/06/2019 GELLENDER DO, TAMIKA Melchor Ot I49.9 CARDIAC ARRHYTHMIA, UNSPECIFIED 04/06/2019 GELLENDER DO, TAMIKA Melchor Ot J44.9 CHRONIC OBSTRUCTIVE PULMONARY DISEASE, U 04/06/2019 GELLENDER DO, TAMIKA Melchor Ot K21.9 GASTRO-ESOPHAGEAL REFLUX DISEASE WITHOUT 04/06/2019 GELLENDER DO, TAMIKA Melchor Ot M19.91 PRIMARY OSTEOARTHRITIS, UNSPECIFIED SITE 04/06/2019 GELLENDER DO, TAMIKA Melchor Ot N28.9 DISORDER OF KIDNEY AND URETER, UNSPECIFI 04/06/2019 GELLENDER DO, TAMIKA Melchor Ot N39.0 URINARY TRACT INFECTION, SITE NOT SPECIF 04/06/2019 GELLENDER DO, TAMIKA Melchor Ot R41.0 DISORIENTATION, UNSPECIFIED 04/06/2019 GELLENDER DO, TAMIKA Melchor Ot Z60.2 PROBLEMS RELATED TO LIVING ALONE 04/06/2019 GELLENDER DO, TAMIKA Melchor Ot Z68.41 BODY MASS INDEX (BMI) 40.0-44.9, ADULT 04/06/2019 GELLENDER DO, TAMIKA Melchor Ot 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 04/06/2019 GELLENDER DO, TAMIKA Melchor Ot Z95.1 PRESENCE OF AORTOCORONARY BYPASS GRAFT 04/06/2019 GELLENDER DO, TAMIKA Melchor Ot Z95.5 PRESENCE OF CORONARY ANGIOPLASTY IMPLANT 04/06/2019 GELLENDER DO, TAMIKA Melchor Ot Z96.651 PRESENCE OF RIGHT ARTIFICIAL KNEE JOINT 04/09/2019 GELLENDER DO, TAMIKA Melchor Ot E11.40 TYPE 2 DIABETES MELLITUS WITH DIABETIC N 04/09/2019 GELLENDER DO, TAMIKA Melchor Ot E11.51 TYPE 2 DIABETES W DIABETIC PERIPHERAL AN 04/09/2019 GELLENDER DO, TAMIKA Melchor Ot E11.622 TYPE 2 DIABETES MELLITUS WITH OTHER SKIN 04/09/2019 GELLENDER DO, TAMIKA Melchor Ot E66.01 MORBID (SEVERE) OBESITY DUE TO EXCESS CA 04/09/2019 GELLENDER DO, TAMIKA Melchor Ot E78.00 PURE HYPERCHOLESTEROLEMIA, UNSPECIFIED 04/09/2019 GELLENDER DO, TAMIKA Melchor Ot F03.90 UNSPECIFIED DEMENTIA WITHOUT BEHAVIORAL 04/09/2019 GELLENDER DO, TAMIKA Melchor Ot G47.30 SLEEP APNEA, UNSPECIFIED 04/09/2019 GELLENDER DO, TAMIKA Melchor Ot I10 ESSENTIAL (PRIMARY) HYPERTENSION 04/09/2019 GELLENDER DO, TAMIKA Melchor Ot I25.10 ATHSCL HEART DISEASE OF [place] CORONARY 04/09/2019 GELLENDER DO, TAMIKA Melchor Ot I25.2 OLD MYOCARDIAL INFARCTION 04/09/2019 GELLENDER DO, TAMIKA Melchor Ot I49.9 CARDIAC ARRHYTHMIA, UNSPECIFIED 04/09/2019 GELLENDER DO, TAMIKA Melchor Ot J44.9 CHRONIC OBSTRUCTIVE PULMONARY DISEASE, U 04/09/2019 GELLENDER DO, TAMIKA Melchor Ot K21.9 GASTRO-ESOPHAGEAL REFLUX DISEASE WITHOUT 04/09/2019 GELLENDER DO, TAMIKA Melchor Ot M19.91 PRIMARY OSTEOARTHRITIS, UNSPECIFIED SITE 04/09/2019 GELLENDER DO, TAMIKA Melchor Ot N28.9 DISORDER OF KIDNEY AND URETER, UNSPECIFI 04/09/2019 GELLENDER DO, TAMIKA Melchor Ot N39.0 URINARY TRACT INFECTION, SITE NOT SPECIF 04/09/2019 GELLENDER DO, TAMIKA Melchor Ot R41.0 DISORIENTATION, UNSPECIFIED 04/09/2019 GELLENDER DO, TAMIKA Melchor Ot Z60.2 PROBLEMS RELATED TO LIVING ALONE 04/09/2019 GELLENDER DO, TAMIKA Melchor Ot Z68.41 BODY MASS INDEX (BMI) 40.0-44.9, ADULT 04/09/2019 GELLENDER DO, TAMIKA Melchor Ot Z79.4 ALF (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 OF INSULIN 04/09/2019 GELLENDER DO, TAMIKA Melchor Ot Z95.1 PRESENCE OF AORTOCORONARY BYPASS GRAFT 04/09/2019 GELLENDER DO, TAMIKA Melchor Ot Z95.5 PRESENCE OF CORONARY ANGIOPLASTY IMPLANT 04/09/2019 GELLENDER DO, TAMIKA Melchor Ot Z96.651 PRESENCE OF RIGHT ARTIFICIAL KNEE JOINT 04/09/2019 GELLENDER DO, TAMIKA Melchor Ot B37.49 OTHER UROGENITAL CANDIDIASIS 04/09/2019 GELLENDER DO, TAMIKA Melchor Ot E11.40 TYPE 2 DIABETES MELLITUS WITH DIABETIC N 04/09/2019 GELLENDER DO, TAMIKA Melchor Ot E11.51 TYPE 2 DIABETES W DIABETIC PERIPHERAL AN 04/09/2019 GELLENDER DO, TAMIKA Melchor Ot E11.622 TYPE 2 DIABETES MELLITUS WITH OTHER SKIN 04/09/2019 GELLENDER DO, TAMIKA Melchor Ot E66.01 MORBID (SEVERE) OBESITY DUE TO EXCESS CA 04/09/2019 GELLENDER DO, TAMIKA Melchor Ot E78.00 PURE HYPERCHOLESTEROLEMIA, UNSPECIFIED 04/09/2019 GELLENDER DO, TAMIKA Melchor Ot F03.90 UNSPECIFIED DEMENTIA WITHOUT BEHAVIORAL 04/09/2019 GELLENDER DO, TAMIKA Melchor Ot G47.30 SLEEP APNEA, UNSPECIFIED 04/09/2019 GELLENDER DO, TAMIKA Melchor Ot I10 ESSENTIAL (PRIMARY) HYPERTENSION 04/09/2019 GELLENDER DO, TAMIKA Melchor Ot I25.10 ATHSCL HEART DISEASE OF [place] CORONARY 04/09/2019 GELLENDER DO, TAMIKA Melchor Ot I25.2 OLD MYOCARDIAL INFARCTION 04/09/2019 GELLENDER DO, TAMIKA Melchor Ot I49.5 SICK SINUS SYNDROME 04/09/2019 GELLENDER DO, TAMIKA Melchor Ot J44.9 CHRONIC OBSTRUCTIVE PULMONARY DISEASE, U 04/09/2019 GELLENDER DO, TAMIKA Melchor Ot K21.9 GASTRO-ESOPHAGEAL REFLUX DISEASE WITHOUT 04/09/2019 GELLENDER DO, TAMIKA Melchor Ot K80.00 CALCULUS OF GALLBLADDER W ACUTE CHOLECYS 04/09/2019 GELLENDER DO, TAMIKA Melchor Ot M19.91 PRIMARY OSTEOARTHRITIS, UNSPECIFIED SITE 04/09/2019 GELLENDER DO, TAMIKA Melchor Ot N28.9 DISORDER OF KIDNEY AND URETER, UNSPECIFI 04/09/2019 GELLENDER DO, TAMIKA Melchor Ot R32 UNSPECIFIED URINARY INCONTINENCE 04/09/2019 GELLENDER DO, TAMIKA Melchor Ot R39.15 URGENCY OF URINATION 04/09/2019 [facility], TAMIKA Melchor Ot R41.0 DISORIENTATION, UNSPECIFIED 04/09/2019 [facility], TAMIKA Melchor Ot Z60.2 PROBLEMS RELATED TO LIVING ALONE 04/09/2019 [facility], TAMIKA Melchor Ot Z68.41 BODY MASS INDEX (BMI) 40.0-44.9, ADULT 04[facility]09/2019 [facility] 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 04/09/2019 [facility], TAMIKA Melchor Ot Z95.1 PRESENCE OF AORTOCORONARY BYPASS GRAFT 04/09/2019 [facility], TAMIKA Melchor Ot Z95.5 PRESENCE OF CORONARY ANGIOPLASTY IMPLANT 04/09/2019 [facility] TAMIKA Melchor Ot Z96.651 PRESENCE OF RIGHT ARTIFICIAL KNEE JOINT Procedures Code Description Performed By Per el On 38.12 HEAD NECK ENDARTER NEC 07/30/2014 [id number] RE SPIRATORY VENTILATION, LESS THAN 24 CO 07/28/2017 Results Test Result Range Bacteria identification in isolate by an aerobe culture - 09/21/15 11:35 Bacteria identification in isolate by anaerobe culture NOANA NRG Gram stain microscopy - 09/21/15 11:35 GRAM STAIN RESULT FEW WBC'S, NO BACTERIA OBSERVED NRG Bacteria identification in wound by cult ure - 09/21/15 11:35 Bacteria identification in wound by culture [id number] NRG FREE TEXT EXTERNAL BETA LACTAMASE NEGATIVE NRG QUANTITY OF GROWTH Scant Growth NRG FREE TEXT ENTRY 2 SEE COMMENT NRG Bacteria identification in isolate by an aerobe culture - 10/26/15 11:00 Bacteria identification in isolate by anaerobe culture NOANA NRG Gram stain microscopy - 10/26/15 11:00 GRAM STAIN RESULT FEW WBC'S, NO BACTERIA OBSERVED NRG Bacteria identification in wound by cult ure - 10/26/15 11:00 Bacteria identification in wound by culture [id number] NRG FREE TEXT EXTERNAL NO FUTHER TESTING UNLESS REQUES ABBY NRG QUANTITY OF GROWTH Scant Growth NRG Capillary blood glucose measurement by g lucometer (mass/volume) - 11/10/15 14:53 Capillary blood glucose measurement by glucometer (mas s/volume) 215 mg/dL 70-110 Complete blood count (CBC) with automate d white blood cell (WBC) differential - 11/23/15 12:12 Blood leukocytes automated count (number/volume) 6.3 10*3/uL 4.3-11.0 Blood erythrocytes automated count (number/volume) 3.80 10*6/uL 4.35-5.85 Venous blood hemoglobin measurement (mass/volume) 10.5 g/dL 13.3-17.7 Blood hematocrit (volume fraction) 32 % 40-54 Automated erythrocyte mean corpuscular volume 85 [ foz_us] 80-99 Automated erythrocyte mean corpuscular h emoglobin (mass per erythrocyte) 28 pg 25-34 Automated erythrocyte mean corpuscular h emoglobin concentration measurement (mass/volume) 33 g/dL 32-36 Automated erythrocyte distribution width ratio 14. 9 % 10.0- 14.5 Automated blood platelet count (count/volume) 180 10*3/uL 130-400 Automated blood platelet mean volume measurement 10.1 [foz_us] 7.4-10.4 Automated blood neutrophils/100 leukocytes 58 % 42-75 Automated blood lymphocytes/100 leukocytes 27 % 12-44 Blood monocytes/100 leukocytes 9 % 0-12 Automated blood eosinophils/100 leukocytes 5 % 0-10 Automated blood basophils/100 leukocytes 0 % 0-10 Blood neutrophils automated count (number/volume) 3.7 10*3 1.8-7.8 Blood lymphocytes automated count (number/volume) 1.7 10*3 1.0-4.0 Blood monocytes automated count (number/volume) 0. 6 10*3 0.0-1.0 Automated eosinophil count 0.3 10*3/uL 0 .0-0.3 Automated blood basophil count (count/volume) 0.0 10*3/uL 0.0-0.1 Comprehensive metabolic panel - 11/23/15 12:12 Serum or plasma sodium measurement (moles/volume) 135 mmol/L 135-145 Serum or plasma potassium measurement (moles/volume) 4.9 mmol/L 3.6-5.0 Serum or plasma chloride measurement (moles/volume) 100 mmol/L 98-107 Carbon dioxide 25 mmol/L 21-32 Serum or plasma anion gap determination (moles/volume) 10 mmol/L 5-14 Serum or plasma urea nitrogen measurement (mass/volume ) 20 mg/dL 7-18 Serum or plasma creatinine measurement (mass/volume) 1.80 mg/dL 0.60-1.30 Serum or plasma urea nitrogen/creatinine mass ratio 11 NRG Serum or plasma creatinine measurement w ith calculation of estimated glomerular filtration rate 37 NRG Serum or plasma glucose measurement (mass/volume) 189 mg/dL 70-105 Serum or plasma calcium measurement (mass/volume) 8.7 mg/dL 8.5-10.1 Serum or plasma total bilirubin measurement (mass/volu me) 0.4 mg/dL 0.1-1.0 Serum or plasma alkaline phosphatase lemuel surement (enzymatic activity/volume) 103 U/L 40-136 Serum or plasma aspartate aminotransfera se measurement (enzymatic activity/volume) 24 U/L 5-34 Serum or plasma alanine aminotransferase measurement (enzymatic activity/volume) 21 U/L 0-55 Serum or plasma protein measurement (mass/volume) 6.0 g/dL 6.4-8.2 Serum or plasma albumin measurement (mass/volume) 3.1 g/dL 3.2-4.5 Hemoglobin A1c - 11/23/15 12:12 Hemoglobin A1c 8.0 % 4.5-6.2 Complete blood count (CBC) with automate d white blood cell (WBC) differential - 11/25/15 14:24 Blood leukocytes automated count (number/volume) 7.7 10*3/uL 4.3-11.0 Blood erythrocytes automated count (number/volume) 3.78 10*6/uL 4.35-5.85 Venous blood hemoglobin measurement (mass/volume) 10.3 g/dL 13.3-17.7 Blood hematocrit (volume fraction) 32 % 40-54 Automated erythrocyte mean corpuscular volume 85 [ foz_us] 80-99 Automated erythrocyte mean corpuscular h emoglobin (mass per erythrocyte) 27 pg 25-34 Automated erythrocyte mean corpuscular h emoglobin concentration measurement (mass/volume) 32 g/dL 32-36 Automated erythrocyte distribution width ratio 14. 9 % 10.0- 14.5 Automated blood platelet count (count/volume) 185 10*3/uL 130-400 Automated blood platelet mean volume measurement 10.6 [foz_us] 7.4-10.4 Automated blood neutrophils/100 leukocytes 64 % 42-75 Automated blood lymphocytes/100 leukocytes 22 % 12-44 Blood monocytes/100 leukocytes 9 % 0-12 Automated blood eosinophils/100 leukocytes 5 % 0-10 Automated blood basophils/100 leukocytes 0 % 0-10 Blood neutrophils automated count (number/volume) 4.9 10*3 1.8-7.8 Blood lymphocytes automated count (number/volume) 1.7 10*3 1.0-4.0 Blood monocytes automated count (number/volume) 0. 7 10*3 0.0-1.0 Automated eosinophil count 0.4 10*3/uL 0 .0-0.3 Automated blood basophil count (count/volume) 0.0 10*3/uL 0.0-0.1 Comprehensive metabolic panel - 11/25/15 14:24 Serum or plasma sodium measurement (moles/volume) 132 mmol/L 135-145 Serum or plasma potassium measurement (moles/volume) 5.2 mmol/L 3.6-5.0 Serum or plasma chloride measurement (moles/volume) 100 mmol/L 98-107 Carbon dioxide 27 mmol/L 21-32 Serum or plasma anion gap determination (moles/volume) 5 mmol/L 5-14 Serum or plasma urea nitrogen measurement (mass/volume ) 17 mg/dL 7-18 Serum or plasma creatinine measurement (mass/volume) 1.61 mg/dL 0.60-1.30 Serum or plasma urea nitrogen/creatinine mass ratio 11 NRG Serum or plasma creatinine measurement w ith calculation of estimated glomerular filtration rate 42 NRG Serum or plasma glucose measurement (mass/volume) 227 mg/dL 70-105 Serum or plasma calcium measurement (mass/volume) 8.7 mg/dL 8.5-10.1 Serum or plasma total bilirubin measurement (mass/volu me) 0.4 mg/dL 0.1-1.0 Serum or plasma alkaline phosphatase lemuel surement (enzymatic activity/volume) 103 U/L 40-136 Serum or plasma aspartate aminotransfera se measurement (enzymatic activity/volume) 25 U/L 5-34 Serum or plasma alanine aminotransferase measurement (enzymatic activity/volume) 16 U/L 0-55 Serum or plasma protein measurement (mass/volume) 6.0 g/dL 6.4-8.2 Serum or plasma albumin measurement (mass/volume) 2.9 g/dL 3.2-4.5 Magnesium - 11/25/15 14:24 Magnesium 1.8 mg/dL 1.8-2.4 Serum or plasma troponin i.cardiac measu rement (mass/volume) - 11/25/15 14:24 Serum or plasma troponin i.cardiac measurement (mass/v olume) < ng/mL <0.30 Complete urinalysis with reflex to cultu re - 11/25/15 15:15 Urine color determination YELLOW NRG Urine clarity determination SLIGHTLY CLOUDY NRG Urine pH measurement by test strip 8 5-9 Specific gravity of urine by test strip 1.015 1.016-1.022 Urine protein assay by test strip, semi-quantitative 2+ NEGATIVE Urine glucose detection by automated test strip NE GATIVE NEGATIVE Erythrocytes detection in urine sediment by light micr oscopy 3+ NEGATIVE Urine ketones detection by automated test strip NE GATIVE NEGATIVE Urine nitrite detection by test strip POSITIVE NEGATIVE Urine total bilirubin detection by test strip NEGA TIVE NEGATIVE Urine urobilinogen measurement by automated test strip (mass/volume) NORMAL NORMAL Urine leukocyte esterase detection by dipstick 3+ NEGATIVE Automated urine sediment erythrocyte cou nt by microscopy (number/high power field) [HPF] NRG Automated urine sediment leukocyte count by microscopy (number/high power field) TNTC NRG Bacteria detection in urine sediment by light microsco py MODERATE NRG Crystals detection in urine sediment by light microsco py NONE NRG Casts detection in urine sediment by light microscopy NONE NRG Mucus detection in urine sediment by light microscopy NEGATIVE NRG Complete urinalysis with reflex to culture YES NRG Bacterial urine culture - 11/25/15 15:15 Bacterial urine culture [id number] NRG COLONY COUNT >100,000/ML NRG FTX;REPORT[place] [address], 9-23 NRG Bacterial susceptibility panel - 6 15:15 Gentamicin susceptibility test by minimum inhibitory c oncentration 4 NRG Trimethoprim/sulfamethoxazole susceptibi lity test by minimum inhibitoryconcentration 40 NRG Ampicillin susceptibility test by minimum inhibitory c oncentration R NRG Tobramycin susceptibility test by minimum inhibitory c oncentration 2 NRG Cefazolin susceptibility test by minimum inhibitory co ncentration R NRG Ceftriaxone susceptibility test by minimum inhibitory concentration <= NRG Ampicillin/sulbactam susceptibility test by minimum inhibitory concentration <= NRG Piperacillin/tazobactam susceptibility t est by minimum inhibitory concentration <= NRG Ciprofloxacin susceptibility test by minimum inhibitor y concentration >= NRG Meropenem susceptibility test by minimum inhibitory co ncentration <= NRG Nitrofurantoin susceptibility test by mi nimum inhibitory concentration 128 NRG Aztreonam susceptibility test by minimum inhibitory co ncentration <= NRG Blood lactic acid measurement (moles/vol ume) - 11/25/15 16:10 Blood lactic acid measurement (moles/volume) 1.1 m mol/L 0.5- 2.0 Bacterial blood culture - 11/25/15 16:10 FREE TEXT EXTERNAL SEE COMMENT NRG QUANTITY OF GROWTH Isolated NRG Bacterial blood culture [id number] NRG Bacterial blood culture - 11/25/15 16:40 Bacterial blood culture NG NRG Capillary blood glucose measurement by g lucometer (mass/volume) - 11/25/15 20:46 Capillary blood glucose measurement by glucometer (mas s/volume) 219 mg/dL 70-110 Capillary blood glucose measurement by g lucometer (mass/volume) - 11/26/15 05:46 Capillary blood glucose measurement by glucometer (mas s/volume) 143 mg/dL 70-110 Complete blood count (CBC) with automate d white blood cell (WBC) differential - 11/26/15 06:09 Blood leukocytes automated count (number/volume) 6.6 10*3/uL 4.3-11.0 Blood erythrocytes automated count (number/volume) 3.54 10*6/uL 4.35-5.85 Venous blood hemoglobin measurement (mass/volume) 9.8 g/dL 13.3-17.7 Blood hematocrit (volume fraction) 30 % 40-54 Automated erythrocyte mean corpuscular volume 85 [ foz_us] 80-99 Automated erythrocyte mean corpuscular h emoglobin (mass per erythrocyte) 28 pg 25-34 Automated erythrocyte mean corpuscular h emoglobin concentration measurement (mass/volume) 33 g/dL 32-36 Automated erythrocyte distribution width ratio 15. 0 % 10.0- 14.5 Automated blood platelet count (count/volume) 177 10*3/uL 130-400 Automated blood platelet mean volume measurement 10.3 [foz_us] 7.4-10.4 Automated blood neutrophils/100 leukocytes 59 % 42-75 Automated blood lymphocytes/100 leukocytes 27 % 12-44 Blood monocytes/100 leukocytes 8 % 0-12 Automated blood eosinophils/100 leukocytes 5 % 0-10 Automated blood basophils/100 leukocytes 0 % 0-10 Blood neutrophils automated count (number/volume) 3.9 10*3 1.8-7.8 Blood lymphocytes automated count (number/volume) 1.8 10*3 1.0-4.0 Blood monocytes automated count (number/volume) 0. 5 10*3 0.0-1.0 Automated eosinophil count 0.3 10*3/uL 0 .0-0.3 Automated blood basophil count (count/volume) 0.0 10*3/uL 0.0-0.1 Whole blood basic metabolic panel - 11/05 04/21 06:09 Serum or plasma sodium measurement (moles/volume) 136 mmol/L 135-145 Serum or plasma potassium measurement (moles/volume) 4.8 mmol/L 3.6-5.0 Serum or plasma chloride measurement (moles/volume) 103 mmol/L 98-107 Carbon dioxide 24 mmol/L 21-32 Serum or plasma anion gap determination (moles/volume) 9 mmol/L 5-14 Serum or plasma urea nitrogen measurement (mass/volume ) 16 mg/dL 7-18 Serum or plasma creatinine measurement (mass/volume) 1.46 mg/dL 0.60-1.30 Serum or plasma urea nitrogen/creatinine mass ratio 11 NRG Serum or plasma creatinine measurement w ith calculation of estimated glomerular filtration rate 47 NRG Serum or plasma glucose measurement (mass/volume) 141 mg/dL 70-105 Serum or plasma calcium measurement (mass/volume) 8.8 mg/dL 8.5-10.1 Capillary blood glucose measurement by g lucometer (mass/volume) - 11/26/15 11:28 Capillary blood glucose measurement by glucometer (mas s/volume) 237 mg/dL 70-110 Capillary blood glucose measurement by g lucometer (mass/volume) - 11/26/15 15:58 Capillary blood glucose measurement by glucometer (mas s/volume) 223 mg/dL 70-110 Capillary blood glucose measurement by g lucometer (mass/volume) - 11/26/15 21:26 Capillary blood glucose measurement by glucometer (mas s/volume) 213 mg/dL 70-110 Capillary blood glucose measurement by g lucometer (mass/volume) - 11/27/15 05:15 Capillary blood glucose measurement by glucometer (mas s/volume) 113 mg/dL 70-110 Complete blood count (CBC) with automate d white blood cell (WBC) differential - 11/27/15 07:04 Blood leukocytes automated count (number/volume) 6.1 10*3/uL 4.3-11.0 Blood erythrocytes automated count (number/volume) 3.43 10*6/uL 4.35-5.85 Venous blood hemoglobin measurement (mass/volume) 9.4 g/dL 13.3-17.7 Blood hematocrit (volume fraction) 29 % 40-54 Automated erythrocyte mean corpuscular volume 85 [ foz_us] 80-99 Automated erythrocyte mean corpuscular h emoglobin (mass per erythrocyte) 27 pg 25-34 Automated erythrocyte mean corpuscular h emoglobin concentration measurement (mass/volume) 32 g/dL 32-36 Automated erythrocyte distribution width ratio 14. 9 % 10.0- 14.5 Automated blood platelet count (count/volume) 179 10*3/uL 130-400 Automated blood platelet mean volume measurement 9.5 [foz_us] 7.4-10.4 Automated blood neutrophils/100 leukocytes 56 % 42-75 Automated blood lymphocytes/100 leukocytes 28 % 12-44 Blood monocytes/100 leukocytes 9 % 0-12 Automated blood eosinophils/100 leukocytes 7 % 0-10 Automated blood basophils/100 leukocytes 0 % 0-10 Blood neutrophils automated count (number/volume) 3.4 10*3 1.8-7.8 Blood lymphocytes automated count (number/volume) 1.7 10*3 1.0-4.0 Blood monocytes automated count (number/volume) 0. 6 10*3 0.0-1.0 Automated eosinophil count 0.4 10*3/uL 0 .0-0.3 Automated blood basophil count (count/volume) 0.0 10*3/uL 0.0-0.1 Whole blood basic metabolic panel - 11/05 05/19 07:04 Serum or plasma sodium measurement (moles/volume) 137 mmol/L 135-145 Serum or plasma potassium measurement (moles/volume) 4.0 mmol/L 3.6-5.0 Serum or plasma chloride measurement (moles/volume) 107 mmol/L 98-107 Carbon dioxide 22 mmol/L 21-32 Serum or plasma anion gap determination (moles/volume) 8 mmol/L 5-14 Serum or plasma urea nitrogen measurement (mass/volume ) 11 mg/dL 7-18 Serum or plasma creatinine measurement (mass/volume) 1.00 mg/dL 0.60-1.30 Serum or plasma urea nitrogen/creatinine mass ratio 11 NRG Serum or plasma creatinine measurement w ith calculation of estimated glomerular filtration rate > NRG Serum or plasma glucose measurement (mass/volume) 99 mg/dL 70-105 Serum or plasma calcium measurement (mass/volume) 8.0 mg/dL 8.5-10.1 Complete urinalysis with reflex to cultu re - 11/27/15 09:30 Urine color determination YELLOW NRG Urine clarity determination CLEAR NR G Urine pH measurement by test strip 7 5-9 Specific gravity of urine by test strip 1.010 1.016-1.022 Urine protein assay by test strip, semi-quantitative 2+ NEGATIVE Urine glucose detection by automated test strip NE GATIVE NEGATIVE Erythrocytes detection in urine sediment by light micr oscopy 2+ NEGATIVE Urine ketones detection by automated test strip NE GATIVE NEGATIVE Urine nitrite detection by test strip NEGATIVE NEGATIVE Urine total bilirubin detection by test strip NEGA TIVE NEGATIVE Urine urobilinogen measurement by automated test strip (mass/volume) NORMAL NORMAL Urine leukocyte esterase detection by dipstick 3+ NEGATIVE Automated urine sediment erythrocyte cou nt by microscopy (number/high power field) [HPF] NRG Automated urine sediment leukocyte count by microscopy (number/high power field) [HPF] NRG Bacteria detection in urine sediment by light microsco py TRACE NRG Squamous epithelial cells detection in u rine sediment by light microscopy 2-5 NRG Crystals detection in urine sediment by light microsco py NONE NRG Casts detection in urine sediment by light microscopy NONE NRG Mucus detection in urine sediment by light microscopy NEGATIVE NRG Complete urinalysis with reflex to culture YES NRG Bacterial urine culture - 11/27/15 09:30 URINE CULTURE RESULTS <10,000/ML NRG Capillary blood glucose measurement by g lucometer (mass/volume) - 11/27/15 10:33 Capillary blood glucose measurement by glucometer (mas s/volume) 224 mg/dL 70-110 Bacterial blood culture - 12/21/15 00:30 Bacterial blood culture NG NRG Complete blood count (CBC) with automate d white blood cell (WBC) differential - 12/21/15 23:05 Blood leukocytes automated count (number/volume) 6.4 10*3/uL 4.3-11.0 Blood erythrocytes automated count (number/volume) 3.48 10*6/uL 4.35-5.85 Venous blood hemoglobin measurement (mass/volume) 9.7 g/dL 13.3-17.7 Blood hematocrit (volume fraction) 29 % 40-54 Automated erythrocyte mean corpuscular volume 85 [ foz_us] 80-99 Automated erythrocyte mean corpuscular h emoglobin (mass per erythrocyte) 28 pg 25-34 Automated erythrocyte mean corpuscular h emoglobin concentration measurement (mass/volume) 33 g/dL 32-36 Automated erythrocyte distribution width ratio 15. 1 % 10.0- 14.5 Automated blood platelet count (count/volume) 191 10*3/uL 130-400 Automated blood platelet mean volume measurement 9.5 [foz_us] 7.4-10.4 Automated blood neutrophils/100 leukocytes 59 % 42-75 Automated blood lymphocytes/100 leukocytes 25 % 12-44 Blood monocytes/100 leukocytes 10 % 0-12 Automated blood eosinophils/100 leukocytes 5 % 0-10 Automated blood basophils/100 leukocytes 0 % 0-10 Blood neutrophils automated count (number/volume) 3.8 10*3 1.8-7.8 Blood lymphocytes automated count (number/volume) 1.6 10*3 1.0-4.0 Blood monocytes automated count (number/volume) 0. 7 10*3 0.0-1.0 Automated eosinophil count 0.4 10*3/uL 0 .0-0.3 Automated blood basophil count (count/volume) 0.0 10*3/uL 0.0-0.1 Comprehensive metabolic panel - 12/21/15 23:05 Serum or plasma sodium measurement (moles/volume) 135 mmol/L 135-145 Serum or plasma potassium measurement (moles/volume) 4.2 mmol/L 3.6-5.0 Serum or plasma chloride measurement (moles/volume) 101 mmol/L 98-107 Carbon dioxide 25 mmol/L 21-32 Serum or plasma anion gap determination (moles/volume) 9 mmol/L 5-14 Serum or plasma urea nitrogen measurement (mass/volume ) 16 mg/dL 7-18 Serum or plasma creatinine measurement (mass/volume) 1.61 mg/dL 0.60-1.30 Serum or plasma urea nitrogen/creatinine mass ratio 10 NRG Serum or plasma creatinine measurement w ith calculation of estimated glomerular filtration rate 42 NRG Serum or plasma glucose measurement (mass/volume) 240 mg/dL 70-105 Serum or plasma calcium measurement (mass/volume) 8.7 mg/dL 8.5-10.1 Serum or plasma total bilirubin measurement (mass/volu me) 0.5 mg/dL 0.1-1.0 Serum or plasma alkaline phosphatase lemuel surement (enzymatic activity/volume) 83 U/L 40-136 Serum or plasma aspartate aminotransfera se measurement (enzymatic activity/volume) 18 U/L 5-34 Serum or plasma alanine aminotransferase measurement (enzymatic activity/volume) 13 U/L 0-55 Serum or plasma protein measurement (mass/volume) 6.1 g/dL 6.4-8.2 Serum or plasma albumin measurement (mass/volume) 3.2 g/dL 3.2-4.5 Magnesium - 12/21/15 23:05 Magnesium 1.5 mg/dL 1.8-2.4 Serum or plasma lithium measurement (mol es/volume) - 12/21/15 23:05 BNP level 97.2 pg/mL <100.0 Blood lactic acid measurement (moles/vol ume) - 12/21/15 23:35 Blood lactic acid measurement (moles/volume) 1.1 m mol/L 0.5- 2.0 Bacterial blood culture - 12/21/15 23:35 Bacterial blood culture NG NR Bacteria identification in isolate by an aerobe culture - 03/17/16 09:31 Bacteria identification in isolate by anaerobe culture NOANA NR Gram stain microscopy - 03/17/16 09:31 Bacteria identification in wound by cult ure - 03/17/16 09:31 Bacteria identification in wound by culture [id number] NR FREE TEXT EXTERNAL SENSITIVITY REPORTED 03/23/16 9: 00 NRG QUANTITY OF GROWTH Scant Growth NR Bacterial susceptibility panel - 7 09:31 Gentamicin susceptibility test by minimum inhibitory c oncentration R NRG Erythromycin susceptibility test by minimum inhibitory concentration >= NRG Vancomycin susceptibility test by minimum inhibitory c oncentration 1 NRG Ampicillin susceptibility test by minimum inhibitory c oncentration <= NRG Linezolid susceptibility test by minimum inhibitory co ncentration 2 NRG Bacteria identification in isolate by an aerobe culture - 05/12/16 08:35 Bacteria identification in isolate by anaerobe culture NG NRG Gram stain microscopy - 05/12/16 08:35 GRAM STAIN RESULT NO BACTERIA OBSERVED [facility] Bacteria identification in wound by cult ure - 05/12/16 08:35 Bacteria identification in wound by culture [facility] Fungus culture - 05/12/16 08:35 Fungus culture [facility] Automated blood complete blood count (he mogram) panel - 07/13/16 08:53 Blood leukocytes automated count (number/volume) 5.5 10*3/uL 4.3-11.0 Blood erythrocytes automated count (number/volume) 4.15 10*6/uL 4.35-5.85 Venous blood hemoglobin measurement (mass/volume) 11.6 g/dL 13.3-17.7 Blood hematocrit (volume fraction) 36 % 40-54 Automated erythrocyte mean corpuscular volume 87 [ foz_us] 80-99 Automated erythrocyte mean corpuscular h emoglobin (mass per erythrocyte) 28 pg 25-34 Automated erythrocyte mean corpuscular h emoglobin concentration measurement (mass/volume) 32 g/dL 32-36 Automated erythrocyte distribution width ratio 14. 2 % 10.0- 14.5 Automated blood platelet count (count/volume) 196 10*3/uL 130-400 Automated blood platelet mean volume measurement 10.4 [foz_us] 7.4-10.4 PT panel in platelet poor plasma by coag ulation assay - 07/13/16 08:53 Prothrombin time (PT) in platelet poor plasma by coagu lation assay 14.6 s 12.2-14.7 INR in platelet poor plasma or blood by coagulation as say 1.2 0.8-1.4 Activated partial thromboplastin time (a PTT) in platelet poor plasma bycoagulation assay - 07/13/16 08:53 Activated partial thromboplastin time (a PTT) in platelet poor plasma bycoagulation assay 39 s 24-35 Methicillin resistant Staphylococcus aur eus (MRSA) screening culture - 07/13/16 08:55 Methicillin resistant Staphylococcus aureus (MRSA) scr eening culture NEG NR Complete blood count (CBC) with automate d white blood cell (WBC) differential - 09/12/16 21:00 Blood leukocytes automated count (number/volume) 6.9 10*3/uL 4.3-11.0 Blood erythrocytes automated count (number/volume) 3.81 10*6/uL 4.35-5.85 Venous blood hemoglobin measurement (mass/volume) 10.1 g/dL 13.3-17.7 Blood hematocrit (volume fraction) 33 % 40-54 Automated erythrocyte mean corpuscular volume 85 [ foz_us] 80-99 Automated erythrocyte mean corpuscular h emoglobin (mass per erythrocyte) 27 pg 25-34 Automated erythrocyte mean corpuscular h emoglobin concentration measurement (mass/volume) 31 g/dL 32-36 Automated erythrocyte distribution width ratio 14. 6 % 10.0- 14.5 Automated blood platelet count (count/volume) 206 10*3/uL 130-400 Automated blood platelet mean volume measurement 10.5 [foz_us] 7.4-10.4 Automated blood neutrophils/100 leukocytes 62 % 42-75 Automated blood lymphocytes/100 leukocytes 25 % 12-44 Blood monocytes/100 leukocytes 7 % 0-12 Automated blood eosinophils/100 leukocytes 5 % 0-10 Automated blood basophils/100 leukocytes 0 % 0-10 Blood neutrophils automated count (number/volume) 4.3 10*3 1.8-7.8 Blood lymphocytes automated count (number/volume) 1.7 10*3 1.0-4.0 Blood monocytes automated count (number/volume) 0. 5 10*3 0.0-1.0 Automated eosinophil count 0.3 10*3/uL 0 .0-0.3 Automated blood basophil count (count/volume) 0.0 10*3/uL 0.0-0.1 Comprehensive metabolic panel - 09/12/16 21:00 Serum or plasma sodium measurement (moles/volume) 136 mmol/L 135-145 Serum or plasma potassium measurement (moles/volume) 3.9 mmol/L 3.6-5.0 Serum or plasma chloride measurement (moles/volume) 99 mmol/L 98-107 Carbon dioxide 28 mmol/L 21-32 Serum or plasma anion gap determination (moles/volume) 9 mmol/L 5-14 Serum or plasma urea nitrogen measurement (mass/volume ) 13 mg/dL 7-18 Serum or plasma creatinine measurement (mass/volume) 1.18 mg/dL 0.60-1.30 Serum or plasma urea nitrogen/creatinine mass ratio 11 NRG Serum or plasma creatinine measurement w ith calculation of estimated glomerular filtration rate > NRG Serum or plasma glucose measurement (mass/volume) 172 mg/dL 70-105 Serum or plasma calcium measurement (mass/volume) 9.0 mg/dL 8.5-10.1 Serum or plasma total bilirubin measurement (mass/volu me) 0.5 mg/dL 0.1-1.0 Serum or plasma alkaline phosphatase lemuel surement (enzymatic activity/volume) 67 U/L 40-136 Serum or plasma aspartate aminotransfera se measurement (enzymatic activity/volume) 18 U/L 5-34 Serum or plasma alanine aminotransferase measurement (enzymatic activity/volume) 13 U/L 0-55 Serum or plasma protein measurement (mass/volume) 6.2 g/dL 6.4-8.2 Serum or plasma albumin measurement (mass/volume) 3.0 g/dL 3.2-4.5 Magnesium - 09/12/16 21:00 Magnesium 1.5 mg/dL 1.8-2.4 Serum or plasma troponin i.cardiac measu rement (mass/volume) - 09/12/16 21:00 Serum or plasma troponin i.cardiac measurement (mass/v olume) < ng/mL <0.30 Serum or plasma C reactive protein measu rement (mass/volume) - 09/12/16 21:00 Serum or plasma C reactive protein measurement (mass/v olume) 0.59 mg/dL 0.00-0.50 Serum or plasma lithium measurement (mol es/volume) - 09/12/16 21:00 BNP level 71.3 pg/mL <100.0 Bacterial urine culture - 01/12/17 14:02 Bacterial urine culture [id number] NR COLONY COUNT >100,000/ML NR FTX;REPORTABLE SENSITIVITY REPORTED 01/14/17 13:10 NR FREE TEXT ENTRY 2 PLUS, NRG FREE TEXT ENTRY 3 MIXED GRAM POSITIVES <10,000/ML NR Bacterial susceptibility panel - 7 14:02 Gentamicin susceptibility test by minimum inhibitory c oncentration <= NRG Trimethoprim/sulfamethoxazole susceptibi lity test by minimum inhibitoryconcentration <= NRG Ampicillin susceptibility test by minimum inhibitory c oncentration <= NRG Tobramycin susceptibility test by minimum inhibitory c oncentration <= NRG Cefazolin susceptibility test by minimum inhibitory co ncentration <= NRG Ceftriaxone susceptibility test by minimum inhibitory concentration <= NRG Ampicillin/sulbactam susceptibility test by minimum inhibitory concentration <= NRG Piperacillin/tazobactam susceptibility t est by minimum inhibitory concentration <= NRG Ciprofloxacin susceptibility test by minimum inhibitor y concentration <= NRG Meropenem susceptibility test by minimum inhibitory co ncentration <= NRG Nitrofurantoin susceptibility test by mi nimum inhibitory concentration 128 NRG Aztreonam susceptibility test by minimum inhibitory co ncentration <= NRG Complete blood count (CBC) with automate d white blood cell (WBC) differential - 07/28/17 13:29 Blood leukocytes automated count (number/volume) 12.9 10*3/uL 4.3-11.0 Blood erythrocytes automated count (number/volume) 4.13 10*6/uL 4.35-5.85 Venous blood hemoglobin measurement (mass/volume) 11.3 g/dL 13.3-17.7 Blood hematocrit (volume fraction) 36 % 40-54 Automated erythrocyte mean corpuscular volume 86 [ foz_us] 80-99 Automated erythrocyte mean corpuscular h emoglobin (mass per erythrocyte) 27 pg 25-34 Automated erythrocyte mean corpuscular h emoglobin concentration measurement (mass/volume) 32 g/dL 32-36 Automated erythrocyte distribution width ratio 15. 5 % 10.0- 14.5 Automated blood platelet count (count/volume) 238 10*3/uL 130-400 Automated blood platelet mean volume measurement 9.9 [foz_us] 7.4-10.4 Automated blood neutrophils/100 leukocytes 88 % 42-75 Automated blood lymphocytes/100 leukocytes 6 % 12-44 Blood monocytes/100 leukocytes 5 % 0-12 Automated blood eosinophils/100 leukocytes 1 % 0-10 Automated blood basophils/100 leukocytes 0 % 0-10 Blood neutrophils automated count (number/volume) 11.4 10*3 1.8-7.8 Blood lymphocytes automated count (number/volume) 0.7 10*3 1.0-4.0 Blood monocytes automated count (number/volume) 0. 7 10*3 0.0-1.0 Automated eosinophil count 0.1 10*3/uL 0 .0-0.3 Automated blood basophil count (count/volume) 0.0 10*3/uL 0.0-0.1 PT panel in platelet poor plasma by coag ulation assay - 07/28/17 13:29 Prothrombin time (PT) in platelet poor plasma by coagu lation assay 16.1 s 12.2-14.7 INR in platelet poor plasma or blood by coagulation as say 1.3 0.8-1.4 Comprehensive metabolic panel - 07/28/17 13:29 Serum or plasma sodium measurement (moles/volume) 139 mmol/L 135-145 Serum or plasma potassium measurement (moles/volume) 4.7 mmol/L 3.6-5.0 Serum or plasma chloride measurement (moles/volume) 100 mmol/L 98-107 Carbon dioxide 30 mmol/L 21-32 Serum or plasma anion gap determination (moles/volume) 9 mmol/L 5-14 Serum or plasma urea nitrogen measurement (mass/volume ) 21 mg/dL 7-18 Serum or plasma creatinine measurement (mass/volume) 1.49 mg/dL 0.60-1.30 Serum or plasma urea nitrogen/creatinine mass ratio 14 NRG Serum or plasma creatinine measurement w ith calculation of estimated glomerular filtration rate 46 NRG Serum or plasma glucose measurement (mass/volume) 149 mg/dL 70-105 Serum or plasma calcium measurement (mass/volume) 9.2 mg/dL 8.5-10.1 Serum or plasma total bilirubin measurement (mass/volu me) 0.7 mg/dL 0.1-1.0 Serum or plasma alkaline phosphatase lemuel surement (enzymatic activity/volume) 85 U/L 40-136 Serum or plasma aspartate aminotransfera se measurement (enzymatic activity/volume) 30 U/L 5-34 Serum or plasma alanine aminotransferase measurement (enzymatic activity/volume) 17 U/L 0-55 Serum or plasma protein measurement (mass/volume) 7.2 g/dL 6.4-8.2 Serum or plasma albumin measurement (mass/volume) 3.4 g/dL 3.2-4.5 Blood manual differential performed dete ction - 07/28/17 13:29 Blood monocytes/100 leukocytes 1 % NRG Manual blood segmented neutrophils/100 leukocytes 92 % NRG Blood band neutrophils/100 leukocytes 2 % NRG Manual blood lymphocytes/100 leukocytes 3 % NRG Manual eosinophils/100 leukocytes in nose 2 % NRG Manual blood basophils/100 leukocytes 0 % NRG Blood erythrocyte morphology finding identification NORMAL NRG Blood lactic acid measurement (moles/vol ume) - 07/28/17 13:29 Blood lactic acid measurement (moles/volume) 2.21 mmol/L 0.50-2.00 Bacterial blood culture - 07/28/17 13:29 FREE TEXT EXTERNAL FOUND IN ALL BOTTLES FROM BOTH CULTURES NRG QUANTITY OF GROWTH Isolated NRG Bacterial blood culture [id number] NRG Bacterial blood culture - 07/28/17 14:16 FREE TEXT EXTERNAL REPORT CALLED TO [facility] NRG QUANTITY OF GROWTH Isolated NRG Bacterial blood culture [id number] NRG Complete urinalysis with reflex to cultu re - 07/28/17 14:53 Urine color determination YELLOW NRG Urine clarity determination CLEAR NR G Urine pH measurement by test strip 5 5-9 Specific gravity of urine by test strip 1.015 1.016-1.022 Urine protein assay by test strip, semi-quantitative 2+ NEGATIVE Urine glucose detection by automated test strip NE GATIVE NEGATIVE Erythrocytes detection in urine sediment by light micr oscopy 4+ NEGATIVE Urine ketones detection by automated test strip NE GATIVE NEGATIVE Urine nitrite detection by test strip NEGATIVE NEGATIVE Urine total bilirubin detection by test strip NEGA TIVE NEGATIVE Urine urobilinogen measurement by automated test strip (mass/volume) NORMAL NORMAL Urine leukocyte esterase detection by dipstick 2+ NEGATIVE Automated urine sediment erythrocyte cou nt by microscopy (number/high power field) [HPF] NRG Automated urine sediment leukocyte count by microscopy (number/high power field) [HPF] NRG Bacteria detection in urine sediment by light microsco py FEW NRG Squamous epithelial cells detection in u rine sediment by light microscopy 5-10 NRG Crystals detection in urine sediment by light microsco py PRESENT NRG Casts detection in urine sediment by light microscopy NONE NRG Mucus detection in urine sediment by light microscopy NEGATIVE NRG Complete urinalysis with reflex to culture YES NRG Amorphous sediment detection in urine sediment by ligh t microscopy FEW TAJ URATES NRG Bacterial urine culture - 07/28/17 14:53 Bacterial urine culture [id number] NRG COLONY COUNT >100,000/ML NRG FTX;REPORTABLE FINAL AND SUSCEPTIBILITY REPORTED A T NRG FREE TEXT ENTRY 2 5965, 07-30-17. NRG RML Sensitivity Panel - 07/28/17 14:53 Vancomycin susceptibility test by minimum inhibitory c oncentration 1 NRG Levofloxacin susceptibility test by minimum inhibitory concentration <= NRG Ampicillin susceptibility test by minimum inhibitory c oncentration 2 NRG Nitrofurantoin susceptibility test by mi nimum inhibitory concentration <= NRG Linezolid susceptibility test by minimum inhibitory co ncentration 2 NRG Daptomycin susc ANNA 4 NRG Serum or plasma lactate measurement (mol es/volume) - 07/28/17 15:38 Serum or plasma lactate measurement (moles/volume) 1.61 mmol/L 0.50-2.00 Gram stain microscopy - 07/28/17 16:01 GRAM STAIN RESULT RARE GRAM POSITIVE COCCI NRG Bacteria identification in wound by cult ure - 07/28/17 16:01 Bacteria identification in wound by culture [id number] NR FREE TEXT EXTERNAL SENSITIVITY REPORTED AT 0851, NRG QUANTITY OF GROWTH Moderate Growth NR Bacterial susceptibility panel - 8 16:01 Gentamicin susceptibility test by minimum inhibitory c oncentration <= NRG Trimethoprim/sulfamethoxazole susceptibi lity test by minimum inhibitoryconcentration S NRG Ampicillin susceptibility test by minimum inhibitory c oncentration <= NRG Tobramycin susceptibility test by minimum inhibitory c oncentration <= NRG Cefazolin susceptibility test by minimum inhibitory co ncentration <= NRG Ceftriaxone susceptibility test by minimum inhibitory concentration <= NRG Ampicillin/sulbactam susceptibility test by minimum inhibitory concentration <= NRG Piperacillin/tazobactam susceptibility t est by minimum inhibitory concentration S NRG Ciprofloxacin susceptibility test by minimum inhibitor y concentration <= NRG Meropenem susceptibility test by minimum inhibitory co ncentration <= NRG Aztreonam susceptibility test by minimum inhibitory co ncentration <= NRG Bacterial susceptibility panel - 8 16:01 Gentamicin susceptibility test by minimum inhibitory c oncentration <= NRG Trimethoprim/sulfamethoxazole susceptibi lity test by minimum inhibitoryconcentration S NRG Ampicillin susceptibility test by minimum inhibitory c oncentration 4 NRG Tobramycin susceptibility test by minimum inhibitory c oncentration <= NRG Cefazolin susceptibility test by minimum inhibitory co ncentration <= NRG Ceftriaxone susceptibility test by minimum inhibitory concentration <= NRG Ampicillin/sulbactam susceptibility test by minimum inhibitory concentration <= NRG Piperacillin/tazobactam susceptibility t est by minimum inhibitory concentration S NRG Ciprofloxacin susceptibility test by minimum inhibitor y concentration <= NRG Meropenem susceptibility test by minimum inhibitory co ncentration <= NRG Aztreonam susceptibility test by minimum inhibitory co ncentration <= NRG Extended spectrum beta lactamase (ESBL) producing bacteria susceptibility test by minimum inhibitory concentration - [facility] Bacterial susceptibility panel - 8 16:01 Gentamicin susceptibility test by minimum inhibitory c oncentration R NRG Erythromycin susceptibility test by minimum inhibitory concentration >= NRG Vancomycin susceptibility test by minimum inhibitory c oncentration 1 NRG Ampicillin susceptibility test by minimum inhibitory c oncentration <= NRG Linezolid susceptibility test by minimum inhibitory co ncentration 2 NR Bacterial susceptibility panel - 8 16:01 Gentamicin susceptibility test by minimum inhibitory c oncentration S NRG Erythromycin susceptibility test by minimum inhibitory concentration >= NRG Vancomycin susceptibility test by minimum inhibitory c oncentration <= NRG Ampicillin susceptibility test by minimum inhibitory c oncentration <= NRG Linezolid susceptibility test by minimum inhibitory co ncentration 2 [facility] Bacterial susceptibility panel - 8 16:01 Trimethoprim/sulfamethoxazole susceptibi lity test by minimum inhibitoryconcentration <= NRG Complete blood count (CBC) with automate d white blood cell (WBC) differential - 07/28/17 17:38 Blood leukocytes automated count (number/volume) 5.5 10*3/uL 4.3-11.0 Blood erythrocytes automated count (number/volume) 4.07 10*6/uL 4.35-5.85 Venous blood hemoglobin measurement (mass/volume) 11.1 g/dL 13.3-17.7 Blood hematocrit (volume fraction) 35 % 40-54 Automated erythrocyte mean corpuscular volume 87 [ foz_us] 80-99 Automated erythrocyte mean corpuscular h emoglobin (mass per erythrocyte) 27 pg 25-34 Automated erythrocyte mean corpuscular h emoglobin concentration measurement (mass/volume) 31 g/dL 32-36 Automated erythrocyte distribution width ratio 15. 4 % 10.0- 14.5 Automated blood platelet count (count/volume) 172 10*3/uL 130-400 Automated blood platelet mean volume measurement 10.9 [foz_us] 7.4-10.4 Automated blood neutrophils/100 leukocytes 88 % 42-75 Automated blood lymphocytes/100 leukocytes 10 % 12-44 Blood monocytes/100 leukocytes 2 % 0-12 Automated blood eosinophils/100 leukocytes 0 % 0-10 Automated blood basophils/100 leukocytes 0 % 0-10 Blood neutrophils automated count (number/volume) 4.9 10*3 1.8-7.8 Blood lymphocytes automated count (number/volume) 0.5 10*3 1.0-4.0 Blood monocytes automated count (number/volume) 0. 1 10*3 0.0-1.0 Automated eosinophil count 0.0 10*3/uL 0 .0-0.3 Automated blood basophil count (count/volume) 0.0 10*3/uL 0.0-0.1 Comprehensive metabolic panel - 07/28/17 17:38 Serum or plasma sodium measurement (moles/volume) 138 mmol/L 135-145 Serum or plasma potassium measurement (moles/volume) 3.9 mmol/L 3.6-5.0 Serum or plasma chloride measurement (moles/volume) 101 mmol/L 98-107 Carbon dioxide 27 mmol/L 21-32 Serum or plasma anion gap determination (moles/volume) 10 mmol/L 5-14 Serum or plasma urea nitrogen measurement (mass/volume ) 23 mg/dL 7-18 Serum or plasma creatinine measurement (mass/volume) 1.56 mg/dL 0.60-1.30 Serum or plasma urea nitrogen/creatinine mass ratio 15 NRG Serum or plasma creatinine measurement w ith calculation of estimated glomerular filtration rate 44 NRG Serum or plasma glucose measurement (mass/volume) 101 mg/dL 70-105 Serum or plasma calcium measurement (mass/volume) 8.4 mg/dL 8.5-10.1 Serum or plasma total bilirubin measurement (mass/volu me) 0.9 mg/dL 0.1-1.0 Serum or plasma alkaline phosphatase lemuel surement (enzymatic activity/volume) 79 U/L 40-136 Serum or plasma aspartate aminotransfera se measurement (enzymatic activity/volume) 48 U/L 5-34 Serum or plasma alanine aminotransferase measurement (enzymatic activity/volume) 20 U/L 0-55 Serum or plasma protein measurement (mass/volume) 5.9 g/dL 6.4-8.2 Serum or plasma albumin measurement (mass/volume) 3.1 g/dL 3.2-4.5 Serum or plasma troponin i.cardiac measu rement (mass/volume) - 07/28/17 17:38 Serum or plasma troponin i.cardiac measurement (mass/v olume) < ng/mL <0.30 Arterial blood gas measurement - 8 18:12 Blood pCO2 59 mm[Hg] 35-45 Blood pO2 105 mm[Hg] 79-93 Arterial blood bicarbonate measurement (moles/volume) 28 mmol/L 23-27 Arterial blood base excess by calculation 2.0 mmol /L -2.5-2.5 Arterial blood oxygen saturation measurement 98 % 94-100 * Inhaled oxygen flow rate 100% NRG Arterial blood pH measurement with patient temperature correction 7.30 7.37-7.43 Arterial blood carbon dioxide, total measurement (mole s/volume) 29.5 mmol/L 21.0-31.0 Body site RT RAD NRG Assessment of wrist artery patency prior to arterial p uncture NA NRG Setting of ventilation mode YES NR G Measurement of body temperature 99.6 NRG Complete blood count (CBC) with automate d white blood cell (WBC) differential - 12/26/18 02:53 Blood leukocytes automated count (number/volume) 7.1 10*3/uL 4.3-11.0 Blood erythrocytes automated count (number/volume) 4.26 10*6/uL 4.35-5.85 Venous blood hemoglobin measurement (mass/volume) 11.6 g/dL 13.3-17.7 Blood hematocrit (volume fraction) 35 % 40-54 Automated erythrocyte mean corpuscular volume 82 [ foz_us] 80-99 Automated erythrocyte mean corpuscular h emoglobin (mass per erythrocyte) 27 pg 25-34 Automated erythrocyte mean corpuscular h emoglobin concentration measurement (mass/volume) 33 g/dL 32-36 Automated erythrocyte distribution width ratio 16. 7 % 10.0- 14.5 Automated blood platelet count (count/volume) 210 10*3/uL 130-400 Automated blood platelet mean volume measurement 11.0 [foz_us] 7.4-10.4 Automated blood neutrophils/100 leukocytes 69 % 42-75 Automated blood lymphocytes/100 leukocytes 16 % 12-44 Blood monocytes/100 leukocytes 11 % 0-12 Automated blood eosinophils/100 leukocytes 4 % 0-10 Automated blood basophils/100 leukocytes 0 % 0-10 Blood neutrophils automated count (number/volume) 4.9 10*3 1.8-7.8 Blood lymphocytes automated count (number/volume) 1.1 10*3 1.0-4.0 Blood monocytes automated count (number/volume) 0. 8 10*3 0.0-1.0 Automated eosinophil count 0.3 10*3/uL 0 .0-0.3 Automated blood basophil count (count/volume) 0.0 10*3/uL 0.0-0.1 PT panel in platelet poor plasma by coag ulation assay - 12/26/18 02:53 Prothrombin time (PT) in platelet poor plasma by coagu lation assay 14.1 s 12.2-14.7 INR in platelet poor plasma or blood by coagulation as say 1.1 0.8-1.4 Activated partial thromboplastin time (a PTT) in platelet poor plasma bycoagulation assay - 12/26/18 02:53 Activated partial thromboplastin time (a PTT) in platelet poor plasma bycoagulation assay 41 s 24-35 Comprehensive metabolic panel - 12/26/18 02:53 Serum or plasma sodium measurement (moles/volume) 132 mmol/L 135-145 Serum or plasma potassium measurement (moles/volume) 3.8 mmol/L 3.6-5.0 Serum or plasma chloride measurement (moles/volume) 94 mmol/L 98-107 Carbon dioxide 25 mmol/L 21-32 Serum or plasma anion gap determination (moles/volume) 13 mmol/L 5-14 Serum or plasma urea nitrogen measurement (mass/volume ) 36 mg/dL 7-18 Serum or plasma creatinine measurement (mass/volume) 1.56 mg/dL 0.60-1.30 Serum or plasma urea nitrogen/creatinine mass ratio 23 NRG Serum or plasma creatinine measurement w ith calculation of estimated glomerular filtration rate 44 NRG Serum or plasma glucose measurement (mass/volume) 212 mg/dL 70-105 Serum or plasma calcium measurement (mass/volume) 9.0 mg/dL 8.5-10.1 Serum or plasma total bilirubin measurement (mass/volu me) 0.4 mg/dL 0.1-1.0 Serum or plasma alkaline phosphatase lemuel surement (enzymatic activity/volume) 102 U/L 40-136 Serum or plasma aspartate aminotransfera se measurement (enzymatic activity/volume) 35 U/L 5-34 Serum or plasma alanine aminotransferase measurement (enzymatic activity/volume) 22 U/L 0-55 Serum or plasma protein measurement (mass/volume) 7.1 g/dL 6.4-8.2 Serum or plasma albumin measurement (mass/volume) 3.6 g/dL 3.2-4.5 CALCIUM CORRECTED 9.3 mg/dL 8.5-10.1 Magnesium - 12/26/18 02:53 Magnesium 1.7 mg/dL 1.6-2.4 Serum or plasma creatine kinase measurem ent (enzymatic activity/volume) - 12/26/18 02:53 Serum or plasma creatine kinase measurem ent (enzymatic activity/volume) 91 U/L 30-200 Serum or plasma creatine kinase MB measu rement (enzymatic activity/volume) - 12/26/18 02:53 Serum or plasma creatine kinase MB measu rement (enzymatic activity/volume) 2.6 ng/mL <6.6 Serum or plasma troponin i.cardiac measu rement (mass/volume) - 12/26/18 02:53 Serum or plasma troponin i.cardiac measurement (mass/v olume) < ng/mL <0.028 Myoglobin, serum - 12/26/18 02:53 Myoglobin, serum 128.1 ng/mL 10.0-92.0 Serum or plasma amylase measurement (enz ymatic activity/volume) - 12/26/18 02:53 Serum or plasma amylase measurement (enzymatic activit y/volume) 55 U/L 25-125 Lipase - 12/26/18 02:53 Lipase 24 U/L 8-78 Serum or plasma lithium measurement (mol es/volume) - 12/26/18 02:53 BNP PT 109.6 pg/mL <100.0 Capillary blood glucose measurement by g lucometer (mass/volume) - 12/26/18 08:15 Capillary blood glucose measurement by glucometer (mas s/volume) 230 mg/dL 70-110 Comprehensive metabolic panel - 12/26/18 09:20 Serum or plasma sodium measurement (moles/volume) 131 mmol/L 135-145 Serum or plasma potassium measurement (moles/volume) 3.9 mmol/L 3.6-5.0 Serum or plasma chloride measurement (moles/volume) 96 mmol/L 98-107 Carbon dioxide 27 mmol/L 21-32 Serum or plasma anion gap determination (moles/volume) 8 mmol/L 5-14 Serum or plasma urea nitrogen measurement (mass/volume ) 32 mg/dL 7-18 Serum or plasma creatinine measurement (mass/volume) 1.34 mg/dL 0.60-1.30 Serum or plasma urea nitrogen/creatinine mass ratio 24 NRG Serum or plasma creatinine measurement w ith calculation of estimated glomerular filtration rate 52 NRG Serum or plasma glucose measurement (mass/volume) 193 mg/dL 70-105 Serum or plasma calcium measurement (mass/volume) 8.8 mg/dL 8.5-10.1 Serum or plasma total bilirubin measurement (mass/volu me) 0.4 mg/dL 0.1-1.0 Serum or plasma alkaline phosphatase lemuel surement (enzymatic activity/volume) 93 U/L 40-136 Serum or plasma aspartate aminotransfera se measurement (enzymatic activity/volume) 31 U/L 5-34 Serum or plasma alanine aminotransferase measurement (enzymatic activity/volume) 20 U/L 0-55 Serum or plasma protein measurement (mass/volume) 6.6 g/dL 6.4-8.2 Serum or plasma albumin measurement (mass/volume) 3.3 g/dL 3.2-4.5 CALCIUM CORRECTED 9.4 mg/dL 8.5-10.1 Serum or plasma troponin i.cardiac measu rement (mass/volume) - 12/26/18 09:20 Serum or plasma troponin i.cardiac measurement (mass/v olume) < ng/mL <0.028 THYROID STIMULATING HORMONE - 12/26/18 0 9:20 THYROID STIMULATING HORMONE 1.45 u[iU]/mL 0.35-4.94 Serum or plasma folate measurement (mass /volume) - 12/26/18 09:20 Serum or plasma folate measurement (mass/volume) 1 5.9 % >=4.0 Hemoglobin A1c measurement - 12/26/18 09 :20 Blood hemoglobin A1C measurement (mass/volume) 8.8 % 4.0-5.6 MEAN BLOOD GLUCOSE 206 % <=126 VITAMIN B 12 - 12/26/18 09:20 VITAMIN B 12 384 pg/mL 190-1100 Capillary blood glucose measurement by g lucometer (mass/volume) - 12/26/18 11:29 Capillary blood glucose measurement by glucometer (mas s/volume) 138 mg/dL 70-110 Capillary blood glucose measurement by g lucometer (mass/volume) - 12/26/18 16:57 Capillary blood glucose measurement by glucometer (mas s/volume) 85 mg/dL 70-110 Capillary blood glucose measurement by g lucometer (mass/volume) - 12/26/18 21:28 Capillary blood glucose measurement by glucometer (mas s/volume) 260 mg/dL 70-110 Complete urinalysis with reflex to cultu re - 12/26/18 22:47 Urine color determination YELLOW NRG Urine clarity determination SL CLOUDY N RG Urine pH measurement by test strip 5 5-9 Specific gravity of urine by test strip 1.015 1.016-1.022 Urine protein assay by test strip, semi-quantitative 2+ NEGATIVE Urine glucose detection by automated test strip NE GATIVE NEGATIVE Erythrocytes detection in urine sediment by light micr oscopy 3+ NEGATIVE Urine ketones detection by automated test strip NE GATIVE NEGATIVE Urine nitrite detection by test strip NEGATIVE NEGATIVE Urine total bilirubin detection by test strip NEGA TIVE NEGATIVE Urine urobilinogen measurement by automated test strip (mass/volume) NORMAL NORMAL Urine leukocyte esterase detection by dipstick 3+ NEGATIVE Automated urine sediment erythrocyte cou nt by microscopy (number/high power field) [HPF] NRG Automated urine sediment leukocyte count by microscopy (number/high power field) [HPF] NRG Bacteria detection in urine sediment by light microsco py FEW NRG Crystals detection in urine sediment by light microsco py NONE NRG Casts detection in urine sediment by light microscopy NONE NRG Mucus detection in urine sediment by light microscopy NEGATIVE NRG Complete urinalysis with reflex to culture YES NRG Yeast detection in urine sediment by light microscopy MODERATE NRG Bacterial urine culture - 12/26/18 22:47 Bacterial urine culture 3 OR MORE NRG COLONY COUNT 30,000 CFU/ML NRG FTX;REPORTABLE GRAM POSITIVE ISOLATES; SUGGESTING NRG FREE TEXT ENTRY 2 PROBABLE COLLECTION CONTAMINATIO N WITH NRG FREE TEXT ENTRY 3 SKIN LINDA. NO SUSCEPTIBILITY PE RFORMED. NRG Complete blood count (CBC) with automate d white blood cell (WBC) differential - 12/27/18 03:50 Blood leukocytes automated count (number/volume) 6.4 10*3/uL 4.3-11.0 Blood erythrocytes automated count (number/volume) 3.89 10*6/uL 4.35-5.85 Venous blood hemoglobin measurement (mass/volume) 10.5 g/dL 13.3-17.7 Blood hematocrit (volume fraction) 32 % 40-54 Automated erythrocyte mean corpuscular volume 83 [ foz_us] 80-99 Automated erythrocyte mean corpuscular h emoglobin (mass per erythrocyte) 27 pg 25-34 Automated erythrocyte mean corpuscular h emoglobin concentration measurement (mass/volume) 33 g/dL 32-36 Automated erythrocyte distribution width ratio 16. 7 % 10.0- 14.5 Automated blood platelet count (count/volume) 188 10*3/uL 130-400 Automated blood platelet mean volume measurement 10.6 [foz_us] 7.4-10.4 Automated blood neutrophils/100 leukocytes 63 % 42-75 Automated blood lymphocytes/100 leukocytes 20 % 12-44 Blood monocytes/100 leukocytes 10 % 0-12 Automated blood eosinophils/100 leukocytes 7 % 0-10 Automated blood basophils/100 leukocytes 1 % 0-10 Blood neutrophils automated count (number/volume) 4.0 10*3 1.8-7.8 Blood lymphocytes automated count (number/volume) 1.3 10*3 1.0-4.0 Blood monocytes automated count (number/volume) 0. 6 10*3 0.0-1.0 Automated eosinophil count 0.4 10*3/uL 0 .0-0.3 Automated blood basophil count (count/volume) 0.0 10*3/uL 0.0-0.1 Comprehensive metabolic panel - 12/27/18 03:50 Serum or plasma sodium measurement (moles/volume) 135 mmol/L 135-145 Serum or plasma potassium measurement (moles/volume) 3.9 mmol/L 3.6-5.0 Serum or plasma chloride measurement (moles/volume) 98 mmol/L 98-107 Carbon dioxide 25 mmol/L 21-32 Serum or plasma anion gap determination (moles/volume) 12 mmol/L 5-14 Serum or plasma urea nitrogen measurement (mass/volume ) 30 mg/dL 7-18 Serum or plasma creatinine measurement (mass/volume) 1.31 mg/dL 0.60-1.30 Serum or plasma urea nitrogen/creatinine mass ratio 23 NRG Serum or plasma creatinine measurement w ith calculation of estimated glomerular filtration rate 53 NRG Serum or plasma glucose measurement (mass/volume) 123 mg/dL 70-105 Serum or plasma calcium measurement (mass/volume) 8.9 mg/dL 8.5-10.1 Serum or plasma total bilirubin measurement (mass/volu me) 0.4 mg/dL 0.1-1.0 Serum or plasma alkaline phosphatase lemuel surement (enzymatic activity/volume) 68 U/L 40-136 Serum or plasma aspartate aminotransfera se measurement (enzymatic activity/volume) 27 U/L 5-34 Serum or plasma alanine aminotransferase measurement (enzymatic activity/volume) 15 U/L 0-55 Serum or plasma protein measurement (mass/volume) 6.4 g/dL 6.4-8.2 Serum or plasma albumin measurement (mass/volume) 3.2 g/dL 3.2-4.5 CALCIUM CORRECTED 9.5 mg/dL 8.5-10.1 Capillary blood glucose measurement by g lucometer (mass/volume) - 12/27/18 14:14 Capillary blood glucose measurement by glucometer (mas s/volume) 163 mg/dL 70-110 Capillary blood glucose measurement by g lucometer (mass/volume) - 12/27/18 16:05 Capillary blood glucose measurement by glucometer (mas s/volume) 184 mg/dL 70-110 Capillary blood glucose measurement by g lucometer (mass/volume) - 12/27/18 23:20 Capillary blood glucose measurement by glucometer (mas s/volume) 260 mg/dL 70-110 Capillary blood glucose measurement by g lucometer (mass/volume) - 12/28/18 06:15 Capillary blood glucose measurement by glucometer (mas s/volume) 128 mg/dL 70-110 Capillary blood glucose measurement by g lucometer (mass/volume) - 12/28/18 10:35 Capillary blood glucose measurement by glucometer (mas s/volume) 158 mg/dL 70-110 Capillary blood glucose measurement by g lucometer (mass/volume) - 12/28/18 16:12 Capillary blood glucose measurement by glucometer (mas s/volume) 194 mg/dL 70-110 Capillary blood glucose measurement by g lucometer (mass/volume) - 12/28/18 20:40 Capillary blood glucose measurement by glucometer (mas s/volume) 199 mg/dL 70-110 Automated blood complete blood count (he mogram) panel - 12/29/18 02:41 Blood leukocytes automated count (number/volume) 7.2 10*3/uL 4.3-11.0 Blood erythrocytes automated count (number/volume) 4.09 10*6/uL 4.35-5.85 Venous blood hemoglobin measurement (mass/volume) 10.9 g/dL 13.3-17.7 Blood hematocrit (volume fraction) 34 % 40-54 Automated erythrocyte mean corpuscular volume 84 [ foz_us] 80-99 Automated erythrocyte mean corpuscular h emoglobin (mass per erythrocyte) 27 pg 25-34 Automated erythrocyte mean corpuscular h emoglobin concentration measurement (mass/volume) 32 g/dL 32-36 Automated erythrocyte distribution width ratio 16. 6 % 10.0- 14.5 Automated blood platelet count (count/volume) 213 10*3/uL 130-400 Automated blood platelet mean volume measurement 10.3 [foz_us] 7.4-10.4 Whole blood basic metabolic panel - 12/05 08/22 02:41 Serum or plasma sodium measurement (moles/volume) 137 mmol/L 135-145 Serum or plasma potassium measurement (moles/volume) 4.4 mmol/L 3.6-5.0 Serum or plasma chloride measurement (moles/volume) 98 mmol/L 98-107 Carbon dioxide 26 mmol/L 21-32 Serum or plasma anion gap determination (moles/volume) 13 mmol/L 5-14 Serum or plasma urea nitrogen measurement (mass/volume ) 22 mg/dL 7-18 Serum or plasma creatinine measurement (mass/volume) 1.29 mg/dL 0.60-1.30 Serum or plasma urea nitrogen/creatinine mass ratio 17 NRG Serum or plasma creatinine measurement w ith calculation of estimated glomerular filtration rate 54 NRG Serum or plasma glucose measurement (mass/volume) 183 mg/dL 70-105 Serum or plasma calcium measurement (mass/volume) 8.9 mg/dL 8.5-10.1 Capillary blood glucose measurement by g lucometer (mass/volume) - 12/29/18 11:18 Capillary blood glucose measurement by glucometer (mas s/volume) 252 mg/dL 70-110 Capillary blood glucose measurement by g lucometer (mass/volume) - 12/29/18 16:07 Capillary blood glucose measurement by glucometer (mas s/volume) 222 mg/dL 70-110 Capillary blood glucose measurement by g lucometer (mass/volume) - 12/29/18 20:40 Capillary blood glucose measurement by glucometer (mas s/volume) 174 mg/dL 70-110 Capillary blood glucose measurement by g lucometer (mass/volume) - 12/30/18 06:25 Capillary blood glucose measurement by glucometer (mas s/volume) 136 mg/dL 70-110 Capillary blood glucose measurement by g lucometer (mass/volume) - 12/30/18 11:25 Capillary blood glucose measurement by glucometer (mas s/volume) 206 mg/dL 70-110 Capillary blood glucose measurement by g lucometer (mass/volume) - 12/30/18 16:12 Capillary blood glucose measurement by glucometer (mas s/volume) 159 mg/dL 70-110 Capillary blood glucose measurement by g lucometer (mass/volume) - 12/30/18 20:35 Capillary blood glucose measurement by glucometer (mas s/volume) 152 mg/dL 70-110 Capillary blood glucose measurement by g lucometer (mass/volume) - 12/31/18 05:44 Capillary blood glucose measurement by glucometer (mas s/volume) 152 mg/dL 70-110 Capillary blood glucose measurement by g lucometer (mass/volume) - 12/31/18 10:48 Capillary blood glucose measurement by glucometer (mas s/volume) 179 mg/dL 70-110 Capillary blood glucose measurement by g lucometer (mass/volume) - 12/31/18 16:33 Capillary blood glucose measurement by glucometer (mas s/volume) 173 mg/dL 70-110 Complete urinalysis with reflex to cultu re - 04/01/19 19:42 Urine color determination YELLOW NRG Urine clarity determination CLOUDY NR G Urine pH measurement by test strip 6.0 5-9 Specific gravity of urine by test strip 1.020 1.016-1.022 Urine protein assay by test strip, semi-quantitative 1+ NEGATIVE Urine glucose detection by automated test strip NE GATIVE NEGATIVE Erythrocytes detection in urine sediment by light micr oscopy 2+ NEGATIVE Urine ketones detection by automated test strip NE GATIVE NEGATIVE Urine nitrite detection by test strip NEGATIVE NEGATIVE Urine total bilirubin detection by test strip NEGA TIVE NEGATIVE Urine urobilinogen measurement by automated test strip (mass/volume) 0.2 mg/dL < = 1.0 Urine leukocyte esterase detection by dipstick 2+ NEGATIVE Automated urine sediment erythrocyte cou nt by microscopy (number/high power field) RARE NRG Automated urine sediment leukocyte count by microscopy (number/high power field) TNTC NRG Bacteria detection in urine sediment by light microsco py MODERATE NRG Squamous epithelial cells detection in u rine sediment by light microscopy RARE NRG Crystals detection in urine sediment by light microsco py NONE NRG Casts detection in urine sediment by light microscopy NONE NRG Mucus detection in urine sediment by light microscopy NEGATIVE NRG Complete urinalysis with reflex to culture YES NRG Bacterial urine culture - 04/01/19 19:42 Bacterial urine culture [id number] NRG COLONY COUNT 60,000 cfu/ml NRG FREE TEXT ENTRY 2 PRELIM ID TEST AT [facility] 04/03 11:05 NRG FREE TEXT ENTRY 3 RML CONFIRMED ID 04/03 12:05 NRG Complete blood count (CBC) with automate d white blood cell (WBC) differential - 04/01/19 19:54 Blood leukocytes automated count (number/volume) 9.9 10*3/uL 4.3-11.0 Blood erythrocytes automated count (number/volume) 4.64 10*6/uL 4.35-5.85 Venous blood hemoglobin measurement (mass/volume) 12.1 g/dL 13.3-17.7 Blood hematocrit (volume fraction) 38 % 40-54 Automated erythrocyte mean corpuscular volume 82 [ foz_us] 80-99 Automated erythrocyte mean corpuscular h emoglobin (mass per erythrocyte) 26 pg 25-34 Automated erythrocyte mean corpuscular h emoglobin concentration measurement (mass/volume) 32 g/dL 32-36 Automated erythrocyte distribution width ratio 15. 5 % 10.0- 14.5 Automated blood platelet count (count/volume) 246 10*3/uL 130-400 Automated blood platelet mean volume measurement 10.7 [foz_us] 7.4-10.4 Automated blood neutrophils/100 leukocytes 82 % 42-75 Automated blood lymphocytes/100 leukocytes 9 % 12-44 Blood monocytes/100 leukocytes 8 % 0-12 Automated blood eosinophils/100 leukocytes 1 % 0-10 Automated blood basophils/100 leukocytes 0 % 0-10 Blood neutrophils automated count (number/volume) 8.2 10*3 1.8-7.8 Blood lymphocytes automated count (number/volume) 0.9 10*3 1.0-4.0 Blood monocytes automated count (number/volume) 0. 8 10*3 0.0-1.0 Automated eosinophil count 0.1 10*3/uL 0 .0-0.3 Automated blood basophil count (count/volume) 0.0 10*3/uL 0.0-0.1 Blood lactic acid measurement (moles/vol ume) - 04/01/19 19:54 Blood lactic acid measurement (moles/volume) 1.77 mmol/L 0.50-2.00 PT panel in platelet poor plasma by coag ulation assay - 04/01/19 19:54 Prothrombin time (PT) in platelet poor plasma by coagu lation assay 15.0 s 12.2-14.7 INR in platelet poor plasma or blood by coagulation as say 1.1 0.8-1.4 Activated partial thromboplastin time (a PTT) in platelet poor plasma bycoagulation assay - 04/01/19 19:54 Activated partial thromboplastin time (a PTT) in platelet poor plasma bycoagulation assay 37 s 24-35 Comprehensive metabolic panel - 04/01/19 19:54 Serum or plasma sodium measurement (moles/volume) 141 mmol/L 135-145 Serum or plasma potassium measurement (moles/volume) 4.4 mmol/L 3.6-5.0 Serum or plasma chloride measurement (moles/volume) 104 mmol/L 98-107 Carbon dioxide 20 mmol/L 21-32 Serum or plasma anion gap determination (moles/volume) 17 mmol/L 5-14 Serum or plasma urea nitrogen measurement (mass/volume ) 31 mg/dL 7-18 Serum or plasma creatinine measurement (mass/volume) 1.52 mg/dL 0.60-1.30 Serum or plasma urea nitrogen/creatinine mass ratio 20 NRG Serum or plasma creatinine measurement w ith calculation of estimated glomerular filtration rate 45 NRG Serum or plasma glucose measurement (mass/volume) 190 mg/dL 70-105 Serum or plasma calcium measurement (mass/volume) 9.3 mg/dL 8.5-10.1 Serum or plasma total bilirubin measurement (mass/volu me) 0.8 mg/dL 0.1-1.0 Serum or plasma alkaline phosphatase lemuel surement (enzymatic activity/volume) 80 U/L 40-136 Serum or plasma aspartate aminotransfera se measurement (enzymatic activity/volume) 50 U/L 5-34 Serum or plasma alanine aminotransferase measurement (enzymatic activity/volume) 18 U/L 0-55 Serum or plasma protein measurement (mass/volume) 6.9 g/dL 6.4-8.2 Serum or plasma albumin measurement (mass/volume) 3.5 g/dL 3.2-4.5 CALCIUM CORRECTED 9.7 mg/dL 8.5-10.1 Magnesium - 04/01/19 19:54 Magnesium 1.3 mg/dL 1.6-2.4 Serum or plasma lithium measurement (mol es/volume) - 04/01/19 19:54 BNP PT 87.1 pg/mL <100.0 Bacterial blood culture - 04/01/19 19:54 FREE TEXT EXTERNAL RML REPORTED ID 04/03/19 11:05 NRG QUANTITY OF GROWTH Isolated NRG Bacterial blood culture [id number] NRG FREE TEXT ENTRY 2 PRELIM RAPID ID TEST AT [facility] 04/03 8:00 NRG FREE TEXT ENTRY 3 (VIRIDANS STREP) NRG FREE TEXT ENTRY 4 NO SUSCEPTIBILTY PERFORMED NR [facility] - 04/01/19 19:5 4 Gentamicin susceptibility test by minimum inhibitory c oncentration <= NRG Trimethoprim/sulfamethoxazole susceptibi lity test by minimum inhibitoryconcentration <= NRG Levofloxacin susceptibility test by minimum inhibitory concentration <= NRG Ampicillin susceptibility test by minimum inhibitory c oncentration > NRG Cefazolin susceptibility test by minimum inhibitory co ncentration 8 NRG Ceftriaxone susceptibility test by minimum inhibitory concentration <= NRG Piperacillin/tazobactam susceptibility t est by minimum inhibitory concentration = NRG Ciprofloxacin susceptibility test by minimum inhibitor y concentration <= NRG Meropenem susceptibility test by minimum inhibitory co ncentration 0.5 NRG Amoxicillin and clavulanate potassium susc ANNA = NRG Imipenem susceptibility test by minimum inhibitory con centration S NRG Bacterial blood culture - 04/01/19 20:19 Bacterial blood culture NG NRG Capillary blood glucose measurement by g lucometer (mass/volume) - 04/02/19 05:24 Capillary blood glucose measurement by glucometer (mas s/volume) 175 mg/dL 70-110 Complete blood count (CBC) with automate d white blood cell (WBC) differential - 04/02/19 06:28 Blood leukocytes automated count (number/volume) 8.8 10*3/uL 4.3-11.0 Blood erythrocytes automated count (number/volume) 4.19 10*6/uL 4.35-5.85 Venous blood hemoglobin measurement (mass/volume) 11.0 g/dL 13.3-17.7 Blood hematocrit (volume fraction) 35 % 40-54 Automated erythrocyte mean corpuscular volume 83 [ foz_us] 80-99 Automated erythrocyte mean corpuscular h emoglobin (mass per erythrocyte) 26 pg 25-34 Automated erythrocyte mean corpuscular h emoglobin concentration measurement (mass/volume) 32 g/dL 32-36 Automated erythrocyte distribution width ratio 15. 3 % 10.0- 14.5 Automated blood platelet count (count/volume) 220 10*3/uL 130-400 Automated blood platelet mean volume measurement 11.1 [foz_us] 7.4-10.4 Automated blood neutrophils/100 leukocytes 75 % 42-75 Automated blood lymphocytes/100 leukocytes 13 % 12-44 Blood monocytes/100 leukocytes 9 % 0-12 Automated blood eosinophils/100 leukocytes 3 % 0-10 Automated blood basophils/100 leukocytes 0 % 0-10 Blood neutrophils automated count (number/volume) 6.6 10*3 1.8-7.8 Blood lymphocytes automated count (number/volume) 1.2 10*3 1.0-4.0 Blood monocytes automated count (number/volume) 0. 8 10*3 0.0-1.0 Automated eosinophil count 0.2 10*3/uL 0 .0-0.3 Automated blood basophil count (count/volume) 0.0 10*3/uL 0.0-0.1 Comprehensive metabolic panel - 04/02/19 06:28 Serum or plasma sodium measurement (moles/volume) 137 mmol/L 135-145 Serum or plasma potassium measurement (moles/volume) 4.1 mmol/L 3.6-5.0 Serum or plasma chloride measurement (moles/volume) 101 mmol/L 98-107 Carbon dioxide 23 mmol/L 21-32 Serum or plasma anion gap determination (moles/volume) 13 mmol/L 5-14 Serum or plasma urea nitrogen measurement (mass/volume ) 32 mg/dL 7-18 Serum or plasma creatinine measurement (mass/volume) 1.37 mg/dL 0.60-1.30 Serum or plasma urea nitrogen/creatinine mass ratio 23 NRG Serum or plasma creatinine measurement w ith calculation of estimated glomerular filtration rate 51 NRG Serum or plasma glucose measurement (mass/volume) 168 mg/dL 70-105 Serum or plasma calcium measurement (mass/volume) 8.9 mg/dL 8.5-10.1 Serum or plasma total bilirubin measurement (mass/volu me) 0.6 mg/dL 0.1-1.0 Serum or plasma alkaline phosphatase lemuel surement (enzymatic activity/volume) 71 U/L 40-136 Serum or plasma aspartate aminotransfera se measurement (enzymatic activity/volume) 46 U/L 5-34 Serum or plasma alanine aminotransferase measurement (enzymatic activity/volume) 16 U/L 0-55 Serum or plasma protein measurement (mass/volume) 6.2 g/dL 6.4-8.2 Serum or plasma albumin measurement (mass/volume) 3.2 g/dL 3.2-4.5 CALCIUM CORRECTED 9.5 mg/dL 8.5-10.1 Magnesium - 04/02/19 06:28 Magnesium 2.2 mg/dL 1.6-2.4 Hemoglobin A1c measurement - 04/02/19 06 :28 Blood hemoglobin A1C measurement (mass/volume) 6.8 % 4.0-5.6 MEAN BLOOD GLUCOSE 148 % <=126 Capillary blood glucose measurement by g lucometer (mass/volume) - 04/02/19 11:41 Capillary blood glucose measurement by glucometer (mas s/volume) 306 mg/dL 70-110 Capillary blood glucose measurement by g lucometer (mass/volume) - 04/02/19 15:54 Capillary blood glucose measurement by glucometer (mas s/volume) 159 mg/dL 70-110 Capillary blood glucose measurement by g lucometer (mass/volume) - 04/02/19 21:06 Capillary blood glucose measurement by glucometer (mas s/volume) 197 mg/dL 70-110 Automated blood complete blood count (he mogram) panel - 04/03/19 05:35 Blood leukocytes automated count (number/volume) 6.4 10*3/uL 4.3-11.0 Blood erythrocytes automated count (number/volume) 3.83 10*6/uL 4.35-5.85 Venous blood hemoglobin measurement (mass/volume) 9.9 g/dL 13.3-17.7 Blood hematocrit (volume fraction) 32 % 40-54 Automated erythrocyte mean corpuscular volume 83 [ foz_us] 80-99 Automated erythrocyte mean corpuscular h emoglobin (mass per erythrocyte) 26 pg 25-34 Automated erythrocyte mean corpuscular h emoglobin concentration measurement (mass/volume) 31 g/dL 32-36 Automated erythrocyte distribution width ratio 15. 3 % 10.0- 14.5 Automated blood platelet count (count/volume) 185 10*3/uL 130-400 Automated blood platelet mean volume measurement 11.1 [foz_us] 7.4-10.4 Comprehensive metabolic panel - 04/03/19 05:35 Serum or plasma sodium measurement (moles/volume) 134 mmol/L 135-145 Serum or plasma potassium measurement (moles/volume) 4.1 mmol/L 3.6-5.0 Serum or plasma chloride measurement (moles/volume) 102 mmol/L 98-107 Carbon dioxide 25 mmol/L 21-32 Serum or plasma anion gap determination (moles/volume) 7 mmol/L 5-14 Serum or plasma urea nitrogen measurement (mass/volume ) 35 mg/dL 7-18 Serum or plasma creatinine measurement (mass/volume) 1.39 mg/dL 0.60-1.30 Serum or plasma urea nitrogen/creatinine mass ratio 25 NRG Serum or plasma creatinine measurement w ith calculation of estimated glomerular filtration rate 50 NRG Serum or plasma glucose measurement (mass/volume) 172 mg/dL 70-105 Serum or plasma calcium measurement (mass/volume) 8.1 mg/dL 8.5-10.1 Serum or plasma total bilirubin measurement (mass/volu me) 0.3 mg/dL 0.1-1.0 Serum or plasma alkaline phosphatase lemuel surement (enzymatic activity/volume) 71 U/L 40-136 Serum or plasma aspartate aminotransfera se measurement (enzymatic activity/volume) 34 U/L 5-34 Serum or plasma alanine aminotransferase measurement (enzymatic activity/volume) 13 U/L 0-55 Serum or plasma protein measurement (mass/volume) 5.5 g/dL 6.4-8.2 Serum or plasma albumin measurement (mass/volume) 2.8 g/dL 3.2-4.5 CALCIUM CORRECTED 9.1 mg/dL 8.5-10.1 Capillary blood glucose measurement by g lucometer (mass/volume) - 04/03/19 06:03 Capillary blood glucose measurement by glucometer (mas s/volume) 173 mg/dL 70-110 Capillary blood glucose measurement by g lucometer (mass/volume) - 04/03/19 11:18 Capillary blood glucose measurement by glucometer (mas s/volume) 227 mg/dL 70-110 Capillary blood glucose measurement by g lucometer (mass/volume) - 04/03/19 15:18 Capillary blood glucose measurement by glucometer (mas s/volume) 244 mg/dL 70-110 Capillary blood glucose measurement by g lucometer (mass/volume) - 04/03/19 16:01 Capillary blood glucose measurement by glucometer (mas s/volume) 219 mg/dL 70-110 Capillary blood glucose measurement by g lucometer (mass/volume) - 04/03/19 21:13 Capillary blood glucose measurement by glucometer (mas s/volume) 209 mg/dL 70-110 Complete urinalysis with reflex to cultu re - 04/03/19 21:20 Urine color determination YELLOW NRG Urine clarity determination CLEAR NR G Urine pH measurement by test strip 6.0 5-9 Specific gravity of urine by test strip 1.025 1.016-1.022 Urine protein assay by test strip, semi-quantitative 1+ NEGATIVE Urine glucose detection by automated test strip NE GATIVE NEGATIVE Erythrocytes detection in urine sediment by light micr oscopy 1+ NEGATIVE Urine ketones detection by automated test strip NE GATIVE NEGATIVE Urine nitrite detection by test strip NEGATIVE NEGATIVE Urine total bilirubin detection by test strip NEGA TIVE NEGATIVE Urine urobilinogen measurement by automated test strip (mass/volume) 0.2 mg/dL < = 1.0 Urine leukocyte esterase detection by dipstick 2+ NEGATIVE Automated urine sediment erythrocyte cou nt by microscopy (number/high power field) [HPF] NRG Automated urine sediment leukocyte count by microscopy (number/high power field) > [HPF] NRG Bacteria detection in urine sediment by light microsco py TRACE NRG Squamous epithelial cells detection in u rine sediment by light microscopy RARE NRG Crystals detection in urine sediment by light microsco py NONE NRG Casts detection in urine sediment by light microscopy NONE NRG Mucus detection in urine sediment by light microscopy NEGATIVE NRG Complete urinalysis with reflex to culture YES NRG Yeast detection in urine sediment by light microscopy MODERATE NRG Bacterial urine culture - 04/03/19 21:20 Bacterial urine culture [id number] NRG COLONY COUNT 30,000 CFU/ML NRG Capillary blood glucose measurement by g lucometer (mass/volume) - 04/04/19 05:33 Capillary blood glucose measurement by glucometer (mas s/volume) 262 mg/dL 70-110 Automated blood complete blood count (he mogram) panel - 04/04/19 05:55 Blood leukocytes automated count (number/volume) 7.9 10*3/uL 4.3-11.0 Blood erythrocytes automated count (number/volume) 4.30 10*6/uL 4.35-5.85 Venous blood hemoglobin measurement (mass/volume) 11.2 g/dL 13.3-17.7 Blood hematocrit (volume fraction) 35 % 40-54 Automated erythrocyte mean corpuscular volume 81 [ foz_us] 80-99 Automated erythrocyte mean corpuscular h emoglobin (mass per erythrocyte) 26 pg 25-34 Automated erythrocyte mean corpuscular h emoglobin concentration measurement (mass/volume) 32 g/dL 32-36 Automated erythrocyte distribution width ratio 14. 9 % 10.0- 14.5 Automated blood platelet count (count/volume) 201 10*3/uL 130-400 Automated blood platelet mean volume measurement 11.2 [foz_us] 7.4-10.4 Comprehensive metabolic panel - 04/04/19 05:55 Serum or plasma sodium measurement (moles/volume) 134 mmol/L 135-145 Serum or plasma potassium measurement (moles/volume) 4.2 mmol/L 3.6-5.0 Serum or plasma chloride measurement (moles/volume) 101 mmol/L 98-107 Carbon dioxide 21 mmol/L 21-32 Serum or plasma anion gap determination (moles/volume) 12 mmol/L 5-14 Serum or plasma urea nitrogen measurement (mass/volume ) 25 mg/dL 7-18 Serum or plasma creatinine measurement (mass/volume) 1.10 mg/dL 0.60-1.30 Serum or plasma urea nitrogen/creatinine mass ratio 23 NRG Serum or plasma creatinine measurement w ith calculation of estimated glomerular filtration rate > NRG Serum or plasma glucose measurement (mass/volume) 244 mg/dL 70-105 Serum or plasma calcium measurement (mass/volume) 8.5 mg/dL 8.5-10.1 Serum or plasma total bilirubin measurement (mass/volu me) 1.1 mg/dL 0.1-1.0 Serum or plasma alkaline phosphatase lemuel surement (enzymatic activity/volume) 154 U/L 40-136 Serum or plasma aspartate aminotransfera se measurement (enzymatic activity/volume) 201 U/L 5-34 Serum or plasma alanine aminotransferase measurement (enzymatic activity/volume) 83 U/L 0-55 Serum or plasma protein measurement (mass/volume) 6.2 g/dL 6.4-8.2 Serum or plasma albumin measurement (mass/volume) 3.1 g/dL 3.2-4.5 CALCIUM CORRECTED 9.2 mg/dL 8.5-10.1 Capillary blood glucose measurement by g lucometer (mass/volume) - 04/04/19 11:23 Capillary blood glucose measurement by glucometer (mas s/volume) 250 mg/dL 70-110 Capillary blood glucose measurement by g lucometer (mass/volume) - 04/04/19 16:26 Capillary blood glucose measurement by glucometer (mas s/volume) 222 mg/dL 70-110 Capillary blood glucose measurement by g lucometer (mass/volume) - 04/04/19 21:46 Capillary blood glucose measurement by glucometer (mas s/volume) 218 mg/dL 70-110 Automated blood complete blood count (he mogram) panel - 04/05/19 04:40 Blood leukocytes automated count (number/volume) 5.1 10*3/uL 4.3-11.0 Blood erythrocytes automated count (number/volume) 4.15 10*6/uL 4.35-5.85 Venous blood hemoglobin measurement (mass/volume) 10.6 g/dL 13.3-17.7 Blood hematocrit (volume fraction) 34 % 40-54 Automated erythrocyte mean corpuscular volume 81 [ foz_us] 80-99 Automated erythrocyte mean corpuscular h emoglobin (mass per erythrocyte) 26 pg 25-34 Automated erythrocyte mean corpuscular h emoglobin concentration measurement (mass/volume) 32 g/dL 32-36 Automated erythrocyte distribution width ratio 15. 0 % 10.0- 14.5 Automated blood platelet count (count/volume) 181 10*3/uL 130-400 Automated blood platelet mean volume measurement 10.9 [foz_us] 7.4-10.4 Comprehensive metabolic panel - 04/05/19 04:40 Serum or plasma sodium measurement (moles/volume) 133 mmol/L 135-145 Serum or plasma potassium measurement (moles/volume) 4.1 mmol/L 3.6-5.0 Serum or plasma chloride measurement (moles/volume) 102 mmol/L 98-107 Carbon dioxide 25 mmol/L 21-32 Serum or plasma anion gap determination (moles/volume) 6 mmol/L 5-14 Serum or plasma urea nitrogen measurement (mass/volume ) 19 mg/dL 7-18 Serum or plasma creatinine measurement (mass/volume) 0.92 mg/dL 0.60-1.30 Serum or plasma urea nitrogen/creatinine mass ratio 21 NRG Serum or plasma creatinine measurement w ith calculation of estimated glomerular filtration rate > NRG Serum or plasma glucose measurement (mass/volume) 177 mg/dL 70-105 Serum or plasma calcium measurement (mass/volume) 8.4 mg/dL 8.5-10.1 Serum or plasma total bilirubin measurement (mass/volu me) 2.6 mg/dL 0.1-1.0 Serum or plasma alkaline phosphatase lemuel surement (enzymatic activity/volume) 195 U/L 40-136 Serum or plasma aspartate aminotransfera se measurement (enzymatic activity/volume) 337 U/L 5-34 Serum or plasma alanine aminotransferase measurement (enzymatic activity/volume) 224 U/L 0-55 Serum or plasma protein measurement (mass/volume) 5.7 g/dL 6.4-8.2 Serum or plasma albumin measurement (mass/volume) 2.8 g/dL 3.2-4.5 CALCIUM CORRECTED 9.4 mg/dL 8.5-10.1 Capillary blood glucose measurement by g lucometer (mass/volume) - 04/05/19 11:27 Capillary blood glucose measurement by glucometer (mas s/volume) 191 mg/dL 70-110 Capillary blood glucose measurement by g lucometer (mass/volume) - 04/05/19 16:12 Capillary blood glucose measurement by glucometer (mas s/volume) 234 mg/dL 70-110 Capillary blood glucose measurement by g lucometer (mass/volume) - 04/05/19 20:42 Capillary blood glucose measurement by glucometer (mas s/volume) 213 mg/dL 70-110 Capillary blood glucose measurement by g lucometer (mass/volume) - 04/06/19 05:42 Capillary blood glucose measurement by glucometer (mas s/volume) 154 mg/dL 70-110 Automated blood complete blood count (he mogram) panel - 04/06/19 06:10 Blood leukocytes automated count (number/volume) 5.5 10*3/uL 4.3-11.0 Blood erythrocytes automated count (number/volume) 3.68 10*6/uL 4.35-5.85 Venous blood hemoglobin measurement (mass/volume) 9.7 g/dL 13.3-17.7 Blood hematocrit (volume fraction) 30 % 40-54 Automated erythrocyte mean corpuscular volume 82 [ foz_us] 80-99 Automated erythrocyte mean corpuscular h emoglobin (mass per erythrocyte) 26 pg 25-34 Automated erythrocyte mean corpuscular h emoglobin concentration measurement (mass/volume) 32 g/dL 32-36 Automated erythrocyte distribution width ratio 14. 9 % 10.0- 14.5 Automated blood platelet count (count/volume) 176 10*3/uL 130-400 Automated blood platelet mean volume measurement 11.0 [foz_us] 7.4-10.4 Comprehensive metabolic panel - 04/06/19 06:10 Serum or plasma sodium measurement (moles/volume) 134 mmol/L 135-145 Serum or plasma potassium measurement (moles/volume) 4.2 mmol/L 3.6-5.0 Serum or plasma chloride measurement (moles/volume) 104 mmol/L 98-107 Carbon dioxide 21 mmol/L 21-32 Serum or plasma anion gap determination (moles/volume) 9 mmol/L 5-14 Serum or plasma urea nitrogen measurement (mass/volume ) 22 mg/dL 7-18 Serum or plasma creatinine measurement (mass/volume) 1.07 mg/dL 0.60-1.30 Serum or plasma urea nitrogen/creatinine mass ratio 21 NRG Serum or plasma creatinine measurement w ith calculation of estimated glomerular filtration rate > NRG Serum or plasma glucose measurement (mass/volume) 154 mg/dL 70-105 Serum or plasma calcium measurement (mass/volume) 8.3 mg/dL 8.5-10.1 Serum or plasma total bilirubin measurement (mass/volu me) 0.8 mg/dL 0.1-1.0 Serum or plasma alkaline phosphatase lemuel surement (enzymatic activity/volume) 190 U/L 40-136 Serum or plasma aspartate aminotransfera se measurement (enzymatic activity/volume) 135 U/L 5-34 Serum or plasma alanine aminotransferase measurement (enzymatic activity/volume) 134 U/L 0-55 Serum or plasma protein measurement (mass/volume) 5.3 g/dL 6.4-8.2 Serum or plasma albumin measurement (mass/volume) 2.6 g/dL 3.2-4.5 CALCIUM CORRECTED 9.4 mg/dL 8.5-10.1 Capillary blood glucose measurement by g lucometer (mass/volume) - 04/06/19 11:09 Capillary blood glucose measurement by glucometer (mas s/volume) 144 mg/dL 70-110 Capillary blood glucose measurement by g lucometer (mass/volume) - 04/06/19 16:32 Capillary blood glucose measurement by glucometer (mas s/volume) 238 mg/dL 70-110 Capillary blood glucose measurement by g lucometer (mass/volume) - 04/06/19 20:32 Capillary blood glucose measurement by glucometer (mas s/volume) 178 mg/dL 70-110 Capillary blood glucose measurement by g lucometer (mass/volume) - 04/07/19 05:20 Capillary blood glucose measurement by glucometer (mas s/volume) 138 mg/dL 70-110 Automated blood complete blood count (he mogram) panel - 04/07/19 05:43 Blood leukocytes automated count (number/volume) 5.0 10*3/uL 4.3-11.0 Blood erythrocytes automated count (number/volume) 3.85 10*6/uL 4.35-5.85 Venous blood hemoglobin measurement (mass/volume) 10.0 g/dL 13.3-17.7 Blood hematocrit (volume fraction) 32 % 40-54 Automated erythrocyte mean corpuscular volume 83 [ foz_us] 80-99 Automated erythrocyte mean corpuscular h emoglobin (mass per erythrocyte) 26 pg 25-34 Automated erythrocyte mean corpuscular h emoglobin concentration measurement (mass/volume) 31 g/dL 32-36 Automated erythrocyte distribution width ratio 15. 3 % 10.0- 14.5 Automated blood platelet count (count/volume) 205 10*3/uL 130-400 Automated blood platelet mean volume measurement 11.0 [foz_us] 7.4-10.4 Comprehensive metabolic panel - 04/07/19 05:43 Serum or plasma sodium measurement (moles/volume) 135 mmol/L 135-145 Serum or plasma potassium measurement (moles/volume) 4.2 mmol/L 3.6-5.0 Serum or plasma chloride measurement (moles/volume) 103 mmol/L 98-107 Carbon dioxide 24 mmol/L 21-32 Serum or plasma anion gap determination (moles/volume) 8 mmol/L 5-14 Serum or plasma urea nitrogen measurement (mass/volume ) 21 mg/dL 7-18 Serum or plasma creatinine measurement (mass/volume) 1.06 mg/dL 0.60-1.30 Serum or plasma urea nitrogen/creatinine mass ratio 20 NRG Serum or plasma creatinine measurement w ith calculation of estimated glomerular filtration rate > NRG Serum or plasma glucose measurement (mass/volume) 152 mg/dL 70-105 Serum or plasma calcium measurement (mass/volume) 8.4 mg/dL 8.5-10.1 Serum or plasma total bilirubin measurement (mass/volu me) 0.5 mg/dL 0.1-1.0 Serum or plasma alkaline phosphatase lemuel surement (enzymatic activity/volume) 189 U/L 40-136 Serum or plasma aspartate aminotransfera se measurement (enzymatic activity/volume) 71 U/L 5-34 Serum or plasma alanine aminotransferase measurement (enzymatic activity/volume) 94 U/L 0-55 Serum or plasma protein measurement (mass/volume) 5.5 g/dL 6.4-8.2 Serum or plasma albumin measurement (mass/volume) 2.7 g/dL 3.2-4.5 CALCIUM CORRECTED 9.4 mg/dL 8.5-10.1 Capillary blood glucose measurement by g lucometer (mass/volume) - 04/07/19 10:59 Capillary blood glucose measurement by glucometer (mas s/volume) 246 mg/dL 70-110 Capillary blood glucose measurement by g lucometer (mass/volume) - 04/07/19 16:03 Capillary blood glucose measurement by glucometer (mas s/volume) 160 mg/dL 70-110 Capillary blood glucose measurement by g lucometer (mass/volume) - 04/07/19 21:14 Capillary blood glucose measurement by glucometer (mas s/volume) 235 mg/dL 70-110 Capillary blood glucose measurement by g lucometer (mass/volume) - 04/08/19 05:21 Capillary blood glucose measurement by glucometer (mas s/volume) 189 mg/dL 70-110 Capillary blood glucose measurement by g lucometer (mass/volume) - 04/08/19 11:29 Capillary blood glucose measurement by glucometer (mas s/volume) 331 mg/dL 70-110 Capillary blood glucose measurement by g lucometer (mass/volume) - 04/08/19 16:15 Capillary blood glucose measurement by glucometer (mas s/volume) 174 mg/dL 70-110 Capillary blood glucose measurement by g lucometer (mass/volume) - 04/08/19 20:36 Capillary blood glucose measurement by glucometer (mas s/volume) 251 mg/dL 70-110 Automated blood complete blood count (he mogram) panel - 04/09/19 05:33 Blood leukocytes automated count (number/volume) 5.6 10*3/uL 4.3-11.0 Blood erythrocytes automated count (number/volume) 3.71 10*6/uL 4.35-5.85 Venous blood hemoglobin measurement (mass/volume) 9.5 g/dL 13.3-17.7 Blood hematocrit (volume fraction) 31 % 40-54 Automated erythrocyte mean corpuscular volume 83 [ foz_us] 80-99 Automated erythrocyte mean corpuscular h emoglobin (mass per erythrocyte) 26 pg 25-34 Automated erythrocyte mean corpuscular h emoglobin concentration measurement (mass/volume) 31 g/dL 32-36 Automated erythrocyte distribution width ratio 15. 3 % 10.0- 14.5 Automated blood platelet count (count/volume) 208 10*3/uL 130-400 Automated blood platelet mean volume measurement 11.1 [foz_us] 7.4-10.4 Comprehensive metabolic panel - 04/09/19 05:33 Serum or plasma sodium measurement (moles/volume) 135 mmol/L 135-145 Serum or plasma potassium measurement (moles/volume) 4.0 mmol/L 3.6-5.0 Serum or plasma chloride measurement (moles/volume) 103 mmol/L 98-107 Carbon dioxide 24 mmol/L 21-32 Serum or plasma anion gap determination (moles/volume) 8 mmol/L 5-14 Serum or plasma urea nitrogen measurement (mass/volume ) 17 mg/dL 7-18 Serum or plasma creatinine measurement (mass/volume) 1.07 mg/dL 0.60-1.30 Serum or plasma urea nitrogen/creatinine mass ratio 16 NRG Serum or plasma creatinine measurement w ith calculation of estimated glomerular filtration rate > NRG Serum or plasma glucose measurement (mass/volume) 187 mg/dL 70-105 Serum or plasma calcium measurement (mass/volume) 8.5 mg/dL 8.5-10.1 Serum or plasma total bilirubin measurement (mass/volu me) 0.4 mg/dL 0.1-1.0 Serum or plasma alkaline phosphatase lemuel surement (enzymatic activity/volume) 164 U/L 40-136 Serum or plasma aspartate aminotransfera se measurement (enzymatic activity/volume) 31 U/L 5-34 Serum or plasma alanine aminotransferase measurement (enzymatic activity/volume) 53 U/L 0-55 Serum or plasma protein measurement (mass/volume) 5.3 g/dL 6.4-8.2 Serum or plasma albumin measurement (mass/volume) 2.7 g/dL 3.2-4.5 CALCIUM CORRECTED 9.5 mg/dL 8.5-10.1 Capillary blood glucose measurement by g lucometer (mass/volume) - 04/09/19 06:11 Capillary blood glucose measurement by glucometer (mas s/volume) 162 mg/dL 70-110 Capillary blood glucose measurement by g lucometer (mass/volume) - 04/09/19 11:11 Capillary blood glucose measurement by glucometer (mas s/volume) 209 mg/dL 70-110 Complete blood count (CBC) with automate d white blood cell (WBC) differential - 08/13/19 13:10 Blood leukocytes automated count (number/volume) 7.9 10*3/uL 4.3-11.0 Blood erythrocytes automated count (number/volume) 3.98 10*6/uL 4.35-5.85 Venous blood hemoglobin measurement (mass/volume) 10.7 g/dL 13.3-17.7 Blood hematocrit (volume fraction) 33 % 40-54 Automated erythrocyte mean corpuscular volume 84 [ foz_us] 80-99 Automated erythrocyte mean corpuscular h emoglobin (mass per erythrocyte) 27 pg 25-34 Automated erythrocyte mean corpuscular h emoglobin concentration measurement (mass/volume) 32 g/dL 32-36 Automated erythrocyte distribution width ratio 16. 4 % 10.0- 14.5 Automated blood platelet count (count/volume) 186 10*3/uL 130-400 Automated blood platelet mean volume measurement 10.7 [foz_us] 7.4-10.4 Automated blood neutrophils/100 leukocytes 78 % 42-75 Automated blood lymphocytes/100 leukocytes 13 % 12-44 Blood monocytes/100 leukocytes 8 % 0-12 Automated blood eosinophils/100 leukocytes 1 % 0-10 Automated blood basophils/100 leukocytes 0 % 0-10 Blood neutrophils automated count (number/volume) 6.2 10*3 1.8-7.8 Blood lymphocytes automated count (number/volume) 1.1 10*3 1.0-4.0 Blood monocytes automated count (number/volume) 0. 6 10*3 0.0-1.0 Automated eosinophil count 0.1 10*3/uL 0 .0-0.3 Automated blood basophil count (count/volume) 0.0 10*3/uL 0.0-0.1 Comprehensive metabolic panel - 08/13/19 13:10 Serum or plasma sodium measurement (moles/volume) 134 mmol/L 135-145 Serum or plasma potassium measurement (moles/volume) 4.5 mmol/L 3.6-5.0 Serum or plasma chloride measurement (moles/volume) 101 mmol/L 98-107 Carbon dioxide 26 mmol/L 21-32 Serum or plasma anion gap determination (moles/volume) 7 mmol/L 5-14 Serum or plasma urea nitrogen measurement (mass/volume ) 17 mg/dL 7-18 Serum or plasma creatinine measurement (mass/volume) 1.24 mg/dL 0.60-1.30 Serum or plasma urea nitrogen/creatinine mass ratio 14 NRG Serum or plasma creatinine measurement w ith calculation of estimated glomerular filtration rate 57 NRG Serum or plasma glucose measurement (mass/volume) 188 mg/dL 70-105 Serum or plasma calcium measurement (mass/volume) 8.5 mg/dL 8.5-10.1 Serum or plasma total bilirubin measurement (mass/volu me) 0.4 mg/dL 0.1-1.0 Serum or plasma alkaline phosphatase lemuel surement (enzymatic activity/volume) 65 U/L 40-136 Serum or plasma aspartate aminotransfera se measurement (enzymatic activity/volume) 26 U/L 5-34 Serum or plasma alanine aminotransferase measurement (enzymatic activity/volume) 12 U/L 0-55 Serum or plasma protein measurement (mass/volume) 5.8 g/dL 6.4-8.2 Serum or plasma albumin measurement (mass/volume) 3.0 g/dL 3.2-4.5 CALCIUM CORRECTED 9.3 mg/dL 8.5-10.1 Serum or plasma C reactive protein measu rement (mass/volume) - 08/13/19 13:10 Serum or plasma C reactive protein measurement (mass/v olume) 1.18 mg/dL 0.00-0.50 Encounters ACCT No. Visit Date/Time Discharge Status Pt. 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 [id number] 09/24/2018 14:01:00 23:59:59 CLS Preadmit ANGELA ALEGRIA [facility] CARD CAD [id number] 01/03/2018 11:20:00 23:59:59 CLS Outpatient CAROL MARTINEZ MD [facility] CARD CAD [id number] 07/28/2017 16:11:00 018 20:18:00 DIS Inpatient TAMIKA WHITE DO [facility] ICU UTI;SEPSIS;CELL ULITIS L LEG [id number] 04/13/2017 00:22:00 018 23:59:59 CLS Preadmit TAMIKA WHITE DO [facility] LAB HEMATURIA [id number] 01/12/2017 12:35:00 018 00:01:00 DIS Outpatient TAMIKA WHITE DO [facility] LAB HEMATURIA [id number] 02/16/2017 12:06:00 017 23:59:59 CLS Outpatient MARTÍN FROST MD [facility] RAD HEMATURIA [id number] 11/22/2016 11:55:00 017 23:59:59 CLS Outpatient CAROL MARTINEZ MD [facility] CARD CAD I25.10 [id number] 09/23/2016 16:19:00 017 17:55:00 DIS Emergency SOWMYA JONES, ANN MARIE Ulrich [facility] ER PROBLEM W RT EYE [id number] 09/12/2016 20:22:00 017 00:19:00 DIS Emergency LIZET LOPEZ MD [facility] ER SOB,LT HAND EVERETTE ROPATHY [id number] 07/21/2016 08:45:00 017 16:00:00 DIS Outpatient ORZ SOLIS MD [facility] WOUNDCARE [id number] 07/13/2016 08:04:00 16:55:00 DIS Outpatient CAROL MARTINEZ MD [facility] CATH NON HEALING WOUND,ABNOR MAL NICK,CAD,HTN,HLP [id number] 06/23/2016 11:15:00 017 23:59:59 CLS Preadmit TAMIKA WHITE DO [facility] TYPE 2 DIABETES [id number] 03/24/2016 10:10:00 017 00:01:00 DIS Outpatient TAMIKA WHITE DO Via [facility] TYPE 2 DIABETES [id number] 06/09/2016 08:41:00 00:01:00 DIS Outpatient ROZ SOLIS MD Via [facility] WOUNDCARE [id number] 03/22/2016 08:59:00 23:59:59 CLS Outpatient ROZ SOLIS MD Via [facility] RAD L97.212 [id number] 01/20/2016 11:50:00 016 23:59:59 CLS Outpatient PRASHANTH SPEAR APRN Via [facility] RT SOB [id number] 01/11/2016 10:50:00 16:00:00 DIS Outpatient PRADIP MADISON MD Via [facility] WOUNDCARE [id number] 12/21/2015 22:26:00 00:43:00 DIS Emergency JOHANNA MCKENZIE DO Via [facility] ER CONGESTION [id number] 12/21/2015 13:19:00 23:59:59 CLS Outpatient ERASTO ALEGRIA Via [facility] CARD CAD,HTN,HLP [id number] 12/01/2015 09:11:00 08:43:00 DIS Outpatient PRADIP MADISON MD Via [facility] WOUNDCARE [id number] 12/03/2015 09:20:00 23:59:59 CLS Outpatient PRADIP MADISON MD Via [facility] RAD 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 [id number] 11/25/2015 15:53:00 13:50:00 DIS Inpatient CHRISTOPHER CONTRERAS TAMIKA Jill Via [facility] 4TH UTI,CHRONIC MILLER AL FAILURE [id number] 11/23/2015 11:52:00 23:59:59 CLS Outpatient PRADIP MADIOSN MD Via [facility] LAB NON PRESSURE CHRONIC UL CER OF RT CALF W/ FAT LAYER [id number] 11/13/2015 09:04:00 23:59:59 CLS Outpatient PRASHANTH SPEAR APRN Via [facility] RAD SOB [id number] 11/06/2015 10:29:00 23:59:59 CLS Outpatient RED KENT APRN Via [facility] QUICK [id number] 10/13/2015 08:25:00 23:59:59 CLS Outpatient CAROL MARTINEZ MD Via [facility] RAD PERIPHERAL VASCULAR ASE,LEG PAIN BILAT [id number] 09/21/2015 10:48:00 00:01:00 DIS Outpatient PRADIP MADISON MD Via [facility] WOUNDCARE [id number] 06/11/2015 11:23:00 016 13:34:00 DIS Inpatient TAMIKA WHITE DO Via [facility] 4TH RAPID RESPONSE [id number] 05/28/2015 14:30:00 016 10:45:00 DIS Inpatient MARÍA BERMUDEZ MD Via [facility] IRF PNEUMONIA,FLUID OVERFLO W [id number] 05/22/2015 21:33:00 016 14:20:00 DIS Inpatient TAMIKA WHITE DO Via [facility] 4TH PNEUMONIA,VOLUM E OVERLOAD [id number] 05/14/2015 00:15:00 016 16:00:00 DIS Inpatient TAMIKA WHITE DO Via [facility] 4TH FEVER,PNEUMONIA [id number] 05/19/2015 15:42:00 016 23:59:59 CLS Preadmit TAMIKA WHITE DO SWB [id number] 05/11/2015 10:53:00 016 23:59:59 CLS Outpatient PRADIP MADISON MD Via [facility] WOUNDCARE [id number] 03/02/2015 09:10:00 016 00:01:00 DIS Outpatient PRADIP MADISON MD Via [facility] WOUNDCARE [id number] 02/24/2015 20:40:00 015 06:45:00 DIS Outpatient PRASHANTH SPEAR APRN Via [facility] SLEEP SNORING,ISCHEMI C HEART DISEASE,EDS [id number] 01/06/2015 09:54:00 23:59:59 CLS Outpatient CAROL MARTINEZ MD Via [facility] CARD CAD,HTN,HLP,SOB [id number] 12/01/2014 10:51:00 015 00:01:00 DIS Outpatient PRADIP MADISON MD Via [facility] WOUNDCARE [id number] 11/28/2014 10:47:00 23:59:59 CLS Outpatient TAMIKA WHITE DO Via [facility] RAD SOA,SPIT UP TARAS FF [id number] 11/18/2014 11:58:00 015 23:59:59 CLS Outpatient PRADIP MADISON MD Via [facility] RAD PAD, VENOUS LEG ULCER [id number] 10/14/2014 09:42:00 015 23:59:59 CLS Outpatient PRADIP MADISON MD Via [facility] LAB R LEG WOUND [id number] 09/01/2014 11:00:00 015 00:01:00 DIS Outpatient PRADIP MADISON MD Via [facility] WOUNDCARE [id number] 07/30/2014 05:47:00 015 10:57:00 DIS Inpatient PERLA LEE MD Via [facility] ICU LEFT CAROTID STENOSIS [id number] 07/24/2014 09:28:00 015 23:59:59 CLS Outpatient PERLA LEE MD Via [facility] PREOP LEFT CAROTID STENOSIS [id number] 07/10/2014 11:51:00 015 23:59:59 CLS Outpatient JESSICA MEJIA MD Via [facility] CARD CAD,DM,HYPERLIP ADEMA [id number] 07/03/2014 11:50:00 015 23:59:59 CLS Outpatient JESSICA MEJIA MD Via [facility] CARD CAD,CAROTID ART ASHANTI CALCIFICATION, DM [id number] 06/12/2014 10:44:00 015 23:59:59 CLS Outpatient TAMIKA WHITE DO Via [facility] RAD CAROTID BRUIT,C AD [id number] 06/11/2014 10:38:00 015 23:59:59 CLS Outpatient PRADIP MADISON MD Via [facility] RAD WOUND RT LEG [id number] 01/20/2014 08:32:00 014 11:40:00 DIS Outpatient GE ASCENCIO MD Via [facility] SDC DIARRHEA [id number] 01/16/2014 07:58:00 23:59:59 CLS Outpatient SILVA JONES, GE Casper Via [facility] PREOP DIARRHEA [id number] 09/25/2013 14:15:00 014 14:56:00 DIS Outpatient TAMIKA WHITE DO Via [facility] WOUNDCARE RT LEG ULCER [id number] 09/29/2013 19:15:00 12:00:00 DIS Inpatient ESTELA PATEL MD Via [facility] CSD ACUTE RENAL INSUFFICIEN CY; NEAR SYNCOPAL EVENT [id number] 09/07/2013 11:30:00 12:52:00 DIS Emergency SPENCER COBB DO [facility] ER R LEG WOUND [id number] 11/07/2012 13:26:00 013 15:38:00 DIS Outpatient TAMIKA WHITE DO Via [facility] REHAB STATIS DERMATIT IS, SWELLING OF LEGS [id number] 08/13/2019 12:51:[address] Emergency LIZET LOPEZ MD Via [facility] ER WEAKNESS [id number] 12/18/2014 13:09:[address] Inpatient TAMIKA WHITE DO Via [facility] 4TH ACUTE ON CHRONIC RENAL INSUF FICIENCY UTI [id number] 06/09/2014 08:28:00 Document Registration [id number] 06/09/2014 08:28:00 Document Registration [id number] 06/06/2011 10:02:00 Document Registration [id number] 07/22/2010 15:49:00 Document Registration [id number] 08/12/2009 10:28:00 Document Registration
[2019-08-13 15:39] LABS: BILIRUBIN,URINE NEGATIVE (NEGATIVE); CLARITY,URINE CLEAR; COLOR,URINE YELLOW; GLUCOSE, URINE (UA) NEGATIVE (NEGATIVE); KETONES,URINE NEGATIVE (NEGATIVE); LEUKOCYTE ESTERASE ,URINE NEGATIVE (NEGATIVE); NITRITE,URINE NEGATIVE (NEGATIVE); PROTEIN,URINE 1+ (NEGATIVE)
[2019-08-13 15:48] LABS: BACTERIA,URINE TRACE /HPF; RBC,URINE 0-2 /HPF; SQUAMOUS EPITHELIAL CELL,UR RARE /HPF; WBC,URINE 0-2 /HPF
--- NOTE | 2019-08-13 17:35 | NUR ---
[address] STACY DOWN TO 88 % WHEN TALKING
--- NOTE | 2019-08-13 18:19 | Diagnostic Imaging Report ---
INDICATION: Mental status changes. Time of exam: 6:06 PM Comparison is made with prior chest from 04/01/2019. Heart size is stable. Right hemidiaphragm remains elevated. Lungs appear to be clear. No infiltrates are seen. There is no effusion or pneumothorax. Left upper extremity PICC line appears to have the tip overlying the SVC. IMPRESSION: No acute cardiopulmonary process is detected. Dictated by: Dictated on workstation # [id number]
[2019-08-13] MEDS ORDERED: RT-ALBUTEROL/IPRATROPIUM 3 ML (DUONEB) VIAL ONE (18:21)
--- NOTE | 2019-08-13 18:36 | NUR ---
02 BACK TO 2L PER NC.
[2019-08-13] MEDS ORDERED: NS IV 1000 ML 1,000 ML IV SCH (19:07)
[2019-08-13] MEDS ORDERED: IOHEXOL 350 MG/ML 100 ML (OMNIPAQUE 350) VIAL IV ONE (19:15)
[2019-08-13] MEDS ORDERED: HOLD METFORMIN - RECEIVED CONTRAST 20 ML VIAL IV SCH (19:15)
[2019-08-13] MEDS ORDERED: NS 100 ML (IVPB) BAG IV ONE (19:15)
--- NOTE | 2019-08-13 19:16 | ED General ---
General Chief Complaint: General Problems/Pain Stated Complaint: WEAKNESS Nursing Triage Note: TO ED PER EMS FROM [facility] HAS BEEN TAKING MEDS FOR OSTEOMYELITIS HAS NOT BEEN EATING OR ACTING HIM SELF Nursing Sepsis Screen: No Definite Risk Source of Information: Patient, Caregiver, [facility] Records, Other (Dr. White) Exam Limitations: No Limitations History of Present Illness Date Seen by Provider: Aug 13, 2019 Time Seen by Provider: 12:54 Initial Comments This 74-year-old gentleman presents to the emergency room from [facility] because nursing staff was concerned about his condition. Apparently he was refusing the breakfast or lunch. He also made comments about just wanting to . Patient has not been acting himself today. He has been receiving PICC line IV antibiotic therapy for osteomyelitis. Dr. White requested that he be brought to the emergency room for evaluation. He is afebrile. He denies any chest pain. He reports shortness of breath with exertion only. Patient has been receiving wound care at [place]. Allergies and Home Medications Allergies Coded Allergies: PING Inhibitors (Verified Allergy, Mild, 05/16/15) UNCONTROLLED COUGHING amoxicillin (Verified Allergy, Mild, itching (PT HAS RECEIVED CEFEPIME & ANCEF IN THE PAST), 11/25/15) Home Medications Aspirin 81 Mg Tablet.dr, 81 MG PO DAILY, (Reported) Atorvastatin Calcium 10 Mg Tablet, 10 MG PO HS, (Reported) Clopidogrel Bisulfate 75 Mg Tablet, 75 MG PO DAILY, (Reported) Donepezil HCl 5 Mg Tablet, 5 MG PO HS, (Reported) Famotidine 20 Mg Tablet, 20 MG PO BID, (Reported) Insulin Glargine,Hum.rec.anlog 100 Unit/1 Ml Insuln.pen, 30-40 UNITS SC BID, (Reported) MOST OF THE TIME USES 30MG Ipratropium/Albuterol Sulfate 3 Ml Ampul.neb, 3 ML NEB Q4H PRN for SHORTNESS OF BREATH, (Reported) Memantine HCl 5 Mg Tablet, 5 MG PO DAILY, (Reported) Multivitamin 1 Each Tablet, 1 TAB PO DAILY, (Reported) Sertraline HCl 50 Mg Tablet, 50 MG PO DAILY, (Reported) Patient Home Medication List Home Medication List Reviewed: Yes Review of Systems Review of Systems Constitutional: see HPI, weakness EENTM: no symptoms reported Respiratory: see HPI Cardiovascular: no symptoms reported Gastrointestinal: see HPI Genitourinary: no symptoms reported Musculoskeletal: see HPI Skin: no symptoms reported Psychiatric/Neurological: See HPI Hematologic/Lymphatic: No Symptoms Reported Immunological/Allergic: no symptoms reported Past Kzqinmi-Rmuwow-Vjtmsg Hx Past Med/Social Hx: Reviewed Nursing Past Med/Soc Hx Patient Social History Alcohol Use: Denies Use Recreational Drug Use: No Smoking Status: Never a Smoker 2nd Hand Smoke Exposure: No Recent Foreign Travel: No Contact w/Someone Who Travel: No Recent Infectious Disease Expo: No Recent Hopitalizations: No Immunizations Up To Date Tetanus Booster (TDap): Less than 5yrs PED Vaccines UTD: Yes Seasonal Allergies Seasonal Allergies: No Past Medical History Surgeries: Yes (RIGHT TOTAL KNEE REPLACEMENT) Cardiac, Coronary Stent, Joint Replacement, Orthopedic, Tonsillectomy, Vascular Surgery Respiratory: Yes (HAS CPAP BUT DOESN'T USE IT) Sleep Apnea, COPD Currently Using CPAP: No Currently Using BIPAP: No Cardiac: Yes (STENTS X2) Chronic Edema/Swelling, Coronary Artery Disease, Heart Attack, High Cholesterol, Hypertension, Irregular Heartbeat, Peripheral Vascular Neurological: Yes (POOR MEMORY) Neuropathy Reproductive Disorders: No Sexually Transmitted Disease: No HIV/AIDS: No Genitourinary: No Gastrointestinal: Yes Gastroesophageal Reflux Musculoskeletal: Yes (R TKR, osteomyelitis) Arthritis Endocrine: Yes (MORBID OBESITY) Diabetes, Insulin dep HEENT: No Loss of Vision: Denies Hearing Impairment: Denies, Hard of Hearing Cancer: No Psychosocial: No Integumentary: Yes Blood Disorders: No Adverse Reaction/Blood Tranf: No Family Medical History Reviewed Nursing Family Hx Family history: Arthritis 19 FATHER 19 MOTHER Headache 19 FATHER 19 MOTHER Hearing loss 19 MOTHER History of - anemia 19 MOTHER Stroke 19 FATHER No Family History of: AIDS Abdominal aortic aneurysm Abdominal aortic aneurysm Upper Jay's disease Upper Jay's disease Alcoholism Alzheimer's disease Aphasia Cancer Cancer of colon Cataract Chest pain Congenital heart disease Congestive heart failure Cystic fibrosis Dementia Dysphagia Family history: Allergy Family history: Alzheimer's disease Family history: Asthma Family history: Breast disease Family history: Cardiovascular disease Family history: Coronary thrombosis Family history: Diabetes mellitus Family history: Gastrointestinal disease Family history: Glaucoma Family history: Hypertension Family history: Osteoporosis Family history: Thyroid disorder Heart disease Hereditary disease History of - disorder History of - respiratory disease History of drug abuse Human immunodeficiency virus (HIV) seropositivity Hypercholesterolemia Infertile Kidney disease Malignant neoplasm of lung Myocardial infarction Parkinson's disease Prostate cancer Psychotic disorder Seizure disorder Thyroid disease Tuberculosis Tuberculosis Visual impairment No Pertinent Family Hx Physical Exam Vital Signs Vital Signs - First Documented 08/13/19 08/13/19 12:50 12:56 Temp 36.6 Pulse 75 Resp 18 B/P (MAP) 122/73 (89) Pulse Ox 94 O2 Delivery Room Air O2 Flow Rate 2.00 Capillary Refill : Less Than 3 Seconds Height, Weight, BMI Height: 5'8.00" Weight: 348lbs. 3.0oz. 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 Norm as Tested Skin: Normal Color, Warm/Dry Procedures/Interventions Date of ETT Placement: July 28, 2017 Time of ETT Placement: 1725 Progress/Results/Core Measures Suspected Sepsis Recent Fever Within 48 Hours: No Infection Criteria Present: Documented Infection New/Unexplained Altered Menta: No Sepsis Screen: No Definite Risk SIRS Temperature: Pulse: 75 Respiratory Rate: 18 Laboratory Tests 08/13/19 13:10: White Blood Count 7.9 Blood Pressure 122 /73 Mean: 89 Laboratory Tests 08/13/19 13:10: Creatinine 1.24, Platelet Count 186, Total Bilirubin 0.4 Results/Orders Lab Results Laboratory Tests Test 08/13/19 13:10 08/13/19 15:28 Range/Units White Blood Count 7.9 4.3-11.0 10^3/uL Red Blood Count 3.98 L 4.35-5.85 10^6/uL Hemoglobin 10.7 L 13.3-17.7 G/DL Hematocrit 33 L 40-54 % Mean Corpuscular Volume 84 80-99 FL Mean Corpuscular Hemoglobin 27 25-34 PG Mean Corpuscular Hemoglobin Concent 32 32-36 G/DL Red Cell Distribution Width 16.4 H 10.0-14.5 % Platelet Count 186 130-400 10^3/uL Mean Platelet Volume 10.7 H 7.4-10.4 FL Neutrophils (%) (Auto) 78 H 42-75 % Lymphocytes (%) (Auto) 13 12-44 % Monocytes (%) (Auto) 8 0-12 % Eosinophils (%) (Auto) 1 0-10 % Basophils (%) (Auto) 0 0-10 % Neutrophils # (Auto) 6.2 1.8-7.8 X 10^3 Lymphocytes # (Auto) 1.1 1.0-4.0 X 10^3 Monocytes # (Auto) 0.6 0.0-1.0 X 10^3 Eosinophils # (Auto) 0.1 0.0-0.3 10^3/uL Basophils # (Auto) 0.0 0.0-0.1 10^3/uL D-Dimer 2.51 H 0.00-0.49 UG/ML Sodium Level 134 L 135-145 MMOL/L Potassium Level 4.5 3.6-5.0 MMOL/L Chloride Level 101 98-107 MMOL/L Carbon Dioxide Level 26 21-32 MMOL/L Anion Gap 7 5-14 MMOL/L Blood Urea Nitrogen 17 7-18 MG/DL Creatinine 1.24 0.60-1.30 MG/DL Estimat Glomerular Filtration Rate 57 BUN/Creatinine Ratio 14 Glucose Level 188 H 70-105 MG/DL Calcium Level 8.5 8.5-10.1 MG/DL Corrected Calcium 9.3 8.5-10.1 MG/DL Total Bilirubin 0.4 0.1-1.0 MG/DL Aspartate Amino Transf (AST/SGOT) 26 5-34 U/L Alanine Aminotransferase (ALT/SGPT) 12 0-55 U/L Alkaline Phosphatase 65 40-136 U/L Troponin I < 0.028 <0.028 NG/ML C-Reactive Protein High Sensitivity 1.18 H 0.00-0.50 MG/DL B-Type Natriuretic Peptide 165.6 H <100.0 PG/ML Total Protein 5.8 L 6.4-8.2 GM/DL Albumin 3.0 L 3.2-4.5 GM/DL Urine Color YELLOW Urine Clarity CLEAR Urine pH 6.0 5-9 Urine Specific [place] 1.020 1.016-1.022 Urine Protein 1+ H NEGATIVE Urine Glucose (UA) NEGATIVE NEGATIVE Urine Ketones NEGATIVE NEGATIVE Urine Nitrite NEGATIVE NEGATIVE Urine Bilirubin NEGATIVE NEGATIVE Urine Urobilinogen 0.2 < = 1.0 MG/DL Urine Leukocyte Esterase NEGATIVE NEGATIVE Urine RBC (Auto) TRACE-I NEGATIVE Urine RBC 0-2 /HPF Urine WBC 0-2 /HPF Urine Squamous Epithelial Cells RARE /HPF Urine Crystals NONE /LPF Urine Bacteria TRACE /HPF Urine Casts NONE /LPF Urine Mucus NEGATIVE /LPF Urine Culture Indicated NO My Orders Orders - LIZET LOPEZ MD Cbc With Automated Diff (08/13/19 12:54) Comprehensive Metabolic Panel (08/13/19 12:54) Hs C Reactive Protein (08/13/19 12:54) Ua Culture If Indicated (08/13/19 12:54) Ed Iv/Invasive Line Start (08/13/19 12:54) O2 (08/13/19 12:54) BNP (08/13/19 17:51) Chest 1 View, Ap/Pa Only (08/13/19 17:51) Troponin I (08/13/19 17:54) Albuterol/Ipra Inhalation Soln (Duoneb I (08/13/19 18:21) Fibrin Degradation Products (08/13/19 18:45) Ekg Tracing (08/13/19 18:45) Ct Angio Chest W (08/13/19 19:05) Ns Iv 1000 Ml (Sodium Chloride 0.9%) (08/13/19 19:07) Iohexol Injection (Omnipaque 350 Mg/Ml 1 (08/13/19 19:15) Received Contrast (Hold Metformin- Contr (08/13/19 19:15) Ns (Ivpb) (Sodium Chloride 0.9% Ivpb Bag (08/13/19 19:15) Vital Signs/I&O 08/13/19 08/13/19 08/13/19 08/13/19 12:50 12:56 18:25 19:40 Temp 36.6 36.6 Pulse 75 70 Resp 18 17 B/P (MAP) 122/73 (89) 114/65 (89) Pulse Ox 94 91 97 O2 Delivery Room Air Nasal Cannula Nasal Cannula Nasal Cannula O2 Flow Rate 2.00 1.00 2.00 Capillary Refill : Less Than 3 Seconds Blood Pressure Mean: 89 Progress Note : Time: 19:17 Progress Note Patient was observed for several hours. Nasal cannula oxygen was applied because of intermittent hypoxia and of the upper 80s. DuoNeb treatment was administered without improvement and hypoxia. EKG and troponin were added and were unremarkable for causes of hypoxia. Ultimately d-dimer was added and was elevated. At this time CT angiogram of the chest is pending. Patient has been happy and joking for the most part during his ER stay. I discussed the situation with the staff at [facility] as well as Dr. WHITE. Oxygen is not available after hours at the assisted living facility. Therefore he will need to be admitted for observation overnight. His IV antibiotics are not listed on the medical record. I inquired about them and the fdc reports he receives daptomycin 500 mg daily and ertapenem 1 g daily. These have been added to his bridging orders. ECG Initial ECG Impression Date: Aug 13, 2019 Initial ECG Impression Time: 18:47 Initial ECG Rate: 75 Initial ECG Rhythm: Normal Sinus Initial ECG Impression: Normal Comment Sinus rhythm with no ST elevation or depression. PACs noted. Right bundle branch block. Diagnostic Imaging Diagonstic Imaging: Xray Plain Films/CT/US/NM/MRI: chest Comments NAME: JAYESH LOVE MED REC#: [id number] PT STATUS: REG ER : 1945 PHYSICIAN: LIZET LOPEZ MD ADMIT DATE: 08/13/19/ER Draft Date of Exam:08/13/19 CHEST 1 VIEW, AP/PA ONLY INDICATION: Mental status changes. Time of exam: 6:06 PM Comparison is made with prior chest from 04/01/2019. Heart size is stable. Right hemidiaphragm remains elevated. Lungs appear to be clear. No infiltrates are seen. There is no effusion or pneumothorax. Left upper extremity PICC line appears to have the tip overlying the SVC. IMPRESSION: No acute cardiopulmonary process is detected. Dictated on workstation # [id number] Dict: 08/13/191809 Trans: 08/13/191817 [facility] [id number] Interpreted by: DARIO AGUILAR MD Diagonstic Imaging: CT Plain Films/CT/US/NM/MRI: chest Comments NAME: JAYESH LOVE [facility] REC#: [id number] PT STATUS: ADM Efrem : 1945 PHYSICIAN: LIZET LOPEZ MD ADMIT DATE: 08/13/19 * Signed Date of Exam:08/13/19 CT ANGIO CHEST W PROCEDURE: CT angiography of the chest with contrast. TECHNIQUE: Multiple contiguous axial images were obtained through the chest after uneventful bolus administration of intravenous contrast. 3D reconstructed CTA MIP acquisitions were also performed. Auto Exposure Controls were utilized during the CT exam to meet ALARA standards for radiation dose reduction. INDICATION: Short of air There is right basilar discoid atelectasis. No mass or infiltrate is seen. There is no aortic aneurysm or dissection. There is no pulmonary embolus. IMPRESSION: Right basilar discoid atelectasis. No pulmonary embolus is seen. Dictated by: Dictated on workstation # [id number] Dict: 08/13/191934 Trans: 08/13/191943 [facility] [id number] Interpreted by: MYLES CASTRO MD Electronically signed by: MYLES CASTRO MD 08/13/191943 Departure Communication (Admissions) Time/Spoke to Admitting Phy: 18:40 Dr. Wang Impression Primary Impression: Hypoxia Additional Impressions: Anorexia Osteomyelitis Qualified Codes: M86.9 - Osteomyelitis, unspecified Disposition: ADMITTED INPATIENT Condition: Stable Admissions Decision to Admit Reason: Admit from ER (General) Decision to Admit/Date: Aug 13, 2019 Time/Decision to Admit Time: 18:35 Departure-Patient Inst. Referrals: TAMIKA WHITE DO (PCP/Family) Primary Care Physician LIZET LOPEZ MD Aug 13, 2019 19:16
[2019-08-13] MEDS ORDERED: ONDANSETRON 4 MG (ZOFRAN) ORAL DISSOLVE TAB PO PRN (19:30)
[2019-08-13] MEDS ORDERED: polyethylene glycoL POWDER 17 GM (MIRALAX) PACK PO PRN (19:30)
[2019-08-13] MEDS ORDERED: ANTACID SUSP 30 ML UDC (MYLANTA) PO PRN (19:30)
[2019-08-13] MEDS ORDERED: ACETAMINOPHEN 325 MG TABLET PO PRN (19:30)
[2019-08-13] MEDS ORDERED: ENOXAPARIN 40 MG/0.4 ML (LOVENOX) SYR SC SCH (19:30)
[2019-08-13] MEDS ORDERED: MELATONIN 3 MG TABLET PO PRN (19:30)
[2019-08-13] MEDS ORDERED: ONDANSETRON 4 MG/2 ML (SDV) Z0FRAN IV PRN (19:30)
--- NOTE | 2019-08-13 19:42 | Diagnostic Imaging Report ---
PROCEDURE: CT angiography of the chest with contrast. TECHNIQUE: Multiple contiguous axial images were obtained through the chest after uneventful bolus administration of intravenous contrast. 3D reconstructed CTA MIP acquisitions were also performed. Auto Exposure Controls were utilized during the CT exam to meet ALARA standards for radiation dose reduction. INDICATION: Short of air There is right basilar discoid atelectasis. No mass or infiltrate is seen. There is no aortic aneurysm or dissection. There is no pulmonary embolus. IMPRESSION: Right basilar discoid atelectasis. No pulmonary embolus is seen. Dictated by: Dictated on workstation # [id number]
[2019-08-13] MEDS ORDERED: CATHETER FLUSH 10 ML SYR IV PRN (19:45)
--- NOTE | 2019-08-13 20:00 | NUR ---
JAYESH LOVE admitted to room 426-1, with an admitting diagnosis of HYPOXIA, on 08/13/19 from ED via [facility], accompanied by HOSPITAL STAFF.JAYESH LOVE introduced to surroundings, call light, bed controls, phone, TV, temperature control, lights, meal times, smoking policy, visitor policy, side rail policy, bathrooms and showers. Patient Rights given to patient in the handbook. JAYESH LOVE verbalizes understanding that [facility] is not responsible for the loss or damage to any personal effects or valuables that are kept in the patients posession during their hospitalization. JAYESH LOVE verbalizes understanding of Interdisciplinary Patient Education. Patient and/or family were informed about the Rapid Response Team and its purpose.
[2019-08-13] MEDS ORDERED: RT-ALBUTEROL/IPRATROPIUM 3 ML (DUONEB) VIAL IH PRN (21:15)
[2019-08-13] MEDS ORDERED: oxyCODONE/APAP 5/325MG (PERCOCET 5) TABLET PO PRN (21:30)
[2019-08-13 22:30] VITALS: BP 143/68
[2019-08-13 23:44] VITALS: BP 153/70
[2019-08-14] MEDS: DOCUSATE SODIUM 100 MG (COLACE) CAP PO SCH ×2 (02:43→08:32)
[2019-08-14 04:00] VITALS: BP 145/82
[2019-08-14] MEDS ORDERED: ENOXAPARIN 40 MG/0.4 ML (LOVENOX) SYR SC SCH (06:00)
[2019-08-14] MEDS: inSUlin ASPART (NovoLOG) 1 UNIT/0.01 ML (CHARGE PER UNIT) SC SCH ×3 (06:29→16:23)
[2019-08-14 08:00] VITALS: BP 109/58
[2019-08-14] MEDS ORDERED: ACET-2267 PO (08:29)
[2019-08-14] MEDS ORDERED: MULT-1061 PO (08:29)
[2019-08-14] MEDS ORDERED: METR-145 PO (08:29)
[2019-08-14] MEDS ORDERED: INSU100I10 SC (08:29)
[2019-08-14] MEDS ORDERED: OXYC5TAB96 PO (08:29)
[2019-08-14] MEDS ORDERED: INSU100I14 SQ (08:29)
[2019-08-14] MEDS ORDERED: MINE99OI TP (08:29)
[2019-08-14] MEDS: metroNIDAZOLE 500 MG (FLAGYL) TAB PO SCH ×2 (08:32→14:25)
--- NOTE | 2019-08-14 08:32 | NUR ---
ENTERED THE MED REC USING THE MAR FROM [facility]
[2019-08-14] MEDS ORDERED: DAPTOmycin 500 MG/NS 50 ML IVPB IV SCH ×2 (09:00)
[2019-08-14] MEDS ORDERED: ERTAPENEM 1 GM/NS 50 ML IVPB IV SCH ×2 (09:00)
[2019-08-14] MEDS ORDERED: CLOPIDOGREL 75 MG (PLAVIX) TABLET PO SCH (09:00)
--- NOTE | 2019-08-14 09:00 | NUR ---
PATIENT O2 SATURATIONS 82% ON RA WHILE PATIENT ASLEEP. PATIENT PLACED BACK ON 2L AT THIS TIME AND 02 SATURATIONS NOW 94%.
[2019-08-14 12:00] VITALS: BP 111/56
--- NOTE | 2019-08-14 12:48 | NUR ---
DISCHARGE PLANNING: Went to assist patient to side of bed to standing to assess his needs for transportation to home. I did tell patient I wanted him to do most of the work....so he did, before I was really prepared. He rolled to the side swung legs off, he then used side rail to push himself up to sitting. He was not able however to get himself to a standing position on his own and had a leftward lean took all I could do to keep him from falling. The nurse aide who was helping took the time to clean his bottom and get a clean pad due to incontinent of BM. Patient then sat on the bed and could not help himself scoot back. we assisted him to laying and then assisted him up in bed. Due to the above ambulatory difficulties it is in patients best interest to be transported [facility] back to his home at [facility]. Of NOTE that when we were getting him up his O2 did drop during activity and awake to 81%. Recovered to 95%+ when O2 was replaced. Addendum: 08/14/19 at 1328 by OSVALDO HOLT RN Spoke with facility [facility] where he lives. The nurse indicated that this is patient's previous ability level and that he does not have a wheelchair and ambulates to wherever he needs to go Dr Wang will add PT to his resume [facility] order and then order a wheelchair if they are inclines to pick that up. Addendum: 08/14/19 at 1400 by OSVALDO HOLT RN This RENU has spoke with daughter, Romina who is going to pick him up between 4:30-5 after work. Oxygen and wheelchair to be delivered here by [facility] Addendum: 08/14/19 at 1402 by OSVALDO HOLT RN Patient will resume previous [facility]--unsure of the agency as it was not set up through us
--- NOTE | 2019-08-14 13:27 | Discharge Summary ---
Discharge Summary Hospital Course Was the Problem List Reviewed?: Yes Problems/Dx: (1) Acute respiratory failure with hypoxia Status: Acute Hospital Course Date of Admission: Aug 13, 2019 at 18:53 Admission Diagnosis : Acute respiratory failure with hypoxia Family Physician/Provider: Tamika White DO Date of Discharge: 08/14/19 Discharge Diagnosis: Acute respiratory failure with hypoxia Hospital Course: Teto Cho is a 74-year-old male who was admitted with acute respiratory failure with hypoxia. He was not using any supplemental oxygen before his admission. He underwent a CT scan which was negative for any acute processes including pulmonary embolism. It appeared that he likely has a chronic respiratory failure and will not require chronic supplemental oxygen. He was discharged back to his assisted living facility with home health care for therapies. He should follow-up with Dr. White in about a week. Labs and Pending Lab Test: Laboratory Tests 08/13/19 15:28: Urine Color YELLOW, Urine Clarity CLEAR, Urine pH 6.0, Urine Specific [place] 1.020, Urine Protein 1+H, Urine Glucose (UA) NEGATIVE, Urine Ketones NEGATIVE, Urine Nitrite NEGATIVE, Urine Bilirubin NEGATIVE, Urine Urobilinogen 0.2, Urine Leukocyte Esterase NEGATIVE, Urine RBC (Auto) TRACE-I, Urine RBC 0-2, Urine WBC 0-2, Urine Squamous Epithelial Cells RARE, Urine Crystals NONE, Urine Bacteria TRACE, Urine Casts NONE, Urine Mucus NEGATIVE, Urine Culture Indicated NO 08/14/19 06:21: Glucometer 169H 08/14/19 12:02: Glucometer 229H Home Meds Active Reported Oxycodone IR (Oxycodone HCl) 5 Mg Tablet 5-10 Mg PO Q6H PRN 7 Days Tylenol Extra Strength (Acetaminophen) 500 Mg Tablet 500 Mg PO TID PRN Lantus Solostar (Insulin Glargine,Hum.rec.anlog) 100 Unit/1 Ml Insuln.pen 22 Units SC 0900,1800 Metronidazole 500 Mg Tablet 500 Mg PO TID Novolog Flexpen (Insulin Aspart) 300 Units/3 Ml Solution Units SQ ACHS USES PER SLIDING SCALE: 141-180=2 UNITS 181-220=4 UNITS 221-260=6 UHNITS 261-300=8 UNITS 301-340=10 UNITS 361-400=12 UNITS BLOOD SUGAR GREATER THAN 400 CALL NURSE SO PCP CAN BE NOTIFIED Aquaphor (Petrolatum,White) 99 Gm Oint...g. 1 Applic TP HS APPLY TO BUTTOCKS Centrum Silver Men Tablet (Multivit-Min/FA/Lycopen/Lutein) 1 Each Tablet 1 Each PO DAILY Plavix (Clopidogrel Bisulfate) 75 Mg Tablet 75 Mg PO HS Donepezil HCl 5 Mg Tablet 5 Mg PO HS Namenda (Memantine HCl) 5 Mg Tablet 5 Mg PO DAILY Famotidine 20 Mg Tablet 20 Mg PO BID Sertraline HCl 50 Mg Tablet 50 Mg PO 1400 Iprat-Albut 0.5-3(2.5) mg/3 ml (Ipratropium/Albuterol Sulfate) 3 Ml Ampul.neb 3 Ml NEB Q4H PRN Aspirin EC (Aspirin) 81 Mg Tablet.dr 81 Mg PO 1400 Atorvastatin Calcium 10 Mg Tablet 10 Mg PO HS Assessment/Pt Instructions Take medications as prescribed. Begin using supplemental oxygen at 2 L/m. Follow-up with her primary care physician. Discharge Planning: <30 minutes discharge planning Discharge Instructions Discharge Diet: No Restrictions Activity as Tolerated: Yes Pneumonia Vaccine Order Indica: Yes Discharge Physical Examination Vital Signs Vital Signs Date Time Temp Pulse Resp B/P (MAP) Pulse Ox O2 Delivery O2 Flow Rate FiO2 08/14/19 12:00 36.0 75 20 111/56 (74) 96 Nasal Cannula 3.00 General Appearance: No Apparent Distress, Obese HEENT: PERRL/EOMI, Pharynx Normal Respiratory: Lungs Clear, Normal Breath Sounds, No Respiratory Distress Cardiovascular: Regular Rate, Rhythm, No Murmur Gastrointestinal: Normal Bowel Sounds, Non Tender, Soft Extremity: Normal Inspection, Non Tender, Pedal Edema Skin: Normal Color, Warm/Dry Neurologic/Psychiatric: Alert, No Motor/Sensory Deficits, Normal Mood/Affect Allergies: Coded Allergies: PING Inhibitors (Verified Allergy, Mild, 05/16/15) UNCONTROLLED COUGHING amoxicillin (Verified Allergy, Mild, itching (PT HAS RECEIVED CEFEPIME & ANCEF IN THE PAST), 11/25/15) Copy Copies To 1: TAMIKA WHITE DO Discharge Summary Date of Admission Aug 13, 2019 at 18:53 Date of Discharge Discharge Date: Aug 14, 2019 Discharge Time: 13:25 Admission Diagnosis Acute respiratory failure with hypoxia Discharge Diagnosis (1) Acute respiratory failure with hypoxia Status: Acute Clinical Quality Measures DVT/VTE Risk/Contraindication: Risk Factor Score Per Nursin RFS Level Per Nursing on Admit: 4+=Very High ROBERTO FAUST MD Aug 14, 2019 13:27
--- NOTE | 2019-08-14 13:58 | NUR ---
JAIME/MOODY visited with patient for discharge planning. JAIME/MOODY was assisted by RENU Barrios. Plan: The patient will return to [facility] today 08/13 with transportation from Daughter. He will resume Home Health and have a new oxygen script. Home Health: The patients facility reports [facility] as home health. Resumption orders were put in discharge and faxed to [facility]. DME: The patient uses [facility]. The patient qualified for home o2 at 2L. CM/SS faxed script for oxygen and walker. They will deliver to the hospital. No further needs at this time.
[2019-08-14 16:18] VITALS: BP 145/77
[2019-08-14 18:25] VITALS: BP 145/77
== END 2019-08-14 12:05 | disposition home or self-care (01) ==
LOC: EDUNIT# 12:50 → ER 12:51 → 4TH 18:53 → UNDOADMOB 18:53 → 4TH 20:00 → UNDODISOB 08-14 18:10
PROVIDERS: ADMIT Internal Medicine; ATTEND Internal Medicine
DX: J96.01 Acute respiratory failure with hypoxia (principal); I25.10 Atherosclerotic heart disease of native coronary artery without angina pectoris; I21.4 Non-ST elevation (NSTEMI) myocardial infarction; I10 Essential (primary) hypertension; I48.0 Paroxysmal atrial fibrillation; I47.2 Ventricular tachycardia; I49.3 Ventricular premature depolarization; I65.29 Occlusion and stenosis of unspecified carotid artery; I25.2 Old myocardial infarction; G47.30 Sleep apnea, unspecified; E78.00 Pure hypercholesterolemia, unspecified; K21.9 Gastro-esophageal reflux disease without esophagitis; E78.5 Hyperlipidemia, unspecified; M86.9 Osteomyelitis, unspecified; J44.9 Chronic obstructive pulmonary disease, unspecified; E11.40 Type 2 diabetes mellitus with diabetic neuropathy, unspecified; Z88.8 Allergy status to other drugs, medicaments and biological substances; Z87.891 Personal history of nicotine dependence; Z88.1 Allergy status to other antibiotic agents; Z79.82 Long term (current) use of aspirin; Z79.02 Long term (current) use of antithrombotics/antiplatelets; Z79.4 Long term (current) use of insulin; Z90.89 Acquired absence of other organs; Z82.3 Family history of stroke; Z82.61 Family history of arthritis
CPT/HCPCS: 36415; 71045; 71275; 80053; 81000; 82962; 83880; 84484; 85025; 85379; 86141; 93005; 94640; 94760; 94761; G0378

== ENCOUNTER 2019-09-02 09:27 | Emergency (ER) | payer MEDICARE ==
[~2019-09-02] VITALS: Ht 178 cm; Wt 137.9 kg
[~2019-09-02 09:27] MED LIST changes: +ACET-2267 PO; +INSU100I10 SC; +INSU100I14 SQ; +METR-145 PO; +MINE99OI TP; +MULT-1061 PO; +MULT-567 PO; -MULT1TAB69 PO; +OXYC5TAB96 PO
[2019-09-02 10:49] LABS: BILIRUBIN,URINE NEGATIVE (NEGATIVE); CLARITY,URINE SL CLOUDY; COLOR,URINE YELLOW; GLUCOSE, URINE (UA) NEGATIVE (NEGATIVE); KETONES,URINE NEGATIVE (NEGATIVE); LEUKOCYTE ESTERASE ,URINE NEGATIVE (NEGATIVE); NITRITE,URINE NEGATIVE (NEGATIVE); PROTEIN,URINE 2+ (NEGATIVE)
--- NOTE | 2019-09-02 10:49 | Diagnostic Imaging Report ---
PROCEDURE: CT head and CT cervical spine without contrast. TECHNIQUE: Multiple contiguous axial images were obtained through the brain and cervical spine without the use of intravenous contrast. Sagittal and coronal reformations through the cervical spine were then performed. Auto Exposure Controls were utilized during the CT exam to meet ALARA standards for radiation dose reduction. INDICATION: Slurred speech witnessed fall with supraorbital laceration and bleeding. CT HEAD: Cerebral cortical atrophy and periventricular white matter small vessel sequelae as well as ossifications of the dura and intracranial atherosclerotic vascular calcifications are all unchanged from the comparison study performed 04/01/2019. No abnormal extra-axial fluid collection. There was no focal nor generalized cerebral edema. No evidence for elevated intracranial pressures. No findings of hemorrhage. No calvarial fracture deformity. CT CERVICAL SPINE: Cervical imaging compared with the study of 06/10/2015 Some chronic heterogeneous bony demineralization may be mildly increased from the prior but as a nonacute finding. Vertebral statures are stable. Some chronic endplate irregularities and Schmorl's node deformities across the C6-C7 endplates as well as the C4 superior endplate. Alignment normal. No bony destruction. No fracture. No paravertebral mass, hemorrhage or fluid collection. Carotid vascular calcifications chronic. No change. IMPRESSION: HEAD: Stable chronic senescent findings with no hemorrhage or fracture deformity. CERVICAL SPINE: Chronic findings without fracture or malalignment. Dictated by: Dictated on workstation # [id number]
[2019-09-02 10:53] LABS: BASOPHILS % (AUTO) 0 % (0-10); EOSINOPHILS # (AUTO) 0.2 10^3/uL (0.0-0.3); EOSINOPHILS % (AUTO) 2 % (0-10); HEMATOCRIT 33 % (40-54); HEMOGLOBIN 10.4 G/DL (13.3-17.7); LYMPHOCYTES # (AUTO) 0.8 X 10^3 (1.0-4.0); LYMPHOCYTES % (AUTO) 11 % (12-44); MEAN CORPUSCULAR HEMOGLOBIN 26 PG (25-34); MEAN CORPUSCULAR HGB CONC 31 G/DL (32-36); MEAN CORPUSCULAR VOLUME 84 FL (80-99); MEAN PLATELET VOLUME 10.3 FL (7.4-10.4); MONOCYTES # (AUTO) 0.6 X 10^3 (0.0-1.0); MONOCYTES % (AUTO) 9 % (0-12); NEUTROPHILS # (AUTO) 5.6 X 10^3 (1.8-7.8); NEUTROPHILS % (AUTO) 78 % (42-75); PLATELET COUNT 351 10^3/uL (130-400); RED CELL DISTRIBUTION WIDTH 15.7 % (10.0-14.5); WHITE BLOOD COUNT 7.2 10^3/uL (4.3-11.0)
[2019-09-02 10:58] LABS: ALBUMIN 2.8 GM/DL (3.2-4.5); POTASSIUM 4.7 MMOL/L (3.6-5.0)
[2019-09-02 10:59] LABS: CALCIUM 8.5 MG/DL (8.5-10.1)
[2019-09-02 11:01] LABS: TOTAL PROTEIN 6.1 GM/DL (6.4-8.2)
[2019-09-02 11:01] LABS: AMORPHOUS SEDIMENT,UR FEW AMOR URATES /LPF; BACTERIA,URINE FEW /HPF; RBC,URINE 0-2 /HPF
[2019-09-02 11:04] LABS: CREATININE SERUM 1.24 MG/DL (0.60-1.30)
[2019-09-02 11:07] LABS: MAGNESIUM 1.4 MG/DL (1.6-2.4)
--- NOTE | 2019-09-02 11:31 | ED Trauma-Multisystem ---
General Chief Complaint: Trauma-Non Activation Stated Complaint: FALL Nursing Triage Note: PT TO RM 3 BY [facility] FROM [facility] WITH CC OF A FALL OUT OF BED, SMALL SKIN LAC TO LT FOREHEAD, BLEEDING CONTROLLED. WITNESSED FALL, NO LOC. STAFF STATED SLURRED SPEECH. Source of Information: Patient, EMS, [facility] Records Exam Limitations: Physical Impairments ([facility] staff reports that patient is confused at baseline) History of Present Illness Date Seen by Provider: Sep 02, 2019 Time Seen by Provider: 11:15 Initial Comments 74-year-old male who was brought to the emergency room by [facility] for complaints of falling out of bed this morning. The fall was witnessed by [facility] staff and they deny loss of consciousness. The patient does have a small superficial abrasion to left side of his forehead. prison staff reports that he complained of right shoulder and left hip initially after the fall. He does have confusion at baseline but they report that there was a change in his speech that was concerning. Patient is alert to person and place at this time and speech is clear. Denies any pain at this time. Patient is undergoing IV therapy via PICC line for osteomyelitis of lower extremities. He has Unna boots in place for lower extremity leg wounds. He has an appointment with wound care today. Occurred: This Morning Loss of Consciousness: No Loss of Consciousness Associated Symptoms (Fall): Slurred Speech Allergies and Home Medications Allergies Coded Allergies: PING Inhibitors (Verified Allergy, Mild, 05/16/15) UNCONTROLLED COUGHING amoxicillin (Verified Allergy, Mild, itching (PT HAS RECEIVED CEFEPIME & ANCEF IN THE PAST), 11/25/15) Home Medications Acetaminophen 500 Mg Tablet, 500 MG PO TID PRN for PAIN-MILD (1-4), (Reported) Aspirin 81 Mg Tablet.dr, 81 MG PO 1400, (Reported) Atorvastatin Calcium 10 Mg Tablet, 10 MG PO HS, (Reported) Clopidogrel Bisulfate 75 Mg Tablet, 75 MG PO HS, (Reported) Donepezil HCl 5 Mg Tablet, 5 MG PO HS, (Reported) Famotidine 20 Mg Tablet, 20 MG PO BID, (Reported) Insulin Aspart 300 Units/3 Ml Solution, UNITS SQ ACHS, (Reported) USES PER SLIDING SCALE: 141-180=2 UNITS 181-220=4 UNITS 221-260=6 UHNITS 261- 300=8 UNITS 301-340=10 UNITS 361-400=12 UNITS BLOOD SUGAR GREATER THAN 400 CALL NURSE SO PCP CAN BE NOTIFIED Insulin Glargine,Hum.rec.anlog 100 Unit/1 Ml Insuln.pen, 22 UNITS SC 0900,1800, (Reported) Ipratropium/Albuterol Sulfate 3 Ml Ampul.neb, 3 ML NEB Q4H PRN for SHORTNESS OF BREATH, (Reported) Memantine HCl 5 Mg Tablet, 5 MG PO DAILY, (Reported) Metronidazole 500 Mg Tablet, 500 MG PO TID, (Reported) Multivit-Min/FA/Lycopen/Lutein 1 Each Tablet, 1 EACH PO DAILY, (Reported) Oxycodone HCl 5 Mg Tablet, 5-10 MG PO Q6H PRN for PAIN-SEVERE (8-10), (Reported) Petrolatum,White 99 Gm Oint...g., 1 APPLIC TP HS, (Reported) APPLY TO BUTTOCKS Sertraline HCl 50 Mg Tablet, 50 MG PO 1400, (Reported) Patient Home Medication List Home Medication List Reviewed: Yes Review of Systems Review of Systems Constitutional: see HPI; No chills, No fever Musculoskeletal: other (right shoulder and left hip pain) Skin: see HPI, other (abrasion to left forehead.) All Other Systems Reviewed Negative Unless Noted: Yes Past Jprgdqj-Ixpqzh-Qsryof Hx Patient Social History Alcohol Use: Denies Use Recreational Drug Use: No Smoking Status: Unknown if Ever Smoked 2nd Hand Smoke Exposure: No Recent Foreign Travel: No Contact w/Someone Who Travel: No Recent Infectious Disease Expo: No Recent Hopitalizations: No Physical Abuse: No Sexual Abuse: No Mistreated: No Fear: No Immunizations Up To Date Tetanus Booster (TDap): Less than 5yrs PED Vaccines UTD: Yes Seasonal Allergies Seasonal Allergies: No Past Medical History Surgeries: Yes (RIGHT TOTAL KNEE REPLACEMENT) Cardiac, Coronary Stent, Joint Replacement, Orthopedic, Tonsillectomy, Vascular Surgery Respiratory: Yes (HAS CPAP BUT DOESN'T USE IT) Sleep Apnea, COPD Currently Using CPAP: No Currently Using BIPAP: No Cardiac: Yes (STENTS X2) Chronic Edema/Swelling, Coronary Artery Disease, Heart Attack, High Cholesterol, Hypertension, Irregular Heartbeat, Peripheral Vascular Neurological: Yes (POOR MEMORY) Neuropathy Reproductive Disorders: No Sexually Transmitted Disease: No HIV/AIDS: No Genitourinary: No Gastrointestinal: Yes Gastroesophageal Reflux Musculoskeletal: Yes (R TKR, osteomyelitis) Arthritis Endocrine: Yes (MORBID OBESITY) Diabetes, Insulin dep HEENT: No Loss of Vision: Denies Hearing Impairment: Denies, Hard of Hearing Cancer: No Psychosocial: No Integumentary: Yes Blood Disorders: No Adverse Reaction/Blood Tranf: No Family Medical History Family history: Arthritis 19 FATHER 19 MOTHER Headache 19 FATHER 19 MOTHER Hearing loss 19 MOTHER History of - anemia 19 MOTHER Stroke 19 FATHER No Family History of: AIDS Abdominal aortic aneurysm Abdominal aortic aneurysm Matteson's disease Matteson's disease Alcoholism Alzheimer's disease Aphasia Cancer Cancer of colon Cataract Chest pain Congenital heart disease Congestive heart failure Cystic fibrosis Dementia Dysphagia Family history: Allergy Family history: Alzheimer's disease Family history: Asthma Family history: Breast disease Family history: Cardiovascular disease Family history: Coronary thrombosis Family history: Diabetes mellitus Family history: Gastrointestinal disease Family history: Glaucoma Family history: Hypertension Family history: Osteoporosis Family history: Thyroid disorder Heart disease Hereditary disease History of - disorder History of - respiratory disease History of drug abuse Human immunodeficiency virus (HIV) seropositivity Hypercholesterolemia Infertile Kidney disease Malignant neoplasm of lung Myocardial infarction Parkinson's disease Prostate cancer Psychotic disorder Seizure disorder Thyroid disease Tuberculosis Tuberculosis Visual impairment No Pertinent Family Hx Physical Exam Vital Signs Vital Signs - First Documented 09/02/19 09:34 Temp 37.6 Pulse 90 Resp 16 B/P (MAP) 134/76 (95) Pulse Ox 94 O2 Delivery Nasal Cannula O2 Flow Rate 4.00 Height, Weight, BMI Height: 5'8.00" Weight: 348lbs. 3.0oz. [id number]; 43.00 BMI Method:Stated General Appearance: No Apparent Distress, WD/WN Head: Other (abrasion to left forehead.) Eyes: Bilateral Eye Normal Inspection, Bilateral Eye PERRL, Bilateral Eye EOMI Cardiovascular: Regular Rate, Rhythm, No Edema, No Gallop, No JVD, No Murmur, Normal Peripheral Pulses Respiratory: Chest Non Tender, Lungs Clear, Normal Breath Sounds, No Accessory Muscle Use, No Respiratory Distress Neurologic/Psychiatric: Alert, Other (oriented to person place) Skin: Normal Color, Warm/Dry, Other (abrasion to left forehead) [place] Coma Score Best Eye Response (Elizabeth): (4) Open Spontaneously Best Verbal Response ([place]): (5) Oriented Best Motor Response ([place]): (6) Obeys Commands Elizabeth Total: 15 Procedures/Interventions Date of ETT Placement: July 28, 2017 Time of ETT Placement: 1725 Progress/Results/Core Measures Results/Orders Lab Results Laboratory Tests Test 09/02/19 09:50 09/02/19 10:40 Range/Units White Blood Count 7.2 4.3-11.0 10^3/uL Red Blood Count 3.94 L 4.35-5.85 10^6/uL Hemoglobin 10.4 L 13.3-17.7 G/DL Hematocrit 33 L 40-54 % Mean Corpuscular Volume 84 80-99 FL Mean Corpuscular Hemoglobin 26 25-34 PG Mean Corpuscular Hemoglobin Concent 31 L 32-36 G/DL Red Cell Distribution Width 15.7 H 10.0-14.5 % Platelet Count 351 130-400 10^3/uL Mean Platelet Volume 10.3 7.4-10.4 FL Neutrophils (%) (Auto) 78 H 42-75 % Lymphocytes (%) (Auto) 11 L 12-44 % Monocytes (%) (Auto) 9 0-12 % Eosinophils (%) (Auto) 2 0-10 % Basophils (%) (Auto) 0 0-10 % Neutrophils # (Auto) 5.6 1.8-7.8 X 10^3 Lymphocytes # (Auto) 0.8 L 1.0-4.0 X 10^3 Monocytes # (Auto) 0.6 0.0-1.0 X 10^3 Eosinophils # (Auto) 0.2 0.0-0.3 10^3/uL Basophils # (Auto) 0.0 0.0-0.1 10^3/uL Sodium Level 136 135-145 MMOL/L Potassium Level 4.7 3.6-5.0 MMOL/L Chloride Level 100 98-107 MMOL/L Carbon Dioxide Level 27 21-32 MMOL/L Anion Gap 9 5-14 MMOL/L Blood Urea Nitrogen 20 H 7-18 MG/DL Creatinine 1.24 0.60-1.30 MG/DL Estimat Glomerular Filtration Rate 57 BUN/Creatinine Ratio 16 Glucose Level 183 H 70-105 MG/DL Calcium Level 8.5 8.5-10.1 MG/DL Corrected Calcium 9.5 8.5-10.1 MG/DL Magnesium Level 1.4 L 1.6-2.4 MG/DL Total Bilirubin 1.0 0.1-1.0 MG/DL Aspartate Amino Transf (AST/SGOT) 255 H 5-34 U/L Alanine Aminotransferase (ALT/SGPT) 47 0-55 U/L Alkaline Phosphatase 575 H 40-136 U/L C-Reactive Protein High Sensitivity 5.55 H 0.00-0.50 MG/DL Total Protein 6.1 L 6.4-8.2 GM/DL Albumin 2.8 L 3.2-4.5 GM/DL Urine Color YELLOW Urine Clarity SL CLOUDY Urine pH 6.0 5-9 Urine Specific [place] 1.020 1.016-1.022 Urine Protein 2+ H NEGATIVE Urine Glucose (UA) NEGATIVE NEGATIVE Urine Ketones NEGATIVE NEGATIVE Urine Nitrite NEGATIVE NEGATIVE Urine Bilirubin NEGATIVE NEGATIVE Urine Urobilinogen 0.2 < = 1.0 MG/DL Urine Leukocyte Esterase NEGATIVE NEGATIVE Urine RBC (Auto) TRACE-I NEGATIVE Urine RBC 0-2 /HPF Urine WBC NONE /HPF Urine Squamous Epithelial Cells 5-10 /HPF Urine Crystals PRESENT H /LPF Urine Amorphous Sediment FEW TAJ URATES H /LPF Urine Bacteria FEW H /HPF Urine Casts NONE /LPF Urine Mucus NEGATIVE /LPF Urine Culture Indicated NO My Orders Orders - BRADEN HADDAD Shoulder, Right, 3 Views (09/02/19 11:15) Pelvis With Left Hip 2-3 Views (09/02/19 11:15) Vital Signs/I&O 09/02/19 09:34 Temp 37.6 Pulse 90 Resp 16 B/P (MAP) 134/76 (95) Pulse Ox 94 O2 Delivery Nasal Cannula O2 Flow Rate 4.00 Blood Pressure Mean: 95 Departure Impression Primary Impression: Fall Additional Impressions: Minor head injury without loss of consciousness Abrasion of forehead Disposition: HOME, SELF-CARE Condition: Stable/Unchanged Departure-Patient Inst. Decision time for Depature: 11:55 Referrals: TAMIKA WHITE DO (PCP/Family) Primary Care Physician Patient Instructions: Minor Head Injury, Preventing Falls, Skin Abrasions Add. Discharge Instructions: Follow-up with your primary care provider within 1 week for recheck. Return back to the emergency room for worsening symptoms or concerns as needed. Watch for signs of infection such as increased redness, swelling, drainage, pain. All discharge instructions reviewed with patient and/or family. Voiced understanding. BRADEN HADDAD Sep 02, 2019 11:31
--- NOTE | 2019-09-02 11:51 | Diagnostic Imaging Report ---
INDICATION: Fall with right shoulder injury. TIME OF EXAM: 11:51 AM 3 views of the right shoulder were obtained. Glenohumeral and acromioclavicular alignment are normal. Acromiohumeral space is normal. No fracture or dislocation is identified. IMPRESSION: No acute bony abnormality is detected. Dictated by: Dictated on workstation # [id number]
--- NOTE | 2019-09-02 11:52 | Diagnostic Imaging Report ---
INDICATION: Fall. TIME OF EXAM: 11:46 AM AP view of the pelvis and 2 views of the left hip were obtained. Femoral acetabular alignment is normal bilaterally. Joint spaces appear to be well-maintained. The femoral heads and necks appear to be intact. No fractures are identified. Rami appear intact. Extensive vascular calcifications are noted bilaterally. IMPRESSION: No acute bony abnormality is detected. Dictated by: Dictated on workstation # [id number]
--- NOTE | 2019-09-02 12:21 | NUR ---
Called shift captain at [facility] re: transport back to [facility]. Jg will call [facility] and call this nurse back.
[2019-09-02 13:00] VITALS: BP 132/83
== END 2019-09-02 13:06 ==
LOC: EDUNIT# 09:27 → ER 09:29
DX: S00.81XA Abrasion of other part of head, initial encounter (principal); E11.69 Type 2 diabetes mellitus with other specified complication; M86.9 Osteomyelitis, unspecified; J44.9 Chronic obstructive pulmonary disease, unspecified; G47.30 Sleep apnea, unspecified; E78.00 Pure hypercholesterolemia, unspecified; I10 Essential (primary) hypertension; M25.511 Pain in right shoulder; M25.552 Pain in left hip; W06.XXXA Fall from bed, initial encounter; Z95.5 Presence of coronary angioplasty implant and graft; Z96.651 Presence of right artificial knee joint; Z79.82 Long term (current) use of aspirin; Z79.899 Other long term (current) drug therapy; Z88.8 Allergy status to other drugs, medicaments and biological substances; Z88.1 Allergy status to other antibiotic agents; Z79.4 Long term (current) use of insulin; Y92.092 Bedroom in other non-institutional residence as the place of occurrence of the external cause; E11.51 Type 2 diabetes mellitus with diabetic peripheral angiopathy without gangrene; E11.40 Type 2 diabetes mellitus with diabetic neuropathy, unspecified
CPT/HCPCS: 36415; 51701; 70450; 72125; 73030; 80053; 81000; 83735; 85025; 86141

== ENCOUNTER 2019-10-27 23:39 | Inpatient (IN) | payer MEDICARE ==
[~2019-10-27] VITALS: Ht 182 cm; Wt 129.0 kg
[2019-10-28] VITALS (27 sets, daily range): BP systolic 70–133; BP diastolic 28–104
--- NOTE | 2019-10-28 00:03 | ED General ---
General Chief Complaint: Cardiac/General Problems Stated Complaint: LATHARGIC Source of Information: EMS, Detention Records, Old Records, Other (ALL PMH IS FROM OLD CHART AND SKILLED NURSING PAPERS) Exam Limitations: Other (PT WITH DEMENTIA AND UNABLE TO GIVE ANY INFORMATION) History of Present Illness Date Seen by Provider: Oct 28, 2019 Time Seen by Provider: 23:40 Initial Comments PT ARRIVES VIA EMS FROM [facility] VERY POOR INFORMATION FROM SKILLED NURSING EMS WAS CALLED FOR PT HAVING "LETHARGY" FOR "24 OR 48 HOURS" AND "LOW BLOOD PRESSURE AND LOW O2 SATS" SKILLED NURSING STAFF WERE UNABLE TO STATE WHAT HIS BLOOD PRESSURE OR O2 SATS HAVE BEEN NO ACCUCHECK HAS BEEN DONE BY SKILLED NURSING STAFF ACCUCHECK WAS 64 FOR EMS AND PT WAS GIVEN 1 AMP OF D50, WHICH BROUGHT IT UP TO 83 WAS REPORTED BY SKILLED NURSING STAFF TO EMS THAT PT "HAS BEEN FALLING ASLEEP WHEN EATING, SO HE HAS NOT EATEN" FOR UNKNOWN LENGTH OF TIME O2 SATS WAS IN THE 80'S FOR EMS, PLACED ON O2 VIA NRB AND O2 SATS UP TO 98%--PT IS MOUTH BREATHER AND DID NOT TOLERATE NASAL CANULA NO REPORTED DYSPNEA OR COUGH NO OTHER INFORMATION IS OBTAINABLE PT DOES HAVE HX OF CAD/PVD AND IS ON PLAVIX AND ASPIRIN PT WITH DEMENTIA PT IS DNR/DNI PT ADMITTED 08/12-08/13 FOR HYPOXIA, WITHOUT SPECIFIC CAUSE--IS NOT ON HOME O2 AT SKILLED NURSING PT SEEN HERE IN ER 09/02/19 FOR A FALL OUT OF BED--NO SIGNIFICANT INJURIES. PCP: DR. WHITE Allergies and Home Medications Allergies Coded Allergies: PING Inhibitors (Verified Allergy, Mild, 05/16/15) UNCONTROLLED COUGHING amoxicillin (Verified Allergy, Mild, itching (PT HAS RECEIVED CEFEPIME & ANCEF IN THE PAST), 11/25/15) Home Medications Acetaminophen 500 Mg Tablet, 500 MG PO TID PRN for PAIN-MILD (1-4), (Reported) Aspirin 81 Mg Tablet.dr, 81 MG PO 1400, (Reported) Atorvastatin Calcium 10 Mg Tablet, 10 MG PO HS, (Reported) Clopidogrel Bisulfate 75 Mg Tablet, 75 MG PO HS, (Reported) Donepezil HCl 5 Mg Tablet, 5 MG PO HS, (Reported) Famotidine 20 Mg Tablet, 20 MG PO BID, (Reported) Insulin Aspart 300 Units/3 Ml Solution, UNITS SQ ACHS, (Reported) USES PER SLIDING SCALE: 141-180=2 UNITS 181-220=4 UNITS 221-260=6 UHNITS 261- 300=8 UNITS 301-340=10 UNITS 361-400=12 UNITS BLOOD SUGAR GREATER THAN 400 CALL NURSE SO PCP CAN BE NOTIFIED Insulin Glargine,Hum.rec.anlog 100 Unit/1 Ml Insuln.pen, 22 UNITS SC 0900,1800, (Reported) Ipratropium/Albuterol Sulfate 3 Ml Ampul.neb, 3 ML NEB Q4H PRN for SHORTNESS OF BREATH, (Reported) Memantine HCl 5 Mg Tablet, 5 MG PO DAILY, (Reported) Metronidazole 500 Mg Tablet, 500 MG PO TID, (Reported) Multivit-Min/FA/Lycopen/Lutein 1 Each Tablet, 1 EACH PO DAILY, (Reported) Oxycodone HCl 5 Mg Tablet, 5-10 MG PO Q6H PRN for PAIN-SEVERE (8-10), (Reported) Petrolatum,White 99 Gm Oint...g., 1 APPLIC TP HS, (Reported) APPLY TO BUTTOCKS Sertraline HCl 50 Mg Tablet, 50 MG PO 1400, (Reported) Patient Home Medication List Home Medication List Reviewed: Yes Review of Systems Review of Systems Constitutional: other (UNABLE TO OBTAIN FROM PT) Past [id number] Hx Past Med/Social Hx: Reviewed and Corrections made Patient Social History 2nd Hand Smoke Exposure: No Recent Hopitalizations: No Immunizations Up To Date Tetanus Booster (TDap): Less than 5yrs PED Vaccines UTD: Yes Seasonal Allergies Seasonal Allergies: No Past Medical History Surgeries: Yes Cardiac, CABG, Coronary Stent, Joint Replacement, Orthopedic, Tonsillectomy, Vascular Surgery Respiratory: Yes (HAS CPAP BUT DOESN'T USE IT) Sleep Apnea, COPD Currently Using CPAP: No Currently Using BIPAP: No Cardiac: Yes (STENTS X3; RBBB;SSS/BRADYCARDIA;NO-SUSTAINED V-TACH;CAROTID + PVD) Chronic Edema/Swelling, Coronary Artery Disease, Heart Attack, High Cholesterol, Hypertension, Irregular Heartbeat, Peripheral Vascular Neurological: Yes (PERIPHERAL NEUROPATHY) Dementia, Neuropathy, Stroke Reproductive Disorders: No Sexually Transmitted Disease: No HIV/AIDS: No Genitourinary: Yes Bladder Infection Gastrointestinal: Yes Gastroesophageal Reflux, Gall Bladder Disease Musculoskeletal: Yes (R TKR;OSTEOMYELITIS LEFT LEG;GENERALIZED PAIN/OSTEOARTHRITIS;POOR MOBILITY) Arthritis Endocrine: Yes (MORBID OBESITY) Diabetes, Insulin dep HEENT: Yes Loss of Vision: Denies Hearing Impairment: Denies, Hard of Hearing Cancer: No Psychosocial: Yes Depression Integumentary: Yes (CHRONIC L LOWER LEG WOUND/OSTEOMYELITIS;CHRONIC BILAT LEG WOUNDS ) Blood Disorders: No Adverse Reaction/Blood Tranf: No Family Medical History Family history: Arthritis 19 FATHER 19 MOTHER Headache 19 FATHER 19 MOTHER Hearing loss 19 MOTHER History of - anemia 19 MOTHER Stroke 19 FATHER No Family History of: AIDS Abdominal aortic aneurysm Abdominal aortic aneurysm Kaz's disease Bosque's disease Alcoholism Alzheimer's disease Aphasia Cancer Cancer of colon Cataract Chest pain Congenital heart disease Congestive heart failure Cystic fibrosis Dementia Dysphagia Family history: Allergy Family history: Alzheimer's disease Family history: Asthma Family history: Breast disease Family history: Cardiovascular disease Family history: Coronary thrombosis Family history: Diabetes mellitus Family history: Gastrointestinal disease Family history: Glaucoma Family history: Hypertension Family history: Osteoporosis Family history: Thyroid disorder Heart disease Hereditary disease History of - disorder History of - respiratory disease History of drug abuse Human immunodeficiency virus (HIV) seropositivity Hypercholesterolemia Infertile Kidney disease Malignant neoplasm of lung Myocardial infarction Parkinson's disease Prostate cancer Psychotic disorder Seizure disorder Thyroid disease Tuberculosis Tuberculosis Visual impairment No Pertinent Family Hx PSH: -CARDIAC CATHS--CARDIAC STENTS X 2--LAD 06/2006; DISTAL RCA 12/2009; CATH 12/28/18--HAD IN-STENT STENOSIS OF LAD AND OVERLAPPING STENT TO LAD WAS PLACED; MODERATE TO SEVERE DISEASE IN DISTAL LAD -LEFT CARTID ENDARTERECTOMY 07/2014 -RIGHT TOTAL KNEE REPLACEMENT Physical Exam Vital Signs Vital Signs - First Documented 10/27/19 10/27/19 23:40 23:48 Temp 36.9 Pulse 84 Resp 20 B/P (MAP) 136/109 (118) O2 Delivery Room Air O2 Flow Rate 6.00 Capillary Refill : Height, Weight, BMI Height: 5'8.00" Weight: 348lbs. 3.0oz. 157.002888tv; 43.00 BMI Method:Stated General Appearance: No Apparent Distress, Obese, Other (NO DISTRESS, NO DYSPNEA OR COUGH. DOES APPEAR SOMEWHAT LETHARGIC) Respiratory: Normal Breath Sounds, No Accessory Muscle Use, No Respiratory Distress, Decreased Breath Sounds (IN BASES) Cardiovascular: Regular Rate, Rhythm, No Murmur, Other Gastrointestinal: Non Tender, Soft, Other (OBESE) Extremity: Normal Capillary Refill (FEET WARM AND PINK, BUT UNABLE TO PALPATE PULSES ), Other (LEFT LOWER LEG WITH DRESSING IN PLACE--CLEAN/DRY; EXTENSIVE CHRONIC VENOUS STASIS CHANGES TO RIGHT LOWER LEG, WITH SIGNIFICANT HARD, WOODY INDURATION. UNABLE TO DETERMINE DEGREEE OF LEG EDEMA DUE TO BODY HABITUS AND HARD/WOODY INDURATION ) Neurologic/Psychiatric: Alert, No Motor/Sensory Deficits (MOVES ALL EXTREMITIES, BUT DOES NOT FOLLOW COMMANDS OR ANSWER QUESTIONS APPROPRIATELY), Other (CONSTANT MOVEMENTS OF HANDS AND FEET. ORIENTED TO PERSON. SPEECH IS FAIRLY CLEAR, BUT MOSTLY NON-RELEVANT OR NON-SENSICAL.. TALKING NON-SENSICALLY EVEN WHEN NO ONE IS IN ROOM--TALKING TO NO ONE IN PARTICULAR. ORIENTED TO PERSON ONLY. ) Skin: Normal Color, Warm/Dry Procedures/Interventions Date of ETT Placement: July 28, 2017 Time of ETT Placement: 1725 Progress/Results/Core Measures Suspected Sepsis SIRS Temperature: Pulse: Respiratory Rate: Laboratory Tests 10/28/19 00:08: White Blood Count 11.6H Blood Pressure / Mean: Laboratory Tests 10/28/19 00:08: Creatinine 3.61H, Platelet Count 194, Total Bilirubin 0.5 Results/Orders Lab Results Laboratory Tests Test 10/28/19 00:01 10/28/19 00:08 Range/Units Urine Color YELLOW Urine Clarity CLEAR Urine pH 6.5 5-9 Urine Specific [place] <=1.005 1.016-1.022 Urine Protein TRACE H NEGATIVE Urine Glucose (UA) NEGATIVE NEGATIVE Urine Ketones NEGATIVE NEGATIVE Urine Nitrite NEGATIVE NEGATIVE Urine Bilirubin NEGATIVE NEGATIVE Urine Urobilinogen 0.2 < = 1.0 MG/DL Urine Leukocyte Esterase NEGATIVE NEGATIVE Urine RBC (Auto) NEGATIVE NEGATIVE Urine RBC NONE /HPF Urine WBC NONE /HPF Urine Squamous Epithelial Cells 0-2 /HPF Urine Crystals NONE /LPF Urine Bacteria NEGATIVE /HPF Urine Casts NONE /LPF Urine Mucus SMALL H /LPF Urine Culture Indicated NO White Blood Count 11.6 H 4.3-11.0 10^3/uL Red Blood Count 3.97 L 4.35-5.85 10^6/uL Hemoglobin 10.9 L 13.3-17.7 G/DL Hematocrit 33 L 40-54 % Mean Corpuscular Volume 82 80-99 FL Mean Corpuscular Hemoglobin 28 25-34 PG Mean Corpuscular Hemoglobin Concent 33 32-36 G/DL Red Cell Distribution Width 16.6 H 10.0-14.5 % Platelet Count 194 130-400 10^3/uL Mean Platelet Volume 11.1 H 7.4-10.4 FL Neutrophils (%) (Auto) 86 H 42-75 % Lymphocytes (%) (Auto) 6 L 12-44 % Monocytes (%) (Auto) 8 0-12 % Eosinophils (%) (Auto) 0 0-10 % Basophils (%) (Auto) 0 0-10 % Neutrophils # (Auto) 10.0 H 1.8-7.8 X 10^3 Lymphocytes # (Auto) 0.7 L 1.0-4.0 X 10^3 Monocytes # (Auto) 0.9 0.0-1.0 X 10^3 Eosinophils # (Auto) 0.0 0.0-0.3 10^3/uL Basophils # (Auto) 0.0 0.0-0.1 10^3/uL Sodium Level 129 L 135-145 MMOL/L Potassium Level 6.3 H 3.6-5.0 MMOL/L Chloride Level 94 L 98-107 MMOL/L Carbon Dioxide Level 19 L 21-32 MMOL/L Anion Gap 16 H 5-14 MMOL/L Blood Urea Nitrogen 47 H 7-18 MG/DL Creatinine 3.61 H 0.60-1.30 MG/DL Estimat Glomerular Filtration Rate 17 BUN/Creatinine Ratio 13 Glucose Level 127 H 70-105 MG/DL Calcium Level 8.4 L 8.5-10.1 MG/DL Corrected Calcium 9.1 8.5-10.1 MG/DL Magnesium Level 1.7 1.6-2.4 MG/DL Total Bilirubin 0.5 0.1-1.0 MG/DL Aspartate Amino Transf (AST/SGOT) 2838 H 5-34 U/L Alanine Aminotransferase (ALT/SGPT) 1120 H 0-55 U/L Alkaline Phosphatase 156 H 40-136 U/L Troponin I 11.225 *H <0.028 NG/ML B-Type Natriuretic Peptide 1983.3 H <100.0 PG/ML Total Protein 6.5 6.4-8.2 GM/DL Albumin 3.1 L 3.2-4.5 GM/DL My Orders Orders - SPENCER COBB DO Accucheck Stat ONCE (10/27/19 23:42) Ed Iv/Invasive Line Start (10/27/19 23:42) Ekg Tracing (10/27/19 23:42) O2 (10/27/19 23:42) Monitor-Rhythm Ecg Trace Only (10/27/19 23:42) Cbc With Automated Diff (10/27/19 23:42) Comprehensive Metabolic Panel (10/27/19 23:42) Magnesium (10/27/19 23:42) Ua Culture If Indicated (10/27/19 23:42) Straight Cath For Spec.-Adult (10/27/19 23:55) Chest 1 View, Ap/Pa Only (10/28/19 00:01) BNP (10/28/19 00:39) Troponin I (10/28/19 00:39) Ed Iv/Invasive Line Start (10/28/19 00:52) Ns Iv 1000 Ml (Sodium Chloride 0.9%) (10/28/19 00:52) D50w (Emergency) Syringe (Dextrose 50% 5 (10/28/19 01:00) Insulin (Regular) Human (Novolin R (Per (10/28/19 01:00) Calcium Gluconate 10% Inj (Calcium Glu (10/28/19 01:00) Calcium Gluconate 10% Inj (Calcium Glu (10/28/19 00:57) Ns (Ivpb) (Sodium Chloride 0.9% Ivpb Bag (10/28/19 00:57) Accucheck Stat ONCE (10/28/19 01:06) Catheter(Urinary) Insert & Ass 03,15 (10/28/19 01:06) D50w (Emergency) Syringe (Dextrose 50% 5 (10/28/19 00:57) Insulin (Regular) Human (Novolin R (Per (10/28/19 00:58) Accucheck Stat ONCE (10/28/19 01:56) Medications Given in ED Current Medications Medications Dose Ordered Sig/Arlette Route Start Time Stop Time Status Last Admin Dose Admin Calcium Gluconate 4.65 meq/Sodium Chloride 60 ml @ 120 mls/hr ONCE ONCE IV 10/28/19 01:00 10/28/19 01:29 DC 10/28/19 01:10 120 MLS/HR Dextrose 50 ml ONCE ONCE IV 10/28/19 01:00 10/28/19 01:12 DC 10/28/19 01:13 50 ML Insulin Human Regular 10 unit ONCE ONCE IV 10/28/19 01:00 10/28/19 01:12 DC 10/28/19 01:13 10 UNIT Sodium Chloride 1,000 ml @ 0 mls/hr Q0M ONCE IV 10/28/19 00:52 10/28/19 00:56 DC 10/28/19 01:10 999 MLS/HR Vital Signs/I&O 10/27/19 10/27/19 23:40 23:48 Temp 36.9 Pulse 84 Resp 20 B/P (MAP) 136/109 (118) O2 Delivery Room Air OxyMask O2 Flow Rate 6.00 10/28/19 00:00 Intake Total 100 ml Balance 100 ml Capillary Refill : Point of Care Testing Finger Stick Blood Glucose: 140 Progress Note : Progress Note O2 SAT 83% ON ROOM AIR ON ARRIVAL. PLACED ON OXIMASK WITH IMMEDIATE IMPROVEMENT IN O2 SATS TO UPPER 90'S ACCUCHECK 140 ON ARRIVAL. GIVEN D50 AND INSULIN FOR HYPERKALEMIA. REPEAT ACCUCHECK PRIOR TO GIVING THESE MEDICATIONS--125. ACCUCHECK AFTER INSULIN AND V16--755 NO HYPOTENSION NO DISTRESS, NO COUGH, NO DYSPNEA OR ANY COMPLAINTS DURING ER STAY NO DETERIORATION IN PT'S CONDITION DURING ER STAY ECG Initial ECG Impression Date: Oct 28, 2019 Initial ECG Impression Time: 23:49 Initial ECG Rate: 83 Initial ECG Rhythm: Normal Sinus (RBBB) Initial ECG Comparisson: Unchanged Departure Communication (Admissions) 57--ATTEMPTING TO CONTACT DR. FAUST, HOSPITALIST, MESSAGE LEFT ON CELL PHONE [phone]--SPOKE WITH DR. FAUST, ACCEPTS PT FOR ADMIT. WILL CONSULT CARDIOLOGY IN AM Impression Primary Impression: Acute respiratory failure with hypoxia Additional Impressions: Acute renal failure Acute hepatic failure Hyperkalemia Hyponatremia Elevated troponin Dementia IDDM (insulin dependent diabetes mellitus) CHRONIC LEFT LOWER LEG WOUND HX OF CAD WITH CABG AND CARDIAC STENTS CHRONIC RBBB Disposition: ADMITTED INPATIENT Condition: Improved Admissions Decision to Admit Reason: Admit from ER (General) Decision to Admit/Date: Oct 28, 2019 Time/Decision to Admit Time: 01:00 Departure-Patient Inst. Referrals: TAMIKA WHITE DO (PCP/Family) Primary Care Physician SPENCER COBB DO Oct 28, 2019 00:03
[2019-10-28 00:11] LABS: BILIRUBIN,URINE NEGATIVE (NEGATIVE); CLARITY,URINE CLEAR; COLOR,URINE YELLOW; GLUCOSE, URINE (UA) NEGATIVE (NEGATIVE); KETONES,URINE NEGATIVE (NEGATIVE); LEUKOCYTE ESTERASE ,URINE NEGATIVE (NEGATIVE); NITRITE,URINE NEGATIVE (NEGATIVE); PH,URINE 6.5 (5-9); PROTEIN,URINE TRACE (NEGATIVE)
[2019-10-28 00:18] LABS: BASOPHILS % (AUTO) 0 % (0-10); EOSINOPHILS % (AUTO) 0 % (0-10); HEMATOCRIT 33 % (40-54); HEMOGLOBIN 10.9 G/DL (13.3-17.7); LYMPHOCYTES # (AUTO) 0.7 X 10^3 (1.0-4.0); LYMPHOCYTES % (AUTO) 6 % (12-44); MEAN CORPUSCULAR HEMOGLOBIN 28 PG (25-34); MEAN CORPUSCULAR HGB CONC 33 G/DL (32-36); MEAN CORPUSCULAR VOLUME 82 FL (80-99); MEAN PLATELET VOLUME 11.1 FL (7.4-10.4); MONOCYTES # (AUTO) 0.9 X 10^3 (0.0-1.0); MONOCYTES % (AUTO) 8 % (0-12); NEUTROPHILS % (AUTO) 86 % (42-75); PLATELET COUNT 194 10^3/uL (130-400); RED CELL DISTRIBUTION WIDTH 16.6 % (10.0-14.5); WHITE BLOOD COUNT 11.6 10^3/uL (4.3-11.0)
[2019-10-28 00:22] LABS: BACTERIA,URINE NEGATIVE /HPF; SQUAMOUS EPITHELIAL CELL,UR 0-2 /HPF
[2019-10-28 00:37] LABS: ALBUMIN 3.1 GM/DL (3.2-4.5); BILIRUBIN,TOTAL 0.5 MG/DL (0.1-1.0); CALCIUM 8.4 MG/DL (8.5-10.1); CREATININE SERUM 3.61 MG/DL (0.60-1.30); MAGNESIUM 1.7 MG/DL (1.6-2.4); POTASSIUM 6.3 MMOL/L (3.6-5.0); TOTAL PROTEIN 6.5 GM/DL (6.4-8.2)
--- NOTE | 2019-10-28 00:45 | NUR ---
1L NS STARTED BY EMS COMPLETE AT THIS TIME.
[2019-10-28] MEDS ORDERED: NS IV 1000 ML 1,000 ML IV ONE (00:52)
[2019-10-28] MEDS ORDERED: DEXTROSE 50% 50 ML (IMS) SYR ONE ×2 (00:57→04:14)
[2019-10-28] MEDS ORDERED: CALCIUM GLUC. 10% 4.65 MEQ/10 ML VIAL ONE (00:57)
[2019-10-28] MEDS ORDERED: NS (IVPB) 50 ML ONE (00:57)
[2019-10-28] MEDS ORDERED: inSUlin (REGULAR) HUMAN 1 UNIT/0.01 ML (CHARGE PER UNIT) ONE (00:58)
[2019-10-28] MEDS ORDERED: CALCIUM GLUCONATE 10% INJ 4.65 MEQ in NS (IVPB) 50 ML IV ONE (01:00)
[2019-10-28] MEDS ORDERED: DEXTROSE 50% 50 ML (IMS) SYR IV ONE ×2 (01:00→04:30)
[2019-10-28] MEDS ORDERED: inSUlin (REGULAR) HUMAN 1 UNIT/0.01 ML (CHARGE PER UNIT) IV ONE (01:00)
--- NOTE | 2019-10-28 01:05 | NUR ---
PT ACCIDENTALLY REMOVED IV TO LEFT WRIST. IV CATHETER TIP INTACT.
--- NOTE | 2019-10-28 01:32 | NUR ---
ROOM ASSIGNMENT TO CU5. RN CALLED IN, TO NOTIFY ER WHEN ARRIVES FOR PT REPORT.
[2019-10-28] MEDS ORDERED: SOD POLYSTYRENE 30 GM/120 ML (KAYEXALATE) BULK BOTTLE PR ONE (02:45)
[2019-10-28] MEDS ORDERED: NS IV 1000 ML 1,000 ML IV SCH ×2 (02:45→11:30)
--- NOTE | 2019-10-28 02:50 | NUR ---
GOVIND UPDATED ON PT STATUS Addendum: 10/28/19 at 0358 by SANDRO ROBB RN NOTIFIED OF CRITICAL TROPONIN
[2019-10-28] MEDS ORDERED: SOD POLYSTYRENE 30 GM/120 ML (KAYEXALATE) BULK BOTTLE PO ONE (03:30)
[2019-10-28] MEDS ORDERED: SOD POLYSTERENE 15 GM/60 ML (KAYEXALATE) UNIT DOSE ONE (03:31)
[2019-10-28 03:39] LABS: BASOPHILS % (AUTO) 0 % (0-10); EOSINOPHILS % (AUTO) 0 % (0-10); HEMATOCRIT 31 % (40-54); HEMOGLOBIN 10.3 G/DL (13.3-17.7); LYMPHOCYTES # (AUTO) 1.2 X 10^3 (1.0-4.0); LYMPHOCYTES % (AUTO) 10 % (12-44); MEAN CORPUSCULAR HEMOGLOBIN 27 PG (25-34); MEAN CORPUSCULAR HGB CONC 33 G/DL (32-36); MEAN CORPUSCULAR VOLUME 83 FL (80-99); MEAN PLATELET VOLUME 11.8 FL (7.4-10.4); MONOCYTES # (AUTO) 0.9 X 10^3 (0.0-1.0); MONOCYTES % (AUTO) 7 % (0-12); NEUTROPHILS # (AUTO) 10.3 X 10^3 (1.8-7.8); NEUTROPHILS % (AUTO) 83 % (42-75); PLATELET COUNT 181 10^3/uL (130-400); RED CELL DISTRIBUTION WIDTH 16.7 % (10.0-14.5); WHITE BLOOD COUNT 12.4 10^3/uL (4.3-11.0)
[2019-10-28 03:59] LABS: BILIRUBIN,TOTAL 0.4 MG/DL (0.1-1.0); CALCIUM 8.4 MG/DL (8.5-10.1); CREATININE SERUM 3.58 MG/DL (0.60-1.30); POTASSIUM 5.4 MMOL/L (3.6-5.0); TOTAL PROTEIN 6.3 GM/DL (6.4-8.2)
[2019-10-28] MEDS ORDERED: SOD POLYSTERENE 15 GM/60 ML (KAYEXALATE) UNIT DOSE PO ONE (04:00)
[2019-10-28] MEDS: inSUlin ASPART (NovoLOG) 1 UNIT/0.01 ML (CHARGE PER UNIT) SC SCH ×3 (05:06→16:11)
--- NOTE | 2019-10-28 06:29 | Diagnostic Imaging Report ---
INDICATION: Hypoxia. COMPARISON STUDY: Chest from August 12. FINDINGS: Frontal view of the chest demonstrates stable mild cardiomegaly with elevation of the diaphragm. Calcification is seen in the aorta. Lungs are clear. The vascularity is normal. IMPRESSION: Stable chest. Dictated by: Dictated on workstation # [id number]
[2019-10-28] MEDS ORDERED: inSUlin ASPART (NovoLOG) 1 UNIT/0.01 ML (CHARGE PER UNIT) SC SCH (07:00)
--- NOTE | 2019-10-28 07:14 | NUR ---
DR SHARMA NOTIFIED OF CONSULT
--- NOTE | 2019-10-28 07:20 | NUR ---
NOTIFIED DR HENRY OF CONSULT
--- NOTE | 2019-10-28 08:29 | Consultation-Cardiology ---
HPI-Cardiology Cardiology Consultation: Date of Consultation 10/28/19 Time Seen by a Provider: 08:20 Date of Admission 10-27-2019 Attending Physician Malka Wang MD Admitting Physician Marko Bunch DO Consulting Physician Nestor Reyes MD Primary Blanchard Grinder Operator: Dr. Kamara HPI: Chief Complaint: NSTEMI Mr. Love is a 74 year old male admitted to ICU 5 from the ED. He resides at [facility]. He is not a good historian. He is oriented to self only. He is unable to provide any details as to why he is here. Chart review states EMS was summoned to the LT facility d/t increasing lethargy and not eating for the last several days. He was found to be hypoxic, hypotensive and hypoglycemic by EMS. He is currently in bed. He c/o leg pain. He c/o cough which is productive. Otherwise no c/o. He has a noticeable jerking tremor which he states is nothing new. Review of Systems-Cardiology Review of Systems Other comments The ROS to the extent it could be obtained is as noted in the HPI HPQ-Npdlgm-Lptxtm Hx Patient Social History Alcohol Use: Denies Use Recreational Drug Use: No 2nd Hand Smoke Exposure: No Recent Foreign Travel: No Recent Infectious Disease Expo: No Hospitalization with Isolation: Denies Immunizations Up To Date Tetanus Booster (TDap): Less than 5yrs Past Medical History PMH As described under Assessment. Family Medical History Family Medical History: Per chart review: Family h/o father having a CVA. He is non-contributory d/t dementia. Family History: 19 FATHER Family history: Arthritis Headache Stroke 19 MOTHER Family history: Arthritis Headache Hearing loss History of - anemia Allergies and Home Medications Allergies Coded Allergies: PING Inhibitors (Verified Allergy, Mild, 05/16/15) UNCONTROLLED COUGHING amoxicillin (Verified Allergy, Mild, itching (PT HAS RECEIVED CEFEPIME & ANCEF IN THE PAST), 11/25/15) Home Medications Acetaminophen 500 Mg Tablet, 500 MG PO TID PRN for PAIN-MILD (1-4), (Reported) Aspirin 81 Mg Tablet.dr, 81 MG PO 1400, (Reported) Atorvastatin Calcium 10 Mg Tablet, 10 MG PO HS, (Reported) Clopidogrel Bisulfate 75 Mg Tablet, 75 MG PO HS, (Reported) Donepezil HCl 5 Mg Tablet, 5 MG PO HS, (Reported) Famotidine 20 Mg Tablet, 20 MG PO BID, (Reported) Insulin Aspart 300 Units/3 Ml Solution, UNITS SQ ACHS, (Reported) USES PER SLIDING SCALE: 141-180=2 UNITS 181-220=4 UNITS 221-260=6 UHNITS 261- 300=8 UNITS 301-340=10 UNITS 361-400=12 UNITS BLOOD SUGAR GREATER THAN 400 CALL NURSE SO PCP CAN BE NOTIFIED Insulin Glargine,Hum.rec.anlog 100 Unit/1 Ml Insuln.pen, 22 UNITS SC 0900,1800, (Reported) Ipratropium/Albuterol Sulfate 3 Ml Ampul.neb, 3 ML NEB Q4H PRN for SHORTNESS OF BREATH, (Reported) Memantine HCl 5 Mg Tablet, 5 MG PO DAILY, (Reported) Metronidazole 500 Mg Tablet, 500 MG PO TID, (Reported) Multivit-Min/FA/Lycopen/Lutein 1 Each Tablet, 1 EACH PO DAILY, (Reported) Oxycodone HCl 5 Mg Tablet, 5-10 MG PO Q6H PRN for PAIN-SEVERE (8-10), (Reported) Petrolatum,White 99 Gm Oint...g., 1 APPLIC TP HS, (Reported) APPLY TO BUTTOCKS Sertraline HCl 50 Mg Tablet, 50 MG PO 1400, (Reported) Physical Exam-Cardiology Physical Exam Vital Signs/I&O 10/27/19 10/27/19 10/28/19 10/28/19 23:40 23:48 02:06 02:24 Temp 36.9 36.9 Pulse 84 83 85 Resp 20 18 B/P (MAP) 136/109 (118) 121/89 (118) 111/68 (82) Pulse Ox 92 96 O2 Delivery Room Air OxyMask OxyMask OxyMask O2 Flow Rate 6.00 6.00 6.00 10/28/19 10/28/19 10/28/19 10/28/19 02:25 02:44 02:56 03:00 Pulse 82 80 78 78 Resp 16 22 B/P (MAP) 111/83 92/56 (68) 108/55 (72) Pulse Ox 95 95 95 O2 Delivery OxyMask OxyMask OxyMask O2 Flow Rate 6.00 6.00 6.00 6.00 8/10/28/19 10/28/19 10/28/19 03:00 03:06 03:15 03:59 Temp 36.1 Pulse 75 Resp 17 B/P (MAP) 110/77 (88) Pulse Ox 95 94 O2 Delivery OxyMask OxyMask OxyMask O2 Flow Rate 6.00 6.00 6.00 10/28/19 10/28/19 10/28/19 10/28/19 04:08 04:11 04:20 04:30 Pulse 74 78 80 Resp 32 31 B/P (MAP) 94/48 (63) 92/66 (75) 92/47 (62) Pulse Ox 93 O2 Delivery OxyMask OxyMask OxyMask OxyMask O2 Flow Rate 6.00 5.00 5.00 5.00 10/28/19 10/28/19 10/28/19 10/28/19 05:00 05:30 06:00 06:30 Pulse 78 80 78 78 Resp 24 27 B/P (MAP) 92/55 (67) 96/79 (85) 107/88 (94) 106/84 (91) Pulse Ox 95 92 97 O2 Delivery OxyMask OxyMask OxyMask OxyMask O2 Flow Rate 5.00 5.00 5.00 4.00 10/28/19 10/28/19 10/28/19 06:51 07:45 08:00 Pulse 80 82 Resp 58 B/P (MAP) 93/64 (74) O2 Delivery OxyMask High Flow N/C O2 Flow Rate 4.00 3.00 10/28/19 00:00 Intake Total 100 ml Balance 100 ml Capillary Refill : Less Than 3 Seconds Constitutional: No AAO x 3 (Oriented to self only); well-developed, well-nour ished HEENT: hearing is well preserved Neck: No carotid bruit; carotid pulses are 2 + bilaterally Respiratory: No accessory muscle use, No respiratory distress; chest expansion is symmetric, chest is bilaterally symmetric, other (good air entry) Cardiovascular: irregularly irregular; No JVD; tachycardia, S1 and S2 Gastrointestinal: No tender; soft, round, audible bowel sounds Extremities: other (dressing to LLE which is D&I - not removed), significant edema (Bilt pitting and non-pitting edema) Neurologic/Psychiatric: grossly intact (moves extremities) Skin: No rash on exposed areas Data Review Labs Laboratory Tests 10/28/19 00:01: Urine Color YELLOW, Urine Clarity CLEAR, Urine pH 6.5, Urine Specific [place] <=1.005, Urine Protein TRACEH, Urine Glucose (UA) NEGATIVE, Urine Ketones NEGATIVE, Urine Nitrite NEGATIVE, Urine Bilirubin NEGATIVE, Urine Urobilinogen 0.2, Urine Leukocyte Esterase NEGATIVE, Urine RBC (Auto) NEGATIVE, Urine RBC NONE, Urine WBC NONE, Urine Squamous Epithelial Cells 0-2, Urine Crystals NONE, Urine Bacteria NEGATIVE, Urine Casts NONE, Urine Mucus SMALLH, Urine Culture Indicated NO 10/28/19 00:08: White Blood Count 11.6H, Red Blood Count 3.97L, Hemoglobin 10.9L, Hematocrit 33L , Mean Corpuscular Volume 82, Mean Corpuscular Hemoglobin 28, Mean Corpuscular Hemoglobin Concent 33, Red Cell Distribution Width 16.6H, Platelet Count 194, Mean Platelet Volume 11.1H, Neutrophils (%) (Auto) 86H, Lymphocytes (%) (Auto) 6L, Monocytes (%) (Auto) 8, Eosinophils (%) (Auto) 0, Basophils (%) (Auto) 0, Neutrophils # (Auto) 10.0H, Lymphocytes # (Auto) 0.7L, Monocytes # (Auto) 0.9, Eosinophils # (Auto) 0.0, Basophils # (Auto) 0.0, Sodium Level 129L, Potassium Level 6.3H, Chloride Level 94L, Carbon Dioxide Level 19L, Anion Gap 16H, Blood Urea Nitrogen 47H, Creatinine 3.61H, Estimat Glomerular Filtration Rate 17, BUN/Creatinine Ratio 13, Glucose Level 127H, Calcium Level 8.4L, Corrected Calcium 9.1, Magnesium Level 1.7, Total Bilirubin 0.5, Aspartate Amino Transf (AST/SGOT) 2838H, Alanine Aminotransferase (ALT/SGPT) 1120H, Alkaline Phosphatase 156H, Troponin I 11.225*H, B-Type Natriuretic Peptide 1983.3H, Total Protein 6.5, Albumin 3.1L 10/28/19 03:03: White Blood Count 12.4H, Red Blood Count 3.76L, Hemoglobin 10.3L, Hematocrit 31L , Mean Corpuscular Volume 83, Mean Corpuscular Hemoglobin 27, Mean Corpuscular Hemoglobin Concent 33, Red Cell Distribution Width 16.7H, Platelet Count 181, Mean Platelet Volume 11.8H, Neutrophils (%) (Auto) 83H, Lymphocytes (%) (Auto) 10L, Monocytes (%) (Auto) 7, Eosinophils (%) (Auto) 0, Basophils (%) (Auto) 0, Neutrophils # (Auto) 10.3H, Lymphocytes # (Auto) 1.2, Monocytes # (Auto) 0.9, Eosinophils # (Auto) 0.0, Basophils # (Auto) 0.0, Sodium Level 130L, Potassium Level 5.4H, Chloride Level 98, Carbon Dioxide Level 19L, Anion Gap 13, Blood Urea Nitrogen 48H, Creatinine 3.58H, Estimat Glomerular Filtration Rate 17, BUN/Creatinine Ratio 13, Glucose Level 64L, Calcium Level 8.4L, Corrected Calcium 9.2, Total Bilirubin 0.4, Aspartate Amino Transf (AST/SGOT) 2837H, Alanine Aminotransferase (ALT/SGPT) 1158#H, Alkaline Phosphatase 145H, Total Protein 6.3L, Albumin 3.0L 10/28/19 06:49: Troponin I 10.871*H Radiology NAME: JAYESH LOVE [facility] REC#: [id number] PT STATUS: ADM IN : 1945 PHYSICIAN: SPENCER COBB DO ADMIT DATE: 10/28/19/ICU Draft Date of Exam:10/28/19 CHEST 1 VIEW, AP/PA ONLY INDICATION: Hypoxia. COMPARISON STUDY: Chest from August 12. FINDINGS: Frontal view of the chest demonstrates stable mild cardiomegaly with elevation of the diaphragm. Calcification is seen in the aorta. Lungs are clear. The vascularity is normal. IMPRESSION: Stable chest. Dictated on workstation # [id number] Dict: 10/28/19625 Trans: 10/28/19 0628 [id number] Interpreted by: CRISTI WAN MD Electronically signed by: ECG Impression ECG Comment RBBB A/P-Cardiology Assessment/Admission Diagnosis NSTEMI AMS A-fib with RVR - appears to have PAF Acute resp failure - management per pulmonary/medical services Acute on chronic renal failure - WILFRID likely secondary to hypotension Hypotension Possible sepsis Elevated liver enzymes of undetermined etiology Acute cholecystitis seen at time of hospitalization of Apr 2019 - medical services managing Coronary artery disease, history of a stent done in June 2006 using ultra 4.518 mm bare-metal stent to the LAD, another stent done in December 2009 using Promus 3.012 mm distal right coronary artery. Coronary angiogram done in July 2016 showed patent stent in the coronary system with tgjx-at-aouhnizn disease, occlusion of a small branch of the circumflex artery which is very small artery getting filled by collaterals, underwent cardiac catheterization on December 28, [address] Kamara with severe in-stent restenosis in the LAD underwent stent deployment using Radha 3 x 15 expanded to 3.2 mm overlapping with old stent. Had moderate to severe disease at the distal LAD which is very small artery. Echocardiogram of Jan 03, [address] Kamara showed LVEF 50-55%. Mod calcified mitral valve annulus and leaflets. PASP 15mmHg BLE wounds, recent cellulitis-patient had CTA of abdominal aorta with runoff suggestive of stenosis at the right anterior tibial artery. Peripheral angiogram showed bdhe-jy-usnakqyk disease, slow flow due to small vessel disease. It appears that he has venous stasis ulceration bilaterally. Last angiogram was done in July 2016. NICK's done Dec 2017. Following with wound care in [place]. Syncope/near syncopal episode, severe weakness due to severe bradycardia, improved after discontinuing atenolol and amiodarone. Sick sinus syndrome/sinus pause with escape junctional rhythm with heart rate in the 30s, underlying sinus node dysfunction was present probably exacerbated by atenolol and amiodarone which was stopped. Heart rate improved. Questionable paroxysmal atrial flutter, Holter monitor was done in November 2016 and showed sinus rhythm with 6 beats nonsustained ventricular tachycardia with occasional atrial and ventricular premature contractions. [id number] score of 4, yearly risk of stroke without oral anticoagulation is 4.2 percent, currently not on oral anticoagulation, had not been having any atrial fibrillation. Hypertension Hyperlipidemia Carotid stenosis, status post carotid endarterectomy done by Dr. Pineda in July 2014, most recent carotid duplex February 2018 showing moderate disease on the right, mild disease on the left. Continue to monitor. 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 Gastroesophageal reflux disease Dementia DNR/DNI Discussion and Recomendations Complex management issue NSTEMI WILFRID likely secondary to hypotension Elevated liver enzymes of undetermined etiology A-fib with RVR - start Cardizem gtt Anticoagulation with Lovenox, renal dosing Give BB low dose Increase IVF Spoke with Dr. Ospina of medical services who is speaking with RICKY regarding patient status Monitor lab Further recs will be based on his hospital course Clinical Quality Measures DVT/VTE Risk/Contraindication: Risk Factor Score Per Nursin RFS Level Per Nursing on Admit: 4+=Very High GISELLA GARCIA Oct 28, 2019 08:29
--- NOTE | 2019-10-28 08:32 | Diagnostic Imaging Report ---
INDICATION: Hypoxia, renal and hepatic failure. TECHNIQUE: Single view chest 8:22 AM. CORRELATION STUDY: 10/28/2019 FINDINGS: There is again demonstration of limited depth of ventilation. There is asymmetric limited right diaphragm with right lung volume loss. Stable severity cardiac enlargement. Vasculature is slightly increased. Mildly prominent mediastinum. IMPRESSION: 1. Cardiac enlargement, vasculature appearing slightly increased from prior study. 2. Asymmetric right lung volume loss, atelectasis or infiltrate of the right lung base. Dictated by: Dictated on workstation # [id number]
[2019-10-28] MEDS ORDERED: dilTIAZem DRIP PRE-MIX 125 ML IV ONE (08:42)
[2019-10-28] MEDS ORDERED: meTOprolol 5 MG/5 ML (LOPRESSOR) VIAL IV ONE (09:30)
[2019-10-28] MEDS ORDERED: CLOPIDOGREL 75 MG (PLAVIX) TABLET PO ONE (09:30)
[2019-10-28] MEDS ORDERED: dilTIAZem DRIP PRE-MIX 125 ML IV SCH (09:30)
[2019-10-28] MEDS ORDERED: ENOXAPARIN 300 MG/3 ML (LOVENOX) MULTI-DOSE VIAL SQ SCH (09:30)
[2019-10-28] MEDS ORDERED: ASPIRIN 81 MG CHEW (CHILDREN'S ASA) PO ONE (09:30)
[2019-10-28] MEDS: NS IV 1000 ML 1,000 ML IV SCH ×2 (10:03→16:50)
[2019-10-28] MEDS: ENOXAPARIN 300 MG/3 ML (LOVENOX) MULTI-DOSE VIAL SQ SCH ×2 (10:05→10:06)
--- NOTE | 2019-10-28 10:13 | History & Physical-Hospitalist ---
History of Present Illness HPI/Chief Complaint Pt is a 74yoCM with a PMH of CAD, PVD, HTN, CKD, IDDMII, dementia who presented to the ER due lethargy x3days. This morning he is able to tell me he is in the hospital and was brought her by a car but otherwise does not know why he is here. He denies any complaints at the time and is currently getting an echo. He is unable to provide me any other history. I discussed with his nurse who states his pressure has been soft and he has gotten more tachycardiac since having to lay back for his echo. Source: patient Date Seen 10/28/19 Time Seen by a Provider: 10:08 Attending Physician Malka Wang MD PCP Marko Bunch DO Referring Physician Date of Admission Oct 28, 2019 at 01:00 Home Medications & Allergies Home Medications Reviewed patient Home Medication Reconciliation performed by pharmacy medication reconciliations home service technician and/or nursing. Patients Allergies have been reviewed. Allergies Allergies Coded Allergies PING Inhibitors (Verified Allergy, Mild, 05/16/15) UNCONTROLLED COUGHING amoxicillin (Verified Allergy, Mild, itching (PT HAS RECEIVED CEFEPIME & ANCEF IN THE PAST), 11/25/15) Past Zppvrmw-Ewshgc-Bzuajd Hx Past Med/Social Hx: Reviewed and Corrections made Patient Social History Alcohol Use: Denies Use Recreational Drug Use: No 2nd Hand Smoke Exposure: No Recent Foreign Travel: No Contact w/other who traveled: No Recent Hopitalizations: No Recent Infectious Disease Expo: No Immunizations Up To Date Tetanus Booster (TDap): Less than 5yrs Pediatric: Yes Seasonal Allergies Seasonal Allergies: No Past Medical History Surgeries: Cardiac, CABG, Coronary Stent, Joint Replacement, Orthopedic, Tonsillectomy, Vascular Surgery Respiratory: COPD Currently Using CPAP: No Currently Using BIPAP: No Cardiac: Chronic Edema/Swelling, Coronary Artery Disease, Heart Attack, High Cholesterol, Hypertension, Irregular Heartbeat, Peripheral Vascular Neurological: Dementia, Neuropathy, Stroke Reproductive: No Sexually Transmitted Disease: No HIV/AIDS: No Genitourinary: Bladder Infection Gastrointestinal: Gastroesophageal Reflux, Gall Bladder Disease Musculoskeletal: Arthritis Endocrine: Diabetes, Insulin dep Loss of Vision: Denies Hearing Impairment: Denies, Hard of Hearing Psychosocial: Depression History of Blood Disorders: No Adverse Reaction to Blood [place]: No Family History Family history: Arthritis 19 FATHER 19 MOTHER Headache 19 FATHER 19 MOTHER Hearing loss 19 MOTHER History of - anemia 19 MOTHER Stroke 19 FATHER No Family History of: AIDS Abdominal aortic aneurysm Abdominal aortic aneurysm Lillian's disease Lillian's disease Alcoholism Alzheimer's disease Aphasia Cancer Cancer of colon Cataract Chest pain Congenital heart disease Congestive heart failure Cystic fibrosis Dementia Dysphagia Family history: Allergy Family history: Alzheimer's disease Family history: Asthma Family history: Breast disease Family history: Cardiovascular disease Family history: Coronary thrombosis Family history: Diabetes mellitus Family history: Gastrointestinal disease Family history: Glaucoma Family history: Hypertension Family history: Osteoporosis Family history: Thyroid disorder Heart disease Hereditary disease History of - disorder History of - respiratory disease History of drug abuse Human immunodeficiency virus (HIV) seropositivity Hypercholesterolemia Infertile Kidney disease Malignant neoplasm of lung Myocardial infarction Parkinson's disease Prostate cancer Psychotic disorder Seizure disorder Thyroid disease Tuberculosis Tuberculosis Visual impairment No Pertinent Family Hx PSH: -CARDIAC CATHS--CARDIAC STENTS X 2--LAD 06/2006; DISTAL RCA 12/2009; CATH 12/28/18--HAD IN-STENT STENOSIS OF LAD AND OVERLAPPING STENT TO LAD WAS PLACED; MODERATE TO SEVERE DISEASE IN DISTAL LAD -LEFT CARTID ENDARTERECTOMY 07/2014 -RIGHT TOTAL KNEE REPLACEMENT Review of Systems ROS-Unable to Obtain: due to dementia Constitutional: see HPI Physical Exam Physical Exam Vital Signs Vital Signs - First Documented 10/27/19 10/27/19 10/28/19 23:40 23:48 02:06 Temp 36.9 Pulse 84 Resp 20 B/P (MAP) 136/109 (118) Pulse Ox 92 O2 Delivery Room Air O2 Flow Rate 6.00 Capillary Refill : Less Than 3 Seconds Height, Weight, BMI Height: 5'8.00" Weight: 348lbs. 3.0oz. 157.196638iu; 37.73 BMI Method:Stated General Appearance: No Apparent Distress, Chronically ill, Obese HEENT: PERRL/EOMI, Moist Mucous Membranes; No Scleral Icterus (L), No Scleral Icterus (R) Neck: Normal Inspection, Supple Respiratory: No Accessory Muscle Use, No Respiratory Distress, Decreased Breath Sounds Cardiovascular: No JVD, No Murmur, Irregularly Irregular, Tachycardia Gastrointestinal: Normal Bowel Sounds, Non Tender, Soft Extremity: No Pedal Edema, Other (large wound wrapped in dressing on anterior aspect of LLE, hemosiderin staining noted on both legs) Neurologic/Psychiatric: Alert, Other (oriented to person and place only) Skin: Normal Color, Warm/Dry Results Results/Procedures Labs Laboratory Tests 10/28/19 00:08 10/28/19 03:03 Patient resulted labs reviewed. Imaging: Reviewed Imaging Report Assessment/Plan Admission Diagnosis NSTEMI Admission Status: Inpatient Order (span 2 midnights) Assessment and Plan NSTEMI A-fib with RVR CAD PVD Cardiology consulted, appreciate recs Troponin 11.225 on arrival, trended down to 10.871 Cardizem gtt ordered Lovenox for stroke ppx Echo pending Continue home antiplatelet Very complex case at the moment, discussed with his son who is DPOA at patient's request regarding escalation of care, son to talk with patient regarding goals of care. 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 Son expressed understanding. Acute on Chronic Kidney Disease Hyperkalemia Baseline Creatinine 1.24, up to 3.6 Continue IVF cautiously given elevated BNP Discussed with son regarding goals of care and if necessary if pt would want HD-son to talk with patient if able this afternoon Transaminitis Likely due to hypotension trend IDDMII Has been hypoglycemic so will just treat with SSI for now A1c in March was 6.8 Dementia Appears to be at baseline now after conversation with his son DVT ppx: already on Lovenox for stroke ppx Clinical Quality Measures DVT/VTE Risk/Contraindication: Risk Factor Score Per Nursin RFS Level Per Nursing on Admit: 4+=Very High GEOVANNY JUSTICE MD Oct 28, 2019 10:13
[2019-10-28] MEDS ORDERED: AMIODARONE INJECTION 450 MG in D5W IV SOLUTION (EXCEL) 250 ML IV SCH (10:45)
[2019-10-28] MEDS ORDERED: DIGOXIN 0.25 MG/ML (LANOXIN) 2 ML AMP IV ONE (10:45)
[2019-10-28] MEDS: NOREPINEPHRINE 4 MG/250 ML 250 ML IV SCH ×3 (10:52→18:15)
--- NOTE | 2019-10-28 11:01 | Pulmonary Consultation ---
History of Present Illness History of Present Illness Date Seen by Provider: Oct 28, 2019 Time Seen by Provider: 10:56 Date of Admission Allergies and Home Medications Allergies Coded Allergies: PING Inhibitors (Verified Allergy, Mild, 05/16/15) UNCONTROLLED COUGHING amoxicillin (Verified Allergy, Mild, itching (PT HAS RECEIVED CEFEPIME & ANCEF IN THE PAST), 11/25/15) Home Medications Acetaminophen 500 Mg Tablet, 500 MG PO TID PRN for PAIN-MILD (1-4), (Reported) Aspirin 81 Mg Tablet.dr, 81 MG PO 1400, (Reported) Atorvastatin Calcium 10 Mg Tablet, 10 MG PO HS, (Reported) Clopidogrel Bisulfate 75 Mg Tablet, 75 MG PO HS, (Reported) Donepezil HCl 5 Mg Tablet, 5 MG PO HS, (Reported) Famotidine 20 Mg Tablet, 20 MG PO BID, (Reported) Insulin Aspart 300 Units/3 Ml Solution, UNITS SQ ACHS, (Reported) USES PER SLIDING SCALE: 141-180=2 UNITS 181-220=4 UNITS 221-260=6 UHNITS 261- 300=8 UNITS 301-340=10 UNITS 361-400=12 UNITS BLOOD SUGAR GREATER THAN 400 CALL NURSE SO PCP CAN BE NOTIFIED Insulin Glargine,Hum.rec.anlog 100 Unit/1 Ml Insuln.pen, 22 UNITS SC 0900,1800, (Reported) Ipratropium/Albuterol Sulfate 3 Ml Ampul.neb, 3 ML NEB Q4H PRN for SHORTNESS OF BREATH, (Reported) Memantine HCl 5 Mg Tablet, 5 MG PO DAILY, (Reported) Metronidazole 500 Mg Tablet, 500 MG PO TID, (Reported) Multivit-Min/FA/Lycopen/Lutein 1 Each Tablet, 1 EACH PO DAILY, (Reported) Oxycodone HCl 5 Mg Tablet, 5-10 MG PO Q6H PRN for PAIN-SEVERE (8-10), (Reported) Petrolatum,White 99 Gm Oint...g., 1 APPLIC TP HS, (Reported) APPLY TO BUTTOCKS Sertraline HCl 50 Mg Tablet, 50 MG PO 1400, (Reported) Past Blfeyjm-Rdvbpn-Kvswxc Hx Past Med/Social Hx: Reviewed and Corrections made Patient Social History Alcohol Use: Denies Use Recreational Drug Use: No 2nd Hand Smoke Exposure: No Recent Foreign Travel: No Contact w/Someone Who Travel: No Recent Infectious Disease Expo: No Recent Hopitalizations: No Physical Abuse: No Sexual Abuse: No Mistreated: No Fear: No Immunizations Up To Date Tetanus Booster (TDap): Less than 5yrs PED Vaccines UTD: Yes Seasonal Allergies Seasonal Allergies: No Past Medical History Surgeries: Yes Cardiac, CABG, Coronary Stent, Joint Replacement, Orthopedic, Tonsillectomy, Vascular Surgery Respiratory: Yes (HAS CPAP BUT DOESN'T USE IT) Sleep Apnea, COPD Currently Using CPAP: No Currently Using BIPAP: No Cardiac: Yes (STENTS X3; RBBB;SSS/BRADYCARDIA;NO-SUSTAINED V-TACH;CAROTID + PVD) Chronic Edema/Swelling, Coronary Artery Disease, Heart Attack, High Cholesterol, Hypertension, Irregular Heartbeat, Peripheral Vascular Neurological: Yes (PERIPHERAL NEUROPATHY) Dementia, Neuropathy, Stroke Reproductive Disorders: No Sexually Transmitted Disease: No HIV/AIDS: No Genitourinary: Yes Bladder Infection Gastrointestinal: Yes Gastroesophageal Reflux, Gall Bladder Disease Musculoskeletal: Yes (R TKR;OSTEOMYELITIS LEFT LEG;GENERALIZED PAIN/OSTEOARTHRITIS;POOR MOBILITY) Arthritis Endocrine: Yes (MORBID OBESITY) Diabetes, Insulin dep HEENT: Yes Loss of Vision: Denies Hearing Impairment: Denies, Hard of Hearing Cancer: No Psychosocial: Yes Depression Integumentary: Yes (CHRONIC L LOWER LEG WOUND/OSTEOMYELITIS;CHRONIC BILAT LEG WOUNDS ) Blood Disorders: No Adverse Reaction/Blood Tranf: No Family Medical History Family history: Arthritis 19 FATHER 19 MOTHER Headache 19 FATHER 19 MOTHER Hearing loss 19 MOTHER History of - anemia 19 MOTHER Stroke 19 FATHER No Family History of: AIDS Abdominal aortic aneurysm Abdominal aortic aneurysm Upshur's disease Upshur's disease Alcoholism Alzheimer's disease Aphasia Cancer Cancer of colon Cataract Chest pain Congenital heart disease Congestive heart failure Cystic fibrosis Dementia Dysphagia Family history: Allergy Family history: Alzheimer's disease Family history: Asthma Family history: Breast disease Family history: Cardiovascular disease Family history: Coronary thrombosis Family history: Diabetes mellitus Family history: Gastrointestinal disease Family history: Glaucoma Family history: Hypertension Family history: Osteoporosis Family history: Thyroid disorder Heart disease Hereditary disease History of - disorder History of - respiratory disease History of drug abuse Human immunodeficiency virus (HIV) seropositivity Hypercholesterolemia Infertile Kidney disease Malignant neoplasm of lung Myocardial infarction Parkinson's disease Prostate cancer Psychotic disorder Seizure disorder Thyroid disease Tuberculosis Tuberculosis Visual impairment No Pertinent Family Hx PSH: -CARDIAC CATHS--CARDIAC STENTS X 2--LAD 06/2006; DISTAL RCA 12/2009; CATH 12/28/18--HAD IN-STENT STENOSIS OF LAD AND OVERLAPPING STENT TO LAD WAS PLACED; MODERATE TO SEVERE DISEASE IN DISTAL LAD -LEFT CARTID ENDARTERECTOMY 07/2014 -RIGHT TOTAL KNEE REPLACEMENT Review of Systems Time Seen by Provider: 11:07 Sepsis Event Evaluation Height, Weight, BMI Height: 5'8.00" Weight: 348lbs. 3.0oz. 157.378440qd; 37.73 BMI Method:Stated Exam Exam Vital Signs Date Time Temp Pulse Resp B/P (MAP) Pulse Ox O2 Delivery O2 Flow Rate FiO2 10/28/19 10:52 126 54/33 10/28/19 10:33 94 High Flow N/C 5.00 10/28/19 10:00 140 33 87/51 (63) 92 High Flow N/C 3.00 10/28/19 09:00 140 29 112/104 (107) 99 High Flow N/C 3.00 10/28/19 09:00 97 High Flow N/C 3.00 10/28/19 08:00 High Flow N/C 3.00 10/28/19 08:00 High Flow N/C 3.00 10/28/19 08:00 36.3 85 32 110/74 (86) 100 High Flow N/C 3.00 10/28/19 07:45 82 58 93/64 (74) OxyMask 4.00 10/28/19 06:51 80 10/28/19 06:30 78 27 106/84 (91) 97 OxyMask 4.00 10/28/19 06:00 78 107/88 (94) OxyMask 5.00 10/28/19 05:30 80 96/79 (85) 92 OxyMask 5.00 10/28/19 05:00 78 24 92/55 (67) 95 OxyMask 5.00 10/28/19 04:30 80 31 92/47 (62) OxyMask 5.00 10/28/19 04:20 78 32 92/66 (75) OxyMask 5.00 10/28/19 04:11 OxyMask 5.00 10/28/19 04:08 74 94/48 (63) 93 OxyMask 6.00 10/28/19 03:59 OxyMask 6.00 10/28/19 03:15 75 17 110/77 (88) 94 OxyMask 6.00 10/28/19 03:06 36.1 10/28/19 03:00 95 OxyMask 6.00 10/28/19 03:00 78 108/55 (72) 95 OxyMask 6.00 10/28/19 02:56 78 22 92/56 (68) 95 OxyMask 6.00 10/28/19 02:44 80 16 111/83 95 OxyMask 6.00 6.00 10/28/19 02:25 82 10/28/19 02:24 85 111/68 (82) 96 OxyMask 6.00 10/28/19 02:06 36.9 83 18 121/89 (118) 92 OxyMask 6.00 10/27/19 23:48 OxyMask 6.00 10/27/19 23:40 36.9 84 20 136/109 (118) Room Air I & O 10/28/19 07:00 Intake Total 1280 ml Output Total 250 ml Balance 1030 ml Height & Weight Height: 5'8.00" Weight: 348lbs. 3.0oz. 157.312844zo; 37.73 BMI Method:Stated General Appearance: Chronically ill, Moderate Distress, Obese HEENT: PERRL/EOMI, Moist Mucous Membranes; No Scleral Icterus (L), No Scleral Icterus (R) Neck: Normal Inspection, Supple Respiratory: No Accessory Muscle Use, No Respiratory Distress, Decreased Breath Sounds Cardiovascular: No JVD, No Murmur, Irregularly Irregular, Tachycardia Capillary Refill: Less Than 3 Seconds Extremity: Pedal Edema, Other (large wound wrapped in dressing on anterior aspect of LLE, hemosiderin staining noted on both legs) Neurologic/Psychiatric: Alert, Other (oriented to person and place only) Skin: Normal Color, Warm/Dry Results Lab Laboratory Tests 10/28/19 00:08 10/28/19 03:03 Assessment/Plan Assessment/Plan Shock cardiac vs septic shock -Currently on Levophed -Add solucortef -Check nicole cultures -Start zyvox and cefepime -IVF -Check LA NSTEMI -Cardiology following A-fib with RVR -Currenlty on Ammio CAD PVD Cardiology following Acute on Chronic Kidney Disease Hyperkalemia Monitor Transaminitis Likely due to hypotension trend IDDMII Dementia THU HERNÁNDEZ DO Oct 28, 2019 11:01
--- NOTE | 2019-10-28 11:14 | Consultation-Cardiology ---
HPI-Cardiology Cardiology Consultation: Date of Consultation 10/28/19 Time Seen by a Provider: 09:30 Date of Admission Attending Physician Malka Wang MD Admitting Physician Marko Bunch DO Consulting Physician CINDY HENRY MD, MA, FACP, [facility], [facility] HPI: Chief Complaint: Reason for consultation: Elevated troponin HPI Mr. Cho is a 74 year old male admitted to ICU 5 from the ED. He resides at [facility]. He is not a good historian. He is oriented to self only. He is unable to provide any details as to why he is here. Chart review states EMS was summoned to the [facility] facility d/t increasing lethargy and not eating for the last several days. He was found to be hypoxic, hypotensive and hypoglycemic by EMS. He is currently in bed. He c/o leg pain. He c/o cough which is productive. Otherwise no c/o. He has a noticeable jerking tremor which he states is nothing new. Review of Systems-Cardiology Review of Systems Constitutional: other (He is not able to provide a reliable review of systems. To the extent the history and ROS could be obtained is described above under HPI) IJW-[id number]-[id number] Hx Patient Social History Alcohol Use: Denies Use Recreational Drug Use: No 2nd Hand Smoke Exposure: No Recent Foreign Travel: No Recent Infectious Disease Expo: No Hospitalization with Isolation: Denies Immunizations Up To Date Tetanus Booster (TDap): Less than 5yrs Past Medical History PMH As described under Assessment. Family Medical History Family Medical History: Per chart review: Family h/o father having a CVA. He is non-contributory d/t dementia. Family History: Family history: Arthritis 19 FATHER 19 MOTHER Headache 19 FATHER 19 MOTHER Hearing loss 19 MOTHER History of - anemia 19 MOTHER Stroke 19 FATHER No Family History of: AIDS Abdominal aortic aneurysm Abdominal aortic aneurysm Kaz's disease Comal's disease Alcoholism Alzheimer's disease Aphasia Cancer Cancer of colon Cataract Chest pain Congenital heart disease Congestive heart failure Cystic fibrosis Dementia Dysphagia Family history: Allergy Family history: Alzheimer's disease Family history: Asthma Family history: Breast disease Family history: Cardiovascular disease Family history: Coronary thrombosis Family history: Diabetes mellitus Family history: Gastrointestinal disease Family history: Glaucoma Family history: Hypertension Family history: Osteoporosis Family history: Thyroid disorder Heart disease Hereditary disease History of - disorder History of - respiratory disease History of drug abuse Human immunodeficiency virus (HIV) seropositivity Hypercholesterolemia Infertile Kidney disease Malignant neoplasm of lung Myocardial infarction Parkinson's disease Prostate cancer Psychotic disorder Seizure disorder Thyroid disease Tuberculosis Tuberculosis Visual impairment Allergies and Home Medications Allergies Coded Allergies: PING Inhibitors (Verified Allergy, Mild, 05/16/15) UNCONTROLLED COUGHING amoxicillin (Verified Allergy, Mild, itching (PT HAS RECEIVED CEFEPIME & ANCEF IN THE PAST), 11/25/15) Home Medications Acetaminophen 500 Mg Tablet, 500 MG PO TID PRN for PAIN-MILD (1-4), (Reported) Aspirin 81 Mg Tablet.dr, 81 MG PO 1400, (Reported) Atorvastatin Calcium 10 Mg Tablet, 10 MG PO HS, (Reported) Clopidogrel Bisulfate 75 Mg Tablet, 75 MG PO HS, (Reported) Donepezil HCl 5 Mg Tablet, 5 MG PO HS, (Reported) Famotidine 20 Mg Tablet, 20 MG PO BID, (Reported) Insulin Aspart 300 Units/3 Ml Solution, UNITS SQ ACHS, (Reported) USES PER SLIDING SCALE: 141-180=2 UNITS 181-220=4 UNITS 221-260=6 UHNITS 261- 300=8 UNITS 301-340=10 UNITS 361-400=12 UNITS BLOOD SUGAR GREATER THAN 400 CALL NURSE SO PCP CAN BE NOTIFIED Insulin Glargine,Hum.rec.anlog 100 Unit/1 Ml Insuln.pen, 22 UNITS SC 0900,1800, (Reported) Ipratropium/Albuterol Sulfate 3 Ml Ampul.neb, 3 ML NEB Q4H PRN for SHORTNESS OF BREATH, (Reported) Memantine HCl 5 Mg Tablet, 5 MG PO DAILY, (Reported) Metronidazole 500 Mg Tablet, 500 MG PO TID, (Reported) Multivit-Min/FA/Lycopen/Lutein 1 Each Tablet, 1 EACH PO DAILY, (Reported) Oxycodone HCl 5 Mg Tablet, 5-10 MG PO Q6H PRN for PAIN-SEVERE (8-10), (Reported) Petrolatum,White 99 Gm Oint...g., 1 APPLIC TP HS, (Reported) APPLY TO BUTTOCKS Sertraline HCl 50 Mg Tablet, 50 MG PO 1400, (Reported) Patient Home Medication List Home Medication List Reviewed: Yes Physical Exam-Cardiology Physical Exam Vital Signs/I&O 8/23/20 8/23/20 8/24/20 8/24/20 23:40 23:48 02:06 02:24 Temp 36.9 36.9 Pulse 84 83 85 Resp 20 18 B/P (MAP) 136/109 (118) 121/89 (118) 111/68 (82) Pulse Ox 92 96 O2 Delivery Room Air OxyMask OxyMask OxyMask O2 Flow Rate 6.00 6.00 6.00 10/28/19 10/28/19 10/28/19 10/28/19 02:25 02:44 02:56 03:00 Pulse 82 80 78 78 Resp 16 22 B/P (MAP) 111/83 92/56 (68) 108/55 (72) Pulse Ox 95 95 95 O2 Delivery OxyMask OxyMask OxyMask O2 Flow Rate 6.00 6.00 6.00 6.00 10/28/19 10/28/19 10/28/19 10/28/19 03:00 03:06 03:15 03:59 Temp 36.1 Pulse 75 Resp 17 B/P (MAP) 110/77 (88) Pulse Ox 95 94 O2 Delivery OxyMask OxyMask OxyMask O2 Flow Rate 6.00 6.00 6.00 10/28/19 10/28/19 10/28/19 10/28/19 04:08 04:11 04:20 04:30 Pulse 74 78 80 Resp 32 31 B/P (MAP) 94/48 (63) 92/66 (75) 92/47 (62) Pulse Ox 93 O2 Delivery OxyMask OxyMask OxyMask OxyMask O2 Flow Rate 6.00 5.00 5.00 5.00 10/28/19 10/28/19 10/28/19 10/28/19 05:00 05:30 06:00 06:30 Pulse 78 80 78 78 Resp 24 27 B/P (MAP) 92/55 (67) 96/79 (85) 107/88 (94) 106/84 (91) Pulse Ox 95 92 97 O2 Delivery OxyMask OxyMask OxyMask OxyMask O2 Flow Rate 5.00 5.00 5.00 4.00 10/28/19 10/28/19 10/28/19 10/28/19 06:51 07:45 08:00 08:00 Temp 36.3 Pulse 80 82 85 Resp 58 32 B/P (MAP) 93/64 (74) 110/74 (86) Pulse Ox 100 O2 Delivery OxyMask High Flow N/C High Flow N/C O2 Flow Rate 4.00 3.00 3.00 10/28/19 10/28/19 10/28/19 10/28/19 08:00 09:00 09:00 10:00 Pulse 140 140 Resp 29 33 B/P (MAP) 112/104 (107) 87/51 (63) Pulse Ox 97 99 92 O2 Delivery High Flow N/C High Flow N/C High Flow N/C High Flow N/C O2 Flow Rate 3.00 3.00 3.00 3.00 10/28/19 10/28/19 10:33 10:52 Pulse 126 B/P (MAP) 54/33 Pulse Ox 94 O2 Delivery High Flow N/C O2 Flow Rate 5.00 10/28/19 00:00 Intake Total 100 ml Balance 100 ml Capillary Refill : Less Than 3 Seconds Constitutional: No AAO x 3 (Oriented to self only); well-developed, well-nourished HEENT: hearing is well preserved Neck: No carotid bruit; carotid pulses are 2 + bilaterally Respiratory: No accessory muscle use, No respiratory distress; chest expansion is symmetric, chest is bilaterally symmetric, other (good air entry) Cardiovascular: irregularly irregular; No JVD; tachycardia, S1 and S2 Gastrointestinal: No tender; soft, round, audible bowel sounds Extremities: other (dressing to LLE which is D&I - not removed), significant edema (Bilt pitting and non-pitting edema) Neurologic/Psychiatric: grossly intact (moves extremities) Skin: No rash on exposed areas; other (reddish-brown discoloration of the legs, consistent with stasis dermatitis) Data Review Labs Laboratory Tests 10/27/19 23:49: Glucometer 140H 10/28/19 00:01: Urine Color YELLOW, Urine Clarity CLEAR, Urine pH 6.5, Urine Specific [place] <=1.005, Urine Protein TRACEH, Urine Glucose (UA) NEGATIVE, Urine Ketones NEGATIVE, Urine Nitrite NEGATIVE, Urine Bilirubin NEGATIVE, Urine Urobilinogen 0.2, Urine Leukocyte Esterase NEGATIVE, Urine RBC (Auto) NEGATIVE, Urine RBC NONE, Urine WBC NONE, Urine Squamous Epithelial Cells 0-2, Urine Crystals NONE, Urine Bacteria NEGATIVE, Urine Casts NONE, Urine Mucus SMALLH, Urine Culture Indicated NO 10/28/19 00:08: White Blood Count 11.6H, Red Blood Count 3.97L, Hemoglobin 10.9L, Hematocrit 33L , Mean Corpuscular Volume 82, Mean Corpuscular Hemoglobin 28, Mean Corpuscular Hemoglobin Concent 33, Red Cell Distribution Width 16.6H, Platelet Count 194, Mean Platelet Volume 11.1H, Neutrophils (%) (Auto) 86H, Lymphocytes (%) (Auto) 6L, Monocytes (%) (Auto) 8, Eosinophils (%) (Auto) 0, Basophils (%) (Auto) 0, Neutrophils # (Auto) 10.0H, Lymphocytes # (Auto) 0.7L, Monocytes # (Auto) 0.9, Eosinophils # (Auto) 0.0, Basophils # (Auto) 0.0, Sodium Level 129L, Potassium Level 6.3H, Chloride Level 94L, Carbon Dioxide Level 19L, Anion Gap 16H, Blood Urea Nitrogen 47H, Creatinine 3.61H, Estimat Glomerular Filtration Rate 17, BUN/Creatinine Ratio 13, Glucose Level 127H, Calcium Level 8.4L, Corrected Calcium 9.1, Magnesium Level 1.7, Total Bilirubin 0.5, Aspartate Amino Transf (AST/SGOT) 2838H, Alanine Aminotransferase (ALT/SGPT) 1120H, Alkaline Phosphatase 156H, Troponin I 11.225*H, B-Type Natriuretic Peptide 1983.3H, Total Protein 6.5, Albumin 3.1L 10/28/19 01:08: Glucometer 125H 10/28/19 01:56: Glucometer 146H 10/28/19 03:03: White Blood Count 12.4H, Red Blood Count 3.76L, Hemoglobin 10.3L, Hematocrit 31L , Mean Corpuscular Volume 83, Mean Corpuscular Hemoglobin 27, Mean Corpuscular Hemoglobin Concent 33, Red Cell Distribution Width 16.7H, Platelet Count 181, Mean Platelet Volume 11.8H, Neutrophils (%) (Auto) 83H, Lymphocytes (%) (Auto) 10L, Monocytes (%) (Auto) 7, Eosinophils (%) (Auto) 0, Basophils (%) (Auto) 0, Neutrophils # (Auto) 10.3H, Lymphocytes # (Auto) 1.2, Monocytes # (Auto) 0.9, Eosinophils # (Auto) 0.0, Basophils # (Auto) 0.0, Sodium Level 130L, Potassium L evel 5.4H, Chloride Level 98, Carbon Dioxide Level 19L, Anion Gap 13, Blood Urea Nitrogen 48H, Creatinine 3.58H, Estimat Glomerular Filtration Rate 17, BUN/Creatinine Ratio 13, Glucose Level 64L, Calcium Level 8.4L, Corrected Calcium 9.2, Total Bilirubin 0.4, Aspartate Amino Transf (AST/SGOT) 2837H, Alanine Aminotransferase (ALT/SGPT) 1158#H, Alkaline Phosphatase 145H, Total Protein 6.3L, Albumin 3.0L 10/28/19 05:05: Glucometer 182H 10/28/19 06:49: Troponin I 10.871*H Laboratory Tests 10/28/19 00:08 10/28/19 03:03 A/P-Cardiology Assessment/Admission Diagnosis Shock of undetermined etiology. Cardiac etiology appears less likely because EF well preserved on echo today. Consider septic shock Elevated troponin, likely due to shock (type 2 ND) Acute on chronic renal failure - WILFRID likely due to shock Ac hepatic injury, likely due to shock AMS, likely due to shock PAF with RVR. Was in NSR earlier today Echo on 10/28/19: Poor study, LVEF prob 50-55%, R heart enlargement, mod , RVSP 27 mmHg Coronary artery disease: in June 2006, 4.518 mm bare-metal stent to the LAD; in December 2009, Promus 3.012 mm distal right coronary artery. Last cardiac catheterization on December 28, [address] Kamara with severe in-stent restenosis in the LAD for which he underwent stent deployment using Radha 3 x 15 expanded to 3.2 mm overlapping with old stent. Had moderate to severe disease at the distal LAD which is very small artery. H/o bilat leg wound for which he follows with wound care. Peripheral angiogram in July 2016 showed [id number]-[id number] disease. It appears that he has venous stasis ulceration bilaterally H/o sinus node dysfunction. Has not tolerated amiodarone and beta-kim well in the past (bradycardia) H/o hypertension and hyperlipidemia H/o CEA done by Dr. Pineda in July 2014; most recent carotid duplex February 2018 showing moderate disease on the right, mild disease on the left Diabetes mellitus II Obesity, BMI is 39 Dementia H/o DNR/DNI Discussion and Recomendations Complex management I spoke with Dr Ospina on the phone. Mr Marquis has multisystem involvement and prognosis does not appear good. Family is considering treatment and resuscitation options. Meanwhile, we will treat fully. Dr Ospina managing renal and hepatic failure iv fluids and Levophed for hypotension iv amiodarone to control PAF (has had onset in the last less than 24 hours) Stroke prophylaxis with enoxaparin (adjusted to renal function) Not suitable at this time for BB or CCB (bp too low). Will use very low dose dig (low dose because of renal failure) Complex management issue Clinical Quality Measures DVT/VTE Risk/Contraindication: Risk Factor Score Per Nursin RFS Level Per Nursing on Admit: 4+=Very High CINDY HENRY MD FACP FAC CCDS Oct 28, 2019 11:14
[2019-10-28] MEDS ORDERED: SULF1TAB35 PO (11:31)
[2019-10-28] MEDS ORDERED: NYST15PO2 TP (11:31)
[2019-10-28] MEDS ORDERED: MEMA10TA57 PO (11:31)
[2019-10-28] MEDS ORDERED: MENT71OI TP (11:31)
--- NOTE | 2019-10-28 11:34 | NUR ---
MED REC HAS BEEN ENTERED USING THE ORDER REPORT FROM [email or web address]
--- NOTE | 2019-10-28 11:36 | Diagnostic Imaging Report ---
INDICATION: Line placement. TECHNIQUE: Single view chest 11:32 AM. CORRELATION STUDY: 10/28/2019 FINDINGS: A right-sided central line has been placed. Tip appears to be at the high right atrium. Unchanged cardiac enlargement, prominent mediastinum. Vasculature overall remains prominent. Unchanged elevated right diaphragm with atelectasis or infiltrate at the right infrahilar region. IMPRESSION: 1. Right-sided central line has been placed, tip projecting over the high right atrium. 2. Cardiac enlargement with underlying pulmonary vascular congestion. 3. Somewhat prominent appearance about the mediastinum. May be accentuated by technique but does warrant followup evaluation. Dictated by: Dictated on workstation # [id number]
[2019-10-28] MEDS ORDERED: LINEZOLID IVPB 300 ML IV SCH (11:47)
--- NOTE | 2019-10-28 11:49 | NUR ---
RECEIVED REPORT FOR PICC PLACEMENT. PICC LINE SHOULD BE PULLED BACK 2 1/2 -3 CM PER RADIOLOGIST. NO REPEAT CXR NEEDED.
[2019-10-28] MEDS ORDERED: CEFEPIME INJECTION 1,000 MG in WATER (STERILE) FOR INJECTION 10 ML IV SCH (12:00)
--- NOTE | 2019-10-28 12:05 | NUR ---
PICC LINE PULLED BACK 3CM AND STERILE DRESSING APPLIED. RN NOTIFIED PICC OK TO USE.
--- NOTE | 2019-10-28 12:07 | NUR ---
PALLIATIVE CARE RN in to see patient. He is working his arms as if he were driving a car. when he responds he says he was instead "mowing the lawn". Starts mumbling something that I cannot understand. Will continue to see patient and assist in discharge planning as needed.
[2019-10-28] MEDS ORDERED: LACTATED RINGERS 1,000 ML IV ONE ×3 (12:31→16:44)
[2019-10-28] MEDS: meTOprolol 5 MG/5 ML (LOPRESSOR) VIAL IV SCH ×2 (12:40→17:35)
[2019-10-28] MEDS ORDERED: LACTATED RINGERS 1,000 ML IV SCH ×2 (12:45→16:45)
--- NOTE | 2019-10-28 12:52 | Physician Query Clarification ---
PQ-Conflicting Diagnosis Admission/Discharge Admission Date: Oct 28, 2019 at 01:00 Discharge Date: Dr. Ospina, The medical record reflects the following clinical scenario: History/Risk Factors: Hypoxia COPD Type II myocardial infarction per Dr. Reyes. Clinical Findings:T 36.9, P 84, R 20, BP 136/109 02 sats 83% on arrival to ED. Treatment: OxyMask 6 liters 02. Question: Do you agree with the impression of the Acute respiratory failure with hypoxia per Dr. Watkins, ED physician. Please document a response in Progress Note or Discharge Summary. 1. Yes 2. No 3. Other, with explanation of clinical findings 4. Clinically undetermined, no explanation for clinical findings. PHYSICIAN RESPONSE Do you agree w/Consulting Dx?: Yes Please remember a lack of response to the above will prompt a phone page by CDI/Coding staff. In responding to this query, please exercise your independent professional judgment. The purpose of this communication is to more accurately reflect the complexity of your patients condition. The fact that a question is asked does not imply that any particular answer is desired or expected. Thank you for your timely response to this clarification. Requestors name: Ml Vega [facility] Phone # ext [phone] or [phone] THIS PHYSICIAN QUERY FORM IS A PERMANENT PART OF THE MEDICAL RECORD ML VEGA Oct 28, 2019 12:52 GEOVANNY OSPINA MD Oct 28, 2019 19:56
--- NOTE | 2019-10-28 13:07 | Physician Query Clarification ---
PQ-Further Specificity Admission/Discharge Admission Date: Oct 28, 2019 at 01:00 Discharge Date: Dr. Ospina, The medical record reflects the following clinical scenario: History/Risk Factors: Shock documented by Dr. Reyes and Dr. 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 Acute kidney injury and acute hepatic injury and altered mental status likely due to shock per Dr. Reyes. Treatment:IV fluids and Levophed for hypotension, Solucortef, Zyvox and Cefepime. Dr. López-Shock cardiac vs septic shock. Dr. Reyes- Shock of undetermined etiology. Cardiac etiology appears less likely because ejection fraction well preserved on echo today. Consider septic shock. Question: Can you further specify Shock per the clinical indicators above? Please document a response in the Progress Notes or Discharge Summary. 1. Sepsis with septic shock. 2. Cardiogenic shock. 3. Other, with explanation of the clinical findings. 4. Clinically undetermined, no explanation for the clinical findings. PHYSICIAN RESPONSE Can you specify per above: 2 Please remember a lack of response to the above will prompt a phone page by CDI/Coding staff. In responding to this query, please exercise your independent professional judgment. The purpose of this communication is to more accurately reflect the complexity of your patients condition. The fact that a question is asked does not imply that any particular answer is desired or expected. Thank you for your timely response to this clarification. Requestors name: Ml Vega [facility] Phone # ext [phone] or [phone] THIS PHYSICIAN QUERY FORM IS A PERMANENT PART OF THE MEDICAL RECORD ML VEGA Oct 28, 2019 13:07 GEOVANNY OSPINA MD Oct 28, 2019 19:57
[2019-10-28] MEDS ORDERED: HYDROCORTISONE 100 MG/2 ML (Solu-CORTEF) VIAL IV SCH (14:00)
--- NOTE | 2019-10-28 14:50 | NUR ---
"RD ASSESSMENT PMHx: CAD; PVD; HTN; CKD; DM; dementia; COPD; hypercholesterolemia; stroke; GERD PT INTERACTION: Note pt has dementia, per chart review. Note all diet information is per chart review. Note avg PO intake <25% x2meal. Note no BM has been recorded, and pt not currently on bowel regimen. Note recent 20# wt loss x2mon. Note unable to determine current level of DM management, and note recent HbA1c of 6.8 (taken 04/02/19). ABNORMAL NUTRITION-RELATED LAB VALUES LOW: Na 130; glu 64; Ca 8.4; Pro 6.3; alb 3.0 HIGH: K 5.4; BUN 48; cr 3.58; AST 2837; ALT 1158; alkphos 145 Est. kcal needs: 1925 kcal | 15 kcal/kg Est. Pro needs: 130 g Pro | 0.8 g Pro/kg PES STATEMENT: Inadequate oral intake (NI-2.1) related to loss of appetite as evidenced by chart review | avg PO intake <25% x2meal INTERVENTION: Continue with current diet order of CHO 45g/m 0snack diet. Continue with current supplementation order of Ensure Enlive (vary) with meals TID, for increased kcal intake. Provides 350 kcal and 13 g Pro per serving. Did not offer diet education at this time due to pt's dementia. Will attempt to offer education when family is present prior to discharge. Will continue to follow and reassess as pt needs, intake, and status change. MONITOR/EVALUATE: PO Intake; Plan of Care; Hydration Status; Weight Status; Lab Values Adrianna Anaya, MS, RD, LD"
[2019-10-28] MEDS ORDERED: ATROPINE 1% OPHTHALMIC SOLN 2 ML SL PRN (18:15)
[2019-10-28] MEDS ORDERED: BISACODYL 10 MG SUPP (DULCOLAX) PR PRN (18:15)
[2019-10-28] MEDS ORDERED: morphine (ROXINOL) 10 MG/0.5 ML oral conc 0.5 ML PO PRN (18:15)
[2019-10-28] MEDS ORDERED: SCOPOLAMINE 1.5 MG (TRANSDERM-SCOP) PATCH TOP SCH ×2 (18:15→20:00)
[2019-10-28] MEDS ORDERED: ACETAMINOPHEN 650 MG SUPP (TYLENOL) PR PRN (18:15)
[2019-10-28] MEDS ORDERED: RT-ALBUTEROL/IPRATROPIUM 3 ML (DUONEB) VIAL INH PRN (18:15)
[2019-10-28] MEDS ORDERED: SALIVA STIMULANT MOUTH SPRAY (BIOTENE) 1.5 OZ MM PRN (18:15)
[2019-10-28] MEDS ORDERED: PROMETHAZINE INJ 25 MG/ML (PHENERGAN) AMP IVP PRN (18:15)
[2019-10-28] MEDS ORDERED: ARTIFICAL TEARS 0.4 ML UNIT DOSE (REFRESH PLUS) OU PRN (18:15)
[2019-10-28] MEDS ORDERED: GLYCOPYRROLATE 0.2 MG/ML (ROBINUL) 2 ML VIAL IV PRN (18:15)
[2019-10-28] MEDS ORDERED: ONDANSETRON 4 MG/2 ML (SDV) Z0FRAN IVP PRN (18:15)
--- NOTE | 2019-10-28 21:47 | NUR ---
PER THE FAMILY'S WISHES AND DPOA THIS PT'S MEDICATIONS WERE STOPPED AND THE PT IS ON COMFORT CARE. DAUGHTER CURRENTLY AT BEDSIDE.
[2019-10-28] MEDS: morphine INJ 4 MG/ML 1 ML (VIAL/SYRINGE) IV PRN (22:16)
[2019-10-28] MEDS: LORazepam INJ 2 MG/ML (ATIVAN) VIAL IVP PRN (23:23)
[2019-10-29] MEDS: morphine INJ 4 MG/ML 1 ML (VIAL/SYRINGE) IV PRN ×8 (00:24→20:05)
[2019-10-29] MEDS: LORazepam INJ 2 MG/ML (ATIVAN) VIAL IVP PRN ×6 (01:25→18:33)
[2019-10-29] MEDS ORDERED: CLOPIDOGREL 75 MG (PLAVIX) TABLET PO SCH (09:00)
[2019-10-29] MEDS ORDERED: ASPIRIN 81 MG CHEW (CHILDREN'S ASA) PO SCH (09:00)
--- NOTE | 2019-10-29 09:55 | Progress Note - Hospitalist ---
Subjective HPI/CC On Admission Date Seen by Provider: Oct 29, 2019 Time Seen by Provider: 09:52 Pt is a 74yoCM with a PMH of CAD, PVD, HTN, CKD, IDDMII, dementia who presented to the ER due lethargy x3days. This morning he is able to tell me he is in the hospital and was brought her by a car but otherwise does not know why he is here. He denies any complaints at the time and is currently getting an echo. He is unable to provide me any other history. I discussed with his nurse who states his pressure has been soft and he has gotten more tachycardiac since having to lay back for his echo. Subjective/Events-last exam Pt resting comfortably. Daughter at bedside and agrees he looks comfortable. Focused Exam Lactate Level 10/28/19 11:40: Lactic Acid Level 2.17*H 10/28/19 13:40: Lactic Acid Level 3.11*H 10/28/19 16:00: Lactic Acid Level 7.80*H Objective Exam Vital Signs Vital Signs Date Time Temp Pulse Resp B/P (MAP) Pulse Ox O2 Delivery O2 Flow Rate FiO2 10/29/19 07:32 Room Air 10/28/19 21:00 67 86/28 (47) 4.00 10/28/19 20:00 94 10/28/19 18:00 38 10/28/19 16:00 36.8 Capillary Refill : Less Than 3 Seconds General Appearance: Chronically ill, Obese Respiratory: No Accessory Muscle Use, Decreased Breath Sounds Cardiovascular: No Murmur, Irregularly Irregular Neurologic/Psychiatric: Other (resting comfortably) Results/Procedures Lab Patient resulted labs reviewed. Imaging: Reviewed Imaging Report Assessment/Plan Assessment and Plan Assess & Plan/Chief Complaint NSTEMI Cardiogenix shock A-fib with RVR CAD PVD Acute on Chronic Kidney Disease Hyperkalemia Transaminitis IDDMII Dementia Family has elected comfort measures only Comfort care order set placed Appears comfortable at this time Will transfer to 4th floor Palliative Care consulted, appreciate recs Clinical Quality Measures DVT/VTE Risk/Contraindication: Risk Factor Score Per Nursin RFS Level Per Nursing on Admit: 4+=Very High GEOVANNY JUSTICE MD Oct 29, 2019 09:55
[2019-10-29] MEDS ORDERED: ENOXAPARIN 300 MG/3 ML (LOVENOX) MULTI-DOSE VIAL SQ SCH (10:00)
--- NOTE | 2019-10-29 10:02 | NUR ---
PALLIATIVE CARE RN in to see patient. He is laying with his eyes closed, seems comfortable. He is having all over jerking movements, but his arms are less active than they were yesterday. He does open his eyes slightly but makes no attempt to verbalize. Daughter is in the room and has no needs at this time. Patient will transfer down to room 406 today.
--- NOTE | 2019-10-29 10:30 | NUR ---
PT TRANSFERRED TO ROOM 406 VIA BED ACCOMPANIED BY THIS RN. REPORT GIVEN TO VENUS SEARS FOR CONTINUING CARE. PT FAMILY AWARE OF TRANSFER.
--- NOTE | 2019-10-29 13:10 | Progress Note - Cardiology ---
Cardiology SOAP Progress Note Subjective: Unresponsive. Cannot provide any history Objective: I&O/Vital Signs 10/29/19 10/29/19 07:32 08:00 O2 Delivery Room Air Room Air 10/29/19 00:00 Intake Total 5350 ml Output Total 110 ml Balance 5240 ml Weight (Pounds): 348 Weight (Ounces): 3.0 Weight (Calculated Kilograms): 157.607865 Constitutional: No AAO x 3 (Oriented to self only); well-developed, well- nourished, other (unresponisive) Respiratory: No accessory muscle use, No respiratory distress; chest expansion is symmetric, chest is bilaterally symmetric, other (good air entry) Cardiovascular: irregularly irregular; No JVD; tachycardia, S1 and S2 Gastrointestional: No tender; soft, round, audible bowel sounds Extremities: other (brownish dicoloration of the skin of the legs; superficial ulcerations measuring up to 3 cm on the anterior aspecto of R leg; dressing to LLE which is D&I - not removed), significant edema (Bilt pitting and non-pitting edema) Neurologic/Psychiatric: grossly intact (uresponsive) Skin: No rash on exposed areas; other (reddish-brown discoloration of the legs, consistent with stasis dermatitis) Results/Procedures: Labs Laboratory Tests 10/28/19 13:40: Lactic Acid Level 3.11*H 10/28/19 16:00: Lactic Acid Level 7.80*H 10/28/19 16:02: Glucometer 311H Laboratory Tests 10/28/19 00:08 10/28/19 03:03 A/P: Assessment: Shock, likely septic. Cardiac etiology appears less likely because EF well preserved on echo of 10/28/19 Elevated troponin, likely due to shock (type 2 MO) Acute on chronic renal failure - WILFRID likely due to shock Ac hepatic injury, likely due to shock Acute mental status changes, likely due to shock PAF with RVR. PAF in the morning of 10/28/19 restored to sinus rhythm with iv amiodarone Echo on 10/28/19: Poor study, LVEF prob 50-55%, R heart enlargement, mod , RVSP 27 mmHg Coronary artery disease: in June 2006, 4.518 mm bare-metal stent to the LAD; in December 2009, Promus 3.012 mm distal right coronary artery. Last cardiac catheterization on December 28, [address] Kamara with severe in-stent restenosis in the LAD for which he underwent stent deployment using Radha 3 x 15 expanded to 3.2 mm overlapping with old stent. Had moderate to severe disease at the distal LAD which is very small artery. Venous stasis ulcers. H/o bilat leg wound for which he follows with Wound Care. Peripheral angiogram in July 2016 is reported to have shown [id number] disease H/o sinus node dysfunction H/o hypertension and hyperlipidemia H/o CEA done by Dr. Pineda in July 2014; most recent carotid duplex February 2018 showing moderate disease on the right, mild disease on the left Diabetes mellitus II Obesity, BMI is 39 Dementia Plan: Complex management Mr Cho has multisystem involvement and prognosis is poor. Dr Ospina, after consultation with the family, has changed patient status to comfort care We will sign off. Please call if needed Clinical Quality Measures Type of Care: Type of Care: Comfort Measures CINDY HENRY MD FACP FAC CCDS Oct 29, 2019 13:10
--- NOTE | 2019-10-29 22:40 | NUR ---
PT RESPIRATION CEASED AND HEART STOP AT 2054. CONFIRMED BY SECOND NURSE RENU WALSH. FAMILY PRESENT AT TIME OF . DR CARTY NOTIFIED. [employer] NOTIFIED AT 2129 AND INFORMED THAT PT IS NOT A CANDIDATE FOR [employer]ATION. REFERRAL NUMBER [id number]. [facility] CONTACTED PER FAMILY REQUEST. HOME HERE AT 2215 FOR RELEASE OF BODY; DENTURES SEND WITH BODY.
[2019-10-31] MEDS ORDERED: SCOPOLAMINE PATCH REMOVAL TP SCH (19:59)
== END 2019-10-29 22:30 | disposition expired ==
LOC: EDUNIT# 23:39 → ER 23:42 → ICU 10-28 01:00 → 4TH 10-29 10:30
PROVIDERS: ADMIT Internal Medicine; ATTEND Internal Medicine
DX: R57.0 Cardiogenic shock (principal); I21.A1 Myocardial infarction type 2; J96.01 Acute respiratory failure with hypoxia; N17.9 Acute kidney failure, unspecified; E87.1 Hypo-osmolality and hyponatremia; K72.90 Hepatic failure, unspecified without coma; Z66 Do not resuscitate; I12.9 Hypertensive chronic kidney disease with stage 1 through stage 4 chronic kidney disease, or unspecified chronic kidney disease; N18.9 Chronic kidney disease, unspecified; I25.10 Atherosclerotic heart disease of native coronary artery without angina pectoris; E11.649 Type 2 diabetes mellitus with hypoglycemia without coma; E11.42 Type 2 diabetes mellitus with diabetic polyneuropathy; E11.51 Type 2 diabetes mellitus with diabetic peripheral angiopathy without gangrene; I48.0 Paroxysmal atrial fibrillation; I35.0 Nonrheumatic aortic (valve) stenosis; I25.2 Old myocardial infarction; E78.00 Pure hypercholesterolemia, unspecified; E66.01 Morbid (severe) obesity due to excess calories; I87.2 Venous insufficiency (chronic) (peripheral); J44.9 Chronic obstructive pulmonary disease, unspecified; G47.30 Sleep apnea, unspecified; F03.90 Unspecified dementia, unspecified severity, without behavioral disturbance, psychotic disturbance, mood disturbance, and anxiety; R25.1 Tremor, unspecified; I65.23 Occlusion and stenosis of bilateral carotid arteries; K21.9 Gastro-esophageal reflux disease without esophagitis; M19.91 Primary osteoarthritis, unspecified site; F32.9 Major depressive disorder, single episode, unspecified; I45.10 Unspecified right bundle-branch block; E87.5 Hyperkalemia; Z96.651 Presence of right artificial knee joint; Z95.1 Presence of aortocoronary bypass graft; Z95.5 Presence of coronary angioplasty implant and graft; Z86.73 Personal history of transient ischemic attack (TIA), and cerebral infarction without residual deficits; Z79.4 Long term (current) use of insulin; Z68.38 Body mass index [BMI] 38.0-38.9, adult
CPT/HCPCS: 36415; 36569; 51701; 51702; 71045; 76937; 80053; 81000; 82962; 83605; 83735; 83880; 84145; 84484; 85025; 87040; 87449; 87899; 93005; 93041; 93306